=== PATIENT | male | born 1940 | race Caucasian/White ===

== ENCOUNTER 2019-11-25 11:32 | Outpatient (CLI) | payer MEDICARE, SELFPAY ==
--- NOTE | ~2019-11-25 | XR_ITS ---
XR shoulder RT min 2V DATE: 11/25/2019 11:53 INDICATION: Right shoulder pain, chronic for one year TECHNIQUE: 4 views COMPARISON: None FINDINGS: Status post sternotomy/CABG. Pacemaker leads are noted. No fracture or dislocation, periosteal reaction or bone destruction of the right shoulder. No abnorma l soft tissue calcification is identified. IMPRESSION: No fracture or dislocation or abnormal soft tissue calcification of right shoulder Reviewed, dictated and finalized at location B.
== END 2019-11-25 11:33 | disposition home or self-care (01) ==
PROVIDERS: PCP Family Medicine; Visit Provider Nurse Practitioner Family
DX: M25.511 Pain in right shoulder (principal)
CPT/HCPCS: 73030

== ENCOUNTER 2020-01-15 15:22 | Outpatient (CLI) | payer MEDICARE, SELFPAY ==
--- NOTE | ~2020-01-15 | XR_ITS ---
XR chest 2V DATE: 01/15/2020 15:50 INDICATION: Shortness of breath TECHNIQUE: PA and lateral views COMPARISON: 02/07/2018 two-view chest FINDINGS: Status post sternotomy and coronary artery bypass graft surgery. Aortic valve replacement. Left-sided triple lead pacemaker device with leads in expected position. Heart size appears within upper limits of normal. There is aortic calcification, ectasia, mild tortuo sity. No pulmonary infiltrate or consolidation or pleural effusion, pulmonary vascular congestion or pneumo thorax is evident. Chronic mild blunting of left costophrenic angle. Diffuse osteopenia. IMPRESSION: Postoperative changes Triple lead left-sided pacemaker No active cardiopulmonary disease Reviewed, dictated and finalized at location A.
[2020-01-15 15:36] LABS: Hematocrit 35.6 % (37.0-46.0); Hemoglobin 11.9 g/dL (12.4-15.3); Mean Corpuscular HGB Conc 33.4 g/dL (32.0-36.0); Mean Corpuscular Hemoglobin 33.1 pg (27.0-31.0); Mean Corpuscular Volume 98.9 fL (78.0-102.0); Mean Platelet Volume 9.4 fl (8.7-11.0); Platelet Count Result 112 K/mm3 (150-420); Red Cell Distribution Width 15.8 % (11.6-14.4); White Blood Count 6.4 K/mm3 (4.8-10.8)
[2020-01-15 15:57] LABS: BNP 301 pg/mL (0-100)
[2020-01-15 16:15] LABS: Alanine Aminotransferase 17 U/L (16-63); Albumin Level 3.8 g/dL (3.4-5.0); Alkaline Phosphatase 42 U/L (46-116); Anion Gap 13.9 mmol/L (7-16); Aspartate Amino Transferase 17 U/L (15-37); Bilirubin,Total 1.1 mg/dL (0.00-1.00); Blood Urea Nitrogen 41 mg/dL (7-18); Carbon Dioxide 30 mmol/L (21-32); Chloride 103 mmol/L (98-108); Estimated Glomerular Filt Rate 35; Glucose 121 mg/dL (70-99); Osmolality Calculated 307 mOsm/kg (285-295); Potassium 3.9 mmol/L (3.5-5.1); Sodium 143 mmol/L (136-145); Total Protein 7.2 g/dL (6.4-8.2)
== END 2020-01-15 15:23 | disposition home or self-care (01) ==
LOC: CHSLAB 15:25
PROVIDERS: PCP Family Medicine; Visit Provider Family Medicine
DX: R68.89 Other general symptoms and signs (principal); M79.89 Other specified soft tissue disorders; I50.9 Heart failure, unspecified
CPT/HCPCS: 36415; 71046; 80053; 83880; 85027

== ENCOUNTER 2020-01-21 12:45 | Inpatient (IN) | payer MEDICARE, SELFPAY ==
[2020-01-21] VITALS (17 sets, daily range): BP systolic 88–135; BP diastolic 44–84; PULSE 65–89; RESP 12–20; TEMP 36.4; O2SAT 91–100
--- NOTE | ~2020-01-21 | CT_ITS ---
EXAMINATION: CT chest abdomen pelvis wo con DATE: 01/21/2020 13:30 INDICATION: Back pain. Cough and dizziness. Abdominal aortic aneurysm. TECHNIQUE: Computed tomography (CT) of the chest, abdomen, and pelvis was performed without intraveno us contrast. Automated exposure control and iterative reconstruction technique were employed. The dos e-length product was 923.67 mGy-cm. COMPARISON: CT abdomen and pelvis 11/07/2017 FINDINGS: CHEST CT: There is mild emphysema. There is mild rounded atelectasis in left lower lobe adjacent to pleural thi ckening. A calcified right lung nodule and calcified right hilar and mediastinal lymph nodes are cons istent with old granulomatous disease. The heart size is normal. There are changes of aortic valve re placement. There are changes of coronary artery bypass grafting. There is a left chest pacer with martina ds in right atrium, right ventricle, and coronary sinus. ABDOMEN/PELVIS CT: The liver is normal. There are changes of cholecystectomy. Calcifications in the spleen are consisten t with old granulomatous disease. The pancreas and adrenal glands are normal. There is cortical thinn ing of the kidneys. There are cysts in the kidneys measuring up to 5.5 cm on the right. There is dive rticulosis of the colon without evidence of diverticulitis. There are no dilated loops of bowel. The appendix is normal. There is a 5.9 x 5.6 cm suprarenal and infrarenal fusiform aortic aneurysm. 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 There is a 2.7 cm fusiform aneurysm of l eft common iliac artery. There are no pathologically enlarged lymph nodes. There is no free intraperi toneal fluid. There is lumbar levoscoliosis and severe spondylosis. IMPRESSION: 1. 5.9 cm suprarenal and infrarenal aortic aneurysm, stable from 11/07/2017. Surgical consultation is recommended. Reviewed, dictated and finalized at location A. IMPRESSION: 1. 5.9 cm suprarenal and infrarenal aortic aneurysm, stable from 11/07/2017. Edison gical consultation is recommended.
--- NOTE | ~2020-01-21 | CT_ITS ---
EXAMINATION: CT brain wo con DATE: 01/21/2020 13:30 INDICATION: Syncope. TECHNIQUE: Computed tomography (CT) of the head was performed without intravenous contrast. The mA wa s adjusted according to patient size. Iterative reconstruction technique was employed. The dose-lengt h product was 681.00 mGy-cm. COMPARISON: Head CT 10/17/2017 FINDINGS: There is chronic encephalomalacia in the right parietal lobe. There is no intracranial hemo rrhage, acute infarction, or abnormal intracranial mass lesion. The ventricles are normal in size. Th ere is an old blowout fracture of medial wall of right orbit. The mastoid air cells are normal. IMPRESSION: 1. Chronic encephalomalacia in right parietal lobe. Reviewed, dictated and finalized at location A.
--- NOTE | 2020-01-21 12:56 | ECG_ITS ---
Measurements Intervals [place] Rate: 76 P: IA: 0 QRS: -88 QRSD: 193 T: 82 QT: 492 QTc: 557 Interpretive Statements ATRIAL FIBRILLATION RIGHT BUNDLE BRANCH BLOCK LEFT ANTERIOR FASCICULAR BLOCK BASELINE ARTIFACT- I, II, III, AVR, AVL ABNORMAL ECG Electronically Signed On 01-21-2020 13:28:07 CDT by Daniel Metzger D.O.
[2020-01-21 13:13] LABS: Glucose Point of Care 177 (65-105)
--- NOTE | 2020-01-21 13:37 | PC.NURSE ---
hand off report to TRI Bhat
[2020-01-21 13:56] LABS: Basophils Absolute Auto 0.03 K/mm3 (0.00-0.10); Basophils Percent Auto 0.4 % (0.0-1.0); Eosinophils Absolute Auto 0.15 K/mm3 (0.02-0.50); Hemoglobin 14.5 g/dL (12.4-15.3); Immature Granulocyte Absolute 0.03 K/mm3 (0.00-0.00); Immature Granulocyte Percent A 0.4 % (0.0-0.0); Lymphocytes Absolute Auto 1.34 K/mm3 (1.10-4.50); Lymphocytes Percent Auto 17.9 % (18.0-42.0); Mean Corpuscular HGB Conc 34.5 g/dL (32.0-36.0); Mean Corpuscular Hemoglobin 32.6 pg (27.0-31.0); Mean Corpuscular Volume 94.4 fL (78.0-102.0); Mean Platelet Volume 10.9 fl (8.7-11.0); Monocytes Absolute Auto 0.95 K/mm3 (0.10-0.90); Monocytes Percent Auto 12.7 % (2.0-11.0); Neutrophils Percent Auto 66.6 % (50.0-70.0); Platelet Count Result 167 K/mm3 (150-420); Red Blood Count 4.45 M/mm3 (4.70-6.10); Red Cell Distribution Width 15.3 % (11.6-14.4); White Blood Count 7.5 K/mm3 (4.8-10.8)
[2020-01-21 13:57] LABS: Base Excess ABG 4.9 mmol/L (0-2); Device NASAL CANNULA; HCO3 ABG 30.9 mmol/L (23-29); Modified Allen's Test Pass; Oxygen Content ABG 20.1 %vol (16.0-22.0); Oxygen Saturation ABG 98.7 % (95-97); Oxyhemoglobin 97.6 % (94-100); PCO2 ABG 50.9 mmHg (35-45); PO2 ABG 140.5 mmHg (75-85); Site Drawn LEFT RADIAL; Total Hemoglobin 14.5 g/dL
[2020-01-21] MEDS: SODIUM CHLORIDE 0.9% IV 1,000 ML 999 ML IV CONT (14:06)
[2020-01-21 14:14] LABS: Lactic Acid Reflex 2.5 mmol/L (0.4-2.0)
[2020-01-21 14:15] LABS: Alanine Aminotransferase 21 U/L (16-63); Alkaline Phosphatase 48 U/L (46-116); Anion Gap 14.9 mmol/L (7-16); Aspartate Amino Transferase 16 U/L (15-37); Bilirubin,Total 0.9 mg/dL (0.00-1.00); Blood Urea Nitrogen 61 mg/dL (7-18); Calcium 10.2 mg/dL (8.5-10.1); Carbon Dioxide 33 mmol/L (21-32); Chloride 94 mmol/L (98-108); Estimated CRCL calculation 21 ml/min; Estimated Glomerular Filt Rate 25; Glucose 135 mg/dL (70-99); Magnesium 2.4 mg/dL (1.8-2.4); Osmolality Calculated 307 mOsm/kg (285-295); Potassium 2.9 mmol/L (3.5-5.1); Sodium 139 mmol/L (136-145); Total Protein 8.8 g/dL (6.4-8.2); Troponin I < 0.02 ng/mL (0.00-0.056)
[2020-01-21 14:18] LABS: BNP 130 pg/mL (0-100); INR 1.3; Partial Thromboplastin Time 31.6 SEC (22.3-31.6); Prothrombin Time 13.2 Seconds (9.64-11.0)
[2020-01-21 14:48] LABS: Add Urine Microscopic? NO; Appearance Urine Clear (Clear); Bilirubin Urine Negative (Negative); Blood Urine Negative (Negative); Color Urine Yellow (Yellow); Glucose Urine UA Negative (Negative); Ketones Urine Negative (Negative); Leukocyte Esterase Ur Negative LEU/UL (Negative); Nitrate Urine Negative (Negative); Protein Urine Negative (Negative); Urobilinogen Urine 0.2 mg/dL (0.2-1.0)
[2020-01-21] MEDS: KCL 20 MEQ/SW 100 ML 100 ML 50 MEQ IVPB (14:50)
--- NOTE | 2020-01-21 15:01 | ED.SYNCOPE ---
HPI - Syncope General Chief Complaint: Syncope Stated Complaint: confussed passed out earlier today Source: patient Mode of arrival: other (from PCP office) Limitations: no limitations History of Present Illness HPI narrative: this is a 79-year-old gentleman that presents from his PCPs office after an episode of syncope that occurred earlier today. The patient states that final standing position the fall to the floor with no injuries no bowel or bladder dysfunction did not hit his head although he did have a syncopal episode witnessed by his with no no tremors, he was out for approximately a few seconds with no subsequent headaches some nausea with no vomiting no chest pain no shortness of breath no diarrhea constipation. The patient has a history of CHF, atrial fibrillation history of COPD has some a triple A that was recently repaired, patient currently is on Eliquis and Plavix. Patient's primary care physician started patellas own all along with his Lasix for excessive edema, patient apparently developed syncopal episode with dehydration and hypokalemia. Subsequently his metallic zone was discontinued, the patient presents with a blood pressure of 100/54 and was orthostatic with a systolic pressure of 80. MD complaint: loss of consciousness Onset (ago): hour(s) -: second(s) Prodromal symptoms: none and nausea/vomiting Witnessed: Yes - by Bystander Context: standing up Injuries sustained associated with event: none Current symptoms: none and weakness Related Data Home Medications Medication Instructions Recorded Confirmed albuterol sulfate 90 mcg/actuation 1 puff INHALATION Q4H PRN 08/17/19 01/21/20 aerosol inhaler allopurinol 100 mg tablet 100 mg PO DAILY 08/17/19 01/21/20 aspirin 81 mg tablet,delayed 81 mg PO DAILY 08/17/19 01/21/20 release atorvastatin 40 mg tablet 40 mg PO DAILY 08/17/19 01/21/20 carvedilol 12.5 mg tablet 12.5 mg PO Q12H 08/17/19 01/21/20 clopidogrel 75 mg tablet 75 mg PO DAILY 08/17/19 01/21/20 pregabalin 100 mg capsule 100 mg PO TID 08/17/19 01/21/20 tamsulosin 0.4 mg capsule 0.4 mg PO DAILY 08/17/19 01/21/20 finasteride 5 mg tablet 5 mg PO DAILY tablet 10/20/19 01/21/20 furosemide 20 mg tablet 20 mg PO DAILY tablet 10/20/19 01/21/20 furosemide 40 mg tablet 40 mg PO QAM tablet 10/20/19 01/21/20 Allergies Allergy/AdvReac Type Severity Reaction Status Date / Time oxycodone [OxyContin] Allergy Unknown Unknown Verified 01/15/20 07:55 Sulfonamides Allergy Unknown Unknown Uncoded 11/25/19 09:13 Review of Systems Review of Systems: All systems reviewed & are unremarkable except as noted in HPI and below PMFSH Past Medical History Medical History AAA (abdominal aortic aneurysm) Atrial fibrillation Bladder cancer CAD (coronary artery disease) Cardiac defibrillator in place CHF (congestive heart failure) CKD (chronic kidney disease), stage III COPD (chronic obstructive pulmonary disease) Erectile dysfunction REESE (generalized anxiety disorder) Gout Hypertension Myocardial infarction x3 KIARRA (obstructive sleep apnea) Uses CPAP Pacemaker Peripheral neuropathy PVD (peripheral vascular disease) Social History Social History Smoking packs per day: 1 Smoking cigarettes per day: 20.0 Years smoked: 45 Smoking pack-years: 45.00 Smoking status: Former smoker Tobacco type: cigarettes Alcohol intake: never Substance use: never Substance use type: does not use Additional living arrangements comments: . 4 Children. Additional occupation/education comments: Prior Occupation: [employer]. Gender identity (if verbalized by the patient): Male Exam Const: General: no acute distress and alert Orientation/consciousness: patient oriented x3 HENMT: Head: normal to inspection Eyes: Conjunctivae: conjunctivae normal Pupils: Equal, round and
--- NOTE | 2020-01-21 15:12 | PC.NURSE ---
RN CONTACTED [facility] CHARGE NURSE TRI MCKEON AT 1500 TO REQUEST INPATIENT ROOM PLACEMENT. LINDA STATES SHE IS UNABLE TO GIVE A BED AT THIS TIME AND WILL CALL ER BACK SOON.
--- NOTE | 2020-01-21 16:02 | PC.NURSE ---
RN CALLED BACK TO [facility] TO REQUEST A ROOM NUMBER AND TO GIVE REPORT. CHERY CHARGE NURSE PROVIDED RN WITH ROOM 205-A BUT WAS UNABLE TO TAKE REPORT AT THIS TIME. RN REQUESTED A CALL BACK WHEN SOMEONE WAS AVAILABLE TO TAKE REPORT.
[2020-01-21 16:57] LABS: Reflex Lactic Acid Yes or No Add Lactic
[2020-01-21] MEDS: SODIUM CHLORIDE 0.9% IV 1,000 ML 100 ML IV CONT (18:05)
[2020-01-21] MEDS: IPRATROPIUM 0.5 MG/ALBUTEROL SULFATE 2.5 MG AMPUL.NEB 3 ML INHALATION ×2 (18:05→23:12)
[2020-01-21] MEDS: carvediloL 3.125 MG TABLET PO (21:26)
[2020-01-21] MEDS: TRAMADOL HCL 50 MG TABLET PO (21:26)
[2020-01-22] VITALS (11 sets, daily range): BP systolic 98–135; BP diastolic 50–70; PULSE 60–91; RESP 16–18; TEMP 36.1; O2SAT 95–96
[2020-01-22] MEDS: IPRATROPIUM 0.5 MG/ALBUTEROL SULFATE 2.5 MG AMPUL.NEB 3 ML INHALATION (05:49)
[2020-01-22 05:58] LABS: Basophils Absolute Auto 0.03 K/mm3 (0.00-0.10); Basophils Percent Auto 0.4 % (0.0-1.0); Eosinophils Absolute Auto 0.15 K/mm3 (0.02-0.50); Eosinophils Percent Auto 2.2 % (1.0-6.0); Hematocrit 38.8 % (37.0-46.0); Hemoglobin 13.5 g/dL (12.4-15.3); Immature Granulocyte Absolute 0.02 K/mm3 (0.00-0.00); Immature Granulocyte Percent A 0.3 % (0.0-0.0); Immature Platelet Fraction Pct 1.9 % (1.0-7.0); Lymphocytes Absolute Auto 1.54 K/mm3 (1.10-4.50); Lymphocytes Percent Auto 22.5 % (18.0-42.0); Mean Corpuscular HGB Conc 34.8 g/dL (32.0-36.0); Mean Corpuscular Hemoglobin 32.7 pg (27.0-31.0); Mean Corpuscular Volume 93.9 fL (78.0-102.0); Mean Platelet Volume 10.4 fl (8.7-11.0); Monocytes Percent Auto 13.2 % (2.0-11.0); Neutrophils Absolute Auto 4.2 K/mm3 (1.7-7.2); Neutrophils Percent Auto 61.4 % (50.0-70.0); Platelet Count Result 144 K/mm3 (150-420); Red Blood Count 4.13 M/mm3 (4.70-6.10); Red Cell Distribution Width 15.3 % (11.6-14.4); White Blood Count 6.8 K/mm3 (4.8-10.8)
[2020-01-22 06:07] LABS: INR 1.2; Prothrombin Time 12.7 Seconds (9.64-11.0)
[2020-01-22 06:12] LABS: BNP 158 pg/mL (0-100)
[2020-01-22 06:19] LABS: Lactic Acid Reflex 1.6 mmol/L (0.4-2.0)
[2020-01-22 06:26] LABS: Alanine Aminotransferase 18 U/L (16-63); Albumin Level 3.7 g/dL (3.4-5.0); Alkaline Phosphatase 39 U/L (46-116); Anion Gap 14.5 mmol/L (7-16); Aspartate Amino Transferase 15 U/L (15-37); Bilirubin,Total 0.8 mg/dL (0.00-1.00); Blood Urea Nitrogen 57 mg/dL (7-18); Calcium 9.4 mg/dL (8.5-10.1); Carbon Dioxide 31 mmol/L (21-32); Chloride 98 mmol/L (98-108); Estimated CRCL calculation 25 ml/min; Estimated Glomerular Filt Rate 31; Glucose 114 mg/dL (70-99); Osmolality Calculated 308 mOsm/kg (285-295); Sodium 141 mmol/L (136-145); Total Protein 7.5 g/dL (6.4-8.2)
[2020-01-22 06:27] LABS: Potassium 2.5 mmol/L (3.5-5.1)
--- NOTE | 2020-01-22 08:00 | PC.NURSE ---
Eating breakfast at the bedside, denies dizzyness this am, states feeling fine
[2020-01-22] MEDS: APIXABAN 2.5 MG TABLET 5 MG PO (08:40)
[2020-01-22] MEDS: TAMSULOSIN HCL 0.4 MG CAPSULE PO (08:40)
[2020-01-22] MEDS: ASPIRIN 81 MG ENTERIC TABLET PO (08:40)
[2020-01-22] MEDS: FINASTERIDE 5 MG TABLET PO (08:41)
[2020-01-22] MEDS: PREGABALIN 50 MG CAPSULE 100 MG PO (08:41)
[2020-01-22] MEDS: POTASSIUM CHLORIDE 10 MEQ TABLET PO (08:41)
[2020-01-22] MEDS: ATORVASTATIN 40 MG TABLET PO (08:41)
[2020-01-22] MEDS: FUROSEMIDE 40 MG TABLET PO (08:41)
[2020-01-22] MEDS: CLOPIDOGREL BISULFATE 75 MG TABLET PO (08:41)
[2020-01-22] MEDS: allopurinoL 100 MG TABLET PO (08:41)
[2020-01-22] MEDS: TRAZODONE HCL 50 MG TABLET PO (08:41)
[2020-01-22] MEDS: TRAMADOL HCL 50 MG TABLET PO (08:42)
--- NOTE | 2020-01-22 09:10 | PC.NURSE ---
Patient removed telemetry, states is going home, advised would have to check with doctor, states that doesn't matter, he is going home
--- NOTE | 2020-01-22 09:15 | PC.NURSE ---
Putting shoes on, states will need help to tie them, up in room independent, no dizzyness noted, gait steady, states is going home no matter what today, not willing to have IV restarted at this time, did take oral medication this am
--- NOTE | 2020-01-22 09:25 | PC.NURSE ---
Hospitalist on the phone with , patient carleygloriared spoke with on the phone, states is leaving and promptly proceeded to elevator to leave, followed patient down to ER admitting area, states will not stay and doens't have to , [place] he feels [place] will follow up with his regular doctor
--- NOTE | 2020-01-22 09:30 | PC.NURSE ---
contacted by admitting department and states daughter is on her way to get patient
--- NOTE | 2020-01-22 09:35 | PC.NURSE ---
Leaving against medical advice, states will not put up with this any more, doesn't want an IV and feels fine, nothing wrong with him, signed the AMA form under diress per patient, did not refuse to sign, was willing to take oral medication but felt like he was being forced to stay and no one would listen to him, did not like how he was being treated by the providers this am, states will walk over to the doctors office to talk to them,
== END 2020-01-22 09:40 | disposition left against medical advice (07) | DRG 641 ==
LOC: CHSED 12:49 → CHS2ND 16:15
PROVIDERS: Admitting Provider Emergency Medicine; Emergency Provider Emergency Medicine; PCP Family Medicine; Visit Provider Emergency Medicine
DX: E86.0 Dehydration (principal); E87.6 Hypokalemia; I13.0 Hypertensive heart and chronic kidney disease with heart failure and stage 1 through stage 4 chronic kidney disease, or unspecified chronic kidney disease; I50.9 Heart failure, unspecified; N18.3 Chronic kidney disease, stage 3 (moderate); I48.20 Chronic atrial fibrillation, unspecified; J44.9 Chronic obstructive pulmonary disease, unspecified; I73.9 Peripheral vascular disease, unspecified; G62.9 Polyneuropathy, unspecified; M10.9 Gout, unspecified; I25.10 Atherosclerotic heart disease of native coronary artery without angina pectoris; Z95.810 Presence of automatic (implantable) cardiac defibrillator; G47.33 Obstructive sleep apnea (adult) (pediatric); I25.2 Old myocardial infarction; Z87.891 Personal history of nicotine dependence; I71.4 Abdominal aortic aneurysm, without rupture; R55 Syncope and collapse; F41.1 Generalized anxiety disorder; Z53.29 Procedure and treatment not carried out because of patient's decision for other reasons
CPT/HCPCS: 36415; 36600; 70450; 71250; 74176; 80053; 81003; 82805; 82948; 83605; 83735; 83880; 84484; 85025; 85055; 85380; 85610; 85730; 93005; 94640; 96361; 96365; 99285; A9270; J3480; J7030

== ENCOUNTER 2020-01-22 10:39 | Outpatient (CLI) | payer MEDICARE, SELFPAY ==
--- NOTE | ~2020-01-22 | NM_ITS ---
EXAMINATION: NM pulmonary perfusion DATE: 01/22/2020 11:20 INDICATION: Shortness of breath. TECHNIQUE: 4.5 mCi Tc-99m MAA was administered intravenously for perfusion images. Scintigraphic im ages of the chest were obtained. COMPARISON: Chest CT 01/21/2020, chest radiographs 01/15/2020 FINDINGS: Perfusion images show large defects in the upper lobes and left lower lobe. ] IMPRESSION: 1. Nondiagnostic (low or intermediate probability). Reviewed, dictated and finalized at location A.
--- NOTE | 2020-01-23 01:43 | PM.EVENT ---
Event Note Event Note Event Note: Patient states that he feels well this morning is adamant about going home soon as possible. I explained that he needed to complete testing to ensure that he did not have in a board or daily cause of his syncope and the patient states that he does not want any further testing and wants to leave the hospital. I told him that he may have grave disability, or rehospitalization if his potassium is not corrected pulmonary emboli are not ruled out. Patient states he understands and wishes to go home now. alert and oriented. No respiratory distress. Lungs are clear to auscultation bilaterally. Irregularly irregular Within normal rate. Extremities are warm dry and pink with scant edema At the ankles. Patient signed AMA to leave today. I have examined the patient and reviewed the chart. I discussed the patient with A Marito HESS and agree with her assessment and plan.
== END 2020-01-22 10:40 | disposition home or self-care (01) ==
PROVIDERS: PCP Family Medicine; Visit Provider Emergency Medicine
DX: R79.89 Other specified abnormal findings of blood chemistry (principal)
CPT/HCPCS: 78580; A9540

== ENCOUNTER 2020-04-15 15:21 | Outpatient (CLI) | payer MEDICARE, SELFPAY ==
[2020-04-15 15:52] LABS: Creatinine Urine 59.43 mg/dL (40-278); Total Protein Urine Random < 7.0 mg/dL (0.0-11.9)
[2020-04-15 16:34] LABS: Anion Gap 9 mmol/L (8-16); Blood Urea Nitrogen 31 mg/dL (7-18); Calcium 8.7 mg/dL (8.5-10.1); Carbon Dioxide 29 mmol/L (21-32); Chloride 104 mmol/L (98-108); Estimated Glomerular Filt Rate 39; Glucose 94 mg/dL (70-99); Osmolality Calculated 300 mOsm/kg (285-295); Phosphorus 4.3 mg/dL (2.6-4.7); Potassium 4.2 mmol/L (3.5-5.1); Sodium 142 mmol/L (136-145)
[2020-04-19 15:25] LABS: Parathyroid Intact 144 pg/mL (14-64)
[2020-04-19 19:25] LABS: Vitamin D 25 Hydroxy 48 ng/mL (30-100)
== END 2020-04-15 15:22 | disposition home or self-care (01) ==
LOC: CHSLAB 15:25
PROVIDERS: PCP Internal Medicine; Visit Provider Internal Medicine Nephrology
DX: N18.3 Chronic kidney disease, stage 3 (moderate) (principal); I12.9 Hypertensive chronic kidney disease with stage 1 through stage 4 chronic kidney disease, or unspecified chronic kidney disease; R80.8 Other proteinuria
CPT/HCPCS: 36415; 80069; 82306; 82570; 83970; 84156

== ENCOUNTER 2020-06-27 14:49 | Outpatient (CLI) | payer MEDICARE, SELFPAY ==
--- NOTE | ~2020-06-27 | CT_ITS ---
EXAMINATION: CT abdomen pelvis wo con DATE: 06/27/2020 17:09 INDICATION: Acute left lower quadrant pain and blood in stools. TECHNIQUE: Computed tomography (CT) of the abdomen and pelvis was performed without intravenous contr ast. Automated exposure control and iterative reconstruction technique were employed. The dose-length product was 893.67 mGy-cm. COMPARISON: 01/21/2020 FINDINGS: Unchanged band of chronic round atelectasis extending across the left lower lobe. Chronic trace left pleural effusion likely loculated with pleural thickening. Calcified right lower lobe nodule consiste nt with old granulomatous disease. Heart size is normal. Partially visualized change of prior aortic valve replacement. Three lead pacemaker/AICD seen with lead tips terminating at the right atrial appe ndage, apex of the right ventricle and in a coronary vein along the lateral wall of the left ventricl e having traversed the coronary sinus. No pericardial effusion. Cholecystectomy clips at the gallbladder fossa. A few splenic calcifications consistent with old gran ulomatous disease. Liver, pancreas and bilateral adrenal glands are normal. Bilateral renal cortical atrophy, mild on the right and moderate on the left. Bilateral renal cysts the largest on the right m easuring 6.0 cm. There is mild colonic diverticulosis with a sigmoid predominance. There is no adjac ent inflammatory change to suggest diverticulitis. Normal appendix. There is contrast throughout the small bowel extending into the cecum with no obstruction. Short segment of small bowel extends acros s a shallow widemouthed ventral hernia along an oblique surgical scar at the left lower quadrant ante rior abdominal wall. Bladder is normal. There is extensive calcified atherosclerosis of the aorta and many of the other arteries. Fusiform a bdominal aortic aneurysm with superimposed small left-sided saccular component between the levels of the takeoff of the celiac axis and superior mesenteric artery where it measures up to 5.8 x 5.4 cm wh ich is without significant interval change. No significant interval change in a 2.0 cm fusiform aneur ysm of the right common iliac artery and 2.7 x 2.4 cm fusiform aneurysm of the left common iliac sona ry. Bilateral fat-containing inguinal hernias. No free intraperitoneal gas or fluid. No pathologicall y enlarged abdominal or pelvic lymphadenopathy. Mild lumbar levocurvature with severe spondylosis. IMPRESSION: 1. No acute intra-abdominal/pelvic process. 2. No significant interval change in a fusiform abdominal aortic aneurysm which measures up to 5.8 x 5.4 cm in maximal diameter proximally. If not performed in the interval, surgical consultation would be indicated. Reviewed, dictated and finalized at location A. GE HAND IMPRESSION: 1. No acute intra-abdominal/pelvic process. 2. No significant interval change in a fusiform abdominal aortic aneurysm which measures up to 5.8 x 5.4 cm in maximal diameter proximally. If not performed i n the interval, surgical consultation would be indicated.
[2020-06-27 15:08] LABS: Basophils Absolute Auto 0.04 K/mm3 (0.00-0.10); Basophils Percent Auto 0.6 % (0.0-1.0); Eosinophils Absolute Auto 0.14 K/mm3 (0.02-0.50); Eosinophils Percent Auto 2.3 % (1.0-6.0); Hematocrit 32.7 % (37.0-46.0); Hemoglobin 10.8 g/dL (12.4-15.3); Immature Granulocyte Absolute 0.01 K/mm3 (0.00-0.00); Immature Granulocyte Percent A 0.2 % (0.0-0.0); Immature Platelet Fraction Pct 2.4 % (1.0-7.0); Immature Reticulocyte Fraction 13.7 % (2.0-16.52); Lymphocytes Absolute Auto 1.29 K/mm3 (1.10-4.50); Lymphocytes Percent Auto 20.8 % (18.0-42.0); Mean Corpuscular Hemoglobin 32.9 pg (27.0-31.0); Mean Corpuscular Volume 99.7 fL (78.0-102.0); Mean Platelet Volume 10.4 fl (8.7-11.0); Monocytes Absolute Auto 0.75 K/mm3 (0.10-0.90); Monocytes Percent Auto 12.1 % (2.0-11.0); Platelet Count Result 100 K/mm3 (150-420); Red Blood Count 3.28 M/mm3 (4.70-6.10); Red Cell Distribution Width 15.2 % (11.6-14.4); Reticulocyte Hemoglobin Conten 37.6 pg (28.0-35.0); Reticulocytes Absolute 0.08 M/mm3 (0.02-0.1); White Blood Count 6.2 K/mm3 (4.8-10.8)
[2020-06-27 15:28] LABS: INR 1.2; Partial Thromboplastin Time 29.2 SEC (22.3-31.6); Prothrombin Time 12.6 Seconds (9.64-11.0)
[2020-06-27 15:33] LABS: Alanine Aminotransferase 18 U/L (16-63); Albumin Level 3.7 g/dL (3.4-5.0); Alkaline Phosphatase 37 U/L (46-116); Aspartate Amino Transferase 14 U/L (15-37); Bilirubin,Total 0.7 mg/dL (0.00-1.00); Carbon Dioxide 31 mmol/L (21-32); Chloride 105 mmol/L (98-108); Ferritin 141 ng/mL (26-388); Potassium 4.4 mmol/L (3.5-5.1); Sodium 142 mmol/L (136-145); Total Protein 7.2 g/dL (6.4-8.2)
[2020-06-27 15:35] LABS: Anion Gap 6 mmol/L (8-16); Blood Urea Nitrogen 38 mg/dL (7-18); Estimated Glomerular Filt Rate 41; Glucose 100 mg/dL (70-99); Osmolality Calculated 303 mOsm/kg (285-295)
[2020-06-27 15:52] LABS: Iron 118 ug/dL (65-175); Percent Iron Saturation 41 % (12-57)
== END 2020-06-27 14:50 | disposition home or self-care (01) ==
LOC: CHSLAB 14:53
PROVIDERS: PCP Internal Medicine; Visit Provider Internal Medicine
DX: R10.32 Left lower quadrant pain (principal); K92.1 Melena
CPT/HCPCS: 36415; 74176; 80053; 82728; 83540; 83550; 85025; 85046; 85055; 85610; 85730

== ENCOUNTER 2020-07-02 02:02 | Outpatient (CLI) | payer MEDICARE, SELFPAY ==
[2020-07-02 18:04] LABS: SARS-CoV-2 RNA PCR Negative
== END 2020-07-02 02:03 | disposition home or self-care (01) ==
LOC: ANHCOVIDDT 02:03
PROVIDERS: PCP Internal Medicine; Visit Provider Surgery
DX: Z01.818 Encounter for other preprocedural examination (principal); Z20.828 Contact with and (suspected) exposure to other viral communicable diseases
CPT/HCPCS: 87635; C9803; U0003

== ENCOUNTER 2020-07-05 02:49 | Day surgery (SDC) | payer MEDICARE, SELFPAY ==
[2020-07-01 12:44] VITALS: BMI 28.8
--- NOTE | 2020-07-05 07:21 | WPDANESEPPF ---
Anes - Initial Pre Proc Eval Procedure: Operation Date: 07/05/20 13:30 Proposed Procedures p Esophagogastroduodenoscopy & Colonoscopy - Luis Mckinney MD Date/Time: 07/05/20 07:21 Surgeon: Luis Mckinney MD Pre Op Diagnosis: Melena, GI Bleed Patient Data Age: 80 Gender: M Height: 1.73 m Weight: 86 kg Allergies Allergy/AdvReac Type Severity Reaction Status Date / Time oxycodone [OxyContin] Allergy Unknown Hallucinati Verified 07/05/20 11:12 ng Sulfa (Sulfonamide Allergy Unknown Rash Verified 07/05/20 11:12 Antibiotics) Home Medications Medication Instructions Recorded Confirmed Type apixaban 5 mg tablet 5 mg PO BID #180 tablet 07/31/19 07/01/20 Rx allopurinol 100 mg tablet 100 mg PO DAILY 08/17/19 07/01/20 History aspirin 81 mg tablet,delayed 81 mg PO DAILY 08/17/19 07/01/20 History release atorvastatin 40 mg tablet 40 mg PO DAILY 08/17/19 07/01/20 History carvedilol 12.5 mg tablet 12.5 mg PO Q12H 08/17/19 07/01/20 History pregabalin 100 mg capsule 100 mg PO TID 08/17/19 07/01/20 History tamsulosin 0.4 mg capsule 0.4 mg PO DAILY 08/17/19 07/01/20 History finasteride 5 mg tablet 5 mg PO DAILY tablet 10/20/19 07/01/20 History furosemide 20 mg tablet 20 mg PO QPM tablet 10/20/19 07/01/20 History furosemide 40 mg tablet 40 mg PO QAM tablet 10/20/19 07/01/20 History tramadol 50 mg tablet 50 mg PO Q6H #90 each 01/04/20 07/01/20 Rx trazodone 50 mg tablet 50 mg PO TID #90 tablet 01/08/20 07/01/20 Rx potassium chloride 20 mEq 40 meq PO DAILY #180 tablet 02/01/20 07/01/20 Rx tablet,extended release Other Studies: There is extensive calcified atherosclerosis of the aorta and many of the other arteries. Fusiform abdominal aortic aneurysm with superimposed small left-sided saccular component between the levels of the takeoff of the celiac axis and superior mesenteric artery where it measures up to 5.8 x 5.4 cm which is without significant interval change. 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 Bilateral fat-containing inguinal hernias. No free intraperitoneal gas or fluid. No pathologically enlarged abdominal or pelvic lymphadenopathy. Mild lumbar levocurvature with severe spondylosis. IMPRESSION: 1. No acute intra-abdominal/pelvic process. 2. No significant interval change in a fusiform abdominal aortic aneurysm which measures up to 5.8 x 5.4 cm in maximal diameter proximally. If not performed in the interval, surgical consultation would be indicated. Patient hx anesthesia problems: none Family hx anesthesia problems: none [facility] Past Medical History Medical History (Updated 06/30/20 @ 08:53 by Regla Medrano) AAA (abdominal aortic aneurysm) Atrial fibrillation Bladder cancer CAD (coronary artery disease) Cardiac defibrillator in place CHF (congestive heart failure) CKD (chronic kidney disease), stage III COPD (chronic obstructive pulmonary disease) Erectile dysfunction REESE (generalized anxiety disorder) Gout High cholesterol Hypertension Myocardial infarction x3 KIARRA (obstructive sleep apnea) Uses CPAP Pacemaker Peripheral neuropathy PVD (peripheral vascular disease) Surgical History Surgical History (Updated 07/05/20 @ 07:24 by Chip Duarte MD) AICD (automatic cardioverter/defibrillator) present History of aortic valve repair History of back surgery History of bladder surgery TURB procedure 2009 History of cholecystectomy History of coronary artery stent placement History of heart valve replacement History of hernia repair incisional History of tonsillectomy and adenoidectomy History of transcatheter aortic valve replacement (TAVR) S/P CABG (coronary artery bypass graft) Status post placement of cardiac pacemaker Family History Family History (Reviewed 06/30/20 @ 08:07 by Hodan Villalta [facility] [address]) Father Family history of aortic aneurysm
[2020-07-05 11:12] VITALS: BP 108/55; PULSE 70; RESP 16; TEMP 35.9; O2SAT 93
[2020-07-05] MEDS: AMPICILLIN 2 GM/NS 100 ML 2 GM/100 ML BAG IVPB (11:27)
[2020-07-05] MEDS: LACTATED RINGERS 1,000 ML 150 ML IV CONT (11:28)
[2020-07-05 11:35] LABS: Hematocrit 29.9 % (42.0-52.0); Hemoglobin 9.8 g/dL (14.0-18.0); Mean Corpuscular HGB Conc 32.8 g/dl (32-36); Mean Corpuscular Hemoglobin 33.1 pg (26-34); Mean Platelet Volume 10.3 fl (7.4-10.4); Platelet Count Result 100 k/mm3 (150-375); Red Blood Count 2.96 M/mm3 (4.6-6.20); Red Cell Distribution Width 16.7 % (11.5-14.5); White Blood Count 7.5 K/mm3 (4.5-10.0)
[2020-07-05 11:51] LABS: Anion Gap 11 mmol/L (8-16); Blood Urea Nitrogen 18 mg/dL (9-20); Carbon Dioxide 30 mmol/L (22-30); Chloride 98 mmol/L (98-107); Estimated CRCL calculation 35 ml/min; Estimated Glomerular Filt Rate 45; Glucose 110 mg/dL (75-110); Potassium 3.6 mmol/L (3.4-5.0); Sodium 139 mmol/L (137-145)
[2020-07-05] MEDS: GENTAMICIN 80MG/SOD CHL 50 ML 80 MG/50 ML BAG 100 MG IVPB (12:08)
[2020-07-05] MEDS: BENZOCAINE (*SP) 60 ML SPRAY CAN (HURRICAINE) 1 SPRAY MUCOUS MEM (12:14)
--- NOTE | 2020-07-05 12:19 | WPDHPUPDATE1 ---
History and Physical Update Update Date/Time: 07/05/20 12:19 History and Physical has been reviewed, including an updated exam of the patient. There are NO changes in the patient's condition. Risks, benefits, and alternatives have been discussed and questions answered. Patient agrees to proceed with procedure.
--- NOTE | 2020-07-05 12:31 | SUR.OPER ---
EGD COMPLETED AT 1237 COLONOSCOPY STARTED AT 1245
[2020-07-05 13:31] VITALS: BP 97/52; PULSE 52; RESP 12; O2SAT 99
--- NOTE | 2020-07-05 13:31 | SUR.OPER ---
DR. DICKSON TO CALL AND UPDATE SPOUSE AND ASK HER TO COME TO HOSPITAL
[2020-07-05 13:41] VITALS: BP 101/61; PULSE 70; RESP 18; O2SAT 96
[2020-07-05 13:51] VITALS: BP 120/72; PULSE 70; RESP 13; O2SAT 96
== END 2020-07-05 14:33 | disposition home or self-care (01) ==
PROVIDERS: PCP Internal Medicine; Visit Provider Surgery
PROC: 0DJ08ZZ Inspection of Upper Intestinal Tract, Via Natural or Artificial Opening Endoscopic (ICD-10-PCS; CPT 43235; principal; 2020-07-05 13:30)
DX: K92.2 Gastrointestinal hemorrhage, unspecified (principal); K63.5 Polyp of colon; K29.50 Unspecified chronic gastritis without bleeding; K57.30 Diverticulosis of large intestine without perforation or abscess without bleeding; I48.20 Chronic atrial fibrillation, unspecified; I13.0 Hypertensive heart and chronic kidney disease with heart failure and stage 1 through stage 4 chronic kidney disease, or unspecified chronic kidney disease; I50.9 Heart failure, unspecified; I25.10 Atherosclerotic heart disease of native coronary artery without angina pectoris; I71.4 Abdominal aortic aneurysm, without rupture; I73.9 Peripheral vascular disease, unspecified; I25.2 Old myocardial infarction; N18.30 Chronic kidney disease, stage 3 unspecified; J44.9 Chronic obstructive pulmonary disease, unspecified; E78.00 Pure hypercholesterolemia, unspecified; M10.9 Gout, unspecified; G62.9 Polyneuropathy, unspecified; G47.33 Obstructive sleep apnea (adult) (pediatric); F41.1 Generalized anxiety disorder; Z85.51 Personal history of malignant neoplasm of bladder; Z95.0 Presence of cardiac pacemaker; Z79.01 Long term (current) use of anticoagulants; Z95.2 Presence of prosthetic heart valve; Z87.891 Personal history of nicotine dependence
CPT/HCPCS: 43239; 45380; 36415; 80048; 85027; 87081; 88305; 88342; J0290; J1580; J2001; J2704; J7120

== ENCOUNTER 2020-08-11 14:01 | Outpatient (CLI) | payer MEDICARE, SELFPAY ==
[2020-08-11 14:24] LABS: Creatinine Urine 156.75 mg/dL (40-278); Total Protein Urine Random 12.8 mg/dL (0.0-11.9); Ur Ttl Prot Creatinine Ratio 0.08 mg/mg (0-0.20)
[2020-08-11 15:23] LABS: Albumin Level 3.6 g/dL (3.4-5.0); Anion Gap 6 mmol/L (8-16); Blood Urea Nitrogen 18 mg/dL (7-18); Calcium 8.8 mg/dL (8.5-10.1); Carbon Dioxide 32 mmol/L (21-32); Chloride 104 mmol/L (98-108); Estimated Glomerular Filt Rate 42; Glucose 128 mg/dL (70-99); Osmolality Calculated 297 mOsm/kg (285-295); Phosphorus 3.5 mg/dL (2.6-4.7); Potassium 3.3 mmol/L (3.5-5.1); Sodium 142 mmol/L (136-145)
== END 2020-08-11 14:02 | disposition home or self-care (01) ==
LOC: CHSLAB 14:03
PROVIDERS: PCP Internal Medicine; Visit Provider Internal Medicine Nephrology
DX: R80.8 Other proteinuria (principal); I12.9 Hypertensive chronic kidney disease with stage 1 through stage 4 chronic kidney disease, or unspecified chronic kidney disease; N18.30 Chronic kidney disease, stage 3 unspecified
CPT/HCPCS: 36415; 80069; 82570; 84156

== ENCOUNTER 2020-09-20 12:43 | Outpatient (CLI) | payer MEDICARE, SELFPAY ==
--- NOTE | ~2020-09-20 | US_ITS ---
EXAMINATION: US carotid duplex BI DATE: 09/20/2020 13:35 INDICATION: Carotid stenosis TECHNIQUE: Grayscale, color Doppler, and pulsed Doppler images of the cervical carotid arteries were obtained. The degree of vessel stenosis is placed in one of the following categories: normal, <50%, 5 0-69%, >=70% but less than near-occlusion, near-occlusion, or total occlusion. Note that percent sten osis relative to normal distal artery lumen diameter is indirectly measured from velocity measurement s as described by Krish, et al. Radiology 2003; 229:340-346. COMPARISON: 11/29/2010 FINDINGS: RIGHT: The right common carotid artery (CCA) peak systolic velocity (PSV) is 56 cm/s. The right internal car otid artery (ICA) PSV is 88 cm/s. The right ICA end-diastolic velocity (EDV) is 15 cm/s. The right IC A/CCA PSV ratio is 1.6. Grayscale and color Doppler images yield an estimate of <50% diameter reducti on from plaque in the ICA. The external carotid artery (ECA) PSV is 131 cm/s. There is antegrade flow in the right vertebral artery. LEFT: The left CCA PSV is 53 cm/s. The left ICA PSV is 78 cm/s. The left ICA EDV is 22 cm/s. The left ICA/C CA PSV ratio is 1.5. Grayscale and color Doppler images yield an estimate of <50% diameter reduction from plaque in the ICA. The ECA PSV is 71 cm/s. There is antegrade flow in the left vertebral artery. IMPRESSION: 1. <50% stenosis in the right internal carotid artery. 2. <50% stenosis in the left internal carotid artery. Reviewed, dictated and finalized at location B. [employer]
== END 2020-09-20 12:44 | disposition home or self-care (01) ==
LOC: CHSIMG 12:44
PROVIDERS: PCP Internal Medicine; Visit Provider Internal Medicine
DX: I65.29 Occlusion and stenosis of unspecified carotid artery (principal)
CPT/HCPCS: 93880

== ENCOUNTER 2020-12-29 10:40 | Inpatient (IN) | payer MEDICARE, SELFPAY ==
[2020-12-29] VITALS (24 sets, daily range): BP systolic 111–140; BP diastolic 54–84; PULSE 70–76; RESP 11–25; TEMP 35.6–36.6; O2SAT 93–100; BMI 29.1
--- NOTE | ~2020-12-29 | CT_ITS ---
EXAMINATION: CT chest abdomen pelvis wo con EXAM DATE: 12/30/2020 10:20 INDICATION: Abdominal aneurysm. TECHNIQUE: Spiral CT of the chest, abdomen and pelvis was performed without contrast. Axial, ruth l and sagittal images chest, abdomen and pelvis were reviewed. Coronal maximum intensity pixel image s of chest reviewed. The dose-length product (DLP) for this examination was 880.84 mGy-cm. The expo sure was tailored according to patient size (auto mA exposure control), and iterative reconstruction (ASIR) was used as additional dose reduction technique. Prior abdomen pelvis CT 06/27/2020 comparison and chest abdomen pelvis CT 01/21/2020. FINDINGS: CHEST: Some small scattered bilateral groundglass opacities, nonspecific pneumonitis. There are some different regions of less apparent groundglass opacity in the lungs on previous examination. Left lo wer lobe round atelectasis and right basilar calcified granuloma unchanged. Small left pleural effusi on. Tracheobronchial tree is patent. There is no mediastinal, hilar or axillary lymphadenopathy. There is no pneumothorax. Heart normal in size. There are sternotomy wires, and cardiac/coronary surgical changes. Correlate with prior history. Pacemaker/AICD device. Aortic valve stent.Small amou nt of ventricular septal fat attenuation probably an old infarction. The interventricular septum is p erceptible, suggesting patient is anemic. ABDOMEN PELVIS: Aneurysmal dilation of the entire abdominal aorta, with the proximal aorta having a s accular appearance, again measuring 5.9 cm x 4.0 cm. There is extension into the left common iliac ar tanya which measures 2.5 cm. The liver, spleen, adrenal glands and pancreas are unremarkable. There are cholecystectomy clips. T here is no nephrolithiasis or hydronephrosis. Bilateral renal cysts again noted largest on the right up to 6 cm. There is bilateral renal cortical thinning, atrophy. The prostate is unremarkable. Small bilateral inguinal fat-containing hernias. The bladder is unremarkable. There is no retroperitonea l or pelvic lymphadenopathy. There is extensive scattered arterial sclerotic disease. The appendix is not positively visualized. There is no pericecal inflammatory change to suggest appe ndicitis. There is mild to moderate scattered colonic diverticulosis. There is no adjacent inflammat ory change to suggest diverticulitis. The stomach and small bowel are unremarkable. There is expect ed amount of colonic stool. No free intraperitoneal gas. There are no osteoblastic or osteolytic lesions identified. Mild to moderate lumbar levoscoliosis and moderate to severe disc disease. IMPRESSION: 1. Stable size to saccular suprarenal and more fusiform infrarenal abdominal aortic aneurysms up to 5.9 cm; vascular surgical consult indicated. 2. Some small scattered groundglass density opacities, nonspecific pneumonitis. 3. Small left pleural effusion. 4. Scattered colonic diverticulosis. 5. Small inguinal hernias. Reviewed, dictated and finalized at location B. IMPRESSION: 1. Stable size to saccular suprarenal and more fusiform infrarenal abdominal a ortic aneurysms up to 5.9 cm; vascular surgical consult indicated. 2. Some small scattered groundglass density opacities, nonspecific pneumonitis . 3. Small left pleural effusion. 4. Scattered colonic diverticulosis. 5. Small inguinal hernias.
--- NOTE | ~2020-12-29 | XR_ITS ---
EXAMINATION: XR chest 2V EXAM DATE: 12/29/2020 11:45 INDICATION: Shortness of breath and dizziness. TECHNIQUE: Frontal and lateral projections of the chest obtained and reviewed. Comparison is made to prior examination from 01/15/2020. FINDINGS: Multi lead pacemaker/AICD device. Sternotomy wires are present without findings to suggest sternal dehiscence. Stent across the aortic valve. There is pulmonary vascular congestion. There is no pneumothorax suspected. Possible mild pulmonary edema. There are mild bony degenerative changes. T here is aortic arteriosclerosis. IMPRESSION: 1. Cardiomegaly, congestion and possible mild pulmonary edema. Reviewed, dictated and finalized at location B.
--- NOTE | 2020-12-29 10:59 | ECG_ITS ---
Measurements Intervals [place] Rate: 69 P: [place]: 0 QRS: -84 QRSD: 183 T: 113 QT: 496 QTc: 535 Interpretive Statements ELECTRONIC VENTRICULAR PACEMAKER BASELINE ARTIFACT- I, III, AVR, AVL NO FURTHER INTERPRETATION IS POSSIBLE ATYPICAL ECG Electronically Signed On 12-29-2020 12:31:21 CDT by Daniel Metzger D.O.
[2020-12-29 11:28] LABS: Basophils Percent Auto 0.4 % (0.2-1.2); Eosinophils Absolute Auto 0.1 K/mm3 (0-0.3); Eosinophils Percent Auto 2.6 % (0-4.4); Hematocrit 21.5 % (42.0-52.0); Immature Granulocyte Absolute 0.02 K/mm3 (0.00-0.031); Immature Granulocyte Percent A 0.4 % (0-0.5); Lymphocytes Absolute Auto 0.98 K/mm3 (0.9-3.2); Lymphocytes Percent Auto 21.5 % (18.3-44.2); Mean Corpuscular HGB Conc 30.7 g/dl (32-36); Mean Corpuscular Hemoglobin 31.6 pg (26-34); Mean Corpuscular Volume 102.9 fl (80-100); Mean Platelet Volume 11.4 fl (7.4-10.4); Monocytes Absolute Auto 0.6 K/mm3 (0.1-0.6); Monocytes Percent Auto 13.8 % (2.6-8.5); Neutrophils Absolute Auto 2.8 K/mm3 (1.3-6.7); Neutrophils Percent Auto 61.3 % (45.5-73.1); Platelet Count Result 104 k/mm3 (150-375); Red Blood Count 2.09 M/mm3 (4.6-6.20); Red Cell Distribution Width 16.5 % (11.5-14.5); White Blood Count 4.6 K/mm3 (4.5-10.0)
[2020-12-29 11:31] LABS: Hemoglobin 6.6 g/dL (14.0-18.0)
[2020-12-29 11:39] LABS: Anion Gap 6 mmol/L (8-16); Blood Urea Nitrogen 33 mg/dL (9-20); Calcium 8.7 mg/dL (8.4-10.2); Carbon Dioxide 31 mmol/L (22-30); Chloride 104 mmol/L (98-107); Estimated CRCL calculation 30 ml/min; Estimated Glomerular Filt Rate 32; Glucose 112 mg/dL (75-110); Potassium 3.5 mmol/L (3.4-5.0); Sodium 141 mmol/L (137-145)
[2020-12-29 11:47] LABS: NT Pro B Type Natriuretic Pept 2600 pg/mL (5-100)
[2020-12-29 12:09] LABS: Iron 27 ug/dL (49-181)
[2020-12-29 12:11] LABS: Prothrombin Time 22.9 Seconds (11.1-14.7)
[2020-12-29 12:12] LABS: Partial Thromboplastin Time 44.5 SECONDS (22.3-36.8)
[2020-12-29 12:19] LABS: Percent Iron Saturation 8 % (20-50)
--- NOTE | 2020-12-29 12:22 | PC.NURSE ---
Called Xin and lab to add on retic count
[2020-12-29 12:26] LABS: Immature Reticulocyte Fraction 19.8 % (3.0-15.9); Reticulocyte Hemoglobin Conten 20.7 pg (28.2-35.7); Reticulocyte Percent 4.24 % (0.7-4.3); Reticulocytes Absolute 0.09 B/L (32.2-175.7)
--- NOTE | 2020-12-29 13:07 | ED.SOB ---
HPI - SOB/Dyspnea General Chief Complaint: Shortness of Breath/Dyspnea Stated Complaint: sob x several weeks Time Seen by Provider: 12/29/20 11:22 Source: patient Mode of arrival: ambulatory Limitations: no limitations History of Present Illness HPI Narrative: 80-year-old male History of A. fib, CHF Complains of worsening dyspnea for about 2 weeks and general fatigue and weakness This is a gradual and subacute onset, less pronounced when supine or trying to sleep but very bothersome to him when he was trying to walk around He does not report any swelling or weight gain He has been followed by cardiologists in [place] and reported that when he is felt like this before it was felt to be heart failure and they may have made some adjustments to his pacemaker he is not sure about that He does not have a cough or a fever, he has not had any chest pain He denies nausea vomiting, no change in his stools except that he tends to be constipated About 6 months ago he had an EGD showing gastritis Related Data Home Medications Medication Instructions Recorded Confirmed allopurinol 100 mg tablet 100 mg PO DAILY 08/17/19 07/01/20 aspirin 81 mg tablet,delayed 81 mg PO DAILY 08/17/19 07/01/20 release atorvastatin 40 mg tablet 40 mg PO DAILY 08/17/19 07/01/20 carvedilol 12.5 mg tablet 12.5 mg PO Q12H 08/17/19 07/01/20 pregabalin 100 mg capsule 100 mg PO TID 08/17/19 07/01/20 tamsulosin 0.4 mg capsule 0.4 mg PO DAILY 08/17/19 07/01/20 finasteride 5 mg tablet 5 mg PO DAILY tablet 10/20/19 07/01/20 furosemide 20 mg tablet 20 mg PO QPM tablet 10/20/19 07/01/20 furosemide 40 mg tablet 40 mg PO QAM tablet 10/20/19 07/01/20 Allergies Allergy/AdvReac Type Severity Reaction Status Date / Time oxycodone [OxyContin] Allergy Unknown Hallucinati Verified 12/29/20 11:03 ng Sulfa (Sulfonamide Allergy Unknown Rash Verified 12/29/20 11:03 Antibiotics) Review of Systems Review of Systems: All systems reviewed & are unremarkable except as noted in HPI and below Constitutional: Constitutional: Reports no additional constitutional complaints, Denies chills, Reports fatigue, Denies fever(s), Denies headache(s) and Reports weakness Eyes: Eyes: Reports no additional eye complaints and Denies change in vision ENT: Denies headache(s) and Denies sore throat Cardiovascular: Cardiovascular: Denies chest pain and Denies dyspnea Respiratory: Respiratory: Denies cough and Reports dyspnea Gastrointestinal: Gastrointestinal: Denies abdominal pain, Reports constipation, Denies diarrhea and Denies vomiting Genitourinary: Genitourinary: Denies dysuria and Denies urinary frequency Musculoskeletal: Musculoskeletal: Denies deformity, Denies arthralgias, Denies joint swelling and Denies numbness Integumentary/Breasts: Skin/Breast: Denies rash and Denies wounds Neurologic: Denies headache(s), Denies focal weakness and Denies numbness Psychiatric: Psychiatric: Reports no additional psychiatric complaints Endocrine: Endocrine: Reports no additional endocrine complaints Hematologic/Lymphatic: Hematologic/Lymphatic: Reports no additional hematologic/lymphatic complaints Allergic/Immunologic: Allergic/Immunologic: Reports no additional allergic/immunologic complaints [facility] Past Medical History Medical History (Updated 12/29/20 @ 13:17 by Isiah Wilder MD) AAA (abdominal aortic aneurysm) Atrial fibrillation Bladder cancer CAD (coronary artery disease) Cardiac defibrillator in place CHF (congestive heart failure) CKD (chronic kidney disease), stage III COPD (chronic obstructive pulmonary disease) Erectile dysfunction REESE (generalized anxiety disorder) Gout High cholesterol Hypertension Myocardial infarction x3 KIARRA (obstructive sleep apnea) Uses CPAP Pacemaker Peripheral neuropathy PVD (peripheral vascular disease) Surgical History Surgical History (Updated 07/05/20 @ 07:24 by Chip Duarte MD) AICD (automatic cardiov
[2020-12-29] MEDS: PANTOPRAZOLE SODIUM IV 40 MG VIAL IV PUSH ×2 (14:28→21:59)
[2020-12-29] MEDS: FUROSEMIDE INJ 40 MG/4 ML VIAL IV PUSH ×2 (14:28→21:59)
--- NOTE | 2020-12-29 15:00 | ADMGEN ---
This patient, Jovan Rodas, was admitted to Medical Room 256-01. Patient/family oriented to hospital policies and general routines including ID bracelet, bed and alarms, visiting hours, pain management, procedures, bathroom and other care routines, personal items, smoking policy, room service/diet, and visiting hours. Information on how to activate the Rapid Response Team has been discussed. Patient/Family are encouraged to report perceived risks to care and to ask questions if they do not understand what they are told or what they should do.
[2020-12-29] MEDS: SODIUM CHLORIDE 0.9% IV 250 ML 30 ML IV CONT (18:21)
--- NOTE | 2020-12-29 21:38 | PM.IMHP ---
H&P: HPI History of Present Illness Date/Time: 12/29/20 21:38 this is a 80-year-old male patient who has a history of having a TAVR and paroxysmal atrial fibrillation and is on Eliquis as well as aspirin. The patient has a application lead with the [facility] and [place]. The patient also has a history of congestive heart failure I did find a note from January of last year from his application lead Dr. Prashanth Koch who noted that the patient had an echo performed early 2019 and was read as moderately decreased left ventricular systolic function and normally functioning bioprosthetic aortic valve and mild mitral and tricuspid insufficiency. The patient has a AICD which he has had for several years. The patient was concerned about having it replaced. I believe he told me he had it for 7 years. The tells me that he has seen Dr. Yang who was going to get the patient set up with a application lead here at [facility]. The patient has not yet seen a application lead here. The patient has been having a history of anemia and gradually progressively decreasing his hemoglobin. There is a note in the patient's chart where the patient has all the surgeon Dr. Mckinney here who performed an EGD and colonoscopy. The patient had repair of anterior perforation of a duodenal bulb ulcer at that time. He was also found to have gastritis, diverticulosis without perforation or abscess without bleeding. Cecal polyp removed. The patient's stated that they were going to go shopping and go out to eat but the patient became too short of breath. The patient stated that he is short of breath with exertion and can only walk about 5 ft without getting short of breath. The patient has not been back to see his application lead. The patient has been fatigue and weak for the last 2 weeks. The patient was scheduled to have an echo and a CT of his abdomen tomorrow. The ER doctor stated that the patient had a Hemoccult-positive stool. GI has been consulted. Cardiology has been consulted as well for congestive heart failure. I did order unit packed red blood cells for hemoglobin of 6.6. The patient was ordered IV Lasix for complaints of shortness of breath. The patient's chest x-ray was read as cardiomegaly, congestion and possible mild pulmonary edema. I did call the and update her about the plan Of care. The patient is being admitted to inpatient services on the date of service of 12/29/2020. Chief Complaint: yao Review of Systems Review of Systems: All systems reviewed & are unremarkable except as noted in HPI and below Constitutional: Constitutional: Reports as per HPI and Reports no additional constitutional complaints Eyes: Eyes: Reports as per HPI and Reports no additional eye complaints ENT: Reports system reviewed and no additional complaints, except as documented and Reports Normal hearing present Cardiovascular: Cardiovascular: Reports no additional cardiovascular complaints Respiratory: Respiratory: Reports no additional respiratory complaints and Reports no additional respiratory complaints Gastrointestinal: Gastrointestinal: Reports as per HPI and Reports no additional gastrointestinal complaints Musculoskeletal: Musculoskeletal: Reports no additional musculoskeletal complaints Integumentary/Breasts: Skin/Breast: Reports system reviewed and no additional complaints, except as docu and Reports as per HPI Neurologic: Reports system reviewed and no additional complaints, except as documented, Reports as per HPI and Reports Normal hearing present Psychiatric: Psychiatric: Reports no additional psychiatric complaints and Reports as per HPI Endocrine: Endocrine: Reports no additional endocrine complaints Hematologic/Lymphatic: Hematologic/Lymphatic: Reports no additional hematologic/lymphatic complaints Allergic/Immunologic: Allergic/Immunologic: Reports no additional allergic/immunologic complaints [facility] Past Medical History Medical History
[2020-12-29] MEDS: PREGABALIN (*CRX) 50 MG CAPSULE 100 MG PO (22:11)
[2020-12-29] MEDS: traZODone HCL 50 MG TABLET PO (22:12)
[2020-12-29] MEDS: carvediloL 12.5 MG TABLET PO (22:18)
[2020-12-30] VITALS (9 sets, daily range): BP systolic 93–134; BP diastolic 50–74; PULSE 66–70; RESP 15–20; TEMP 36.2–36.6; O2SAT 92–99
--- NOTE | 2020-12-30 | ECHO_ITS ---
Patient Info Name: Jovan Rodas Age: 80 years : 1940 Gender: Male Ht: 68 in Wt: 191 lbs BSA: 2.06 m2 HR: 70 bpm BP: 109 / 54 mmHg Heart Rhythm: Paced Technical Quality: Good Exam Date: 12/30/2020 9:36 AM Exam Location: [facility] Pulmonary Exam Room: 256 Patient Status: Inpatient Admit Date: 12/29/2020 Staff Ordering Physician: Gely Cartwright NP National Coverage Specialist: Shila Salgado RDCS Attending Provider: Stacie Aviles MD Referring Physician: Chay BENAVIDES; Exam Type: CA echo doppler color flow Study Info Indications - CHF Complete two-dimensional, color flow and Doppler transthoracic echocardiogram is performed. Summary 1. Complete two-dimensional, color flow and Doppler transthoracic echocardiogram is performed. 2. Left ventricular chamber dimension is mildly enlarged. 3. Left ventricular systolic function is moderately reduced, estimated at 35-40%. 4. The inferior segment is akinetic. 5. Right ventricular chamber dimension is normal. 6. Linear artifact in right ventricle suggestive of catheter(s), pacemaker lead(s), or ICD lead(s). 7. Left atrial chamber dimension is moderately enlarged. 8. There is no regurgitation of the TAVR aortic valve. 9. Modest transvalvular gradient of the TAVR prosthesis, appears normal. 10. There is mild mitral valve regurgitation. Left Ventricle Left ventricular chamber dimension is mildly enlarged. Left ventricular systolic function is moderately reduced, estimated at 35-40%. The left ventricular diastolic function is indeterminate. The inferior segment is akinetic. Right Ventricle Right ventricular chamber dimension is normal. Linear artifact in right ventricle suggestive of catheter(s), pacemaker lead(s), or ICD lead(s). Left Atria Left atrial chamber dimension is moderately enlarged. Right Atria Right atrial chamber dimension is mildly enlarged. Aortic Valve There is no regurgitation of the TAVR aortic valve. Modest transvalvular gradient of the TAVR prosthesis, appears normal. Pulmonic Valve The pulmonic valve is not well visualized. Mitral Valve The mitral valve has normal leaflets. There is mild mitral valve regurgitation. Tricuspid Valve The tricuspid valve leaflets are normal. There is mild tricuspid valve regurgitation. Pericardium/Pleural The pericardium appears normal. Aorta The aortic root size at the sinus of Valsalva is normal. Left Ventricular Outflow Tract Name Value Normal LVOT 2D LVOT Diameter 2.1 cm LVOT Doppler LVOT Peak Velocity 110 cm/s LVOT Peak Gradient 5 mmHg LVOT Mean Gradient 3 mmHg LVOT VTI 22 cm LVOT VTI/AV VTI Ratio 0.8 LVOT Stroke Volume 74 ml LVOT CO 15.3 l/min LVOT CI 7.4 l/min/m2 Pulmonic Valve Name Value Normal
[2020-12-30 00:49] LABS: Hematocrit 24.3 % (42.0-52.0); Hemoglobin 7.6 g/dL (14.0-18.0)
[2020-12-30 06:29] LABS: Basophils Percent Auto 0.5 % (0.2-1.2); Eosinophils Absolute Auto 0.1 K/mm3 (0-0.3); Eosinophils Percent Auto 2.5 % (0-4.4); Hemoglobin 7.7 g/dL (14.0-18.0); Immature Granulocyte Absolute 0.02 K/mm3 (0.00-0.031); Immature Granulocyte Percent A 0.4 % (0-0.5); Lymphocytes Absolute Auto 0.99 K/mm3 (0.9-3.2); Lymphocytes Percent Auto 17.7 % (18.3-44.2); Mean Corpuscular HGB Conc 30.8 g/dl (32-36); Mean Corpuscular Volume 97.3 fl (80-100); Mean Platelet Volume 10.5 fl (7.4-10.4); Monocytes Absolute Auto 0.7 K/mm3 (0.1-0.6); Monocytes Percent Auto 12.5 % (2.6-8.5); Neutrophils Absolute Auto 3.7 K/mm3 (1.3-6.7); Neutrophils Percent Auto 66.4 % (45.5-73.1); Platelet Count Result 102 k/mm3 (150-375); Red Blood Count 2.57 M/mm3 (4.6-6.20); Red Cell Distribution Width 18.7 % (11.5-14.5); White Blood Count 5.6 K/mm3 (4.5-10.0)
[2020-12-30 06:39] LABS: Magnesium 2.2 mg/dL (1.6-2.3)
[2020-12-30 07:59] LABS: Free T4 Free Thyroxine Reflex 0.71 ng/dL (0.78-2.19)
--- NOTE | 2020-12-30 08:12 | WPDGICN ---
Assessment and Plan Assessment and plan (1) GI bleeding: Qualifiers: GI bleed type/associated pathology: melena Qualified Code(s): K92.1 - Melena Code(s): K92.2 - Gastrointestinal hemorrhage, unspecified Status: Acute Assessment and Plan: EGD few months ago showed gastritis will proceed with urgent EGD and assess if more bleeding (patient report dark stools but also using iron) continue with iv protonix for now (2) Acute on chronic blood loss anemia: Code(s): D62 - Acute posthemorrhagic anemia Status: Acute Assessment and Plan: egd now, more recommendations after scope he already had colonoscopy just few months ago by Dr Cameron. (3) CHF (congestive heart failure): Code(s): I50.9 - Heart failure, unspecified Status: Acute Assessment and Plan: managed by cardiology (4) AAA (abdominal aortic aneurysm): Qualifiers: Presence of rupture: without rupture Qualified Code(s): I71.4 - Abdominal aortic aneurysm, without rupture Code(s): I71.4 - Abdominal aortic aneurysm, without rupture Status: Acute Assessment and Plan: stable, cardiology on board (5) CAD (coronary artery disease): Code(s): I25.10 - Atherosclerotic heart disease of [place] coronary artery without angina pectoris Status: Acute Assessment and Plan: on medical therapy (6) Atrial fibrillation: Qualifiers: Atrial fibrillation type: paroxysmal Qualified Code(s): I48.0 - Paroxysmal atrial fibrillation Code(s): I48.91 - Unspecified atrial fibrillation Status: Acute GI Consult Note Consult date/time: 12/30/20 08:12 Reason for consult: gib, melena HPI: Jovan Rodas is a 80 year old male with history of CAD, CHF s/p pacemaker/AICD, s/p TAVR, paroxysmal atrial fibrillation on Eliquis and aspirin, AAA and previous history of anemia with EGD and colonoscopy 06/[address] Mckinney that showed erosive gastritis and colon diverticulosis. He came here with gradually worsening dyspnea for a period of time, he says that is taking iron and his stool has been dark for a while. He was admitted to the hospital, evaluated by cardiology but also noted hb 6.6 (few months ago mid 9s). He received blood transfusion and feeling better. CT scan a/p reviewed, showed stable size to saccular suprarenal and more fusiform infrarenal abdominal aortic aneurysms up to 5.9 cm, small scattered groundglass density opacities, scattered colonic diverticulosis. Review of Systems Constitutional: Constitutional: Reports weakness Eyes: Eyes: Reports no additional eye complaints ENT: Reports Normal hearing present Cardiovascular: Cardiovascular: Denies chest pain Respiratory: Respiratory: Reports dyspnea on exertion Gastrointestinal: Gastrointestinal: Reports melena and Denies nausea Genitourinary: Genitourinary: Denies dysuria Musculoskeletal: Musculoskeletal: Denies neck pain Integumentary/Breasts: Skin/Breast: Denies dry skin Neurologic: Reports system reviewed and no additional complaints, except as documented Psychiatric: Psychiatric: Reports no additional psychiatric complaints [facility] Past Medical History Medical History (Updated 12/30/20 @ 12:32 by Jhonatan Strickland MD) AAA (abdominal aortic aneurysm) Acute on chronic blood loss anemia Atrial fibrillation Bladder cancer CAD (coronary artery disease) Cardiac defibrillator in place CHF (congestive heart failure) CKD (chronic kidney disease), stage III COPD (chronic obstructive pulmonary disease) Erectile dysfunction REESE (generalized anxiety disorder) Gout High cholesterol Hypertension Myocardial infarction x3 KIARRA (obstructive sleep apnea) Patient stated that he does not Use CPAP Pacemaker Peripheral neuropathy PVD (peripheral vascular disease) Surgical History Surgical History (Updated 12/29/20 @ 21:48 by Gely Cartwright NP) AICD (automatic cardioverter/defibril
--- NOTE | 2020-12-30 08:13 | PM.CNCAR ---
Assessment and Plan Additional Plan This is a 80-year-old man with: Obvious extensive history of coronary disease valvular heart disease and previous defibrillator implantation. He enters the hospital complaining of shortness of breath which appears to be the result of symptomatic anemia as there is no physical exam evidence of decompensated congestive heart failure at this time. Based on his history 1 would presume that he has and significant ischemic cardiomyopathy however that is an issue the patient wishes to dispute. Obviously we have no records of any of his previous extensive care. At this time I do not believe I can recommend anything else other than continuing his home medical regimen which consists of aspirin, atorvastatin, carvedilol, furosemide and a potassium supplement. It is interesting/curious that he is not on an ANGELA-inhibitor or ARB. His records should be requested from [facility] so we have the details of his bypass operation, previous interventions, TAVR and the identity of his ICD. The patient is very concerned about the fact that his ICD has not been checked for some time since he has not gone to his upset operator for an appointment. It is obviously impossible for us to provide that unless we know what sort of device he has. We will tried was sample some of those records and arrange for follow-up in our office. I did make it clear to this gentleman that we do not have electrophysiology services here at [facility] and if and when his device needs to be changed because of battery at [facility] that will happen at another institution. Jarett Yousif MD [facility] History of Present Illness History of Present Illness Consult date/time: 12/30/20 08:13 Consult reason: congestive heart failure Reason For Visit: anemia,chf Narrative: This is a 80-year-old man I am seeing at the request of the hospitalist today the stated reason for the consult is congestive heart failure. The patient came to the hospital yesterday and was admitted to the emergency room with complaints of dyspnea. Apparently the dyspnea as a complaint this been gradually worsening for a period of time. The patient is a rather poor historian regarding the details of his symptoms and admits to having a very poor memory for short-term events. In any event he was evaluated in the emergency room and admitted to the hospital. He was found to be profoundly anemic with a hemoglobin level is 6.6 g. He has received transfusion of some packed red cells and in that setting is being seen in consultation. He is not really reporting symptoms of accumulating edema orthopnea or PND or chest pain. His chest x-ray shows a somewhat enlarged cardiac silhouette, changes compatible with previous cardiothoracic surgery and presence of a biventricular ICD. He apparently has a long history of ischemic heart disease and valvular heart disease and has previously received all of his care up in [facility] by the [facility]. None of those records are available to me at the time of this consultation. The patient again is a somewhat poor historian but he states that his coronary disease history dates back to 23 years ago when he suffered a myocardial infarction and underwent multivessel bypass grafting in [place]. In the years that follow that he has had 2 percutaneous interventional procedures done. Obviously he can't tell me the details of any of that and again we do not have any of those records. In more recent years he states he had a transcatheter aortic valve replacement also in [place] and he states about 6 years ago in something like 2015 he had a defibrillator implanted by the Cardiology group up there as well. We have no information as to the identity of that device. He states his upset operator up there was a Dr. Prashanth Koch. He has not seen him in a while because he states it was inconvenient to be driving up to [place] for appointme
[2020-12-30] MEDS: allopurinoL 100 MG TABLET PO (08:21)
[2020-12-30] MEDS: ATORVASTATIN 40 MG TABLET PO (08:21)
[2020-12-30] MEDS: POTASSIUM CHLORIDE 20 MEQ TABLET.ER PO (08:21)
[2020-12-30] MEDS: FINASTERIDE 5 MG TABLET PO (08:22)
[2020-12-30] MEDS: FERROUS SULFATE 324 MG TABLET PO (08:22)
[2020-12-30] MEDS: carvediloL 12.5 MG TABLET PO ×2 (08:22→20:18)
[2020-12-30] MEDS: traZODone HCL 50 MG TABLET PO ×2 (08:23→16:42)
[2020-12-30] MEDS: PREGABALIN (*CRX) 50 MG CAPSULE 100 MG PO ×2 (08:23→16:41)
[2020-12-30] MEDS: FUROSEMIDE INJ 40 MG/4 ML VIAL IV PUSH ×2 (08:23→20:20)
[2020-12-30] MEDS: PANTOPRAZOLE SODIUM IV 40 MG VIAL IV PUSH (08:23)
[2020-12-30] MEDS: TAMSULOSIN HCL 0.4 MG CAPSULE PO (08:23)
[2020-12-30] MEDS: traMADol HCL (*CRX) 50 MG TABLET PO ×2 (08:41→16:41)
--- NOTE | 2020-12-30 09:49 | SUR.PREOP ---
DR LAWSON STATED NO ABX NEEDED FOR THIS PT HAVING EGD THAT HAS HAD AN AORTIC VALVE REPLACEMENT
[2020-12-30 10:21] LABS: Hematocrit 25.6 % (42.0-52.0); Hemoglobin 7.9 g/dL (14.0-18.0)
--- NOTE | 2020-12-30 11:10 | PC.NURSE ---
To GI lab via stretcher with GI lab staff.
[2020-12-30] MEDS: LACTATED RINGERS 1,000 ML 150 ML IV CONT (11:28)
--- NOTE | 2020-12-30 12:27 | WPDANESEPPF ---
Anes - Initial Pre Proc Eval Procedure: Operation Date: 12/30/20 12:00 Proposed Procedures p Esophagogastroduodenoscopy - Jhonatan Strickland MD Date/Time: 12/30/20 12:27 Surgeon: Stacie Aviles MD Pre Op Diagnosis: anemia,chf Patient Data Age: 80 Gender: M Height: 5 ft 8 in Weight: 87 kg Last Vital Signs Temp 36.4 C 12/30/20 11:22 Pulse 67 12/30/20 11:22 Resp 20 12/30/20 11:22 BP 109/74 12/30/20 11:22 Pulse Ox 97 12/30/20 11:22 Allergies Allergy/AdvReac Type Severity Reaction Status Date / Time oxycodone [OxyContin] Allergy Unknown Hallucinati Verified 12/29/20 15:29 ng Sulfa (Sulfonamide Allergy Unknown Rash Verified 12/29/20 15:29 Antibiotics) Home Medications Medication Instructions Recorded Confirmed Type apixaban 5 mg tablet 5 mg PO BID #180 tablet 07/31/19 12/29/20 Rx allopurinol 100 mg tablet 100 mg PO DAILY 08/17/19 12/29/20 History aspirin 81 mg tablet,delayed 81 mg PO DAILY 08/17/19 12/29/20 History release atorvastatin 40 mg tablet 40 mg PO DAILY 08/17/19 12/29/20 History carvedilol 12.5 mg tablet 12.5 mg PO Q12H 08/17/19 12/29/20 History pregabalin 100 mg capsule 100 mg PO TID 08/17/19 12/29/20 History tamsulosin 0.4 mg capsule 0.4 mg PO DAILY 08/17/19 12/29/20 History finasteride 5 mg tablet 5 mg PO DAILY tablet 10/20/19 12/29/20 History furosemide 20 mg tablet 20 mg PO QPM tablet 10/20/19 12/29/20 History furosemide 40 mg tablet 40 mg PO QAM tablet 10/20/19 12/29/20 History tramadol 50 mg tablet 50 mg PO Q6H #90 each 01/04/20 12/29/20 Rx trazodone 50 mg tablet 50 mg PO TID #90 tablet 01/08/20 12/29/20 Rx potassium chloride 20 mEq 40 meq PO DAILY #180 tablet 02/01/20 12/29/20 Rx tablet,extended release pantoprazole [Protonix] 40 mg PO QAM 56 Days #56 tablet 07/05/20 12/29/20 Rx Iron (ferrous sulfate) 325 mg PO DAILY 12/29/20 12/29/20 History Laboratory Tests 12/29/20 12/29/20 12/30/20 10:59 12:04 00:34 WBC RBC Hgb 7.6 g/dL L g/dL (14.0-18.0) Hct 24.3 % L % (42.0-52.0) MCV MCH MCHC RDW Plt Count MPV Immature Gran % (Auto) Neut % (Auto) Lymph % (Auto) [place] % (Auto) Eos % (Auto) Baso % (Auto) Lymph # (Auto) [place] # (Auto) Eos # (Auto) Baso # (Auto) Abs Immat Gran (auto) Absolute Neuts (auto) Absolute Nucleated RBC Nucleated RBC % Absolute Retic 0.09 B/L L B/L (32.2-175.7) Percent Retic 4.24 % % (0.7-4.3) Immature Retic Fraction 19.8 % H % (3.0-15.9) Retic Hgb Content 20.7 pg L pg (28.2-35.7) Magnesium TSH (Reflex) Free T4 Blood Type AB Positive Antibody Screen Negative Crossmatch See Detail 12/30/20 12/30/20 12/30/20 06:22 06:22 06:22 WBC 5.6 K/mm3 K/mm3 (4.5-10.0) RBC 2.57 M/mm3 L M/mm3 (4.6-6.20) Hgb 7.7 g/dL L g/dL (14.0-18.0) Hct 25.0 % L % (42.0-52.0) MCV 97.3 fl D fl (80-100) MCH 30.0 pg D pg (26-34) MCHC 30.8 g/dl L g/dl (32-36) RDW 18.7 % H % (11.5-14.5) Plt Count 102 k/mm3 L k/mm3 (150-375) MPV 10.5 fl H fl (7.4-10.4) Immature Gran % (Auto) 0.4 % % (0-0.5) Neut % (Auto) 66.4 % % (45.5-73.1) Lymph % (Auto) 17.7 % L % (18.3-44.2) [place] % (Auto) 12.5 % H % (2.6-8.5) Eos % (Auto) 2.5 % % (0-4.4) Baso % (Auto) 0.5 % % (0.2-1.2) Lymph # (Auto) 0.99 K/mm3 K/mm3 (0.9-3.2) [place] # (Auto) 0.7 K/mm3 H K/mm3 (0.1-0.6) Eos # (Auto) 0.1 K/mm3 K/mm3 (0-0.3) Baso # (Auto) 0.0 K/mm3 K/mm3 (0.0-0.
--- NOTE | 2020-12-30 13:30 | PC.NURSE ---
Received patient back from GI lab. Settled in room. No distress or c/o pain noted.
--- NOTE | 2020-12-30 13:37 | PM.IMPN ---
Progress Note: A&P Assessment and Plan (1) Anemia: Code(s): D64.9 - Anemia, unspecified Status: Acute Assessment and Plan: Likely 2/2 A/C Hgb 6.6-->7.7 today S/p 1 unit of PRBCs Steadily decline in H/H over the last year Continue with iron supp Endoscopies performed by Dr. Mciknney as mentioned above GI following, recommendations appreciated EGD with no obvious sign of bleeding Hematology consult pending Ok to resume apixaban and ASA per GI Plan for SB capsule endoscopy o/p (2) GI bleeding: Qualifiers: GI bleed type/associated pathology: melena Qualified Code(s): K92.1 - Melena Code(s): K92.2 - Gastrointestinal hemorrhage, unspecified Status: Acute Assessment and Plan: R/p S/p IV Protonix Resume apixaban and aspirin (3) CHF (congestive heart failure): Code(s): I50.9 - Heart failure, unspecified Status: Acute Assessment and Plan: Followed by cardiology in [place],Dr. Yang Cardiology following, recommendations appreciated CXR showed cardiomegaly and some mild pulmonary edema ECHO results pending Continue with medical management (4) REESE (generalized anxiety disorder): Code(s): F41.1 - Generalized anxiety disorder Status: Acute Assessment and Plan: No home meds (5) Gout: Code(s): M10.9 - Gout, unspecified Status: Chronic Assessment and Plan: Continue with allopurinol (6) Hypertension: Code(s): I10 - Essential (primary) hypertension Status: Chronic Assessment and Plan: Continue with Coreg Monitor (7) CKD (chronic kidney disease), stage III: Code(s): N18.3 - Chronic kidney disease, stage 3 (moderate) Status: Chronic Assessment and Plan: Cr 2.0 Followed by nephrology o/p Avoid nephrotoxins Renally dose all meds Monitor (8) Atrial fibrillation: Qualifiers: Atrial fibrillation type: paroxysmal Qualified Code(s): I48.0 - Paroxysmal atrial fibrillation Code(s): I48.91 - Unspecified atrial fibrillation Status: Acute Assessment and Plan: Resume Eliquis and aspirin Continue Coreg Monitor (9) CAD (coronary artery disease): Code(s): I25.10 - Atherosclerotic heart disease of [place] coronary artery without angina pectoris Status: Acute Assessment and Plan: Hx 4 vessel disease s/p CABG x2 stents Followed by Dr. Yang Subjective Date/time seen: 12/30/20 13:37 Pt seen and evaluated; pt is having ECHO; denies any CP, SOB, N/V/D or abdominal pain Review of Systems Review of Systems: All systems reviewed & are unremarkable except as noted in HPI and below Exam Const: General: no acute distress, alert and awake Orientation/consciousness: patient oriented x3 HENMT: Head: normocephalic and atraumatic Ears: hearing grossly normal bilaterally and external ears normal Face and sinus: face symmetric Mouth: Yes Normal oral and palatal mucosa present Eyes: Pupils: Equal, round and reactive pupils present EOM: EOMs intact bilaterally Neck: Neck: full ROM, trachea midline and no JVD Thyroid: thyroid normal Chest: Chest palpation & inspection: normal inspection of the chest Resp: Effort & Inspection: normal respiratory effort Auscultation: clear to auscultation bilaterally Cardio: Jugular venous distension: no JVD Rate: regular rate Rhythm: regular rhythm Heart sounds: S1 normal heart sound present and S2 normal heart sound present GI: Inspection: normal to inspection GI Palp: Yes Soft to palpation Percussion: Yes normal to percussion Auscultation: normal bowel sounds : General: Yes no CVA tenderness Back/Spine/Pelvis: Back: no CVA tenderness Skin: General skin exam: normal color Rashes: no rashes Neuro: General: patient oriented x3 and CN's II-XI intact bilaterally Cranial nerves: Yes Equal, round and reactive pupils present Speech: normal speech Psych: Appearance: grossly normal Affect: edwin
--- NOTE | 2020-12-30 13:57 | PC.NURSE ---
Patient states he wants to go home and have a big steak . Discussed anemia with patient and informed him that he is not discharged at this time. Patient states he wants to go home and wants the doctor called. Called Stefania [facility]CH[facility] and informed her of patient's request. Per Stefania, she states she is keeping the patient again tonight and will recheck his H/H in the morning.
--- NOTE | 2020-12-30 16:34 | PDONCCN ---
HPI - Date of Consult Date/Time: 12/30/20 16:34 Requesting Physician: Stacie Aviles MD Primary Care Provider: Ruddy Yang MD - Consult Narrative Reason for consult: Multifactorial anemia Narrative: Jovan Rodas is a 80 year old male with history of atrial fibrillation and has been on Eliquis along with aspirin. Patient also has a history of coronary artery disease status post coronary artery bypass as well as chronic kidney stage 3 disease. Patient has cardiac defibrillator in place. Patient came into the hospital with increasing shortness of breath and found to have hemoglobin of 6.6. He has been having black stool for last 6 months duration and had EGD and colonoscopy done in June [address] Mckinney that showed erosive gastritis and diverticulitis. He has been taking oral iron at least once a day. His weight and appetite stable. He received 1 unit of packed red blood cell on December 30. Patient had EGD done on December 30 as well that showed gastritis without any evidence of active bleeding. Review of Systems - Review of Systems All systems reviewed & are unremarkable except as noted in HPI and bel - Neurologic Reports system reviewed and no additional complaints, except as documented, Reports hearing normal, Reports weakness, Denies headache(s), Denies focal weakness, Denies numbness [facility] Medical History: Medical History (Last Updated 12/30/20 @ 12:32 by Jhonatan Strickland MD) AAA (abdominal aortic aneurysm) Acute on chronic blood loss anemia Atrial fibrillation Bladder cancer CAD (coronary artery disease) Cardiac defibrillator in place CHF (congestive heart failure) CKD (chronic kidney disease), stage III COPD (chronic obstructive pulmonary disease) Erectile dysfunction REESE (generalized anxiety disorder) Gout High cholesterol Hypertension Myocardial infarction x3 KIARRA (obstructive sleep apnea) Patient stated that he does not Use CPAP Pacemaker Peripheral neuropathy PVD (peripheral vascular disease) Surgical History: Surgical History (Last Reviewed 12/30/20 @ 12:31 by Lai Serrato MD) AICD (automatic cardioverter/defibrillator) present History of aortic valve repair History of back surgery History of bladder surgery TURB procedure 2009 History of cholecystectomy History of coronary artery stent placement 2 stents History of heart valve replacement History of hernia repair incisional History of tonsillectomy and adenoidectomy History of transcatheter aortic valve replacement (TAVR) S/P CABG (coronary artery bypass graft) Four vessel CABG Status post placement of cardiac pacemaker Family History: Family History (Last Reviewed 12/30/20 @ 12:31 by Lai Serrato MD) Father Family history of aortic aneurysm Acute myocardial infarction Mother Parkinsons disease - Social History Social History: Social History (Last Reviewed 12/30/20 @ 12:31 by Lai Serrato MD) Gender Identity: Gender identity (if verbalized by the patient): Male Alcohol Use: Alcohol intake: current Drinks per week: 2 Substance Use: Substance use: never Substance use type: does not use Others: Spiritual care concerns: No Smoking Status: Smoking status: Former smoker Smoking Pack-years: Smoking packs per day: 2 Smoking cigarettes per day: 40.0 Years smoked: 45 Smoking pack-years: 90.00 Meds Home Medications Medication Instructions Recorded Confirmed Type apixaban 5 mg tablet 5 mg PO BID #180 tablet 07/31/19 12/29/20 Rx allopurinol 100 mg tablet 100 mg PO DAILY 08/17/19 12/29/20 History aspirin 81 mg tablet,delayed 81 mg PO DAILY 08/17/19 12/29/20 History release atorvastatin 40 mg tablet 40 mg PO DAILY 08/17/19 12/29/20 History carvedilol 12.5 mg tablet 12.5 mg PO Q12H 08/17/19 12/29/20 History pregabalin 100 mg capsule 100 mg PO TID 08/17/19 12/29/20 History tamsulosin 0.
[2020-12-30 16:59] LABS: Hematocrit 27.4 % (42.0-52.0); Hemoglobin 8.5 g/dL (14.0-18.0)
[2020-12-30] MEDS: EPOETIN ALFA-EPBX 20,000 UNITS/ML VIAL 20000 UNITS SUB-Q (17:28)
[2020-12-30] MEDS: IRON SUCROSE COMPLEX 500 MG in SODIUM CHLORIDE 0.9% IV 250 ML 78.57 MG IVPB (17:29)
[2020-12-31 06:08] VITALS: BP 138/63; PULSE 71; RESP 16; TEMP 36.1; O2SAT 95
[2020-12-31] MEDS: PANTOPRAZOLE 40 MG TABLET PO (08:45)
[2020-12-31 08:46] VITALS: PULSE 76
[2020-12-31] MEDS: FINASTERIDE 5 MG TABLET PO (08:46)
[2020-12-31] MEDS: traZODone HCL 50 MG TABLET PO (08:46)
[2020-12-31] MEDS: TAMSULOSIN HCL 0.4 MG CAPSULE PO (08:46)
[2020-12-31] MEDS: PREGABALIN (*CRX) 50 MG CAPSULE 100 MG PO (08:46)
[2020-12-31] MEDS: carvediloL 12.5 MG TABLET PO (08:46)
[2020-12-31] MEDS: allopurinoL 100 MG TABLET PO (08:46)
[2020-12-31] MEDS: POTASSIUM CHLORIDE 20 MEQ TABLET.ER PO (08:46)
[2020-12-31] MEDS: FERROUS SULFATE 324 MG TABLET PO (08:47)
[2020-12-31] MEDS: ATORVASTATIN 40 MG TABLET PO (08:47)
[2020-12-31] MEDS: FUROSEMIDE INJ 40 MG/4 ML VIAL IV PUSH (08:47)
[2020-12-31] MEDS: traMADol HCL (*CRX) 50 MG TABLET PO (08:48)
--- NOTE | 2020-12-31 11:13 | WPDANESPN ---
Anes - Prog Note Post-Op Date/Time: 12/31/20 11:13 Cardiovascular status: normal Respiratory status: normal Airway patency: baseline Mental status: baseline Post-Op hydration status: normal Vital Signs: Last Vital Signs Temp 36.1 C L 12/31/20 06:08 Pulse 76 12/31/20 08:46 Resp 16 12/31/20 06:08 BP 138/63 12/31/20 06:08 Pulse Ox 95 12/31/20 06:08 Pain Score (VAS): 0 I/O: Intake & Output 12/30/20 12/31/20 12/31/20 23:59 07:59 15:59 Intake Total 475 200 300 Output Total 200 Balance 475 0 300 Laboratory Tests 12/30/20 16:37 12/29/20 11:10 12/30/20 16:37 Hgb 8.5 L Hct 27.4 L Post-procedural complaints: none Patient Feedback: Patient satisfied with anesthetic care.
--- NOTE | 2020-12-31 14:18 | PM.DS ---
DS: Admitting Diagnosis Admitting Diagnosis Admitting Diagnosis: anemia DS: Discharge Diagnosis Discharge Diagnosis (1) Anemia: Code(s): D64.9 - Anemia, unspecified Status: Acute Assessment and Plan: Likely 2/2 A/C Hgb 6.6-->7.7 today S/p 1 unit of PRBCs Steadily decline in H/H over the last year Continue with iron supp Endoscopies performed by Dr. Mckinney as mentioned above GI following, recommendations appreciated EGD with no obvious sign of bleeding Hematology consult pending Ok to resume apixaban and ASA per GI Plan for SB capsule endoscopy o/p (2) GI bleeding: Qualifiers: GI bleed type/associated pathology: melena Qualified Code(s): K92.1 - Melena Code(s): K92.2 - Gastrointestinal hemorrhage, unspecified Status: Acute Assessment and Plan: S/p IV Protonix Resume apixaban and aspirin (3) CHF (congestive heart failure): Code(s): I50.9 - Heart failure, unspecified Status: Acute Assessment and Plan: Followed by cardiology in [place],Dr. Yang Cardiology following, recommendations appreciated CXR showed cardiomegaly and some mild pulmonary edema ECHO-->reduced EF 35-40% Continue with medical management (4) REESE (generalized anxiety disorder): Code(s): F41.1 - Generalized anxiety disorder Status: Acute Assessment and Plan: No home meds (5) Gout: Code(s): M10.9 - Gout, unspecified Status: Chronic Assessment and Plan: Continue with allopurinol (6) Hypertension: Code(s): I10 - Essential (primary) hypertension Status: Chronic Assessment and Plan: Continue with Coreg Monitor (7) CKD (chronic kidney disease), stage III: Code(s): N18.3 - Chronic kidney disease, stage 3 (moderate) Status: Chronic Assessment and Plan: Cr 2.0 on 12/30 Followed by nephrology o/p Avoid nephrotoxins Renally dose all meds Monitor (8) Atrial fibrillation: Qualifiers: Atrial fibrillation type: paroxysmal Qualified Code(s): I48.0 - Paroxysmal atrial fibrillation Code(s): I48.91 - Unspecified atrial fibrillation Status: Acute Assessment and Plan: Resume Eliquis and aspirin Continue Coreg Monitor (9) CAD (coronary artery disease): Code(s): I25.10 - Atherosclerotic heart disease of [place] coronary artery without angina pectoris Status: Acute Assessment and Plan: Hx 4 vessel disease s/p CABG x2 stents Followed by Dr. Yang DS: Summary Hospital Course Hospital Course: 80 year old man admitted for anemia on chronic a/c with a steady decline over the past year. On admission, hemoglobin was noted to be 6.6 and was treated with 1 unit packed blood cells. He underwent endoscopies per Dr. Mckinney. Dr. Reynoso (GI) was consulted. He underwent endoscopy on 12/[address] Reynoso will follow outpatient for [facility] [place] and hematology workup. Dr. Samuels (Hematology) was also consulted. Dr. Samuels suspects that anemia is likely secondary to anemia of chronic kidney disease as well as iron deficiency of unclear etiology; or primary bone marrow disorder like myelodysplasia. He was treated with 500 mg of IV Venofer and Procrit 88428 units on 12/30. He will follow up out patient. The patient is stable and ready for discharge. Time Spent with Patient Time attestation: Total time spent providing and/or coordinating discharge services: Time spent: Greater than 30 minutes Exam Const: General: cooperative, healthy appearing, comfortable, no acute distress, well developed, alert, awake and Physically active Nutritional Appearance: average body habitus and well nourished Orientation/consciousness: oriented to person, oriented to place, oriented to time and patient oriented x3 Limitations: no limitations HENMT: Head: normal to inspection, No palpable skull fracture present, normocephalic and atraumatic Ears: hearing grossly normal bilatera
== END 2020-12-31 11:50 | disposition home or self-care (01) | DRG 378 ==
LOC: ANHED 13:17 → ANH2MED 14:29
PROVIDERS: Emergency Medicine; Internal Medicine Gastroenterology; Nurse Practitioner; Admitting Provider Hospitalist; Emergency Provider Emergency Medicine; PCP Internal Medicine; Visit Provider Hospitalist
PROC: 0DJ08ZZ Inspection of Upper Intestinal Tract, Via Natural or Artificial Opening Endoscopic (ICD-10-PCS; CPT 43235; principal; 2020-12-30 12:00)
DX: K92.1 Melena (principal); I13.0 Hypertensive heart and chronic kidney disease with heart failure and stage 1 through stage 4 chronic kidney disease, or unspecified chronic kidney disease; D63.1 Anemia in chronic kidney disease; D50.0 Iron deficiency anemia secondary to blood loss (chronic); I48.0 Paroxysmal atrial fibrillation; K29.70 Gastritis, unspecified, without bleeding; J44.9 Chronic obstructive pulmonary disease, unspecified; I25.10 Atherosclerotic heart disease of native coronary artery without angina pectoris; N18.30 Chronic kidney disease, stage 3 unspecified; I50.9 Heart failure, unspecified; M10.9 Gout, unspecified; F41.1 Generalized anxiety disorder; G47.33 Obstructive sleep apnea (adult) (pediatric); G62.9 Polyneuropathy, unspecified; I73.9 Peripheral vascular disease, unspecified; I71.4 Abdominal aortic aneurysm, without rupture; Z79.01 Long term (current) use of anticoagulants; Z79.82 Long term (current) use of aspirin; Z79.899 Other long term (current) drug therapy; Z85.51 Personal history of malignant neoplasm of bladder; Z87.891 Personal history of nicotine dependence; Z95.1 Presence of aortocoronary bypass graft; Z95.5 Presence of coronary angioplasty implant and graft; Z95.810 Presence of automatic (implantable) cardiac defibrillator
CPT/HCPCS: 36415; 36430; 71046; 71250; 74176; 80048; 83540; 83550; 83735; 83880; 84439; 84443; 85014; 85018; 85025; 85046; 85610; 85730; 86850; 86900; 86901; 86923; 88305; 93005; 93306; 99285; A9270; C9113; J1756; J1940; J2001; J2704; J7050; J7120; P9016; Q5106

== ENCOUNTER 2021-01-09 11:51 | Outpatient (CLI) | payer MEDICARE, SELFPAY ==
[2021-01-09 12:13] LABS: Basophils Percent Auto 0.4 % (0.2-1.2); Eosinophils Absolute Auto 0.1 K/mm3 (0-0.3); Hematocrit 28.4 % (42.0-52.0); Hemoglobin 8.8 g/dL (14.0-18.0); Immature Granulocyte Absolute 0.01 K/mm3 (0.00-0.031); Immature Granulocyte Percent A 0.2 % (0-0.5); Lymphocytes Absolute Auto 0.92 K/mm3 (0.9-3.2); Lymphocytes Percent Auto 18.9 % (18.3-44.2); Mean Corpuscular Hemoglobin 31.1 pg (26-34); Mean Corpuscular Volume 100.4 fl (80-100); Mean Platelet Volume 10.7 fl (7.4-10.4); Monocytes Absolute Auto 0.8 K/mm3 (0.1-0.6); Neutrophils Absolute Auto 3.1 K/mm3 (1.3-6.7); Neutrophils Percent Auto 62.5 % (45.5-73.1); Platelet Count Result 101 k/mm3 (150-375); Red Blood Count 2.83 M/mm3 (4.6-6.20); Red Cell Distribution Width 21.4 % (11.5-14.5); White Blood Count 4.9 K/mm3 (4.5-10.0)
[2021-01-09 17:34] LABS: Iron 96 ug/dL (49-181)
[2021-01-09 17:44] LABS: Percent Iron Saturation 26 % (20-50)
[2021-01-09 17:47] LABS: Anion Gap 8 mmol/L (8-16); Blood Urea Nitrogen 33 mg/dL (9-20); Carbon Dioxide 30 mmol/L (22-30); Chloride 101 mmol/L (98-107); Estimated Glomerular Filt Rate 37; Glucose 117 mg/dL (75-110); Sodium 139 mmol/L (137-145)
[2021-01-09 21:13] LABS: Potassium 4.5 mmol/L (3.4-5.0)
== END 2021-01-09 11:52 | disposition home or self-care (01) ==
LOC: ANHLAB 11:53
PROVIDERS: PCP Internal Medicine; Visit Provider Internal Medicine Hematology & Oncology
DX: D64.9 Anemia, unspecified (principal)
CPT/HCPCS: 36415; 80048; 82607; 82728; 83540; 83550; 85025

== ENCOUNTER 2021-01-13 11:56 | Outpatient (CLI) | payer MEDICARE, SELFPAY ==
--- NOTE | ~2021-01-13 | CT_ITS ---
EXAMINATION: CT lumbar spine wo con DATE: 01/13/2021 13:10 INDICATION: Chronic low back pain. TECHNIQUE: Computed tomography (CT) of the lumbar spine was performed without intravenous contrast. A utomated exposure control and iterative reconstruction technique were employed. The dose-length produ ct was 801.21 mGy-cm. COMPARISON: Lumbar spine CT 02/17/2019 FINDINGS: There is a small left pleural effusion with pleural thickening. There are likely changes of open repair of abdominal aorta. There is an eccentric aneurysm of suprarenal aorta proximal to the r epair measuring up to 5.8 cm. 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 There is cortical thinning of the kidneys. Partially visualized are cysts in the kidneys. There is 14 degre es levoscoliosis of lumbar spine. Vertebral body heights are normal. There is severely decreased disc height from L1-L2 through L5-S1 with endplate remodeling. The following disc levels are specifically discussed: L1-L2: The disc is bulging. There is mild bilateral facet joint osteoarthritis. There is mild bilater al neural foraminal stenosis. There is mild central canal stenosis. L2-L3: The disc is bulging. There is mild bilateral facet joint osteoarthritis. There is mild bilater al neural foraminal stenosis. There is mild central canal stenosis. L3-L4: The disc is bulging. There is severe right and mild left facet joint osteoarthritis. There is moderate bilateral neural foraminal stenosis. There is mild central canal stenosis. L4-L5: The disc is bulging. There is moderate bilateral facet joint osteoarthritis. There is moderate bilateral neural foraminal stenosis. There is mild central canal stenosis. L5-S1: The disc is bulging. There is severe bilateral facet joint osteoarthritis. There is mild bilat eral neural foraminal stenosis. There is mild central canal stenosis. IMPRESSION: 1. Severe lumbar spondylosis, mildly worsened from 02/17/2019. 2. Lumbar levoscoliosis. 3. 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 Reviewed, dictated and finalized at location A.
== END 2021-01-13 11:57 | disposition home or self-care (01) ==
LOC: CHSIMG 11:58
PROVIDERS: PCP Internal Medicine; Visit Provider Internal Medicine
DX: M54.5 Low back pain (principal)
CPT/HCPCS: 72131

== ENCOUNTER 2021-01-19 11:21 | Outpatient (CLI) | payer MEDICARE, SELFPAY ==
[2021-01-19 11:32] LABS: Basophils Absolute Auto 0.01 K/mm3 (0.00-0.10); Basophils Percent Auto 0.2 % (0.0-1.0); Eosinophils Absolute Auto 0.04 K/mm3 (0.02-0.50); Eosinophils Percent Auto 0.9 % (1.0-6.0); Hematocrit 32.1 % (37.0-46.0); Hemoglobin 10.1 g/dL (12.4-15.3); Immature Granulocyte Absolute 0.02 K/mm3 (0.00-0.00); Immature Granulocyte Percent A 0.4 % (0.0-0.0); Lymphocytes Absolute Auto 0.81 K/mm3 (1.10-4.50); Lymphocytes Percent Auto 18.1 % (18.0-42.0); Mean Corpuscular HGB Conc 31.5 g/dL (32.0-36.0); Mean Corpuscular Hemoglobin 32.2 pg (27.0-31.0); Mean Corpuscular Volume 102.2 fL (78.0-102.0); Mean Platelet Volume 10.2 fl (8.7-11.0); Monocytes Absolute Auto 0.41 K/mm3 (0.10-0.90); Monocytes Percent Auto 9.2 % (2.0-11.0); Neutrophils Absolute Auto 3.2 K/mm3 (1.7-7.2); Neutrophils Percent Auto 71.2 % (50.0-70.0); Platelet Count Result 109 K/mm3 (150-420); Red Blood Count 3.14 M/mm3 (4.70-6.10); Red Cell Distribution Width 21.1 % (11.6-14.4); White Blood Count 4.5 K/mm3 (4.8-10.8)
[2021-01-19 12:26] LABS: Alanine Aminotransferase 15 U/L (16-63); Albumin Level 3.6 g/dL (3.4-5.0); Alkaline Phosphatase 44 U/L (46-116); Anion Gap 7 mmol/L (8-16); Aspartate Amino Transferase 11 U/L (15-37); Bilirubin,Total 0.8 mg/dL (0.00-1.00); Blood Urea Nitrogen 23 mg/dL (7-18); Calcium 8.8 mg/dL (8.5-10.1); Carbon Dioxide 31 mmol/L (21-32); Chloride 103 mmol/L (98-108); Estimated Glomerular Filt Rate 26; Ferritin 124 ng/mL (26-388); Glucose 145 mg/dL (70-99); Iron 74 ug/dL (65-175); Osmolality Calculated 298 mOsm/kg (285-295); Percent Iron Saturation 23 % (12-57); Potassium 4.3 mmol/L (3.5-5.1); Sodium 141 mmol/L (136-145); Total Protein 6.8 g/dL (6.4-8.2)
== END 2021-01-19 11:22 | disposition home or self-care (01) ==
LOC: CHSLAB 11:23
PROVIDERS: PCP Internal Medicine; Visit Provider Internal Medicine
DX: K92.1 Melena (principal); N18.30 Chronic kidney disease, stage 3 unspecified
CPT/HCPCS: 36415; 80053; 82728; 83540; 83550; 85025

== ENCOUNTER 2021-01-25 09:34 | Outpatient (CLI) | payer MEDICARE, SELFPAY ==
--- NOTE | 2021-01-25 09:41 | ECHO_ITS ---
Patient Info Name: Jovan Rodas Age: 80 years : 1940 Gender: Male Ht: 68 in Wt: 192 lbs BSA: 2.07 m2 HR: 69 bpm BP: 125 / 65 mmHg Technical Quality: Poor Exam Date: 01/25/2021 9:31 AM Exam Location: [facility] Patient Status: Outpatient Admit Date: 01/25/2021 Staff Ordering Physician: Ruddy Yang MD Toe Puller: Vero Preston RDCS Attending Provider: Ruddy Yang MD Referring Physician: Trey BLACKWOOD; Exam Type: CA echo dop color flow w con Study Info Indications I50.9 - Heart failure, unspecified Complete two-dimensional, color flow and Doppler transthoracic echocardiogram is performed with contrast to opacify the left ventricle and to improve the deliniation of the left ventricle endocardial borders. Strain analysis performed. Contrast/Agitated Saline Contrast/Ag. Saline: Definity Amount: 3.00 ml New IV Access: Antecubital Space and Right Site Condition: No extravasation, Site dressing applied and IV removed Reason for Poor Study: poor echocardiographic windows History/Risk Factors Hypertension: No Dyslipidemia: No Myocardial Infarction (IL): Yes Obesity: Yes Coronary Artery Disease (CAD) Yes Congestive Heart Failure (CHF): Hx CHF Diabetes Mellitus: No Tobacco Use: Former Family History: Coronary Artery Disease DVT Treatment: Apixaban Deep Vein Thrombosis (DVT): None Frailty Scale (CSHA): 2: Well Summary 1. Technically suboptimal study due to poor sonographic images. 2. Left ventricular chamber dimension is moderately enlarged. 3. Definity contrast administered improved wall motion interpretation. 4. Left ventricular systolic function is moderately reduced, estimated at 35-40%. 5. There is moderately increased left ventricular wall thickness. 6. The left ventricular diastolic function is grade III diastolic dysfunction. 7. E/e' 14 is mildly elevated. 8. Global longitudinal strain is abnormal at -9.3%. 9. Linear artifact in right ventricle suggestive of catheter(s), pacemaker lead(s), or ICD lead(s). 10. Left atrial chamber dimension is moderately enlarged. 11. Right atrial chamber dimension is mildly enlarged. 12. Linear artifact in the right atrium suggestive of catheter(s), pacemaker lead(s), or ICD lead(s). 13. There is mild mitral valve regurgitation. 14. There is moderate tricuspid valve regurgitation. 15. No pulmonary hypertension, estimated pulmonary arterial systolic pressure is 35 mmHg. Left Ventricle E/e' 14 is mildly elevated. Global longitudinal strain is abnormal at -9.3%. Definity contrast administered improved wall motion interpretation. Technically suboptimal study due to poor sonographic images. Left ventricular chamber dimension is moderately enlarged. Left ventricular systolic function is moderately reduced, estimated at 35-40%. There is moderately increased left ventricular wall thickness. The left ventricular diastolic function is grade III diastolic dysfunction. Right Ventricle Linear artifact in right ventricle suggestive of catheter(s), pacemaker lead(s), or ICD lead(s). Right ventricular systolic function is normal with normal TAPSE 2.1 cm. Right ventricular chamber dimension is not well visualized. Left Atria Left atrial chamber dimension is moderately enlarged. Right Atria Linear artifact in the right atrium suggestive of catheter(s), pacemaker lead(s), or ICD lead(s). Right atrial chamber dimension is mildly e
== END 2021-01-25 09:35 | disposition home or self-care (01) ==
LOC: CHSIMG 09:35
PROVIDERS: PCP Internal Medicine; Visit Provider Internal Medicine
DX: I50.9 Heart failure, unspecified (principal)
CPT/HCPCS: C8929

== ENCOUNTER 2021-01-25 13:11 | Outpatient (RCR) | payer MEDICARE, SELFPAY ==
--- NOTE | 2021-01-25 14:05 | PTOPEVAL ---
Thank you for referring Jovan Rodas to [facility] The patient is scheduled to be seen for therapy? ____x/week for ___ weeks. Please review, sign, date and return this plan of care EDMAR. I agree with and certify that the following plan of care is medically necessary. Referring Physician Date Admitting Provider: Attending Provider: Ruddy Yang MD Referring Provider: *PT Outpatient Evaluation Start: 01/25/21 12:59 Freq: Status: Active Protocol: Document 01/25/21 13:00 ACR (Rec: 01/25/21 14:01 ACR [id number]) Therapy Assessment Status Assessment Status Assessment Status Evaluation Outpatient Past Medical History Neurological History Hx Neurological Disorders No Significant History Cardiovascular History Hx Aneurysm Yes Hx Angina Yes Hx Atrial Fibrillation Yes Hx Cardiac Catheterization Yes: stent x2 2014 Hx Cardiac Surgery Yes: CABG x4 1996 Hx Congenital Heart Disease Yes Hx Congestive Heart Failure Yes Hx Coronary Artery Disease Yes Hx Hypercholesterolemia Yes Hx Hypertension Yes Hx Internal Defibrillator Yes: 2014 Hx Irregular Heartbeat Yes Hx Pacemaker Yes: Dr Carolina Fournier Hx Peripheral Vascular Disease Yes Hx Valve Replacement Yes: PAVR 2017 Hx Other Cardiac Disorders Yes: Carotid artery cleaned out 2011 Respiratory History Hx Chronic Obstructive Pulmonary Disease Yes (COPD) Hx Sleep Apnea Yes Gastrointestinal History Hx Cholecystectomy Yes Hx Hernia Yes Genitourinary History Hx Renal Disease Yes: kidney bipass post AAA 2007 Hx Other Genitourinary Disorders Yes Musculoskeletal History 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 Hx Arthritis Yes Hematological History Hx Anemia Yes Hx Blood Transfusions Yes Endocrine History Hx Endocrine Disorders No Significant History HEENT History Hx Other HEENT Disorders Yes: Peripheral neuropathy Integumentary History Hx Skin Disorders No Significant History Reproductive History Hx Other Reproductive Disorders Yes Psychosocial History Hx Anxiety Yes Pain History Has Past Pain Affected Your Daily Life Yes: Back pain Anesthesia History Hx Anesthesia Reactions No Significant History Other History Hx Implanted Device Yes: Defibrilator pacemaker Evaluation Information Problem Diagnosis low back pain Onset
== END 2021-04-25 23:59 | disposition home or self-care (01) ==
LOC: CHSPT 13:11
PROVIDERS: PCP Internal Medicine; Visit Provider Internal Medicine
DX: M54.5 Low back pain (principal); M19.90 Unspecified osteoarthritis, unspecified site
CPT/HCPCS: 97110; 97161

== ENCOUNTER 2021-01-26 05:48 | Outpatient (CLI) | payer MEDICARE, SELFPAY ==
--- NOTE | 2021-01-18 16:28 | PM.HPGS ---
History of Present Illness History of Present Illness Consent: Risks, benefits, and alternatives have been discussed and questions answered. Patient agrees to proceed with procedure. Chief complaint: iron def, anemia Narrative: Jovan Rodas is a 80 year old male with recurrent anemia, negative EGD and colonoscopy to explain anemia Review of Systems Constitutional: Constitutional: Denies headache(s) and Denies weakness Eyes: Eyes: Denies blurry vision ENT: Reports Normal hearing present, Denies headache(s) and Denies neck pain Cardiovascular: Cardiovascular: Denies chest pain and Denies dyspnea Respiratory: Respiratory: Denies dyspnea Gastrointestinal: Gastrointestinal: Reports no additional gastrointestinal complaints Genitourinary: Genitourinary: Denies dysuria Musculoskeletal: Musculoskeletal: Denies neck pain Integumentary/Breasts: Skin/Breast: Denies dry skin Neurologic: Reports Normal hearing present, Denies headache(s) and Denies weakness Psychiatric: Psychiatric: Denies anxiety Endocrine: Endocrine: Denies change in body appearance Hematologic/Lymphatic: Hematologic/Lymphatic: Denies easy bleeding Allergic/Immunologic: Allergic/Immunologic: Denies urticaria PMFSH Past Medical History Medical History (Updated 01/09/21 @ 16:47 by Eliel Samuels MD) AAA (abdominal aortic aneurysm) Acute on chronic blood loss anemia Atrial fibrillation Bladder cancer CAD (coronary artery disease) Cardiac defibrillator in place CHF (congestive heart failure) CKD (chronic kidney disease), stage III COPD (chronic obstructive pulmonary disease) Erectile dysfunction REESE (generalized anxiety disorder) Gout High cholesterol Hypertension Myocardial infarction x3 KIARRA (obstructive sleep apnea) Patient stated that he does not Use CPAP Pacemaker Peripheral neuropathy PVD (peripheral vascular disease) Surgical History Surgical History (Updated 12/30/20 @ 16:40 by Eliel Samuels MD) AICD (automatic cardioverter/defibrillator) present History of aortic valve repair History of back surgery History of bladder surgery TURB procedure 2009 History of cholecystectomy History of coronary artery stent placement 2 stents History of heart valve replacement History of hernia repair incisional History of tonsillectomy and adenoidectomy History of transcatheter aortic valve replacement (TAVR) S/P CABG (coronary artery bypass graft) Four vessel CABG Status post placement of cardiac pacemaker Family History Family History Father Family history of aortic aneurysm Acute myocardial infarction Mother Parkinsons disease Social History Social History Social History: The patient stated that he quit smoking many years ago. The patient has 4 children. His is his durable power ip attorney for healthcare. The patient is a full code. He is a former smoker. He denies any alcohol marijuana or illicit drugs. 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 Smoking packs per day: 2 Smoking cigarettes per day: 40.0 Years smoked: 45 Smoking pack-years: 90.00 Smoking status: Former smoker Alcohol intake: current Drinks per week: 2 Substance use: never Substance use type: does not use Additional living arrangements comments: . 4 Children. Additional occupation/education comments: Prior Occupation: [employer]. Gender identity (if verbalized by the patient): Male Spiritual care concerns: No Meds Home Medications and Allergies Home Medications Medication Instructions Recorded Confirmed Type apixaban 5 mg tablet 5 mg PO BID #180 tablet 07/31/19 12/29/20 Rx allopurinol 100 mg tablet 100 mg PO DAILY 08/17/19 12/29/20 History aspirin 81 mg tablet,delayed 81 mg PO DAILY 08/17/19 12/29/20 History release atorvastatin 40 mg ta
--- NOTE | 2021-01-26 06:42 | SUR.OPER ---
Patient brought to GI Lab. Instructions for patient undergoing Capsule Endoscopy reviewed with patient. Consent form signed. Sensor array applied to patient's abdomen and connected to recorded. Patient swallowed capsule with 12 ozs of water infused with Simethicone. Patient instructed they may have clear liquids at 0830 this AM and eat or drink at 1030 this AM. Patient instructed to return to GI Lab at 1500 this afternoon for removal of recording device and to call [phone] or to return to the hospital if any nausea and vomiting or abdominal pain is experienced.
== END 2021-01-26 05:49 | disposition home or self-care (01) ==
PROVIDERS: PCP Internal Medicine; Visit Provider Internal Medicine Gastroenterology
PROC: 0DJ07ZZ Inspection of Upper Intestinal Tract, Via Natural or Artificial Opening (ICD-10-PCS; CPT 91110; principal; 2021-01-26 07:00)
DX: Z01.812 Encounter for preprocedural laboratory examination (principal); D50.9 Iron deficiency anemia, unspecified
CPT/HCPCS: 91110

== ENCOUNTER 2021-03-13 11:27 | Emergency (ER) | payer MEDICARE, SELFPAY ==
[2021-03-13 11:40] VITALS: BP 130/81; PULSE 69; RESP 20; TEMP 36.4; O2SAT 99
--- NOTE | 2021-03-13 11:53 | ED.WOUNDLAC ---
HPI - Wound/Laceration General Chief Complaint: Wound/Laceration Stated Complaint: pt fell skinned arm/on blood thinners Time Seen by Provider: 03/13/21 12:04 History of Present Illness HPI narrative: 81-year-old male patient is here with some skin tears to his left forearm that happened yesterday after he hit his arm against some bushes while trying to park his boat. Patient states that he is on Eliquis and his bleeding has not stopped. The apparently changed the dressing several times. The patient states that he is up-to-date on his tetanus status. He denies any other injuries. Body four view annotation: 1. Related Data Home Medications Medication Instructions Recorded Confirmed allopurinol 100 mg tablet 100 mg PO DAILY 08/17/19 01/20/21 aspirin 81 mg tablet,delayed 81 mg PO DAILY 08/17/19 01/20/21 release atorvastatin 40 mg tablet 40 mg PO DAILY 08/17/19 01/20/21 carvedilol 12.5 mg tablet 12.5 mg PO Q12H 08/17/19 01/20/21 pregabalin 100 mg capsule 100 mg PO TID 08/17/19 01/20/21 tamsulosin 0.4 mg capsule 0.4 mg PO DAILY 08/17/19 01/20/21 finasteride 5 mg tablet 5 mg PO DAILY tablet 10/20/19 01/20/21 furosemide 20 mg tablet 20 mg PO QPM tablet 10/20/19 01/20/21 furosemide 40 mg tablet 40 mg PO QAM tablet 10/20/19 01/20/21 Iron (ferrous sulfate) 325 mg PO DAILY 12/29/20 01/20/21 Allergies Allergy/AdvReac Type Severity Reaction Status Date / Time oxycodone [OxyContin] Allergy Unknown Hallucinati Verified 01/20/21 09:29 ng Sulfa (Sulfonamide Allergy Unknown Rash Verified 01/20/21 09:29 Antibiotics) Review of Systems Review of Systems: All systems reviewed & are unremarkable except as noted in HPI and below PMFSH Past Medical History Medical History AAA (abdominal aortic aneurysm) Acute on chronic blood loss anemia Atrial fibrillation Bladder cancer CAD (coronary artery disease) Cardiac defibrillator in place CHF (congestive heart failure) CKD (chronic kidney disease), stage III COPD (chronic obstructive pulmonary disease) Erectile dysfunction REESE (generalized anxiety disorder) Gout High cholesterol Hypertension Myocardial infarction x3 KIARRA (obstructive sleep apnea) Patient stated that he does not Use CPAP Pacemaker Peripheral neuropathy PVD (peripheral vascular disease) Surgical History Surgical History AICD (automatic cardioverter/defibrillator) present History of aortic valve repair History of back surgery History of bladder surgery TURB procedure 2009 History of cholecystectomy History of coronary artery stent placement 2 stents History of heart valve replacement History of hernia repair incisional History of tonsillectomy and adenoidectomy History of transcatheter aortic valve replacement (TAVR) S/P CABG (coronary artery bypass graft) Four vessel CABG Status post placement of cardiac pacemaker Family History Family History Father Family history of aortic aneurysm Acute myocardial infarction Mother Parkinsons disease Social History Social History Social History: The patient stated that he quit smoking many years ago. The patient has 4 children. His is his durable power trade mark attorney for healthcare. The patient is a full code. He is a former smoker. He denies any alcohol marijuana or illicit drugs. 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 Smoking packs per day: 2 Smoking cigarettes per day: 40.0 Years smoked: 45 Smoking pack-years: 90.00 Smoking status: Former smoker Alcohol intake: current Drinks per week: 2 Substance use: never Substance use type: does not use Additional living arrangements comments: . 4 Children. Additional occupation/education comments: Prior Occupation: [employer]
[2021-03-13 12:18] VITALS: BP 141/70; PULSE 70; RESP 18; TEMP 36.1; O2SAT 99
== END 2021-03-13 12:20 | disposition home or self-care (01) ==
PROVIDERS: Emergency Provider Emergency Medicine; PCP Internal Medicine
DX: S51.812A Laceration without foreign body of left forearm, initial encounter (principal); W22.8XXA Striking against or struck by other objects, initial encounter
CPT/HCPCS: 99282

== ENCOUNTER 2021-04-12 12:32 | Outpatient (CLI) | payer MEDICARE, SELFPAY ==
--- NOTE | ~2021-04-12 | US_ITS ---
EXAMINATION: US arterial ankle brachial ind DATE: 04/12/2021 13:38 INDICATION: Peripheral arterial disease of the lower extremities TECHNIQUE: Segmental pressures and plethysmographic and Doppler waveforms of the brachial and lower e xtremity arteries were obtained. COMPARISON: None. FINDINGS: Right and left brachial artery pressures of 110 mm Hg and 119 mm Hg, respectively, are concordant (no rmal difference <= 30 mmHg). The right ankle-brachial index (CHICA) is 1.04 (normal >= 0.9-1.0). The right great toe-brachial index (TBI) is unavailable (normal >= 0.65). Arterial Doppler waveforms are triphasic. The left CHICA is 0.87. The left TBI is unavailable. Arterial Doppler waveforms are biphasic. IMPRESSION: Normal right CHICA of 1.04 Mildly diminished left CHICA of 0.87 Reviewed, dictated and finalized at [facility]. Reviewed, dictated and finalized at location [facility].
== END 2021-04-12 12:33 | disposition home or self-care (01) ==
LOC: CHSIMG 12:33
PROVIDERS: PCP Internal Medicine; Visit Provider Internal Medicine
DX: I73.9 Peripheral vascular disease, unspecified (principal)
CPT/HCPCS: 93922

== ENCOUNTER 2021-06-27 14:50 | Outpatient (CLI) | payer MEDICARE, SELFPAY ==
[2021-06-27 16:12] LABS: Influenza A QL RT-PCR Negative (Negative); Influenza B QL RT-PCR Negative (Negative); SARS-CoV-2 RNA PCR Negative (Negative)
== END 2021-06-27 14:51 | disposition home or self-care (01) ==
PROVIDERS: PCP Internal Medicine; Visit Provider Internal Medicine
DX: J06.9 Acute upper respiratory infection, unspecified (principal); Z20.822 Contact with and (suspected) exposure to COVID-19
CPT/HCPCS: 87502; C9803; U0003; U0005

== ENCOUNTER 2021-06-28 14:01 | Observation (INO) | payer MEDICARE, SELFPAY ==
[2021-06-28] VITALS (8 sets, daily range): BP systolic 99–145; BP diastolic 64–84; PULSE 88–98; RESP 18–21; TEMP 36.6–38.1; O2SAT 91–96; BMI 24.0
--- NOTE | ~2021-06-28 | CT_ITS ---
EXAMINATION: CT brain wo con INDICATION: Altered mental status COMPARISON: 01/21/2020 TECHNIQUE: Standard unenhanced head CT. The dose-length product (DLP) was 681.00 mGy-cm. The mA was a djusted according to patient size. Iterative reconstruction technique was employed. FINDINGS: There is no acute intraparenchymal hemorrhage. No evidence of mass lesion. No evidence of a cute infarction. Again noted is chronic encephalomalacia in the right parietal lobe. There is mild pe riventricular and subcortical hypodensity probably related to small vessel ischemic disease. There is mild prominence of the sulci and ventricles related to cerebral atrophy. Intracranial calcified cere bral atherosclerosis is noted. There are no extra-axial collections. There is no mass effect or midli ne shift. Again noted is an old blowout fracture in the medial wall the right orbit. The visualized s inuses and mastoid air cells are well aerated. IMPRESSION: 1. 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 2. Age related findings. Reviewed, dictated and finalized at location [facility].
--- NOTE | ~2021-06-28 | XR_ITS ---
EXAMINATION: XR chest 2V EXAM DATE: 06/28/2021 16:07 INDICATION: Fever, cough, weak. TECHNIQUE: Frontal and lateral projections of the chest obtained and reviewed. Comparison is made to prior examination from 12/29/2020. FINDINGS: A triple lead pacemaker/AICD device. Sternotomy wires. Aortic valve stent. Cardiomegaly an d pulmonary vascular congestion. Left basilar linear opacity likely subsegmental atelectasis. Pneumon ia not excludable. No pneumothorax. There is no significant interval change. IMPRESSION: 1. Subsegmental left lower lobe airspace disease, atelectasis or possibly pneumonia. 2. Cardiomegaly, vascular congestion. Reviewed, dictated and finalized at location A. IMPRESSION: 1. Subsegmental left lower lobe airspace disease, atelectasis or possibly pneum onia. 2. Cardiomegaly, vascular congestion.
--- NOTE | 2021-06-28 14:05 | ED.AMS ---
HPI - Altered Mental Status General Chief Complaint: Altered Mental Status Stated Complaint: cough /confusion Time Seen by Provider: 06/28/21 14:05 Source: patient Mode of arrival: wheelchair Limitations: altered mental status History of Present Illness HPI narrative: 81-year-old man who takes apixaban for atrial fibrillation comes to the ER today at the recommendation of his primary care doctor after they found him a bit confused at the office today. He has a history of GI bleeds. Because he has been having cough he had a COVID PCR and influenza testing yesterday, both of which were negative. He denies chest pain, shortness of breath, abdominal pain, change in appetite, cold symptoms, fever, dysuria, and blood in his stools. MD complaint: altered mental status Onset (ago): day(s) Severity: moderate Associated symptoms: cough Related Data Home Medications Medication Instructions Recorded Confirmed allopurinol 100 mg tablet 100 mg PO DAILY 08/17/19 03/13/21 aspirin 81 mg tablet,delayed 81 mg PO DAILY 08/17/19 03/13/21 release atorvastatin 40 mg tablet 40 mg PO DAILY 08/17/19 03/13/21 carvedilol 12.5 mg tablet 12.5 mg PO Q12H 08/17/19 03/13/21 pregabalin 100 mg capsule 100 mg PO TID 08/17/19 03/13/21 tamsulosin 0.4 mg capsule 0.4 mg PO DAILY 08/17/19 03/13/21 finasteride 5 mg tablet 5 mg PO DAILY tablet 10/20/19 03/13/21 furosemide 20 mg tablet 20 mg PO QPM tablet 10/20/19 03/13/21 furosemide 40 mg tablet 40 mg PO QAM tablet 10/20/19 03/13/21 Iron (ferrous sulfate) 325 mg PO DAILY 12/29/20 03/13/21 Allergies Allergy/AdvReac Type Severity Reaction Status Date / Time oxycodone [OxyContin] Allergy Unknown Hallucinati Verified 01/20/21 09:29 ng Sulfa (Sulfonamide Allergy Unknown Rash Verified 01/20/21 09:29 Antibiotics) Review of Systems Constitutional: Constitutional: Denies chills and Denies fever(s) Eyes: Eyes: Denies change in vision and Denies photophobia ENT: Denies dysphagia, Denies nasal congestion and Denies sore throat Cardiovascular: Cardiovascular: Denies chest pain Respiratory: Respiratory: Denies chest congestion, Reports cough and Denies dyspnea Gastrointestinal: Gastrointestinal: Denies abdominal pain, Denies diarrhea, Denies nausea and Denies vomiting Comments: States he has been having black stools. Denies diarrhea and hematochezia. Genitourinary: Genitourinary: Denies hematuria and Denies dysuria Musculoskeletal: Musculoskeletal: Reports back pain, Denies arthralgias and Denies joint swelling Integumentary/Breasts: Skin/Breast: Denies pruritus, Denies erythema and Denies rash Neurologic: Denies vertigo, Denies dizziness, Denies syncope, Denies focal weakness, Denies numbness and Reports weakness Endocrine: Endocrine: Denies polydipsia and Denies polyuria Hematologic/Lymphatic: Hematologic/Lymphatic: Reports easy bleeding and Reports easy bruising Allergic/Immunologic: Allergic/Immunologic: Denies lip swelling and Denies throat swelling PMFSH Past Medical History Medical History AAA (abdominal aortic aneurysm) Acute on chronic blood loss anemia Atrial fibrillation Bladder cancer CAD (coronary artery disease) Cardiac defibrillator in place CHF (congestive heart failure) CKD (chronic kidney disease), stage III COPD (chronic obstructive pulmonary disease) Erectile dysfunction REESE (generalized anxiety disorder) Gout High cholesterol Hypertension Myocardial infarction x3 KIARRA (obstructive sleep apnea) Patient stated that he does not Use CPAP Pacemaker Peripheral neuropathy PVD (peripheral vascular disease) Surgical History Surgical History AICD (automatic cardioverter/defibrillator) present History of aortic valve repair History of back surgery History of bladder surgery TURB procedure 2009 History of cholecystectomy History of coronary artery stent plac
--- NOTE | 2021-06-28 14:14 | ECG_ITS ---
Measurements Intervals [place] Rate: 87 P: SC: 0 QRS: -86 QRSD: 149 T: 58 QT: 394 QTc: 475 Interpretive Statements ATRIAL FIBRILLATION VENTRICULAR PREMATURE COMPLEX AND ELECTRONIC VENTRICULAR PACEMAKER COMPLEX RIGHT BUNDLE BRANCH BLOCK BASELINE ARTIFACT- I, II, III, AVR, AVL, AVF, V6 ABNORMAL ECG Electronically Signed On 06-28-2021 15:01:27 CDT by Daniel Metzger D.O.
[2021-06-28 14:55] LABS: INR 1.3; Partial Thromboplastin Time 34.5 SEC (23.90-30.70); Prothrombin Time 13.3 Seconds (9.50-12.10)
[2021-06-28 14:58] LABS: Basophils Absolute Auto 0.02 K/mm3 (0.00-0.10); Basophils Percent Auto 0.3 % (0.0-1.0); Eosinophils Percent Auto 1.7 % (1.0-6.0); Hematocrit 39.8 % (37.0-46.0); Hemoglobin 13.4 g/dL (12.4-15.3); Immature Granulocyte Absolute 0.01 K/mm3 (0.00-0.00); Immature Granulocyte Percent A 0.2 % (0.0-0.0); Immature Platelet Fraction Pct 2.5 % (1.0-7.0); Lymphocytes Absolute Auto 0.51 K/mm3 (1.10-4.50); Lymphocytes Percent Auto 8.6 % (18.0-42.0); Mean Corpuscular HGB Conc 33.7 g/dL (32.0-36.0); Mean Corpuscular Hemoglobin 33.3 pg (27.0-31.0); Mean Platelet Volume 11.2 fl (8.7-11.0); Monocytes Percent Auto 13.5 % (2.0-11.0); Neutrophils Absolute Auto 4.5 K/mm3 (1.7-7.2); Neutrophils Percent Auto 75.7 % (50.0-70.0); Platelet Count Result 93 K/mm3 (150-420); Red Blood Count 4.02 M/mm3 (4.70-6.10); Red Cell Distribution Width 14.6 % (11.6-14.4); White Blood Count 5.9 K/mm3 (4.8-10.8)
[2021-06-28 15:01] LABS: Alanine Aminotransferase 18 U/L (16-63); Albumin Level 3.8 g/dL (3.4-5.0); Alkaline Phosphatase 45 U/L (46-116); Anion Gap 9 mmol/L (8-16); Aspartate Amino Transferase 20 U/L (15-37); Bilirubin,Total 1.2 mg/dL (0.00-1.00); Blood Urea Nitrogen 27 mg/dL (7-18); CRP 9.3 mg/dL (0.0-0.9); Calcium 8.6 mg/dL (8.5-10.1); Carbon Dioxide 30 mmol/L (21-32); Chloride 100 mmol/L (98-108); Estimated CRCL calculation 25 ml/min; Estimated Glomerular Filt Rate 31; Glucose 135 mg/dL (70-99); Lactic Acid Reflex 1.8 mmol/L (0.4-2.0); Lipase 109 U/L (73-393); Osmolality Calculated 295 mOsm/kg (285-295); Potassium 4.4 mmol/L (3.5-5.1); Sodium 139 mmol/L (136-145); Troponin I 22.7 ng/L (0.00-60.4)
--- NOTE | 2021-06-28 15:06 | PC.NURSE ---
Accompanied Dr. Espinoza with rectal exam.
[2021-06-28 15:07] LABS: Occult Blood Negative (Negative)
[2021-06-28 15:31] LABS: Influenza A QL RT-PCR Negative (Negative); Influenza B QL RT-PCR Negative (Negative); SARS-CoV-2 RNA PCR Negative (Negative)
[2021-06-28] MEDS: SODIUM CHLORIDE 0.9% IV 500 ML 999 ML IV CONT (15:40)
--- NOTE | 2021-06-28 16:44 | PCDIET ---
Urine obtained and walked to lab.
[2021-06-28 16:54] LABS: NT Pro B Type Natriuretic Pept 785 pg/mL (0-450)
[2021-06-28 16:55] LABS: Add Urine Microscopic? NO; Appearance Urine Clear (Clear); Bilirubin Urine Negative (Negative); Blood Urine Negative (Negative); Color Urine Light Yellow (Yellow); Glucose Urine UA Negative (Negative); Ketones Urine Negative (Negative); Leukocyte Esterase Ur Negative LEU/UL (Negative); Nitrate Urine Negative (Negative); Protein Urine Negative (Negative); Specific Grav Ur 1.015 (1.010-1.020); Urobilinogen Urine 0.2 mg/dL (0.2-1.0)
--- NOTE | 2021-06-28 16:59 | PCDIET ---
Beryl, charge on floor notified of pt admission status.
--- NOTE | 2021-06-28 16:59 | PC.NURSE ---
Registration notified of pt admission status and room number.
--- NOTE | 2021-06-28 17:15 | PC.NURSE ---
Phone report given to TRI Puga
[2021-06-28] MEDS: carvediloL 12.5 MG TABLET PO (22:06)
[2021-06-28] MEDS: traMADol HCL (*CRX) 50 MG TABLET PO (23:59)
[2021-06-29] VITALS (7 sets, daily range): BP systolic 105–126; BP diastolic 54–75; PULSE 76–95; RESP 18–20; TEMP 35.8–36.3; O2SAT 94–100
[2021-06-29 05:16] LABS: Basophils Absolute Auto 0.03 K/mm3 (0.00-0.10); Basophils Percent Auto 0.5 % (0.0-1.0); Eosinophils Absolute Auto 0.03 K/mm3 (0.02-0.50); Eosinophils Percent Auto 0.5 % (1.0-6.0); Hematocrit 36.6 % (37.0-46.0); Hemoglobin 12.1 g/dL (12.4-15.3); Immature Granulocyte Absolute 0.02 K/mm3 (0.00-0.00); Immature Granulocyte Percent A 0.3 % (0.0-0.0); Lymphocytes Absolute Auto 0.78 K/mm3 (1.10-4.50); Lymphocytes Percent Auto 12.3 % (18.0-42.0); Mean Corpuscular HGB Conc 33.1 g/dL (32.0-36.0); Mean Corpuscular Hemoglobin 32.6 pg (27.0-31.0); Mean Corpuscular Volume 98.7 fL (78.0-102.0); Mean Platelet Volume 9.9 fl (8.7-11.0); Monocytes Absolute Auto 0.92 K/mm3 (0.10-0.90); Monocytes Percent Auto 14.5 % (2.0-11.0); Neutrophils Absolute Auto 4.6 K/mm3 (1.7-7.2); Neutrophils Percent Auto 71.9 % (50.0-70.0); Platelet Count Result 89 K/mm3 (150-420); Red Blood Count 3.71 M/mm3 (4.70-6.10); Red Cell Distribution Width 14.8 % (11.6-14.4); White Blood Count 6.3 K/mm3 (4.8-10.8)
[2021-06-29 05:21] LABS: Immature Platelet Fraction Pct 2.3 % (1.0-7.0)
[2021-06-29 05:34] LABS: Alanine Aminotransferase 16 U/L (16-63); Albumin Level 3.4 g/dL (3.4-5.0); Alkaline Phosphatase 38 U/L (46-116); Anion Gap 11 mmol/L (8-16); Aspartate Amino Transferase 19 U/L (15-37); Bilirubin,Total 1.2 mg/dL (0.00-1.00); Blood Urea Nitrogen 31 mg/dL (7-18); Calcium 8.4 mg/dL (8.5-10.1); Carbon Dioxide 30 mmol/L (21-32); Chloride 99 mmol/L (98-108); Estimated CRCL calculation 23 ml/min; Estimated Glomerular Filt Rate 23; Glucose 132 mg/dL (70-99); Magnesium 2.2 mg/dL (1.8-2.4); Osmolality Calculated 298 mOsm/kg (285-295); Potassium 3.9 mmol/L (3.5-5.1); Sodium 140 mmol/L (136-145); Total Protein 7.5 g/dL (6.4-8.2)
[2021-06-29] MEDS: traMADol HCL (*CRX) 50 MG TABLET PO ×2 (06:16→12:10)
--- NOTE | 2021-06-29 08:26 | PM.IMHP ---
H&P: HPI History of Present Illness Date/Time: This is a same-day discharge 06/29/21 08:26 this is an 81-year-old male who presented to our emergency department yesterday from his primary care physician office after they found him to be a bit confused. Patient has a past medical history of AAA, anemia due to blood loss, A. fib, bladder cancer, CAD, AICD, congestive heart failure, chronic kidney disease stage III, COPD, erectile dysfunction, REESE, gout, high cholesterol, hypertension, RI x3, KIARRA,, peripheral neuropathy and PVD. Today patient is alert and orientated x4 and very anxious to discharge. Patient notes that he is here at our facility because his per patient needs a kick in [facility] , he would not elaborate on that. According to notes patient seemed to be a bit confused and was taken to his primary care physician office who then referred him here to our ED he was then admitted to rule out a CVA and treatment of pneumonia. Patient does not complain of shortness of breath he does have a cough which is chronic for him and his reason for admission was explained. Patient has agreed to stay for 1 day he knows that he will need to discharge before the weekend and his granddaughter has graduated out of the nursing program and will be pinned over the weekend in [place] and he will need to go. All attempts will be made to discharge patient to attend his granddaughter pending ceremony. Patient's WBC 5.9, hemoglobin 13.4 hematocrit 39.8 platelets 93, sodium 139, potassium 4.4, BUN 27, creatinine 2.08 glucose 135, lactic acid 1.8, AST 20, ALT 18, troponin 22.7, CRP 9.3, BNP 785, Covid and influenza negative, CT of the head with old infarct no new findings, chest x-ray indicates left lower lobe pneumonia, EKG indicates A. fib with a heart rate of 87. No neurovascular deficiency noted. patient admitted for pneumonia and rule out CVA. Patient anxious to discharge Observation Time spent 60 minutes Patient refused echo will order as outpatient Chief Complaint: confusion Review of Systems Review of Systems: A 14 organ system Review of Systems was performed and pertinent positives included in the HPI, otherwise remaining ROS is negative. [facility] Past Medical History Medical History AAA (abdominal aortic aneurysm) Acute on chronic blood loss anemia Atrial fibrillation Bladder cancer CAD (coronary artery disease) Cardiac defibrillator in place CHF (congestive heart failure) CKD (chronic kidney disease), stage III COPD (chronic obstructive pulmonary disease) Erectile dysfunction REESE (generalized anxiety disorder) Gout High cholesterol Hypertension Myocardial infarction x3 KIARRA (obstructive sleep apnea) Patient stated that he does not Use CPAP Pacemaker Peripheral neuropathy PVD (peripheral vascular disease) Surgical History Surgical History AICD (automatic cardioverter/defibrillator) present History of aortic valve repair History of back surgery History of bladder surgery TURB procedure 2009 History of cholecystectomy History of coronary artery stent placement 2 stents History of heart valve replacement History of hernia repair incisional History of tonsillectomy and adenoidectomy History of transcatheter aortic valve replacement (TAVR) S/P CABG (coronary artery bypass graft) Four vessel CABG Status post placement of cardiac pacemaker Family History Family History Father Family history of aortic aneurysm Acute myocardial infarction Mother Parkinsons disease Social History Social History Social History: The patient stated that he quit smoking many years ago. The patient has 4 children. His is his durable power senior attorney for healthcare. The patient is a full code. He is a former smoker. He
[2021-06-29] MEDS: ASPIRIN 81 MG ENTERIC TABLET PO (08:35)
[2021-06-29] MEDS: ATORVASTATIN 40 MG TABLET PO (08:36)
[2021-06-29] MEDS: TAMSULOSIN HCL 0.4 MG CAPSULE PO (08:36)
[2021-06-29] MEDS: PANTOPRAZOLE 40 MG TABLET PO (08:36)
[2021-06-29] MEDS: POTASSIUM CHLORIDE 20 MEQ TABLET PO (08:36)
[2021-06-29] MEDS: PREGABALIN (*CRX) 100 MG CAPSULE PO ×2 (08:36→13:04)
[2021-06-29] MEDS: traZODone HCL 50 MG TABLET PO ×2 (08:36→13:04)
[2021-06-29] MEDS: APIXABAN 2.5 MG TABLET 5 MG BY MOUTH (08:37)
[2021-06-29] MEDS: carvediloL 12.5 MG TABLET PO (08:37)
[2021-06-29] MEDS: FINASTERIDE 5 MG TABLET PO (08:38)
[2021-06-29] MEDS: FUROSEMIDE 40 MG TABLET PO (08:38)
[2021-06-29] MEDS: allopurinoL 100 MG TABLET PO (08:38)
[2021-06-29] MEDS: BENZONATATE 100 MG CAPSULE 200 MG PO ×2 (08:50→13:04)
[2021-06-29] MEDS: guaiFENesin 12 HR 600 MG TABCR PO (08:50)
[2021-06-29] MEDS: BUDESONIDE/FORMOTEROL 80/4.5 MCG 6.9 GM INHALER (*SP) 2 PUFF INHALATION (09:03)
--- NOTE | 2021-06-29 11:23 | PC.NURSE ---
xray here for him. fluids have been encouraged. friendlier with staff @ this time. still has to be his way. will not let staff finish sentences if it is not what wants to hear, he will stop you mid sentence. still has hacky cough. encouraged to cover mouth when cough. coughs into face when close. up in chair. will not let urine be measured. dk wen urine in toilet. sits in chair. at bedside.
[2021-06-29 12:52] LABS: Anion Gap 7 mmol/L (8-16); Blood Urea Nitrogen 37 mg/dL (7-18); Calcium 8.7 mg/dL (8.5-10.1); Carbon Dioxide 31 mmol/L (21-32); Chloride 98 mmol/L (98-108); Estimated CRCL calculation 25 ml/min; Estimated Glomerular Filt Rate 25; Glucose 121 mg/dL (70-99); Osmolality Calculated 291 mOsm/kg (285-295); Potassium 3.7 mmol/L (3.5-5.1); Sodium 136 mmol/L (136-145)
--- NOTE | 2021-06-29 15:18 | PC.NURSE ---
@ 1130 during x-ray procedure patient declined to finish. pastry wrapper aware. 2070 patient discharged to . barks orders and treats as same as staff. will not let us staff/ finish sentence. can be forgetful. dc orders went over with . she vocalizes an understanding and encouraged to call back up here if further questions arise.
--- NOTE | 2021-06-30 14:19 | PC.NURSE ---
Pt states he received and understood his discharge instructions. Pt has no other comments.
== END 2021-06-29 14:55 | disposition home or self-care (01) ==
LOC: CHSED 16:29 → CHS2ND 17:02
PROVIDERS: Nurse Practitioner; Admitting Provider Emergency Medicine; Emergency Provider Emergency Medicine; PCP Internal Medicine; Visit Provider Emergency Medicine
DX: J18.9 Pneumonia, unspecified organism (principal); G93.40 Encephalopathy, unspecified; I71.4 Abdominal aortic aneurysm, without rupture; I48.20 Chronic atrial fibrillation, unspecified; I25.10 Atherosclerotic heart disease of native coronary artery without angina pectoris; I13.0 Hypertensive heart and chronic kidney disease with heart failure and stage 1 through stage 4 chronic kidney disease, or unspecified chronic kidney disease; N18.30 Chronic kidney disease, stage 3 unspecified; I73.9 Peripheral vascular disease, unspecified; I50.9 Heart failure, unspecified; J44.9 Chronic obstructive pulmonary disease, unspecified; C67.9 Malignant neoplasm of bladder, unspecified; D64.9 Anemia, unspecified; E78.00 Pure hypercholesterolemia, unspecified; I25.2 Old myocardial infarction; M10.9 Gout, unspecified; G47.33 Obstructive sleep apnea (adult) (pediatric); G62.9 Polyneuropathy, unspecified; F41.1 Generalized anxiety disorder; Z90.49 Acquired absence of other specified parts of digestive tract; Z95.810 Presence of automatic (implantable) cardiac defibrillator; Z95.5 Presence of coronary angioplasty implant and graft; Z95.1 Presence of aortocoronary bypass graft; Z95.2 Presence of prosthetic heart valve; Z20.822 Contact with and (suspected) exposure to COVID-19
CPT/HCPCS: 36415; 70450; 71046; 80048; 80053; 81003; 82272; 83605; 83690; 83735; 83880; 84484; 85025; 85055; 85610; 85730; 86140; 87040; 87502; 93005; 96361; 96365; 96366; 96367; 96375; 99285; A9270; C9803; G0378; J0456; J0696; J7040; U0003; U0005

== ENCOUNTER 2021-07-05 10:38 | Outpatient (CLI) | payer MEDICARE, SELFPAY ==
--- NOTE | ~2021-07-05 | XR_ITS ---
XR chest 2V 07/05/2021 11:10 Indication: Follow-up pneumonia Procedure: 2 view chest Comparison: 06/28/2021 Findings: Status post median sternotomy for CABG. Pacemaker leads are stable. There are persistent is bibasilar airspace disease. Possible small left effusion. There is an aortic valve stent. No pneumot horax. No acute osseous abnormality. Impression: 1: Bibasilar airspace disease, left greater than right. Differential diagnosis includes atelectasis a nd/or pneumonia. No significant interval change. Reviewed, dictated and finalized at location A. TERING SUPERVISOR Impression: 1: Bibasilar airspace disease, left greater than right. Differential diagnosis includes atelectasis and/or pneumonia. No significant interval change.
== END 2021-07-05 10:39 | disposition home or self-care (01) ==
LOC: CHSIMG 10:41
PROVIDERS: PCP Internal Medicine; Visit Provider Internal Medicine
DX: J18.9 Pneumonia, unspecified organism (principal)
CPT/HCPCS: 71046

== ENCOUNTER 2021-09-30 04:56 | Inpatient (IN) | payer MEDICARE, SELFPAY ==
[2021-09-30] VITALS (9 sets, daily range): BP systolic 114–140; BP diastolic 63–86; PULSE 64–83; RESP 16–20; TEMP 36.1–36.6; O2SAT 95–99; BMI 28.5
--- NOTE | ~2021-09-30 | CT_ITS ---
EXAMINATION: CT diagnostic chest wo con DATE: 09/30/2021 06:10 INDICATION: Redness of breath. CHF. TECHNIQUE: Computed tomography (CT) of the chest was performed without intravenous contrast. The dose -length product was 692.61 mGy-cm. Automated exposure control and iterative reconstruction technique were employed. COMPARISON: CT dated 12/30/2020 FINDINGS: Small bilateral pleural effusions. Status post median sternotomy for CABG. There is an aort ic valve repair. Pacemaker leads are present. There is atherosclerosis of the aorta. There is a supra renal abdominal aortic aneurysm measuring 5.4 x 5.1 cm partially visualized. There is patchy groundglass opacification with areas of intralobular septal thickening and cardiomega ly. There is dependent atelectasis. There is mediastinal lymphadenopathy, likely reactive. IMPRESSION: 1. Patchy groundglass opacification with interlobular septal thickening and small pleural effusions w hich may represent edema or pneumonia. 2: Suprarenal abdominal aortic aneurysm measuring 5.4 x 5.1 cm, partially visualized. 3: Mediastinal lymphadenopathy, likely reactive. Reviewed, dictated and finalized at location A. EMERGING MEDIA IMPRESSION: 1. Patchy groundglass opacification with interlobular septal thickening and sma ll pleural effusions which may represent edema or pneumonia. 2: Suprarenal abdominal aortic aneurysm measuring 5.4 x 5.1 cm, partially visu alized. 3: Mediastinal lymphadenopathy, likely reactive.
--- NOTE | ~2021-09-30 | XR_ITS ---
XR chest 1V portable 09/30/2021 05:19 Indication: Shortness of breath. CHF. Procedure: AP portable chest Comparison: Comparison to multiple prior studies sequentially, with oldest reviewed study dated 01/14. Findings: Status post median sternotomy for CABG. Cardiomegaly. Diffuse bilateral airspace disease. P acemaker/defibrillator leads are stable. No pneumothorax or significant effusion. Impression: 1: Diffuse bilateral airspace disease which may represent edema and/or pneumonia. 2: Cardiomegaly. Reviewed, dictated and finalized at location A. [facility] [employer] [place] Impression: 1: Diffuse bilateral airspace disease which may represent edema and/or pneumoni a. 2: Cardiomegaly.
--- NOTE | 2021-09-30 05:02 | ECG_ITS ---
Measurements Intervals [place] Rate: 76 P: [place]: 0 QRS: -74 QRSD: 139 T: 81 QT: 401 QTc: 453 Interpretive Statements ATRIAL FIBRILLATION ELECTRONIC VENTRICULAR PACEMAKER COMPLEXES RIGHT BUNDLE BRANCH BLOCK CONSIDER INFERIOR INFARCT, AGE INDETERMINATE BASELINE ARTIFACT- I, II, III, AVR, AVL, AVF, V1-V3 ABNORMAL ECG Electronically Signed On 09-30-2021 7:17:42 GROUP ACCOUNT DIRECTOR by Daniel Metzger D.O.
[2021-09-30 05:32] LABS: Basophils Absolute Auto 0.01 K/mm3 (0.00-0.10); Basophils Percent Auto 0.2 % (0.0-1.0); Eosinophils Absolute Auto 0.11 K/mm3 (0.02-0.50); Eosinophils Percent Auto 1.9 % (1.0-6.0); Hematocrit 31.9 % (37.0-46.0); Hemoglobin 10.6 g/dL (12.4-15.3); Immature Granulocyte Absolute 0.03 K/mm3 (0.00-0.00); Immature Granulocyte Percent A 0.5 % (0.0-0.0); Immature Platelet Fraction Pct 2.3 % (1.0-7.0); Lymphocytes Absolute Auto 0.55 K/mm3 (1.10-4.50); Lymphocytes Percent Auto 9.5 % (18.0-42.0); Mean Corpuscular HGB Conc 33.2 g/dL (32.0-36.0); Mean Corpuscular Hemoglobin 34.1 pg (27.0-31.0); Mean Corpuscular Volume 102.6 fL (78.0-102.0); Mean Platelet Volume 11.1 fl (8.7-11.0); Monocytes Absolute Auto 0.62 K/mm3 (0.10-0.90); Monocytes Percent Auto 10.7 % (2.0-11.0); Neutrophils Absolute Auto 4.5 K/mm3 (1.7-7.2); Neutrophils Percent Auto 77.2 % (50.0-70.0); Platelet Count Result 74 K/mm3 (150-420); Red Blood Count 3.11 M/mm3 (4.70-6.10); Red Cell Distribution Width 16.1 % (11.6-14.4); White Blood Count 5.8 K/mm3 (4.8-10.8)
--- NOTE | 2021-09-30 05:40 | ED.SOB ---
HPI - SOB/Dyspnea General Chief Complaint: Shortness of Breath/Dyspnea Stated Complaint: SOB Time Seen by Provider: 09/30/21 04:58 Source: patient, EMS and RN notes reviewed Mode of arrival: EMS Limitations: no limitations History of Present Illness MD elicited complaint: shortness of breath and chest pain (lateral right chest pain) Pertinent past history: congestive heart failure Onset (ago): week(s) (1) Context: occurred during exertion Timing: constant Severity: moderate Exacerbating factors: nothing Relieving factors: oxygen Known history of: congestive heart failure Associated symptoms: chest pain Treatment prior to arrival: oxygen Related Data Home oxygen amount: none Home Medications Medication Instructions Recorded Confirmed aspirin 81 mg tablet,delayed 81 mg PO DAILY 08/17/19 09/30/21 release atorvastatin 40 mg tablet 40 mg PO DAILY 08/17/19 09/30/21 carvedilol 12.5 mg tablet 12.5 mg PO Q12H 08/17/19 09/30/21 pregabalin 100 mg capsule 100 mg PO TID 08/17/19 09/30/21 tamsulosin 0.4 mg capsule 0.4 mg PO DAILY 08/17/19 09/30/21 finasteride 5 mg tablet 5 mg PO DAILY tablet 10/20/19 09/30/21 furosemide 40 mg tablet 40 mg PO QAM tablet 10/20/19 09/30/21 Iron (ferrous sulfate) 325 mg PO DAILY 12/29/20 09/30/21 allopurinol 100 mg PO DAILY 06/28/21 09/30/21 benzonatate 200 mg PO TID PRN 09/30/21 09/30/21 trazodone 50 mg PO HS PRN 09/30/21 09/30/21 Allergies Allergy/AdvReac Type Severity Reaction Status Date / Time oxycodone [OxyContin] Allergy Unknown Hallucinati Verified 06/28/21 17:13 ng Sulfa (Sulfonamide Allergy Unknown Rash Verified 06/28/21 17:13 Antibiotics) Review of Systems Review of Systems: All systems reviewed & are unremarkable except as noted in HPI and below PMFSH Past Medical History Medical History AAA (abdominal aortic aneurysm) Acute on chronic blood loss anemia Atrial fibrillation Bladder cancer CAD (coronary artery disease) Cardiac defibrillator in place CHF (congestive heart failure) CKD (chronic kidney disease), stage III COPD (chronic obstructive pulmonary disease) Erectile dysfunction REESE (generalized anxiety disorder) Gout High cholesterol Hypertension Myocardial infarction x3 KIARRA (obstructive sleep apnea) Patient stated that he does not Use CPAP Pacemaker Peripheral neuropathy PVD (peripheral vascular disease) Surgical History Surgical History AICD (automatic cardioverter/defibrillator) present History of aortic valve repair History of back surgery History of bladder surgery TURB procedure 2009 History of cholecystectomy History of coronary artery stent placement 2 stents History of heart valve replacement History of hernia repair incisional History of tonsillectomy and adenoidectomy History of transcatheter aortic valve replacement (TAVR) S/P CABG (coronary artery bypass graft) Four vessel CABG Status post placement of cardiac pacemaker Family History Family History Father Family history of aortic aneurysm Acute myocardial infarction Mother Parkinsons disease Social History Social History Social History: The patient stated that he quit smoking many years ago. The patient has 4 children. His is his durable power reservations clerk for healthcare. The patient is a full code. He is a former smoker. He denies any alcohol marijuana or illicit drugs. 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 Smoking packs per day: 2 Smoking cigarettes per day: 40.0 Years smoked: 45 Smoking pack-years: 90.00 Smoking status: Former smoker Tobacco type: cigarettes Second hand tobacco smoke exposure: No Alcohol intake: current Drinks per week: 3 Substance use: never Substance use type: does no
[2021-09-30] MEDS: FUROSEMIDE INJ 100 MG/10 ML VIAL 80 MG IV PUSH (05:42)
[2021-09-30 05:51] LABS: SARS-CoV-2 Ag Negative (Negative)
[2021-09-30 05:52] LABS: Alanine Aminotransferase 19 U/L (16-63); Albumin Level 3.3 g/dL (3.4-5.0); Alkaline Phosphatase 37 U/L (46-116); Anion Gap 8 mmol/L (8-16); Aspartate Amino Transferase 19 U/L (15-37); Bilirubin,Total 2.4 mg/dL (0.00-1.00); Blood Urea Nitrogen 31 mg/dL (7-18); Calcium 8.8 mg/dL (8.5-10.1); Carbon Dioxide 26 mmol/L (21-32); Chloride 105 mmol/L (98-108); Estimated CRCL calculation 28 ml/min; Estimated Glomerular Filt Rate 36; Glucose 132 mg/dL (70-99); NT Pro B Type Natriuretic Pept 2564 pg/mL (0-450); Osmolality Calculated 296 mOsm/kg (285-295); Potassium 4.4 mmol/L (3.5-5.1); Sodium 139 mmol/L (136-145); Total Protein 7.1 g/dL (6.4-8.2)
--- NOTE | 2021-09-30 05:52 | PC.NURSE ---
Pt reports long hx of cardiac and has a pacemaker/defib in place that he reports needs to be checked and have battery changed. Pt states he hasn't seen his parts technician in years.
[2021-09-30 05:53] LABS: Troponin I 16.2 ng/L (0.00-60.4)
[2021-09-30 06:20] LABS: Base Excess ABG -2.4 mmol/L (0-2); HCO3 ABG 21.4 mmol/L (23-29); Oxygen Content ABG 15.2 %vol (16.0-22.0); Oxygen Saturation ABG 93.9 % (95-97); Oxyhemoglobin 93.1 % (94-100); PCO2 ABG 33.6 mmHg (35-45); Total Hemoglobin 11.6 g/dL (12.0-18.0); pH ABG 7.42 (7.35-7.45)
[2021-09-30 06:21] LABS: Device NASAL CANNULA; Modified Allen's Test Pass; Site Drawn RIGHT RADIAL
[2021-09-30 06:25] LABS: Add Urine Microscopic? NO; Appearance Urine Clear (Clear); Bilirubin Urine Negative (Negative); Blood Urine Negative (Negative); Color Urine Yellow (Yellow); Glucose Urine UA Negative (Negative); Ketones Urine Negative (Negative); Leukocyte Esterase Ur Negative LEU/UL (Negative); Nitrate Urine Negative (Negative); Protein Urine Negative (Negative); Urobilinogen Urine 0.2 mg/dL (0.2-1.0); pH Urine 5.5 (5.0-8.0)
[2021-09-30] MEDS: AZITHROMYCIN 250 MG TABLET 500 MG PO (06:55)
--- NOTE | 2021-09-30 07:03 | PC.NURSE ---
ERP discussed POC for admission, call placed to floor for bed assignment. Pt to go to Rm 203.
--- NOTE | 2021-09-30 08:20 | PC.NURSE ---
Patient brought up from ED per wheelchair, assisted to bed. Oriented to room and call light.
[2021-09-30] MEDS: TAMSULOSIN HCL 0.4 MG CAPSULE PO (09:40)
[2021-09-30] MEDS: allopurinoL 100 MG TABLET PO (09:40)
[2021-09-30] MEDS: POTASSIUM CHLORIDE 20 MEQ TABLET 40 MEQ PO (09:40)
[2021-09-30] MEDS: ASPIRIN 81 MG ENTERIC TABLET PO (09:40)
[2021-09-30] MEDS: FERROUS SULFATE 324 MG TABLET PO (09:41)
[2021-09-30] MEDS: PANTOPRAZOLE 40 MG TABLET PO (09:41)
[2021-09-30] MEDS: guaiFENesin 12 HR 600 MG TABCR PO ×2 (09:41→20:20)
[2021-09-30] MEDS: carvediloL 12.5 MG TABLET PO ×2 (09:41→20:15)
[2021-09-30] MEDS: PREGABALIN (*CRX) 100 MG CAPSULE PO ×3 (09:41→16:47)
[2021-09-30] MEDS: APIXABAN 2.5 MG TABLET 5 MG PO ×2 (09:41→16:47)
[2021-09-30] MEDS: FUROSEMIDE 40 MG TABLET PO (09:41)
[2021-09-30] MEDS: FINASTERIDE 5 MG TABLET PO (09:41)
[2021-09-30] MEDS: ATORVASTATIN 40 MG TABLET PO (09:41)
--- NOTE | 2021-09-30 12:58 | PM.IMHP ---
H&P: HPI History of Present Illness Date/Time: 09/30/21 12:59 [facility] Past Medical History Medical History AAA (abdominal aortic aneurysm) Acute on chronic blood loss anemia Atrial fibrillation Bladder cancer CAD (coronary artery disease) Cardiac defibrillator in place CHF (congestive heart failure) CKD (chronic kidney disease), stage III COPD (chronic obstructive pulmonary disease) Erectile dysfunction REESE (generalized anxiety disorder) Gout High cholesterol Hypertension Myocardial infarction x3 KIARRA (obstructive sleep apnea) Patient stated that he does not Use CPAP Pacemaker Peripheral neuropathy PVD (peripheral vascular disease) Surgical History Surgical History AICD (automatic cardioverter/defibrillator) present History of aortic valve repair History of back surgery History of bladder surgery TURB procedure 2009 History of cholecystectomy History of coronary artery stent placement 2 stents History of heart valve replacement History of hernia repair incisional History of tonsillectomy and adenoidectomy History of transcatheter aortic valve replacement (TAVR) S/P CABG (coronary artery bypass graft) Four vessel CABG Status post placement of cardiac pacemaker Family History Family History Father Family history of aortic aneurysm Acute myocardial infarction Mother Parkinsons disease Social History Social History Social History: The patient stated that he quit smoking many years ago. The patient has 4 children. His is his durable power collections attorney for healthcare. The patient is a full code. He is a former smoker. He denies any alcohol marijuana or illicit drugs. 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 Smoking packs per day: 2 Smoking cigarettes per day: 40.0 Years smoked: 45 Smoking pack-years: 90.00 Smoking status: Former smoker Second hand tobacco smoke exposure: No Alcohol intake: never Drinks per week: 3 Substance use: never Substance use type: does not use Additional living arrangements comments: . 4 Children. Additional occupation/education comments: Prior Occupation: [employer]. Gender identity (if verbalized by the patient): Male Spiritual care concerns: No Meds Home Medications and Allergies Home Medications Medication Instructions Recorded Confirmed Type apixaban 5 mg tablet 5 mg PO BID #180 tablet 12/06/19 02/05/22 Rx aspirin 81 mg tablet,delayed 81 mg PO DAILY 08/17/19 09/30/21 History release atorvastatin 40 mg tablet 40 mg PO DAILY 08/17/19 09/30/21 History carvedilol 12.5 mg tablet 12.5 mg PO Q12H 08/17/19 09/30/21 History pregabalin 100 mg capsule 100 mg PO TID 08/17/19 09/30/21 History tamsulosin 0.4 mg capsule 0.4 mg PO DAILY 08/17/19 09/30/21 History finasteride 5 mg tablet 5 mg PO DAILY tablet 10/20/19 09/30/21 History furosemide 40 mg tablet 40 mg PO QAM tablet 10/20/19 09/30/21 History tramadol 50 mg tablet 50 mg PO Q6H #90 each 01/04/20 09/30/21 Rx potassium chloride 20 mEq 40 meq PO DAILY #180 tablet 02/01/20 09/30/21 Rx tablet,extended release pantoprazole [Protonix] 40 mg PO QAM 56 Days #56 tablet 07/05/20 09/30/21 Rx Iron (ferrous sulfate) 325 mg PO DAILY 12/29/20 09/30/21 History allopurinol 100 mg PO DAILY 06/28/21 09/30/21 History guaifenesin [Mucus Relief ER] 600 mg PO Q12HR #30 tablet 06/29/21 09/30/21 Rx benzonatate 200 mg PO TID PRN 09/30/21 09/30/21 History trazodone 50 mg PO HS PRN 09/30/21 09/30/21 History amoxicillin 1,000 mg PO Q12H #20 tablet 10/01/21 Rx Allergies Allergy/AdvReac Type Severity Reaction Status Date / Time oxycodone [OxyContin] Allergy Unknown Hallucinati Verified 06/28/21 17:13 ng Sulfa (Sulfonamide Allergy Un
--- NOTE | 2021-09-30 18:00 | PC.NURSE ---
Patient reports he feels well, took oxygen off. SPO2 95% on room air.
[2021-10-01] VITALS: BP 116/68; PULSE 72; RESP 20; TEMP 35.6; O2SAT 92
[2021-10-01] MEDS: ACETAMINOPHEN 325 MG TABLET 650 MG PO (02:42)
[2021-10-01 04:00] VITALS: PULSE 70
[2021-10-01] MEDS: traMADol HCL (*CRX) 50 MG TABLET (04:04)
[2021-10-01 05:18] LABS: Basophils Absolute Auto 0.01 K/mm3 (0.00-0.10); Basophils Percent Auto 0.2 % (0.0-1.0); Eosinophils Absolute Auto 0.14 K/mm3 (0.02-0.50); Eosinophils Percent Auto 2.8 % (1.0-6.0); Hematocrit 28.6 % (37.0-46.0); Hemoglobin 9.8 g/dL (12.4-15.3); Immature Granulocyte Absolute 0.01 K/mm3 (0.00-0.00); Immature Granulocyte Percent A 0.2 % (0.0-0.0); Immature Platelet Fraction Pct 1.9 % (1.0-7.0); Lymphocytes Absolute Auto 0.82 K/mm3 (1.10-4.50); Lymphocytes Percent Auto 16.3 % (18.0-42.0); Mean Corpuscular HGB Conc 34.3 g/dL (32.0-36.0); Mean Corpuscular Hemoglobin 34.8 pg (27.0-31.0); Mean Corpuscular Volume 101.4 fL (78.0-102.0); Mean Platelet Volume 10.7 fl (8.7-11.0); Monocytes Absolute Auto 0.66 K/mm3 (0.10-0.90); Monocytes Percent Auto 13.1 % (2.0-11.0); Neutrophils Absolute Auto 3.4 K/mm3 (1.7-7.2); Neutrophils Percent Auto 67.4 % (50.0-70.0); Platelet Count Result 83 K/mm3 (150-420); Red Blood Count 2.82 M/mm3 (4.70-6.10)
[2021-10-01 05:28] LABS: Anion Gap 10 mmol/L (8-16); Blood Urea Nitrogen 37 mg/dL (7-18); Calcium 8.4 mg/dL (8.5-10.1); Carbon Dioxide 25 mmol/L (21-32); Chloride 104 mmol/L (98-108); Estimated CRCL calculation 26 ml/min; Estimated Glomerular Filt Rate 32; Glucose 149 mg/dL (70-99); Osmolality Calculated 299 mOsm/kg (285-295); Potassium 3.4 mmol/L (3.5-5.1); Sodium 139 mmol/L (136-145)
[2021-10-01 08:00] VITALS: BP 116/79; PULSE 70; RESP 20; TEMP 36.3; O2SAT 94
--- NOTE | 2021-10-01 09:07 | PM.DS ---
DS: Admitting Diagnosis Discharge Date 10/01/2021 Admitting Diagnosis Pneumonia, CHF DS: Discharge Diagnosis Discharge Diagnosis (1) Community acquired pneumonia: Code(s): J18.9 - Pneumonia, unspecified organism Status: Acute Assessment and Plan: Amoxicillin 1000 mg BID Continue to USe IS (2) CKD (chronic kidney disease) stage 4, GFR 15-29 ml/min: Code(s): N18.4 - Chronic kidney disease, stage 4 (severe) Status: Acute Assessment and Plan: --- avoid nephrotoxic -- follow up with PCP to have labs reviewed on kidney function (3) CHF (congestive heart failure): Code(s): I50.9 - Heart failure, unspecified Status: Acute Assessment and Plan: --Heart health diet --Spoke with Cardiology Dr. Nunez regarding patient to v tach episodes on 2 occasion less than 5 beats with and he is needing his pacemaker interrogated. Patient ICD Battery is low as well. --Patient was to follow up with Dr. Somers and has not his office will call and attempt to get a hold of patient in the morning or his family members. Patient is having no swelling and or shortness of breath noted. --BNP 2564...2035 DS: Summary Time Spent with Patient Time attestation: Total time spent providing and/or coordinating discharge services: DS: Data Data Completed and Pending Labs on day of discharge: Labs from last 24 hours 10/01/21 10/01/21 04:47 04:47 WBC 5.0 RBC 2.82 L Hgb 9.8 L Hct 28.6 L MCV 101.4 MCH 34.8 H MCHC 34.3 RDW 16.0 H Plt Count 83 L MPV 10.7 Immature Gran % (Auto) 0.2 H Neut % (Auto) 67.4 Lymph % (Auto) 16.3 L [place] % (Auto) 13.1 H Eos % (Auto) 2.8 Baso % (Auto) 0.2 Lymph # (Auto) 0.82 L [place] # (Auto) 0.66 Eos # (Auto) 0.14 Baso # (Auto) 0.01 Abs Immat Gran (auto) 0.01 H Absolute Neuts (auto) 3.4 Absolute Nucleated RBC 0.00 Nucleated RBC % 0.0 % Immature Plt Fraction 1.9 Sodium 139 Potassium 3.4 L Chloride 104 Carbon Dioxide 25 Anion Gap 10 BUN 37 H Creatinine 2.01 H Estim Creat Clear Calc 26 Estimated GFR 32 L Glucose 149 H Calculated Osmolality 299 H Calcium 8.4 L Preliminary micro results at discharge 09/30/21 08:18 Blood Culture - Preliminary Blood 09/30/21 08:00 Blood Culture - Preliminary Blood Discharge Plan Discharge Attending physician on discharge: Rajeev Bailey Consulting providers: Raisa Nunez Discharging Clinician: Kyleigh Everett Anticipated Discharge Date/Time: 10/01/21 10:53 Patient Disposition: Home, Self-Care Activity: december shower Diet: as tolerated and heart healthy Wound Care Instructions: follow printed instructions Discharge Instructions: Take medication as prescribed Follow up with Primary care Provider in 3-5 days Follow up With Dr. Somers Office they will call you You need to have your Pacemaker Interrogated Smoking Cessation if you smoke Continue to use your IS Patient Instructions: Antibiotic Form, Heart Failure (DC), Dementia (ED), Community Acquired Pneumonia (DC), Pacemaker (DC) Stand Alone Forms: General Discharge Information Follow-up/Referrals: Jarett Yousif MD [Physician] - (Call and schedule appointment and they will call you as well) Ruddy Yang MD [Primary Care Provider] - (f/u in 3-7 days) Discharge Medications: New amoxicillin 500 mg tablet 1,000 mg PO Q12H Qty: 20 RF: 0 Continued allopurinol 100 mg tablet 100 mg PO DAILY RF: 0 guaifenesin [Mucus Relief ER] 600 mg Tablet Extended Release 12hr 600 mg PO Q12HR Qty: 30 RF: 0 trazodone 50 mg tablet 50 mg PO HS PRN (Reason: Insomnia) RF: 0 benzonatate 100 mg capsule 200 mg PO TID PRN (Reason: Cough) RF: 0 tamsulosin [Flomax] 0.4 mg capsule 0.4 mg PO DAILY RF: 0 atorvastatin 40 mg tablet 40 mg PO DAILY RF: 0 pregabalin [Lyrica] 100 mg capsule 100 mg PO TID RF: 0
[2021-10-01] MEDS: PANTOPRAZOLE SODIUM IV 40 MG VIAL IV PUSH (09:20)
[2021-10-01 09:21] VITALS: PULSE 70
[2021-10-01] MEDS: carvediloL 12.5 MG TABLET PO (09:21)
[2021-10-01] MEDS: ASPIRIN 81 MG ENTERIC TABLET PO (09:21)
[2021-10-01] MEDS: POTASSIUM CHLORIDE 20 MEQ TABLET 40 MEQ PO (09:21)
[2021-10-01] MEDS: allopurinoL 100 MG TABLET PO (09:21)
[2021-10-01] MEDS: ATORVASTATIN 40 MG TABLET PO (09:22)
[2021-10-01] MEDS: TAMSULOSIN HCL 0.4 MG CAPSULE PO (09:22)
[2021-10-01] MEDS: FERROUS SULFATE 324 MG TABLET PO (09:22)
[2021-10-01] MEDS: PREGABALIN (*CRX) 100 MG CAPSULE PO (09:22)
[2021-10-01] MEDS: FINASTERIDE 5 MG TABLET PO (09:22)
[2021-10-01] MEDS: FUROSEMIDE 40 MG TABLET PO (09:22)
[2021-10-01] MEDS: APIXABAN 2.5 MG TABLET 5 MG PO (09:22)
[2021-10-01] MEDS: guaiFENesin 12 HR 600 MG TABCR PO (09:22)
[2021-10-01 09:31] LABS: NT Pro B Type Natriuretic Pept 2035 pg/mL (0-450)
[2021-10-01 12:00] VITALS: PULSE 70
--- NOTE | 2021-10-01 12:40 | PC.NURSE ---
Discharge instructions reviewed with patient, patient verbalizes understanding. Patient dressed himself. Assisted to wheelchair and escorted off floor. Patient's arrived to pick him up in private family vehicle.
--- NOTE | 2021-10-01 14:10 | PM.SD2 ---
Same Day Admit/Disch: HPI History of Present Illness Chief complaint: SOB Narrative: Jovan Rodas is a 81 year old male that presented to the emergency room with shortness of breath with exertion that has been going on for approximately 1 week. In the emergency room patient was found to have elevated BNP of 2564 currently 2034. 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 [facility] Past Medical History Medical History AAA (abdominal aortic aneurysm) Acute on chronic blood loss anemia Atrial fibrillation Bladder cancer CAD (coronary artery disease) Cardiac defibrillator in place CHF (congestive heart failure) CKD (chronic kidney disease), stage III COPD (chronic obstructive pulmonary disease) Erectile dysfunction REESE (generalized anxiety disorder) Gout High cholesterol Hypertension Myocardial infarction x3 KIARRA (obstructive sleep apnea) Patient stated that he does not Use CPAP Pacemaker Peripheral neuropathy PVD (peripheral vascular disease) Surgical History Surgical History AICD (automatic cardioverter/defibrillator) present History of aortic valve repair History of back surgery History of bladder surgery TURB procedure 2009 History of cholecystectomy History of coronary artery stent placement 2 stents History of heart valve replacement History of hernia repair incisional History of tonsillectomy and adenoidectomy History of transcatheter aortic valve replacement (TAVR) S/P CABG (coronary artery bypass graft) Four vessel CABG Status post placement of cardiac pacemaker Family History Family History Father Family history of aortic aneurysm Acute myocardial infarction Mother Parkinsons disease Social History Social History Social History: The patient stated that he quit smoking many years ago. The patient has 4 children. His is his durable power explosive operator fuse for healthcare. The patient is a full code. He is a former smoker. He denies any alcohol marijuana or illicit drugs. 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 Smoking packs per day: 2 Smoking cigarettes per day: 40.0 Years smoked: 45 Smoking pack-years: 90.00 Smoking status: Former smoker Second hand tobacco smoke exposure: No Alcohol intake: never Drinks per week: 3 Substance use: never Substance use type: does not use Additional living arrangements comments: . 4 Children. Additional occupation/education comments: Prior Occupation: [employer]. Gender identity (if verbalized by the patient): Male Spiritual care concerns: No Same Day Admit/Disch: Med Pre-admit Medications Home Medications Medication Instructions Recorded Confirmed Type apixaban 5 mg tablet 5 mg PO BID #180 tablet 07/31/19 09/30/21 Rx aspirin 81 mg tablet,delayed 81 mg PO DAILY 08/17/19 09/30/21 History release atorvastatin 40 mg tablet 40 mg PO DAILY 08/17/19 09/30/21 History carvedilol 12.5 mg tablet 12.5 mg PO Q12H 08/17/19 09/30/21 History pregabalin 100 mg capsule 100 mg PO TID 08/17/19 09/30/21 History tamsulosin 0.4 mg capsule 0.4 mg PO DAILY 08/17/19 09/30/21 History finasteride 5 mg tablet 5 mg PO DAILY tablet 10/20/19 09/30/21 History furosemide 40 mg tablet 40 mg PO QAM tablet 10/20/19 09/30/21 History tramadol 50 mg tablet 50 mg PO Q6H #90 each 01/04/20 09/30/21 Rx potassium chloride 20 mEq 40 meq PO DAILY #180 tablet 02/01/20 09/30/21 Rx tablet,extended release pantoprazole [Protonix] 40 mg PO QAM 56 Days #56 tablet 07/05/20 09/30/21 Rx Iron (ferrous sulfate) 325 mg PO DAILY 12/29/20 09/30/21 History allopurinol 100 mg PO DAILY 06/28/21 09/30/21 History guaifenesin [Mucus Relief ER] 600 mg PO Q12HR #30 tablet 06/29/21
--- NOTE | 2021-10-02 11:55 | PC.NURSE ---
Pt states he received and understood the discharge instructions. Pt also states everything was good .
== END 2021-10-01 12:40 | disposition home or self-care (01) | DRG 291 ==
LOC: CHSED 06:53 → CHS2ND 10-01 10:59
PROVIDERS: Nurse Practitioner Family; Admitting Provider Emergency Medicine; Emergency Provider Emergency Medicine; PCP Internal Medicine; Visit Provider Emergency Medicine
DX: I13.0 Hypertensive heart and chronic kidney disease with heart failure and stage 1 through stage 4 chronic kidney disease, or unspecified chronic kidney disease (principal); N18.30 Chronic kidney disease, stage 3 unspecified; I50.9 Heart failure, unspecified; J18.9 Pneumonia, unspecified organism; I71.4 Abdominal aortic aneurysm, without rupture; I48.20 Chronic atrial fibrillation, unspecified; I25.10 Atherosclerotic heart disease of native coronary artery without angina pectoris; J44.9 Chronic obstructive pulmonary disease, unspecified; I25.2 Old myocardial infarction; I73.9 Peripheral vascular disease, unspecified; E78.00 Pure hypercholesterolemia, unspecified; M10.9 Gout, unspecified; G62.9 Polyneuropathy, unspecified; G47.33 Obstructive sleep apnea (adult) (pediatric); F41.1 Generalized anxiety disorder; Z95.2 Presence of prosthetic heart valve; Z95.810 Presence of automatic (implantable) cardiac defibrillator; Z79.82 Long term (current) use of aspirin; Z95.5 Presence of coronary angioplasty implant and graft; Z95.1 Presence of aortocoronary bypass graft; Z87.891 Personal history of nicotine dependence; Z85.51 Personal history of malignant neoplasm of bladder
CPT/HCPCS: 36415; 36600; 71045; 71250; 80048; 80053; 81003; 82805; 83880; 84484; 85025; 85055; 87040; 87426; 93005; 96365; 96375; 99285; A9270; C9113; C9803; J0696; J1940

== ENCOUNTER 2021-12-18 08:38 | Emergency (ER) | payer MEDICARE, SELFPAY ==
--- NOTE | ~2021-12-18 | XR_ITS ---
EXAMINATION: XR chest 1V portable DATE: 12/18/2021 09:18 INDICATION: Shortness of breath. TECHNIQUE: A single frontal view of the chest was obtained. COMPARISON: Chest single view 09/30/2021, chest CT 09/30/2021 FINDINGS: There is a diffuse interstitial pattern, consistent with mild pulmonary edema. No pleural e ffusion or pneumothorax. The heart size is normal. There are changes of aortic valve replacement. The re is a left chest pacer with leads in right atrium, right ventricle, and coronary sinus. IMPRESSION: 1. Mild pulmonary edema. Reviewed, dictated and finalized at location A. IMPRESSION: 1. Mild pulmonary edema.
--- NOTE | 2021-12-18 08:56 | ECG_ITS ---
Measurements Intervals [place] Rate: 77 P: -77 SC: 87 QRS: -83 QRSD: 139 T: 53 QT: 419 QTc: 476 Interpretive Statements ATRIAL FIBRILLATION RIGHT BUNDLE BRANCH BLOCK [120+ ms QRS DURATION, UPRIGHT V1, 40+ ms S IN I/aVL/V4/V5/V6] CONSIDER INFERIOR MYOCARDIAL INFARCTION , OLD [40+ ms Q WAVE AND/OR ST/T ABNORMALITY IN II/aVF] COMPARED TO ECG 09/30/2021 05:45:48 NO SIGNIFICANT DIFFERENCE Electronically Signed On 12-18-2021 16:58:24 CDT by Jarett Yousif M.D.
[2021-12-18 09:00] VITALS: BP 145/95; PULSE 95; RESP 19; TEMP 36
--- NOTE | 2021-12-18 09:13 | ED.SOB ---
HPI - SOB/Dyspnea General Chief Complaint: Shortness of Breath/Dyspnea Stated Complaint: SOB Time Seen by Provider: 12/18/21 09:13 Source: patient and family Mode of arrival: ambulatory Limitations: no limitations History of Present Illness HPI Narrative: This is an 81-year-old gentleman with history of CHF atrial fibrillation with history of COPD presents with some shortness of breath started earlier this morning at about 1:00 a.m. patient states that he feels some little bit better, did not take any of his medication there is currently no cough no fever no chest pain, no fever chills no nausea vomiting or abdominal pain. MD elicited complaint: shortness of breath Pertinent past history: COPD and congestive heart failure Onset (ago): hour(s) Timing: improved Severity: moderate Related Data Home Medications Medication Instructions Recorded Confirmed aspirin 81 mg tablet,delayed 81 mg PO DAILY 08/17/19 09/30/21 release atorvastatin 40 mg tablet 40 mg PO DAILY 08/17/19 09/30/21 carvedilol 12.5 mg tablet 12.5 mg PO Q12H 08/17/19 09/30/21 pregabalin 100 mg capsule 100 mg PO TID 08/17/19 09/30/21 tamsulosin 0.4 mg capsule 0.4 mg PO DAILY 08/17/19 09/30/21 finasteride 5 mg tablet 5 mg PO DAILY tablet 10/20/19 09/30/21 furosemide 40 mg tablet 40 mg PO QAM tablet 10/20/19 09/30/21 Iron (ferrous sulfate) 325 mg PO DAILY 12/29/20 09/30/21 allopurinol 100 mg PO DAILY 06/28/21 09/30/21 trazodone 50 mg PO HS PRN 09/30/21 09/30/21 cilostazol 50 mg PO BID 12/18/21 12/18/21 Allergies Allergy/AdvReac Type Severity Reaction Status Date / Time oxycodone [OxyContin] Allergy Unknown Hallucinati Verified 12/18/21 09:03 ng Sulfa (Sulfonamide Allergy Unknown Rash Verified 12/18/21 09:03 Antibiotics) Review of Systems Review of Systems: All systems reviewed & are unremarkable except as noted in HPI and below PMFSH Past Medical History Medical History AAA (abdominal aortic aneurysm) Acute on chronic blood loss anemia Atrial fibrillation Bladder cancer CAD (coronary artery disease) Cardiac defibrillator in place CHF (congestive heart failure) CKD (chronic kidney disease), stage III COPD (chronic obstructive pulmonary disease) Erectile dysfunction REESE (generalized anxiety disorder) Gout High cholesterol Hypertension Myocardial infarction x3 KIARRA (obstructive sleep apnea) Patient stated that he does not Use CPAP Pacemaker Peripheral neuropathy PVD (peripheral vascular disease) Surgical History Surgical History AICD (automatic cardioverter/defibrillator) present History of aortic valve repair History of back surgery History of bladder surgery TURB procedure 2009 History of cholecystectomy History of coronary artery stent placement 2 stents History of heart valve replacement History of hernia repair incisional History of tonsillectomy and adenoidectomy History of transcatheter aortic valve replacement (TAVR) S/P CABG (coronary artery bypass graft) Four vessel CABG Status post placement of cardiac pacemaker Family History Family History Father Family history of aortic aneurysm Acute myocardial infarction Mother Parkinsons disease Social History Social History Social History: The patient stated that he quit smoking many years ago. The patient has 4 children. His is his durable power managing attorney for healthcare. The patient is a full code. He is a former smoker. He denies any alcohol marijuana or illicit drugs. 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 Smoking packs per day: 2 Smoking cigarettes per day: 40.0 Years smoked: 45 Smoking pack-years: 90.00 Smoking status: Former smoker Second hand tobacco smoke exposure: No Alcohol intake: n
[2021-12-18 09:34] LABS: Basophils Absolute Auto 0.03 K/mm3 (0.00-0.10); Basophils Percent Auto 0.4 % (0.0-1.0); Eosinophils Absolute Auto 0.05 K/mm3 (0.02-0.50); Eosinophils Percent Auto 0.6 % (1.0-6.0); Hematocrit 35.5 % (37.0-46.0); Hemoglobin 11.8 g/dL (12.4-15.3); Immature Granulocyte Absolute 0.02 K/mm3 (0.00-0.00); Immature Granulocyte Percent A 0.2 % (0.0-0.0); Lymphocytes Absolute Auto 0.57 K/mm3 (1.10-4.50); Mean Corpuscular HGB Conc 33.2 g/dL (32.0-36.0); Mean Corpuscular Hemoglobin 33.7 pg (27.0-31.0); Mean Corpuscular Volume 101.4 fL (78.0-102.0); Mean Platelet Volume 10.6 fl (8.7-11.0); Monocytes Absolute Auto 0.55 K/mm3 (0.10-0.90); Monocytes Percent Auto 6.7 % (2.0-11.0); Neutrophils Absolute Auto 6.9 K/mm3 (1.7-7.2); Neutrophils Percent Auto 85.1 % (50.0-70.0); Platelet Count Result 100 K/mm3 (150-420); Red Cell Distribution Width 15.8 % (11.6-14.4); White Blood Count 8.2 K/mm3 (4.8-10.8)
[2021-12-18 09:43] VITALS: PULSE 77; RESP 20; O2SAT 97
[2021-12-18] MEDS: IPRATROPIUM 0.5 MG/ALBUTEROL SULFATE 2.5 MG AMPUL.NEB 3 ML INHALATION (09:43)
[2021-12-18] MEDS: FUROSEMIDE INJ 40 MG/4 ML VIAL IV PUSH (09:44)
[2021-12-18 09:48] LABS: INR 1.2; Partial Thromboplastin Time 33.9 SEC (23.90-30.70); Prothrombin Time 12.8 Seconds (9.50-12.10)
[2021-12-18 09:54] LABS: Lactic Acid Reflex 1.1 mmol/L (0.4-2.0)
[2021-12-18 09:55] LABS: Alanine Aminotransferase 17 U/L (16-63); Albumin Level 3.6 g/dL (3.4-5.0); Alkaline Phosphatase 40 U/L (46-116); Anion Gap 6 mmol/L (8-16); Aspartate Amino Transferase 17 U/L (15-37); Bilirubin,Total 1.1 mg/dL (0.00-1.00); Blood Urea Nitrogen 22 mg/dL (7-18); Calcium 8.4 mg/dL (8.5-10.1); Carbon Dioxide 30 mmol/L (21-32); Chloride 104 mmol/L (98-108); Estimated Glomerular Filt Rate 37; Glucose 124 mg/dL (70-99); Magnesium 2.3 mg/dL (1.8-2.4); NT Pro B Type Natriuretic Pept 2870 pg/mL (0-450); Osmolality Calculated 294 mOsm/kg (285-295); Potassium 3.7 mmol/L (3.5-5.1); Sodium 140 mmol/L (136-145); Total Protein 7.5 g/dL (6.4-8.2); Troponin I 22.7 ng/L (0.00-60.4)
[2021-12-18 10:00] VITALS: PULSE 80; RESP 20; O2SAT 100
[2021-12-18 10:21] VITALS: BP 166/76; PULSE 78; RESP 18; TEMP 37; O2SAT 98
== END 2021-12-18 10:35 | disposition home or self-care (01) ==
PROVIDERS: Emergency Provider Emergency Medicine; PCP Internal Medicine
DX: I50.42 Chronic combined systolic (congestive) and diastolic (congestive) heart failure (principal); I48.91 Unspecified atrial fibrillation; I25.10 Atherosclerotic heart disease of native coronary artery without angina pectoris; J44.9 Chronic obstructive pulmonary disease, unspecified; I10 Essential (primary) hypertension; Z87.891 Personal history of nicotine dependence
CPT/HCPCS: 36415; 71045; 80053; 83605; 83735; 83880; 84484; 85025; 85610; 85730; 87040; 93005; 94640; 96374; 99284; J1940

== ENCOUNTER 2022-02-08 11:06 | Emergency (ER) | payer MEDICARE, SELFPAY ==
--- NOTE | ~2022-02-08 | CT_ITS ---
EXAMINATION: CTA chest PE protocol DATE: 02/08/2022 12:32 INDICATION: Shortness of breath. Cough. TECHNIQUE: Computed tomography angiography (CTA) of the chest was performed with 100 mL Omnipaque-350 intravenous contrast timed to evaluate the pulmonary arteries. Coronal maximum intensity projection 3D-reconstructions were created by the technologist. Automated exposure control and iterative reconst ruction technique were employed. The dose-length product was 557.25 mGy-cm. COMPARISON: Chest CT 09/30/2021, CT abdomen and pelvis 12/30/20 FINDINGS: The lungs demonstrate smooth septal thickening, consistent with mild pulmonary edema. There are small pleural effusions with chronic pleural thickening and enhancement on the left. There is mi ld dependent atelectasis bilaterally. There is peripheral rounded atelectasis in left lower lobe. James cified right lung nodules and calcified right hilar lymph nodes are consistent with old granulomatous disease. There is left atrial enlargement of the heart. There are changes of aortic valve replacemen t. There is a left chest pacer with leads in right atrium, right ventricle, and coronary sinus. There are changes of coronary artery bypass grafting. There are coronary artery calcifications. There is n o pulmonary embolus. Partially visualized is a fusiform aneurysm of abdominal aorta measuring 5.7 cm . There is mild atrophy of left kidney. There is mild thoracic spondylosis. IMPRESSION: 1. No pulmonary embolus. 2. Mild pulmonary edema with worsened small pleural effusions. Chronic left-sided pleural thickening suggests a left-sided exudate. 3. Stable 5.7 cm fusiform aneurysm of suprarenal abdominal aorta. Reviewed, dictated and finalized at location B. IMPRESSION: 1. No pulmonary embolus. 2. Mild pulmonary edema with worsened small pleural effusions. Chronic left-zaira ed pleural thickening suggests a left-sided exudate. 3. Stable 5.7 cm fusiform aneurysm of suprarenal abdominal aorta.
--- NOTE | ~2022-02-08 | XR_ITS ---
XR chest 2V 02/08/2022 11:52 Indication: Shortness of breath Procedure: 2 view chest Comparison: Comparison to multiple prior studies sequentially, with oldest reviewed study dated 10/2020. Findings: Status post median sternotomy for CABG. Cardiomegaly with interstitial edema. Small left pl eural effusion. Stable position to pacemaker leads. Impression: 1: Cardiomegaly with mild interstitial edema. 2: Small left pleural effusion. Reviewed, dictated and finalized at location A. Impression: 1: Cardiomegaly with mild interstitial edema. 2: Small left pleural effusion.
[2022-02-08 11:22] VITALS: BP 121/57; PULSE 81; RESP 16; TEMP 36.6; O2SAT 95
--- NOTE | 2022-02-08 11:25 | ECG_ITS ---
Measurements Intervals [place] Rate: 70 P: [place]: 0 QRS: -50 QRSD: 144 T: 47 QT: 473 QTc: 513 Interpretive Statements ELECTRONIC VENTRICULAR PACEMAKER ATYPICAL ECG COMPARED TO ECG 12/18/2021 09:10:39 NO SIGNIFICANT CHANGES Electronically Signed On 02-08-2022 12:50:29 CDT by Arpan Rajan M.D.
[2022-02-08] MEDS: IPRATROPIUM 0.5 MG/ALBUTEROL SULFATE 2.5 MG AMPUL.NEB 3 ML INHALATION (11:37)
[2022-02-08 11:38] VITALS: PULSE 70; RESP 16; O2SAT 93
[2022-02-08 11:42] VITALS: PULSE 70; RESP 16; O2SAT 100
[2022-02-08 11:43] VITALS: O2SAT 95
--- NOTE | 2022-02-08 11:43 | PC.NURSE ---
patient taken to xray
[2022-02-08 11:45] LABS: Basophils Absolute Auto 0.01 K/mm3 (0.00-0.10); Basophils Percent Auto 0.2 % (0.0-1.0); Eosinophils Percent Auto 2.3 % (1.0-6.0); Hematocrit 30.6 % (37.0-46.0); Immature Granulocyte Absolute 0.01 K/mm3 (0.00-0.00); Immature Granulocyte Percent A 0.2 % (0.0-0.0); Immature Platelet Fraction Pct 1.8 % (1.0-7.0); Lymphocytes Absolute Auto 0.59 K/mm3 (1.10-4.50); Lymphocytes Percent Auto 13.7 % (18.0-42.0); Mean Corpuscular HGB Conc 32.7 g/dL (32.0-36.0); Mean Corpuscular Hemoglobin 33.6 pg (27.0-31.0); Mean Corpuscular Volume 102.7 fL (78.0-102.0); Mean Platelet Volume 10.4 fl (8.7-11.0); Monocytes Absolute Auto 0.44 K/mm3 (0.10-0.90); Monocytes Percent Auto 10.2 % (2.0-11.0); Neutrophils Absolute Auto 3.2 K/mm3 (1.7-7.2); Neutrophils Percent Auto 73.4 % (50.0-70.0); Platelet Count Result 84 K/mm3 (150-420); Red Blood Count 2.98 M/mm3 (4.70-6.10); Red Cell Distribution Width 15.8 % (11.6-14.4); White Blood Count 4.3 K/mm3 (4.8-10.8)
[2022-02-08 11:58] LABS: INR 1.3; Prothrombin Time 14.1 Seconds (9.50-12.10)
[2022-02-08 11:59] LABS: D Dimer 3.16 mg/L (0.19-0.50)
[2022-02-08] MEDS: methylPREDNISolone SOD SUCC 125 MG VIAL IV PUSH (12:03)
[2022-02-08 12:06] LABS: Alanine Aminotransferase 16 U/L (16-63); Albumin Level 3.3 g/dL (3.4-5.0); Alkaline Phosphatase 42 U/L (46-116); Anion Gap 6 mmol/L (8-16); Aspartate Amino Transferase 15 U/L (15-37); Blood Urea Nitrogen 25 mg/dL (7-18); Calcium 8.3 mg/dL (8.5-10.1); Carbon Dioxide 27 mmol/L (21-32); Chloride 106 mmol/L (98-108); Estimated Glomerular Filt Rate 35; Glucose 172 mg/dL (70-99); Magnesium 2.1 mg/dL (1.8-2.4); NT Pro B Type Natriuretic Pept 2076 pg/mL (0-450); Osmolality Calculated 296 mOsm/kg (285-295); Potassium 3.7 mmol/L (3.5-5.1); Sodium 139 mmol/L (136-145); Troponin I 20.4 ng/L (0.00-60.4)
--- NOTE | 2022-02-08 12:33 | ED.SOB ---
HPI - SOB/Dyspnea General Chief Complaint: Shortness of Breath/Dyspnea Stated Complaint: sob Oxygen 89% Source: patient Mode of arrival: ambulatory Limitations: no limitations History of Present Illness HPI Narrative: This an 81-year-old gentleman that presents from his doctor's office with O2 sats at his doctor's office at 89% room air the patient has a history of COPD/CHF atrial fibrillation. The patient apparently for the last 4 days has been having dyspnea mainly with exertion, with no fever chills no chest pain no flank pain no abdominal pain no nausea or vomiting patient denies having a cough. His O2 sats here in the emergency department have been running 94-95 on room air patient appears comfortable, although does have shortness of breath with exertion. MD elicited complaint: shortness of breath Pertinent past history: COPD and congestive heart failure Onset (ago): day(s) Context: occurred during exertion Timing: intermittent Severity: moderate Exacerbating factors: exertion Relieving factors: rest Known history of: COPD Treatment prior to arrival: none Related Data Home Medications Medication Instructions Recorded Confirmed aspirin 81 mg tablet,delayed 81 mg PO DAILY 08/17/19 02/08/22 release (Adult Low Dose Aspirin) atorvastatin 40 mg tablet 40 mg PO DAILY 08/17/19 02/08/22 carvedilol 12.5 mg tablet (Coreg) 12.5 mg PO Q12H 08/17/19 02/08/22 pregabalin 100 mg capsule (Lyrica) 100 mg PO TID 08/17/19 02/08/22 tamsulosin 0.4 mg capsule (Flomax) 0.4 mg PO DAILY 08/17/19 02/08/22 finasteride 5 mg tablet 5 mg PO DAILY 10/20/19 02/08/22 furosemide 40 mg tablet 40 mg PO QAM 10/20/19 02/08/22 Iron (ferrous sulfate) 325 mg PO DAILY 12/29/20 02/08/22 allopurinol 100 mg tablet 100 mg PO DAILY 06/28/21 02/08/22 trazodone 50 mg tablet 50 mg PO HS PRN Insomnia 09/30/21 02/08/22 cilostazol 50 mg tablet 50 mg PO BID 12/18/21 02/08/22 Allergies Allergy/AdvReac Type Severity Reaction Status Date / Time oxycodone [OxyContin] Allergy Unknown Hallucinati Verified 06/16/22 11:28 ng Sulfa (Sulfonamide Allergy Unknown Rash Verified 02/08/22 11:28 Antibiotics) Review of Systems Review of Systems: All systems reviewed & are unremarkable except as noted in HPI and below PMFSH Past Medical History Medical History AAA (abdominal aortic aneurysm) Acute on chronic blood loss anemia Atrial fibrillation Bladder cancer CAD (coronary artery disease) Cardiac defibrillator in place CHF (congestive heart failure) CKD (chronic kidney disease), stage III COPD (chronic obstructive pulmonary disease) Erectile dysfunction REESE (generalized anxiety disorder) Gout High cholesterol Hypertension Myocardial infarction x3 KIARRA (obstructive sleep apnea) Patient stated that he does not Use CPAP Pacemaker Peripheral neuropathy PVD (peripheral vascular disease) Surgical History Surgical History AICD (automatic cardioverter/defibrillator) present History of aortic valve repair History of back surgery History of bladder surgery TURB procedure 2009 History of cholecystectomy History of coronary artery stent placement 2 stents History of heart valve replacement History of hernia repair incisional History of tonsillectomy and adenoidectomy History of transcatheter aortic valve replacement (TAVR) S/P CABG (coronary artery bypass graft) Four vessel CABG Status post placement of cardiac pacemaker Family History Family History Father Family history of aortic aneurysm Acute myocardial infarction Mother Parkinsons disease Social History Social History Social History: The patient stated that he quit smoking many years ago. The patient has 4 children. His is his durable power personal injury attorney for [employer]
--- NOTE | 2022-02-08 12:56 | PC.NURSE ---
patient is refusing admission to hospital. erp has explained all the risk and benefits of admission, patient is refusing and wants to sign out AMA. erp has spoke with patient again and he agrees to lasix prior to leaving. patient ambulatory to bathroom and back to ED room 1.
[2022-02-08] MEDS: FUROSEMIDE INJ 40 MG/4 ML VIAL IV PUSH (12:58)
[2022-02-08 13:04] VITALS: BP 156/91; PULSE 78; RESP 16; TEMP 36.4; O2SAT 96
[2022-02-08 13:05] VITALS: BP 156/91; PULSE 78; RESP 16; TEMP 36.2; O2SAT 96
== END 2022-02-08 13:12 | disposition left against medical advice (07) ==
PROVIDERS: Emergency Provider Emergency Medicine; PCP Internal Medicine
DX: I50.9 Heart failure, unspecified (principal); I48.91 Unspecified atrial fibrillation; I25.10 Atherosclerotic heart disease of native coronary artery without angina pectoris; I12.9 Hypertensive chronic kidney disease with stage 1 through stage 4 chronic kidney disease, or unspecified chronic kidney disease; N18.30 Chronic kidney disease, stage 3 unspecified; F41.9 Anxiety disorder, unspecified; E78.00 Pure hypercholesterolemia, unspecified; I73.9 Peripheral vascular disease, unspecified; Z87.891 Personal history of nicotine dependence
CPT/HCPCS: 36415; 71046; 71275; 80053; 83735; 83880; 84484; 85025; 85055; 85380; 85610; 85730; 93005; 94640; 96374; 96375; 99284; J1940; J2930; Q9967

== ENCOUNTER 2022-05-15 15:22 | Emergency (ER) | payer MEDICARE, SELFPAY ==
[2022-05-15] VITALS (48 sets, daily range): BP systolic 110–146; BP diastolic 55–97; PULSE 69–82; RESP 12–36; TEMP 35.6–36.6; O2SAT 76–100
--- NOTE | ~2022-05-15 | XR_ITS ---
XR abdomen obstructive series DATE: 05/15/2022 16:17 INDICATION: Anemia TECHNIQUE: Supine and upright AP views of the abdomen COMPARISON: 12/30/2020 CT chest abdomen pelvis FINDINGS: There is levoscoliosis and multilevel degenerative disc disease of the lumbar spine. There is osteopenia. Triple lead left-sided pacemaker device. Status post aortic valve stent placement. The lung bases are clear. Status post cholecystectomy. The psoas shadows are intact. No apparent visceromegaly. Aortic and iliac and femoral arterial calcifications. There are nondilated gas containing small bowel segments overlying the left and mid abdomen in partic ular. No bowel obstruction or intraperitoneal free air is evident. IMPRESSION: Nonspecific abdomen Reviewed, dictated and finalized at Location [facility]. Reviewed, dictated and finalized at location B. IMPRESSION: Nonspecific abdomen
--- NOTE | 2022-05-15 15:55 | ED.GIBLEED ---
HPI - GI Bleed General Chief complaint: GI Bleed Stated complaint: transfusion Time Seen by Provider: 05/15/22 15:39 Source: patient Mode of arrival: ambulatory Limitations: no limitations History of Present Illness HPI Narrative: PATIENT IS AN 82-YEAR-OLD WHITE MALE BROUGHT TO EMERGENCY ROOM BY HIS PRIMARY CARE PROVIDER'S NURSE AFTER LABS DONE YESTERDAY SHOWED SEVERE ANEMIA. PATIENT STATES THAT PHYSICIAN DID A RECTAL EXAM AND SAID HE HAD BLOOD IN HIS STOOL HE WANTED HIM TO GO TO THE EMERGENCY ROOM TO GET BLOOD TRANSFUSION. HE SAYS HE HAS BEEN A LITTLE LIGHTHEADED HE IS ON IRON AND HIS STOOLS HAVE BEEN BLACK. ANY HISTORY OF EGD AND A COLONOSCOPY A YEAR AGO WHICH WAS NEGATIVE HE HAS BEEN ON IRON FOR OVER A YEAR. DENIES ANY CHEST OR BACK PAIN OR BELLY PAIN OR ANY PAIN. DENIES ANY COUGH NAUSEA VOMITING OR DIARRHEA SAYS IT HAS BEEN A COUGH CONSTIPATED. Related Data Home Medications Medication Instructions Recorded Confirmed aspirin 81 mg tablet,delayed 81 mg PO DAILY 08/17/19 05/15/22 release (Adult Low Dose Aspirin) atorvastatin 40 mg tablet 40 mg PO DAILY 08/17/19 05/15/22 carvedilol 12.5 mg tablet (Coreg) 12.5 mg PO Q12H 08/17/19 05/15/22 pregabalin 100 mg capsule (Lyrica) 100 mg PO TID 08/17/19 05/15/22 tamsulosin 0.4 mg capsule (Flomax) 0.4 mg PO DAILY 08/17/19 05/15/22 finasteride 5 mg tablet 5 mg PO DAILY 10/20/19 05/15/22 furosemide 40 mg tablet 40 mg PO QAM 10/20/19 05/15/22 Iron (ferrous sulfate) 325 mg PO DAILY 12/29/20 05/15/22 allopurinol 100 mg tablet 100 mg PO DAILY 06/28/21 05/15/22 trazodone 50 mg tablet 50 mg PO HS PRN Insomnia 09/30/21 05/15/22 cilostazol 50 mg tablet 50 mg PO BID 12/18/21 05/15/22 Allergies Allergy/AdvReac Type Severity Reaction Status Date / Time oxycodone [OxyContin] Allergy Unknown Hallucinati Verified 05/15/22 15:46 ng Sulfa (Sulfonamide Allergy Unknown Rash Verified 05/15/22 15:46 Antibiotics) Review of Systems Review of Systems: All systems reviewed & are unremarkable except as noted in HPI and below Respiratory: Respiratory: Reports dyspnea Gastrointestinal: Gastrointestinal: Reports as per HPI, Denies abdominal pain, Reports constipation, Denies heartburn, Denies diarrhea, Denies nausea and Denies vomiting PMFSH Past Medical History Medical History AAA (abdominal aortic aneurysm) Acute on chronic blood loss anemia Atrial fibrillation Bladder cancer CAD (coronary artery disease) Cardiac defibrillator in place CHF (congestive heart failure) CKD (chronic kidney disease), stage III COPD (chronic obstructive pulmonary disease) Erectile dysfunction REESE (generalized anxiety disorder) Gout High cholesterol Hypertension Myocardial infarction x3 KIARRA (obstructive sleep apnea) Patient stated that he does not Use CPAP Pacemaker Peripheral neuropathy PVD (peripheral vascular disease) Surgical History Surgical History AICD (automatic cardioverter/defibrillator) present History of aortic valve repair History of back surgery History of bladder surgery TURB procedure 2009 History of cholecystectomy History of coronary artery stent placement 2 stents History of heart valve replacement History of hernia repair incisional History of tonsillectomy and adenoidectomy History of transcatheter aortic valve replacement (TAVR) S/P CABG (coronary artery bypass graft) Four vessel CABG Status post placement of cardiac pacemaker Family History Family History Father Family history of aortic aneurysm Acute myocardial infarction Mother Parkinsons disease Social History Social History Social History: The patient stated that he quit smoking many years ago. The patient has 4 children. His is his durable power securities attorney for [employer]
[2022-05-15 16:08] LABS: Basophils Absolute Auto 0.02 K/mm3 (0.00-0.10); Basophils Percent Auto 0.4 % (0.0-1.0); Eosinophils Absolute Auto 0.05 K/mm3 (0.02-0.50); Immature Granulocyte Absolute 0.02 K/mm3 (0.00-0.00); Immature Granulocyte Percent A 0.4 % (0.0-0.0); Lymphocytes Absolute Auto 0.68 K/mm3 (1.10-4.50); Lymphocytes Percent Auto 13.6 % (18.0-42.0); Mean Corpuscular HGB Conc 31.1 g/dL (32.0-36.0); Mean Corpuscular Hemoglobin 33.5 pg (27.0-31.0); Mean Corpuscular Volume 107.8 fL (78.0-102.0); Monocytes Absolute Auto 0.44 K/mm3 (0.10-0.90); Monocytes Percent Auto 8.8 % (2.0-11.0); Neutrophils Absolute Auto 3.8 K/mm3 (1.7-7.2); Neutrophils Percent Auto 75.8 % (50.0-70.0); Nucleated Red Blood Cells Absolute Auto 0.02 K/mm3 (0.00-0.00); Nucleated Red Blood Cells Perc 0.4 % (0-0.0); Platelet Count Result 106 K/mm3 (150-420); Red Blood Count 1.67 M/mm3 (4.70-6.10); Red Cell Distribution Width 20.2 % (11.6-14.4)
[2022-05-15 16:16] LABS: Hemoglobin 5.6 g/dL (12.4-15.3)
[2022-05-15] MEDS: SODIUM CHLORIDE 0.9% IV 1,000 ML 999 ML IV CONT (16:20)
[2022-05-15] MEDS: PANTOPRAZOLE SODIUM IV 40 MG VIAL 80 MG IV PUSH (16:21)
[2022-05-15 16:23] LABS: INR 1.2; Partial Thromboplastin Time 27.1 SEC (23.90-30.70)
[2022-05-15 16:28] LABS: Alanine Aminotransferase 13 U/L (16-63); Albumin Level 3.2 g/dL (3.4-5.0); Alkaline Phosphatase 41 U/L (46-116); Anion Gap 7 mmol/L (8-16); Aspartate Amino Transferase 11 U/L (15-37); Bilirubin,Total 0.4 mg/dL (0.00-1.00); Blood Urea Nitrogen 46 mg/dL (7-18); Calcium 8.1 mg/dL (8.5-10.1); Carbon Dioxide 27 mmol/L (21-32); Chloride 103 mmol/L (98-108); Estimated CRCL calculation 26 ml/min; Estimated Glomerular Filt Rate 34; Glucose 157 mg/dL (70-99); Osmolality Calculated 298 mOsm/kg (285-295); Potassium 3.3 mmol/L (3.5-5.1); Sodium 137 mmol/L (136-145); Total Protein 6.2 g/dL (6.4-8.2)
[2022-05-15 16:33] LABS: Troponin I 15.8 ng/L (0.00-60.4)
--- NOTE | 2022-05-15 16:50 | PC.NURSE ---
Care of pt resumed and report received. Pt is alert upon assessment and answers questions appropriately. Pt wants to transfer to [facility] for care per pt and family request but upon calling there is no GI specialist available. Will try other facilities for transfer.
--- NOTE | 2022-05-15 17:00 | PC.NURSE ---
Consent for blood transfusion signed, pt wishes to go to [facility] in [place], call for transfer made and they have no beds available, call placed to [facility] in [place] and awaiting call back.
[2022-05-15] MEDS: SODIUM CHLORIDE 0.9% IV 250 ML 30 ML IV CONT (17:09)
--- NOTE | 2022-05-15 17:18 | PC.NURSE ---
Blood transfusion started per protocol, call back received from [facility] for transfer, paperwork for transfer signed.
--- NOTE | 2022-05-15 18:06 | PC.NURSE ---
Pt resting comfortably, assisted c SBA to use urinal. Back to bed, VSS, awaiting call back from [facility] for bed assignment.
[2022-05-15 18:39] LABS: Hematocrit 21.9 % (37.0-46.0)
[2022-05-15 18:40] LABS: Hemoglobin 6.9 g/dL (12.4-15.3)
--- NOTE | 2022-05-15 19:17 | PC.NURSE ---
Call placed to [facility], bed assigned for pt to go to ICU A2, awaiting to give report.
--- NOTE | 2022-05-15 19:28 | PC.NURSE ---
Pt receiving 2nd Unit of blood before transferring, report given to Beryl at [facility].
[2022-05-15] MEDS: SODIUM CHLORIDE 0.9% IV 1,000 ML 120 ML IV CONT (20:23)
[2022-05-15 20:25] LABS: Hematocrit 23.6 % (37.0-46.0); Hemoglobin 7.5 g/dL (12.4-15.3)
--- NOTE | 2022-05-15 20:26 | PC.NURSE ---
2nd unit of blood infused, call placed to [facility] for pt transfer. Pt is A&O x3 and color has improved, skin color pink, warm and dry, VSS.
--- NOTE | 2022-05-15 20:45 | PC.NURSE ---
Report given to [facility] and pt loaded for transfer s difficulty.
== END 2022-05-15 20:52 | disposition short-term general hospital (02) ==
PROVIDERS: Emergency Provider Emergency Medicine; PCP Internal Medicine
DX: K92.2 Gastrointestinal hemorrhage, unspecified (principal); D64.89 Other specified anemias; I48.91 Unspecified atrial fibrillation; I25.10 Atherosclerotic heart disease of native coronary artery without angina pectoris; I50.9 Heart failure, unspecified; N18.30 Chronic kidney disease, stage 3 unspecified; E78.00 Pure hypercholesterolemia, unspecified; I12.9 Hypertensive chronic kidney disease with stage 1 through stage 4 chronic kidney disease, or unspecified chronic kidney disease; Z87.891 Personal history of nicotine dependence
CPT/HCPCS: 36415; 36430; 74019; 80053; 84484; 85014; 85018; 85025; 85610; 85730; 86850; 86900; 86901; 86920; 96361; 96374; 96375; 99285; C9113; J7030; J7050; P9016

== ENCOUNTER 2022-05-24 10:49 | Outpatient (CLI) | payer MEDICARE, SELFPAY ==
[2022-05-24 11:08] LABS: Basophils Absolute Auto 0.02 K/mm3 (0.00-0.10); Basophils Percent Auto 0.5 % (0.0-1.0); Eosinophils Absolute Auto 0.12 K/mm3 (0.02-0.50); Eosinophils Percent Auto 2.8 % (1.0-6.0); Hematocrit 28.4 % (37.0-46.0); Immature Granulocyte Absolute 0.02 K/mm3 (0.00-0.00); Immature Granulocyte Percent A 0.5 % (0.0-0.0); Immature Platelet Fraction Pct 1.8 % (1.0-7.0); Lymphocytes Absolute Auto 0.71 K/mm3 (1.10-4.50); Lymphocytes Percent Auto 16.7 % (18.0-42.0); Mean Corpuscular HGB Conc 31.7 g/dL (32.0-36.0); Mean Corpuscular Hemoglobin 31.1 pg (27.0-31.0); Mean Corpuscular Volume 98.3 fL (78.0-102.0); Mean Platelet Volume 10.5 fl (8.7-11.0); Monocytes Absolute Auto 0.59 K/mm3 (0.10-0.90); Monocytes Percent Auto 13.9 % (2.0-11.0); Neutrophils Absolute Auto 2.8 K/mm3 (1.7-7.2); Neutrophils Percent Auto 65.6 % (50.0-70.0); Platelet Count Result 98 K/mm3 (150-420); Red Blood Count 2.89 M/mm3 (4.70-6.10); Red Cell Distribution Width 18.7 % (11.6-14.4); White Blood Count 4.2 K/mm3 (4.8-10.8)
[2022-05-24 11:28] LABS: Anion Gap 7 mmol/L (8-16); Blood Urea Nitrogen 21 mg/dL (7-18); Calcium 8.7 mg/dL (8.5-10.1); Carbon Dioxide 30 mmol/L (21-32); Chloride 107 mmol/L (98-108); Estimated Glomerular Filt Rate 43; Glucose 111 mg/dL (70-99); Iron 33 ug/dL (65-175); NT Pro B Type Natriuretic Pept 3730 pg/mL (0-450); Osmolality Calculated 302 mOsm/kg (285-295); Potassium 3.6 mmol/L (3.5-5.1); Sodium 144 mmol/L (136-145)
== END 2022-05-24 10:50 | disposition home or self-care (01) ==
PROVIDERS: PCP Internal Medicine; Visit Provider Internal Medicine
DX: I50.9 Heart failure, unspecified (principal); D64.9 Anemia, unspecified
CPT/HCPCS: 36415; 80048; 83540; 83880; 85025; 85055

== ENCOUNTER 2022-05-26 07:21 | Emergency (ER) | payer MEDICARE, SELFPAY ==
--- NOTE | ~2022-05-26 | CT_ITS ---
EXAMINATION: CT chest abdomen pelvis wo con DATE: 05/26/2022 09:13 INDICATION: Abdominal pain. Shortness of breath. TECHNIQUE: Computed tomography (CT) of the chest, abdomen, and pelvis was performed without intraveno us contrast. Automated exposure control and iterative reconstruction technique were employed. The dos e-length product was 751.65 mGy-cm. COMPARISON: Chest CT 02/08/2022, CT abdomen and pelvis 03/24/14, CT 12/30/2020 FINDINGS: CHEST CT: There is diffuse smooth septal thickening in the lungs. There are small pleural effusions. Again seen is pleural thickening on the left. There is dependent atelectasis bilaterally. A calcified right char g nodule and calcified right hilar lymph nodes are consistent with old granulomatous disease. Cardiom egaly is noted. There are changes of aortic valve replacement. There are coronary artery calcificatio ns. There are changes of coronary artery bypass grafting. There is a left chest pacer with leads in r ight atrium, right ventricle, and coronary sinus. There is mild mediastinal lymphadenopathy, likely r eactive. There is mild thoracic spondylosis. ABDOMEN/PELVIS CT: The liver and spleen are normal. There are changes of cholecystectomy. The pancreas and adrenal gland s are normal. There is cortical thinning of the kidneys. There are cysts in the kidneys measuring up to 6.7 cm on the right. There is an 11 mm hemorrhagic cyst in left kidney. 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 There i s diverticulosis of the colon without evidence of diverticulitis. There are no dilated loops of bowel . The appendix is not visualized. There are no pathologically enlarged lymph nodes. There are bilater al inguinal hernias containing fat. There is no free intraperitoneal fluid. There is lumbar levoscoli osis and severe spondylosis. IMPRESSION: 1. Mild pulmonary edema. 2. Small pleural effusions. 3. 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 Reviewed, dictated and finalized at location A.
--- NOTE | ~2022-05-26 | XR_ITS ---
EXAMINATION: XR chest 1V portable DATE: 05/26/2022 08:16 INDICATION: Shortness of breath. TECHNIQUE: A single frontal view of the chest was obtained. COMPARISON: Chest 2 views 02/08/2022 FINDINGS: There is a diffuse interstitial pattern, consistent with pulmonary edema. There are small p leural effusions. No pneumothorax. Cardiomegaly is noted. There are changes of aortic valve replaceme nt. Median sternotomy wires and mediastinal surgical clips are seen, likely from prior coronary arter y bypass grafting. There is a left chest pacer/defibrillator with leads in right atrium, right ventri tessa, and coronary sinus. IMPRESSION: 1. Mild pulmonary edema. 2. Small pleural effusions. 3. Cardiomegaly. Reviewed, dictated and finalized at location A.
[2022-05-26 07:30] VITALS: BP 176/92; PULSE 83; RESP 15; TEMP 36.3; O2SAT 98
--- NOTE | 2022-05-26 07:44 | ECG_ITS ---
Measurements Intervals [place] Rate: 85 P: -89 AR: 62 QRS: -81 QRSD: 137 T: 54 QT: 409 QTc: 489 Interpretive Statements PROBABLE SINUS RHYTHM WITH PREMATURE ATRIAL CONTRACTIONS AND OCCASIONAL ELECTRONIC VENTRICULAR PACING MARKED BASELINE ARTIFACT RIGHT BUNDLE BRANCH BLOCK CANNOT RULE OUT ANTEROLATERAL MYOCARDIAL INFARCTION , OF INDETERMINATE AGE COMPARED TO ECG 02/08/2022 11:40:29 SINUS RHYTHM WITH PACS NOW APPRECIATED RIGHT BUNDLE-BRANCH BLOCK NOW PRESENT MYOCARDIAL INFARCT FINDING NOW PRESENT Electronically Signed On 05-28-2022 14:32:52 CDT by Luis Miguel Waggoner M.D.
[2022-05-26 08:17] LABS: Basophils Absolute Auto 0.02 K/mm3 (0.00-0.10); Basophils Percent Auto 0.3 % (0.0-1.0); Eosinophils Absolute Auto 0.12 K/mm3 (0.02-0.50); Eosinophils Percent Auto 1.9 % (1.0-6.0); Hematocrit 30.6 % (37.0-46.0); Hemoglobin 9.6 g/dL (12.4-15.3); Immature Granulocyte Absolute 0.02 K/mm3 (0.00-0.00); Immature Granulocyte Percent A 0.3 % (0.0-0.0); Lymphocytes Absolute Auto 0.67 K/mm3 (1.10-4.50); Lymphocytes Percent Auto 10.8 % (18.0-42.0); Mean Corpuscular HGB Conc 31.4 g/dL (32.0-36.0); Mean Corpuscular Hemoglobin 30.6 pg (27.0-31.0); Mean Corpuscular Volume 97.5 fL (78.0-102.0); Mean Platelet Volume 10.6 fl (8.7-11.0); Monocytes Absolute Auto 0.73 K/mm3 (0.10-0.90); Monocytes Percent Auto 11.8 % (2.0-11.0); Neutrophils Absolute Auto 4.6 K/mm3 (1.7-7.2); Neutrophils Percent Auto 74.9 % (50.0-70.0); Platelet Count Result 116 K/mm3 (150-420); Red Blood Count 3.14 M/mm3 (4.70-6.10); Red Cell Distribution Width 18.5 % (11.6-14.4); White Blood Count 6.2 K/mm3 (4.8-10.8)
[2022-05-26] MEDS: FUROSEMIDE INJ 40 MG/4 ML VIAL IV PUSH (08:25)
[2022-05-26 08:32] LABS: INR 1.2; Prothrombin Time 13.1 Seconds (9.50-12.10)
[2022-05-26 08:35] LABS: Lactic Acid Reflex 1.2 mmol/L (0.4-2.0)
[2022-05-26 08:40] LABS: Alanine Aminotransferase 20 U/L (16-63); Albumin Level 3.1 g/dL (3.4-5.0); Alkaline Phosphatase 42 U/L (46-116); Anion Gap 6 mmol/L (8-16); Aspartate Amino Transferase 16 U/L (15-37); Bilirubin,Total 0.9 mg/dL (0.00-1.00); Blood Urea Nitrogen 21 mg/dL (7-18); Carbon Dioxide 29 mmol/L (21-32); Chloride 104 mmol/L (98-108); Estimated Glomerular Filt Rate 43; Glucose 128 mg/dL (70-99); NT Pro B Type Natriuretic Pept 5043 pg/mL (0-450); Osmolality Calculated 293 mOsm/kg (285-295); Potassium 3.9 mmol/L (3.5-5.1); Sodium 139 mmol/L (136-145); Total Protein 6.5 g/dL (6.4-8.2)
[2022-05-26 08:41] LABS: Troponin I 157.7 ng/L (0.00-60.4)
[2022-05-26 08:42] LABS: CRP 3.5 mg/dL (0.0-0.9)
[2022-05-26 08:53] LABS: SARS-CoV-2 RNA PCR Negative (Negative)
[2022-05-26 09:36] LABS: Appearance Urine Clear (Clear); Bilirubin Urine Negative (Negative); Blood Urine Negative (Negative); Glucose Urine UA Negative (Negative); Ketones Urine Negative (Negative); Leukocyte Esterase Ur Negative (Negative); Nitrate Urine Negative (Negative); Protein Urine Negative (Negative); Specific Grav Ur 1.015 (1.010-1.020); Urobilinogen Urine 0.2 mg/dL (0.2-1.0)
--- NOTE | 2022-05-26 09:37 | ED.GENADULT ---
HPI - General Adult General Chief complaint: Abdominal Pain Stated complaint: ambulance Source: patient and EMS Mode of arrival: ambulatory Limitations: physical limitation History of Present Illness HPI narrative: this is an 82-year-old gentleman that presents via EMS after patient states that he had a restless night having some shortness of breath his O2 sats were mildly diminished at 9394 and EMS placed 2L of oxygen currently satting at 98%, still states that he has been having shortness of breath and some mild discomfort that abdomen that is relieved by oxygen, does have peripheral edema denies having chest pain no nausea vomiting no fever chills there is no black or tarry stools no blood in his stools does have chronic back pain, has a history of CHF had an echocardiogram 2017 which showed an ejection fraction of 52% has a history of a TAVR, has a history of AFib coronary artery disease CHF. The patient states that he is a do not intubate, was seen in our emergency room on the middle of April and transferred to [facility] for what was apparently a GI bleed, patient had an upper and lower endoscopy which showed no evidence of bleeding, recent blood work showed that he had an H&H of 9.6 and 30.6. Is complaining of back pain this is due to his chronic back, and lives at home with his . There is no diarrhea constipation no fever chills no nausea vomiting. Onset (ago): day(s) Radiation: back Severity: moderate Associated symptoms: shortness of breath Related Data Home Medications Medication Instructions Recorded Confirmed aspirin 81 mg tablet,delayed 81 mg PO DAILY 08/17/19 05/26/22 release (Adult Low Dose Aspirin) atorvastatin 40 mg tablet 40 mg PO DAILY 08/17/19 05/26/22 carvedilol 12.5 mg tablet (Coreg) 12.5 mg PO Q12H 08/17/19 05/26/22 pregabalin 100 mg capsule (Lyrica) 100 mg PO TID 08/17/19 05/26/22 tamsulosin 0.4 mg capsule (Flomax) 0.4 mg PO DAILY 08/17/19 05/26/22 finasteride 5 mg tablet 5 mg PO DAILY 10/20/19 05/26/22 furosemide 40 mg tablet 40 mg PO QAM 10/20/19 05/26/22 Iron (ferrous sulfate) 325 mg PO DAILY 12/29/20 05/26/22 allopurinol 100 mg tablet 100 mg PO DAILY 06/28/21 05/26/22 trazodone 50 mg tablet 50 mg PO HS PRN Insomnia 09/30/21 05/26/22 cilostazol 50 mg tablet 50 mg PO BID 12/18/21 05/26/22 Allergies Allergy/AdvReac Type Severity Reaction Status Date / Time oxycodone [OxyContin] Allergy Unknown Hallucinati Verified 05/26/22 07:37 ng Sulfa (Sulfonamide Allergy Unknown Rash Verified 05/26/22 07:37 Antibiotics) Review of Systems Review of Systems: All systems reviewed & are unremarkable except as noted in HPI and below PMFSH Past Medical History Medical History AAA (abdominal aortic aneurysm) Acute on chronic blood loss anemia Atrial fibrillation Bladder cancer CAD (coronary artery disease) Cardiac defibrillator in place CHF (congestive heart failure) CKD (chronic kidney disease), stage III COPD (chronic obstructive pulmonary disease) Erectile dysfunction REESE (generalized anxiety disorder) Gout High cholesterol Hypertension Myocardial infarction x3 KIARRA (obstructive sleep apnea) Patient stated that he does not Use CPAP Pacemaker Peripheral neuropathy PVD (peripheral vascular disease) Surgical History Surgical History AICD (automatic cardioverter/defibrillator) present History of aortic valve repair History of back surgery History of bladder surgery TURB procedure 2009 History of cholecystectomy History of coronary artery stent placement 2 stents History of heart valve replacement History of hernia repair incisional History of tonsillectomy and adenoidectomy History of transcatheter aortic valve replacement (TAVR) S/P CABG (coronary artery bypass graft) Four vessel CABG Status post placement of cardiac pacemaker Family History Family History (Revi
[2022-05-26 09:39] LABS: Add Urine Microscopic? NO; Color Urine Light Yellow (Yellow)
--- NOTE | 2022-05-26 11:49 | PC.NURSE ---
rn called [facility] to facilitate transfer.
[2022-05-26 12:28] LABS: Troponin I 178.6 ng/L (0.00-60.4)
--- NOTE | 2022-05-26 12:28 | PC.NURSE ---
patient has been accepted, report called to [facility] on IMU
--- NOTE | 2022-05-26 12:45 | PC.NURSE ---
[facility] called for transfer per patient request.
--- NOTE | 2022-05-26 13:32 | PC.NURSE ---
patient refused to keep monitor on any longer and wanted to sit in a chair while waiting for EMS to arrive.
--- NOTE | 2022-05-26 14:10 | PC.NURSE ---
rn called dispatch to get ETA on transfer.
[2022-05-26 14:40] VITALS: BP 148/106; PULSE 89; RESP 18; TEMP 36.8; O2SAT 98
--- NOTE | 2022-05-26 14:40 | PC.NURSE ---
report given to [facility] ems, patient enroute to [facility].
[2022-05-26 14:50] VITALS: O2SAT 96
--- NOTE | 2022-06-05 13:20 | PC.NURSE ---
BLOOD CULTURES X2 FINAL RESULTS NO GROWTH AFTER 5 DAYS
== END 2022-05-26 14:40 | disposition short-term general hospital (02) ==
PROVIDERS: Emergency Provider Emergency Medicine; PCP Internal Medicine
DX: I50.23 Acute on chronic systolic (congestive) heart failure (principal); Z20.822 Contact with and (suspected) exposure to COVID-19; I48.91 Unspecified atrial fibrillation; N18.30 Chronic kidney disease, stage 3 unspecified
CPT/HCPCS: 36415; 71045; 71250; 74176; 80053; 81003; 83605; 83880; 84484; 85025; 85610; 85730; 86140; 87040; 93005; 96365; 96375; 99285; C9803; J0131; J1940; U0003; U0005

== ENCOUNTER 2022-05-26 17:07 | Observation (INO) | payer MEDICARE, SELFPAY ==
--- NOTE | ~2022-05-26 | US_ITS ---
EXAMINATION: US venous doppler [facility] DATE: 05/27/2022 08:43 INDICATION: Lower limb swelling TECHNIQUE: Grayscale ultrasound images without and with compression and Doppler ultrasound images of the bilateral lower extremity veins were obtained. COMPARISON: None. FINDINGS: The visualized portions of right common femoral vein, profunda (deep) femoral vein, femoral vein, pop liteal vein, posterior tibial veins and greater saphenous vein outflow are patent. The visualized portions of left common femoral vein, profunda femoral vein, femoral vein, popliteal v ein, posterior tibial veins and greater saphenous vein outflow are patent. IMPRESSION: 1. No deep venous thrombosis in either lower limb. Reviewed, dictated and finalized at location A.
--- NOTE | ~2022-05-26 | XR_ITS ---
EXAMINATION: XR chest 1V portable Exam Date/Time: 05/26/2022 17:26 CDT HISTORY: Dyspnea on exertion; hx of CHF, A fib,COPD, prev smoker Comparison: Same date at 8:21 AM. RESULT: Lines, tubes, and devices: Fractured sternotomy wires, stable. Left chest pacer/defibrillator with i ntact leads. Aortic valve replacement. Lungs and pleura: Increased irregular subsegmental left basilar opacities. Decreased diffuse reticul ar opacities. Similar mild lateral angle blunting. Cardiomediastinal silhouette: Stable. Other: No acute osseous or upper abdominal finding. IMPRESSION: Worsening left basilar atelectasis/consolidation. Slightly improved interstitial edema. Likely small bilateral effusions, stable. Reviewed, dictated and finalized at location K. IMPRESSION: Worsening left basilar atelectasis/consolidation. Slightly improved interstitia l edema. Likely small bilateral effusions, stable.
--- NOTE | 2022-05-26 15:27 | ADMGEN ---
This patient, Jovan Rodas, was admitted to IMU Room 206-02 at 1513. Patient/family oriented to hospital policies and general routines including ID bracelet, bed and alarms, visiting hours, pain management, procedures, bathroom and other care routines, personal items, smoking policy, room service/diet, and visiting hours. Information on how to activate the Rapid Response Team has been discussed. Patient/Family are encouraged to report perceived risks to care and to ask questions if they do not understand what they are told or what they should do.
[2022-05-26 16:00] VITALS: BP 136/54; PULSE 100; PULSE 83; RESP 16; TEMP 36.4; O2SAT 90; O2SAT 95; BMI 27.4
[2022-05-26 16:14] VITALS: BMI 27.4
--- NOTE | 2022-05-26 17:01 | PM.IMHP ---
H&P: HPI History of Present Illness Date/Time: 05/26/22 17:01 Chief Complaint: Shortness of breath Narrative: This is an 82-year-old male patient who has a history of atrial fibrillation and is on apixaban. He is also on Coreg. The patient stated he has been taking his medication as prescribed. The patient does not typically use oxygen at home. Although he has COPD. The patient has been more dyspneic with exertion over the last 4 days. He denied any fever chills. No chest pain, no flank pain and no abdominal pain. No nausea vomiting or diarrhea. His O2 saturations were running 94-95% on room air when he came to [facility] ER. The patient had gone to his doctor's office with O2 saturations of 89% on room air this morning prior to going to [facility]. The patient also complains of increased swelling to his lower extremities. His H&H is 9.6 and 30.6 which is his baseline. His BUN is 21 and creatinine 1.55 which is also his baseline. According to [facility] troponin levels it was 178.6. And their normal range is 0.00-60.4. His C reactive protein is 3.5. BNP is 5043. The patient is complaining of left elbow pain but he tells me this is just his arthritic pain any uses [employer] at home. At this point he has no complaints of any chest pain. He was found to be negative for COVID. The patient does have an AICD but he said that it has not been checked in quite some time. His EKG was reading his junctional rhythm although his heart rate was 85 and I am not seeing any pacer spikes in this EKG is also read as right bundle branch block which was previously noted on his previous EKGs. Inferior myocardial infarction probably old anterior lateral myocardial infarction of indeterminate age. The patient is being admitted to [facility] as a direct admission from [place] as observation status on the date of service of 05/26/2022. Review of Systems Review of Systems: See HPI All systems reviewed & are unremarkable except as noted in HPI and below Constitutional: Constitutional: Reports as per HPI and Reports no additional constitutional complaints Eyes: Eyes: Reports as per HPI and Reports no additional eye complaints ENT: Reports system reviewed and no additional complaints, except as documented and Reports Normal hearing present Cardiovascular: Cardiovascular: Reports no additional cardiovascular complaints Respiratory: Respiratory: Reports no additional respiratory complaints and Reports no additional respiratory complaints Gastrointestinal: Gastrointestinal: Reports as per HPI and Reports no additional gastrointestinal complaints Musculoskeletal: Musculoskeletal: Reports no additional musculoskeletal complaints Integumentary/Breasts: Skin/Breast: Reports system reviewed and no additional complaints, except as docu and Reports as per HPI Neurologic: Reports system reviewed and no additional complaints, except as documented, Reports as per HPI and Reports Normal hearing present Psychiatric: Psychiatric: Reports no additional psychiatric complaints and Reports as per HPI Endocrine: Endocrine: Reports no additional endocrine complaints Hematologic/Lymphatic: Hematologic/Lymphatic: Reports no additional hematologic/lymphatic complaints Allergic/Immunologic: Allergic/Immunologic: Reports no additional allergic/immunologic complaints [facility] Past Medical History Medical History (Updated 05/26/22 @ 17:55 by Gely Cartwright NP) AAA (abdominal aortic aneurysm) Acute on chronic blood loss anemia Atrial fibrillation BPH (benign prostatic hyperplasia) CAD (coronary artery disease) Cardiac defibrillator in place CHF (congestive heart failure) Chronic GERD CKD (chronic kidney disease), stage III COPD (chronic obstructive pulmonary disease) Erectile dysfunction REESE (generalized anxiety disorder) Gout High cholesterol Hypertension Myocardial infarction x3 KIARRA (obstructive sleep apnea) Patient stated that he does
[2022-05-26 17:42] LABS: Lactic Acid Reflex 1.9 mmol/L (0.7-2.0)
[2022-05-26 17:43] LABS: Alanine Aminotransferase 21 U/L (6-50); Albumin Level 4.1 g/dL (3.5-5.1); Alkaline Phosphatase 49 U/L (38-126); Anion Gap 12 mmol/L (8-16); Aspartate Amino Transferase 28 U/L (17-59); Bilirubin,Total 1.4 mg/dL (0.2-1.3); Blood Urea Nitrogen 21 mg/dL (9-20); Calcium 9.2 mg/dL (8.4-10.2); Carbon Dioxide 26 mmol/L (22-30); Chloride 101 mmol/L (98-107); Estimated CRCL calculation 36 ml/min; Estimated Glomerular Filt Rate 49; Glucose 147 mg/dL (65-110); Magnesium 1.9 mg/dL (1.6-2.3); Potassium 4.1 mmol/L (3.4-5.0); Sodium 139 mmol/L (137-145)
[2022-05-26 17:56] LABS: Alveolar/Arterial O2 Gradient 91.6 mmHg; Base Excess ABG -0.1 mEq/l (+/-2.0); Fractional Inspired Oxygen 32 %; HCO3 ABG 24.5 mEq/l (22.0-26.0); Oxygen Content ABG 15.2 %vol (16.0-22.0); PCO2 ABG 39.4 mmHg (35.0-45.0); PO2 ABG 90.5 mmHg (80.0-100.0); PO2 FiO2 Ratio Arterial Blood 2.83 %; Total Hemoglobin 11.3 g/dL (12.0-18.0); pH ABG 7.411 (7.350-7.450)
[2022-05-26 17:58] LABS: Device NASAL CANNULA; Liters per Minute 3.5 LPM; Site Drawn RIGHT BRACHIAL
[2022-05-26 18:00] LABS: Troponin I 0.149 ng/mL (0.000-0.034)
--- NOTE | 2022-05-26 19:53 | ECG_ITS ---
Measurements Intervals [place] Rate: 88 P: OK: 0 QRS: -87 QRSD: 132 T: -6 QT: 412 QTc: 500 Interpretive Statements ATRIAL FIBRILLATION RIGHT BUNDLE BRANCH BLOCK [120+ ms QRS DURATION, UPRIGHT V1, 40+ ms S IN I/aVL/V4/V5/V6] INFERIOR MYOCARDIAL INFARCTION [40+ ms Q WAVE AND/OR ST/T ABNORMALITY IN II/aVF], OF INDETERMINATE AGE NONSPECIFIC ST T ABNORMALITY COMPARED TO ECG 05/26/2022 07:58:29 NO SIGNIFICANT DIFFERENCE Electronically Signed On 05-28-2022 14:32:36 CDT by Jarett Yousif M.D.
[2022-05-26] MEDS: methylPREDNISolone SOD SUCC 40 MG VIAL IV PUSH (19:57)
[2022-05-26 20:00] VITALS: BP 129/89; PULSE 86; PULSE 89; RESP 16; TEMP 36.4; O2SAT 99
[2022-05-26 20:31] LABS: Troponin I 0.159 ng/mL (0.000-0.034)
[2022-05-26 22:05] LABS: Appearance Urine Clear (Clear); Bilirubin Urine Negative (Negative); Blood Urine Trace-intact (Negative); Color Urine Yellow (Yellow); Glucose Urine UA Negative (Negative); Ketones Urine Negative (Negative); Leukocyte Esterase Ur Negative LEU/UL (Negative); Nitrate Urine Negative (Negative); Protein Urine Negative (Negative); Specific Grav Ur 1.015 (1.001-1.035); Urobilinogen Urine 0.2 mg/dL (<2.0); pH Urine 5.5 (5.0-9.0)
[2022-05-26 22:09] LABS: Mucus Urine Rare /lpf; Squamous Epithelial Cell Urine Rare /hpf (Few); WBC Urine 0-3 /hpf
[2022-05-26 22:23] VITALS: PULSE 80
[2022-05-26] MEDS: carvediloL 12.5 MG TABLET PO (22:23)
[2022-05-26 22:31] LABS: Add Urine Microscopic? YES
[2022-05-27] VITALS (7 sets, daily range): BP systolic 129–148; BP diastolic 48–84; PULSE 73–98; RESP 16–20; TEMP 36.3–37; O2SAT 94–100
[2022-05-27 00:19] LABS: Troponin I 0.138 ng/mL (0.000-0.034)
[2022-05-27] MEDS: cilostazoL 50 MG TABLET PO ×2 (01:10→08:50)
[2022-05-27] MEDS: methylPREDNISolone SOD SUCC 40 MG VIAL IV PUSH ×2 (01:10→07:03)
[2022-05-27] MEDS: traMADol HCL (*CRX) 50 MG TABLET PO (04:09)
[2022-05-27] MEDS: MENTHOL 10% / METHYL SALICYLATE 15% 57 GM TUBE 1 APPLIC TOPICAL (04:11)
[2022-05-27 04:42] LABS: Basophils Percent Auto 0.3 % (0.2-1.2); Hematocrit 32.9 % (42.0-52.0); Hemoglobin 10.4 g/dL (14.0-18.0); Immature Granulocyte Absolute 0.02 K/mm3 (0.00-0.031); Immature Granulocyte Percent A 0.5 % (0-0.5); Lymphocytes Absolute Auto 0.24 K/mm3 (0.9-3.2); Lymphocytes Percent Auto 6.3 % (18.3-44.2); Mean Corpuscular HGB Conc 31.6 g/dl (32-36); Mean Corpuscular Hemoglobin 30.9 pg (26-34); Mean Corpuscular Volume 97.6 fl (80-100); Mean Platelet Volume 10.6 fl (7.4-10.4); Neutrophils Absolute Auto 3.5 K/mm3 (1.3-6.7); Neutrophils Percent Auto 91.9 % (45.5-73.1); Platelet Count Result 133 k/mm3 (150-375); Red Blood Count 3.37 M/mm3 (4.6-6.20); Red Cell Distribution Width 18.6 % (11.5-14.5); White Blood Count 3.8 K/mm3 (4.5-10.0)
[2022-05-27 04:51] LABS: Lactic Acid Reflex 1.5 mmol/L (0.7-2.0)
[2022-05-27 04:52] LABS: Alanine Aminotransferase 21 U/L (6-50); Albumin Level 3.9 g/dL (3.5-5.1); Alkaline Phosphatase 46 U/L (38-126); Anion Gap 11 mmol/L (8-16); Aspartate Amino Transferase 25 U/L (17-59); Bilirubin,Total 1.4 mg/dL (0.2-1.3); Blood Urea Nitrogen 21 mg/dL (9-20); Calcium 8.8 mg/dL (8.4-10.2); Carbon Dioxide 24 mmol/L (22-30); Chloride 102 mmol/L (98-107); Estimated CRCL calculation 36 ml/min; Estimated Glomerular Filt Rate 49; Glucose 174 mg/dL (65-110); Lipase 77 U/L (23-300); Potassium 4.2 mmol/L (3.4-5.0); Sodium 137 mmol/L (137-145)
[2022-05-27 05:13] LABS: Platelet Estimate Adequate (Adequate)
[2022-05-27 05:14] LABS: Poikilocytosis 1+ (NORMAL)
[2022-05-27] MEDS: FUROSEMIDE INJ 40 MG/4 ML VIAL IV PUSH (08:49)
[2022-05-27] MEDS: carvediloL 12.5 MG TABLET PO (08:49)
[2022-05-27] MEDS: FERROUS SULFATE 324 MG TABLET PO (08:49)
[2022-05-27] MEDS: ASPIRIN 81 MG ENTERIC TABLET PO (08:50)
[2022-05-27] MEDS: TAMSULOSIN HCL 0.4 MG CAPSULE PO (08:50)
[2022-05-27] MEDS: PANTOPRAZOLE 40 MG TABLET PO (08:51)
[2022-05-27] MEDS: ATORVASTATIN 40 MG TABLET PO (08:51)
[2022-05-27] MEDS: POTASSIUM CHLORIDE 20 MEQ TABLET.ER 40 MEQ PO (08:51)
[2022-05-27] MEDS: FINASTERIDE 5 MG TABLET PO (08:52)
[2022-05-27] MEDS: allopurinoL 100 MG TABLET PO (08:52)
[2022-05-27] MEDS: APIXABAN 5 MG TABLET PO (08:53)
[2022-05-27] MEDS: PREGABALIN (*CRX) 50 MG CAPSULE 100 MG PO (08:58)
--- NOTE | 2022-05-27 10:40 | PM.DS ---
DS: Admitting Diagnosis Discharge Date May 27, 2022 Admitting Diagnosis Heart failure exacerbation DS: Discharge Diagnosis Discharge Diagnosis (1) CHF exacerbation: Qualifiers: Heart failure type: systolic Qualified Code(s): I50.23 - Acute on chronic systolic (congestive) heart failure Code(s): I50.9 - Heart failure, unspecified Status: Inactive Assessment and Plan: -IV Lasix -echo has been ordered. There is no echo in our system. -cardiology has been consulted. -repeat chest x-ray. -check ABGs. (2) CKD (chronic kidney disease), stage III: Code(s): N18.3 - Chronic kidney disease, stage 3 (moderate) Status: Chronic Assessment and Plan: -creatinine is 1.4 which is around his baseline but slightly lower. -continue to monitor basic metabolic panel. (3) COPD (chronic obstructive pulmonary disease): Qualifiers: COPD type: unspecified COPD Qualified Code(s): J44.9 - Chronic obstructive pulmonary disease, unspecified Code(s): J44.9 - Chronic obstructive pulmonary disease, unspecified Status: Acute Assessment and Plan: -Solu-Medrol -albuterol (4) REESE (generalized anxiety disorder): Code(s): F41.1 - Generalized anxiety disorder Status: Acute Assessment and Plan: -continue trazodone (5) Hypertension: Code(s): I10 - Essential (primary) hypertension Status: Chronic Assessment and Plan: -continue with Coreg (6) Pacemaker: Code(s): Z95.0 - Presence of cardiac pacemaker Status: Acute Assessment and Plan: -the patient stated that he has not had an interrogated in long time. I did not see any pacer spikes so I will have it interrogated. (7) Peripheral neuropathy: Code(s): G62.9 - Polyneuropathy, unspecified Status: Acute Assessment and Plan: -continue pregabalin (8) PVD (peripheral vascular disease): Code(s): I73.9 - Peripheral vascular disease, unspecified Status: Acute Assessment and Plan: -continue with home medication. (9) BPH (benign prostatic hyperplasia): Code(s): N40.0 - Benign prostatic hyperplasia without lower urinary tract symptoms Status: Acute Assessment and Plan: -continue with tamsulosin (10) Chronic GERD: Code(s): K21.9 - Gastro-esophageal reflux disease without esophagitis Status: Acute Assessment and Plan: Continue with pantoprazole (11) Atrial fibrillation: Qualifiers: Atrial fibrillation type: paroxysmal Qualified Code(s): I48.0 - Paroxysmal atrial fibrillation Code(s): I48.91 - Unspecified atrial fibrillation Status: Acute Assessment and Plan: Rate controlled. Continue with Coreg -continue with apixaban DS: Summary Hospital Course Hospital Course: 82-year-old male patient who has a history of atrial fibrillation and is on apixaban.? He is also on Coreg.? The patient stated he has been taking his medication as prescribed.? The patient does not typically use oxygen at home.? Although he has COPD.? The patient has been more dyspneic with exertion over the last 4 days.? He denied any fever chills.? No chest pain, no flank pain and no abdominal pain.? No nausea vomiting or diarrhea.? His O2 saturations were running 94-95% on room air when he came to [facility] ER.? The patient had gone to his doctor's office with O2 saturations of 89% on room air this morning prior to going to [facility].? The patient also complains of increased swelling to his lower extremities.? His H&H is 9.6 and 30.6 which is his baseline.? His BUN is 21 and creatinine 1.55 which is also his baseline.? According to [facility] troponin levels it was 178.6.? And their normal range is 0.00-60.4.? His C reactive protein is 3.5.? BNP is 5043.? The patient is complaining of left elbow pain but he tells me this is just his arthritic pain any uses Asper[employer] at home.? At this point h
== END 2022-05-27 11:09 | disposition home or self-care (01) ==
PROVIDERS: Nurse Practitioner; Admitting Provider Family Medicine; PCP Internal Medicine; Visit Provider Student in an Organized Health Care Education/Training Program
DX: I13.0 Hypertensive heart and chronic kidney disease with heart failure and stage 1 through stage 4 chronic kidney disease, or unspecified chronic kidney disease (principal); I50.23 Acute on chronic systolic (congestive) heart failure; N18.30 Chronic kidney disease, stage 3 unspecified; J44.9 Chronic obstructive pulmonary disease, unspecified; G62.9 Polyneuropathy, unspecified; Z95.0 Presence of cardiac pacemaker; I73.9 Peripheral vascular disease, unspecified; N40.0 Benign prostatic hyperplasia without lower urinary tract symptoms; K21.9 Gastro-esophageal reflux disease without esophagitis; I48.91 Unspecified atrial fibrillation; F41.1 Generalized anxiety disorder; M79.89 Other specified soft tissue disorders; R77.8 Other specified abnormalities of plasma proteins; Z20.822 Contact with and (suspected) exposure to COVID-19; I45.10 Unspecified right bundle-branch block; I25.10 Atherosclerotic heart disease of native coronary artery without angina pectoris; Z95.5 Presence of coronary angioplasty implant and graft; M10.9 Gout, unspecified; E78.00 Pure hypercholesterolemia, unspecified; I25.2 Old myocardial infarction; D62 Acute posthemorrhagic anemia; Z95.2 Presence of prosthetic heart valve; Z95.1 Presence of aortocoronary bypass graft; F10.90 Alcohol use, unspecified, uncomplicated; J98.11 Atelectasis; Z79.01 Long term (current) use of anticoagulants; Z87.891 Personal history of nicotine dependence; Z79.899 Other long term (current) drug therapy
CPT/HCPCS: 36415; 36600; 71045; 80053; 81001; 82805; 83605; 83690; 83735; 84484; 85025; 93005; 93970; 96374; 96375; 96376; A9270; G0378; G0379; J1940; J2920

== ENCOUNTER 2022-06-05 10:41 | Outpatient (CLI) | payer MEDICARE, SELFPAY ==
[2022-06-05 11:00] VITALS: BMI 27.1
[2022-06-05 11:04] VITALS: BP 110/56; PULSE 68; RESP 14; TEMP 36.3; O2SAT 97
[2022-06-05] MEDS: IRON SUCROSE COMPLEX 500 MG in SODIUM CHLORIDE 0.9% IV 250 ML 62.5 MG IVPB (11:10)
--- NOTE | 2022-06-05 14:56 | PC.NURSE ---
Patient her for #1 of 2 IV Venofer infusions. Education given. All concerns answered. IV Venofer administered. SEE MAR. Tolerated well. Safe exit of hospital per wc to car. Will return 06/19/22 at 1030.
== END 2022-06-05 10:42 | disposition home or self-care (01) ==
LOC: CHSTREATRM 10:44
PROVIDERS: PCP Internal Medicine; Visit Provider Internal Medicine
DX: D50.9 Iron deficiency anemia, unspecified (principal)
CPT/HCPCS: 96365; 96366; J1756; J7050

== ENCOUNTER 2022-06-11 19:22 | Emergency (ER) | payer MEDICARE, SELFPAY ==
[2022-06-11 19:35] VITALS: BP 119/68; PULSE 80; RESP 20; TEMP 37.9; O2SAT 95
--- NOTE | 2022-06-11 21:22 | ED.EXTPRO ---
HPI - Extremity Problem General Chief complaint: Extremity Problem,Nontraumatic Stated complaint: LEFT FOOT PAIN Time Seen by Provider: 06/11/22 19:25 Source: patient, family and RN notes reviewed Mode of arrival: wheelchair Limitations: no limitations History of Present Illness Complaint: extremity pain Onset (ago): day(s) (3) Location: right and lower extremity Severity scale (1-10): 2 Quality: aching Exacerbating factors: nothing Associated symptoms: denies other symptoms Related Data Home Medications Medication Instructions Recorded Confirmed aspirin 81 mg tablet,delayed 81 mg PO DAILY 08/17/19 06/05/22 release (Adult Low Dose Aspirin) atorvastatin 40 mg tablet 40 mg PO DAILY 08/17/19 06/05/22 carvedilol 12.5 mg tablet (Coreg) 12.5 mg PO Q12H 08/17/19 06/05/22 pregabalin 100 mg capsule (Lyrica) 100 mg PO TID 08/17/19 06/05/22 tamsulosin 0.4 mg capsule (Flomax) 0.4 mg PO DAILY 08/17/19 06/05/22 finasteride 5 mg tablet 5 mg PO DAILY 10/20/19 06/05/22 furosemide 40 mg tablet 40 mg PO QAM 10/20/19 06/05/22 ferrous sulfate 325 mg PO DAILY ##0 12/29/20 06/05/22 allopurinol 100 mg tablet 100 mg PO DAILY 06/28/21 06/05/22 trazodone 50 mg tablet 50 mg PO HS PRN Insomnia 09/30/21 06/05/22 cilostazol 50 mg tablet 50 mg PO BID 12/18/21 06/05/22 Allergies Allergy/AdvReac Type Severity Reaction Status Date / Time Sulfa (Sulfonamide Allergy Unknown Rash Verified 06/11/22 20:33 Antibiotics) Review of Systems Review of Systems: All systems reviewed & are unremarkable except as noted in HPI and below Constitutional: Constitutional: Reports no additional constitutional complaints Eyes: Eyes: Reports no additional eye complaints ENT: Reports system reviewed and no additional complaints, except as documented Cardiovascular: Cardiovascular: Reports no additional cardiovascular complaints Respiratory: Respiratory: Reports no additional respiratory complaints Gastrointestinal: Gastrointestinal: Reports no additional gastrointestinal complaints Musculoskeletal: Musculoskeletal: Reports no additional musculoskeletal complaints Comments: right foot healing wound, with foot redness and mild swelling Integumentary/Breasts: Skin/Breast: Reports system reviewed and no additional complaints, except as docu Neurologic: Reports system reviewed and no additional complaints, except as documented Psychiatric: Psychiatric: Reports no additional psychiatric complaints Endocrine: Endocrine: Reports no additional endocrine complaints Hematologic/Lymphatic: Hematologic/Lymphatic: Reports no additional hematologic/lymphatic complaints Allergic/Immunologic: Allergic/Immunologic: Reports no additional allergic/immunologic complaints PMFSH Past Medical History Medical History AAA (abdominal aortic aneurysm) Acute on chronic blood loss anemia Atrial fibrillation BPH (benign prostatic hyperplasia) CAD (coronary artery disease) Cardiac defibrillator in place CHF (congestive heart failure) Chronic GERD CKD (chronic kidney disease), stage III COPD (chronic obstructive pulmonary disease) Erectile dysfunction REESE (generalized anxiety disorder) Gout High cholesterol Hypertension Myocardial infarction x3 KIARRA (obstructive sleep apnea) Patient stated that he does not Use CPAP Pacemaker Peripheral neuropathy PVD (peripheral vascular disease) Surgical History Surgical History AICD (automatic cardioverter/defibrillator) present History of AAA (abdominal aortic aneurysm) repair History of aortic valve repair History of back surgery History of bladder surgery TURB procedure 2009 History of cholecystectomy History of coronary artery stent placement 2 stents History of heart valve replacement History of hernia repair incisional History of tonsillectomy and adenoidectomy History of transcatheter aortic valve replacemen
[2022-06-11] MEDS: cefTRIAXone 1 GM, LIDOCAINE HCL 1% LOCAL INJ 2.1 ML IM (21:42)
[2022-06-11] MEDS: ACETAMINOPHEN 325 MG TABLET 650 MG PO (21:44)
[2022-06-11 22:07] VITALS: BP 111/67; PULSE 84; RESP 18; TEMP 37.4; O2SAT 95
[2022-06-11 22:20] VITALS: TEMP 37.4
== END 2022-06-11 22:23 | disposition home or self-care (01) ==
PROVIDERS: Emergency Provider Emergency Medicine; PCP Internal Medicine
DX: L03.115 Cellulitis of right lower limb (principal)
CPT/HCPCS: 96372; 99283; A9270; J0696

== ENCOUNTER 2022-06-19 10:12 | Outpatient (CLI) | payer MEDICARE, SELFPAY ==
[2022-06-19 10:29] VITALS: BP 118/65; PULSE 72; RESP 16; TEMP 36.6; O2SAT 97
[2022-06-19] MEDS: IRON SUCROSE COMPLEX 500 MG in SODIUM CHLORIDE 0.9% IV 250 ML 62.5 MG IVPB (10:30)
--- NOTE | 2022-06-19 14:24 | PC.NURSE ---
Patient here for #2 of 2 IV Venofer infusions. Education given. Patient reports no problems with #1 Venofer given. IV Venofer administered. See MAR. Tolerated well. Safe exit of hospital per where Chana, patient pick him up.
== END 2022-06-19 10:13 | disposition home or self-care (01) ==
LOC: CHSTREATRM 10:15
PROVIDERS: PCP Internal Medicine; Visit Provider Internal Medicine
DX: D50.9 Iron deficiency anemia, unspecified (principal)
CPT/HCPCS: 96365; 96366; J1756; J7050

== ENCOUNTER 2022-09-06 08:12 | Outpatient (CLI) | payer MEDICARE, SELFPAY ==
--- NOTE | ~2022-09-06 | US_ITS ---
EXAMINATION: US arterial ankle brachial ind DATE: 09/06/2022 10:32 INDICATION: Peripheral arterial disease. TECHNIQUE: Segmental pressures and plethysmographic and Doppler waveforms of the brachial and lower e xtremity arteries were obtained. COMPARISON: ABIs 04/12/2021 FINDINGS: Right and left brachial artery pressures of 130 mm Hg and 122 mm Hg, respectively, are concordant (no rmal difference <= 30 mmHg). The right ankle-brachial index (CHICA) is 0.92 (normal >= 0.9-1.0). The right great toe-brachial index (TBI) is 0.38 (normal >= 0.65). Arterial Doppler waveforms are monophasic and the ankle. The left CHICA is 0.82. The left TBI is 0.48. Arterial Doppler waveforms are biphasic at the ankle. IMPRESSION: 1. Mildly decreased ABIs with worsening from 04/12/2021, consistent with arterial occlusive disease. Reviewed, dictated and finalized at location A. [employer] HEL[employer] IMPRESSION: 1. Mildly decreased ABIs with worsening from 04/12/2021, consistent with arteria l occlusive disease.
== END 2022-09-06 08:13 | disposition home or self-care (01) ==
LOC: CHSIMG 08:14
PROVIDERS: PCP Internal Medicine; Visit Provider Internal Medicine
DX: I73.9 Peripheral vascular disease, unspecified (principal)
CPT/HCPCS: 93922

== ENCOUNTER 2023-03-04 11:01 | Outpatient (CLI) | payer MEDICARE, SELFPAY ==
[2023-03-04] MEDS: cefTRIAXone 1 GM, LIDOCAINE HCL 1% LOCAL INJ 2.1 ML IM (11:30)
[2023-03-04 11:31] VITALS: BP 110/63; PULSE 72; RESP 16; TEMP 36.6; O2SAT 97; BMI 27.5
--- NOTE | 2023-03-04 12:30 | PC.NURSE ---
Patient here for Ceftriaxone IM injection. Education given. All concerns answered. Injection administered. SEE MAR. Tolerated well. Safe exit of hospital per self/ambulatory.
== END 2023-03-04 11:02 | disposition home or self-care (01) ==
PROVIDERS: PCP Internal Medicine; Visit Provider Internal Medicine
DX: M86.671 Other chronic osteomyelitis, right ankle and foot (principal)
CPT/HCPCS: 96372; J0696

== ENCOUNTER 2023-03-18 11:19 | Outpatient (NON) | payer MEDICARE, SELFPAY ==
[2023-03-18 11:39] LABS: Basophils Absolute Auto 0.05 K/mm3 (0.00-0.10); Basophils Percent Auto 0.9 % (0.0-1.0); Eosinophils Absolute Auto 0.24 K/mm3 (0.02-0.50); Eosinophils Percent Auto 4.2 % (1.0-6.0); Hematocrit 36.9 % (37.0-46.0); Hemoglobin 12.3 g/dL (12.4-15.3); Immature Granulocyte Absolute 0.02 K/mm3 (0.00-0.00); Immature Granulocyte Percent A 0.3 % (0.0-0.0); Immature Platelet Fraction Pct 3.2 % (1.0-7.0); Lymphocytes Absolute Auto 1.05 K/mm3 (1.10-4.50); Lymphocytes Percent Auto 18.2 % (18.0-42.0); Mean Corpuscular HGB Conc 33.3 g/dL (32.0-36.0); Mean Corpuscular Hemoglobin 31.9 pg (27.0-31.0); Mean Corpuscular Volume 95.6 fL (78.0-102.0); Mean Platelet Volume 11.7 fl (8.7-11.0); Monocytes Absolute Auto 0.74 K/mm3 (0.10-0.90); Monocytes Percent Auto 12.8 % (2.0-11.0); Neutrophils Absolute Auto 3.7 K/mm3 (1.7-7.2); Neutrophils Percent Auto 63.6 % (50.0-70.0); Platelet Count Result 101 K/mm3 (150-420); Red Blood Count 3.86 M/mm3 (4.70-6.10); Red Cell Distribution Width 16.3 % (11.6-14.4); White Blood Count 5.8 K/mm3 (4.8-10.8)
[2023-03-18 11:58] LABS: Alanine Aminotransferase 51 U/L (16-63); Albumin Level 3.3 g/dL (3.4-5.0); Alkaline Phosphatase 54 U/L (46-116); Anion Gap 12 mmol/L (8-16); Aspartate Amino Transferase 38 U/L (15-37); Bilirubin,Total 0.5 mg/dL (0.00-1.00); Blood Urea Nitrogen 54 mg/dL (7-18); CRP 0.6 mg/dL (0.0-0.9); Carbon Dioxide 27 mmol/L (21-32); Chloride 101 mmol/L (98-108); Estimated Glomerular Filt Rate 28; Glucose 189 mg/dL (70-99); Osmolality Calculated 309 mOsm/kg (285-295); Potassium 3.3 mmol/L (3.5-5.1); Sodium 140 mmol/L (136-145); Total Protein 7.8 g/dL (6.4-8.2)
[2023-03-18 12:42] LABS: Erythrocyte Sedimentation Rate 40 mm/hr (0-20)
== END 2023-03-18 11:20 | disposition home or self-care (01) ==
LOC: CHSLAB 11:22
PROVIDERS: Visit Provider Internal Medicine
DX: M86.171 Other acute osteomyelitis, right ankle and foot (principal)
CPT/HCPCS: 36415; 80053; 85025; 85055; 85652; 86140

== ENCOUNTER 2023-03-23 13:54 | Outpatient (CLI) | payer MEDICARE, SELFPAY ==
--- NOTE | 2023-03-23 14:10 | PC.NURSE ---
Patient here for IV infusion of Rocephin 2GM per Dr. Yang. Patient has PICC line, site flushed well. Dressing dry and intact. in room with patient
[2023-03-23] MEDS: cefTRIAXone 2 GM/NS 100 ML 2 GM/100 ML BAG IVPB (14:21)
--- NOTE | 2023-03-23 14:52 | PC.NURSE ---
IV Antibiotic done. Patient tolerated well. Instructed to come back at same time tomorrow. Left via wheelchair accompanied by . PICC line flushed well
== END 2023-03-23 13:55 | disposition home or self-care (01) ==
LOC: CHSTREATRM 13:57
PROVIDERS: PCP Internal Medicine; Visit Provider Internal Medicine
DX: M86.671 Other chronic osteomyelitis, right ankle and foot (principal)
CPT/HCPCS: 96365; J0696

== ENCOUNTER 2023-03-24 08:22 | Outpatient (CLI) | payer MEDICARE, SELFPAY ==
[2023-03-24] MEDS: cefTRIAXone 2 GM/NS 100 ML 2 GM/100 ML BAG IVPB (13:25)
--- NOTE | 2023-03-24 13:25 | PC.NURSE ---
Patient here to receive IV Antibiotic. PICC line flushed well. Dressing clean dry and intact.
--- NOTE | 2023-03-24 13:55 | PC.NURSE ---
Patient tolerated IV antibiotic well. PICC line flushed well. Patient left floor via wheelchair accompanied by .
== END 2023-03-24 08:23 | disposition home or self-care (01) ==
PROVIDERS: PCP Internal Medicine; Visit Provider Internal Medicine
DX: M86.671 Other chronic osteomyelitis, right ankle and foot (principal)
CPT/HCPCS: 96365; J0696

== ENCOUNTER 2023-04-08 10:56 | Outpatient (NON) | payer MEDICARE, SELFPAY ==
[2023-04-08 11:42] LABS: Hemoglobin 10.8 g/dL (12.4-15.3); Mean Corpuscular HGB Conc 32.7 g/dL (32.0-36.0); Mean Corpuscular Hemoglobin 32.7 pg (27.0-31.0); Mean Platelet Volume 11.9 fl (8.7-11.0); Platelet Count Result 100 K/mm3 (150-420); Red Cell Distribution Width 17.8 % (11.6-14.4); White Blood Count 4.5 K/mm3 (4.8-10.8)
[2023-04-08 11:43] LABS: Basophils Absolute Auto 0.03 K/mm3 (0.00-0.10); Basophils Percent Auto 0.7 % (0.0-1.0); Eosinophils Absolute Auto 0.16 K/mm3 (0.02-0.50); Eosinophils Percent Auto 3.5 % (1.0-6.0); Lymphocytes Absolute Auto 0.99 K/mm3 (1.10-4.50); Lymphocytes Percent Auto 21.9 % (18.0-42.0); Monocytes Absolute Auto 0.69 K/mm3 (0.10-0.90); Monocytes Percent Auto 15.2 % (2.0-11.0); Neutrophils Absolute Auto 2.7 K/mm3 (1.7-7.2); Neutrophils Percent Auto 58.7 % (50.0-70.0)
[2023-04-08 12:00] LABS: Alanine Aminotransferase 20 U/L (16-63); Albumin Level 3.1 g/dL (3.4-5.0); Alkaline Phosphatase 45 U/L (46-116); Anion Gap 10 mmol/L (8-16); Aspartate Amino Transferase 25 U/L (15-37); Bilirubin,Total 0.3 mg/dL (0.00-1.00); Blood Urea Nitrogen 27 mg/dL (7-18); Calcium 8.6 mg/dL (8.5-10.1); Carbon Dioxide 28 mmol/L (21-32); Chloride 104 mmol/L (98-108); Estimated Glomerular Filt Rate 41; Glucose 124 mg/dL (70-99); Osmolality Calculated 300 mOsm/kg (285-295); Potassium 3.6 mmol/L (3.5-5.1); Sodium 142 mmol/L (136-145); Total Protein 6.6 g/dL (6.4-8.2)
[2023-04-08 12:06] LABS: CRP < 0.5 mg/dL (0.0-0.9)
[2023-04-08 12:34] LABS: Erythrocyte Sedimentation Rate 20 mm/hr (0-20)
== END 2023-04-08 10:57 | disposition home or self-care (01) ==
LOC: CHSLAB 11:00
DX: M86.171 Other acute osteomyelitis, right ankle and foot (principal)
CPT/HCPCS: 36415; 80053; 85025; 85652; 86140

== ENCOUNTER 2023-04-09 12:02 | Observation (INO) | payer MEDICARE, SELFPAY ==
[2023-04-09] VITALS (24 sets, daily range): BP systolic 106–141; BP diastolic 66–92; PULSE 74–104; RESP 12–39; TEMP 36–36.3; O2SAT 90–98; BMI 25.7
--- NOTE | ~2023-04-09 | XR_ITS ---
EXAMINATION: XR chest 1V portable INDICATION: Shortness of breath TECHNIQUE: Portable AP chest at 1323 hours COMPARISON: 05/26/2022 FINDINGS: Cardiomegaly is noted. There is a mild diffuse interstitial pattern. There are minimal airs pace opacities of the left lung base. A right upper extremity PICC ends with its tip in the distal jaquez perior vena cava. There are changes of prior cardiac surgery. There also appear to be changes of endo luminal aortic valve replacement. A triple lead cardiac pacemaker of the left chest wall ends with le ads in expected locations. IMPRESSION: 1. Cardiomegaly with mild pulmonary edema. 2. Left basilar airspace opacity, consistent with atelectasis versus pneumonia. Reviewed, dictated and finalized at location L.
--- NOTE | 2023-04-09 12:13 | ED.SOB ---
HPI - SOB/Dyspnea General Chief Complaint: Shortness of Breath/Dyspnea Stated Complaint: shortness of breath Time Seen by Provider: 04/09/23 12:12 Source: patient and RN notes reviewed Mode of arrival: ambulatory Limitations: no limitations History of Present Illness HPI Narrative: patient states that he has been getting antibiotics for the last 6 weeks and has 2 more doses left. The problem is that he is having some increased shortness of breath and feels a little weaker since he has been having diarrhea from the antibiotics. He otherwise has no other new complaints. Denies any chest pain nausea vomiting. He is currently on ceftriaxone through PICC line. MD elicited complaint: shortness of breath Pertinent past history: COPD and congestive heart failure Onset (ago): day(s) (2) Timing: constant Severity: moderate Exacerbating factors: exertion Relieving factors: nothing Known history of: COPD and congestive heart failure Associated symptoms: denies other symptoms Treatment prior to arrival: none Related Data Home oxygen amount: none Home Medications Medication Instructions Recorded Confirmed aspirin 81 mg tablet,delayed 81 mg PO DAILY 08/17/19 04/09/23 release (Adult Low Dose Aspirin) atorvastatin 40 mg tablet 40 mg PO DAILY 08/17/19 04/09/23 carvedilol 12.5 mg tablet (Coreg) 12.5 mg PO Q12H 08/17/19 04/09/23 pregabalin 100 mg capsule (Lyrica) 100 mg PO TID 08/17/19 04/09/23 tamsulosin 0.4 mg capsule (Flomax) 0.4 mg PO DAILY 08/17/19 04/09/23 finasteride 5 mg tablet 5 mg PO DAILY 10/20/19 04/09/23 furosemide 40 mg tablet 40 mg PO QAM 10/20/19 04/09/23 allopurinol 100 mg tablet 100 mg PO DAILY 06/28/21 04/09/23 trazodone 50 mg tablet 50 mg PO HS PRN Insomnia 09/30/21 04/09/23 apixaban 2.5 mg tablet (Eliquis) 2.5 mg PO DAILY 04/09/23 04/09/23 tramadol 50 mg tablet 50 mg PO TID 04/09/23 04/09/23 Allergies Allergy/AdvReac Type Severity Reaction Status Date / Time Sulfa (Sulfonamide Allergy Unknown Rash Verified 10/17/22 20:33 Antibiotics) Review of Systems Review of Systems: All systems reviewed & are unremarkable except as noted in HPI and below Constitutional: Constitutional: Denies chills and Denies fever(s) Cardiovascular: Cardiovascular: Denies chest pain Respiratory: Respiratory: Denies cough PMFSH Past Medical History Medical History AAA (abdominal aortic aneurysm) Acute on chronic blood loss anemia Atrial fibrillation BPH (benign prostatic hyperplasia) CAD (coronary artery disease) Cardiac defibrillator in place CHF (congestive heart failure) Chronic GERD CKD (chronic kidney disease), stage III COPD (chronic obstructive pulmonary disease) Erectile dysfunction REESE (generalized anxiety disorder) Gout High cholesterol Hypertension Myocardial infarction x3 KIARRA (obstructive sleep apnea) Patient stated that he does not Use CPAP Pacemaker Peripheral neuropathy PVD (peripheral vascular disease) Surgical History Surgical History AICD (automatic cardioverter/defibrillator) present History of AAA (abdominal aortic aneurysm) repair History of aortic valve repair History of back surgery History of bladder surgery TURB procedure 2009 History of cholecystectomy History of coronary artery stent placement 2 stents History of heart valve replacement History of hernia repair incisional History of tonsillectomy and adenoidectomy History of transcatheter aortic valve replacement (TAVR) S/P CABG (coronary artery bypass graft) Four vessel CABG Status post placement of cardiac pacemaker Family History Family History Father Family history of aortic aneurysm Acute myocardial infarction Mother Parkinsons disease Social History Social History Social History: The [employer]
[2023-04-09 12:37] LABS: Basophils Absolute Auto 0.03 K/mm3 (0.00-0.10); Basophils Percent Auto 0.4 % (0.0-1.0); Eosinophils Absolute Auto 0.03 K/mm3 (0.02-0.50); Eosinophils Percent Auto 0.4 % (1.0-6.0); Hemoglobin 13.2 g/dL (12.4-15.3); Immature Granulocyte Absolute 0.03 K/mm3 (0.00-0.00); Immature Granulocyte Percent A 0.4 % (0.0-0.0); Lymphocytes Absolute Auto 0.61 K/mm3 (1.10-4.50); Lymphocytes Percent Auto 7.6 % (18.0-42.0); Mean Corpuscular Hemoglobin 32.8 pg (27.0-31.0); Mean Corpuscular Volume 99.5 fL (78.0-102.0); Mean Platelet Volume 10.3 fl (8.7-11.0); Monocytes Percent Auto 9.9 % (2.0-11.0); Neutrophils Absolute Auto 6.6 K/mm3 (1.7-7.2); Neutrophils Percent Auto 81.3 % (50.0-70.0); Nucleated Red Blood Cells Absolute Auto 0.02 K/mm3 (0.00-0.00); Nucleated Red Blood Cells Perc 0.2 % (0-0.0); Platelet Count Result 117 K/mm3 (150-420); Red Blood Count 4.02 M/mm3 (4.70-6.10); Red Cell Distribution Width 18.1 % (11.6-14.4); White Blood Count 8.1 K/mm3 (4.8-10.8)
[2023-04-09 12:59] LABS: Alanine Aminotransferase 21 U/L (16-63); Albumin Level 3.5 g/dL (3.4-5.0); Alkaline Phosphatase 35 U/L (46-116); Anion Gap 11 mmol/L (8-16); Aspartate Amino Transferase 31 U/L (15-37); Bilirubin,Total 0.8 mg/dL (0.00-1.00); Blood Urea Nitrogen 22 mg/dL (7-18); CRP 0.6 mg/dL (0.0-0.9); Calcium 9.1 mg/dL (8.5-10.1); Carbon Dioxide 27 mmol/L (21-32); Chloride 104 mmol/L (98-108); Estimated CRCL calculation 35 ml/min; Estimated Glomerular Filt Rate 46; Glucose 160 mg/dL (70-99); Magnesium 1.4 mg/dL (1.8-2.4); Osmolality Calculated 300 mOsm/kg (285-295); Potassium 4.2 mmol/L (3.5-5.1); Sodium 142 mmol/L (136-145)
[2023-04-09 13:01] LABS: NT Pro B Type Natriuretic Pept 19354 pg/mL (0-450)
[2023-04-09] MEDS: FUROSEMIDE INJ 40 MG/4 ML VIAL 60 MG IV PUSH (14:13)
[2023-04-09] MEDS: MAGNESIUM SULF 2 GM/WATER 50ML 2 GM/50 ML BAG IVPB (14:19)
--- NOTE | 2023-04-09 16:28 | ADMGEN ---
1426 This patient, Jovan Rodas, was admitted to 2nd Floor Room 209-1. he was admitted for chf. Patient/family oriented to hospital policies and general routines including ID bracelet, bed and alarms, visiting hours, pain management, procedures, bathroom and other care routines, personal items, smoking policy, room service/diet, and visiting hours. Information on how to activate the Rapid Response Team has been discussed. Patient/Family are encouraged to report perceived risks to care and to ask questions if they do not understand what they are told or what they should do.
--- NOTE | 2023-04-09 16:41 | PC.NURSE ---
r foot claims is looking so much better. it was red and dk purple all most all the way to ankle and the sm open pin point area on the toe next to the baby toe was somuch larger. they started and are cont to go to wound clinic in [place] for tx. 2nd toe in from outside foot does have a deep pinpoint opening with no redness noted or drainage.
[2023-04-09] MEDS: PREGABALIN (*CRX) 100 MG CAPSULE PO (20:56)
[2023-04-09] MEDS: traZODone HCL 50 MG TABLET PO (20:56)
[2023-04-09] MEDS: carvediloL 12.5 MG TABLET PO (20:56)
[2023-04-09] MEDS: traMADol HCL (*CRX) 50 MG TABLET PO (20:56)
[2023-04-10] VITALS: BP 122/88; PULSE 74; RESP 16; TEMP 36.2; O2SAT 93
[2023-04-10 08:00] VITALS: BP 96/80; PULSE 80; RESP 14; TEMP 36.4; O2SAT 96
[2023-04-10 08:57] LABS: Hematocrit 38.1 % (37.0-46.0); Hemoglobin 12.6 g/dL (12.4-15.3); Mean Corpuscular HGB Conc 33.1 g/dL (32.0-36.0); Mean Corpuscular Hemoglobin 32.7 pg (27.0-31.0); Mean Platelet Volume 9.7 fl (8.7-11.0); Platelet Count Result 105 K/mm3 (150-420); Red Blood Count 3.85 M/mm3 (4.70-6.10); Red Cell Distribution Width 18.3 % (11.6-14.4); White Blood Count 6.1 K/mm3 (4.8-10.8)
[2023-04-10] MEDS: POTASSIUM CHLORIDE 20 MEQ ER TABLET 40 MEQ PO (08:57)
[2023-04-10] MEDS: PANTOPRAZOLE 40 MG TABLET PO (08:57)
[2023-04-10] MEDS: APIXABAN 2.5 MG TABLET PO (08:57)
[2023-04-10] MEDS: ASPIRIN 81 MG ENTERIC TABLET PO (08:57)
[2023-04-10 08:58] VITALS: PULSE 74
[2023-04-10] MEDS: PREGABALIN (*CRX) 100 MG CAPSULE PO (08:58)
[2023-04-10] MEDS: traMADol HCL (*CRX) 50 MG TABLET PO (08:58)
[2023-04-10] MEDS: ATORVASTATIN 40 MG TABLET PO (08:58)
[2023-04-10] MEDS: FINASTERIDE 5 MG TABLET PO (08:58)
[2023-04-10] MEDS: TAMSULOSIN HCL 0.4 MG CAPSULE PO (08:58)
[2023-04-10] MEDS: carvediloL 12.5 MG TABLET PO (08:58)
[2023-04-10] MEDS: FUROSEMIDE INJ 40 MG/4 ML VIAL IV PUSH (08:59)
[2023-04-10 09:27] LABS: Anion Gap 10 mmol/L (8-16); Blood Urea Nitrogen 25 mg/dL (7-18); Carbon Dioxide 30 mmol/L (21-32); Chloride 103 mmol/L (98-108); Estimated CRCL calculation 35 ml/min; Estimated Glomerular Filt Rate 48; Glucose 148 mg/dL (70-99); Osmolality Calculated 303 mOsm/kg (285-295); Potassium 3.4 mmol/L (3.5-5.1); Sodium 143 mmol/L (136-145)
[2023-04-10 09:31] LABS: NT Pro B Type Natriuretic Pept 22808 pg/mL (0-450)
--- NOTE | 2023-04-10 09:55 | PM.SD2 ---
Same Day Admit/Disch: HPI History of Present Illness Chief complaint: CHF/Hypomagnesemia Narrative: Jovan Rodas is a 83 year old male that was admitted with patient states that he has been getting antibiotics for the last 6 weeks and has 2 more doses left.? The problem is that he is having some increased shortness of breath and feels a little weaker since he has been having diarrhea from the antibiotics.? He otherwise has no other new complaints.? Denies any chest pain nausea vomiting.? He is currently on ceftriaxone through PICC line. MD elicited complaint: shortness of breath Pertinent past history: COPD and congestive heart failure Onset (ago): day(s) (2) Timing: constant Severity: moderate Exacerbating factors: exertion Relieving factors: nothing Known history of: COPD and congestive heart failure Associated symptoms: denies other symptoms Treatment prior to arrival: none Related Data Home oxygen amount: none [facility] Past Medical History Medical History AAA (abdominal aortic aneurysm) Acute on chronic blood loss anemia Atrial fibrillation BPH (benign prostatic hyperplasia) CAD (coronary artery disease) Cardiac defibrillator in place CHF (congestive heart failure) Chronic GERD CKD (chronic kidney disease), stage III COPD (chronic obstructive pulmonary disease) Erectile dysfunction REESE (generalized anxiety disorder) Gout High cholesterol Hypertension Myocardial infarction x3 KIARRA (obstructive sleep apnea) Patient stated that he does not Use CPAP Pacemaker Peripheral neuropathy PVD (peripheral vascular disease) Surgical History Surgical History AICD (automatic cardioverter/defibrillator) present History of AAA (abdominal aortic aneurysm) repair History of aortic valve repair History of back surgery History of bladder surgery TURB procedure 2009 History of cholecystectomy History of coronary artery stent placement 2 stents History of heart valve replacement History of hernia repair incisional History of tonsillectomy and adenoidectomy History of transcatheter aortic valve replacement (TAVR) S/P CABG (coronary artery bypass graft) Four vessel CABG Status post placement of cardiac pacemaker Family History Family History Father Family history of aortic aneurysm Acute myocardial infarction Mother Parkinsons disease Social History Social History Social History: The patient is and lives with his . The patient stated that he quit smoking many years ago. The patient has 4 children. His is his durable power state's attorney for health. He is a former smoker. He denies any alcohol marijuana or illicit drugs. 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 Code status full code Smoking packs per day: 2 Smoking cigarettes per day: 40.0 Years smoked: 45 Smoking pack-years: 90.00 Smoking status: Former smoker Second hand tobacco smoke exposure: No Alcohol intake: former Drinks per week: 3 Substance use: never Substance use type: does not use Lack of Transportation: No Lack of Food: Never True Current Housing: I Have Housing Concerned About Future Housing: No Difficulty Paying Gas/Electric Bills: No Difficulty Paying for Meds: No Currently Unemployed: No Education: Don't Know Difficulty w/ Childcare or Family Care: No Living arrangements: with family Additional living arrangements comments: . 4 Children. Occupation/Education: retired Additional occupation/education comments: Prior Occupation: [email or web address]. Gender identity (if verbalized by the patient): Male Spiritual care concerns: No Same Day Admit/Disch: Med Pre-admit Medications Home Medications Medication Instructions Ambrocio
--- NOTE | 2023-04-10 11:59 | PC.NURSE ---
Patient is leaving AMA. Patricio catheter removed without difficulty. with patient. 500 mls emptied from catheter
--- NOTE | 2023-04-10 13:18 | PC.NURSE ---
Patient left AMA. Discharge instructions reviewed with . Discussed additional medications, to return for labs and follow up with primary physician. Discussed to return to ER if condition worsens. Taken to private vehicle by wheelchair. transferred self into vehicle
--- NOTE | 2023-04-12 08:31 | PC.NURSE ---
Discharge call back completed, spoke with , no questions or concerns regarding discharge, states home health has not been out to see him since discharge on 04/10/23. Advised to call for questions or concerns.
== END 2023-04-10 13:05 | disposition left against medical advice (07) ==
LOC: CHSED 13:35 → CHS2ND 14:13
PROVIDERS: Nurse Practitioner Family; Admitting Provider Internal Medicine; Emergency Provider Emergency Medicine; PCP Internal Medicine; Visit Provider Internal Medicine
DX: I13.0 Hypertensive heart and chronic kidney disease with heart failure and stage 1 through stage 4 chronic kidney disease, or unspecified chronic kidney disease (principal); I50.23 Acute on chronic systolic (congestive) heart failure; N18.30 Chronic kidney disease, stage 3 unspecified; I48.20 Chronic atrial fibrillation, unspecified; I25.10 Atherosclerotic heart disease of native coronary artery without angina pectoris; I71.40 Abdominal aortic aneurysm, without rupture, unspecified; I25.2 Old myocardial infarction; I73.9 Peripheral vascular disease, unspecified; J44.9 Chronic obstructive pulmonary disease, unspecified; K21.9 Gastro-esophageal reflux disease without esophagitis; E78.00 Pure hypercholesterolemia, unspecified; R19.7 Diarrhea, unspecified; N40.0 Benign prostatic hyperplasia without lower urinary tract symptoms; G62.9 Polyneuropathy, unspecified; G47.33 Obstructive sleep apnea (adult) (pediatric); F41.1 Generalized anxiety disorder; Z95.810 Presence of automatic (implantable) cardiac defibrillator; Z79.01 Long term (current) use of anticoagulants; Z79.82 Long term (current) use of aspirin; Z95.5 Presence of coronary angioplasty implant and graft; Z95.2 Presence of prosthetic heart valve; Z95.1 Presence of aortocoronary bypass graft; Z87.891 Personal history of nicotine dependence
CPT/HCPCS: 36415; 71045; 80048; 80053; 83735; 83880; 85025; 85027; 86140; 96365; 96375; 96376; 99285; A9270; G0378; J1940; J3475

== ENCOUNTER 2023-06-05 10:22 | Outpatient (CLI) | payer MEDICARE, SELFPAY ==
--- NOTE | ~2023-06-05 | CT_ITS ---
EXAMINATION: CT lumbar spine wo con DATE: 06/05/2023 10:47 INDICATION: Acutely worsening chronic low back pain. TECHNIQUE: Computed tomography (CT) of the lumbar spine was performed without intravenous contrast. A utomated exposure control and iterative reconstruction technique were employed. The dose-length produ ct was 748.36 mGy-cm. 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 There is 13 degrees levoscoli osis of lumbar spine. Vertebral body heights are normal. There is severely decreased disc height from L1-L2 through L5-S1 with endplate remodeling. The following disc levels are specifically discussed: L1-L2: The disc is bulging. There is mild bilateral facet joint osteoarthritis. There is mild bilater al neural foraminal stenosis. There is mild central canal stenosis. L2-L3: The disc is bulging. There is mild bilateral facet joint osteoarthritis. There is mild bilater al neural foraminal stenosis. There is mild central canal stenosis. L3-L4: The disc is bulging. There is severe right and mild left facet joint osteoarthritis. There is moderate right and mild left neural foraminal stenosis. There is mild central canal stenosis. L4-L5: The disc is bulging. There is mild bilateral facet joint osteoarthritis. There is moderate tor ateral neural foraminal stenosis. There is mild central canal stenosis. L5-S1: The disc is bulging. There is severe bilateral facet joint osteoarthritis. There is mild bilat eral neural foraminal stenosis. There is mild central canal stenosis. IMPRESSION: 1. Severe lumbar spondylosis, stable from 01/13/2021. 2. Lumbar levoscoliosis. 3. Stable 5.7 cm suprarenal fusiform aortic aneurysm. Reviewed, dictated and finalized at location A.
== END 2023-06-05 10:23 | disposition home or self-care (01) ==
LOC: CHSIMG 10:23
PROVIDERS: PCP Internal Medicine; Visit Provider Internal Medicine
DX: M54.50 Low back pain, unspecified (principal); M43.06 Spondylolysis, lumbar region; M41.86 Other forms of scoliosis, lumbar region; I71.43 Infrarenal abdominal aortic aneurysm, without rupture
CPT/HCPCS: 72131

== ENCOUNTER 2023-09-24 08:59 | Emergency (ER) | payer MEDICARE, SELFPAY ==
[2023-09-24] VITALS (42 sets, daily range): BP systolic 151–184; BP diastolic 88–119; PULSE 71–95; RESP 14–35; TEMP 35.8–36.1; O2SAT 68–100
--- NOTE | ~2023-09-24 | XR_ITS ---
EXAMINATION: XR chest 1V portable DATE: 09/24/2023 09:15 INDICATION: Shortness of breath. TECHNIQUE: A single frontal view of the chest was obtained. COMPARISON: Chest single view 04/09/2023, chest CT 05/26/2022 FINDINGS: There is a diffuse interstitial pattern, consistent with mild pulmonary edema. There is mil d atelectasis at the lung bases. No pleural effusion. Cardiomegaly is noted. There are changes of aor tic valve replacement. There is a left chest pacer with leads in right atrium, right ventricle, and c oronary sinus. IMPRESSION: 1. Mild pulmonary edema. 2. Cardiomegaly. Reviewed, dictated and finalized at location A. CHER LARD
--- NOTE | 2023-09-24 09:06 | ECG_ITS ---
Measurements Intervals [place] Rate: 78 P: [place]: 0 QRS: -86 QRSD: 168 T: 83 QT: 463 QTc: 528 Interpretive Statements ATRIAL FIBRILLATION ELECTRONIC VENTRICULAR PACEMAKER COMPLEX RIGHT BUNDLE BRANCH BLOCK LEFT ANTERIOR FASCICULAR BLOCK ABNORMAL ECG COMPARED TO ECG 05/26/2022 20:01:27 NO SIGNIFICANT CHANGES Electronically Signed On 09-24-2023 9:44:57 CLOTH NAPPING SUPERVISOR by Daniel Metzger D.O.
--- NOTE | 2023-09-24 09:09 | ED.SOB ---
HPI - SOB/Dyspnea General Chief Complaint: Shortness of Breath/Dyspnea Stated Complaint: diarrhea; short of breath Time Seen by Provider: 09/24/23 09:06 Source: patient and EMS Mode of arrival: ambulatory Limitations: no limitations History of Present Illness HPI Narrative: Patient is an 83-year-old male with diarrhea and shortness of breath for the past day. Patient was supposed to have a defibrillator/Pacer battery change today. EMS placed him on 3 L of nasal cannula oxygen to keep him in the 90s. He was running a saturation of high 80s without oxygen. He is requiring oxygen in the emergency room. MD elicited complaint: shortness of breath and cough Pertinent past history: congestive heart failure Onset (ago): day(s) (1) Timing: constant Severity: moderate Exacerbating factors: nothing Relieving factors: nothing Known history of: congestive heart failure Associated symptoms: other ( diarrhea since yesterday) Treatment prior to arrival: oxygen ( via EMS) and bronchodilator ( via EMS) Related Data Home oxygen amount: none Home Medications Medication Instructions Recorded Confirmed aspirin 81 mg tablet,delayed 81 mg PO DAILY 08/17/19 09/24/23 release (Adult Low Dose Aspirin) atorvastatin 40 mg tablet 40 mg PO DAILY 08/17/19 09/24/23 carvedilol 12.5 mg tablet (Coreg) 12.5 mg PO Q12H 08/17/19 09/24/23 pregabalin 100 mg capsule (Lyrica) 100 mg PO TID 08/17/19 09/24/23 tamsulosin 0.4 mg capsule (Flomax) 0.4 mg PO DAILY 08/17/19 09/24/23 finasteride 5 mg tablet 5 mg PO DAILY 10/20/19 09/24/23 furosemide 40 mg tablet 40 mg PO QAM 10/20/19 09/24/23 allopurinol 100 mg tablet 100 mg PO DAILY 06/28/21 09/24/23 trazodone 50 mg tablet 50 mg PO HS PRN Insomnia 09/30/21 09/24/23 apixaban 2.5 mg tablet (Eliquis) 2.5 mg PO BID 04/09/23 09/24/23 tramadol 50 mg tablet 50 mg PO TID 04/09/23 09/24/23 Allergies Allergy/AdvReac Type Severity Reaction Status Date / Time Sulfa (Sulfonamide Allergy Unknown Rash Verified 06/11/22 20:33 Antibiotics) Review of Systems Review of Systems: All systems reviewed & are unremarkable except as noted in HPI and below Constitutional: Constitutional: Reports no additional constitutional complaints Eyes: Eyes: Reports no additional eye complaints ENT: Reports system reviewed and no additional complaints, except as documented Cardiovascular: Cardiovascular: Reports no additional cardiovascular complaints Respiratory: Respiratory: Reports no additional respiratory complaints Gastrointestinal: Gastrointestinal: Reports no additional gastrointestinal complaints Genitourinary: Genitourinary: Reports no additional male genitourinary complaints Musculoskeletal: Musculoskeletal: Reports no additional musculoskeletal complaints Integumentary/Breasts: Skin/Breast: Reports system reviewed and no additional complaints, except as docu Neurologic: Reports system reviewed and no additional complaints, except as documented Psychiatric: Psychiatric: Reports no additional psychiatric complaints Endocrine: Endocrine: Reports no additional endocrine complaints Hematologic/Lymphatic: Hematologic/Lymphatic: Reports no additional hematologic/lymphatic complaints Allergic/Immunologic: Allergic/Immunologic: Reports no additional allergic/immunologic complaints PMFSH Past Medical History Medical History AAA (abdominal aortic aneurysm) Acute on chronic blood loss anemia Atrial fibrillation BPH (benign prostatic hyperplasia) CAD (coronary artery disease) Cardiac defibrillator in place CHF (congestive heart failure) Chronic GERD CKD (chronic kidney disease), stage III COPD (chronic obstructive pulmonary disease) Erectile dysfunction REESE (generalized anxiety disorder) Gout High cholesterol Hypertension Myocardial infarction x3 KIARRA (obstructive sleep apnea) Patient stated that he does not Use CPAP Pacemaker Peripheral neuropathy PVD (peripheral v
[2023-09-24 09:39] LABS: Basophils Absolute Auto 0.01 K/mm3 (0.00-0.10); Basophils Percent Auto 0.2 % (0.0-1.0); Eosinophils Absolute Auto 0.03 K/mm3 (0.02-0.50); Eosinophils Percent Auto 0.5 % (1.0-6.0); Hematocrit 37.9 % (37.0-46.0); Hemoglobin 12.3 g/dL (12.4-15.3); Immature Granulocyte Absolute 0.02 K/mm3 (0.00-0.00); Immature Granulocyte Percent A 0.3 % (0.0-0.0); Immature Platelet Fraction Pct 3.2 % (1.0-7.0); Lymphocytes Absolute Auto 0.59 K/mm3 (1.10-4.50); Lymphocytes Percent Auto 9.3 % (18.0-42.0); Mean Corpuscular HGB Conc 32.5 g/dL (32.0-36.0); Mean Corpuscular Hemoglobin 33.6 pg (27.0-31.0); Mean Corpuscular Volume 103.6 fL (78.0-102.0); Mean Platelet Volume 10.9 fl (8.7-11.0); Monocytes Absolute Auto 0.55 K/mm3 (0.10-0.90); Monocytes Percent Auto 8.7 % (2.0-11.0); Neutrophils Absolute Auto 5.1 K/mm3 (1.7-7.2); Platelet Count Result 87 K/mm3 (150-420); Red Blood Count 3.66 M/mm3 (4.70-6.10); Red Cell Distribution Width 16.4 % (11.6-14.4); White Blood Count 6.3 K/mm3 (4.8-10.8)
[2023-09-24] MEDS: methylPREDNISolone SOD SUCC 125 MG VIAL IV PUSH (09:41)
[2023-09-24 09:55] LABS: Lactic Acid Reflex 1.7 mmol/L (0.4-2.0)
[2023-09-24 10:03] LABS: Alanine Aminotransferase 29 U/L (16-63); Albumin Level 3.7 g/dL (3.4-5.0); Alkaline Phosphatase 46 U/L (46-116); Anion Gap 11 mmol/L (8-16); Aspartate Amino Transferase 28 U/L (15-37); Bilirubin,Total 1.7 mg/dL (0.00-1.00); Blood Urea Nitrogen 26 mg/dL (7-18); Carbon Dioxide 26 mmol/L (21-32); Chloride 104 mmol/L (98-108); Estimated CRCL calculation 30 ml/min; Estimated Glomerular Filt Rate 39; Glucose 143 mg/dL (70-99); NT Pro B Type Natriuretic Pept 4876 pg/mL (0-450); Osmolality Calculated 298 mOsm/kg (285-295); Potassium 4.3 mmol/L (3.5-5.1); Sodium 141 mmol/L (136-145); Total Protein 7.8 g/dL (6.4-8.2)
[2023-09-24 10:11] LABS: SARS-CoV-2 RNA PCR Negative (Negative)
[2023-09-24 10:12] LABS: Influenza A QL RT-PCR Negative (Negative); Influenza B QL RT-PCR Negative (Negative); RSV RNA, RT-PCR Negative (Negative)
[2023-09-24] MEDS: FUROSEMIDE INJ 20 MG/2 ML VIAL IV PUSH (10:22)
[2023-09-24] MEDS: carvediloL 12.5 MG TABLET PO (10:25)
[2023-09-24] MEDS: ASPIRIN 81 MG ENTERIC TABLET PO (10:25)
[2023-09-24 11:16] LABS: Appearance Urine Clear (Clear); Bilirubin Urine Negative (Negative); Blood Urine Trace-Intact (Negative); Color Urine Yellow (Yellow); Glucose Urine UA Negative (Negative); Ketones Urine Negative (Negative); Leukocyte Esterase Ur Negative LEU/UL (Negative); Nitrate Urine Negative (Negative); Protein Urine Negative (Negative); Specific Grav Ur 1.015 (1.010-1.020); Urobilinogen Urine 0.2 mg/dL (0.2-1.0)
[2023-09-24 11:20] LABS: Add Urine Microscopic? YES; Bacteria Urine Rare /hpf; RBC Urine 0-2 /hpf (0-2); WBC Urine None seen /hpf (0-3)
--- NOTE | 2023-09-30 12:20 | PC.NURSE ---
FINAL BLOOD CULTURE RESULTS X2: NO GROWTH AFTER 5 DAYS. NO ACTION NEEDED.
== END 2023-09-24 13:59 | disposition short-term general hospital (02) ==
PROVIDERS: Emergency Provider Emergency Medicine; PCP Internal Medicine
DX: I13.0 Hypertensive heart and chronic kidney disease with heart failure and stage 1 through stage 4 chronic kidney disease, or unspecified chronic kidney disease (principal); I50.9 Heart failure, unspecified; R79.89 Other specified abnormal findings of blood chemistry; N18.30 Chronic kidney disease, stage 3 unspecified; I25.10 Atherosclerotic heart disease of native coronary artery without angina pectoris; I48.91 Unspecified atrial fibrillation; J44.9 Chronic obstructive pulmonary disease, unspecified; I25.2 Old myocardial infarction; Z79.82 Long term (current) use of aspirin; Z79.01 Long term (current) use of anticoagulants; Z79.899 Other long term (current) drug therapy; Z87.891 Personal history of nicotine dependence; Z20.822 Contact with and (suspected) exposure to COVID-19
CPT/HCPCS: 36415; 71045; 80053; 81001; 83605; 83880; 84484; 85025; 85055; 87040; 87637; 93005; 96374; 96375; 99285; A9270; J1940; J2930

== ENCOUNTER 2023-12-17 14:55 | Outpatient (CLI) | payer MEDICARE, SELFPAY ==
--- NOTE | ~2023-12-17 | XR_ITS ---
EXAMINATION: XR chest 2V DATE: 12/17/2023 15:37 INDICATION: Upper respiratory tract infection TECHNIQUE: PA and lateral views of the chest were obtained. COMPARISON: Chest radiograph dated 09/24/2023 FINDINGS: Interval resolution of the prior interstitial pattern which likely related to mild pulmonary edema. T here is persistent elevation of the right hemidiaphragm with blunting at the costophrenic cardiophren ic angles as well as the posterior sulcus consistent with small left pleural effusion. Bandlike opaci ty and favor discoid atelectasis/scarring over pneumonia at the posterior left lung base. Right lung is clear. No pneumothorax or right-sided pleural effusion. Borderline heart size. Median sternotomy w ires, ostial markers and mediastinal surgical clips consistent with prior coronary artery bypass miguel ángel ting. Aortic valve repair. Three lead pacemaker/AICD seen with leads projecting over the expected loc ations of the right atrial appendage, apex of the right ventricle and overlying the left ventricle li jalil having traversed the coronary sinus. Mild to moderate thoracic spondylosis. Likely cholecystecto my clips the upper abdomen. IMPRESSION: 1. Small left pleural effusion. 2. bandlike opacity at the posterior left lung base and would favor atelectasis over pneumonia. 3. Borderline heart size. Reviewed, dictated and finalized at location A.
[2023-12-17 15:25] LABS: Basophils Absolute Auto 0.03 K/mm3 (0.00-0.10); Basophils Percent Auto 0.5 % (0.0-1.0); Eosinophils Absolute Auto 0.12 K/mm3 (0.02-0.50); Hemoglobin 12.3 g/dL (12.4-15.3); Immature Granulocyte Absolute 0.01 K/mm3 (0.00-0.00); Immature Granulocyte Percent A 0.2 % (0.0-0.0); Lymphocytes Absolute Auto 0.89 K/mm3 (1.10-4.50); Lymphocytes Percent Auto 14.9 % (18.0-42.0); Mean Corpuscular HGB Conc 32.4 g/dL (32-36); Mean Platelet Volume 10.5 fl (8.7-11.0); Monocytes Absolute Auto 0.58 K/mm3 (0.10-0.90); Monocytes Percent Auto 9.7 % (2.0-11.0); Neutrophils Absolute Auto 4.33 K/mm3 (1.70-7.20); Neutrophils Percent Auto 72.7 % (50.0-70.0); Platelet Count Result 107 K/mm3 (150-420); Red Blood Count 3.84 M/mm3 (4.70-6.10); Red Cell Distribution Width 15.7 % (11.6-14.4)
[2023-12-17 15:41] LABS: Alanine Aminotransferase 17 U/L (16-63); Albumin Level 3.6 g/dL (3.4-5.0); Alkaline Phosphatase 46 U/L (46-116); Anion Gap 9 mmol/L (4-12); Aspartate Amino Transferase 17 U/L (15-37); Blood Urea Nitrogen 24 mg/dL (7-18); Calcium 8.6 mg/dL (8.5-10.1); Carbon Dioxide 31 mmol/L (21-32); Chloride 105 mmol/L (98-108); Estimated Glomerular Filt Rate 44; Glucose 120 mg/dL (70-99); Osmolality Calculated 305 mOsm/kg (285-295); Potassium 3.7 mmol/L (3.5-5.1); Sodium 145 mmol/L (136-145); Total Protein 7.7 g/dL (6.4-8.2)
[2023-12-17 15:56] LABS: Strep Group A RT-PCR NOT DETECTED (Negative)
[2023-12-17 16:04] LABS: SARS-CoV-2 RNA PCR Negative (Negative)
[2023-12-17 16:06] LABS: Influenza A QL RT-PCR Negative (Negative); Influenza B QL RT-PCR Negative (Negative); RSV RNA, RT-PCR Negative (Negative)
== END 2023-12-17 14:56 | disposition home or self-care (01) ==
LOC: CHSLAB 14:58
PROVIDERS: PCP Internal Medicine; Visit Provider Internal Medicine
DX: J00 Acute nasopharyngitis [common cold] (principal); J06.9 Acute upper respiratory infection, unspecified; J90 Pleural effusion, not elsewhere classified; R91.8 Other nonspecific abnormal finding of lung field
CPT/HCPCS: 36415; 71046; 80053; 85025; 87637; 87651

== ENCOUNTER 2024-05-07 13:00 | Outpatient (RCR) | payer MEDICARE, SELFPAY ==
--- NOTE | 2024-05-07 14:19 | OPREHPOC ---
Outpatient Therapy Plan of Care This is a Multidisciplinary Plan of Care that may contain components documented by all disciplines (PT, OT, and ST.) PT Problem 1 PT Problem #1 Knowledge Deficit PT Goal 1 Goal / Goal Update 1. independent and compliant with HEP Target Visit 6 PT Problem 2 PT Problem #2 Impaired Strength PT Goal 1 Goal / Goal Update 1. improve bilateral hip strength to 5/5 in sitting 2. improve R ankle DF strength to 4/5 or better Target Visit 12 PT Problem 3 PT Problem #3 Impaired Balance PT Goal 1 Goal / Goal Update 1. tinetti to display moderate fall risk or less 2. TUG to be completed in 12 seconds or less safely 2. 5x sit to stand to be completed in 10 second or less safely Target Visit 12 PT Problem 4 PT Problem #4 Impaired Functional Mobil PT Goal 1 Goal / Goal Update 1. patient to report no falls in the last 4 weeks. 2. patient to ambulate with improved step/stride length bilaterally. Target Visit 12
--- NOTE | 2024-05-07 14:20 | PTOPEVAL1 ---
Assessment and note entered by JT File, PT Evaluation Information Assessment Status Evaluation ICD-10 Condition Codes (PT) R26.9 Onset 04/24/24 Subjective Information patient report he has had no falls, but reports he is unsteady on his feet. he reports he has pain in his hands and feet from neuropathy. he reports he has had neuropathy for years. he reports it runs from his knees down, and from the wrists down in his hands. he reports a few days ago he accidentally cut his fingers when he was trying to cut his nails. he reports he did not have his glasses on, and was unaware he was cutting into his skin. he reports he will occasionally use a walker. Reported Pain Level Pain Score 2,2: Self Report Assessment PT Clinical Summary mr. valente is an 84 yo man who presents to skilled PT services for evaluation and treatment of abnormality of gait. he presents today with weakness in the bilateral LE's, high fall risk, and poor gait mechanics/safety. he also presents with deficits in sensation to the bilateral LE's from neuropathy which is likely the root cause of his ambulation and balance deficits. he would benefit from continued skilled PT to address his objective/functional deficits and improve his functional activity performance/quality of life. Plan of Care Interventions Gait Training,Neuro Re-education,Patient/Caregiver Educati,Therapeutic Activities,Therapeutic Exercise PT Services Indicated Yes Treatment Frequency and 3x weekly for 12 visits Duration These treatments will address the objective and functional deficits as defined above. The patient will be advanced safely and appropriately in order for the patient to progress towards his/her prior level of function. Additional exercises will be introduced and as well as a comprehensive home exercise program upon discharge, if needed, ?to ensure carryover of functional gains achieved in the clinic. This treatment plan has been reviewed and agreement upon by the patient.
--- NOTE | 2024-05-26 17:17 | PTOPDC ---
Assessment and note entered by JT File, PT Evaluation Information Assessment Status Discharge - Pt Not Presen ICD-10 Condition Codes (PT) R26.9 Onset 04/24/24 Subjective Information patient report he has had no falls, but reports he is unsteady on his feet. he reports he has pain in his hands and feet from neuropathy. he reports he has had neuropathy for years. he reports it runs from his knees down, and from the wrists down in his hands. he reports a few days ago he accidentally cut his fingers when he was trying to cut his nails. he reports he did not have his glasses on, and was unaware he was cutting into his skin. he reports he will occasionally use a walker. Reported Pain Level Pain Score 0: Self Report Assessment PT Clinical Summary patient called and reports he is done with therapy . he will be DC'd from skilled PT services as of this date. he attended 7 skilled PT visits for balance and unsteady gait. Plan of Care PT Services Indicated Yes
== END 2024-05-25 20:00 | disposition home or self-care (01) ==
LOC: CHSPT 13:00
DX: R26.9 Unspecified abnormalities of gait and mobility (principal)
CPT/HCPCS: 97110; 97161; 97530

== ENCOUNTER 2024-06-18 14:05 | Outpatient (CLI) | payer MEDICARE, SELFPAY ==
[2024-06-18 14:33] LABS: Add Urine Microscopic? NO; Appearance Urine Clear (Clear); Bilirubin Urine Negative (Negative); Blood Urine Negative (Negative); Color Urine Light Yellow (Yellow); Glucose Urine UA Negative (Negative); Ketones Urine Negative (Negative); Leukocyte Esterase Ur Negative LEU/UL (Negative); Nitrate Urine Negative (Negative); Protein Urine Negative (Negative); Urobilinogen Urine 0.2 mg/dL (0.2-1.0); pH Urine 5.5 (5.0-8.0)
[2024-06-18 14:35] LABS: Hematocrit 37.8 % (37.0-46.0); Hemoglobin 12.7 g/dL (12.4-15.3); Immature Platelet Fraction Pct 2.6 % (1.0-7.0); Mean Corpuscular HGB Conc 33.6 g/dL (32-36); Mean Corpuscular Hemoglobin 32.9 pg (27.0-31.0); Mean Corpuscular Volume 97.9 fL (78.0-102.0); Mean Platelet Volume 10.3 fl (8.7-11.0); Platelet Count Result 93 K/mm3 (150-420); Red Blood Count 3.86 M/mm3 (4.70-6.10); Red Cell Distribution Width 16.2 % (11.6-14.4); White Blood Count 5.6 K/mm3 (4.8-10.8)
[2024-06-18 14:40] LABS: Hemoglobin A1C 5.6 % (<5.7)
[2024-06-18 14:55] LABS: Total Cells Counted 100
[2024-06-18 14:56] LABS: Band Neutrophils Percent 0 % (0-6); Eosinophils Absolute Manual 0.05 K/mm3 (0.02-0.50); Eosinophils Percent Manual 1 % (1-6); Lymphocytes Absolute Manual 0.89 K/mm3 (1.1-4.5); Lymphocytes Percent Manual 16 % (18-44); Monocytes Percent Manual 25 % (3-9); Neutrophils Absolute Manual 3.24 K/mm3 (1.3-6.7); Neutrophils Percent Manual 58 % (46-73); Platelet Estimate Decreased (Adequate)
[2024-06-18 15:30] LABS: Alanine Aminotransferase 21 U/L (16-63); Alkaline Phosphatase 49 U/L (46-116); Anion Gap 10 mmol/L (4-12); Aspartate Amino Transferase 18 U/L (15-37); Bilirubin,Total 1.5 mg/dL (0.00-1.00); Blood Urea Nitrogen 36 mg/dL (7-18); CRP 3.1 mg/dL (0.0-0.9); Calcium 9.5 mg/dL (8.5-10.1); Carbon Dioxide 29 mmol/L (21-32); Chloride 102 mmol/L (98-108); Cholesterol 122 mg/dL (0-200); Creatine Kinase 62 U/L (39-308); Estimated Glomerular Filt Rate 33; Ferritin 302 ng/mL (26-388); Free T3 1.52 pg/mL (2.18-3.98); Free T4 Free Thyroxine 0.62 ng/dL (0.76-1.46); Glucose 119 mg/dL (70-99); HDL Direct 36 mg/dL (40-60); Iron 60 ug/dL (65-175); LDL Cholesterol Calculated 68 mg/dL (<130); NT Pro B Type Natriuretic Pept 2247 pg/mL (0-450); Osmolality Calculated 301 mOsm/kg (285-295); Potassium 4.1 mmol/L (3.5-5.1); Sodium 141 mmol/L (136-145); Total Protein 7.8 g/dL (6.4-8.2); Triglycerides 90 mg/dL (0-150); Uric Acid 5.7 mg/dL (3.5-7.2); Vitamin B12 703 pg/mL (193-986)
[2024-06-18 15:41] LABS: Erythrocyte Sedimentation Rate 34 mm/hr (0-20)
[2024-06-19 19:38] LABS: Red Blood Cell Folate 676 ng/mL RBC (>280)
== END 2024-06-18 14:06 | disposition home or self-care (01) ==
LOC: CHSLAB 14:07
PROVIDERS: PCP Internal Medicine; Visit Provider Internal Medicine
DX: I48.21 Permanent atrial fibrillation (principal); G62.9 Polyneuropathy, unspecified; I10 Essential (primary) hypertension; R73.01 Impaired fasting glucose; I50.22 Chronic systolic (congestive) heart failure; N18.30 Chronic kidney disease, stage 3 unspecified; D64.9 Anemia, unspecified; N39.0 Urinary tract infection, site not specified
CPT/HCPCS: 36415; 80053; 80061; 81003; 82550; 82607; 82728; 82747; 83036; 83540; 83880; 84439; 84443; 84481; 84550; 85025; 85055; 85652; 86140

== ENCOUNTER 2024-07-03 11:27 | Outpatient (CLI) | payer MEDICARE, SELFPAY ==
--- NOTE | ~2024-07-03 | XR_ITS ---
EXAMINATION: XR nasal bones min 3V DATE: 07/03/2024 12:02 INDICATION: Nose injury. TECHNIQUE: 3 views of the nasal bones on 4 radiograph were obtained. COMPARISON: None. FINDINGS: There is leftward deviation of the nasal septum. There are fracture deformities of the nasa l bones. IMPRESSION: 1. Age-indeterminate fracture deformities of the nasal bones. Reviewed, dictated and finalized at location A. L MANAGER
--- NOTE | ~2024-07-03 | XR_ITS ---
EXAMINATION: XR facial bones min 3V DATE: 07/03/2024 12:01 INDICATION: Face injury. TECHNIQUE: 4 views of the facial bones were obtained. COMPARISON: Head CT 06/28/2021 FINDINGS: There are fracture deformities of the nasal bones. There is leftward deviation of the nasal septum. IMPRESSION: 1. Age-indeterminate fracture deformities of the nasal bones. Reviewed, dictated and finalized at location A. THESIA DIRECTOR
== END 2024-07-03 11:28 | disposition home or self-care (01) ==
LOC: CHSIMG 11:31
PROVIDERS: PCP Internal Medicine; Visit Provider Internal Medicine
DX: S02.2XXA Fracture of nasal bones, initial encounter for closed fracture (principal)
CPT/HCPCS: 70150; 70160

== ENCOUNTER 2024-07-17 10:21 | Outpatient (CLI) | payer MEDICARE, SELFPAY ==
--- NOTE | ~2024-07-17 | CT_ITS ---
EXAMINATION: CT facial bones wo con DATE: 07/17/2024 10:41 INDICATION: Nose injury. TECHNIQUE: Computed tomography (CT) of the facial bones and maxillofacial region was performed withou t intravenous contrast. Automated exposure control and iterative reconstruction technique were employ ed. The dose-length product was 506.00 mGy-cm. COMPARISON: Head CT 06/28/2021 FINDINGS: The orbits are normal. There is an old blowout fracture of medial wall of right orbit. Ther e is mild mucosal thickening in the paranasal sinuses. The mastoid air cells are normal. There are fr actures of the nasal bones and nasal processes of maxilla with leftward displacement and angulation o f some of the fracture fragments. There is severe cervical spondylosis. IMPRESSION: 1. Fractures of the nasal bones and nasal processes of maxilla. Reviewed, dictated and finalized at location A. E MACHINE TENDER
== END 2024-07-17 10:22 | disposition home or self-care (01) ==
LOC: CHSIMG 10:22
PROVIDERS: PCP Internal Medicine; Visit Provider Internal Medicine
DX: S02.2XXA Fracture of nasal bones, initial encounter for closed fracture (principal); S09.93XA Unspecified injury of face, initial encounter
CPT/HCPCS: 70486

== ENCOUNTER 2024-08-18 10:34 | Emergency (ER) | payer MEDICARE, SELFPAY ==
--- NOTE | ~2024-08-18 | XR_ITS ---
EXAMINATION: XR chest 1V portable DATE: 08/18/2024 11:14 INDICATION: Fever. Weakness. TECHNIQUE: A single frontal view of the chest was obtained. COMPARISON: Chest 2 views 12/17/2023 FINDINGS: There are Lili B-lines, consistent mild pulmonary edema. No pleural effusion or pneumotho rax. The heart size is normal. There are changes of aortic valve replacement. There is a left chest p acer leads in right atrium, right ventricle, and coronary sinus. IMPRESSION: 1. Mild pulmonary edema. Reviewed, dictated and finalized at location A. NT CARE PHYSICIAN IMPRESSION: 1. Mild pulmonary edema.
[2024-08-18 10:34] VITALS: BP 147/99; PULSE 74; RESP 18; TEMP 36.4; O2SAT 96
--- NOTE | 2024-08-18 10:51 | ED.GENADULT ---
HPI - General Adult General Chief complaint: Weakness Stated complaint: URI Time Seen by Provider: 08/18/24 10:50 Source: patient and family Mode of arrival: ambulatory Limitations: no limitations History of Present Illness HPI narrative: 84-year-old male with a history of smoking, generalized anxiety disorder, hypertension, CAD status post stents status post CABG, AFib status post AV ablation, CHF with an EF of 52%, AAA status post open repair status post TAVR, CKD, dyslipidemia, gout, BPH status post TURP, PVD presents to the ED with a 1 week history of -- fatigue. patient feels that he has been beaten all over his body. -- decreased appetite -- feels cold -- 1 episode of diarrhea in the last 7 days. in the last 3 days he has not had a bowel movement. No current nausea / vomiting /abdominal pain / diarrhea. -- Subjective fever No chest pain or shortness of breath patient was transferred from his primary care physician's office. Patient had negative influenza and COVID at his PCPs office today. Onset (ago): week(s) ( 1 week) Related Data Home Medications ?Medication ?Instructions ?Recorded ?Confirmed ?Last Taken ?Type aspirin 81 mg tablet,delayed 81 mg PO DAILY 08/17/19 09/24/23 07/04/20 History release (Adult Low Dose Aspirin) atorvastatin 40 mg tablet 40 mg PO DAILY 08/17/19 09/24/23 07/04/20 History carvedilol 12.5 mg tablet (Coreg) 12.5 mg PO Q12H 08/17/19 09/24/23 07/04/20 History pregabalin 100 mg capsule (Lyrica) 100 mg PO TID 08/17/19 09/24/23 07/04/20 History tamsulosin 0.4 mg capsule (Flomax) 0.4 mg PO DAILY 08/17/19 09/24/23 07/04/20 History finasteride 5 mg tablet 5 mg PO DAILY 10/20/19 09/24/23 07/04/20 History furosemide 40 mg tablet 40 mg PO QAM 10/20/19 09/24/23 07/04/20 History allopurinol 100 mg tablet 100 mg PO DAILY 06/28/21 09/24/23 Unknown History trazodone 50 mg tablet 50 mg PO HS PRN Insomnia 09/30/21 09/24/23 Unknown History apixaban 2.5 mg tablet (Eliquis) 2.5 mg PO BID 04/09/23 09/24/23 Unknown History tramadol 50 mg tablet 50 mg PO TID 04/09/23 09/24/23 Unknown History Allergies Allergy/AdvReac Type Severity Reaction Status Date / Time Sulfa (Sulfonamide Allergy Unknown Rash Verified 08/18/24 10:43 Antibiotics) Review of Systems Review of Systems: All systems reviewed & are unremarkable except as noted in HPI and below Constitutional: Constitutional: Reports as per HPI, Reports no additional constitutional complaints, Reports fatigue and Reports weakness Eyes: Eyes: Reports as per HPI and Reports no additional eye complaints ENT: Reports no additional ear, nose, mouth, and throat complaints and Reports as per HPI Cardiovascular: Cardiovascular: Reports as per HPI and Reports no additional cardiovascular complaints Respiratory: Respiratory: Reports as per HPI and Reports no additional respiratory complaints Gastrointestinal: Gastrointestinal: Reports as per HPI, Reports no additional gastrointestinal complaints and Reports diarrhea Genitourinary: Genitourinary: Reports no additional male genitourinary complaints and Reports as per HPI Musculoskeletal: Musculoskeletal: Reports no additional musculoskeletal complaints and Reports as per HPI Integumentary/Breasts: Skin/Breast: Reports system reviewed and no additional complaints, except as docu and Reports as per HPI Neurologic: Reports no additional neurologic complaints and Reports as per HPI Psychiatric: Psychiatric: Reports no additional psychiatric complaints and Reports as per HPI Endocrine: Endocrine: Reports no additional endocrine complaints and Reports as per HPI Hematologic/Lymphatic: Hematologic/Lymphatic: Reports no additional hematologic/lymphatic complaints and Reports as per HPI Allergic/Immunologic: Allergic/Immunologic: Reports no additional allergic/immunologic complaints and Reports as per HPI [facility] Past Medical History Medical History Chronic GERD BPH (benign prostatic hyperplasia) Acute on chronic blood loss anemia High cholesterol Peripheral neuropathy Myocardial infarction x3 Cardiac defibrillator in place Pacemaker KIARRA (obstructive sleep apnea) Patient stated that he does not Use CPAP PVD (peripheral vascular disease) Hypertension Gout REESE (generalized anxiety disorder) Erectile dysfunction COPD (chronic obstructive pulmonary disease) CKD (chronic kidney disease), stage III CHF (congestive heart failure) CAD (coronary artery disease) Atrial fibrillation AAA (abdominal aortic aneurysm) Surgical History Surgical History History of AAA (abdominal aortic aneurysm) repair AICD (automatic cardioverter/defibrillator) present S/P CABG (coronary artery bypass graft) Four vessel CABG History of coronary artery stent placement 2 stents History of bladder surgery TURB procedure 2009 History of transcatheter aortic valve replacement (TAVR) Status post placement of cardiac pacemaker History of tonsillectomy and adenoidectomy History of aortic valve repair History of hernia repair incisional History of back surgery History of cholecystectomy History of heart valve replacement Family History Family History Father Family history of aortic aneurysm Acute myocardial infarction Mother Parkinsons disease Social History Social History Social History: The patient is and lives with his . The patient stated that he quit smoking many years ago. The patient has 4 children. His is his durable power sports attorney for health. He is a former smoker. He denies any alcohol marijuana or illicit drugs. 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 Code status full code Smoking packs per day: 2 Smoking cigarettes per day: 40.0 Years smoked: 45 Smoking pack-years: 90.00 Smoking status: Former smoker Second hand tobacco smoke exposure: No Alcohol intake: former Drinks per week: 3 Substance use: never Substance use type: does not use Lack of Transportation: No Lack of Food: Never True Current Housing: I Have Housing Concerned About Future Housing: No Difficulty Paying Gas/Electric Bills: No Difficulty Paying for Meds: No Currently Unemployed: No Education: Don't Know Difficulty w/ Childcare or Family Care: No Living arrangements: with family Additional living arrangements comments: . 4 Children. Occupation/Education: retired Additional occupation/education comments: Prior Occupation: [employer]. Gender identity (if verbalized by the patient): Male Spiritual care concerns: No Exam Narrative: Afebrile oxygen saturation of 96% on room air. Blood pressure 147/99 Const: General: no acute distress Orientation/consciousness: patient oriented x3 Limitations: no limitations HENMT: Head: normal to inspection Ears: external ears normal Face/Nose/Sinus: Normal external nose present Face and sinus: normal facial exam Throat: posterior oropharynx normal Eyes: Conjunctivae: conjunctivae normal Pupils: Equal, round and reactive pupils present EOM: EOMs intact bilaterally Direct Ophthalmoscopy: no photophobia Neck: Neck: normal visual inspection, no lymphadenopathy and no meningeal signs Chest: Chest palpation & inspection: normal inspection of the chest and abnormal inspection of the chest Resp: Effort & Inspection: normal respiratory effort Auscultation: clear to auscultation bilaterally Cardio: Rate: regular rate Rhythm: regular rhythm GI: GI Palp: Yes Soft to palpation Auscultation: normal bowel sounds Other: no tenderness/ rigidity/ rebound. : General: Yes no CVA tenderness Back/Spine/Pelvis: Back: no CVA tenderness Skin: Wounds: no wounds Other: Bilateral legs have chronic venous Neuro: General: patient oriented x3, moves all extremities, no meningeal signs, no focal motor deficits and CN's II-XI intact bilaterally Cranial nerves: Yes Nystagmus not present Speech: normal speech Extrem: General: normal to inspection and no clubbing, cyanosis or edema Psych: Mental Status: mental status grossly normal Affect: normal affect Course Course Emergency Course: generalized weakness with fatigue-- patient tested negative for influenza and COVID at his doctor's office. Blood work is unremarkable with normal white cell count, chronic anemia, renal insufficiency at baseline 26/1.3. CHF asymptomatically compensated. Chest x-ray did reveal minimal pulmonary edema with an elevation of proBNP 2 3034 diarrhea 4 days ago which has now resolved- abdominal examination is unremarkable. No current diarrhea. Patient has a normal white cell count Vital Signs Vital signs: Vital Signs Temperature 36.4 C 08/18/24 10:34 Pulse Rate 74 08/18/24 10:34 Respiratory Rate 18 08/18/24 10:34 Blood Pressure 147/99 H 08/18/24 10:34 Pulse Oximetry 96 08/18/24 10:34 Oxygen Delivery Room Air 08/18/24 10:34 Temperature 36.4 C 08/18/24 10:34 Pulse Rate 74 08/18/24 10:34 Respiratory Rate 18 08/18/24 10:34 Blood Pressure 149/75 H 08/18/24 11:46 Pulse Oximetry 96 08/18/24 11:46 Oxygen Delivery Room Air 08/18/24 10:34 Medical Decision Making MDM Narrative Medical decision making narrative: compensated CHF chronic anemia CKD Differential Diagnosis Differential Diagnosis: COPD, pneumonia Vital Signs Vital Signs: Vital Signs Temperature 36.4 C 08/18/24 10:34 Pulse Rate 74 08/18/24 10:34 Respiratory Rate 18 08/18/24 10:34 Blood Pressure 147/99 H 08/18/24 10:34 Pulse Oximetry 96 08/18/24 10:34 Oxygen Delivery Room Air 08/18/24 10:34 Temperature 36.4 C 08/18/24 10:34 Pulse Rate 74 08/18/24 10:34 Respiratory Rate 18 08/18/24 10:34 Blood Pressure 149/75 H 08/18/24 11:46 Pulse Oximetry 96 08/18/24 11:46 Oxygen Delivery Room Air 08/18/24 10:34 Lab Data 08/18/24 11:16 08/18/24 11:16 Labs: Lab Results 08/18/24 08/18/24 Range/Units 11:04 11:16 WBC 5.7 (4.8-10.8) K/mm3 RBC 3.73 L (4.70-6.10) M/mm3 Hgb 12.3 L (12.4-15.3) g/dL Hct 36.5 L (37.0-46.0) % MCV 97.9 (78.0-102.0) fL MCH 33.0 H (27.0-31.0) pg MCHC 33.7 (32-36) g/dL RDW 16.6 H (11.6-14.4) % Plt Count 101 L (150-420) K/mm3 MPV 9.1 (8.7-11.0) fl Immature Gran % (Auto) 0.2 H (0.0-0.0) % Neut % (Auto) 65.5 (50.0-70.0) % Lymph % (Auto) 19.2 (18.0-42.0) % Hemphill % (Auto) 11.8 H (2.0-11.0) % Eos % (Auto) 2.6 (1.0-6.0) % Baso % (Auto) 0.7 (0.0-1.0) % Lymph # (Auto) 1.09 L (1.10-4.50) K/mm3 Hemphill # (Auto) 0.67 (0.10-0.90) K/mm3 Eos # (Auto) 0.15 (0.02-0.50) K/mm3 Baso # (Auto) 0.04 (0.00-0.10) K/mm3 Abs Immat Gran (auto) 0.01 H (0.00-0.00) K/mm3 Absolute Neuts (auto) 3.71 (1.70-7.20) K/mm3 Absolute Nucleated RBC 0.00 (0.00-0.00) K/mm3 Nucleated RBC % 0.0 (0-0.0) % % Immature Plt Fraction 1.9 (1.0-7.0) % Sodium 140 (136-145) mmol/L Potassium 4.1 (3.5-5.1) mmol/L Chloride 101 (98-108) mmol/L Carbon Dioxide 29 (21-32) mmol/L Anion Gap 10 (4-12) mmol/L BUN 26 H (7-18) mg/dL Creatinine 1.63 H (0.70-1.30) mg/dL Estim Creat Clear Calc 32 ml/min Estimated GFR 41 L (59 - ) Glucose 143 H (70-99) mg/dL Calculated Osmolality 296 H (285-295) mOsm/kg Lactic Acid 2.0 (0.4-2.0) mmol/L Calcium 9.6 (8.5-10.1) mg/dL Magnesium 2.0 (1.8-2.4) mg/dL Total Bilirubin 1.1 H (0.00-1.00) mg/dL AST 14 L (15-37) U/L ALT 15 L (16-63) U/L Alkaline Phosphatase 42 L (46-116) U/L Troponin I 26.2 (0.00-60.4) ng/L NT-Pro-B Natriuret Pep 3034 H (0-450) pg/mL Total Protein 7.8 (6.4-8.2) g/dL Albumin 3.8 (3.4-5.0) g/dL Lipase 65 (16-77) U/L TSH 5.05 H (0.36-3.74) uIU/mL Urine Color Yellow (Yellow) Urine Appearance Clear (Clear) Urine pH 6.0 (5.0-8.0) Ur Specific Bradford 1.025 H (1.010-1.020) Urine Protein Negative (Negative) Urine Glucose (UA) Negative (Negative) Urine Ketones Negative (Negative) Ur Blood (Man) Negative (Negative) Urine Nitrate Negative (Negative) Urine Bilirubin Negative (Negative) Urine Urobilinogen 0.2 (0.2-1.0) mg/dL Leukocyte Esterase Rfl Negative (Negative) TESSIE/UL ECG Data EKG #1: ECG completion date: 08/18/24 ECG completion time: 11:23 Interpretation: atrial fibrillation, intermittently paced rhythm right bundle-branch block with left anterior hemiblock. No ST elevation. This is similar to a previous EKG done on 09/24/2023 Discharge Plan Discharge Clinical Impression: Anemia in CKD (chronic kidney disease), CKD (chronic kidney disease), stage III CHF (congestive heart failure) Qualifiers: Heart failure type: systolic Heart failure chronicity: acute on chronic Qualified Code(s): I50.23 - Acute on chronic systolic (congestive) heart failure Patient Disposition: Home, Self-Care Condition: Stable Instructions: Antibiotic Form, Heart Failure (ED), Chronic Kidney Disease (ED) Patient Language: Maltese Prescriptions: No Action allopurinol 100 mg tablet 100 mg PO DAILY trazodone 50 mg tablet 50 mg PO HS PRN (Reason: Insomnia) tramadol 50 mg tablet 50 mg PO TID Eliquis 2.5 mg tablet 2.5 mg PO BID furosemide [Lasix] 40 mg tablet 40 mg PO DAILY Qty: 3 0RF Rx Instructions: Additional dosage for 3 days tamsulosin [Flomax] 0.4 mg capsule 0.4 mg PO DAILY atorvastatin 40 mg tablet 40 mg PO DAILY pregabalin [Lyrica] 100 mg capsule 100 mg PO TID aspirin [Adult Low Dose Aspirin] 81 mg tablet,delayed release (DR/EC) 81 mg PO DAILY carvedilol [Coreg] 12.5 mg tablet 12.5 mg PO Q12H finasteride 5 mg tablet 5 mg PO DAILY furosemide 40 mg tablet 40 mg PO QAM pantoprazole [Protonix] 40 mg tablet,delayed release (DR/EC) 40 mg PO QAM 56 Days Qty: 56 0RF potassium chloride 20 mEq tablet extended release 40 meq PO DAILY Qty: 180 0RF Follow-up/Referrals: Ruddy Yang MD [Primary Care Provider] - Time of Disposition: 12:17
--- NOTE | 2024-08-18 11:04 | ECG_ITS ---
Test Date: 2024-08-18 11:23:07 Measurements Intervals [place] Rate: 77 P: 0 KS: 0 QRS: -84 QRSD: 158 T: 63 QT: 455 QTc: 515 Interpretive Statements ATRIAL FIBRILLATION WITH ABERRANT CONDUCTION OR VENTRICULAR PREMATURE COMPLEXES RIGHT BUNDLE BRANCH BLOCK [120+ ms QRS DURATION, UPRIGHT V1, 40+ ms S IN I/aVL/V4/V5/V6] Poor R wave progression INFERIOR MYOCARDIAL INFARCTION , PROBABLY OLD [40+ ms Q WAVE AND/OR ST/T ABNORMALITY IN II/aVF] No previous ECG available for comparison Electronically Signed On 08-18-2024 14:48:04 DUTY MANAGER by Viviana Brito M.D.
[2024-08-18 11:24] LABS: Basophils Absolute Auto 0.04 K/mm3 (0.00-0.10); Basophils Percent Auto 0.7 % (0.0-1.0); Eosinophils Absolute Auto 0.15 K/mm3 (0.02-0.50); Eosinophils Percent Auto 2.6 % (1.0-6.0); Hematocrit 36.5 % (37.0-46.0); Hemoglobin 12.3 g/dL (12.4-15.3); Immature Granulocyte Absolute 0.01 K/mm3 (0.00-0.00); Immature Granulocyte Percent A 0.2 % (0.0-0.0); Immature Platelet Fraction Pct 1.9 % (1.0-7.0); Lymphocytes Absolute Auto 1.09 K/mm3 (1.10-4.50); Lymphocytes Percent Auto 19.2 % (18.0-42.0); Mean Corpuscular HGB Conc 33.7 g/dL (32-36); Mean Corpuscular Volume 97.9 fL (78.0-102.0); Mean Platelet Volume 9.1 fl (8.7-11.0); Monocytes Absolute Auto 0.67 K/mm3 (0.10-0.90); Monocytes Percent Auto 11.8 % (2.0-11.0); Neutrophils Absolute Auto 3.71 K/mm3 (1.70-7.20); Neutrophils Percent Auto 65.5 % (50.0-70.0); Platelet Count Result 101 K/mm3 (150-420); Red Blood Count 3.73 M/mm3 (4.70-6.10); Red Cell Distribution Width 16.6 % (11.6-14.4); White Blood Count 5.7 K/mm3 (4.8-10.8)
[2024-08-18 11:31] VITALS: BP 129/61
[2024-08-18 11:46] VITALS: BP 149/75; O2SAT 96
[2024-08-18 11:50] LABS: Alanine Aminotransferase 15 U/L (16-63); Albumin Level 3.8 g/dL (3.4-5.0); Alkaline Phosphatase 42 U/L (46-116); Anion Gap 10 mmol/L (4-12); Aspartate Amino Transferase 14 U/L (15-37); Bilirubin,Total 1.1 mg/dL (0.00-1.00); Blood Urea Nitrogen 26 mg/dL (7-18); Calcium 9.6 mg/dL (8.5-10.1); Carbon Dioxide 29 mmol/L (21-32); Chloride 101 mmol/L (98-108); Estimated CRCL calculation 32 ml/min; Estimated Glomerular Filt Rate 41; Glucose 143 mg/dL (70-99); Lipase 65 U/L (16-77); NT Pro B Type Natriuretic Pept 3034 pg/mL (0-450); Osmolality Calculated 296 mOsm/kg (285-295); Potassium 4.1 mmol/L (3.5-5.1); Sodium 140 mmol/L (136-145); Thyroid Stimulating Hormone 5.05 uIU/mL (0.36-3.74); Total Protein 7.8 g/dL (6.4-8.2); Troponin I 26.2 ng/L (0.00-60.4)
[2024-08-18 11:53] LABS: Add Urine Microscopic? NO; Appearance Urine Clear (Clear); Bilirubin Urine Negative (Negative); Blood Urine Negative (Negative); Color Urine Yellow (Yellow); Glucose Urine UA Negative (Negative); Ketones Urine Negative (Negative); Leukocyte Esterase Ur Negative LEU/UL (Negative); Nitrate Urine Negative (Negative); Protein Urine Negative (Negative); Specific Grav Ur 1.025 (1.010-1.020); Urobilinogen Urine 0.2 mg/dL (0.2-1.0)
[2024-08-18 12:01] VITALS: BP 158/92; PULSE 70; RESP 18; O2SAT 97
[2024-08-18 12:30] VITALS: BP 148/80; PULSE 68; O2SAT 95
--- OUTSIDE RECORDS SUMMARY | 2024-08-25 22:28 | XMS_ITS | Continuity of Care Document ---
Author Organization [facility] [employer], [facility] Ranjith Marie Address [address] [place] [address] Care Team Providers Care Coating Mixer Supervisor Name Role Phone LYNDSAY BERNARD Primary Care Provider CHUCHO MIRANDA Accreditation Coordinator Assessment No assessment recorded. Plan of Treatment Reminders Order Date Submit Date Provider Last Modified By Organization Details Last Modified Time Details Appointments Post-O p 15 025 11:30AM Glen Mayen MD Not available Not available Not available Lab None record ed. Referral None record ed. Procedures None record ed. Surgeries None record ed. Imaging None record ed. Medication Orders None record ed. Patient TargetsNo targets recorded. Patient Instructions Encounter Date Encounter Id Patient Instructions Last Modified By Organization Details Last Modified Time 08/06/2024 [id number] it is unknown whether not he will pass his cardiac clearance and his son is concerned about the risk were dean in any case. We will set up open reduction nasal fracture until a decision is established [email or web address] Not available 08/06/2024 12:42:45 Reason for Referral None Reported. Problems Name Problem SNOMED Code Status Onset Date Resolution Date Notes Provider Name and Address Organization Details Recorded Time Closed fracture of nasal bones 70193724 Active 024 Glen Mayen MD [address] [facility] [address], [place], [address] , [facility] [employer] 12:42:25 Problem Notes None recorded. Procedures Surgical History Date Name Laterality Status Provider Name and Address Organization Details Recorded Time 08/26/19 13 cholecystectomy completed Malorie Elizabeth RN [facility] [email or web address] 08/06/2024 17:58:37 Imaging Results None recorded. Procedure Notes None recorded. Medical Equipment None Reported. Allergies Allergen ID Allergen Name Allergen Category Reaction Reaction Severity Criticality Documentation Date Start Date Code Code System Note Provider Name and Address Organization Details Recorded Time 49579 Oxycontin medicatio n Not available Not available Not available 08/06/2024 91658 6 RxNorm Malorie Elizabeth RN null, [place] [facility] 4 12:26:30 Medications Name Sig Start Date Stop Date Status Note LastModified by Organization Details LastModified Time amoxicillin 500 mg capsule 08/06 completed Not Available Not Available Not Available furosemide 40 mg tablet active Not Available Not Available No t Available atorvastatin 40 mg tablet active Not Available Not Available Not Available potassium chloride ER 10 mEq capsule,exten ded release active Not Available Not Available Not Available carvedilol 12.5 mg tablet active Not Available Not Available Not Available trazodone 50 mg tablet 08/06 completed Not Available Not Available Not Available azithromycin 250 mg tablet 08/06 completed Not Available Not Available Not Available donepezil 10 mg tablet 08/06 completed Not Available Not Available Not Available allopurinol 100 mg tablet active Not Available Not Availabl e Not Available aspirin 81 mg tablet,delaye d release Take 1 tablet every day by oral route. active Not Available Not Available No t Available tramadol 50 mg tablet active Not Available Not Available No t Available spironolacton e 25 mg tablet 08/06 completed Not Available Not Available Not Available prednisolone acetate 1 % eye drops,suspens ion 08/06 completed Not Available Not Available Not Available tamsulosin 0.4 mg capsule active Not Available Not Available Not Available doxycycline monohydrate 100 mg capsule 08/06 completed Not Available Not Available Not Available pantoprazole 40 mg tablet,delaye d release active Not Available Not Available No t Available nortriptyline 10 mg capsule active Not Available Not Availabl e Not Available furosemide 20 mg tablet active Not Available Not Available No t Available finasteride 5 mg tablet active Not Available Not Available No t Available duloxetine 60 mg capsule,delay ed release 08/06 completed Not Available Not Available Not Available pregabalin 50 mg capsule 08/06 completed Not Available Not Available Not Available pregabalin 100 mg capsule active Not Available Not Available Not Available Eliquis 2.5 mg tablet active Not Available Not Available No t Available Jardiance 10 mg tablet 08/06 completed Not Available Not Available Not Available Entresto 24 mg-26 mg tablet 08/06 completed Not Available Not Available Not Available Vitals Date Recorded Body weight Body mass index (BMI) Body height Body temperature Provider Name and Address Organization Details Last Updated DateTime 08/06/2024 15528.92 g 26.4 kg/m2 172.72 cm 98 [degF] Malorie Elizabeth RN [facility] 08/06/2024 12:24:19 Social History Question Answer Notes LastModified by Organizat ion Details LastModified Time Tobacco Smoking Status Former Smoker Malorie Elizabeth RN null, [facility] 08/06/2024 12:23:16 What Is Your Level Of Alcohol Consumption? Occasional [email or web address] Information not available 08/06/2024 Sex: Unknown Functional Status None recorded. Mental Status None recorded. Family History Relationship Description Onset Age of this Age Resolved Age Notes LastModified by Organization Details LastModified Time Father No current problems or disability [email or web address] Not available 08/06 12:20:50 Mother No current problems or disability [email or web address] Not available 08/06 12:20:50 Notes:NO ENT Medical History Condition Response HEART DISEASE/HEART PROBLEMS Y PACEMAKER Y HYPERTENSION Y Past Encounters Encounter ID Performer Location Encounter Start Date Encounter Closed Date Diagnosis/Indication Diagnosis SNOMED-CT Code Diagnosis ICD10 Code [id number] Glen Mayen MD [facility] [place] [address] [place] [address] 08/06/2024 11:56:02 08/20/2024 10:43:43 Closed fracture of nasal bones [id number] S02.2XXA Health Concerns Section Related Observation LastModified by Organization Detai ls LastModified Time None Recorded Concern Status LastModified by Organization Details LastModified Time None Recorded Payers Encounter Date Sequence Insurance Name Policy Number Policy De Jesus Covered Member ID De Jesus Member ID Guarantor Name 08/06/2024 1 [employer] (MEDICARE REPLACEMENT/A DVANTAGE - HMO) [id number] Jovan Rodas [id number] Jovan Rodas Notes Date Note Type Note Provider Name and Address Organization Details Recorded Time 08/06/2024 text/html This patient fel l and fractured his nose. There is a prominent external visible displacement of his nasal bones. He does have a significant cardiac history. Glen Mayen MD [address] [place] [address], [place], [address], [place] [facility] 08/06/2024 12:43:01
--- OUTSIDE RECORDS SUMMARY | 2024-08-25 22:28 | XMS_ITS | Data Portability ---
Author Organization [facility], Main Office Address [address] [place] [address] Care Team Providers Care Real Estate Administrator Name Role Phone LYNDSAY BERNARD Primary Care Provider [phone] CHUCHO MIRANDA Plastic Finisher Assessment No assessment recorded. Plan of Treatment [...] By Organization Details Last Modified Time 08/06/2024 [id number] it is unknown whether not he will [...] Recorded Time Closed fracture of nasal bones 89536629 Active 024 Glen Mayen MD [address] [facility] [address], [place], [address] , [facility] 12:42:25 Problem Notes None recorded. Procedures Surgical History Date Name Laterality Status Provider Name and Address Organization Details Recorded Time 08/26/19 13 cholecystectomy completed Malorie Elizabeth RN [facility] 08/06/2024 17:58:37 Imaging Results None recorded. Procedure Notes None recorded. Medical Equipment None Reported. Allergies Allergen ID Allergen Name Allergen Category Reaction Reaction Severity Criticality Documentation Date Start Date Code Code System Note Provider Name and Address Organization Details Recorded Time 77432 Oxycontin medicatio n Not available Not available Not available 08/06/2024 59041 6 RxNorm Malorie Elizabeth RN null, [place] - [facility] 12:26:30 Medications Name Sig Start Date Stop [...] No t Available Jardiance 10 mg tablet 12/12 /2024 completed Not Available Not Available Not Available Entresto 24 mg-26 mg tablet 08/06 completed Not Available Not Available Not Available Vitals Date Recorded Body weight Body mass index (BMI) Body height Body temperature Provider Name and Address Organization Details Last Updated DateTime 08/06/2024 23884.92 g 26.4 kg/m2 172.72 cm 98 [degF] Malorie Elizabeth RN [facility] 08/06/2024 12:24:19 Social History Question Answer Notes LastModified by Organizat ion Details LastModified Time Tobacco Smoking Status Former Smoker Malorie Elizabeth RN null, [facility] 08/06/2024 12:23:16 What Is Your Level Of [...] Diagnosis/Indication Diagnosis SNOMED-CT Code Diagnosis ICD10 Code [id number] Glen Mayen MD [facility] [place] [address] [place] [address] 08/06/2024 11:56:02 08/20/2024 10:43:43 Closed fracture of nasal bones 02179043 S02.2XXA Health Concerns Section Related Observation LastModified by Organization Detai ls LastModified Time None Recorded Concern Status LastModified by Organization Details LastModified Time None Recorded Advance Directives Directive None Recorded Payers Encounter Date Sequence Insurance Name Policy Number Policy De Jesus Covered Member ID De Jesus Member ID Guarantor Name 08/06/2024 1 [facility] (MEDICARE REPLACEMENT/A DVANTAGE - HMO) [id number] Jovan Rodas [id number] Jovan Rodas Notes Date Note Type Note Provider Name and Address Organization Details Recorded Time 08/06/2024 text/html This patient fel l and fractured his nose. There is a prominent external visible displacement of his nasal bones. He does have a significant cardiac history. Glen Mayen MD [address] [place] [address], [place], [address], [facility] 08/06/2024 12:43:01
--- OUTSIDE RECORDS SUMMARY | 2024-08-25 22:28 | XMS_ITS | Data Portability ---
Author Organization [facility], [address] [facility] ([place]) Address [address] [place] [address] Care Team Providers Care Firearms Expert Name Role Phone LYNDSAY BERNARD Primary Care Provider [phone] Assessment Encounter Date Assessment Date Assessment LastModified by Organization Details LastModified Time 04/30/2024 04/30/2024 The patient has idiopathic progressive polyneuropathy. We will stop the Lyrica. He will decrease the Lyrica to 100 mg daily for one week and then discontinue. We will try nortriptyline 10 mg q.h.s. for one week and then 20 mg q.h.s. He will follow up in six months, but he will call if he has any problems in the meantime. We will stop the pregabalin because he feels that it is not helpful. ELISABETH skaleiwahea Not available 04/30/2024 20:55:37 Plan of Treatment Reminders Order Date Submit Date Provider Last Modified By Organization Details Last Modified Time Details Appointments None recorded. Lab None recorded. Referral None recorded. Procedures None recorded. Surgeries None recorded. Imaging None recorded. Medication Orders nortriptyli ne 10 mg capsule 2023 024 [facility] [address], [id number], 14:03:08 Patient TargetsNo targets recorded. Patient InstructionsNo instructions recorded. Reason for Referral None Reported. Problems Name Problem SNOMED Code Status Onset Date Resolution Date Notes Provider Name and Address Organization Details Recorded Time Idiopathic progressive polyneuropathy 85943644 Active 2023 Mayra Rowell MD [address] [place] [address], [phone], [facility] 13:26:38 Notes:Some problems listed i n Document: #[id number] could not be added to this patient's chart. Please review this document and add these problems to the patient's chart manually as needed. Problem Notes None recorded. Medical Equipment None Reported. Allergies Allergen ID Allergen Name Allergen Category Reaction Reaction Severity Criticality Documentation Date Start Date Code Code System Note Provider Name and Address Organization Details Recorded Time [id number] [id number] 2824e Oxycontin medicatio n Not available Not available Not available 09/23/20232015 40437 6 RxNorm Comme nt: React ion Date: 30 Nov 2010 ; Not Available Not Available Not Available [id number] 0132558g9 2824e Substance with sulfonami de structure and antibacte rial mechanism of action (substanc e) medicatio n Not available Not available Not available 09/23/20232015 46583 8003 SNOMED Comme nt: React ion Date: 29 May 2011 ; Not Available Not Available Not Available Medications Name Sig Start Date Stop Date Status Note LastModified by Organization Details LastModified Time amoxicillin 500 mg capsule 04/30 completed Not Available Not Available Not Available furosemide 40 mg tablet 04/30 completed Not Available Not Available Not Available atorvastati n 40 mg tablet active Not Available Not Available Not Available potassium chloride ER 10 mEq capsule,ext ended release active Not Available Not Available Not Available carvedilol 12.5 mg tablet active Not Available Not Available Not Available trazodone 50 mg tablet active Not Available Not Available Not Available azithromyci n 250 mg tablet 04/30 completed Not Available Not Available Not Available donepezil 10 mg tablet 04/30 completed Not Available Not Available Not Available allopurinol 100 mg tablet active Not Available Not Available Not Available tramadol 50 mg tablet active Not Available Not Available No t Available spironolact one 25 mg tablet 04/30 completed Not Available Not Available Not Available tamsulosin 0.4 mg capsule active Not Available Not Available Not Available doxycycline monohydrate 100 mg capsule 04/30 completed Not Available Not Available Not Available pantoprazol e 40 mg tablet,rakan yed release active Not Available Not Available Not Available nortriptyli ne 10 mg capsule TAKE TWO CAPSULES BY MOUTH AT BEDTIME 2023 active Not Available Not Available Not Avai lable aspirin 81 mg chewable tablet Chew 1 tablet every day by oral route. active Not Available Not Available No t Available furosemide 20 mg tablet 04/30 completed Not Available Not Available Not Available finasteride 5 mg tablet active Not Available Not Available Not Available duloxetine 60 mg capsule,del ayed release 04/30 completed Not Available Not Available Not Available pregabalin 100 mg capsule active Not Available Not Available Not Available Vitamin D3 active Not Available Not Av ailable Not Available multivitami n active Not Available Not Available Not Available Eliquis 2.5 mg tablet active Not Available Not Available No t Available Jardiance 10 mg tablet 04/30 completed Not Available Not Available Not Available Entresto 24 mg-26 mg tablet active Not Available Not Available Not Available Vitals Date Recorded Body weight Body mass index (BMI) Body height Heart rate Systolic blood pressure Diastolic blood pressure Provider Name and Address Organization Details Last Updated DateTime 4 64265.7 4 g 24.7 kg/m2 173.99 cm 61 /min 124 mm[Hg] 68 mm[Hg] [facility] 4 13:10:51 Social History None recorded. Functional Status None recorded. Mental Status None recorded. Family History Nothing Reported. Medical History No medical history recorded. Past Encounters Encounter ID Performer Location Encounter Start Date Encounter Closed Date Diagnosis/Indication Diagnosis SNOMED-CT Code Diagnosis ICD10 Code [id number] Mayra Rowell MD [facility] ([place]) [address] [place] [address] 04/30/2024 13:03:23 05/03/2024 06:26:37 Idiopathic progressive polyneuropathy 74092829 G60.3 Health Concerns Section Related Observation LastModified by Organization Detai ls LastModified Time None Recorded Concern Status LastModified by Organization Details LastModified Time None Recorded Advance Directives Directive None Recorded Payers Encounter Date Sequence Insurance Name Policy Number Policy De Jesus Covered Member ID De Jesus Member ID Guarantor Name 04/30/2024 1 [facility] (MEDICARE REPLACEMENT/A DVANTAGE - PPO) [id number] Jovan Rodas [id number] Jovan Rodas Notes Date Note Type Note Provider Name and Address Organization Details Recorded Time 04/30/2024 text/html The patient is a n 84 -year-old male who returns today for followup of peripheral neuropathy. He was last seen in August of 2022. He states that he is still having intermittent episodes of sharp and burning pain in one foot or the other. This happens most days and lasts a couple of seconds each time. It does not usually happen more than once per day. He is currently on pregabalin 100 mg b.i.d. He feels that it is not helpful. He denies any side effects. He would like to stop the pregabalin. He has had two falls. Both occurred in the yard. He states that when he walks, he has to stop after about 25 yards. He has to stop for a few seconds and then he can walk again. He rarely uses a walker at home. He does not use a cane or a wheelchair.ELISABETH Rowell MD [address] [place] [address], [address], [facility] 05/01/2024 19:00:20
--- OUTSIDE RECORDS SUMMARY | 2024-08-26 00:11 | XMS_ITS | Encounter Summary ---
Author Organization [facility] Address [address] [place] [address]. [place], [place] [address] [place] [address] Care Team Providers Care Developer Evangelist Name Role Phone Jovan Beltran MD Unavailable UnavailPrashanth Weston MD Unavailable [phone] Mumtaz Ortega MD,PHD Unavailable Parviz Mcbride MD Unavailable Unavailable Deondre Nicolas MD Unavailable [phone] Shaan Whitt MD Unavailable [phone] Encounter Details Date Type Department Care Team (Latest Contact Info) Description 12/17/2017 Abstract [facility] Social History Tobacco Use Types Packs/Day Years Used Date Smoking Tobacco: Former Cigarettes Q uit: 04/2008 Smokeless Tobacco: Never Alcohol Use Standard Drinks/Week Comments Yes 0 (1 standard drink = 0.6 oz pur e alcohol) Occasionally Sex and Gender Information Value Date Recorded Sex Assigned at Not on file Legal Sex Male 8:46 PM CDT Gender Identity Not on file Sexual Orientation Not on file Occupation Industry Job Start Date Job End Date Retired Not on file Not on file Not on file documented as of this encounter Progress Notes * Generic Conversion MD Timo - 12/17/2017 10:51 AM CDT Message Recorded as Task Date: 12/06/2017 01:00 PM, Created By: Zonia Cummings Task Name: [facility] Back [facility] Regarding Patient: Jovan Rodas, Status: In Progress Comment: Zonia Cummings - 06 Dec 2017 1:00 PM TASK CREATED pt called and stated we are to call August's office and speak to Jenny at [phone] Zonia Cummings - 06 Dec 2017 1:43 PM TASK EDITED spoke to Jenny, all the pt wanted was to be seen by the doctor. she wanted to know if he could be seen soon and I informed her that the only way he could was if he came to our [place] office to [facility] instead of [place]. she had me give her a couple different dates and times and said she would call back once she spoke to the pt. Zonia Cummings - 06 Dec 2017 1:43 PM TASK EDITED Signatures Electronically signed by : Gely Saxena, ; Dec 17 2017 10:52AM ASSISTANT OPERATOR (Author) documented in this encounter Plan of Treatment Not on file documented as of this encounter Visit Diagnoses Not on filedocumented in this encounter Care Teams Developer Evangelist Relationship Specialty Start Date End Date Jovan Beltran MD [employer] President And Chief Executive Officer CLINICAL CARDIAC ELECTROPHYSIOLOGY 04/04/17 Prashanth Koch MD [address] [place] [address] [employer] President [employer] Chief Executive Officer CARDIOVASCULAR DISEASE 08/23/17 Mumtaz Ortega MD,PHD [address] [place] [address] [employer] Chief Executive Officer CARDIOTHORACIC SURGERY 09/13/17 01/21/20 Parviz Artis MD [address] [place] [address] CRITICAL CARE MEDICINE 10/18/17 01/21/20 Deondre Nicolas MD [address] [place], [place] [id number] NEUROLOGY 11/12/17 03/29/20 Shaan Whitt MD [address] [place] [address] UROLOGY 02/07/18 01/21/20 documented as of this encounter
== END 2024-08-18 12:32 | disposition home or self-care (01) ==
PROVIDERS: Emergency Provider Internal Medicine Critical Care Medicine; PCP Internal Medicine
DX: I13.0 Hypertensive heart and chronic kidney disease with heart failure and stage 1 through stage 4 chronic kidney disease, or unspecified chronic kidney disease (principal); I50.23 Acute on chronic systolic (congestive) heart failure; D63.1 Anemia in chronic kidney disease; N18.30 Chronic kidney disease, stage 3 unspecified; I48.91 Unspecified atrial fibrillation; I25.10 Atherosclerotic heart disease of native coronary artery without angina pectoris; I73.9 Peripheral vascular disease, unspecified; I25.2 Old myocardial infarction; G47.33 Obstructive sleep apnea (adult) (pediatric); E78.00 Pure hypercholesterolemia, unspecified; N40.0 Benign prostatic hyperplasia without lower urinary tract symptoms; K21.9 Gastro-esophageal reflux disease without esophagitis; D62 Acute posthemorrhagic anemia; F41.1 Generalized anxiety disorder; J44.9 Chronic obstructive pulmonary disease, unspecified; M10.9 Gout, unspecified; G62.9 Polyneuropathy, unspecified; Z95.810 Presence of automatic (implantable) cardiac defibrillator; Z95.1 Presence of aortocoronary bypass graft; Z95.5 Presence of coronary angioplasty implant and graft; Z95.4 Presence of other heart-valve replacement; Z79.01 Long term (current) use of anticoagulants; Z79.82 Long term (current) use of aspirin; Z87.891 Personal history of nicotine dependence
CPT/HCPCS: 36415; 71045; 80053; 81003; 83605; 83690; 83735; 83880; 84443; 84484; 85025; 85055; 93005; 99284

== ENCOUNTER 2024-10-09 11:11 | Outpatient (CLI) | payer MEDICARE, SELFPAY ==
--- NOTE | ~2024-10-09 | XR_ITS ---
XR chest 2V 10/09/2024 11:31 Indication: Dyspnea. Hypertension. Procedure: 2 view chest Comparison: Comparison to multiple prior studies sequentially, with oldest reviewed study dated 04/09. Findings: Status post median sternotomy for CABG. Cardiomegaly. Pacemaker leads are stable. Blunting left costophrenic recess which may represent effusion or pleural thickening. Left basilar atelectasis . No focal pneumonia. No pneumothorax. Impression: 1: Left basilar atelectasis with blunting of costophrenic recess which may represent small effusion o r pleural thickening. Reviewed, dictated and finalized at location B. Y LEVEL INSTALLATION TECHNICIAN Impression: 1: Left basilar atelectasis with blunting of costophrenic recess which may repr esent small effusion or pleural thickening.
--- OUTSIDE RECORDS SUMMARY | 2024-10-09 11:23 | XMS_ITS | Referral Summary ---
Author Organization [facility] [address] [facility] [address] Address [address] [place] [address] Care Team Providers Care Timber Cruiser Name Role Phone Ruddy Yang MD Primary Care Provider [phone] Allergies Active Allergy Reactions Criticality Noted Date Comments Donepezil Other (See comments) Low 03/04/2023 Oxycodone Hallucinations,Other (See comments) High 10/12/2014 Other reaction(s): Hallucinations, Other (See Comments), Other (see Comments) agitation agitation agitation agitation agitation agitation Other reaction(s): Hallucinations, Other (See Comments), Other (see Comments) agitation agitation agitation agitation Sulfa (Sulfonamide Antibiotics) Rash Medium 10/12/2014 Pt not sure Other reaction(s): Unknown, Vomiting Other reaction(s): Unknown, Vomiting Medications multivitamin capsule take 1 capsule by oral route every day 0 0 4 Active Additional Information Patient taking differently: 1 capsule oral Every morning, Indications: Vitamin Deficiency Prevention, Informant: Spouse/Significant Other, Reported on 07/16/2022 allopurinoL (ZYLOPRIM) 100 mg tabletIndication s:prevention of acute gout attack Take 1 tablet (100 mg total) by mouth every morning Active atorvastatin (LIPITOR) 40 mg tabletIndication s:hyperlipidemia Take 1 tablet (40 mg total) by mouth nightly Active furosemide (LASIX) 40 mg tabletIndication s:Edema,hyperten bobby Take 1 tablet (40 mg total) by mouth daily Active pregabalin (LYRICA) 100 mg capsuleIndicatio ns:PAIN Take 1 capsule (100 mg total) by mouth 3 (three) times a day Active tamsulosin (FLOMAX) 0.4 mg extended release capsuleIndicatio ns:benign prostatic hyperplasia with lower urinary tract sx Take 1 capsule (0.4 mg total) by mouth every morning Active traZODone (DESYREL) 50 mg tabletIndication s:insomnia associated with depression Take 1 tablet (50 mg total) by mouth nightly as needed Active carvediloL (COREG) 12.5 mg tabletIndication s:hypertension Take 1 tablet (12.5 mg total) by mouth 2 (two) times a day with meals Active cholecalciferol (VITAMIN D-3) 25 mcg (1,000 unit) tabletIndication s:Vitamin D Deficiency Take 1 tablet (1,000 Units total) by mouth every morning Active finasteride (PROSCAR) 5 mg tablet Take 1 tablet (5 mg total) by mouth daily Active pantoprazole DR (PROTONIX) 40 mg EC tabletIndication s:Treatment of Non-Bleeding Gastric Disorder Take 1 tablet (40 mg total) by mouth every morning Active Eliquis 2.5 mg tabletIndication s:atrial fibrillation Take 1 tablet (2.5 mg total) by mouth 2 (two) times a day 2 Active traMADoL (ULTRAM) 50 mg tabletIndication s:Neuropathic Pain Take 1 tablet (50 mg total) by mouth 3 (three) times a day 2 Active aspirin 81 mg enteric coated tablet Take 1 tablet (81 mg total) by mouth daily Active potassium chloride ER 10 mEq CR capsule Take 1 tablet/capsule (10 mEq total) by mouth first sampler before breakfast 4 Active Active Problems Problem Noted Date Diagnosed Date Elective replacement of impl antable cardioverter-defibrillator (ICD) battery required 10/01/2023 Sensorineural hearing loss (SNHL) of both ears 1 09/02/2022 Assessment & Plan (07/03/2023 10:35 AM LABORER SAWMILL): Hearing test Flonase 2 sprays into each nostril while looking down over the sink, do not sniff in or blow nose after use for at least 30 minutes daily Talk to PCP about left ear lesion Recommend Left ear lesion excision with Frozen section and possible graft repair Risks and complications: Anesthesia, bleeding, infection, benign versus malignant pathology, recurrence of lesion, injury to arteries, nerves and veins, scarring and need for further treatment Lesion of skin of left ear 07/03/2023 Assessment & Plan (07/03/2023 10:35 AM LABORER SAWMILL): Hearing test Flonase 2 sprays into each nostril while looking down over the sink, do not sniff in or blow nose after use for at least 30 minutes daily Talk to PCP about left ear lesion Recommend Left ear lesion excision with Frozen section and possible graft repair Risks and complications: Anesthesia, bleeding, infection, benign versus malignant pathology, recurrence of lesion, injury to arteries, nerves and veins, scarring and need for further treatment Stage 3b chronic kidney disease 03/17/2023 PAD (peripheral artery disease) 03/17/2023 Garbled speech 03/17/2023 Osteomyelitis of foot, right, acute (CMS/HCC) Non-healing wound of lower extremity 07/11/2022 Overview (07/11/2022): Added automatically from request for surgery [id number] Pain associated with wound 06/28/2022 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 Dx; CHF, SSS. Afib, AV Node Ablation. DOI 10/28/2023- Lynette. Chronic leads 05/25/2015. [place] remote monitoring. LV lead is a [employer] lead and therefore the device is Not MRI conditional d/t [employer] products. Dr Jovan Beltran-original device implanter in 2014. Osteoarthritis of lumbar spine 08/10/2015 Hypertension 01/29/2014 Overview (11/30/2016): High blood pressure Chronic coronary artery disease 01/29/2014 Overview (11/30/2016): Coronary artery disease Chronic obstructive pulmonary disease 01/29/2014 Overview (11/30/2016): COPD Hypercholesterolemia 01/29/2014 Overview (11/30/2016): High cholesterol Lumbago 02/04/2009 Immunizations Name Administration Dates Next Due Influenza, Trivalent, Preservative Free, Intramu scular 04/26/2015,06/26/2014 Social History Tobacco Use Types Packs/Day Years Used Date Smoking Tobacco: Former Cigarettes Q uit: 2007 Smokeless Tobacco: Former Chew Quit: 1970 Tobacco Cessation:Counseling Given: Not Answered Alcohol Use Standard Drinks/Week Comments No 0 (1 standard drink = 0.6 oz pur e alcohol) AUDIT-C Answer Date Recorded Q1: How often do you have a drink containing alc ohol? 2-4 times a month 10/28/2023 Q2: How many drinks containi ng alcohol do you have on a typical day when you are drinking? 1 or 2 10/28/2023 Q3: How often do you have si x or more drinks on one occasion? Never 10/28/2023 Personal Safety Answer Date Recorded Have you ever been in or are you currently in a harmful physical or emotional relationship or is someone making you feel afraid or unsafe? Denies 10/28/2023 Sex and Gender Information Value Date Recorded Sex Assigned at Not on file Legal Sex Male 1:59 AM [employer] [facility] Gender Identity Not on file Sexual Orientation Not on file Last Filed Vital Signs Vital Sign Reading Time Taken Comments Blood Pressure 118/70 02/11/2024 11:24 AM CDT Pulse 60 02/11/2024 11:24 AM CDT Temperature 36.1 C (97 F) 10/28/2023 1:26 PM LABOR[facility]LL Respiratory Rate 20 10/28/2023 2:35 PM [employer] Oxygen Saturation 95% 02/11/2024 11:24 AM CDT Inhaled Oxygen Concentration - - Weight 77.1 kg (170 lb) 02/11/2024 11:24 AM CDT Height 172.7 cm (5' 8 ) 02/11/2024 11:24 AM CDT Body Mass Index 25.85 02/11/2024 11:24 AM CDT Plan of Treatment Not on file Medical Devices Implanted Type Area Lvn Home Health Device Identifier Shelf Expiration Date Model / Serial / Lot Icd ICD Heart Pacemaker Pacemaker Heart Description:PACEMAKER/ICD Stent Implanted:Qty: 2 Stent Heart [facility] Defib Cardiac [id number] [place] Hf Df4 Is-4 Is-1 Cnctr [id number] - [id number] - [id number] Implanted:Qty: 1 on 10/28/2023 by Eric Ojeda MD at [facility] 08/25/2025 [id number] / [id number] / Insurance MEDICARE SOLUTIONS MEDICARE FOR[facility]LY [facility] MEDICARE SOLUTIONS MEDICARE SOLUTIONS Care Teams Timber Cruiser Relationship Specialty Start Date End Date Ruddy Yagn MD [address] [place] [address] PCP - General Internal Medicine 01/02/21
--- OUTSIDE RECORDS SUMMARY | 2024-10-09 11:23 | XMS_ITS | Clinical Summary ---
Author Organization [facility] Address [address], [facility] [address] [place] [address] Phone Care Team Providers Care Cloth Doffer Name Role Phone Provider, Not On File Primary Care Provider Unav ailable Allergies Active Allergy Reactions Criticality Noted Date Comments Oxycodone Hcl Hallucinations,Other (see Comments) High 02/16/2018 agitation Sulfa Antibiotics Vomiting Medium 02/27/2017 Medications allopurinol (ZYLOPRIM) 100 MG Tablet Take 100 mg by mouth daily. Active atorvastatin (LIPITOR) 40 MG Tablet Take 40 mg by mouth daily. Active traMADol (ULTRAM) 50 MG Tablet Take 50 mg by mouth 3 times daily. Active Acetaminophen (TYLENOL PO) Take 1,000 mg by mouth 3 times daily. Active traZODone (DESYREL) 50 MG Tablet Take 50 mg by mouth nightly as needed for Sleep. Active Aspirin 81 MG Tablet Take 81 mg by mouth every evening. Active Multiple Vitamins-Minera ls (MULTIVITAL PO) Take by mouth. Active carvedilol (COREG) 12.5 MG Tablet Take 12.5 mg by mouth 2 times daily. 12/31/2017 Active tamsulosin (FLOMAX) 0.4 MG Capsule 03/17/2017 Active pregabalin (LYRICA) 100 MG Capsule TAKE 1 CAPSULE BY MOUTH THREE TIMES DAILY 11/28/2018 Active apixaban (Eliquis) 2.5 MG Tablet Take 2.5 mg by mouth 2 times daily. Active pantoprazole (Protonix) 40 MG Tablet Delayed Response Take 40 mg by mouth daily. Active finasteride (PROSCAR) 5 MG Tablet Take 5 mg by mouth daily. Active Empagliflozin (JARDIANCE) 10 MG Tablet Take 1 Tablet by mouth daily. 30 Tablet 09/27/2023 Active spironolactone (ALDACTONE) 25 MG Tablet Take 1 Tablet by mouth daily. 90 Tablet 09/27/2023 Active furosemide (LASIX) 40 MG Tablet Take 1 Tablet by mouth every morning. 90 Tablet 09/26/2023 Active potassium chloride (MICRO-K) 10 MEQ Capsule CR Take 2 Capsules by mouth daily. 60 Capsule 09/26/2023 Active Active Problems Patient Care Coordination No te Formatting of this note migh t be different from the original. 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 Patient declined 09/24/2023 Social Connection and Isolation Panel [NHANES] A nswer Date Recorded In a typical week, how many times do you talk on the phone with family, friends, or neighbors? Patient declined 09/24/2023 How often do you get togethe r with friends or relatives? Patient declined 09/24/2023 How often do you attend adventism or protestant serv ices? Patient declined 09/24/2023 Do you belong to any clubs o r organizations such as adventism groups, unions, fraternal or athletic groups, or school groups? Patient declined 09/24/2023 How often do you attend meet ings of the clubs or organizations you belong to? Patient declined 09/24/2023 Are you , , di vorced, , never , or living with a partner? Patient declined 09/24/2023 AUDIT-C Answer Date Recorded Q1: How often do you have a drink containing alc ohol? Patient declined 09/24/2023 Q2: How many drinks containi ng alcohol do you have on a typical day when you are drinking? Patient declined 09/24/2023 Q3: How often do you have si x or more drinks on one occasion? Patient declined 09/24/2023 Overall Financial Resource Strain (CARDIA) Answe r Date Recorded How hard is it for you to pa y for the very basics like food, housing, medical care, and heating? Patient declined 09/24/2023 PHQ-2 Answer Date Recorded PHQ-2 Score 0 04/27/2019 [facility] - Occupational Stress Questionnaire Answer Date Recorded Do you feel stress - tense, restless, nervous, or anxious, or unable to sleep at night because your mind is troubled all the time - these days? Patient declined 09/24/2023 Exercise Vital Sign Answer Date Recorde d On average, how many days pe r week do you engage in moderate to strenuous exercise (like a brisk walk)? 0 days 09/24/2023 On average, how many minutes do you engage in exercise at this level? 0 min 09/24/2023 Hunger Vital Sign Answer Date Recorded Within the past 12 months, y ou worried that your food would run out before you got the money to buy more. Patient declined Within the past 12 months, t he food you bought just didn't last and you didn't have money to get more. Patient declined PRAPARE - Transportation Answer Date Re corded In the past 12 months, has l ack of transportation kept you from medical appointments or from getting medications? Patient declined 09/24/2023 In the past 12 months, has l ack of transportation kept you from meetings, work, or from getting things needed for daily living? Patient declined 09/24/2023 Housing Stability Vital Sign Answer Ayush e Recorded In the last 12 months, was t here a time when you were not able to pay the mortgage or rent on time? Patient declined 09/24/19 24 In the last 12 months, how many places have you lived? 1 09/24/2023 In the last 12 months, was t here a time when you did not have a steady place to sleep or slept in a retirement (including now)? Patient declined 09/24/2023 Sex and Gender Information Value Date Recorded Sex Assigned at Not on file Legal Sex Male 2:21 PM VEHICLE REFINISHER Gender Identity Not on file Sexual Orientation Not on file Last Filed Vital Signs Vital Sign Reading Time Taken Comments Blood Pressure 150/84 09/26/2023 8:00 AM VEHICLE REFINISHER Pulse 74 09/26/2023 8:00 AM VEHICLE REFINISHER Temperature 35.9 C (96.7 F) 09/26/2023 8:33 AM VEHICLE REFINISHER Respiratory Rate 20 09/26/2023 8:00 AM VEHICLE REFINISHER Oxygen Saturation 97% 09/26/2023 8:0 0 AM VEHICLE REFINISHER Inhaled Oxygen Concentration - - Weight 77.5 kg (170 lb 12.8 oz) 09/26/2023 5:55 AM VEHICLE REFINISHER daily weight Height 172.7 cm (5' 8 ) 09/24/2023 3:06 PM VEHICLE REFINISHER Body Mass Index 25.97 09/24/2023 3:06 PM VEHICLE REFINISHER Plan of Treatment Health Maintenance Due Date Last Done Comments Hepatitis C Virus (HCV) Screening 1940 Pneumococcal Immunization (50+ years) (1 of 2 - PCV) 1960 Zoster Immunization (1 of 2) 1991 Respiratory Syncytial Virus (RSV) Immunization (Adult) (1 - 1-dose 75+ series) 2016 Influenza Immunization (#1) 2024 09/0 08/2022, 05/21/2022, 04/19/2021, Additional history exists SARS-COV-2 Immunization ( - season) 2024 11/09/2020, 10/19/2020 DTaP/Tdap/Td Immunization Discontinued 06/28/2020 TdaP Immunization Completed 06/28/2020 Hepatitis B Immunization Aged Out No longer eligible based on patient's age to complete this topic Meningococcal Immunization (ACWY) Aged Out No longer eligible based on patient's age to complete this topic Rotavirus Immunization Aged Out No lo nger eligible based on patient's age to complete this topic Insurance [facility] MEDICARE [facility] MEDICARE C [facility] Advance Directives * Full Code (Latest Code Status on File) Date Activated Date Inactivated Comments 09/24/2023 4:08 PM 09/26/2023 3:01 PM CPR-Full Cristiane tment: FULL ARREST: Attempt Resuscitation/CPR wit intubation and mechanical ventilation. PRE-ARREST: Use entire range of life support measures to stabilize the patient. Care Teams Cloth Doffer Relationship Specialty Start Date End Date Provider, Not On File [place] PCP - General 09/26/23
--- OUTSIDE RECORDS SUMMARY | 2024-10-09 11:23 | XMS_ITS | Encounter Summary ---
Author Organization [facility] Address [address] [place] [address] Care Team Providers Care General Labor Name Role Phone Jovan Beltran MD Unavailable UnavailPrashanth Weston MD Unavailable [phone] Mumtaz Ortega MD,PHD Unavailable Parviz Mcbride MD Unavailable Unavailable Deondre Nicolas MD Unavailable [phone] Shaan Whitt MD Unavailable [phone] Myrna Robles PLASTIC BOAT BUFFER Unavailable Unavailable Vero Victor FRAME AND SCRAP CRUSHER Unavailable [phone] Phillip Hammer DO Primary Care Provider [phone] Ruddy Yang MD Primary Care Provider [phone] Hany Geller DPM Unavailable [phone] Jovan Weathers DPM Unavailable [phone] Sydney Lazaro MD Unavailable [phone] Encounter Details Date Type Department Care Team (Late st Contact Info) Description 11/09/2017 Abstract [facility] CONVERSION [address] [place] [address] , Generic Conversion, Social History Tobacco Use Types Packs/Day Years [...] on file documented as of this encounter Plan of Treatment Not on file documented as of this encounter Visit Diagnoses Not on filedocumented in this encounter Additional Health Concerns Infection Onset Date Last Indicated Resolved Time 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 12/19/2023 documented as of this encounter Care Teams General Labor Relationship Specialty Start Date End Date Phillip Hammer DO [address] [place] [address] PCP - General FAMILY PRACTICE 01/22/20 02/29/20 Ruddy Yang MD [address] [place] [id number] PCP - General INTERNAL MEDICINE 03/01/20 Jovan Beltran MD [place] [employer] CLINICAL CARDIAC ELECTROPHYSIOLOGY 04/04/17 Prashanth Koch MD [address] [place] [address] [place] [facility] CARDIOVASCULAR DISEASE 08/23/17 Mumtaz Ortega MD,PHD [address] [place] [address] [place] [employer] CARDIOTHORACIC SURGERY 09/13/17 01/21/20 Parviz Artis MD [address] [place] [address] CRITICAL CARE MEDICINE 10/18/17 01/21/20 Deondre Nicolas MD [address] [place] [address] NEUROLOGY 11/12/17 03/29/20 Shaan Whitt MD [address] [place] [address] UROLOGY 02/07/18 01/21/20 Myrna Robles PLASTIC BOAT BUFFER [address] [place] [address] Referring Physician CARDIOVASCULAR DISEASE 05/01/18 Vero Victor, FRAME AND SCRAP CRUSHER [address] [place] [address] FAMILY PRACTICE 09/30/18 Hany Geller DPM [facility] [place] [address] Consulting Physician PODIATRY/SURGERY 12/06/22 12/07/23 Jovan Weathers DPM [facility] [place] [address] Consulting Physician PODIATRY 02/28/23 02/29/24 Sydney Lazaro MD [address] [place] [phone] Internal Medicine - Infectious Disease 02/28/23 02/29/24 documented as of this encounter
--- OUTSIDE RECORDS SUMMARY | 2024-10-09 11:23 | XMS_ITS | Patient Health Summary ---
Author Organization [facility] Address [address] [place] [address] Care Team Providers Care Pony Worker Name Role Phone Ruddy Yang MD Primary Care Provider [phone] Note from [facility],non-owned Affiliates and Associated Physician Practices is amultiple site organization consisting of ambulatory clinics and hospital sitesin [place], [place], [place] and [place]. This disclosure is being madepursuant to the Care Everywhere program and may not contain all information available regarding this patient. Last updated 18.[facility] Medications * Be aware that medications may not be up to date on this document. Alwaysverify current medications with the patient. * atorvastatin (Lipitor) 40 MG tablet Take 1 (one) tablet by mouth at bedtime * carvedilol (Coreg) 12.5 MG tablet Take 1 (one) tablet by mouth 2 times daily with morning and evening meal * apixaban (Eliquis) 2.5 MG tablet Take 1 (one) tablet by mouth 2 times daily * furosemide (Lasix) 80 MG tablet Take 1 (one) tablet by mouth once daily * pantoprazole (Protonix) 40 MG packet Take 1 (one) packet by mouth once daily * traMADol (Ultram) 50 MG tablet Take 1 (one) tablet by mouth every 6 hours as needed for Pain * tamsulosin (Flomax) 0.4 MG capsule Take 1 (one) capsule by mouth once daily At the same time every day after a meal. * traZODone (Desyrel) 50 MG tablet Take 1 (one) tablet by mouth * multivitamin daily tablet Take 1 (one) tablet by mouth daily with food * DULoxetine (Cymbalta) 60 MG capsule(Started 04/20/2024) Take 1 (one) capsule by mouth once daily 4 refills by 04/20/2025 * donepezil (Aricept) 10 MG tablet(Started 04/20/2024) Take 1 (one) tablet by mouth once daily 4 refills by 04/20/2025 Social History Tobacco Use Types Packs/Day Years Used Date Smoking Tobacco: Never Assessed Sex and Gender Information Value Date Recorded Sex Assigned at Not on file Gender Identity Not on file Sexual Orientation Not on file Last Filed Vital Signs Vital Sign Reading Time Taken Comments Blood Pressure 133/79 04/20/2024 2:37 PM CDT Pulse 64 04/20/2024 2:37 PM CDT Temperature - - Respiratory Rate - - Oxygen Saturation - - Inhaled Oxygen Concentration - - Weight 77.1 kg (170 lb) 04/20/2024 2:37 PM CDT Height - - Body Mass Index - - Care Teams Pony Worker Relationship Specialty Start Date End Date Ruddy Yang MD PCP - General 07/08/20
--- OUTSIDE RECORDS SUMMARY | 2024-10-09 11:23 | XMS_ITS | Encounter Summary ---
Author Organization [facility] Address [facility] [place] [address] Care Team Providers Care Manager Adobe Name Role Phone Jovan Beltran MD Unavailable UnavailPrashanth Weston MD Unavailable [phone] Mumtaz Ortega MD,PHD Unavailable Parviz Mcbride MD Unavailable Unavailable Deondre Nicolas MD Unavailable [phone] Shaan Whitt MD Unavailable [phone] Myrna Robles DERRICK BOAT CAPTAIN Unavailable Unavailable Vero Victor GOLF CART MAKER Unavailable [phone] Phillip Hammer DO Primary Care Provider [phone] Ruddy Yang MD Primary Care Provider [phone] Hany Geller DPM Unavailable [phone] Jovan Weathers DPM Unavailable [phone] Sydney Lazaro MD Unavailable [phone] Encounter Details Date Type Department Care Team (Late st Contact Info) Description 01/31/2019 Abstract [facility] CONVERSION [address] [place] [address] , Generic Conversion, Social History Tobacco Use [...] file Not on file Not on file Not on file Not on file Not on file Not on file documented as of this encounter Plan of Treatment Not on file documented as of this encounter Visit Diagnoses Not on filedocumented in this encounter Additional Health Concerns Infection Onset Date Last Indicated Resolved Time 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 12/19/2023 documented as of this encounter Care Teams Manager Adobe Relationship Specialty Start Date End Date Phillip Hammer DO [address] [place] [address] PCP - General FAMILY PRACTICE 01/22/20 02/29/20 Ruddy Yang MD [address] [place] [id number] PCP - General INTERNAL MEDICINE 03/01/20 Jovan Beltran MD [place] [employer] CLINICAL CARDIAC ELECTROPHYSIOLOGY 04/04/17 Prashanth Koch MD [address] [place] [address] [place] [employer] CARDIOVASCULAR DISEASE 08/23/17 Mumtaz Ortega MD,PHD [address] [place] [address] [place] [employer] CARDIOTHORACIC SURGERY 09/13/17 01/21/20 Parviz Artis MD [address] [place] [address] CRITICAL CARE MEDICINE 10/18/17 01/21/20 Deondre Nicolas MD [address] [place] [address] NEUROLOGY 11/12/17 03/29/20 Shaan Whitt MD [address] [place] [address] UROLOGY 02/07/18 01/21/20 Myrna Robles, DERRICK BOAT CAPTAIN [address] [place] [address] Referring Physician CARDIOVASCULAR DISEASE 05/01/18 Vero Victor FNP [address] [place], [place] [id number] FAMILY PRACTICE 09/30/18 Hany Geller DPM [address] [place] [address] Consulting Physician PODIATRY/SURGERY 12/06/22 12/07/23 Jovan Weathers DPM [address] [place] [address] [place] [address] Consulting Physician PODIATRY 02/28/23 02/29/24 Sydney Lazaro MD [address] [place] [phone] Internal Medicine - Infectious Disease 02/28/23 02/29/24 documented as of this encounter
--- OUTSIDE RECORDS SUMMARY | 2024-10-09 11:23 | XMS_ITS | Referral Summary ---
Author Organization [facility] [employer] Address [address] [place] [address] Care Team Providers Care Maintenance Dispatcher Name Role Phone Ruddy Yang MD Primary Care Provider [phone] Source Comments [facility] [employer],non-owned Affiliates and Associated Physician Practices is amultiple site organization consisting of ambulatory clinics and hospital sitesin [place], [place], [place] and [place]. This disclosure is being madepursuant to the Care Everywhere program and may not contain all information available regarding this patient. Last updated 18.[employer] Medications * Be aware that medications may not be up to date on this document. Alwaysverify current medications with the patient. Medication Sig Dispensed Refills Start Date End Date Status atorvastatin (Lipitor) 40 MG tablet Take 1 (one) tablet by mouth at bedtime Active carvedilol (Coreg) 12.5 MG tablet Take 1 (one) tablet by mouth 2 times daily with morning and evening meal Active apixaban (Eliquis) 2.5 MG tablet Take 1 (one) tablet by mouth 2 times daily Active furosemide (Lasix) 80 MG tablet Take 1 (one) tablet by mouth once daily Active pantoprazole (Protonix) 40 MG packet Take 1 (one) packet by mouth once daily Active traMADol (Ultram) 50 MG tablet Take 1 (one) tablet by mouth every 6 hours as needed for Pain Active tamsulosin (Flomax) 0.4 MG capsule Take 1 (one) capsule by mouth once daily At the same time every day after a meal. Active traZODone (Desyrel) 50 MG tablet Take 1 (one) tablet by mouth Active multivitamin daily tablet Take 1 (one) tablet by mouth daily with food Active DULoxetine (Cymbalta) 60 MG capsule Take 1 (one) capsule by mouth once daily 90 capsule 4 04/20/2024 Active donepezil (Aricept) 10 MG tablet Take 1 (one) tablet by mouth once daily 90 tablet 4 04/20/2024 Active Social History Tobacco Use Types Packs/Day Years [...] - - Body Mass Index - - Plan of Treatment Not on file Care Teams Maintenance Dispatcher Relationship Specialty Start Date End Date Ruddy Yang MD PCP - General 07/08/20
--- OUTSIDE RECORDS SUMMARY | 2024-10-09 11:23 | XMS_ITS | Clinical Summary ---
Author Organization [facility] Address [address] [facility] [place] [address] Phone Care Team Providers Care Tie Bucker Name Role Phone Unavailable Primary Care Provider Unavailabl e Allergies Active Allergy Reactions Criticality Noted Date Comments Oxycodone Hallucination,Other (See Comments) High 10/12/2014 agitation agitation Sulfa (Sulfonamide Antibiotics) Unknown 10/12/2014 Medications aspirin-calcium carbonate 81 mg-300 mg calcium(777 mg) Tablet Take 81 mg by mouth. Active carvediloL (COREG) 12.5 mg tablet 0 Active traZODone (DESYREL) 50 mg tablet Take 50 mg by mouth. 9 Active allopurinoL (ZYLOPRIM) 100 mg tablet 0 Active atorvastatin (LIPITOR) 40 mg tablet 1 Active traMADoL (ULTRAM) 50 mg tablet Take 50 mg by mouth every 6 hours as needed. 0 Active tamsulosin (FLOMAX) 0.4 mg capsule 0 Active pregabalin (LYRICA) 100 mg Capsule TAKE 1 CAPSULE BY MOUTH THREE TIMES DAILY 9 Active potassium chloride (KLOR-CON) 20 mEq Extended Release tablet 0 Active furosemide (LASIX) 20 mg tablet 0 Active finasteride (PROSCAR) 5 mg tablet 0 Active multivitamins with minerals (Multiple Vitamin-Mineral s) Tablet Take by mouth. Activ e apixaban (ELIQUIS) 5 mg tablet Take by mouth 2 times daily. Active fluticasone propionate (FLONASE) 50 mcg/spray [place], Suspension nasal inhaler Administer 2 Sprays in each nostril daily. Active ipratropium bromide (ATROVENT) 42 mcg (0.06 %) [place], Non-Aerosol Administer 2 Sprays in each nostril 2 times daily with meals. Active ferrous sulfate 325 mg (65 mg iron) tablet Take 325 mg by mouth daily. Active aspirin (ECOTRIN EC) 81 mg Tablet, Delayed Release (E.C.) Take 81 mg by mouth. Active cholecalciferol , vitamin D3, 1,000 unit Take 1,000 Units by mouth daily. Active pantoprazole (PROTONIX) 40 mg Tablet, Delayed Release (E.C.) Take 40 mg by mouth daily. Active furosemide (LASIX) 40 mg tablet Take 1 tablet po in the morning and 0.5 tablet po in the evening. Active cilostazoL (PLETAL) 50 mg Tablet Take 50 mg by mouth 2 times daily. Active Active Problems Problem Noted Date Diagnosed Date Stage 3b chronic kidney disease 01/09/2021 Anemia of chronic renal failure, stage 3b 2020 Family History Medical History Relation Name Comments Heart Disease Father High Cholesterol Father Relation Name Status Comments Father Social History Tobacco Use Types Packs/Day Years Used Date Smoking Tobacco: Former Cigarettes 1 50 0 [birth year]26[birth year]1957 - 08/26/2007 Smokeless Tobacco: Never Alcohol Use Standard Drinks/Week Comments Yes 0 (1 standard drink = 0.6 oz pur e alcohol) Sex and Gender Information Value Date Recorded Sex Assigned at Not on file Legal Sex Male 11:34 AM CONVEYOR LINE BAKERY WORKER Gender Identity Not on file Sexual Orientation Not on file Last Filed Vital Signs Vital Sign Reading Time Taken Comments Blood Pressure 140/77 10/22/2022 10:05 AM CONVEYOR LINE BAKERY WORKER Pulse 70 10/22/2022 10:01 AM CONVEYOR LINE BAKERY WORKER Temperature 35.7 C (96.3 F) 10/22/2022 10:01 AM CONVEYOR LINE BAKERY WORKER Respiratory Rate 10 10/22/2022 10:0 1 AM CONVEYOR LINE BAKERY WORKER Oxygen Saturation 98% 10/22/2022 10: 01 AM CONVEYOR LINE BAKERY WORKER Inhaled Oxygen Concentration - - Weight 81.5 kg (179 lb 11.2 oz) 023 10:01 AM CONVEYOR LINE BAKERY WORKER Height 172.7 cm (5' 8 ) 03/21/2022 11:1 3 AM CDT Body Mass Index 27.32 03/21/2022 11:13 AM CDT Plan of Treatment Health Maintenance Due Date Last Done Comments DTAP/TDAP/TD VACCINES (1 - Tdap) 1959 PNEUMOCOCCAL VACCINE 65+ YEA RS (1 of 2 - PCV) 1960 ZOSTER VACCINE (1 of 2) 1991 RSV VACCINE (60+ or ) (1 - 1-dose 75+ series) 2016 INFLUENZA VACCINE (#1) 2024 2, 06/21/2020, 05/26/2019, Additional history exists COLORECTAL SCREENING Discontinued 07/05/2020 Colorectal Cancer Screening Discontinued FIT-DNA Q 3 years Discontinued FIT/FOBT Q 1 year Discontinued Flex Sig/CT Colonography Q 5 years Discontinued Insurance [place] [id number]
--- OUTSIDE RECORDS SUMMARY | 2024-10-09 11:23 | XMS_ITS | Data Portability ---
Author Organization [facility], Main Office Address [address] [place] [address] Care Team Providers Care Quality Assurance Qa Lab Technician Name Role Phone LYNDSAY BERNARD Primary Care Provider [phone] CHUCHO MIRANDA Carpenter Helper Assessment No assessment recorded. Plan of Treatment Reminders Order Date Submit Date Provider Last Modified By Organization Details Last Modified Time Details Appointments None record ed. Lab None record ed. Referral None record ed. Procedures None record ed. Surgeries None record ed. Imaging None record ed. Medication Orders None record ed. Patient TargetsNo targets recorded. Patient Instructions Encounter Date Encounter Id Patient Instructions Last Modified By Organization Details Last Modified Time 08/06/2024 [id number] it is unknown whether not he will pass his cardiac clearance and his son is concerned about the risk were dean in any case. We will set up open reduction nasal fracture until a decision is established [facility] Not available 08/06/2024 12:42:45 Reason for Referral None Reported. Problems Name Problem SNOMED Code Status Onset Date Resolution Date Notes Provider Name and Address Organization Details Recorded Time Closed fracture of nasal bones 23413425 Active 024 Glen Mayen MD [address], [address] , [facility] 12:42:25 Problem Notes None recorded. Procedures Surgical History Date Name Laterality Status Provider Name and Address Organization Details Recorded Time 08/26/19 13 cholecystectomy completed Malorie Elizabeth RN [facility] 08/06/2024 17:58:37 Imaging Results None recorded. Procedure Notes None recorded. Medical Equipment None Reported. Allergies Allergen ID Allergen Name Allergen Category Reaction Reaction Severity Criticality Documentation Date Start Date Code Code System Note Provider Name and Address Organization Details Recorded Time 56920 Oxycontin medicatio n Not available Not available Not available 08/06/2024 57556 6 RxNorm Malorie Elizabeth RN null, [place] - [facility] 4 12:26:30 Medications Name Sig Start [...] Address Organization Details Last Updated DateTime 08/06/2024 19747.92 g 26.4 kg/m2 172.72 cm 98 [degF] Malorie Elizabeth RN [facility] 08/06/2024 12:24:19 Social History Question Answer Notes LastModified by Organizat ion Details LastModified Time Tobacco Smoking Status Former Smoker Malorie Elizabeth RN null, [facility] 08/06/2024 12:23:16 What Is Your Level [...] Diagnosis/Indication Diagnosis SNOMED-CT Code Diagnosis ICD10 Code Diagnosis Note [id number] Glen Mayen MD [facility] [address] [place] [address] 08/06/2024 11:56:02 08/20/2024 10:43:43 Closed fracture of nasal bones 85624938 S02.2XXA Health Concerns Section Related Observation LastModified by Organization Detai ls LastModified Time None Recorded Concern Status LastModified by Organization Details LastModified Time None Recorded Advance Directives Directive None Recorded Payers Encounter Date Sequence Insurance Name Policy Number Policy De Jesus Covered Member ID De Jesus Member ID Guarantor Name 08/06/2024 1 [facility] (MEDICARE REPLACEMENT/A DVANTAGE - HMO) [id number] Jovan Rodas [id number] Jovan Rodas Notes Date Note Type Note Provider Name and Address Organization Details Recorded Time 08/06/2024 text/html This patient fel l and fractured his nose. There is a prominent external visible displacement of his nasal bones. He does have a significant cardiac history. Glen Mayen MD [address] [facility], [facility] [address], [place], [address], [place] [facility] 08/06/2024 12:43:01
--- OUTSIDE RECORDS SUMMARY | 2024-10-09 11:23 | XMS_ITS | Encounter Summary ---
Author Organization [facility] Address [address] [place] [address] Care Team Providers Care Shop Clerk Name Role Phone Jovan Beltran MD Unavailable UnavailPrashanth Weston MD Unavailable [phone] Mumtaz Ortega MD,PHD [facility] Parviz Sebastian MD Unavailable Unavailable Deondre Nicolas MD Unavailable [phone] Shaan Whitt MD Unavailable [phone] Myrna Robles FILLER WIPER Unavailable Unavailable Vero Victor SUPERVISOR VEGETABLE FARMING Unavailable [phone] Phillip Hammer DO Primary Care Provider [phone] Ruddy Yang MD Primary Care Provider [phone] Hany Geller DPM Unavailable [phone] Jovan Weathers DPM Unavailable [phone] Sydney Lazaro MD Unavailable [phone] Encounter Details Date Type Department Care Team (Late st Contact Info) Description 08/05/[address] [facility] [address] [phone] Deondre Nicolas MD [address] [place] [address] [phone] Social History Tobacco Use Types Packs/Day Years [...] documented as of this encounter Care Teams Shop Clerk Relationship Specialty Start Date End Date Phillip Hammer DO [address] [place] [address] PCP - General FAMILY PRACTICE 01/22/20 02/29/20 Ruddy Yang MD [address] [place] [phone] PCP - General INTERNAL MEDICINE 03/01/20 Jovan Beltran MD [place] Casing Wringer Operator CLINICAL CARDIAC ELECTROPHYSIOLOGY 04/04/17 Prashanth Koch MD [address] [place] [address] [place] [employer] Operator CARDIOVASCULAR DISEASE 08/23/17 Mumtaz Ortega MD,PHD [address] [place] [address] [place] [employer] Wringer Operator CARDIOTHORACIC SURGERY 09/13/17 01/21/20 Parviz Artis MD [address] [place] [address] CRITICAL CARE MEDICINE 10/18/17 01/21/20 Deondre Nicolas MD [address] [place] [address] NEUROLOGY 11/12/17 03/29/20 Shaan Whitt MD [address] [place] [address] UROLOGY 02/07/18 01/21/20 Myrna Robles, FILLER WIPER [address] [place] [address] Referring Physician CARDIOVASCULAR DISEASE 05/01/18 Vero Victor FNP [address] [place] [address] FAMILY PRACTICE 09/30/18 Hany Geller DPM [facility] [place] [address] Consulting Physician PODIATRY/SURGERY 12/06/22 12/07/23 Jovan Weathers DPM [facility]5 [place] [address] Consulting Physician PODIATRY 02/28/23 02/29/24 Sydney Lazaro MD [address] [place] [phone] Internal Medicine - Infectious Disease 02/28/23 02/29/24 documented as of this encounter
--- OUTSIDE RECORDS SUMMARY | 2024-10-09 11:23 | XMS_ITS | Encounter Summary ---
Author Organization [facility] Address [address] [place] [address] Care Team Providers Care Supervisor Blast Furnace Name Role Phone Jovan Beltran MD Unavailable UnavailPrashanth Weston MD Unavailable [phone] Mumtaz Ortega MD,PHD [facility]available [facility] Parviz Sebastian MD Unavailable Unavailable Deondre Nicolas MD Unavailable [phone] Shaan Whitt MD Unavailable [phone] Myrna Robles DOCKMASTER Unavailable Unavailable Vero Victor TRAVELING SECRETARY Unavailable [phone] Phillip Hammer DO Primary Care Provider [phone] Ruddy Yang MD Primary Care Provider [phone] Hany Geller DPM Unavailable [phone] Jovan Weathers DPM Unavailable [phone] Sydney Lazaro MD Unavailable [phone] Encounter Details Date Type Department Care Team (Late st Contact Info) Description 07/26/2018 Abstract [facility] [address] [place] [phone] Deondre Nicolas MD [address] [place] [address] [phone] Social History Tobacco Use Types Packs/Day Years [...] documented as of this encounter Care Teams Supervisor Blast Furnace Relationship Specialty Start Date End Date Phillip Hammer DO [address] [place] [address] PCP - General FAMILY PRACTICE 01/22/20 02/29/20 Ruddy Yang MD [address] [place] [phone] PCP - General INTERNAL MEDICINE 03/01/20 Jovan Beltran MD [place] Tipple Oiler CLINICAL CARDIAC ELECTROPHYSIOLOGY 04/04/17 Prashanth Koch MD [address] [place] [address] [place] [employer] Oiler CARDIOVASCULAR DISEASE 08/23/17 Mumtaz Ortega MD,PHD [address] [place] [address] [place] Tipple Oiler CARDIOTHORACIC SURGERY 09/13/17 01/21/20 Parviz Artis MD [address] [place] [address] CRITICAL CARE MEDICINE 10/18/17 01/21/20 Deondre Nicolas MD [address] [place] [address] NEUROLOGY 11/12/17 03/29/20 Shaan Whitt MD [address] [place] [address] UROLOGY 02/07/18 01/21/20 Myrna Robles, DOCKMASTER [address] [place] [address] Referring Physician CARDIOVASCULAR DISEASE 05/01/18 Vero Victor FNP [address] [place] [address] FAMILY PRACTICE 09/30/18 Hany Geller DPM [facility]5 [place] [address] Consulting Physician PODIATRY/SURGERY 12/06/22 12/07/23 Jovan Weathers DPM [facility]5 [place] [address] Consulting Physician PODIATRY 02/28/23 02/29/24 Sydney Lazaro MD [address] [place] [phone] Internal Medicine - Infectious Disease 02/28/23 02/29/24 documented as of this encounter
--- OUTSIDE RECORDS SUMMARY | 2024-10-09 11:23 | XMS_ITS | Clinical Summary ---
Author Organization [facility] [facility] Address [address] [place] [address] Care Team Providers Care Rehabilitation Therapy Aide Name Role Phone Ruddy Yang MD Primary Care Provider [phone] Allergies Active Allergy Reactions Criticality Noted Date [...] 1 tablet/capsule (10 mEq total) by mouth booking officer before breakfast 4 Active Active Problems Problem Noted Date Diagnosed Date Elective replacement of impl antable cardioverter-defibrillator (ICD) battery required 10/01/2023 Sensorineural hearing loss (SNHL) of both ears 1 09/02/2022 Assessment & Plan (07/03/2023 10:35 AM LAUNDRY MACHINE OPERATOR): Hearing test Flonase 2 sprays into each [...] 07/03/2023 Assessment & Plan (07/03/2023 10:35 AM LAUNDRY MACHINE OPERATOR): Hearing test Flonase 2 sprays into each [...] (07/11/2022): Added automatically from request for surgery [id number] Pain associated with wound 06/28/2022 S/P TAVR (transcatheter aortic valve replacement ) 05/16/2021 Hx of CABG 02/07/2021 Permanent atrial fibrillation (CMS/HCC) 02/08/20 ICD (implantable cardioverter-defibrillator) in place 02/07/2021 History of coronary artery stent placement 02/07 Biventricular ICD (implantab le cardioverter-defibrillator) in place 01/04/2021 Overview (10/28/2023): Yo Hestand BIV ICD. Dx; CHF, SSS. Afib, AV Node Ablation. DOI 10/28/2023- Lynette. Chronic leads 05/25/2015. [place] remote monitoring. LV lead is a Medtronic lead and therefore the device is Not MRI conditional d/t Dexrex Gear products. Dr Jovan Beltran-original device implanter in 2014. Osteoarthritis of lumbar spine 08/10/2015 Hypertension 01/29/2014 Overview (11/30/2016): High blood pressure Chronic coronary artery disease 01/29/2014 Overview (11/30/2016): Coronary artery disease Chronic obstructive pulmonary disease 01/29/2014 Overview (11/30/2016): COPD Hypercholesterolemia 01/29/2014 Overview (11/30/2016): High cholesterol Lumbago 02/04/2009 Immunizations Name Administration Dates Next Due Influenza, Trivalent, Preservative Free, Intramu scular 04/26/2015,06/26/2014 Surgical History Surgery Date Site/Laterality Comments OTHER SURGICAL HISTORY 08/26/2013 - 08/25/2014 Hernia (4 ) POSTERIOR LAMINECTOMY / DECO MPRESSION LUMBAR SPINE Back Surgery - (Added by TW Conv) CHOLECYSTECTOMY 08/26/2016 - 08/25/2017 Cholecystectomy - (Added by TW Conv) CORONARY ARTERY BYPASS GRAFT 08/26/1998 - 08/25/1999 ABDOMINAL AORTIC ANEURYSM REPAIR CARDIAC CATHETERIZATION AORTIC VALVE REPLACEMENT 08/26/2017 - 08/25/2018 CARDIAC STENT PLACEMENT X2 INSERT / REPLACE / REMOVE PACEMAKER 2015 - 08/25/2016 PACEMAKER/ICD TRANSURETHRAL RESECTION OF BLADDER 02/20/2018 ESOPHAGOGASTRODUODENOSCOPY 05/16/2022 COLONOSCOPY 05/17/2021 CHOLECYSTECTOMY CAROTID ENDARTERECTOMY ANOMALOUS PULMONARY VENOUS R ETURN REPAIR, TOTAL OTHER SURGICAL HISTORY TAVR Medical History Medical History Date Comments Hx Other Medical surgery back pa in; Comments: RLS 01/29/2014 - Hx Other Medical cyst removed fr om bladder; Comments: RLS 01/29/2014 - Hx Other Medical gall bladder re move; Comments: RLS 01/29/2014 - Personal history of other di seases of the respiratory system History of chronic obstructi ve lung disease - (Added by TW Conv) Heart attack (HCC) CHF (congestive heart failur e) (CMS/HCC) (HCC) COPD (chronic obstructive pu lmonary disease) (HCC) Anemia Arthritis Peripheral artery disease (HCC) Stented coronary artery Family History Medical History Relation Name Comments Hypertension Father Hypertension; Parkinsonism Mother Parkinson's dis ease; Hypertension Other Family history of hypertension - (Added by TW Conv) Relation Name Status Comments Father Mother Other Social History Tobacco Use Types Packs/Day Years Used Date Smoking Tobacco: Former Cigarettes Q uit: 2008 Smokeless Tobacco: Former Chew Quit: 1971 Tobacco Cessation:Counseling Given: Not Answered Alcohol Use [...] on file Legal Sex Male 1:59 AM LAUNDRY MACHINE OPERATOR Gender Identity Not on file Sexual Orientation Not on file Obstetrics History Last Filed Vital Signs Vital Sign Reading Time Taken Comments Blood Pressure 118/70 02/11/2024 11:24 AM CDT Pulse 60 02/11/2024 11:24 AM CDT Temperature 36.1 C (97 F) 10/28/2023 1:26 PM LAUNDRY MACHINE OPERATOR Respiratory Rate 20 10/28/2023 2:35 PM LAUNDRY MACHINE OPERATOR Oxygen Saturation 95% 02/11/2024 11:24 AM CDT Inhaled Oxygen Concentration - - Weight 77.1 kg (170 lb) 02/11/2024 11:24 AM CDT Height 172.7 cm (5' 8 ) 02/11/2024 11:24 AM CDT Body Mass Index 25.85 02/11/2024 11:24 AM CDT Plan of Treatment Health Maintenance Due Date Last Done Comments Depression Screening 1941 Pneumococcal vaccine 65+ (1 of 2 - PCV) 1947 Hepatitis B Screening 1959 Zoster Vaccine (1 of 2) 1991 Well Visit 65+ 2006 Influenza Vaccine (#1) 2024 2, 06/21/2020, 04/26/2020, Additional history exists Fall Risk Assessment 10/27/2024 10/28/2023 DTaP/Tdap/Td Vaccine (2 - Td or Tdap) 06/28/2030 06/28/2020 Medical Devices Implanted Type Area Mechanical Laboratory Technician Device Identifier Shelf Expiration Date Model / Serial / Lot Icd ICD Heart Pacemaker Pacemaker Heart Description:PACEMAKER/ICD Stent Implanted:Qty: 2 Stent Heart Yo Vascular Defib Cardiac [id number] Hestand Hf Df4 Is-4 Is-1 Cnctr [id number] - [id number] - [id number] Implanted:Qty: 1 on 10/28/2023 by Eric Ojeda MD at [facility] [employer] 08/25/2025 [id number] / [id number] / Insurance MEDICARE SOLUTIONS MEDICARE [facility] MEDICARE SOLUTIONS Care Teams Rehabilitation Therapy Aide Relationship Specialty Start Date End Date Ruddy Yang MD [address] [place] [address] PCP - General Internal Medicine 01/02/21
--- OUTSIDE RECORDS SUMMARY | 2024-10-09 11:23 | XMS_ITS | Clinical Summary ---
Author Organization [facility] Address [address] [place] [address] Care Team Providers Care Dairy Farmer Name Role Phone Ruddy Yang MD Primary Care Provider [phone] Source Comments [facility],non-owned Affiliates and Associated Physician Practices is amultiple site organization consisting of ambulatory clinics and hospital sitesin [place], [place], [place] and [place]. This disclosure is being madepursuant to the Care Everywhere program and may not contain all information available regarding this patient. Last updated 18.[facility] Medications * Be aware that medications [...] Mass Index - - Plan of Treatment Health Maintenance Due Date Last Done Comments DTAP/TDAP/TD VACCINES (1 - Tdap) 1960 PNEUMOCOCCAL VACCINE 50+ (1 of 1 - PCV) 1991 ZOSTER VACCINE (1 of 2) 1991 Respiratory Syncytial Virus (RSV) Vaccine Pt: or over 60 yrs (1 - 1-dose 75+ series) 2016 COVID-19 VACCINE ( - season) 2024 INFLUENZA VACCINE (#1) 2024 2, 06/21/2020, 05/26/2019, Additional history exists DEPRESSION SCREENING 08/26/2024 MEDICARE AWV CALENDAR YEAR 2024 HEPATITIS B VACCINE Aged Out No longe r eligible based on patient's age to complete this topic HIB VACCINE Aged Out No longer eligi ble based on patient's age to complete this topic HPV VACCINE Aged Out No longer eligi ble based on patient's age to complete this topic MENINGOCOCCAL (Group B) VACCINE Aged Out No longer eligible based on patient's age to complete this topic MENINGOCOCCAL VACCINE Aged Out No kala sandra eligible based on patient's age to complete this topic Care Teams Dairy Farmer Relationship Specialty Start Date End Date Ruddy Yang MD PCP - General 07/08/20
--- OUTSIDE RECORDS SUMMARY | 2024-10-09 11:24 | XMS_ITS | Encounter Summary ---
Author Organization [facility] Address [address] [place] [address] Care Team Providers Care Splitter Tender Name Role Phone Jovan Beltran MD Unavailable UnavailPrashanth Weston MD Unavailable [phone] Mumtaz Ortega MD,PHD Unavailable Parviz Mcbride MD Unavailable Unavailable Deondre Nicolas MD Unavailable [phone] Shaan Whitt MD Unavailable [phone] Myrna Robles DRILLING RIG OPERATOR Unavailable Unavailable Vero Victor SENIOR STAFF PSYCHOLOGIST Unavailable [phone] Phillip Hammer DO Primary Care Provider [phone] Ruddy Yang MD Primary Care Provider [phone] Hany Geller DPM Unavailable [phone] Jovan Weathers DPM Unavailable [phone] Sydney Lazaro MD Unavailable [phone] Encounter Details Date Type Department Care Team (Late st Contact Info) Description 02/02/2016 Abstract [facility] [address] [place] [address] Jovan Beltran MD Social History Tobacco Use Types Packs/Day Years Used Date Smoking Tobacco: Former Cigarettes Q uit: 04/2008 Alcohol Use Standard Drinks/Week Comments Yes 0 [...] documented as of this encounter Care Teams Splitter Tender Relationship Specialty Start Date End Date Phillip Hammer DO [address] [place] [address] PCP - General FAMILY PRACTICE 01/22/20 02/29/20 Ruddy Yang MD [address] [place] [phone] PCP - General INTERNAL MEDICINE 03/01/20 Jovan Beltran MD [place] [employer] Engine Assembler CLINICAL CARDIAC ELECTROPHYSIOLOGY 04/04/17 Prashanth Koch MD [address] [place] [address] [employer] CARDIOVASCULAR DISEASE 08/23/17 Mumtaz Ortega MD,PHD [address] [place] [address] [employer] CARDIOTHORACIC SURGERY 09/13/17 01/21/20 Parviz Artis MD [address] [place] [address] CRITICAL CARE MEDICINE 10/18/17 01/21/20 Deondre Nicolas MD [address] [place] [address] NEUROLOGY 11/12/17 03/29/20 Shaan Whitt MD [address] [place] [address] UROLOGY 02/07/18 01/21/20 Myrna Robles, DRILLING RIG OPERATOR [address] [place] [address] Referring Physician CARDIOVASCULAR DISEASE 05/01/18 Vero Victor, SENIOR STAFF PSYCHOLOGIST [address] [place], [place] [phone] FAMILY PRACTICE 09/30/18 Hany Geller DPM [address] [facility] [place] [address] Consulting Physician PODIATRY/SURGERY 12/06/22 12/07/23 Jovan Weathers DPM [address] [place] [address] Consulting Physician PODIATRY 02/28/23 02/29/24 Sydney Lazaro MD [address] [place] [phone] Internal Medicine - Infectious Disease 02/28/23 02/29/24 documented as of this encounter
--- OUTSIDE RECORDS SUMMARY | 2024-10-09 11:24 | XMS_ITS | Clinical Summary ---
Author Organization [facility] Address [address] [place] [address] Phone Care Team Providers Care [employer] Name Role Phone Ruddy Yang MD Primary Care Provider [phone] Allergies Active Allergy Reactions Criticality Noted Date Comments Acetaminophen Unknown 10/11/2019 Oxycodone Hallucinations,Other (see comments) High 10/12/2014 agitation Statins Myopathy 07/18/2016 Sulfa Antibiotics Medium 10/12/2014 Other reaction(s): Unknown, Vomiting Medications Medication Sig Dispensed Refills Start Date End Date Status albuterol (2.5 MG/3ML) 0.083% nebulizer solution Inhale 2.5 mg Act kim allopurinol (ZYLOPRIM) 100 MG tablet TAKE 1 TABLET BY MOUTH ONCE DAILY NEEDED FOR GOUT 07/30/2019 Active aspirin 81 MG chewable tablet Aspirin Childrens (aspirin) tablet,chewable 81 mg; take 1 tablet by mouth at bedtime; 0; 0; -Jul-2014; Active 08/06/2014 Active atorvastatin (LIPITOR) 40 MG tablet Take 40 mg by mouth 1 (one) time each day 08/31/2019 Active carvedilol (COREG) 12.5 MG tablet TAKE 1 TABLET BY MOUTH TWICE DAILY WITH MEALS 12/31/2017 Active clopidogrel (PLAVIX) 75 MG tablet Take 75 mg by mouth daily Active finasteride (PROSCAR) 5 MG tablet Take 5 mg by mouth 1 (one) time each day 08/31/2019 Active gabapentin (NEURONTIN) 600 MG tablet Take 600 mg by mouth 3 times daily 03/05/2014 Active indomethacin (INDOCIN) 25 MG capsule TAKE 1 CAPSULE BY MOUTH THREE TIMES DAILY NEEDED FOR GOUT 07/09/2019 Active pregabalin (LYRICA) 100 MG capsule Take 100 mg by mouth 3 (three) times a day 09/01/2019 Active tamsulosin (FLOMAX) 0.4 MG 24 hr capsule Take 0.4 mg by mouth 1 (one) time each day 08/31/2019 Active traMADol (ULTRAM) 50 MG tablet Take 50 mg by mouth every 6 (six) hours if needed for pain 09/03/2019 Active traZODone (DESYREL) 50 MG tablet Take 50 mg by mouth 3 (three) times a day 07/09/2019 Active metOLazone (ZAROXOLYN) 2.5 MG tablet Take 2.5 mg by mouth 1 (one) time each day 01/16/2020 Active fluticasone (FLONASE) 50 MCG/ACT nasal spray 06/02/2020 Active pantoprazole (PROTONIX) 40 MG EC tablet 07/05/2020 Active cholecalciferol (VITAMIN D-3) 25 MCG (1000 UT) tablet Take 1,000 Units by mouth daily Active cilostazol (PLETAL) 50 MG tablet 05/18/2021 Active Linzess 145 MCG capsule 03/02/2021 Active ofloxacin (OCUFLOX) 0.3 % ophthalmic solution 03/23/2021 Active colchicine 0.6 MG tablet 10/11/2021 Active potassium chloride (KLOR-CON M20) 20 MEQ CR tablet 03/15/2022 Active Eliquis 2.5 MG tablet 05/24/2022 Act kim furosemide (LASIX) 40 MG tablet 06/04/2022 Active Active Problems Problem Noted Date Diagnosed Date History of placement of stent for coronary arter y disease 02/07/2021 History of coronary artery bypass grafting 02/07 Anemia of chronic renal failure 01/09/2021 Chronic systolic heart failure 05/11/2020 Congestive heart failure 04/18/2020 Long-term current use of anticoagulant 0 Hypokalemia 01/22/2020 Carotid artery stenosis 10/11/2019 History of repair of aneurysm of abdominal aorta 10/11/2019 Peripheral vascular disease 10/11/2019 Orthostatic hypotension 10/11/2019 Overview (10/11/2019): Near syncope Foot-drop 11/07/2017 Stroke 11/01/2017 Peripheral axonal neuropathy 11/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 Dx; CHF, SSS. Afib, AV Node Ablation. DOI 05/25/[address] Jovan Beltran. [place] remote monitoring. Permanent atrial fibrillation 04/04/2017 Benign prostatic hypertrophy with outflow obstru ction 03/02/2017 H/O: malignant neoplasm 03/02/2017 Lumbar spondylosis 08/10/2015 Chronic obstructive pulmonary disease 01/29/2014 Overview (06/07/2021): COPD COPD Overview: COPD Coronary arteriosclerosis 01/29/2014 Overview (10/11/2019): Coronary artery disease Hyperlipidemia 01/29/2014 Overview (10/11/2019): High cholesterol Hypertension 01/29/2014 Overview (10/11/2019): High blood pressure Lumbago 02/04/2009 Immunizations Name Administration Dates Next Due Influenza (IM) Preservative Free 04/26/2015,11/0 08/2013 Influenza, Injectable, Quadrivalent 06/21/2020,1 Sars-cov-2, Unspecified 12/06/2020 Family History Medical History Relation Comments Abdominal aortic aneurysm Father Coronary artery disease Father Parkinson's disease Mother Relation Status Comments Father Mother Social History Tobacco Use Types Packs/Day Years Used Date Smoking Tobacco: Former Smokeless Tobacco: Never Sex and Gender Information Value Date Recorded Sex Assigned at Not on file Gender Identity Not on file Sexual Orientation Not on file Last Filed Vital Signs Vital Sign Reading Time Taken Comments Blood Pressure 136/74 12/06/2021 11:19 AM CDT Pulse - - Temperature 36.3 C (97.3 F) 12/06/2021 11:19 AM CDT Respiratory Rate 18 12/06/2021 11:19 AM CDT Oxygen Saturation - - Inhaled Oxygen Concentration - - Weight 87.5 kg (193 lb) 12/06/2021 11:19 AM CDT Height 172.7 cm (5' 8 ) 12/06/2021 11:19 AM CDT Body Mass Index 29.35 12/06/2021 11:19 AM CDT Plan of Treatment Health Maintenance Due Date Last Done Comments Pneumococcal PPSV23/PCV13 65 + Years / Low and Medium Risk (1 of 4 - PCV) 2006 Influenza Vaccine (#1) 2024 04/26/2015, 2013 Care Teams [employer] Relationship Specialty Start Date End Date Ruddy Yang MD [address] [place] [id number] PCP - General Internal Medicine 12/19/20
--- OUTSIDE RECORDS SUMMARY | 2024-10-09 11:24 | XMS_ITS | Clinical Summary ---
Author Organization [facility] Address [address] [place] [address] Care Team Providers Care Infectious Disease Physician Name Role Phone Jovan Beltran MD Unavailable UnavailPrashanth Weston MD Unavailable [phone] Myrna Robles NP Unavailable Unavailable Vero Victor VENTILATING EQUIPMENT INSTALLER Unavailable [phone] Ruddy Yang MD Primary Care Provider [phone] Allergies Active Allergy Reactions Criticality Noted Date Comments Acetaminophen Unknown 10/11/2019 Other reaction(s): Unknown Donepezil Other (see comment) 03/04/2023 Oxycodone Hallucinations,Other (see comment) High 10/12/2014 agitation agitation Other reaction(s): Hallucinations, Other (See Comments), Other (see Comments) agitation agitation agitation agitation Statins Myalgias 07/18/2016 Other reaction(s): Myalgias, Myopathy Sulfa Antibiotics Unknown,Rash,Other (see comment) Medium 10/12/2014 Pt not sure Other reaction(s): Unknown, Vomiting Other reaction(s): Unknown, Vomiting Sulfacetamide Unknown 10/12/2014 Medications atorvastatin (LIPITOR) 40 MG tablet Take 1 tablet (40 mg total) by mouth daily. 4 Active Multiple Vitamins-Mineral s (MULTIVITAMIN MEN OR) Take by mouth daily. 8 Active traMADol 50 MG tablet Take 1 tablet (50 mg total) by mouth 3 (three) times daily. 5 Active trazodone 50 MG tablet Take 1 tablet (50 mg total) by mouth daily as needed. 6 Active tamsulosin 0.4 MG Cap Take 1 capsule (0.4 mg total) by mouth daily. 7 Active allopurinol 100 MG tablet Take 1 tablet (100 mg total) by mouth 2 (two) times daily. 7 Active furosemide 40 MG tablet Take 1 tablet (40 mg total) by mouth daily. am 7 Active CARVEDILOL 12.5 MG tabletIndication s:Essential hypertension,Non rheumatic aortic valve stenosis,Acute on chronic diastolic heart failure ([facility]) TAKE 1 TABLET BY MOUTH TWICE DAILY WITH MEALS 180 tablet 3 0 Active Additional Information Patient taking differently: 12.5 mg, Reported on 03/18/2023 finasteride 5 MG tablet Use as directed 1 tablet (5 mg total) in the mouth or throat nightly at bedtime. 0 Active PREGABALIN 100 MG capsuleIndicatio ns:Neuropathy, peripheral axonal TAKE 1 CAPSULE BY MOUTH THREE TIMES DAILY 90 capsule 0 Active Additional Information Patient taking differently: 100 mg Oral 3 times daily, TAKE 1 CAPSULE BY MOUTH THREE TIMES DAILY, Reported on 03/18/2023 potassium chloride CR (KLOR-CON M) 20 MEQ tablet Take 2 tablets (40 mEq total) by mouth 2 (two) times daily. 2 Active aspirin 81 MG chewable tablet Aspirin Childrens (aspirin) tablet,chewable 81 mg; take 1 tablet by mouth at bedtime; 0; 0; -Jul-2014; Active 30 tablet 1 2 Active pantoprazole EC (PROTONIX) 40 MG tablet Take 1 tablet (40 mg total) by mouth 2 (two) times a day. 60 tablet 1 2 Active apixaban (ELIQUIS) 5 MG tablet Take 1 tablet (5 mg total) by mouth 2 (two) times daily. Active ceFEPIme (MAXIPIME) 2 GM/100ML IV SOLN Inject 100 mLs (2 g total) into the vein every 12 (twelve) hours. Active silver sulfADIAZINE (SILVADENE) 1 % creamIndications :Open wound of right foot with complication, subsequent encounter,PVD (peripheral vascular disease) ([facility]) Apply topically 2 (two) times daily. 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 Stroke ([facility]) 11/01/2017 Acute on chronic diastolic heart failure ([facility]) 10/08/2017 Stage 3 chronic kidney disease ([facility]) 10/08/2017 Acute right MCA stroke ([facility]) 018 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 Nonrheumatic aortic valve stenosis 07/11/2017 Abdominal aortic aneurysm (AAA) without rupture 07/11/2017 Persistent atrial fibrillation ([facility]) 04/04/2017 Pacemaker 04/04/2017 Osteoarthritis of lumbar spine 08/10/2015 Chronic obstructive pulmonary disease ([facility]) 01/29/2014 Overview (12/31/2018): Overview: COPD S/P AAA (abdominal aortic aneurysm) repair PVD (peripheral vascular disease) Hypertension Hyperlipidemia Carotid stenosis CAD (coronary artery disease) Orthostatic hypotension Overview (08/23/2017): Near syncope CKD (chronic kidney disease) stage 3, GFR 30-59 ml/min ([facility]) Hypokalemia Paroxysmal atrial fibrillation ([facility]) Atrial fibrillation, persistent ([facility] ) Chronic anticoagulation Pressure ulcer of other site, stage 2 ([facility]) Resolved Problems Problem Noted Date Diagnosed Date Resolved Date ICD (implantable cardioverte r-defibrillator) in place 04/04/2017 04/04/2017 Paroxysmal atrial fibrillati on ([facility]) 02/10/2018 Paroxysmal atrial fibrillati on ([facility]) 05/29/2018 Atrial fibrillation, persist ent ([facility]) 05/29/2018 Encounters Date Type Department Care Team Description 07/31/2024 10:27 AM PULMONOLOGIST - 07/31/2024 11:59 PM PULMONOLOGIST Hospital Encounter [facility] [address] [place] [address] Raisa Shearer, VENTILATING EQUIPMENT INSTALLER Discharge Disposition: Home or Self Care (Routine Discharge) 07/31/2024 Travel from Last 3 Months Immunizations Name Administration Dates Next Due Fluzone 6 Months+ Quad (0.5 mL Prefilled Syringe ) 05/21/2022 Family History Medical History Relation Comments Aortic Aneurysm Father Electively repai red Coronary artery disease Other Family h istory is positive for premature coronary heart disease Relation Status Comments Brother Alive Father Mother Other Social History Tobacco Use Types Packs/Day Years Used Date Smoking Tobacco: Former Cigarettes Q uit: 04/2008 Smokeless Tobacco: Never Tobacco Cessation:Counseling Given: Not Answered Alcohol Use Standard Drinks/Week Comments Yes 0 [...] file Not on file Not on file Last Filed Vital Signs Vital Sign Reading Time Taken Comments Blood Pressure 126/74 07/23/2023 2:27 PM PULMONOLOGIST Pulse 74 07/23/2023 2:27 PM PULMONOLOGIST Temperature 36.4 C (97.5 F) 05/21/2022 9:46 AM CDT Respiratory Rate 18 07/23/2023 2:27 PM PULMONOLOGIST Oxygen Saturation 96% 07/23/2023 2:27 PM PULMONOLOGIST Inhaled Oxygen Concentration - - Weight 77.1 kg (170 lb) 07/23/2023 2:27 PM PULMONOLOGIST Height 172.7 cm (5' 8 ) 07/23/2023 2:27 PM PULMONOLOGIST Body Mass Index 25.85 07/23/2023 2:27 PM PULMONOLOGIST Plan of Treatment Health Maintenance Due Date Last Done Comments Pneumococcal Vaccine: 65+ Years (1 of 2 - PCV) 1947 PHQ-2 ([facility] [place]) 1953 Zoster Vaccines (1 of 2) 1991 Annual Medicare Wellness Visit 2006 RSV Immunization or 60+ Years (1 - 1-dose 75+ series) 2016 ASCVD LDL 10/18/2018 10/18/2017, 02/03/2018, 04/04/2015 COVID-19 Vaccine (3 - season) 2024 11/09/2020, 10/19/2020 Influenza Adult (#1) 2024 05/21/2022, 04/19/2021, 06/21/2020, Additional history exists PHQ-2 ([facility] [place]) 08/26/2024 DTaP, Tdap and Td Vaccines (2 - Td or Tdap) 06/28/2030 06/28/2020 Meningococcal B Vaccine Aged Out No l onger eligible based on patient's age to complete this topic Meningococcal Vaccine Aged Out No kala sandra eligible based on patient's age to complete this topic RSV Immunizations Under 20 Months Aged Out No longer eligible based on patient's age to complete this topic Goals Goal Patient Goal Type Associated Problems Recent Progress Patient-Stated? Author Safety Patient/family will have appropriate support at home upon discharge Lifestyle No Beryl Freeman RN Procedures Procedure Name Priority Date/Time Associated Diagnosis Comments LIPID PANEL TIMED 10/18/2017 2:35 AM PULMONOLOGIST from Last 3 Months or Most Recently Relevant to Health Maintenance Results * (ABNORMAL) LIPID PANEL (10/18/2017 2:35 AM PULMONOLOGIST) [facility] CHOLESTEROL 128 0 - 200 MG/DL 10/18/2017 4:25 AM PULMONOLOGIST [facility] Comment:DESIRABLE: <200 TRIGLYCERIDES 190(H) 0 - 149 MG/DL 10/18/2017 4:25 AM PULMONOLOGIST [facility] Comment:150-199 [facility] HDL 24(L) >39 MG/DL 10/18/2017 4:25 AM [facility] Comment:LOW: <40 DIRECT LDL 65 0 - 129 MG/DL 10/18/2017 4:25 AM PULMONOLOGIST [facility] Comment:<100 OPTIMAL 10/18/2017 2:35 AM PULMONOLOGIST 10/18/2017 3:47 AM PULMONOLOGIST us Generic Conversion [facility] Final R esult [facility] [address] [place] [address], [id number] from Last 3 Months or Most Recently Relevant to Health Maintenance Additional Health Concerns Infection Onset Date 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 12/19/2023 Insurance Advance Directives Documents on File Type Date Recorded Patient Director Operations Expl anation Advance Directives and Living Will 05/17/2022 11:46 AM 03/09/1996 POA FOR HEALTH CARE Advance Directives and Living Will 11/09/2017 ADVANCE DIRECTIVE Advance Directives and Living Will 11/09/2017 ADVANCE DIRECTIVE Advance Directives and Living Will 10/29/2017 ADVANCE DIRECTIVE Advance Directives and Living Will 10/29/2017 SHORT FORM POWER OF SECTION [employer]EST [employer]RE WARDEN Advance Directives and Living Will 10/17/2017 ADVANCE DIRECTIVE Advance Directives and Living Will 10/17/2017 SHORT FORM POWER OF SECTION [employer]EST [employer]RE WARDEN Advance Directives and Living Will 10/17/2017 ADVANCE DIRECTIVE Advance Directives and Living Will 10/17/2017 SHORT FORM POWER OF SECTION [employer]EST [employer]ARDEN Advance Directives and Living Will 10/10/2017 ADVANCE DIRECTIVE Advance Directives and Living Will 10/10/2017 SHORT FORM POWER OF SECTION [employer]EST [employer] WARDEN Advance Directives and Living Will 10/09/2017 ADVANCE DIRECTIVE Advance Directives and Living Will 10/02/2017 ADVANCE DIRECTIVE Advance Directives and Living Will 10/01/2017 SHORT FORM POWER OF SECTION [employer]EST [employer] WARDEN Advance Directives and Living Will 10/01/2017 ADVANCE DIRECTIVE Advance Directives and Living Will 09/13/2017 ADVANCE DIRECTIVE Advance Directives and Living Will 09/13/2017 ADVANCE DIRECTIVE Advance Directives and Living Will 09/05/2017 ADVANCE DIRECTIVE Advance Directives and Living Will 08/29/2017 ADVANCE DIRECTIVE Advance Directives and Living Will 08/23/2017 ADVANCE DIRECTIVE Advance Directives and Living Will 08/23/2017 ADVANCE DIRECTIVE Advance Directives and Living Will 09/19/2016 ADVANCE DIRECTIVE Advance Directives and Living Will 07/25/2016 ADVANCE DIRECTIVE Advance Directives and Living Will 03/07/2016 ADVANCE DIRECTIVE Advance Directives and Living Will 08/03/2015 ADVANCE DIRECTIVE Advance Directives and Living Will 05/24/2015 ADVANCE DIRECTIVE Advance Directives and Living Will 04/18/2015 ADVANCE DIRECTIVE Advance Directives and Living Will 04/14/2015 ADVANCE DIRECTIVE Advance Directives and Living Will 04/03/2015 ADVANCE DIRECTIVE Advance Directives and Living Will 07/30/2014 ADVANCE DIRECTIVE * Full Code (Latest Code Status on File) Date Activated Date Inactivated Comments 05/15/2022 10:14 PM 05/21/2022 6:14 PM Care Teams Infectious Disease Physician Relationship Specialty Start Date End Date Ruddy Yang MD [address] [place] [address] PCP - General INTERNAL MEDICINE 03/01/20 Jovan Beltran MD [place] [employer] Officer CLINICAL CARDIAC ELECTROPHYSIOLOGY 04/04/17 Prashanth Koch MD [address] [place] [address] [place] [employer] CARDIOVASCULAR DISEASE 08/23/17 Myrna Robles NP [address] [place] [address] Referring Physician CARDIOVASCULAR DISEASE 05/01/18 Vero Victor FNP [address] [place] [address] FAMILY PRACTICE 09/30/18
--- OUTSIDE RECORDS SUMMARY | 2024-10-09 11:24 | XMS_ITS | Encounter Summary ---
Author Organization [facility] Address [address] [place] [address] Care Team Providers Care Pick Out Hand Name Role Phone Jovan Beltran MD Unavailable UnavailPrashanth Weston MD Unavailable [phone] Myrna Robles NP Unavailable Unavailable Vero [employer]ER Unavailable [phone] Ruddy Yang MD Primary Care Provider [phone] Hany Geller DPM Unavailable [phone] Jovan Weathers DPM Unavailable [phone] Sydney Lazaro MD Unavailable [phone] Encounter Details Date Type Department Care Team (Late st Contact Info) Description 05/22/2022 Hospital Follow-up Call [facility] Unit [address] [place] [address] Zainab Mckinney, RN Social History Tobacco Use Types Packs/Day Years [...] file Not on file Not on file COVID-19 Exposure Response Date Recorded In the last 10 days, have yo u been in contact with someone who was confirmed or suspected to have Coronavirus/COVID-19? No / Unsure 05/15/2022 11:19 PM CDT documented as of this encounter Functional Status * RETIRED Are you deaf or do you have serious difficulty hearing Answer Date of Assessment Author Status No 05/16/2022 11:00 AM CDT Acti ve * RETIRED Are you blind or do you have serious difficulty seeing, even when wearing glasses? Answer Date of Assessment Author Status No 05/16/2022 11:00 AM CDT Acti ve * Do you have serious difficulty walking or climbing stairs? Answer Date of Assessment Author Status No 05/16/2022 11:00 AM CDT Mariam Macias RN Active * Do you have difficulty dressing or bathing? Answer Date of Assessment Author Status No 05/16/2022 11:00 AM CDT Mariam Macias RN Active * Because of a physical, mental, or emotional condition, do you have difficulty doing errands alone such as visiting a doctor's office or shopping? Answer Date of Assessment Author Status No 05/16/2022 11:00 AM CDT Mariam Macias RN Active documented as of this encounter Mental Status * Because of a physical, mental, or emotional condition, do you have serious difficulty concentrating, remembering, or making decisions? Answer Entry Date Author Status No 05/16/2022 11:00 AM CHANDLERT Mariam Macias RN Active documented in this encounter Plan of Treatment Not on file documented as of this encounter Goals Goal Patient Goal Type Associated Problems Recent Progress Patient-Stated? 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 12/19/2023 documented as of this encounter Care Teams Pick Out Hand Relationship Specialty Start Date End Date Ruddy Yang MD [address] [place] [address] PCP - General INTERNAL MEDICINE 03/01/20 Jovan Beltran MD [place] Disability Case Manager CLINICAL CARDIAC ELECTROPHYSIOLOGY 04/04/17 Prashanth Koch MD [address] [place] [address] [place] Disability Case Manager CARDIOVASCULAR DISEASE 08/23/17 Myrna Robles JOB ORDER CLERK [address] [place] [address] Referring Physician CARDIOVASCULAR DISEASE 05/01/18 Vero Victor, [employer]ER [address] [place] [address] FAMILY PRACTICE 09/30/18 Hany Geller DPM [address] [place] [address] Consulting Physician PODIATRY/SURGERY 12/06/22 12/07/23 Jovan Weathers DPM [address] [place] [address] Consulting Physician PODIATRY 02/28/23 02/29/24 Sydney Lazaro MD [address] [place] [phone] Internal Medicine - Infectious Disease 02/28/23 02/29/24 documented as of this encounter
[2024-10-09 11:32] LABS: Basophils Absolute Auto 0.03 K/mm3 (0.00-0.10); Basophils Percent Auto 0.4 % (0.0-1.0); Eosinophils Absolute Auto 0.18 K/mm3 (0.02-0.50); Eosinophils Percent Auto 2.5 % (1.0-6.0); Hematocrit 38.6 % (37.0-46.0); Hemoglobin 12.7 g/dL (12.4-15.3); Immature Granulocyte Absolute 0.03 K/mm3 (0.00-0.00); Immature Granulocyte Percent A 0.4 % (0.0-0.0); Lymphocytes Absolute Auto 0.99 K/mm3 (1.10-4.50); Lymphocytes Percent Auto 13.9 % (18.0-42.0); Mean Corpuscular HGB Conc 32.9 g/dL (32-36); Mean Corpuscular Hemoglobin 33.3 pg (27.0-31.0); Mean Corpuscular Volume 101.3 fL (78.0-102.0); Mean Platelet Volume 10.2 fl (8.7-11.0); Monocytes Absolute Auto 0.75 K/mm3 (0.10-0.90); Monocytes Percent Auto 10.5 % (2.0-11.0); Neutrophils Absolute Auto 5.13 K/mm3 (1.70-7.20); Neutrophils Percent Auto 72.3 % (50.0-70.0); Platelet Count Result 106 K/mm3 (150-420); Red Blood Count 3.81 M/mm3 (4.70-6.10); Red Cell Distribution Width 16.7 % (11.6-14.4); White Blood Count 7.1 K/mm3 (4.8-10.8)
[2024-10-09 12:56] LABS: Alanine Aminotransferase 28 U/L (16-63); Albumin Level 4.1 g/dL (3.4-5.0); Alkaline Phosphatase 47 U/L (46-116); Anion Gap 9 mmol/L (4-12); Aspartate Amino Transferase 25 U/L (15-37); Bilirubin,Total 0.8 mg/dL (0.00-1.00); Blood Urea Nitrogen 24 mg/dL (7-18); Calcium 9.1 mg/dL (8.5-10.1); Carbon Dioxide 31 mmol/L (21-32); Chloride 102 mmol/L (98-108); Estimated Glomerular Filt Rate 38; Glucose 151 mg/dL (70-99); Iron 111 ug/dL (65-175); NT Pro B Type Natriuretic Pept 3217 pg/mL (0-450); Osmolality Calculated 301 mOsm/kg (285-295); Potassium 4.2 mmol/L (3.5-5.1); Sodium 142 mmol/L (136-145); Total Protein 7.8 g/dL (6.4-8.2)
[2024-10-09 13:26] LABS: Ferritin 172 ng/mL (26-388)
== END 2024-10-09 11:12 | disposition home or self-care (01) ==
LOC: CHSLAB 11:13
PROVIDERS: PCP Internal Medicine; Visit Provider Internal Medicine
DX: R06.00 Dyspnea, unspecified (principal); D64.9 Anemia, unspecified; R91.8 Other nonspecific abnormal finding of lung field
CPT/HCPCS: 36415; 71046; 80053; 82728; 83540; 83880; 85025

== ENCOUNTER 2024-10-12 12:23 | Outpatient (CLI) | payer MEDICARE, SELFPAY ==
--- NOTE | ~2024-10-12 | CT_ITS ---
EXAMINATION: CT diagnostic chest wo con DATE: 10/12/2024 12:35 INDICATION: Dyspnea, Abnormal CXR TECHNIQUE: Computed tomography (CT) of the chest was performed without intravenous contrast. Addition al 3D reconstructions utilizing coronal maximum intensity projection (MIP) were performed. Automated exposure control and iterative reconstruction technique were employed. The dose-length product was 36 3.80 mGy-cm. COMPARISON: 05/26/2022 FINDINGS: Very small left pleural effusion with peripheral pleural thickening. There is a band of peripheral ro und atelectasis in the left lower lobe with associated volume loss and architectural distortion. Calc ified right lower lobe nodule and calcified right hilar and mediastinal lymph nodes consistent with o ld granulomatous disease. No pneumonia, pulmonary edema or right-sided pleural effusion. Cardiomegaly . Small amount of fat attenuation along the ventricular septum consistent with sequela of chronic oziel cardial infarction. Atherosclerotic coronary artery calcifications with change of prior median sterno molina and coronary artery bypass grafting. There is also been a prior aortic valve repair. 3-lead card iac pacemaker/AICD with lead tips at the right atrial appendage, near the apex of the right ventricle and in a coronary vein overlying the lateral wall the left ventricle having traversed the coronary s inus. Thoracic aorta is normal in caliber with no dissection. No pathologically enlarged thoracic lym phadenopathy. Mild bilateral gynecomastia, more prominent on the left. Cholecystectomy clips the gall bladder fossa. Bilateral renal cysts the largest on the left measuring 3 cm. There is mild right-side d and moderate left-sided renal cortical atrophy. Partially visualized fusiform aneurysm of the cepha lad abdominal aorta which measures up to 6.1 x 5.6 cm. Slightly more cephalad to the center of the fu siform aneurysm there is an additional saccular aneurysm just below the thoracic hiatus superimposed upon the proximal expanding portion of the fusiform aneurysm which projects and additional 2.5 cm to the left for a transverse dimension of the aorta at this location of 6.1 cm. Corresponding measuremen ts on the prior study are identical. Mild thoracic spondylosis. IMPRESSION: 1. Likely chronic very small left pleural effusion with associated pleural thickening and round atele ctasis in the left lower lobe. 2. 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 This is unchanged from 05/26/2022. Reviewed, dictated and finalized at location A. SURFING INSTRUCTOR IMPRESSION: 1. Likely chronic very small left pleural effusion with associated pleural thic kening and round atelectasis in the left lower lobe. 2. 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 This is unchanged from 2021.
--- OUTSIDE RECORDS SUMMARY | 2024-10-12 14:46 | XMS_ITS | Encounter Summary ---
Author Organization [facility] Address [address] [place] [address] Care Team Providers Care Nursery School Attendant Name Role Phone Jovan Beltran MD Unavailable UnavailPrashanth Weston MD Unavailable [phone] Mumtaz Ortega MD,PHD Unavailable [facility] Parviz Sebastian MD Unavailable Unavailable Deondre Nicolas MD Unavailable [phone] Shaan Whitt MD Unavailable [phone] Myrna Robles VP AD SALES WEST Unavailable Unavailable Vero Victor ACADEMIC INTERVENTIONIST Unavailable [phone] Phillip Hammer DO Primary Care Provider [phone] Ruddy Yang MD Primary Care Provider [phone] Hany Geller DPM Unavailable [phone] Jovan Weathers DPM Unavailable [phone] Sydney Lazaro MD Unavailable [phone] Encounter Details Date Type Department Care Team (Late st Contact Info) Description 08/05/2018 Abstract [facility] [address] [phone] Deondre Nicolas MD [address] [place] [address] Social History Tobacco Use Types Packs/Day Years [...] documented as of this encounter Care Teams Nursery School Attendant Relationship Specialty Start Date End Date Phillip Hammer DO [address] [place] [address] PCP - General FAMILY PRACTICE 01/22/20 02/29/20 Ruddy Yang MD [address] [place] [phone] PCP - General INTERNAL MEDICINE 03/01/20 Jovan Beltran MD Vina Horse Groomer CLINICAL CARDIAC ELECTROPHYSIOLOGY 04/04/17 Prashanth Koch MD [address] [place] [address] [employer]ina Horse Groomer CARDIOVASCULAR DISEASE 08/23/17 Mumtaz Ortega MD,PHD [address] [place] [address] [employer]ina Horse Groomer CARDIOTHORACIC SURGERY 09/13/17 01/21/20 Parviz Artis MD [address] [place] [address] CRITICAL CARE MEDICINE 10/18/17 01/21/20 Deondre Nicolas MD [address] [place] [address] NEUROLOGY 11/12/17 03/29/20 Shaan Whitt MD [address] [place] [address] UROLOGY 02/07/18 01/21/20 Myrna Robles, VP AD SALES WEST [address] [place] [address] Referring Physician CARDIOVASCULAR DISEASE 05/01/18 Vero Victor FNP [address] [place] [address] FAMILY PRACTICE 09/30/18 Hany Geller DPM [facility] [place] [address] Consulting Physician PODIATRY/SURGERY 12/06/22 12/07/23 Jovan Weathers DPM [facility]5 [place] [address] Consulting Physician PODIATRY 02/28/23 02/29/24 Sydney Lazaro MD [address] [place] [phone] Internal Medicine - Infectious Disease 02/28/23 02/29/24 documented as of this encounter
--- OUTSIDE RECORDS SUMMARY | 2024-10-12 14:46 | XMS_ITS | Clinical Summary ---
Author Organization [facility] 162 Address [address] [place] [address] Care Team Providers Care Coffee Roaster Helper Name Role Phone Ruddy Yang MD Primary Care Provider [phone] Allergies Active Allergy Reactions Criticality Noted Date [...] 1 tablet/capsule (10 mEq total) by mouth assistant product manager before breakfast 4 Active Active Problems Problem Noted Date Diagnosed Date Elective replacement of impl antable cardioverter-defibrillator (ICD) battery required 10/01/2023 Sensorineural hearing loss (SNHL) of both ears 1 09/02/2022 Assessment & Plan (07/03/2023 10:35 AM SPRINKLER HELPER): Hearing test Flonase 2 sprays into each [...] 07/03/2023 Assessment & Plan (07/03/2023 10:35 AM SPRINKLER HELPER): Hearing test Flonase 2 sprays into each [...] (07/11/2022): Added automatically from request for surgery [id number] Pain associated with wound 06/28/2022 S/P TAVR (transcatheter aortic valve replacement ) 05/16/2021 Hx of CABG 02/07/2021 Permanent atrial fibrillation (CMS/HCC) 02/08/20 ICD (implantable cardioverter-defibrillator) in place 02/07/2021 History of coronary artery stent placement 02/07 Biventricular ICD (implantab le cardioverter-defibrillator) in place 01/04/2021 Overview (10/28/2023): Yo [place] BIV ICD. Dx; CHF, SSS. Afib, AV Node Ablation. DOI 10/28/2023- Lynette. Chronic leads 05/25/2015. [place] remote monitoring. LV lead is a Medtronic lead and therefore the device is Not MRI conditional d/t SignStorey products. Dr Jovan Beltran-original device implanter in 2014. Osteoarthritis of lumbar spine 08/10/2015 Hypertension 01/29/2014 Overview (11/30/2016): High blood pressure Chronic coronary artery disease 01/29/2014 Overview (11/30/2016): Coronary artery disease Chronic obstructive pulmonary disease 01/29/2014 Overview (11/30/2016): COPD Hypercholesterolemia 01/29/2014 Overview (11/30/2016): High cholesterol Lumbago 02/04/2009 Immunizations Immunization Administration Dates Next Due Influenza, Trivalent, Preservative [...] on file Legal Sex Male 1:59 AM SPRINKLER HELPER Gender Identity Not on file Sexual Orientation Not on file Obstetrics History Last Filed Vital Signs Vital Sign Reading Time Taken Comments Blood Pressure 118/70 02/11/2024 11:24 AM CDT Pulse 60 02/11/2024 11:24 AM CDT Temperature 36.1 C (97 F) 10/28/2023 1:26 PM SPRINKLER HELPER Respiratory Rate 20 10/28/2023 2:35 PM SPRINKLER HELPER Oxygen Saturation 95% 02/11/2024 11:24 AM CDT [...] 06/28/2030 06/28/2020 Medical Devices Implanted Type Area Spare Parts Clerk Device Identifier Shelf Expiration Date Model / Serial / Lot Icd ICD Heart Pacemaker Pacemaker Heart Description:PACEMAKER/ICD Stent Implanted:Qty: 2 Stent Heart Yo Vascular Defib Cardiac [id number] [place] Hf Df4 Is-4 Is-1 Cnctr [id number] - [id number] - [id number] Implanted:Qty: 1 on 10/28/2023 by Eric Ojeda MD at [facility] Yo Vascular 08/25/2025 [id number] / [id number] / Insurance MEDICARE SOLUTIONS MEDICARE [facility]MERLY [facility] MEDICARE SOLUTIONS Care Teams Coffee Roaster Helper Relationship Specialty Start Date End Date Ruddy Yang MD [address] [place] [address] PCP - General Internal Medicine 01/02/21
--- OUTSIDE RECORDS SUMMARY | 2024-10-12 14:46 | XMS_ITS | Encounter Summary ---
Author Organization [facility] Address [facility] [place] [address] Care Team Providers Care Instrument Processing Tech Name Role Phone Jovan Beltran MD Unavailable UnavailPrashanth Weston MD Unavailable [phone] Mumtaz Ortega MD,PHD Unavailable Parviz Mcbride MD Unavailable Unavailable Deondre Nicolas MD Unavailable [phone] Shaan Whitt MD Unavailable [phone] Myrna Robles CONFECTIONERY MAKER Unavailable Unavailable Vero Victor MOTION PICTURE PHOTOGRAPHER Unavailable [phone] Phillip Hammer DO Primary Care Provider [phone] Ruddy Yang MD Primary Care Provider [phone] Hany Geller DPM Unavailable [phone] Jovan Weathers DPM Unavailable [phone] Sydney Lazaro MD Unavailable [phone] Encounter Details Date Type Department Care Team (Late st Contact Info) Description 01/31/2019 Abstract [facility] [address] [place] [address] , Generic Conversion, Social History Tobacco Use [...] documented as of this encounter Care Teams Instrument Processing Tech Relationship Specialty Start Date End Date Phillip Hammer DO [address] [place] [address] PCP - General FAMILY PRACTICE 01/22/20 02/29/20 Ruddy Yang MD [address] [place] [address] PCP - General INTERNAL MEDICINE 03/01/20 Jovan Beltran MD [employer]ow Promotions Manager CLINICAL CARDIAC ELECTROPHYSIOLOGY 04/04/17 Prashanth Koch MD [address] [place] [address] [employer]ow Promotions Manager CARDIOVASCULAR DISEASE 08/23/17 Mumtaz Ortega MD,PHD [address] [place] [address] [employer] Promotions Manager CARDIOTHORACIC SURGERY 09/13/17 01/21/20 Parviz Artis MD [address] [place] [address] CRITICAL CARE MEDICINE 10/18/17 01/21/20 Deondre Nicolas MD [address] [place] [address] NEUROLOGY 11/12/17 03/29/20 Shaan Whitt MD [address] [place] [address] UROLOGY 02/07/18 01/21/20 Myrna Robles, CONFECTIONERY MAKER [address] [place] [address] Referring Physician CARDIOVASCULAR DISEASE 05/01/18 Vero Victor FNP [address] [place], [place] [id number] FAMILY PRACTICE 09/30/18 Hany Geller DPM [address] [place] [address] Consulting Physician PODIATRY/SURGERY 12/06/22 12/07/23 Jovan Weathers DPM [address] [place] [address] [place] [address] Consulting Physician PODIATRY 02/28/23 02/29/24 Sydney Lazaro MD [address] [place] [phone] Internal Medicine - Infectious Disease 02/28/23 02/29/24 documented as of this encounter
--- OUTSIDE RECORDS SUMMARY | 2024-10-12 14:46 | XMS_ITS | Clinical Summary ---
Author Organization [facility] Address [address] [facility] [place] [address] Phone Care Team Providers Care Database Tester Name Role Phone Unavailable Primary Care Provider [...] daily. Active fluticasone propionate (FLONASE) 50 mcg/spray [place], Suspension nasal inhaler Administer 2 Sprays in each nostril daily. Active ipratropium bromide (ATROVENT) 42 mcg (0.06 %) [place], Non-Aerosol Administer 2 Sprays in each nostril [...] on file Legal Sex Male 11:34 AM CERTIFIED HAND THERAPIST Gender Identity Not on file Sexual Orientation Not on file Last Filed Vital Signs Vital Sign Reading Time Taken Comments Blood Pressure 140/77 10/22/2022 10:05 AM CERTIFIED HAND THERAPIST Pulse 70 10/22/2022 10:01 AM CERTIFIED HAND THERAPIST Temperature 35.7 C (96.3 F) 10/22/2022 10:01 AM CERTIFIED HAND THERAPIST Respiratory Rate 10 10/22/2022 10:0 1 AM CERTIFIED HAND THERAPIST Oxygen Saturation 98% 10/22/2022 10: 01 AM CERTIFIED HAND THERAPIST Inhaled Oxygen Concentration - - Weight 81.5 kg (179 lb 11.2 oz) 023 10:01 AM CERTIFIED HAND THERAPIST Height 172.7 cm (5' 8 ) 03/21/2022 [...] Sig/CT Colonography Q 5 years Discontinued Insurance [place] [id number]
--- OUTSIDE RECORDS SUMMARY | 2024-10-12 14:46 | XMS_ITS | Data Portability ---
Author Organization [facility], [address] [facility] ([place]) Address [address] [place] [address] Care Team Providers Care Lab Intern Name Role Phone LYNDSAY BERNARD Primary Care Provider Assessment Encounter Date Assessment Date Assessment LastModified [...] he feels that it is not helpful. SKK [email or web address] Not available 04/30/2024 20:55:37 Plan of Treatment Reminders Order Date Submit Date Provider Last Modified By Organization Details Last Modified Time Details Appointments Establish ed Patient 15.EST 2024 10:00A M Dr. Mayra Rowell Not available Not available Not available Lab None recorded. Referral None recorded. Procedures None recorded. Surgeries None recorded. Imaging None recorded. Medication Orders nortripty line 10 mg capsule 2023 024 [id number] [facility] [place] [address] [place], [place], [id number], 04/30/2024 14:03:08 Patient TargetsNo targets recorded. Patient InstructionsNo instructions recorded. Reason for Referral None Reported. 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 Please review this document and add these problems to the patient's chart manually as needed. Problem Notes None recorded. Medical Equipment None Reported. Allergies Allergen ID Allergen Name Allergen Category Reaction Reaction Severity Criticality Documentation Date Start Date Code Code System Note Provider Name and Address Organization Details Recorded Time 496973 Oxycontin medicatio n Not available Not available Not available 09/23/20232015 28501 6 RxNorm Comme nt: React ion Date: 30 Nov 2010 ; Not Available Not Available Not Available 392375 Substance with sulfonami de structure and antibacte rial mechanism of action (substanc e) medicatio n Not available Not available Not available 09/23/20232015 96309 8003 SNOMED Comme nt: React ion Date: [...] Address Organization Details Last Updated DateTime 4 61370.7 4 g 24.7 kg/m2 173.99 cm 61 /min 124 mm[Hg] 68 mm[Hg] [facility] 4 13:10:51 Social History None recorded. Functional Status None recorded. Mental Status None recorded. Family History Nothing Reported. Medical History No medical history recorded. Past Encounters Encounter ID Performer Location Encounter Start Date Encounter Closed Date Diagnosis/Indication Diagnosis SNOMED-CT Code Diagnosis ICD10 Code Diagnosis Note [id number] Mayra Rowell MD [facility] Specialty Neurology ([place]) [address] [place] [address] 04/30/2024 13:03:23 05/03/2024 06:26:37 Idiopathic progressive polyneuropathy 84881314 G60.3 Health Concerns Section Related Observation LastModified by Organization Detai ls LastModified Time None Recorded Concern Status LastModified by Organization Details LastModified Time None Recorded Advance Directives Directive None Recorded Payers Encounter Date Sequence Insurance Name Policy Number Policy De Jesus Covered Member ID De Jesus Member ID Guarantor Name 04/30/2024 1 [facility] (MEDICARE REPLACEMENT/A DVANTAGE - PPO) [id number] Jovan Rodas [id number] Jovan Rodas Notes Date Note Type Note [...] or a wheelchair.ELISABETH Rowell MD [address] [place] [address], [phone], [facility] 05/01/2024 19:00:20
--- OUTSIDE RECORDS SUMMARY | 2024-10-12 14:46 | XMS_ITS | Referral Summary ---
Author Organization [facility] [facility] 162 Address [address] [place] [address] Care Team Providers Care Purification Supervisor Name Role Phone Ruddy Yang MD Primary Care Provider [phone] Allergies Active Allergy Reactions Criticality Noted Date [...] 1 tablet/capsule (10 mEq total) by mouth boiler shop mechanic before breakfast 4 Active Active Problems Problem Noted Date Diagnosed Date Elective replacement of impl antable cardioverter-defibrillator (ICD) battery required 10/01/2023 Sensorineural hearing loss (SNHL) of both ears 1 09/02/2022 Assessment & Plan (07/03/2023 10:35 AM HERBARIUM WORKER): Hearing test Flonase 2 sprays into each [...] 07/03/2023 Assessment & Plan (07/03/2023 10:35 AM HERBARIUM WORKER): Hearing test Flonase 2 sprays into each [...] (07/11/2022): Added automatically from request for surgery [id number] Pain associated with wound 06/28/2022 S/P TAVR (transcatheter aortic valve replacement ) 05/16/2021 Hx of CABG 02/07/2021 Permanent atrial fibrillation (CMS/HCC) 02/08/20 ICD (implantable cardioverter-defibrillator) in place 02/07/2021 History of coronary artery stent placement 02/07 Biventricular ICD (implantab le cardioverter-defibrillator) in place 01/04/2021 Overview (10/28/2023): Yo [place] BIV ICD. Dx; CHF, SSS. Afib, AV Node Ablation. DOI 10/28/2023- Lynette. Chronic leads 05/25/2015. [place] remote monitoring. LV lead is a Medtronic lead and therefore the device is Not MRI conditional d/t Rafter products. Dr Jovan Beltran-original device implanter in [...] on file Legal Sex Male 1:59 AM HERBARIUM WORKER Gender Identity Not on file Sexual Orientation Not on file Last Filed Vital Signs Vital Sign Reading Time Taken Comments Blood Pressure 118/70 02/11/2024 11:24 AM CDT Pulse 60 02/11/2024 11:24 AM CDT Temperature 36.1 C (97 F) 10/28/2023 1:26 PM HERBARIUM WORKER Respiratory Rate 20 10/28/2023 2:35 PM HERBARIUM WORKER Oxygen Saturation 95% 02/11/2024 11:24 AM CDT Inhaled Oxygen Concentration - - Weight 77.1 kg (170 lb) 02/11/2024 11:24 AM CDT Height 172.7 cm (5' 8 ) 02/11/2024 11:24 AM CDT Body Mass Index 25.85 02/11/2024 11:24 AM CDT Plan of Treatment Not on file Medical Devices Implanted Type Area Slasher Sawyer Device Identifier Shelf Expiration Date Model / Serial / Lot Icd ICD Heart Pacemaker Pacemaker Heart Description:PACEMAKER/ICD Stent Implanted:Qty: 2 Stent Heart Yo Vascular Defib Cardiac [id number] [place] Hf Df4 Is-4 Is-1 Cnctr [id number] - [id number] - [id number] Implanted:Qty: 1 on 10/28/2023 by Eric Ojeda MD at [facility] Yo Vascular 08/25/2025 [id number] / [id number] / Insurance MEDICARE SOLUTIONS MEDICARE [facility] MEDICARE SOLUTIONS MEDICARE SOLUTIONS Care Teams Purification Supervisor Relationship Specialty Start Date End Date Ruddy Yang MD [address] [place] [address] PCP - General Internal Medicine 01/02/21
--- OUTSIDE RECORDS SUMMARY | 2024-10-12 14:46 | XMS_ITS | Encounter Summary ---
Author Organization [facility] Address [address] [place] [address] Care Team Providers Care Breakdown Person Name Role Phone Jovan Beltran MD Unavailable UnavailPrashanth Weston MD Unavailable [phone] Mumtaz Ortega MD,PHD Unavailable [facility] Parviz Sebastian MD Unavailable Unavailable Deondre Nicolas MD Unavailable [phone] Shaan Whitt MD Unavailable [phone] Myrna Robles RADIO DISC JOCKEY Unavailable Unavailable Vero Victor DIGITAL SALES EXECUTIVE Unavailable [phone] Phillip Hammer DO Primary Care Provider [phone] Ruddy Yang MD Primary Care Provider [phone] Hany Geller DPM Unavailable [phone] Jovan Weathers DPM Unavailable [phone] Sydney Lazaro MD Unavailable [phone] Encounter Details Date Type Department Care Team (Late st Contact Info) Description 07/26/2018 Abstract [facility] [address] [place] [phone] Deondre Nicolas MD [address] [place] [phone] Social History Tobacco Use Types Packs/Day Years [...] documented as of this encounter Care Teams Breakdown Person Relationship Specialty Start Date End Date Phillip Hammer DO [address] [place] [address] PCP - General FAMILY PRACTICE 01/22/20 02/29/20 Ruddy Yang MD [address] [place] [phone] PCP - General INTERNAL MEDICINE 03/01/20 Jovan Beltran MD [employer] CLINICAL CARDIAC ELECTROPHYSIOLOGY 04/04/17 Prashanth Koch MD [address] [place] [address] [employer] CARDIOVASCULAR DISEASE 08/23/17 Mumtaz Ortega MD,PHD [address] [place] [address] [employer] CARDIOTHORACIC SURGERY 09/13/17 01/21/20 Parviz Artis MD [address] [place] [address] CRITICAL CARE MEDICINE 10/18/17 01/21/20 Deondre Nicolas MD [address] [place] [address] NEUROLOGY 11/12/17 03/29/20 Shaan Whitt MD [address] [place] [address] UROLOGY 02/07/18 01/21/20 Myrna Robles, RADIO DISC JOCKEY [address] [place] [address] Referring Physician CARDIOVASCULAR DISEASE 05/01/18 Vero Victor FNP [address] [place] [address] FAMILY PRACTICE 09/30/18 Hany Geller DPM [facility] [place] [address] Consulting Physician PODIATRY/SURGERY 12/06/22 12/07/23 Jovan Weathers DPM [facility] [place] [address] Consulting Physician PODIATRY 02/28/23 02/29/24 Sydney Lazaro MD [address] [place] [phone] Internal Medicine - Infectious Disease 02/28/23 02/29/24 documented as of this encounter
--- OUTSIDE RECORDS SUMMARY | 2024-10-12 14:47 | XMS_ITS | Referral Summary ---
Author Organization [facility] Address [address] [place] [address] Care Team Providers Care Global Account Manager Name Role Phone Ruddy Yang MD Primary Care Provider [phone] Source Comments [facility],non-owned Affiliates and Associated Physician Practices is amultiple site organization consisting of ambulatory clinics and hospital sitesin [place], [place], [place] and [place]. This disclosure is being madepursuant to the Care Everywhere program and may not contain all information available regarding this patient. Last updated 18.[employer] [facility] Medications * Be aware that medications may [...] of Treatment Not on file Care Teams Global Account Manager Relationship Specialty Start Date End Date Ruddy Yang MD PCP - General 07/08/20
--- OUTSIDE RECORDS SUMMARY | 2024-10-12 14:47 | XMS_ITS | Clinical Summary ---
Author Organization [facility] [employer] Address [address] [place] [address] Care Team Providers Care Boy'S Adviser Name Role Phone Ruddy Yang MD Primary Care Provider [phone] Source Comments [employer],non-owned Affiliates and Associated Physician Practices is amultiple site organization consisting of ambulatory clinics and hospital sitesin [place], [place], [place] and [place]. This disclosure is being madepursuant to the Care Everywhere program and may not contain all information available regarding this patient. Last updated 18.[employer] [facility] Medications * Be aware that medications may [...] age to complete this topic Care Teams Boy'S Adviser Relationship Specialty Start Date End Date Ruddy Yang MD PCP - General 07/08/20
--- OUTSIDE RECORDS SUMMARY | 2024-10-12 14:47 | XMS_ITS | Clinical Summary ---
Author Organization [facility] Address [address] [place] [address] Care Team Providers Care Director Pharmacy Services Name Role Phone Jovan Beltran MD Unavailable UnavailPrashanth Weston MD Unavailable [phone] Myrna Robles NP Unavailable Unavailable Vero Victor COMMERCIAL REAL ESTATE ASSISTANT Unavailable [phone] Ruddy Yang MD Primary Care Provider [phone] Allergies Active Allergy Reactions Criticality Noted Date [...] valve stenosis,Acute on chronic diastolic heart failure ([facility]) TAKE 1 TABLET BY MOUTH TWICE DAILY [...] with complication, subsequent encounter,PVD (peripheral vascular disease) ([facility]) Apply topically 2 (two) times daily. 25 g 3 3 Active Active Problems Problem Noted Date Diagnosed Date Open wound of fourth toe of right foot, initial encounter 07/15/2023 Pressure ulcer of other site, stage 4 ([facility]) 03/05/2023 Acute osteomyelitis ([facility]) 03/05/2023 PICC (peripherally inserted central catheter) in place 2023 GI bleed 05/15/2022 Chronic systolic heart failure ([facility]) 05/11/2020 Hypokalemia 01/22/2020 Foot-drop 11/07/2017 Neuropathy, 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 Stroke ([facility]) 11/01/2017 Acute on chronic diastolic heart failure ([facility]) 10/08/2017 Stage 3 chronic kidney disease ([facility]) 10/08/2017 Acute right MCA stroke ([facility]) 018 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 Nonrheumatic aortic valve stenosis 07/11/2017 Abdominal aortic aneurysm (AAA) without rupture 07/11/2017 Persistent atrial fibrillation ([facility]) 04/04/2017 Pacemaker 04/04/2017 Osteoarthritis of lumbar spine 08/10/2015 Chronic obstructive pulmonary disease ([facility]) 01/29/2014 Overview (12/31/2018): Overview: COPD S/P AAA (abdominal aortic aneurysm) repair PVD (peripheral vascular disease) Hypertension Hyperlipidemia Carotid stenosis CAD (coronary artery disease) Orthostatic hypotension Overview (08/23/2017): Near syncope CKD (chronic kidney disease) stage 3, GFR 30-59 ml/min ([facility]) Hypokalemia Paroxysmal atrial fibrillation ([facility]) Atrial fibrillation, persistent ([facility] ) Chronic anticoagulation Pressure ulcer of other site, stage 2 ([facility]) Resolved Problems Problem Noted Date Diagnosed Date Resolved Date ICD (implantable cardioverte r-defibrillator) in place 04/04/2017 04/04/2017 Paroxysmal atrial fibrillati on ([facility]) 02/10/2018 Paroxysmal atrial fibrillati on ([facility]) 05/29/2018 Atrial fibrillation, persist ent ([facility]) 05/29/2018 Encounters Date Type Department Care Team Description 07/31/2024 10:27 AM BACK ORDER CLERK - 07/31/2024 11:59 PM BACK ORDER CLERK Hospital Encounter [facility] [address] [place] [address] Raisa Shearer, COMMERCIAL REAL ESTATE ASSISTANT Discharge Disposition: Home or Self Care (Routine [...] Comments Blood Pressure 126/74 07/23/2023 2:27 PM BACK ORDER CLERK Pulse 74 07/23/2023 2:27 PM BACK ORDER CLERK Temperature 36.4 C (97.5 F) 05/21/2022 9:46 AM CDT Respiratory Rate 18 07/23/2023 2:27 PM BACK ORDER CLERK Oxygen Saturation 96% 07/23/2023 2:27 PM BACK ORDER CLERK Inhaled Oxygen Concentration - - Weight 77.1 kg (170 lb) 07/23/2023 2:27 PM BACK ORDER CLERK Height 172.7 cm (5' 8 ) 07/23/2023 2:27 PM BACK ORDER CLERK Body Mass Index 25.85 07/23/2023 2:27 PM BACK ORDER CLERK Plan of Treatment Health Maintenance Due Date Last Done Comments Pneumococcal Vaccine: 65+ Years (1 of 2 - PCV) 1947 PHQ-2 ([facility] [place]) 1953 Zoster Vaccines (1 of 2) 1991 Annual Medicare Wellness Visit 2006 RSV Immunization or 60+ Years (1 - 1-dose 75+ series) 2016 ASCVD LDL 10/18/2018 10/18/2017, 02/03/2018, 04/04/2015 COVID-19 Vaccine (3 - season) 2024 11/09/2020, 10/19/2020 Influenza Adult (#1) 2024 05/21/2022, 04/19/2021, 06/21/2020, Additional history exists PHQ-2 ([facility] [place]) 08/26/2024 DTaP, Tdap and Td Vaccines (2 [...] Comments LIPID PANEL TIMED 10/18/2017 2:35 AM BACK ORDER CLERK from Last 3 Months or Most Recently Relevant to Health Maintenance Results * (ABNORMAL) LIPID PANEL (10/18/2017 2:35 AM BACK ORDER CLERK) [facility] CHOLESTEROL 128 0 - 200 MG/DL 10/18/2017 4:25 AM BACK ORDER CLERK [facility] Comment:DESIRABLE: <200 TRIGLYCERIDES 190(H) 0 - 149 MG/DL 10/18/2017 4:25 AM BACK ORDER CLERK [facility] Comment:150-199 BORDERLINE H [facility] HDL 24(L) >39 MG/DL 10/18/2017 4:25 AM [facility] Comment:LOW: <40 DIRECT LDL 65 0 - 129 MG/DL 10/18/2017 4:25 AM BACK ORDER CLERK [facility] Comment:<100 OPTIMAL 10/18/2017 2:35 AM BACK ORDER CLERK 10/18/2017 3:47 AM BACK ORDER CLERK us Generic Conversion [facility] Final R esult [facility] [address] [place] [address], [id number] from Last 3 Months or Most Recently Relevant to Health Maintenance Additional Health Concerns Infection Onset Date 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 12/19/2023 Insurance Advance Directives Documents on File Type Date Recorded Patient Garment Liner Expl anation Advance Directives and Living Will 05/17/2022 11:46 AM 03/09/1996 POA FOR HEALTH CARE Advance Directives and Living Will 11/09/2017 ADVANCE DIRECTIVE Advance Directives and Living Will 11/09/2017 ADVANCE DIRECTIVE Advance Directives and Living Will 10/29/2017 ADVANCE DIRECTIVE Advance Directives and Living Will 10/29/2017 SHORT FORM POWER OF MASTER ELECTRICIAN Advance Directives and Living Will 10/17/2017 ADVANCE DIRECTIVE Advance Directives and Living Will 10/17/2017 SHORT FORM POWER OF MASTER ELECTRICIAN Advance Directives and Living Will 10/17/2017 ADVANCE DIRECTIVE Advance Directives and Living Will 10/17/2017 SHORT FORM POWER OF MASTER ELECTRICIAN Advance Directives and Living Will 10/10/2017 ADVANCE DIRECTIVE Advance Directives and Living Will 10/10/2017 SHORT FORM POWER OF MASTER ELECTRICIAN Advance Directives and Living Will 10/09/2017 ADVANCE DIRECTIVE Advance Directives and Living Will 10/02/2017 ADVANCE DIRECTIVE Advance Directives and Living Will 10/01/2017 SHORT FORM POWER OF MASTER ELECTRICIAN Advance Directives and Living Will 10/01/2017 ADVANCE [...] 10:14 PM 05/21/2022 6:14 PM Care Teams Director Pharmacy Services Relationship Specialty Start Date End Date Ruddy Yang MD [address] [place] [address] PCP - General INTERNAL MEDICINE 03/01/20 Jovan Beltran MD [place] [employer] CLINICAL CARDIAC ELECTROPHYSIOLOGY 04/04/17 Prashanth Koch MD [address] [place] [address] [place] CARDIOVASCULAR DISEASE 08/23/17 Myrna Robles NP [address] [place] [address] Referring Physician CARDIOVASCULAR DISEASE 05/01/18 Vero Victor FNP [address] [place] [address] FAMILY PRACTICE 09/30/18
--- OUTSIDE RECORDS SUMMARY | 2024-10-12 14:47 | XMS_ITS | Clinical Summary ---
Author Organization [facility] Address [address], [facility] [address] [place] [address] Phone Care Team Providers Care Corrugator Supervisor Name Role Phone Provider, Not On File [...] drink = 0.6 oz pur e alcohol) [facility] Utilities Answer Date Recorded In the past 12 months has [place] [employer], [employer], or water [employer] threatened to shut off services in your home? Patient declined 09/24/2023 Social Connection and Isolation Panel [NHANES] A nswer Date Recorded In a typical week, how many times do you talk on the phone with family, friends, or neighbors? Patient declined 09/24/2023 How often do you get togethe r with friends or relatives? Patient declined 09/24/2023 How often do you attend buddhism or sikh serv ices? Patient declined 09/24/2023 Do you belong to any clubs o r organizations such as buddhism groups, unions, fraternal or athletic groups, or [...] Answer Date Recorded PHQ-2 Score 0 04/27/2019 [facility] of Occupat ional [facility] - Occupational Stress Questionnaire Answer Date Recorded [...] place to sleep or slept in a jail (including now)? Patient declined 09/24/2023 Sex and Gender Information Value Date Recorded Sex Assigned at Not on file Legal Sex Male 2:21 PM WATER METER MECHANIC Gender Identity Not on file Sexual Orientation Not on file Last Filed Vital Signs Vital Sign Reading Time Taken Comments Blood Pressure 150/84 09/26/2023 8:00 AM WATER METER MECHANIC Pulse 74 09/26/2023 8:00 AM WATER METER MECHANIC Temperature 35.9 C (96.7 F) 09/26/2023 8:33 AM WATER METER MECHANIC Respiratory Rate 20 09/26/2023 8:00 AM WATER METER MECHANIC Oxygen Saturation 97% 09/26/2023 8:0 0 AM WATER METER MECHANIC Inhaled Oxygen Concentration - - Weight 77.5 kg (170 lb 12.8 oz) 09/26/2023 5:55 AM WATER METER MECHANIC daily weight Height 172.7 cm (5' 8 ) 09/24/2023 3:06 PM WATER METER MECHANIC Body Mass Index 25.97 09/24/2023 3:06 PM WATER METER MECHANIC Plan of Treatment Health Maintenance Due Date [...] patient's age to complete this topic Insurance [facility] MEDICARE [facility] MEDICARE C [facility] Advance Directives * Full Code (Latest Code Status on File) Date Activated Date Inactivated Comments 09/24/2023 4:08 PM 09/26/2023 3:01 PM CPR-Full Cristiane tment: FULL ARREST: Attempt Resuscitation/CPR wit intubation and mechanical ventilation. PRE-ARREST: Use entire range of life support measures to stabilize the patient. Care Teams Corrugator Supervisor Relationship Specialty Start Date End Date Provider, Not On File [place] PCP - General 09/26/23
--- OUTSIDE RECORDS SUMMARY | 2024-10-12 14:47 | XMS_ITS | Encounter Summary ---
Author Organization [facility] Address [address] [place] [address] Care Team Providers Care Watch Leader Name Role Phone Jovan Beltran MD Unavailable UnavailPrashanth Weston MD Unavailable [phone] Mumtaz Ortega MD,PHD Unavailable Parviz Mcbride MD Unavailable Unavailable Deondre Nicolas MD Unavailable [phone] Shaan Whitt MD Unavailable [phone] Myrna Robles PRECISION DYER Unavailable Unavailable Vero Victor DRUG ABUSE COUNSELOR Unavailable [phone] Phillip Hammer DO Primary Care Provider [phone] Ruddy Yang MD Primary Care Provider [phone] Hany Geller DPM Unavailable [phone] Jovan Weathers DPM Unavailable [phone] Sydney Lazaro MD Unavailable [phone] Encounter Details Date Type Department Care Team (Late st Contact Info) Description 11/09/2017 Abstract [facility] [address] [place] [address] , Generic Conversion, Social History Tobacco Use [...] documented as of this encounter Care Teams Watch Leader Relationship Specialty Start Date End Date Phillip Hammer DO [address] [place] [address] PCP - General FAMILY PRACTICE 01/22/20 02/29/20 Ruddy Yang MD [address] [place] [address] PCP - General INTERNAL MEDICINE 03/01/20 Jovan Beltran MD [place] [employer] CLINICAL CARDIAC ELECTROPHYSIOLOGY 04/04/17 Prashanth Koch MD [address] [place] [address] [place] [employer] CARDIOVASCULAR DISEASE 08/23/17 Mumtaz Ortega MD,PHD [address] [place] [address] [place] [employer] CARDIOTHORACIC SURGERY 09/13/17 01/21/20 Parviz Artis MD [address] [place] [address] CRITICAL CARE MEDICINE 10/18/17 01/21/20 Deondre Nicolas MD [address] [place] [address] NEUROLOGY 11/12/17 03/29/20 Shaan Whitt MD [address] [place] [address] UROLOGY 02/07/18 01/21/20 Myrna Robles PRECISION DYER [address] [place] [address] Referring Physician CARDIOVASCULAR DISEASE 05/01/18 Vero Victor, DRUG ABUSE COUNSELOR [address] [place] [address] FAMILY PRACTICE 09/30/18 Hany Geller DPM [facility] [place] [address] Consulting Physician PODIATRY/SURGERY 12/06/22 12/07/23 Jovan Weathers DPM [facility] [place] [address] Consulting Physician PODIATRY 02/28/23 02/29/24 Sydney Lazaro MD [address] [place] [phone] Internal Medicine - Infectious Disease 02/28/23 02/29/24 documented as of this encounter
--- OUTSIDE RECORDS SUMMARY | 2024-10-12 14:47 | XMS_ITS | Clinical Summary ---
Author Organization [facility] Address [address] [place] [address] Phone Care Team Providers Care Wireless Communications Engineer Name Role Phone Ruddy Yang MD Primary Care Provider [phone] Allergies Active Allergy Reactions Criticality Noted Date [...] Ablation. DOI 05/25/[address] Jovan Beltran. [place] remote monitoring. Permanent atrial fibrillation 04/04/2017 Benign [...] Vaccine (#1) 2024 04/26/2015, 2013 Care Teams Wireless Communications Engineer Relationship Specialty Start Date End Date Ruddy Yang MD [address] [place] [phone] PCP - General Internal Medicine 12/19/20
--- OUTSIDE RECORDS SUMMARY | 2024-10-12 14:47 | XMS_ITS | Encounter Summary ---
Author Organization [facility] Address [address] [place] [address] Care Team Providers Care Director Of Marketing Communications Name Role Phone Jovan Beltran MD Unavailable UnavailPrashanth Weston MD Unavailable [phone] Mumtaz Ortega MD,PHD Unavailable Parviz Mcbride MD Unavailable Unavailable Deondre Nicolas MD Unavailable [phone] Shaan Whitt MD Unavailable [phone] Myrna Robles PLANT HR MANAGER Unavailable Unavailable Vero Victor MOLDER APPRENTICE Unavailable [phone] Phillip Hammer DO Primary Care Provider [phone] Ruddy Yang MD Primary Care Provider [phone] Hany Geller DPM Unavailable [phone] Jovan Weathers DPM Unavailable [phone] Sydney Lazaro MD Unavailable [phone] Encounter Details Date Type Department Care Team (Late st Contact Info) Description 02/02/2016 Abstract [facility] [address] [place] [address] Jovan Beltran MD Social History [...] documented as of this encounter Care Teams Director Of Marketing Communications Relationship Specialty Start Date End Date Phillip Hammer DO [address] [place] [address] PCP - General FAMILY PRACTICE 01/22/20 02/29/20 Ruddy Yang MD [address] [place] [address] PCP - General INTERNAL MEDICINE 03/01/20 Jovan Beltran MD [place] [employer] Installer CLINICAL CARDIAC ELECTROPHYSIOLOGY 04/04/17 Prashanth Koch MD [address] [place] [address] [place] [employer] Installer CARDIOVASCULAR DISEASE 08/23/17 Mumtaz Ortega MD,PHD [address] [place] [address] [place] [employer] Installer CARDIOTHORACIC SURGERY 09/13/17 01/21/20 Parviz Artis MD [address] [place] [address] CRITICAL CARE MEDICINE 10/18/17 01/21/20 Deondre Nicolas MD [address] [place] [address] NEUROLOGY 11/12/17 03/29/20 Shaan Whitt MD [address] [place] [address] UROLOGY 02/07/18 01/21/20 Myrna Robles, PLANT HR MANAGER [address] [place] [address] Referring Physician CARDIOVASCULAR DISEASE 05/01/18 Vero Victor, MOLDER APPRENTICE [address] [place], [place] [phone] FAMILY PRACTICE 09/30/18 Hany Geller DPM [address] [facility] [place] [address] Consulting Physician PODIATRY/SURGERY 12/06/22 12/07/23 Jovan Weathers DPM [address] [place] [address] Consulting Physician PODIATRY 02/28/23 02/29/24 Sydney Lazaro MD [address] [place] [phone] Internal Medicine - Infectious Disease 02/28/23 02/29/24 documented as of this encounter
--- OUTSIDE RECORDS SUMMARY | 2024-10-12 14:47 | XMS_ITS | Encounter Summary ---
Author Organization [facility] Address [address] [place] [address] Care Team Providers Care Materials Management Manager Name Role Phone Jovan Beltran MD Unavailable UnavailPrashanth Weston MD Unavailable [phone] Myrna Robles NP Unavailable Unavailable Vero Victor SHIPYARD HELPER Unavailable [phone] Ruddy Yang MD Primary Care Provider [phone] Hany Geller DPM Unavailable [phone] Jovan Weathers DPM Unavailable [phone] Sydney Lazaro MD Unavailable [phone] Encounter Details Date Type Department Care Team (Late st Contact Info) Description 05/22/2022 Hospital Follow-up Call [facility] Cardiovascular Care Unit [address] [place] [address] Zainab Mckinney, RN Social History [...] documented as of this encounter Care Teams Materials Management Manager Relationship Specialty Start Date End Date Ruddy Yang MD [address] [place] [address] PCP - General INTERNAL MEDICINE 03/01/20 Jovan Beltran MD [place] Business Objects Architect CLINICAL CARDIAC ELECTROPHYSIOLOGY 04/04/17 Prashanth Koch MD [address] [place] [address] [place] Business Objects Architect CARDIOVASCULAR DISEASE 08/23/17 Myrna Robles ENERGY EFFICIENT SITE MANAGER [address] [place] [address] Referring Physician CARDIOVASCULAR DISEASE 05/01/18 Vero Victor, SHIPYARD HELPER [address] [place] [address] FAMILY PRACTICE 09/30/18 Hany Geller DPM [address] [place] [address] Consulting Physician PODIATRY/SURGERY 12/06/22 12/07/23 Jovan Weathers DPM [address] [place] [address] Consulting Physician PODIATRY 02/28/23 02/29/24 Sydney Lazaro MD [address] [place] [phone] Internal Medicine - Infectious Disease 02/28/23 02/29/24 documented as of this encounter
--- OUTSIDE RECORDS SUMMARY | 2024-10-12 14:47 | XMS_ITS | Data Portability ---
Author Organization [facility], Main Office Address [address] [place] [address] Care Team Providers Care Referral Manager Name Role Phone LYNDSAY BERNARD Primary Care Provider CHUCHO MIRANDA Remedial Project Manager [phone] Assessment No assessment recorded. Plan of Treatment [...] By Organization Details Last Modified Time 08/06/2024 [id number] it is unknown whether not he will pass his cardiac clearance and his son is concerned about the risk were dean in any case. We will set up open reduction nasal fracture until a decision is established [facility] Not available 08/06/2024 12:42:45 Reason for Referral None Reported. Problems Name Problem SNOMED Code Status Onset Date Resolution Date Notes Provider Name and Address Organization Details Recorded Time Closed fracture of nasal bones 10540735 Active 024 Glen Mayen MD [address], [address] , [facility] 12:42:25 Problem Notes None recorded. Procedures Surgical History Date Name Laterality Status Provider Name and Address Organization Details Recorded Time 08/26/19 13 cholecystectomy completed Malorie Elizabeth RN [facility] 08/06/2024 17:58:37 Imaging Results None recorded. Procedure Notes None recorded. Medical Equipment None Reported. Allergies Allergen ID Allergen Name Allergen Category Reaction Reaction Severity Criticality Documentation Date Start Date Code Code System Note Provider Name and Address Organization Details Recorded Time 42754 Oxycontin medicatio n Not available Not available Not available 08/06/2024 93784 6 RxNorm Malorie Elizabeth RN null, [place] [facility] 4 12:26:30 Medications Name Sig Start Date [...] Address Organization Details Last Updated DateTime 08/06/2024 81237.92 g 26.4 kg/m2 172.72 cm 98 [degF] Malorie Elizabeth RN [facility] 08/06/2024 12:24:19 Social History Question Answer Notes LastModified by Organizat ion Details LastModified Time Tobacco Smoking Status Former Smoker Malorie Elizabeth RN null, [facility] 08/06/2024 12:23:16 What Is Your Level [...] 12:20:50 Notes:NO ENT Medical History Condition Response HYPERTENSION Y PACEMAKER Y HEART DISEASE/HEART PROBLEMS Y Past Encounters Encounter ID Performer Location Encounter Start Date Encounter Closed Date Diagnosis/Indication Diagnosis SNOMED-CT Code Diagnosis ICD10 Code Diagnosis Note [id number] Glen Mayen MD [facility] [place] [address] [place] [address] 08/06/2024 11:56:02 08/20/2024 10:43:43 Closed fracture of nasal bones 94184817 S02.2XXA Health Concerns Section Related Observation LastModified by Organization Detai ls LastModified Time None Recorded Concern Status LastModified by Organization Details LastModified Time None Recorded Advance Directives Directive None Recorded Payers Encounter Date Sequence Insurance Name Policy Number Policy De Jesus Covered Member ID De Jesus Member ID Guarantor Name 08/06/2024 1 [facility] (MEDICARE REPLACEMENT/A DVANTAGE - HMO) [id number] Jovan Rodas [id number] Jovan Rodas Notes Date Note Type Note Provider Name and Address Organization Details Recorded Time 08/06/2024 text/html This patient fel l and fractured his nose. There is a prominent external visible displacement of his nasal bones. He does have a significant cardiac history. Glen Mayen MD [address] [facility] [address], [place], [address], [place] [facility] 08/06/2024 12:43:01
--- OUTSIDE RECORDS SUMMARY | 2024-10-12 14:47 | XMS_ITS | Patient Health Summary ---
Author Organization [facility] Address [address] [place] [address] Care Team Providers Care Doctor Of Dental Medicine Name Role Phone Ruddy Yang MD Primary Care Provider [phone] Note from [facility],non-owned Affiliates and Associated Physician Practices is amultiple site organization consisting of ambulatory clinics and hospital sitesin [place], [place], [place] and [place]. This disclosure is being madepursuant to the Care Everywhere program and may not contain all information available regarding this patient. Last updated 18.[facility] Medications * Be aware that medications may [...] Body Mass Index - - Care Teams Doctor Of Dental Medicine Relationship Specialty Start Date End Date Ruddy Yang MD PCP - General 07/08/20
== END 2024-10-12 12:24 | disposition home or self-care (01) ==
LOC: CHSIMG 12:24
PROVIDERS: PCP Internal Medicine; Visit Provider Internal Medicine
DX: R91.8 Other nonspecific abnormal finding of lung field (principal); R06.00 Dyspnea, unspecified
CPT/HCPCS: 71250

== ENCOUNTER 2024-11-04 11:00 | Outpatient (RCR) | payer MEDICARE, SELFPAY ==
[2024-11-02 14:34] VITALS: BP 123/70; PULSE 60; RESP 16; O2SAT 98; BMI 25.6
== END 2024-11-06 13:39 | disposition home or self-care (01) ==
PROVIDERS: PCP Internal Medicine; Visit Provider Internal Medicine
DX: I50.9 Heart failure, unspecified (principal); I20.9 Angina pectoris, unspecified
CPT/HCPCS: 93798

== ENCOUNTER 2025-01-05 16:38 | Outpatient (CLI) | payer MEDICARE, SELFPAY ==
--- OUTSIDE RECORDS SUMMARY | 2025-01-05 16:43 | XMS_ITS | Encounter Summary ---
Author Organization [facility] Healthcare Address [address] [place] [address] Care Team Providers Care Plant Electrical Engineer Name Role Phone Ruddy Yang MD Primary Care Provider + [phone] Reason for Visit * Cardiology (Routine) - Closed Specialty Diagnoses / Procedures Referred By Adri t Referred To Contact Diagnoses ICD (implantable cardioverter-defibrillator) in place Permanent atrial fibrillation (HCC) Biventricular ICD (implantable cardioverter-defibrillator) in place S/P AV josué ablation Congestive heart failure, unspecified HF chronicity, unspecified heart failure type (HCC) Procedures DEVICE CHECK - REMOTE Jraett Yousif MD [address] [facility] [address] [place] [address] Phone: tel: fax: [facility] Medical Group Referral ID Status Reason Start Date Expiration Date Visits Re quested Visits Authorized [id number] Closed 12/30/2024 07/02/2026 1 1 Encounter Details Date Type Department Care Team (Latest Contact Info) Description 01/04/2025 8:00 AM CDT Ancillary Procedure [facility] Medical Group Cardiology [address] [place] [address] [place] [phone] ICD (implantable cardioverter-defibri llator) in place; Permanent atrial fibrillation (HCC); Biventricular ICD (implantable cardioverter-defibri llator) in place; S/P AV josué ablation; Congestive heart failure, unspecified HF chronicity, unspecified heart failure type (HCC) Social History Tobacco Use Types Packs/Day Years Used Date Smoking Tobacco: Former Cigarettes Q uit: 2007 Smokeless Tobacco: Former Chew Quit: 1971 Alcohol Use Standard Drinks/Week Comments No 0 [...] on file Legal Sex Male 1:59 AM CAN FILLING ROOM SWEEPER Gender Identity Not on file Sexual Orientation Not on file documented as of this encounter Plan of Treatment Pending Results Name Type Priority Associated Diagnoses Date /Time DEVICE CHECK - REMOTE Cardiac Services Routine ICD (implantable cardioverter-defibrilla tor) in place Permanent atrial fibrillation (HCC) 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 S/P AV josué ablation Congestive heart failure, unspecified HF chronicity, unspecified heart failure type (HCC) 01/04/2025 1:06 PM CDT documented as of this encounter Visit Diagnoses Diagnosis ICD (implantable cardioverter-defibrillator) in place Permanent atrial fibrillation (HCC) Atrial fibrillation Biventricular ICD (implantable cardioverter-defibrillator) in place S/P AV josué ablation Congestive heart failure, unspecified HF chronicity, unspecified heart failure type (HCC) documented in this encounter Care Teams Plant Electrical Engineer Relationship Specialty Start Date End Date Ruddy Yang MD [address] [place] [address] PCP - General Internal Medicine 01/02/21 documented as of this encounter
--- OUTSIDE RECORDS SUMMARY | 2025-01-05 16:43 | XMS_ITS | Referral Summary ---
Author Organization [facility] [address] [address] [place] [phone] Care Team Providers Care Upper Trimmer Name Role Phone Ruddy Yang MD Primary Care Provider + [phone] Encounters Date Type Department Care Team Description 01/04/2025 8:00 AM CDT Ancillary Procedure [facility] Cardiology [address] [place] [address] [place] [phone] ICD (implantable cardioverter-defibrilla tor) in place; Permanent atrial fibrillation (HCC); 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; S/P AV josué ablation; Congestive heart failure, unspecified HF chronicity, unspecified heart failure type (HCC) 01/04/2025 Telephone [facility] [address] [place] [phone] Jarett Yousif MD 12/30/2024 Orders Only [facility] Cardiology [address] [place] [address] [place] [phone] Jarett Yousif MD ICD (implantable cardioverter-defibrilla tor) in place (Primary Dx); Permanent atrial fibrillation (HCC); 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; S/P AV josué ablation; Congestive heart failure, unspecified HF chronicity, unspecified heart failure type (HCC) 12/30/2024 10:00 AM CDT Ancillary Procedure [facility] Cardiology [address] [place] [address] [place] [phone] Longstanding persistent atrial fibrillation (HCC); SSS (sick sinus syndrome) (HCC); Congestive heart failure, unspecified HF chronicity, unspecified heart failure type (HCC); 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; History of atrioventricular josué ablation 12/29/2024 Telephone [facility] Cardiology [address] [place] [address] [place] [phone] Jarett Yousif MD 12/04/2024 11:30 AM CDT Office Visit [facility] Cardiology [address] [place] [address] [place] [phone] Letitia Kumar NP Coronary artery disease of [place] heart with stable angina pectoris, unspecified vessel or lesion type (Primary Dx); 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; Permanent atrial fibrillation (HCC); Chronic anticoagulation 11/24/2024 8:45 AM CDT Ancillary Procedure [facility] Cardiology [address] [place] [address] [place] [phone] 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 (Primary Dx); Cardiomyopathy, unspecified type (HCC); SSS (sick sinus syndrome) (HCC); Permanent atrial fibrillation (HCC); Congestive heart failure, unspecified HF chronicity, unspecified heart failure type (HCC) 11/09/2024 8:45 AM CDT Office Visit [facility] Cardiology [address] [place] [address] [place] [phone] Jarett Yousif MD 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 (Primary Dx); Hx of CABG; Permanent atrial fibrillation (HCC); S/P TAVR (transcatheter aortic valve replacement); History of coronary artery stent placement from Last 3 Months Allergies Active Allergy Reactions Criticality Noted Date Comments Donepezil Other (See comments) Low 03/04/2023 Oxycodone Hallucinations,Other (See comments),Unknown High 10/12/2014 Other reaction(s): Hallucinations, Other (See Comments), Other (see Comments) agitation agitation agitation agitation agitation agitation Other reaction(s): Hallucinations, Other (See Comments), Other (see Comments) agitation agitation agitation agitation Sulfa (Sulfonamide Antibiotics) Rash,Unknown Medium 10/12/2014 Pt not sure Other reaction(s): Unknown, Vomiting Other reaction(s): Unknown, Vomiting Medications multivitamin capsule take 1 capsule by oral route every day 0 0 4 Active allopurinoL (ZYLOPRIM) 100 mg tabletIndications :prevention of acute gout attack Take 1 tablet (100 mg total) by mouth every morning Active atorvastatin (LIPITOR) 40 mg tabletIndications :hyperlipidemia Take 1 tablet (40 mg total) by mouth nightly Active furosemide (LASIX) 40 mg tabletIndications :Edema,hypertensi on Take 1 tablet (40 mg total) by mouth daily Active pregabalin (LYRICA) 100 mg capsuleIndication s:PAIN Take 1 capsule (100 mg total) by mouth 3 (three) times a day Active tamsulosin (FLOMAX) 0.4 mg extended release capsuleIndication s:benign prostatic hyperplasia with lower urinary tract sx Take 1 capsule (0.4 mg total) by mouth every morning Active traZODone (DESYREL) 50 mg tabletIndications :insomnia associated with depression Take 1 tablet (50 mg total) by mouth nightly as needed Active carvediloL (COREG) 12.5 mg tabletIndications :hypertension Take 1 tablet (12.5 mg total) by mouth 2 (two) times a day with meals Active cholecalciferol (VITAMIN D-3) 25 mcg (1,000 unit) tabletIndications :Vitamin D Deficiency Take 1 tablet (1,000 Units total) by mouth every morning Active finasteride (PROSCAR) 5 mg tablet Take 1 tablet (5 mg total) by mouth daily Active pantoprazole DR (PROTONIX) 40 mg EC tabletIndications :Treatment of Non-Bleeding Gastric Disorder Take 1 tablet (40 mg total) by mouth every morning Active Eliquis 2.5 mg tabletIndications :atrial fibrillation Take 1 tablet (2.5 mg total) by mouth 2 (two) times a day 2 Active traMADoL (ULTRAM) 50 mg tabletIndications :Neuropathic Pain Take 1 tablet (50 mg total) by mouth 3 (three) times a day 2 Active aspirin 81 mg enteric coated tablet Take 1 tablet (81 mg total) by mouth daily Active potassium chloride ER 10 mEq CR capsule Take 1 tablet/capsule (10 mEq total) by mouth imaging account manager before breakfast 4 Active Active Problems Problem Noted Date Diagnosed Date Elective replacement of impl antable cardioverter-defibrillator (ICD) battery required 10/01/2023 Sensorineural hearing loss (SNHL) of both ears 1 09/02/2022 Assessment & Plan (07/03/2023 10:35 AM RN ENDOCRINOLOGY): Hearing test Flonase 2 sprays into each [...] 07/03/2023 Assessment & Plan (07/03/2023 10:35 AM RN ENDOCRINOLOGY): Hearing test Flonase 2 sprays into each [...] speech 03/17/2023 Osteomyelitis of foot, right, acute 03/17/2023 Non-healing wound of lower extremity 07/11/2022 Overview (07/11/2022): Added automatically from request for surgery [id number] Pain associated with wound 06/28/2022 S/P TAVR (transcatheter aortic valve replacement ) 05/16/2021 Hx of CABG 02/07/2021 Permanent atrial fibrillation 02/07/2021 ICD (implantable cardioverter-defibrillator) in place 02/07/2021 History of coronary artery stent placement 02/07 Biventricular ICD (implantab le cardioverter-defibrillator) in place 01/04/2021 Overview (10/28/2023): Yo Hope BIV ICD. Dx; CHF, SSS. Afib, AV Node Ablation. DOI 10/28/2023- Lynette. Chronic leads 05/25/2015. Sav remote monitoring. LV lead is a Medtronic lead and therefore the device is Not MRI conditional d/t WeStudy.In products. Dr Jovan Beltran-original device implanter in [...] 2007 Smokeless Tobacco: Former Chew Quit: 1971 Tobacco [...] on file Legal Sex Male 1:59 AM RN ENDOCRINOLOGY Gender Identity Not on file Sexual Orientation Not on file Last Filed Vital Signs Vital Sign Reading Time Taken Comments Blood Pressure 122/70 12/04/2024 11:20 AM CDT Pulse 64 12/04/2024 11:20 AM CDT Temperature 36.1 C (97 F) 10/28/2023 1:26 PM RN ENDOCRINOLOGY Respiratory Rate 20 10/28/2023 2:35 PM RN ENDOCRINOLOGY Oxygen Saturation 97% 12/04/2024 11:20 AM CDT Inhaled Oxygen Concentration - - Weight 77.1 kg (170 lb) 12/04/2024 11:20 AM CDT Height 172.7 cm (5' 8 ) 12/04/2024 11:20 AM CDT Body Mass Index 25.85 12/04/2024 11:20 AM CDT Plan of Treatment Not on file Medical Devices Implanted Type Area Email Marketing Specialist Device Identifier Shelf Expiration Date Model / Serial / Lot Icd ICD Heart Pacemaker Pacemaker Heart Description:PACEMAKER/ICD Stent Implanted:Qty: 2 Stent Heart Yo Vascular Defib Cardiac [id number] Hope Hf Df4 Is-4 Is-1 Cnctr [id number] - [id number] - [id number] Implanted:Qty: 1 on 10/28/2023 by Eric Ojeda MD at [facility] [employer] 08/25/2025 [id number] / [id number] / Procedures Procedure Name Priority Date/Time Associated Diagnosis Comments DEVICE CHECK - REMOTE Routine 11/24/2024 10:05 AM CDT Cardiomyopathy, unspecified type (HCC) SSS (sick sinus syndrome) (HCC) Permanent atrial fibrillation (HCC) from Last 3 Months Results * DEVICE CHECK - REMOTE (11/24/2024 10:05 AM CDT) Anatomical Region Laterality Modality Other Narrative 12/03/2024 8:25 AM CDT Restoriusant BIV ICD. Dx; CHF, SSS. Afib, AV Node Ablation. DOI 10/28/2023-Lynette. Chronic leads 05/25/2015. Sav remote monitoring. LV lead is a Medtronic lead and therefore the device is Not MRI conditional d/t WeStudy.In products. Dr Jovan Beltran-original device implanter in 2014. Routine VVIR ICD Remote. Transmission attached. Battery status 87%, 7.4-7.8 years remaining battery life to AMMON. Stable Charge time and Shock impedance. Stable lead impedances, pacing, and sensing threshold. Presenting rhythm: AFib/VS - BP Bi-V P-40 %. (5) AT/AF episodes noted. IEGM demonstrates AFib. AFib burden > 99% (0) Ventricular tachy arrhythmias detected. Medication: ASA 81 mg, carvedilol 12.5 mg, Eliquis 2.5 mg, Follow up: Office Pacemaker/ICD scheduled 12/30/24 [place] remote 4 months Capo Wade RN Jarett Yousif MD [facility] PROC EDURES Final Result from Last 3 Months Insurance UHC MEDICARE ADVANTAGE MEDICARE FORMERLY [facility] MEDIC[facility] ADVANTAGE [facility] MEDIC[facility] ADVANTAGE Care Teams Upper Trimmer Relationship Specialty Start Date End Date Ruddy Yang [place] [address] PCP - General Internal Medicine 01/02/21
--- OUTSIDE RECORDS SUMMARY | 2025-01-05 16:43 | XMS_ITS | Data Portability ---
Author Organization [facility], [address] [facility] Neurology ([place]) Address [address] [place] [address] Care Team Providers Care Control Chemist Name Role Phone LYNDSAY BERNARD Primary Care Provider [phone] Assessment Encounter Date Assessment Date Assessment LastModified [...] nortripty line 10 mg capsule 2023 024 [email or web address] [facility] [address], [address], 04/30/2024 14:03:08 Patient TargetsNo targets recorded. Patient InstructionsNo instructions recorded. Reason for Referral None Reported. Results Created Date Observation Date Name Description Value Unit Range Abnormal Flag Note LastModifiedBy Organization Detail LastModifiedTime 12/20/1903/01/2022 imagi ng/di agnos tic resul t No observ ation record ed. [email or web address] Not Available 02:20:37 Result Notes None recorded. 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 Please review this document and add these problems to the patient's chart manually as needed. Problem Notes None recorded. Procedures Surgical History None recorded. Imaging Results Imaging Date Name Status LastModified by Organiz ation Details LastModified Time 2022 imaging/diag nostic result completed [email or web address] Information not available 12/19/2024 02:20:37 Procedure Notes None recorded. Medical Equipment None Reported. Allergies Allergen ID Allergen Name Allergen Category Reaction Reaction Severity Criticality Documentation Date Start Date Code Code System Note Provider Name and Address Organization Details Recorded Time 783469 Oxycontin medicatio n Not available Not available Not available 09/23/20232015 15504 6 RxNorm Comme nt: React ion Date: 30 Nov 2010 ; Not Available [facility] 4 22:09:33 659744 Substance with sulfonami de structure and antibacte rial mechanism of action (substanc e) medicatio n Not available Not available Not available 09/23/20232015 55751 8003 SNOMED Comme nt: React ion Date: 29 May 2011 ; Not Available [facility] 4 22:09:33 Medications Name Sig Start Date Stop Date [...] Address Organization Details Last Updated DateTime 4 [address].7 4 g 24.7 kg/m2 173.99 cm 61 /min 124 mm[Hg] 68 mm[Hg] Tony Fournier [facility] 4 13:10:51 Social History None recorded. Functional Status None recorded. Mental Status None recorded. Family History Nothing Reported. Medical History No medical history recorded. Past Encounters Encounter ID Performer Location Encounter Start Date Encounter Closed Date Diagnosis/Indication Diagnosis SNOMED-CT Code Diagnosis ICD10 Code Diagnosis Note [id number] Mayra Rowell MD [facility] Specialty Neurology ([place]) [address] [place] [address] 04/30/2024 13:03:23 05/03/2024 06:26:37 Idiopathic progressive polyneuropathy 32691193 G60.3 Health Concerns Section Related Observation LastModified by Organization Detai ls LastModified Time None Recorded Concern Status LastModified by Organization Details LastModified Time None Recorded Advance Directives Directive None Recorded Payers Insurance Date Sequence Insurance Name Policy Number Policy De Jesus Covered Member ID De Jesus Member ID Guarantor Name 05/03/2024 1 [facility] (MEDICARE REPLACEMENT/A DVANTAGE - PPO) [id number] Jovan Johnson Clark [id number] Jovan Rodas Notes Date Note Type Note [...] does not use a cane or a wheelchair.SKK Mayra Rowell MD [address], [phone], [facility] 05/01/2024 19:00:20
--- OUTSIDE RECORDS SUMMARY | 2025-01-05 16:43 | XMS_ITS | Encounter Summary ---
Author Organization [facility] Healthcare Address [address] [place] [address] Care Team Providers Care Silk Screen Frame Assembler Name Role Phone Ruddy Yang MD Primary Care Provider + [phone] Encounter Details Date Type Department Care Team (Late st Contact Info) Description 01/04/2025 Telephone [facility] Cardiology [address] [facility] [address] [facility] [address] [place] [address] Jarett Yousif MD [address] [facility] [address] [place] [address] Social History Tobacco Use Types Packs/Day Years Used Date Smoking Tobacco: Former Cigarettes Q uit: 2008 Smokeless Tobacco: Former Chew Quit: 1971 Alcohol [...] on file Legal Sex Male 1:59 AM VENEER TRIMMER Gender Identity Not on file Sexual Orientation Not on file documented as of this encounter Miscellaneous Notes * Telephone Encounter - Vero Adhikari RN - 01/05/2025 9:33 AM CDT Spoke with pts spouse, reviewed responses below from CT and MJF. Spouse verbalizes understanding. * Telephone Encounter - Myrna Godoy RN - 01/04/2025 2:03 PM CDT Noted, will await response from providers if any new needs done. * Telephone Encounter - Ning Johansen RN - 01/04/2025 1:22 PM CDT Sanaz Everett BIV ICD. Dx; CHF, SSS. Afib, AV Node Ablation. DOI 10/28/2023- Lynette. Chronic leads 05/25/2015. [place] remote monitoring. Unscheduled remote due to patient symptoms of sleeping all of time, peeing more often, and his gaitis unsteady gait. Mrs Rodas said he's been sleeping all the time, using his walker now when hewalks, and it takes him a couple minutes to get going ever since I made the changes to his pacemaker. Patient was seen in the clinic for a device check on 12/30/2024. His device was programmed VVIR, rhythm was Atrial Flutter, and he was BIV pacing 38%. I reprogrammed his device to DDDR and turned on Sync AV. Mrs. Rodas sent in a remote transmission. Review of report showed; Presenting rhythm: Aflutter BIV Paced. 8-atrial high rate episodes and AT/AF burden 100% (Not new-This has been ongoing for quite some time). BIVPaced-96%. No ventricular arrhythmias noted. Appropriate device function and lead measurements. Medications; Eliquis, Coreg, ASA 81 mg, Lipitor, Lasix, potassium, amongst others. See scanned report. Sav remote follow-up 04/06/2025. ROV with Dr. Yousif 05/20/2025. Ning Johansen, TRI I spoke with Mrs. Rodas and informed her that his pacemaker defibrillator function is appropriate. The biventricular pacing function went up from 38% to 96% in less than a week. This is an excellent improvement in his device function. I told her I am unable to see anything on his report to explain his symptoms and that I will forward my report to Dr Yousif and Letitia Chappell NP for review. She will receive a call from our office with any new instructions after his data has been reviewed. She verbalized understanding and in the mean time she is going to call his PCP. * Telephone Encounter - Gabrielle Montesinos - 01/04/2025 9:40 AM CDT Pts called requesting to speak to Ning regarding the pacemaker check he had on 12/30. She stated that he is having issues with the pacemaker more than normal. Please advise she would Ning to call her back when available Thank you Contact: documented in this encounter Plan of Treatment Not on file documented as of this encounter Visit Diagnoses Not on filedocumented in this encounter Care Teams Silk Screen Frame Assembler Relationship Specialty Start Date End Date Ruddy Yang MD [address] [place] [address] PCP - General Internal Medicine 01/02/21 documented as of this encounter
--- OUTSIDE RECORDS SUMMARY | 2025-01-05 16:43 | XMS_ITS | Encounter Summary ---
Author Organization [facility] Address [address] [place] [address] Care Team Providers Care Erection Shop Supervisor Name Role Phone Jovan Beltran MD Unavailable UnavailPrashanth Weston MD Unavailable [phone] Mumtaz Ortega MD,PHD Unavailable Parviz Mcbride MD Unavailable Unavailable Deondre Nicolas MD Unavailable [phone] Shaan Whitt MD Unavailable [phone] Myrna Robles FOILING MACHINE ADJUSTER Unavailable Unavailable Vero Victor CHIEF ENGINEERING DIVISION Unavailable [phone] Phillip Hammer DO Primary Care Provider [phone] Ruddy Yang MD Primary Care Provider [phone] Hany Geller DPM Unavailable [phone] Jovan Weathers DPM Unavailable [phone] Sydney Lazaro MD Unavailable [phone] Encounter Details Date Type Department Care Team (Late st Contact Info) Description 11/09/2017 Abstract [facility] [address] [place] [address] , Generic Conversion, Social History Tobacco Use Types Packs/Day Years Used Date Smoking Tobacco: Former Cigarettes Q uit: 04/2008 Smokeless Tobacco: Never Alcohol Use Standard Drinks/Week Comments Yes 0 (1 standard drink = 0.6 oz pur e alcohol) Occasionally Sex and Gender Information Value Date Recorded Sex Assigned at Male 11/05/2024 10:55 AM CDT Legal Sex Male 8:46 PM CDT Gender Identity Not on file Sexual Orientation Not on file Occupation Industry Job Start Date Job End Date Retired Not on file Not on file Not on file documented as of this encounter Plan of Treatment Upcoming Encounters Date Type Department Care Team (Late st Contact Info) Description 01/07/2025 11:[address] 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 documented as of this encounter Care Teams Erection Shop Supervisor Relationship Specialty Start Date End Date Phillip Hammer DO [address] [place] [address] PCP - General FAMILY PRACTICE 01/22/20 02/29/20 Ruddy Yang MD [address] [place] [address] PCP - General INTERNAL MEDICINE 03/01/20 Jovan Beltran MD [place] Probation Manager CLINICAL CARDIAC ELECTROPHYSIOLOGY 04/04/17 Prashanth Koch MD [place] Probation Manager CARDIOVASCULAR DISEASE 08/23/17 Mumtaz Ortega MD,PHD [place] Probation Manager CARDIOTHORACIC SURGERY 09/13/17 01/21/20 Parviz Artis MD CRITICAL CARE MEDICINE 10/18/17 01/21/20 Deondre Nicolas MD [address] [place] [address] NEUROLOGY 11/12/17 03/29/20 Shaan Whitt MD [address] [place], [place] [phone] UROLOGY 02/07/18 01/21/20 Myrna Robles, FOILING MACHINE ADJUSTER [address] [place] [address] Referring Physician CARDIOVASCULAR DISEASE 05/01/18 Vero Victor, CHIEF ENGINEERING DIVISION [address] [place], [place] [id number] FAMILY PRACTICE 09/30/18 Hany Geller DPM [facility] [place] [address] Consulting Physician PODIATRY/SURGERY 12/06/22 12/07/23 Jovan Weathers DPM [facility]5 [place] [address] Consulting Physician PODIATRY 02/28/23 02/29/24 Sydney Lazaro MD [address] [place] [phone] Internal Medicine - Infectious Disease 02/28/23 02/29/24 documented as of this encounter
--- OUTSIDE RECORDS SUMMARY | 2025-01-05 16:43 | XMS_ITS | Encounter Summary ---
Author Organization [facility] Address [facility] [place] [address] Care Team Providers Care Wind Turbine Engineer Name Role Phone Jovan Beltran MD Unavailable UnavailPrashanth Weston MD Unavailable [phone] Mumtaz Ortega MD,PHD Unavailable Parviz Mcbride MD Unavailable Unavailable Deondre Nicolas MD Unavailable [phone] Shaan Whitt MD Unavailable [phone] Myrna Robles VP TREASURER Unavailable Unavailable Vero Victor SOLAR SALES AMBASSADOR Unavailable [phone] Phillip Hammer DO Primary Care Provider [phone] Ruddy Yang MD Primary Care Provider [phone] Hany Geller DPM Unavailable [phone] Jovan Weathers DPM Unavailable [phone] Sydney Lazaro MD Unavailable [phone] Encounter Details Date Type Department Care Team (Late st Contact Info) Description 07/26/2018 Abstract [facility] 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 documented as of this encounter Care Teams Wind Turbine Engineer Relationship Specialty Start Date End Date Phillip Hammer DO [address] [place], [place] [id number] PCP - General FAMILY PRACTICE 01/22/20 02/29/20 Ruddy Yang MD [address] [place] [address] PCP - General INTERNAL MEDICINE 03/01/20 Jovan Beltran MD [place] [employer] Wireless Manager CLINICAL CARDIAC ELECTROPHYSIOLOGY 04/04/17 Prashanth Koch MD [employer] Wireless Manager CARDIOVASCULAR DISEASE 08/23/17 Mumtaz Ortega MD,PHD [place] [employer] Wireless Manager CARDIOTHORACIC SURGERY 09/13/17 01/21/20 Parviz Artis MD CRITICAL CARE MEDICINE 10/18/17 01/21/20 Deondre Nicolas MD [address] [place] [address] NEUROLOGY 11/12/17 03/29/20 Shaan Whitt MD [address] [place] [address] UROLOGY 02/07/18 01/21/20 Myrna Robles, VP TREASURER [address] [place] [address] Referring Physician CARDIOVASCULAR DISEASE 05/01/18 Vero Victor, SOLAR SALES AMBASSADOR [address] [place] [address] FAMILY PRACTICE 09/30/18 Hany Geller DPM [address] [place] [address] Consulting Physician PODIATRY/SURGERY 12/06/22 12/07/23 Jovan Weathers DPM [facility] [place] [address] Consulting Physician PODIATRY 02/28/23 02/29/24 Sydney Lazaro MD [address] [place] [phone] Internal Medicine - Infectious Disease 02/28/23 02/29/24 documented as of this encounter
--- OUTSIDE RECORDS SUMMARY | 2025-01-05 16:43 | XMS_ITS | Clinical Summary ---
Author Organization [facility] [address] [facility] [address] Address [address] [place] [address] Care Team Providers Care Solar Pv Installer Name Role Phone Ruddy Yang MD Primary Care Provider [phone] Allergies Active Allergy Reactions Criticality Noted Date [...] 1 tablet/capsule (10 mEq total) by mouth manager it security before breakfast 4 Active Active Problems Problem Noted Date Diagnosed Date Elective replacement of impl antable cardioverter-defibrillator (ICD) battery required 10/01/2023 Sensorineural hearing loss (SNHL) of both ears 1 09/02/2022 Assessment & Plan (07/03/2023 10:35 AM FIBER OPTICS ENGINEER): Hearing test Flonase 2 sprays into each [...] 07/03/2023 Assessment & Plan (07/03/2023 10:35 AM FIBER OPTICS ENGINEER): Hearing test Flonase 2 sprays into each [...] (07/11/2022): Added automatically from request for surgery [id number] Pain associated with wound 06/28/2022 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 Dx; CHF, SSS. Afib, AV Node Ablation. DOI 10/28/2023- Lynette. Chronic leads 05/25/2015. Sav remote monitoring. LV lead is a Medtronic lead and therefore the device is Not MRI conditional d/t YouAppi products. Dr Jovan Beltran-original device implanter in 2014. Osteoarthritis of lumbar spine 08/10/2015 Hypertension 01/29/2014 Overview (11/30/2016): High blood pressure Chronic coronary artery disease 01/29/2014 Overview (11/30/2016): Coronary artery disease Chronic obstructive pulmonary disease 01/29/2014 Overview (11/30/2016): COPD Hypercholesterolemia 01/29/2014 Overview (11/30/2016): High cholesterol Lumbago 02/04/2009 Encounters Date Type Department Care Team Description 01/04/2025 8:00 AM CDT Ancillary Procedure [facility] [address] [place] [address] Suite [facility] [place] [phone] ICD (implantable cardioverter-defibrilla tor) in place; Permanent atrial fibrillation (HCC); 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; S/P AV josué ablation; Congestive heart failure, unspecified HF chronicity, unspecified heart failure type (HCC) 01/04/2025 Telephone [facility] [address] [place] [phone] Jarett Yousif MD 12/30/2024 10:00 AM CDT Ancillary Procedure [facility] [address] [place] [phone] Longstanding persistent atrial fibrillation (HCC); SSS (sick sinus syndrome) (HCC); Congestive heart failure, unspecified HF chronicity, unspecified heart failure type (HCC); 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; History of atrioventricular josué ablation 12/30/2024 Orders Only [facility] [address] [place] [address] Suite [facility] [place] [address] Jarett Yousif MD ICD (implantable cardioverter-defibrilla tor) in place (Primary Dx); Permanent atrial fibrillation (HCC); 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; S/P AV josué ablation; Congestive heart failure, unspecified HF chronicity, unspecified heart failure type (HCC) 12/29/2024 Telephone [facility] [address] [place] [address] [address] [facility] [place] [address] Jarett Yousif MD 12/04/2024 11:30 AM CDT Office Visit [facility] [address] [place] [address] Letitia Kumar NP Coronary artery disease of [place] heart with stable angina pectoris, unspecified vessel or lesion type (Primary Dx); 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; Permanent atrial fibrillation (HCC); Chronic anticoagulation 11/24/2024 8:45 AM CDT Ancillary Procedure [facility] [address] [facility] [address] [place] [phone] 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 (Primary Dx); Cardiomyopathy, unspecified type (HCC); SSS (sick sinus syndrome) (HCC); Permanent atrial fibrillation (HCC); Congestive heart failure, unspecified HF chronicity, unspecified heart failure type (HCC) 11/09/2024 8:45 AM CDT Office Visit [facility] [address] [facility] [address] [place] [phone] Jarett Yousif MD 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 (Primary Dx); Hx of CABG; Permanent atrial fibrillation (HCC); S/P TAVR (transcatheter aortic valve replacement); History of coronary artery stent placement from Last 3 Months Immunizations Immunization Administration Dates Next Due Influenza, [...] Conv) Heart attack (HCC) CHF (congestive heart failure) (HCC) COPD (chronic obstructive pu lmonary disease) (HCC) Anemia Arthritis Peripheral artery disease Stented coronary artery Family History Medical History [...] on file Legal Sex Male 1:59 AM FIBER OPTICS ENGINEER Gender Identity Not on file Sexual Orientation Not on file Obstetrics History Last Filed Vital Signs Vital Sign Reading Time Taken Comments Blood Pressure 122/70 12/04/2024 11:20 AM CDT Pulse 64 12/04/2024 11:20 AM CDT Temperature 36.1 C (97 F) 10/28/2023 1:26 PM FIBER OPTICS ENGINEER Respiratory Rate 20 10/28/2023 2:35 PM FIBER OPTICS ENGINEER Oxygen Saturation 97% 12/04/2024 11:20 AM CDT Inhaled Oxygen Concentration - - Weight 77.1 kg (170 lb) 12/04/2024 11:20 AM CDT Height 172.7 cm (5' 8 ) 12/04/2024 11:20 AM CDT Body Mass Index 25.85 12/04/2024 11:20 AM CDT Plan of Treatment Health Maintenance Due Date Last Done Comments Depression Screening 1941 Hepatitis B Screening 1959 Pneumococcal vaccine 65+ (1 of 2 - PCV) 1960 Zoster Vaccine (1 of 2) 1991 Well Visit 65+ 2006 Fall Risk Assessment 10/27/2024 10/28/2023 Influenza Vaccine (Season Ended) 2025 05/21/2022, 06/21/2020, 04/26/2020, Additional history exists DTaP/Tdap/Td Vaccine (2 - Td or Tdap) 06/28/2030 06/28/2020 Medical Devices Implanted Type Area Tare Weigher Device Identifier Shelf Expiration Date Model / Serial / Lot Icd ICD Heart Pacemaker Pacemaker Heart Description:PACEMAKER/ICD Stent Implanted:Qty: 2 Stent Heart Yo Vascular Defib Cardiac [id number] [place] Hf Df4 Is-4 Is-1 Cnctr [id number] - [id number] - [id number] Implanted:Qty: 1 on 10/28/2023 by Eric Ojeda MD at [facility] Vascular 08/25/2025 [id number] / [id number] / Procedures Procedure Name Priority Date/Time Associated Diagnosis Comments DEVICE CHECK - REMOTE Routine 11/24/2024 10:05 AM CDT Cardiomyopathy, unspecified type (HCC) SSS (sick sinus syndrome) (HCC) Permanent atrial fibrillation (HCC) from Last 3 Months Results * DEVICE CHECK - REMOTE (11/24/2024 10:05 AM CDT) Anatomical Region Laterality Modality Other Narrative 12/03/2024 8:25 AM CDT [employer] [place] BIV ICD. Dx; CHF, SSS. Afib, AV Node Ablation. DOI 10/28/2023-Lynette. Chronic leads 05/25/2015. Cherrish remote monitoring. LV lead is a Medtronic lead and therefore the device is Not MRI conditional d/t cross company products. Dr Jovan Beltran-original device implanter in 2015. Routine VVIR ICD Remote. Transmission attached. Battery [...] mg, Follow up: Office Pacemaker/ICD scheduled 12/30/24 Sav remote 4 months Capo Wade RN Jarett Yousif MD CV CARDIAC SERVICES PROC EDURES Final Result from Last 3 Months Insurance UHC MEDICARE ADVANTAGE [facility] MEDICARE Address: [address] [address] MEDICARE [facility] MEDICARE ADVANTAGE [facility] MEDICARE Address: [address] [address] [place] [address] [facility] MEDICARE ADVANTAGE Care Teams Solar Pv Installer Relationship Specialty Start Date End Date Ruddy aYng MD [address] [place] [address] PCP - General Internal Medicine 01/02/21
--- OUTSIDE RECORDS SUMMARY | 2025-01-05 16:43 | XMS_ITS | Encounter Summary ---
Author Organization [facility] Address [facility] [place] [address] Care Team Providers Care Weight Recorder Name Role Phone Jovan Beltran MD Unavailable UnavailPrashanth Weston MD Unavailable [phone] Mumtaz Ortega MD,PHD Unavailable Parviz Mcbride MD Unavailable Unavailable Deondre Nicolas MD Unavailable [phone] Shaan Whitt MD Unavailable [phone] Myrna Robles ACUPRESSURIST Unavailable Unavailable Vero Victor HAMMER RUNNER Unavailable [phone] Phillip Hammer DO Primary Care Provider [phone] Ruddy Yang MD Primary Care Provider [phone] Hany Geller DPM Unavailable [phone] Jovan Weathers DPM Unavailable [phone] Sydney Lazaro MD Unavailable [phone] Encounter Details Date Type Department Care Team (Late st Contact Info) Description 01/31/2019 Abstract [facility] [address] [place] [address] , Generic Conversion, Social History Tobacco Use [...] Info) Description 01/07/2025 11:00 AM CDT Appointment [facility] [address] [place] [address] Raisa Shearer, HAMMER RUNNER [address] [place] [address] documented as of this encounter Visit Diagnoses Not on filedocumented in this encounter Additional Health Concerns Infection Onset Date Last Indicated Resolved Time 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 documented as of this encounter Care Teams Weight Recorder Relationship Specialty Start Date End Date Phillip Hammer DO [address] [place] [address] PCP - General FAMILY PRACTICE 01/22/20 02/29/20 Ruddy Yang MD [address] [place] [address] PCP - General INTERNAL MEDICINE 03/01/20 Jovan Beltran MD [place] Damper Maker CLINICAL CARDIAC ELECTROPHYSIOLOGY 04/04/17 Prashanth Koch MD [place] Damper Maker CARDIOVASCULAR DISEASE 08/23/17 Mumtaz Ortega MD,PHD [place] Damper Maker CARDIOTHORACIC SURGERY 09/13/17 01/21/20 Parviz Artis MD CRITICAL CARE MEDICINE 10/18/17 01/21/20 Deondre Nicolas MD [address] [place] [address] NEUROLOGY 11/12/17 03/29/20 Shaan Whitt MD [address] [place] [address] UROLOGY 02/07/18 01/21/20 Myrna Robles, ACUPRESSURIST [address] [place] [address] Referring Physician CARDIOVASCULAR DISEASE 05/01/18 Vero Victor, HAMMER RUNNER [address] [place] [address] FAMILY PRACTICE 09/30/18 Hany Geller DPM [address] [place] [address] Consulting Physician PODIATRY/SURGERY 12/06/22 12/07/23 Jovan Weathers DPM [facility] [place] [address] Consulting Physician PODIATRY 02/28/23 02/29/24 Sydney Lazaro MD [address] [place] [phone] Internal Medicine - Infectious Disease 02/28/23 02/29/24 documented as of this encounter
--- OUTSIDE RECORDS SUMMARY | 2025-01-05 16:43 | XMS_ITS | Clinical Summary ---
Author Organization [facility] Address [address] [facility] [address] Phone Care Team Providers Care Flatbed Driver Name Role Phone Unavailable Primary Care Provider [...] daily. Active fluticasone propionate (FLONASE) 50 mcg/spray [place], Suspension nasal inhaler Administer 2 Sprays in each nostril daily. Active ipratropium bromide (ATROVENT) 42 mcg (0.06 %) [place], Non-Aerosol Administer 2 Sprays in each nostril [...] on file Legal Sex Male 11:34 AM SURGERY SPECIALIST Gender Identity Not on file Sexual Orientation Not on file Last Filed Vital Signs Vital Sign Reading Time Taken Comments Blood Pressure 140/77 10/22/2022 10:05 AM SURGERY SPECIALIST Pulse 70 10/22/2022 10:01 AM SURGERY SPECIALIST Temperature 35.7 C (96.3 F) 10/22/2022 10:01 AM SURGERY SPECIALIST Respiratory Rate 10 10/22/2022 10:0 1 AM SURGERY SPECIALIST Oxygen Saturation 98% 10/22/2022 10: 01 AM SURGERY SPECIALIST Inhaled Oxygen Concentration - - Weight 81.5 kg (179 lb 11.2 oz) 023 10:01 AM SURGERY SPECIALIST Height 172.7 cm (5' 8 ) 03/21/2022 11:1 3 AM CDT Body Mass Index 27.32 03/21/2022 11:13 AM CDT Plan of Treatment Health Maintenance Due Date Last Done Comments DTAP/TDAP/TD VACCINES (1 - Tdap) 1960 PNEUMOCOCCAL VACCINE 50+ YEA RS (1 of 2 - PCV) 1960 ZOSTER VACCINE (1 of 2) 1991 RSV VACCINE (60+ or ) (1 - 1-dose 75+ series) 2016 INFLUENZA VACCINE (#1) 2024 2, 06/21/2020, 05/26/2019, Additional history exists COLORECTAL SCREENING Discontinued 07/05/2020 Colorectal Cancer Screening Discontinued FIT-DNA Q 3 years Discontinued FIT/FOBT Q 1 year Discontinued Flex Sig/CT Colonography Q 5 years Discontinued Insurance [place] [id number]
--- OUTSIDE RECORDS SUMMARY | 2025-01-05 16:43 | XMS_ITS | Encounter Summary ---
Author Organization [facility] Address [address] [place] [address] Care Team Providers Care V Belt Skiver Name Role Phone Jovan Beltran MD Unavailable UnavailPrashanth Weston MD Unavailable [phone] Mumtaz Ortega MD,PHD Unavailable Parviz Mcbride MD Unavailable Unavailable Deondre Nicolas MD Unavailable [phone] Shaan Whitt MD Unavailable [phone] Myrna Robles GROUNDS RESTORATION SPECIALIST Unavailable Unavailable Vero Victor SQUARE DANCE CALLER Unavailable [phone] Phillip Hammer DO Primary Care Provider [phone] Ruddy Yang MD Primary Care Provider [phone] Hany Geller DPM Unavailable [phone] Jovan Weathers DPM Unavailable [phone] Sydney Lazaro MD Unavailable [phone] Encounter Details Date Type Department Care Team (Late st Contact Info) Description 08/05/2018 Abstract [facility] [address] [address] Deondre Nicolas MD [address] [place] [address] [id number] Social History Tobacco Use Types Packs/Day Years [...] Info) Description 01/07/2025 11:00 AM CDT Appointment [facility] [address] [place] [address] Raisa Shearer, SQUARE DANCE CALLER [address] [place] [address] documented as of this encounter Visit Diagnoses Not on filedocumented in this encounter Additional Health Concerns Infection Onset Date Last Indicated Resolved Time 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 documented as of this encounter Care Teams V Belt Skiver Relationship Specialty Start Date End Date Phillip Hammer DO [address] [place], [place] [id number] PCP - General FAMILY PRACTICE 01/22/20 02/29/20 Ruddy Yang MD [address] [place] [address] PCP - General INTERNAL MEDICINE 03/01/20 Jovan Beltran MD [place] Senior Advisor CLINICAL CARDIAC ELECTROPHYSIOLOGY 04/04/17 Prashanth Koch MD [place] Senior Advisor CARDIOVASCULAR DISEASE 08/23/17 Mumtaz Ortega MD,PHD [place] Senior Advisor CARDIOTHORACIC SURGERY 09/13/17 01/21/20 Parviz Artis MD CRITICAL CARE MEDICINE 10/18/17 01/21/20 Deondre Nicolas MD [address] [place] [address] NEUROLOGY 11/12/17 03/29/20 Shaan Whitt MD [address] [place] [address] UROLOGY 02/07/18 01/21/20 Myrna Robles, GROUNDS RESTORATION SPECIALIST [address] [place] [address] Referring Physician CARDIOVASCULAR DISEASE 05/01/18 Vero Victor, SQUARE DANCE CALLER [address] [place] [address] FAMILY PRACTICE 09/30/18 Hany Geller DPM [address] [place] [address] Consulting Physician PODIATRY/SURGERY 12/06/22 12/07/23 Jovan Weathers DPM [facility] [place] [address] Consulting Physician PODIATRY 02/28/23 02/29/24 Sydney Lazaro MD [address] [place] [phone] Internal Medicine - Infectious Disease 02/28/23 02/29/24 documented as of this encounter
--- OUTSIDE RECORDS SUMMARY | 2025-01-05 16:44 | XMS_ITS | Clinical Summary ---
Author Organization [facility] Address [address] [place] [address] Care Team Providers Care Architecture Instructor Name Role Phone Elida Beltran MD Unavailable UnavailPrashanth Weston MD Unavailable [phone] Myrna Robles NP Unavailable Unavailable Vero Victor COKE HANDLING SUPERVISOR Unavailable [phone] Ruddy Yang MD Primary Care Provider [phone] Allergies Active Allergy Reactions Criticality Noted Date [...] total) by mouth daily. 4 Active Multiple Vitamins-Minera ls (MULTIVITAMIN MEN OR) Take by mouth daily. [...] total) by mouth 2 (two) times daily. am 7 Active CARVEDILOL 12.5 MG tabletIndicatio ns:Essential hypertension,No nrheumatic aortic valve stenosis,Acute on chronic diastolic heart failure (CMS/HCC HHS/HCC) TAKE 1 TABLET BY MOUTH TWICE DAILY WITH MEALS 180 tablet 3 0 Active Additional Information Patient taking differently: 6.25 mg 2 times daily, Reported on 11/19/2024 finasteride 5 MG tablet Use as directed 1 tablet (5 mg total) in the mouth or throat nightly at bedtime. 0 Active PREGABALIN 100 MG capsuleIndicati ons:Neuropathy, peripheral axonal TAKE 1 CAPSULE BY MOUTH THREE TIMES DAILY 90 capsule 0 Active Additional Information Patient taking differently: 50 mg Oral 2 times daily, TAKE 1 CAPSULE BY MOUTH THREE TIMES DAILY, Reported on 11/19/2024 potassium chloride CR (KLOR-CON M) 20 MEQ [...] 60 tablet 1 2 Active apixaban (ELIQUIS) 2.5 MG tablet Take 1 tablet (2.5 mg total) by mouth 2 (two) times daily. Active ceFEPIme (MAXIPIME) 2 GM/100ML IV SOLN Inject 100 mLs (2 g total) into the vein every 12 (twelve) hours. Active vitamin D3, cholecalciferol , 125 mcg capsule Take 1 capsule (125 mcg total) by mouth daily. 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 Stroke ([facility]) 11/01/2017 Acute on chronic diastolic heart failure ([facility]) 10/08/2017 Stage 3 chronic kidney disease 10/08/2017 Acute right MCA stroke ([facility]) 018 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 Nonrheumatic aortic valve stenosis 07/11/2017 Abdominal aortic aneurysm (AAA) without rupture 07/11/2017 Persistent atrial fibrillation ([facility]) 04/04/2017 Pacemaker 04/04/2017 Osteoarthritis of lumbar spine 08/10/2015 Chronic obstructive pulmonary disease ([facility]) 01/29/2014 Overview (12/31/2018): Overview: COPD S/P AAA (abdominal aortic aneurysm) repair PVD (peripheral vascular disease) Hypertension Hyperlipidemia Carotid stenosis CAD (coronary artery disease) Orthostatic hypotension Overview (08/23/2017): Near syncope CKD (chronic kidney disease) stage 3, GFR 30-59 ml/min Hypokalemia Paroxysmal atrial fibrillation ([facility]) Atrial fibrillation, persistent ([facility] ) Chronic anticoagulation Pressure ulcer of other site, stage 2 Resolved Problems Problem Noted Date Diagnosed Date Resolved Date ICD (implantable cardioverte r-defibrillator) in place 04/04/2017 04/04/2017 Paroxysmal atrial fibrillati on ([facility]) 02/10/2018 Paroxysmal atrial fibrillati on ([facility]) 05/29/2018 Atrial fibrillation, persist ent ([facility]) 05/29/2018 Encounters Date Type Department Care Team Description 12/31/2024 12:52 PM CDT - 12/31/2024 11:59 PM CDT Hospital Encounter [facility] [address] [place] [address] [address] Raisa Shearer, CAROLYN Discharge Disposition: Home or Self Care (Routine Discharge) 12/31/2024 Travel 12/24/2024 Travel 12/17/2024 10:58 AM CDT - 12/17/2024 11:59 PM CDT Hospital Encounter [facility] [address] [place] [address] [address] Raisa Shearer, CAROLYN Discharge Disposition: Home or Self Care (Routine Discharge) 12/17/2024 Travel 12/09/2024 10:56 AM CDT - 12/09/2024 11:59 PM CDT Hospital Encounter [facility] [address] [place] [address] [address] Raisa Shearer, CAROLYN Discharge Disposition: Home or Self Care (Routine Discharge) 12/09/2024 Travel 12/03/2024 10:30 AM CDT - 12/03/2024 11:59 PM CDT Hospital Encounter [facility] [address] [place] [address] [address] Raisa Shearer, CAROLYN Discharge Disposition: Home or Self Care (Routine Discharge) 12/03/2024 Travel 11/19/2024 2:30 PM CDT - 11/19/2024 11:59 PM CDT Hospital Encounter [facility] [address] [place] [address] [address] Raisa Shearer, CAROLYN Discharge Disposition: Home or Self Care (Routine Discharge) 11/19/2024 10:14 AM CDT - 11/19/2024 2:00 PM CDT Emergency [facility] [address] [place] [address] [address] Tio Mckenna MD Chest Pain Discharge Disposition: Home or Self Care (Routine Discharge) 11/19/2024 Hospital Orders Only [facility] [address] [place] [address] [address] Raisa Shearer, COKE HANDLING SUPERVISOR 11/19/2024 Travel 11/09/2024 Orders Only [facility] [address] [place] [address] Raisa Shearer FNP 11/05/2024 10:15 AM CDT - 11/05/2024 11:59 PM CDT Hospital Encounter [facility] [address] [place] [address] Raisa Shearer FNP Discharge Disposition: Home or Self Care (Routine Discharge) 11/05/2024 Travel from Last 3 Months Immunizations Immunization Administration Dates Next Due Fluzone 6 Months+ [...] Sign Reading Time Taken Comments Blood Pressure 145/87 11/19/2024 1:30 PM CDT Pulse 70 11/19/2024 1:30 PM CDT Temperature 35.7 C (96.2 F) 11/19/2024 10:25 AM CDT Respiratory Rate 18 11/19/2024 1:30 PM CDT Oxygen Saturation 99% 11/19/2024 1:30 PM CDT Inhaled Oxygen Concentration - - Weight 74.8 kg (165 lb) 11/19/2024 10:25 AM CDT Height 172.7 cm (5' 8 ) 11/19/2024 10:25 AM CDT Body Mass Index 25.09 11/19/2024 10:25 AM CDT Plan of Treatment Upcoming Encounters Date Type Department Care Team (Late st Contact Info) Description 01/07/2025 11:[address] [facility] [address] [place] [address] Manfred Raisa Stacie, COKE HANDLING SUPERVISOR [address] [place], [place] [address] Health Maintenance Due Date Last Done Comments Pneumococcal Vaccine: 50+ Years (1 of 2 - PCV) 1960 Zoster Vaccines (1 of 2) 1991 Annual Medicare Wellness Visit 2006 RSV Immunization or 60+ Years (1 - 1-dose 75+ series) 2016 ASCVD LDL 10/18/2018 10/18/2017, 10/03/2017, 04/04/2015 COVID-19 Vaccine (3 - 2023-2 5 season) 2024 11/09/2020, 10/19/2020 PHQ-2 ([facility] [place]) 08/26/2024 DTaP, Tdap and Td Vaccines ( 2 - Td or Tdap) 06/28/2030 06/28/2020 Meningococcal B Vaccine Aged Out No l onger eligible based on patient's age to complete this topic Meningococcal Vaccine Aged Out No kala sandra eligible based on patient's age to complete this topic RSV Immunizations Under 20 Months Aged Out No longer eligible b ased on patient's age to complete this topic Goals Goal Patient Goal Type Associated Problems Recent Progress Patient-Stated? Author Safety Patient/family will have appropriate support at home upon discharge Lifestyle No Beryl Freeman, casino gaming inspector Procedure Name Priority Date/Time Associated Diagnosis Comments TROPONIN, QUANT TIMED 11/19/2024 12:35 PM CDT XR CHEST PORTABLE STAT 11/19/2024 10: 44 AM CDT PRO-BRAIN NATRIURETIC PEPTIDE STAT 11/19/2024 10:35 AM CDT TROPONIN, QUANT STAT 11/19/2024 10:35 AM CDT COMPREHENSIVE METABOLIC PANEL STAT 11/19/2024 10:35 AM CDT CBC W/DIFF AUTOMATED STAT 11/19/2024 10:35 AM CDT ECG 12-LEAD Routine 11/19/2024 10:19 AM CDT CULTURE, WOUND, W/GRAM STAIN Routine 11/05/2024 10:47 AM CDT Pressure ulcer of other site, stage 2 (CMS/HCC) LIPID PANEL TIMED 10/18/2017 2:35 AM TREASURY ASSISTANT from Last 3 Months or Most Recently Relevant to Health Maintenance Results * TROPONIN, QUANT (11/19/2024 12:35 PM CDT) Only the most recent of2 resultswithin the time period is included. TROPONIN I HIGH SENSITIVITY 26 0 - 76 ng/L 11/19/2024 1:13 PM CDT [facility] 11/19/2024 12:3 5 PM CDT us Tio Mckenna MD LABORATORY Final Result Performing Organization Address City/State/[facility] Co de Phone Number [facility] [address] [place] [address], * XR CHEST PORTABLE (11/19/2024 10:44 AM CDT) Anatomical Region Laterality Modality Chest Radiographic Jewell ging 11/19/2024 10:4 6 AM CDT Impressions 11/19/2024 10:50 AM CDT IMPRESSION: 1. No acute cardiopulmonary process identified. 2. Stable cardiomegaly. 3. Status post PICC line removal. Ordered By: TIO MCKENNA Interpreted By: Kevin Malin MD, 11/19/2024 10:46 AM Narrative 11/19/2024 10:50 AM CDT [address] [place] [address] Examination: Portable chest. Exam time: 1036 hours. Clinical history: Chest pain. Comparison: 2023. Technique: AP upright view. Findings: Allowing for differences in projection and rotation, the cardiomediastinal silhouette is stable. The heart remains mildly enlarged. Pulmonary vascularity is within normal limits. Changes from median sternotomy are again evident. TAVR prosthesis remains in place with stable orientation. Left subclavian transvenous pacemaker remains in place with stable positioning of its leads. The right-sided PICC line has been removed. No acute infiltrates or effusions are identified. The visualized bony thorax is stable. Procedure Note Kevin Malin MD - 11/19/[address] [place] [address] Examination: Portable chest. Exam time: 1036 hours. Clinical history: Chest pain. Comparison: 2023. Technique: AP upright view. Findings: Allowing for differences in projection and rotation, thecardiomediastinal silhouette is stable. The heart remains mildly enlarged.Pulmonary vascularity is within normal limits. Changes from mediansternotomy are again evident. TAVR prosthesis remains in place with stableorientation. Left subclavian transvenous pacemaker remains in place withstable positioning of its leads. The right-sided PICC line has beenremoved. No acute infiltrates or effusions are identified. The visualizedbony thorax is stable. IMPRESSION: 1. No acute cardiopulmonary process identified. 2. Stable cardiomegaly. 3. Status post PICC line removal. Ordered By: TIO MCKENNA Interpreted By: Kevin Malin MD, 11/19/2024 10:46 AM us Tio Mckenna MD GENERAL IMAGING Final Result * (ABNORMAL) PRO-BRAIN NATRIURETIC PEPTIDE (11/19/2024 10:35 AM CDT) PRO-B TYPE NATRIURETIC PEPTIDE 1,775(H) <450 PG/ML 11/19/2024 11:11 AM CDT [facility] Comment: CUT POINTS ESTABLISHED BY INTERNATIONAL COLLABORATIVE ON NT PROBNP (ICON) STUDY (2006). AGE INDEPENDENT: <300 PG/ML HAS A 99% NEGATIVE PREDICTIVE VALUE FOR EXCLUDING ACUTE CHF <50 YEARS: >450 PG/ML IS CONSISTENT WITH ACUTE CHF 50-75 YEARS: >900 PG/ML IS CONSISTENT WITH ACUTE CHF >75 YEARS: >1800 PG/ML IS CONSISTENT WITH ACUTE CHF IN PATIENTS WITH RENAL INSUFFICIENCY (GFR <60), >1200 PG/ML YIELDS A DIAGNOSTIC SENSITIVITY AND SPECIFICITY OF 89% AND 72% FOR ACUTE CHF. 11/19/2024 10:3 5 AM CDT us Tio Mckenna MD LABORATORY Final Result [facility] [address] [place] [address], * (ABNORMAL) COMPREHENSIVE METABOLIC PANEL (11/19/2024 10:35 AM CDT) SODIUM S/P/B 142 136 - 145 MMOL/L 11/19/2024 11:11 AM CDT [facility] POTASSIUM S/P/B 3.8 3.5 - 5.1 MMOL/L 11/19/2024 11:11 AM CDT [facility] CHLORIDE S/P/B 102 98 - 107 MMOL/L 11/19/2024 11:11 AM CDT [facility] CO2 33.2(H) 21.0 - 32.0 MMOL/L 11/19/2024 11:11 AM CDT [facility] GLUCOSE 127(H) 70 - 99 MG/DL 11/19/2024 11:11 AM CDT [facility] Comment: FASTING GLUCOSE 100 TO 125 MG/DL IS CONSISTENT WITH IMPAIRED FASTING GLUCOSE. FASTING GLUCOSE >125 MG/DL IS CONSISTENT WITH DIABETES. RANDOM GLUCOSE >200 MG/DL WITH HYPERGLYCEMIC SYMPTOMS IS CONSISTENT WITH DIABETES. PER ADA GUIDELINES BUN 39(H) 6 - 24 MG/DL 11/19/2024 11:11 AM CDT [facility] CREATININE S/P/B 1.73(H) 0.70 - 1.30 MG/DL 11/19/2024 11:11 AM CDT [facility] CALCIUM S/P/B 9.3 8.4 - 10.5 MG/DL 11/19/2024 11:11 AM [facility] BILIRUBIN TOTAL S/P/B 1.0 0.2 - 1.0 MG/DL 11/19/2024 11:11 AM [facility] Comment: THIS ASSAY IS NOT RECOMMENDED FOR PATIENTS UNDERGOING TREATMENT WITH ELTROMBOPAG DUE TO THE POTENTIAL FOR FALSELY ELEVATED RESULTS. ALKALINE PHOSPHATASE S/P/B 46 45 - 115 U/L 11/19/2024 11:11 AM T [facility] AST 15 15 - 37 U/L 11/19/2024 11:11 AM [facility] ALT 16 16 - 63 U/L 11/19/2024 11:11 AM [facility] TOTAL PROTEIN S/P/B 7.6 6.4 - 8.2 G/DL 11/19/2024 11:11 AM [facility] ALBUMIN S/P/B 3.8 3.4 - 5.0 G/DL 11/19/2024 11:11 AM [facility] ANION GAP 6.8 5.0 - 15.0 MMOL/L 11/19/2024 11:11 AM [facility] OSMOLALITY (CALC) 305 MOSM/KG 025 11:11 AM [facility] Comment:REFERENCE RANGE NOT ESTABLISHED GFR ESTIMATE 39(L) >89 ML/MIN/1. 73 M2 11/19/2024 11:11 AM [facility] GFR NOTES GFR REFERENCE S: 11/19/2024 11:11 AM [facility] Comment: THE ESTIMATED GFR IS CALCULATED USING THE 2020 CKD-EPI EQUATION. THE FOLLOWING CATEGORIES FOR GRADING RENAL FUNCTION ARE RECOMMENDED BY THE INTERNATIONAL SOCIETY OF NEPHROLOGY (KDIGO 2012 CLINICAL PRACTICE GUIDELINE). G1,NORMAL OR HIGH: >89 ml/min/1.73 m2 G2,MILDLY DECREASED: 60-89 ml/min/1.73 m2 G3A,MILDLY TO MODERATELY DECREASED: 45-59 ml/min/1.73 m2 G3B,MODERATELY TO SEVERELY DECREASED: 30-44 ml/min/1.73 m2 G4,SEVERELY DECREASED: 15-29 ml/min/1.73 m2 G5,KIDNEY FAILURE: <15 ml/min/1.73 m2 11/19/2024 10:3 5 AM CDT us Tio Mckenna MD LABORATORY Final Result [facility] [address] [place] [address], * (ABNORMAL) CBC W/DIFF AUTOMATED (11/19/2024 10:35 AM CDT) WBC 4.81 4.00 - 10.80 x10'3/uL 11/19/2024 10:43 AM CDT [facility] RBC 3.63(L) 4.50 - 6.10 x10'6/uL 11/19/2024 10:43 AM CDT [facility] HGB 12.3(L) 13.0 - 18.0 G/DL 11/19/2024 10:43 AM CDT [facility] HCT 36.5(L) 37.0 - 52.0 % 11/19/2024 10:43 AM CDT [facility] MCV 100.6(H) 78.0 - 100.0 FL 11/19/2024 10:43 AM CDT [facility] MCH 33.9(H) 27.0 - 31.0 PG 11/19/2024 10:43 AM CDT [facility] MCHC 33.7 33.0 - 36.0 G/DL 11/19/2024 10:43 AM CDT [facility] RDW 15.7(H) 11.5 - 14.5 % 11/19/2024 10:43 AM CDT [facility] PLT 111(L) 150 - 350 x10'3/uL 11/19/2024 10:43 AM CDT [facility] MPV 10.7(H) 7.4 - 10.4 FL 11/19/2024 10:43 AM CDT [facility] CBC COMMENT NORMAL REFERENCE RANGE NOT ESTABLISHED FOR THE PROPORTIONAL LEUKOCYTE DIFFERENTIAL. 11/19/2024 10:43 AM CDT [facility] NEUTROPHILS % 54.9 % 11/19/2024 10:43 AM CDT [facility] LYMPHOCYTES % 23.5 % 11/19/2024 10:43 AM CDT [facility] MONOCYTES % 16.2 % 11/19/2024 10:43 AM CDT [facility] EOSINOPHILS % 4.4 % 11/19/2024 10:43 AM CDT [facility] BASOPHILS % 0.8 % 11/19/2024 10:43 AM CDT [facility] IMMATURE GRANS % 0.2 % 11/20/19 10:43 AM CDT [facility] NRBC % 0.0 % 11/19/2024 10:43 AM CDT [facility] ABS. NEUTROPHILS 2.64 1.60 - 8.30 x10'3/uL 11/19/2024 10:43 AM CDT [facility] ABS. LYMPHOCYTES 1.13 0.80 - 4.70 x10'3/uL 11/19/2024 10:43 AM CDT [facility] ABS. MONOCYTES 0.78 0.00 - 1.50 x10'3/uL 11/19/2024 10:43 AM CDT [facility] ABS. EOSINOPHILS 0.21 0.00 - 0.40 x10'3/uL 11/19/2024 10:43 AM CDT [facility] ABS. BASOPHILS 0.04 0.00 - 0.20 x10'3/uL 11/19/2024 10:43 AM CDT [facility] ABS. IMMATURE GRANULOCYTES 0.01 0.00 - 0.03 x10'3/uL 11/19/2024 10:43 AM T [facility] ABS. NUCLEATED RBC'S 0.00 0.00 - 0.01 x10'3/uL 11/19/2024 10:43 AM T [facility] 11/19/2024 10:3 5 AM CDT Tio Mckenna MD LABORATORY Final Result [facility] [place] [address], * ECG 12 lead (11/19/2024 10:19 AM CDT) 11/19/2024 10:1 9 AM CDT Narrative [facility] - 11/20/2024 6:33 AM CDT [address] [place] [address] Test Date: 2024-11-19 Pat Name: ELIDA RODAS Department: 3 Room: EXAM 303 Gender: Male Results Technician: : 1940 Requested By: TIO MCKENNA Order Number: [id number] Reading MD: Allen Loera Measurements Intervals [place] Rate: 62 P: -72 [place]: 102 QRS: 245 QRSD: 90 T: 94 QT: 431 QTc: 441 Interpretive Statements ELECTRONIC ATRIAL PACEMAKER RIGHT VENTRICULAR HYPERTROPHY ANTERIOR MYOCARDIAL INFARCTION , POSSIBLY ACUTE MARKED ST ELEVATION, CONSIDER LATERAL INJURY MARKED ST ELEVATION, CONSIDER INFERIOR INJURY +++ ACUTE CO +++ Procedure Note Allen Loera MD - 11/20/[address] [place] [address] Test Date: 2024-11-19 Pat Name: ELIDA RODAS Department: 3 Room: EXAM 303 Gender: Male Results Technician: : 1940 Requested By: TIO MCKENNA Order Number: [id number] Reading : Allen Loera Measurements Intervals [place] Rate: 62 P: -72 [place]: 102 QRS: 245 QRSD: 90 T: 94 QT: 431 QTc: 441 Interpretive Statements ELECTRONIC ATRIAL PACEMAKER RIGHT VENTRICULAR HYPERTROPHY ANTERIOR MYOCARDIAL INFARCTION , POSSIBLY ACUTE MARKED ST ELEVATION, CONSIDER LATERAL INJURY MARKED ST ELEVATION, CONSIDER INFERIOR INJURY +++ ACUTE CO +++ us Tio Mckenna MD ECG ORDERABLES Final Result [facility] * (ABNORMAL) CULTURE, WOUND, W/GRAM STAIN (11/05/2024 10:47 AM CDT) SPEC DESCRIPTION FOOT,RIGHT 11/05/2024 11:03 AM CDT [facility] SPECIAL REQUESTS NO SPECIAL REQUEST 11/05/2024 11:03 AM CDT [facility] GRAM STAIN RESULT NO ORGANISMS SEEN 11/05/2024 1:04 PM CDT [facility] GRAM STAIN RESULT NO WBC SEEN 11/05/2024 1:04 PM CDT [facility] CULTURE RESULT FEW PROTEUS MIRABILIS 11/08/2024 5:42 PM CDT [facility] CULTURE RESULT FEW METHICILLIN RESISTANT STAPHYLOCOCCUS AUREUS (A) 11/08/2024 5:42 PM CDT [facility] STRUCTURE OF RIGHT FOOT / Unknown 11/05/2024 10:47 AM CDT 11/05/2024 11:17 AM CDT Narrative Organism Antibiotic Method Susceptibility Proteus mirabilis CEFAZOLIN ANIBAL (KB) INTERMEDIATE: Intermediate Proteus mirabilis AMPICILLIN ANIBAL (VITEK) Sensitive Proteus mirabilis AMOXICILLIN/CLAVULANIC A ANIBAL (VITEK) Sensitive Proteus mirabilis AZTREONAM ANIABL (VITEK) Sensitive Proteus mirabilis CEFEPIME ANIBAL (VITEK) Sensitive Proteus mirabilis CEFTRIAXONE ANIBAL (VITEK) Sensitive Proteus mirabilis CIPROFLOXACIN ANIBAL (VITEK) Sensitive Proteus mirabilis ERTAPENEM ANIBAL (VITEK) Sensitive Proteus mirabilis GENTAMICIN ANIBAL (VITEK) Sensitive Proteus mirabilis IMIPENEM ANIBAL (VITEK) INTERMEDIATE: Intermediate Proteus mirabilis LEVOFLOXACIN ANIBAL (VITEK) Sensitive Proteus mirabilis MEROPENEM ANIBAL (VITEK) Sensitive Proteus mirabilis PIPRACIL/TAZO ANIBAL (VITEK) Sensitive Proteus mirabilis TRIMETH-SULFAMETH. ANIBAL (VITEK) Sensitive Proteus mirabilis TETRACYCLINE ANIBAL (VITEK) Resistant Methicillin resistant staphylococcus aureus CLINDAMYCIN ANIBAL (VITEK) Resistant Methicillin resistant staphylococcus aureus ERYTHROMYCIN ANIBAL (VITEK) Resistant Methicillin resistant staphylococcus aureus GENTAMICIN ANIBAL (VITEK) Sensitive Methicillin resistant staphylococcus aureus OXACILLIN ANIBAL (VITEK) Resistant Methicillin resistant staphylococcus aureus PENICILLIN G ANIBAL (VITEK) Resistant Methicillin resistant staphylococcus aureus RIFAMPIN ANIBAL (VITEK) Sensitive Methicillin resistant staphylococcus aureus TRIMETH-SULFAMETH. ANIBAL (VITEK) Sensitive Methicillin resistant staphylococcus aureus TETRACYCLINE ANIBAL (VITEK) Sensitive Methicillin resistant staphylococcus aureus TIGECYCLINE ANIBAL (VITEK) Sensitive Methicillin resistant staphylococcus aureus VANCOMYCIN ANIBAL (VITEK) Sensitive us Raisa Shearer COKE HANDLING SUPERVISOR MICROBIOLOGY - GENERAL ORDERAB LES Final Result [facility] [address] [place] [address], [id number] [facility] [address] [place] [address], * (ABNORMAL) LIPID PANEL (10/18/2017 2:35 AM TREASURY ASSISTANT) [facility] Signature CHOLESTEROL 128 0 - 200 MG/DL 10/18/2017 4:25 AM TREASURY ASSISTANT [facility] Comment:DESIRABLE: <200 TRIGLYCERIDES 190(H) 0 - 149 MG/DL 10/18/2017 4:25 AM TREASURY ASSISTANT [facility] Comment:150-199 BORDERLINE H I[facility] HDL 24(L) >39 MG/DL 10/18/2017 4:25 AM TREASURY ASSISTANT [facility] Comment:LOW: <40 DIRECT LDL 65 0 - 129 MG/DL 10/18/2017 4:25 AM TREASURY ASSISTANT [facility] Comment:<100 OPTIMAL [id number]|2025-01-05 16:53:00|2025-01-05 16:53:00|XMS_ITS|MARCELLO COLLINS|External Medical Summaries|[id number]|" Clinical Summary Created on: January 05, 2025 Cynthia Ruelas : 01/14/1969 Sex: Female Author Organization [facility] Address [address] [place] [address] Care Team Providers Care Architecture Instructor Name Role Phone Teresa Alvarado MD Unavailable Unavailable Jarett Richards MD Unavailable Unavailable Donald Rogers MD Unavailable [phone] Trevor Crowe MD Unavailable [phone] Macho Peterson MD Unavailable Pete Dukes MD Unavailable [phone] Jarett Owen MD Unavailable [phone] Pcp, [facility]- Primary Care Provider Unavailable Source Comments [facility],non-owned Affiliates and Associated Physician Practices is amultiple site organization consisting of ambulatory clinics and hospital sitesin [place], [place], [place] and [place]. This disclosure is being madepursuant to the Care Everywhere program and may not contain all information available regarding this patient. Last updated 18.[facility] Allergies Active Allergy Reactions Criticality Noted Date Comments Codeine Nausea and/or Vomiting 07/23/2012 Codeine Vomiting 05/17/2020 Morphine Vomiting 03/10/2020 Penicillins 07/23/2012 Penicillins Anaphylaxis High 05/17/2020 Medications * Be aware that medications may not be up to date on this document. Alwaysverify current medications with the patient. vitamin D, cholecalciferol, 2000 UNITS tablet Take 2,000 Units by mouth once daily Active aspirin (ASPIRIN) 81 MG tablet Take 1 tablet by mouth once daily 100 tablet 4 03/26/20 19 Active aspirin-acetaminop hen-caffeine (EXCEDRIN MIGRAINE) 250-250-65 MG tablet Take 2 tablets by mouth as needed for Headache Active nicotine (NICODERM CQ) 21 MG/24HR patchIndications:T obacco abuse Apply 1 patch to skin once daily 30 patch 6 09/06/19 21 Active Additional Information Patient taking differently:1 patch TransdermalPRN, Reported on 10/28/2020 baclofen (LIORESAL) 10 MG tablet Take 1 (one) tablet by mouth 2 times daily as needed May cause drowsiness. 60 tablet 2 11/17/19 21 Active tapentadol CR 12hr (NUCYNTA ER) 100 MG tabletIndications: Lumbar spondylosis,S/P lumbar fusion,Primary osteoarthritis involving multiple joints,Neuropathy Take 1 (one) tablet by mouth every 12 hours DX M47.816 60 tablet 11/17/19 21 Active pregabalin (LYRICA) 150 MG capsule Take 150 mg by mouth 3 times daily 03/07/20 21 Active lisinopril (PRINIVIL; ZESTRIL) 20 MG tabletIndications: Essential hypertension Take 1 (one) tablet by mouth once daily 90 tablet 1 06/19/20 21 Active DULoxetine (CYMBALTA) 60 MG capsuleIndications :Anxiety and depression Take 1 (one) capsule by mouth once daily 90 capsule 1 06/19/20 21 Active vitamin D, ergocalciferol, (DRISDOL) 1.25 MG (76917 UT) capsule Take 1 (one) capsule by mouth every 7 days 12 capsule 1 07/17/20 21 Active atorvastatin (LIPITOR) 80 MG tablet Take 1 (one) tablet by mouth once daily 90 tablet 1 07/17/20 21 Active insulin glargine (Lantus/Semglee) 100 units/mL penIndications:Typ e 2 diabetes mellitus with diabetic polyneuropathy, without long-term current use of insulin ([facility]) Inject 35 (thirty five) Units subcutaneously at bedtime 15 mL 2 08/31/19 22 Active apixaban (ELIQUIS) 5 MG tablet Take 1 (one) tablet by mouth 2 times daily 60 tablet 5 08/31/19 22 Active JANUVIA 100 MG tabletIndications: Type 2 diabetes mellitus with diabetic polyneuropathy, without long-term current use of insulin ([facility]) TAKE 1 TABLET BY MOUTH EVERY DAY 30 tablet 08/01/20 22 Active Active Problems Problem Noted Date Diagnosed Date Anxiety and depression 06/19/2021 Syncope and collapse 05/17/2020 Hyperventilation syndrome 05/17/2020 Medication overuse headache 05/29/2019 Cerebrovascular small vessel disease 05/29/2019 Intractable 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 05/29/2019 Abnormal stress test 03/26/2019 History of hysterectomy for benign disease 03/17 Premature surgical menopause 03/17/2019 nursing home (current) use of anticoagulants 2018 History of DVT (deep vein thrombosis) 07/28/2018 Vitamin D deficiency 12/07/2016 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 01/12/2016 Overview (05/04/2021): Jagruti Stokes, CHOCOLATE FINISHER OPERATOR-WINDLASSER Ov 10/28/20 HLD (hyperlipidemia) 01/12/2016 Neuropathy 01/12/2016 Degenerative joint disease involving multiple ashely ints 01/12/2016 Chronic low back pain 01/12/2016 Lumbar radiculopathy 01/12/2016 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 10/18/2015 Overview (05/04/2021): Jagruti Stokes, CHOCOLATE FINISHER OPERATOR-WINDLASSER 10/28/20 ov Essential hypertension 10/18/2015 Spinal stenosis of lumbar region Resolved Problems Problem Noted Date Diagnosed Date Resolved Date Acute deep vein thrombosis ( DVT) of other vein of lower extremity, unspecified laterality 07/30/2019 12/22/2019 History of chlamydia 03/17/2019 07/ 020 continuous churn buttermaker (current) use of anticoagulants 07/28/2018 10/08/2018 Pre-op testing 05/14/2018 10/08/2018 continuous churn buttermaker current use of ant icoagulant therapy 08/05/2017 10/08/2018 Overview (11/23/2017): IMO update 11 24 2017 continuous churn buttermaker current use of anticoagulant 06/22/2016 10/08/2018 Deep vein thrombosis (DVT) o f lower extremity, unspecified chronicity, unspecified laterality, unspecified vein 06/22/2016 10/08/2018 Hypokalemia 06/20/2016 06/28/2016 Acute renal failure 06/18/2016 06/28/20 16 Hyperkalemia 06/18/2016 06/18/2016 Metabolic acidosis 06/18/2016 6 Benign essential hypertension 01/12/2016 05/17/2016 Pain 01/12/2016 05/17/2016 Hyperlipidemia 10/18/2015 05/17/2016 Immunizations Immunization Administration Dates Next Due Richar Sportsy primary monoval ent 12+ yr 0.3mL Purple cap 06/19/2021,09/13/2020,08/23/2020 HEP B VACCINE, ADULT 3 DOSE 12/20/2016, 6,05/17/2016 INFLUENZA VACCINE 05/26/2019, 7,06/09/2014,2012,05/07/2012 INFLUENZA VACCINE, HIGH-DOSE , QUADR. (FLUZONE HIGH-DOSE QUADRIVALENT; 65Y+), 0.7 ML (HD-IIV4) 06/25/2017 INFLUENZA VACCINE, QUADR. (F LUZONE; FLULAVAL; FLUARIX; AFLURIA QUADRIVALENT; 6MO+), 0.5 ML (IIV4) 06/19/2021,05/06/2018,05/17/2016 PNEUMOCOCCAL PPSV23 01/26/2016 TDAP (7yrs+) 08/21/2016 Zoster Hzv Vacc Recombinant Inj Im 06/19/2021 iNFLUENZA VACCINE, RECOM-MCGILL, QUADR. (FLUBLOCK QUADRIVALENT; 18Y+) (RIV4) 05/27/2020 Family History Medical History Relation Name Comments Anxiety Disorder Father CAD (Coronary Artery Disease) Father cabg Diabetes Father Hypertension Father Pacemaker Maternal Grandfather Diabetes Maternal Grandmother Hypertension Maternal Grandmother Other Maternal Grandmother feeding tube, throat closed Diabetes Mother Hypercholesterolemia Mother Hypertension Mother Alzheimer's Disease Paternal Grandmother Dementia Paternal Grandmother Relation Name Status Comments Father Maternal Grandfather Maternal Grandmother Mother Paternal Grandmother Social History Tobacco Use Types Packs/Day Years Used Date Smoking Tobacco: Every Day Cigarettes Smokeless Tobacco: Never Tobacco Cessation:Ready to Q uit: Yes; Counseling Given: Yes Comments:08.23.2020-pt states about 3 cigs a day Alcohol Use Standard Drinks/Week Comments Not Currently 0 (1 standard drink = 0.6 oz pur e alcohol) PHQ-2 Answer Date Recorded PHQ2 TOTAL SCORE 2 06/19/2021 Comments No Sex and Gender Information Value Date Recorded Sex Assigned at Not on file Legal Sex Female 9:44 AM TREASURY ASSISTANT Gender Identity Not on file Sexual Orientation Not on file 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 Not on file Not on file Not on file Last Filed Vital Signs Vital Sign Reading Time Taken Comments Blood Pressure 140/79 07/14/2021 9:36 AM TREASURY ASSISTANT Pulse 97 07/14/2021 9:36 AM TREASURY ASSISTANT Temperature 36.6 C (97.9 F) 05/04/2021 2:16 PM CDT Respiratory Rate 18 11/16/2020 11:35 AM CDT Oxygen Saturation 95% 07/14/2021 9:36 AM TREASURY ASSISTANT Inhaled Oxygen Concentration - - Weight 74.8 kg (165 lb) 07/14/2021 9:36 AM TREASURY ASSISTANT Height 157.5 cm (5' 2 ) 07/14/2021 9:36 AM TREASURY ASSISTANT Body Mass Index 30.18 07/14/2021 9:36 AM TREASURY ASSISTANT Plan of Treatment Health Maintenance Due Date Last Done Comments COLOGUARD (AGES 45-75) - COLON CA SCREENING 01/14/1970 COLON MONITORING 01/14/1970 COLONOSCOPY - COLON CA SCREENING 01/14/1970 CT COLONOGRAPHY - COLON CA SCREENING 01/14/1970 Colorectal Cancer Screening 01/14/1970 FIT - COLON CA SCREENING 01/14/1970 FLEX SIG - COLON CA SCREENING 01/14/1970 PNEUMOCOCCAL VACCINE 50+ (2 of 2 - PCV) 01/25/2017 01/26/2016 ZOSTER VACCINE (2 of 2) 08/14/2021 06/19/2021 DIABETES-HGB A1C 12/18/2021 06/19/2021, , 03/09/2020, Additional history exists DIABETES-FOOT EXAM WITH MONOFILAMENT 06/19/2022 06/19/2021, 01/27/2018, 12/02/2017, Additional history exists DIABETES-SERUM CREATININE 07/14/20222020, 05/18/2020, 05/17/2020, Additional history exists MAMMOGRAM 10/28/2022 10/28/2020, 01/29/2017 DIABETES RETINOPATHY SCREENING 02/28/2023 02/28/2021, 01/14/2020, 01/08/2019, Additional history exists COVID-19 VACCINE ( season) 2024 06/19/2021, 09/13/2020, 08/23/2020 DEPRESSION SCREENING 08/26/2024 DIABETES - URINE PROTEIN SCREENING 08/26/2024 08/23/2020, 01/06/2018, 10/31/2016, Additional history exists INFLUENZA VACCINE (Season Ended) 2025 06/19/2021, 05/27/2020, 05/26/2019, Additional history exists DTAP/TDAP/TD VACCINES (2 - Td or Tdap) 08/21/2026 08/21/2016 HEPATITIS C SCREENING Completed 06/18/2016, 011 HIV SCREENING Completed 06/18/2016, 01/25/2011 HEPATITIS B VACCINE Completed 12/20/2016, 08/21/2016, 05/17/2016 HIB VACCINE Aged Out No longer eligi ble based on patient's age to complete this topic HPV VACCINE Aged Out No longer eligi ble based on patient's age to complete this topic MENINGOCOCCAL (Group B) VACCINE SHARED DECISION-MAKING Aged Out No longer eligible based on patient's age to complete this topic MENINGOCOCCAL GROUPS A/C/Y/W VACCINE Aged Out No longer eligible based on patient's age to complete this topic Goals Goal Patient Goal Type Associated Problems Recent Progress Patient-Stated? Author Right level of care at the right time. General Yes Lois Owen RN Note: Cynthia will call the doctor if she has an increased temperature (greater than 101), unrelieved pain, symptoms that are not relieved or worsening, and side effects of medications. Progress toward goal attainment: 0% : Ongoing / No progress Barriers to goal attainment: None identified Medical Devices Implanted Type Area Equipment Service Technician Device Identifier Shelf Expiration Date Model / Serial / Lot Proclaim Elite 5 W/Ptnt Cntrl Implanted:Qty: 1 on 10/29/2018 by Macho Peterson MD at [facility] Back Yo Spine 06/17/2020 [id number] / / Description:PROCLAIM ELITE I MPLANTABLE PULSE GENERATOR Kit Nrstm 60cm Octrode Perc [address] - [id number] Implanted:Qty: 1 on 10/29/2018 by Macho Peterson MD at [facility] Back Theodore Cardiac Rhythm Management 05/11/2020 [id number] / [id number] / [place] Ld Singh-Lck Implanted:Qty: 2 on 10/29/2018 by Macho Peterson MD at [facility] Back 09/09/2020 1192 / / [id number] Description:SINGH LOCK Kit Nrstm 60cm Octrode Perc 8 [address]d - [id number] Implanted:Qty: 1 on 10/29/2018 by Macho Peterson MD at [facility] Back Theodore Cardiac Rhythm Management 05/11/2020 [id number] / [id number] / Procedures Procedure Name Priority Date/Time Associated Diagnosis Comments COMPREHENSIVE METABOLIC PANEL Routine 07/14/2021 9:23 AM TREASURY ASSISTANT Essential hypertension Pure hypercholesterolemia HEMOGLOBIN A1C - POINT OF CARE (AMB) Routine 06/19/2021 11:41 AM CDT Type 2 diabetes mellitus with diabetic polyneuropathy, without long-term current use of insulin DIABETES EYE EXAM Routine 02/28/2021 MAMMO BILAT SCREENING Routine 10/28/2020 10:46 AM TREASURY ASSISTANT Encounter for screening mammogram for breast cancer MICROALB/CREAT URINE - POINT OF CARE (AMB) Routine 08/23/2020 11:18 AM TREASURY ASSISTANT Type 2 diabetes mellitus with diabetic polyneuropathy, without long-term current use of insulin DIABETES FOOT EXAM Routine 01/27/2018 HEPATITIS C ANTIBODY Routine 06/18/2016 11:27 AM CDT HIV-1 HIV-2 ANTIBODY + HIV P24 AG PANEL STAT 06/18/2016 11:27 AM CDT from Last 3 Months or Most Recently Relevant to Health Maintenance Results * (ABNORMAL) COMPREHENSIVE METABOLIC PANEL (07/14/2021 9:23 AM TREASURY ASSISTANT) Glucose 221(H) 70 - 105 mg/dL [facility] ACCOUNT BILL BUN 12 9.8 - 20.1 mg/dL [facility] ACCOUNT BILL Creatinine 1.10 0.57 - 1.11 mg/dL [facility] ACCOUNT BILL eGFR by MDRD 52(L) >60 mL/min/1.7 3m2 [facility] ACCOUNT BILL eGFR by MDRD >60 >60 mL/min/1.7 3m2 [facility] ACCOUNT BILL Sodium 136 136 - 145 mmol/L [facility] ACCOUNT BILL Potassium 4.2 3.5 - 5.1 mmol/L [facility] ACCOUNT BILL Chloride 98 98 - 107 mmol/L [facility] ACCOUNT BILL CO2 27 23 - 31 mmol/L [facility] ACCOUNT BILL Calcium 9.2 8.4 - 10.4 mg/dL [facility] ACCOUNT BILL Protein Total 7.1 6.4 - 8.3 gm/dL [facility] ACCOUNT BILL Albumin 4.2 3.5 - 5.2 gm/dL [facility] ACCOUNT BILL Bilirubin Total 0.2 0.2 - 1.2 mg/dL [facility] ACCOUNT BILL Alkaline Phosphatase 112 40 - 150 U/L [facility] ACCOUNT BILL AST 19 5 - 34 U/L [facility] ACCOUNT BILL ALT 25 0 - 61 U/L [facility] ACCOUNT BILL Comment:FASTING Blood BLOOD SPECIMEN / Unknown 07/14/2021 9:23 AM TREASURY ASSISTANT 07/14/2021 Narrative Resulting Agency Comment Lab Testing performed at: [address] [phone] us Teresa Alvarado MD LAB - CHEMISTRY ORDERABLES Final Result [facility] ACCOUNT BILL [address] [place] [address] * HEMOGLOBIN A1C - POINT OF CARE (HgbA1C) (06/19/2021 11:41 AM CDT) Pathologist [facility] Hemoglobin A1c POCT 7.2 % [facility] Expiration Date 20230220 [facility] Lot # [id number] [facility] QC Verified Yes Yes [facility] Blood BLOOD SPECIMEN / Unknown 06/19/2021 11:41 AM CDT us Teresa Alvarado MD LAB - POINT OF CARE ORDERABLES F inal Result [facility] [address] [place] [address], [facility] [phone] * DIABETES EYE EXAM (02/28/2021) us Scanned Document HEALTH MAINTENANCE Final Result * MAMMO BILAT SCREENING (10/28/2020 10:46 AM TREASURY ASSISTANT) Anatomical Region Laterality Modality Breast Bilateral Mammography 10/28/2020 2:20 PM TREASURY ASSISTANT Impressions 10/28/2020 2:20 PM TREASURY ASSISTANT No mammographic evidence of malignancy in either breast. ASSESSMENT: BIRADS Category 1: Negative mammogram. RECOMMENDATION: Bilateral screening mammogram in one year. Thank you for allowing us to participate in the care of your patient. *Reading Radiologist: Jenae Wild on 10/28/2020 at 2:20 PM Narrative 10/28/2020 2:20 PM TREASURY ASSISTANT EXAMINATION: Digital screening mammogram on 10/28/2020 10:26 AM. Low-dose full-field digital breast tomosynthesis examination was performed with synthetic 2D images and 3D acquisitions. Computer assisted detection was utilized. PRIOR: 2016 BREAST PARENCHYMAL DENSITY: The breasts are almost entirely fatty. RISK ASSESSMENT CALCULATION: Risk assessment not performed due to COVID precautions FINDINGS: No suspicious masses, areas of architectural distortion or microcalcifications are evident on synthetic 2D mammogram or tomosynthesis images. There has been no significant interval change since the prior examination. us Teresa Alvarado MD MAMMO ORDERABLES Final Result * MICROALB/CREAT URINE - POINT OF CARE (AMB) (08/23/2020 11:18 AM TREASURY ASSISTANT) QC Verified Yes Yes [facility] Microalbumin 30 mg/L [facility] Creatinine POCT 50 mg/dL [facility] Microalbumin/Crea tinine Ratio 30-300 mg/g [facility] Lot # [id number] [facility] Expiration Date 10.28.[address] [facility] Urine URINE / Unknown 08/23/2020 1 1:18 AM TREASURY ASSISTANT Teresa Alvarado MD LAB - POINT OF CARE ORDERABLES F inal Result Performing Organization Address City/[facility] Co de Phone Number [facility] [address] [place] [address], [facility] [phone] * DIABETES FOOT EXAM (01/27/2018) Fausto De La O DPM HEALTH MAINTENANCE Final Resu lt * HIV-1 HIV-2 ANTIBODY + HIV P24 AG PANEL (06/18/2016 11:27 AM CDT) Pathologist [facility] HIV1/2 Ab + P24 Ag Non Reactive Non Reactive 06/18/2016 5:43 PM CDT [facility] Blood BLOOD SPECIMEN / Unknown Venipuncture / Unknown 06/18/2016 11:27 AM CDT 06/18/2016 11:43 AM CDT Narrative [facility] - 06/18/2016 5:43 PM CDT No Laboratory evidence of HIV infection. Kandice Bourgeois MD LAB - CHEMISTRY ORDERABLES Fi nal Result Performing Organization Address City/[facility] Co de Phone Number [facility] [place] [address] * HEPATITIS C ANTIBODY (06/18/2016 11:27 AM CDT) HCV Antibody Screen Non Reactive Non Reactive 06/18/2016 3:17 PM CDT [facility] HCV S/C Ratio 0.06 0.00 - 0.79 06/18/2016 3:17 PM CDT [facility] Comment: Oarsxl-mv-rbgpcr ratio (S/CO) <0.80: Non Reactive Blood BLOOD SPECIMEN / Unknown Venipuncture / Unknown 06/18/2016 11:27 AM CDT 06/18/2016 2:02 PM CDT Narrative [facility] - 06/18/2016 3:17 PM CDT Non Reactive - Antibodies to Hepatitis C virus (HCV) were not detected, result does not exclude early acute HCV infection. us Kandice Bourgeois MD LAB - CHEMISTRY ORDERABLES Fi nal Result [facility] [address] [place] [address] from Last 3 Months or Most Recently Relevant to Health Maintenance [place] [address] [address] [place] [address] HEALTH Advance Directives * Full Code (Latest Code Status on File) Date Activated Date Inactivated Comments 05/17/2020 5:25 PM 05/19/2020 2:40 PM * Full Code Date Activated Date Inactivated Comments 05/17/2020 5:25 PM 05/17/2020 5:25 PM * Full Code Date Activated Date Inactivated Comments 06/16/2016 4:27 PM 06/22/2016 5:02 PM Care Teams Architecture Instructor Relationship Specialty Start Date End Date Pcp, [facility]- PCP - General 06/25/24 Teresa Alvarado MD Internal Medicine 05/18/20 Jarett Richards MD Ophthalmology 03/21/17 Donald Rogers MD [address] [facility] [address] [place] [address] Oncology 03/21/17 Trevor Crowe MD [address] [facility] [address] [place] [phone] Nephrology 03/21/17 Macho Peterson MD [address] [facility] [address] [place] [address] Anesthesiology 05/06/18 Pete Dukes MD [address] [facility] [address] [place] [address] Cardiovascular Disease 03/26/19 Jarett Owen MD [address] [place] [address] Anesthesiology 10/28/20 "
--- OUTSIDE RECORDS SUMMARY | 2025-01-05 16:44 | XMS_ITS | Encounter Summary ---
Author Organization [facility] Address [address] [place] [address] Care Team Providers Care Ball Assembler Name Role Phone Jovan Beltran MD Unavailable UnavailPrashanth Weston MD Unavailable [phone] Myrna Robles NP Unavailable Unavailable Vero Victor COMMUNICATIONS ADMINISTRATOR Unavailable [phone] Ruddy Yang MD Primary Care Provider [phone] Hany Geller DPM Unavailable [phone] Jovan Weathers DPM Unavailable [phone] Sydney Lazaro MD Unavailable [phone] Encounter Details Date Type Department Care Team (Late st Contact Info) Description 05/22/2022 Hospital Follow-up Call [facility] Unit [address] [place] [address] Zainab Mckinney, RN Social History [...] Date Author Status No 05/16/2022 11:00 AM CDT Mariam Macias RN Active documented in this encounter Plan of Treatment Upcoming Encounters Date Type Department Care Team (Late st Contact Info) Description 01/07/2025 11:[address] [facility] [address] [place] [address] Raisa Shearer FNP [address] [place] [address] documented as of this encounter Goals Goal [...] documented as of this encounter Care Teams Ball Assembler Relationship Specialty Start Date End Date Ruddy Yang MD [address] [place] [phone] PCP - General INTERNAL MEDICINE 03/01/20 Jovan Beltran MD [place] [employer] Super[employer] CLINICAL CARDIAC ELECTROPHYSIOLOGY 04/04/17 Prashanth Koch MD [place] [employer] CARDIOVASCULAR DISEASE 08/23/17 Myrna Robles NP Referring Physician CARDIOVASCULAR DISEASE 05/01/18 Vero Victor FNP FAMILY PRACTICE 09/30/18 Hany Geller DPM [facility] [place] [address] Consulting Physician PODIATRY/SURGERY 12/06/22 12/07/23 Jovan Weathers DPM [address] [place], [place] [id number] Consulting Physician PODIATRY 02/28/23 02/29/24 Sydney Lazaro MD [address] [place] [phone] Internal Medicine - Infectious Disease 02/28/23 02/29/24 documented as of this encounter
--- OUTSIDE RECORDS SUMMARY | 2025-01-05 16:44 | XMS_ITS | Encounter Summary ---
Author Organization [facility] Address [facility] [place] [address] Care Team Providers Care Game Tester Name Role Phone Jovan Beltran MD Unavailable UnavailPrashanth Weston MD Unavailable [phone] Myrna Robles NP Unavailable Unavailable Vero Victor SANDBLAST OR SHOTBLAST EQUIPMENT TENDER Unavailable [phone] Ruddy Yang MD Primary Care Provider [phone] Encounter Details Date Type Department Care Team (Late st Contact Info) Description 11/19/2024 Hospital Orders Only [facility] [address] [place] [address] Raisa Shearer, SANDBLAST OR SHOTBLAST EQUIPMENT TENDER [address] [place] [address] Social History Tobacco Use Types Packs/Day Years [...] on file documented as of this encounter Functional Status [...] Assessment Author Status No 05/16/2022 11:00 AM CHANDLERT Mariam Macias RN Active * Do you have difficulty dressing or bathing? Answer Date of Assessment Author Status No 05/16/2022 11:00 AM CDT Mariam Macias RN Active * Because of a physical, mental, or emotional condition, do you have difficulty doing errands alone such as visiting a doctor's office or shopping? Answer Date of Assessment Author Status No 05/16/2022 11:00 AM CHANDLERT Mariam Macias RN Active * Calculated C-SSRS Risk Score (Lifetime/Recent) Answer Date of Assessment Author Status No Risk Indicated 11/19/2024 10:18 AM CHANDLERT Bharait Espinosa RN Active * Graham Suicide Severity Rating Scale (Screener/Recent Self-Report) Question Answer Date of Assessment Author Status 1. Wish to be (Past 1 Month) No 11/19/2024 10:18 AM CHANDLERT Malorie Espinosa RN Act kim 2. Non-Specific Active Suicidal Thoughts (Past 1 Month) No 11/19/2024 10:18 AM Malorie Booth RN Act kim 6. Suicidal Behavior (Lifetime) No 11/19/2024 10:18 AM Malorie Booth RN Act kim documented as of this encounter Mental Status [...] Appointment [facility] [address] [place] [address] Raisa Shearer, SANDBLAST OR SHOTBLAST EQUIPMENT TENDER [address] [facility] [place] [address] documented as of this encounter Goals Goal Patient Goal Type Associated Problems Recent Progress Patient-Stated? 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
--- OUTSIDE RECORDS SUMMARY | 2025-01-05 16:44 | XMS_ITS | Encounter Summary ---
Author Organization [facility] Address [address] [place] [address] Care Team Providers Care Oil Spraying Machine Operator Name Role Phone Jovan Beltran MD Unavailable UnavailPrashanth Weston MD Unavailable [phone] Mumtaz Ortega MD,PHD Unavailable Parviz Mcbride MD Unavailable Unavailable Deondre Nicolas MD Unavailable [phone] Shaan Whitt MD Unavailable [phone] Myrna Robles IMPROVEMENT ENGINEER Unavailable Unavailable Vero Victor EEO OFFICER Unavailable [phone] Phillip Hammer DO Primary Care Provider [phone] Ruddy Yang MD Primary Care Provider [phone] Hany Geller DPM Unavailable [phone] Jovan Weathers DPM Unavailable [phone] Sydney Lazaro MD Unavailable [phone] Encounter Details Date Type Department Care Team (Late st Contact Info) Description 02/02/2016 Abstract [facility] [address] [place] [address] Jovan Beltran MD Social History [...] Info) Description 01/07/2025 11:00 AM CDT Appointment [facility] [address] [facility] [place] [address] Raisa Shearer, EEO OFFICER [address] [facility] [place] [address] documented as of this encounter Visit Diagnoses Not on filedocumented in this encounter Additional Health Concerns Infection Onset Date Last Indicated Resolved Time 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 documented as of this encounter Care Teams Oil Spraying Machine Operator Relationship Specialty Start Date End Date Phillip Hammer DO [address] [place], [place] [id number] PCP - General FAMILY PRACTICE 01/22/20 02/29/20 Ruddy Yang MD [address] [place] [id number] PCP - General INTERNAL MEDICINE 03/01/20 Jovan Beltran MD [employer] CLINICAL CARDIAC ELECTROPHYSIOLOGY 04/04/17 Prashanth Koch MD [employer] CARDIOVASCULAR DISEASE 08/23/17 Mumtaz Ortega MD,PHD [employer] CARDIOTHORACIC SURGERY 09/13/17 01/21/20 Parviz Artis MD CRITICAL CARE MEDICINE 10/18/17 01/21/20 Deondre Nicolas MD [address] [place] [address] NEUROLOGY 11/12/17 03/29/20 Shaan Whitt MD [address] [place] [address] UROLOGY 02/07/18 01/21/20 Myrna Robles, IMPROVEMENT ENGINEER [address] [place] [address] Referring Physician CARDIOVASCULAR DISEASE 05/01/18 Vero Victor, EEO OFFICER [address] [place], [place] [id number] FAMILY PRACTICE 09/30/18 Hany Geller DPM [address] [facility] [place] [address] Consulting Physician PODIATRY/SURGERY 12/06/22 12/07/23 Jovan Weathers DPM [address] [facility] [place] [address] Consulting Physician PODIATRY 02/28/23 02/29/24 Sydney Lazaro MD [address] [place] [id number] Internal Medicine - Infectious Disease 02/28/23 02/29/24 documented as of this encounter
--- OUTSIDE RECORDS SUMMARY | 2025-01-05 16:44 | XMS_ITS | Clinical Summary ---
Author Organization [facility] Address [address] [place] [address] Phone Care Team Providers Care Hand Clipper Name Role Phone Ruddy Yang MD Primary Care Provider [phone] Allergies Active Allergy Reactions Criticality Noted Date Comments Acetaminophen Unknown 10/11/2019 Oxycodone Hallucinations,Other (see comments) High 10/12/2014 agitation Statins Myopathy 07/18/2016 Sulfa Antibiotics Medium 10/12/2014 Other reaction(s): Unknown, Vomiting Medications albuterol (2.5 MG/3ML) 0.083% nebulizer solution Inhale 2.5 mg Active allopurinol (ZYLOPRIM) 100 MG tablet TAKE 1 TABLET BY MOUTH ONCE DAILY NEEDED FOR GOUT 9 Active aspirin 81 MG chewable tablet Aspirin Childrens (aspirin) tablet,chewabl e 81 mg; take 1 tablet by mouth at bedtime; 0; 0; -Jul-2014; Active 4 Active atorvastatin (LIPITOR) 40 MG tablet Take 40 mg by mouth 1 (one) time each day 0 Active carvedilol (COREG) 12.5 MG tablet TAKE 1 TABLET BY MOUTH TWICE DAILY WITH MEALS 8 Active clopidogrel (PLAVIX) 75 MG tablet Take 75 mg by mouth daily Active finasteride (PROSCAR) 5 MG tablet Take 5 mg by mouth 1 (one) time each day 0 Active gabapentin (NEURONTIN) 600 MG tablet Take 600 mg by mouth 3 times daily 4 Active indomethacin (INDOCIN) 25 MG capsule TAKE 1 CAPSULE BY MOUTH THREE TIMES DAILY NEEDED FOR GOUT 9 Active pregabalin (LYRICA) 100 MG capsule Take 100 mg by mouth 3 (three) times a day 0 Active tamsulosin (FLOMAX) 0.4 MG 24 hr capsule Take 0.4 mg by mouth 1 (one) time each day 0 Active traMADol (ULTRAM) 50 MG tablet Take 50 mg by mouth every 6 (six) hours if needed for pain 0 Active traZODone (DESYREL) 50 MG tablet Take 50 mg by mouth 3 (three) times a day 9 Active metOLazone (ZAROXOLYN) 2.5 MG tablet Take 2.5 mg by mouth 1 (one) time each day 0 Active fluticasone (FLONASE) 50 MCG/ACT nasal spray 0 Active pantoprazole (PROTONIX) 40 MG EC tablet 0 Active cholecalciferol (VITAMIN D-3) 25 MCG (1000 UT) tablet Take 1,000 Units by mouth daily Active cilostazol (PLETAL) 50 MG tablet 1 Active Linzess 145 MCG capsule 1 Active ofloxacin (OCUFLOX) 0.3 % ophthalmic solution 1 Active colchicine 0.6 MG tablet 2 Active potassium chloride (KLOR-CON M20) 20 MEQ CR tablet 2 Active Eliquis 2.5 MG tablet 2 Active furosemide (LASIX) 40 MG tablet 2 Active Active Problems Problem Noted Date Diagnosed [...] Ablation. DOI 05/25/[address] Jovan Beltran. Sav remote monitoring. Permanent atrial fibrillation 04/04/2017 Benign prostatic hypertrophy with outflow obstru ction 03/02/2017 H/O: malignant neoplasm 03/02/2017 Lumbar spondylosis 08/10/2015 Chronic obstructive pulmonary disease 01/29/2014 Overview (06/07/2021): COPD COPD Overview: COPD Coronary arteriosclerosis 01/29/2014 Overview (10/11/2019): Coronary artery disease Hyperlipidemia 01/29/2014 Overview (10/11/2019): High cholesterol Hypertension 01/29/2014 Overview (10/11/2019): High blood pressure Lumbago 02/04/2009 Immunizations Immunization Administration Dates Next Due Influenza (IM) Preservative [...] at Not on file Legal Sex Male 10:51 AM MST Gender Identity Not on file Sexual Orientation [...] Medium Risk (1 of 4 - PCV) 1991 Influenza Vaccine (Season Ended) 2025 04/26/20 15, 06/26/2014 Insurance MEDICARE [facility] Care Teams Hand Clipper Relationship Specialty Start Date End Date Ruddy Yang MD [address] [place] [address] PCP - General Internal Medicine 12/19/20
--- OUTSIDE RECORDS SUMMARY | 2025-01-05 16:44 | XMS_ITS | Clinical Summary ---
Author Organization [facility] Address [address], [facility] [address] [place] [address] Phone Care Team Providers Care Sql Report Developer Name Role Phone Provider, Not On File [...] drink = 0.6 oz pur e alcohol) [facility] Utilities Answer Date Recorded In the past 12 months has [employer], [employer], or water [employer] threatened to shut off services in your home? Patient declined 09/24/2023 Social Connection and Isolation Panel [NHANES] A nswer Date Recorded In a typical week, how many times do you talk on the phone with family, friends, or neighbors? Patient declined 09/24/2023 How often do you get togethe r with friends or relatives? Patient declined 09/24/2023 How often do you attend baptism or cheondoism serv ices? Patient declined 09/24/2023 Do you belong to any clubs o r organizations such as baptism groups, unions, fraternal or athletic groups, or [...] Answer Date Recorded PHQ-2 Score 0 04/27/2019 [facility] - Occupational Stress Questionnaire Answer Date Recorded [...] place to sleep or slept in a alf (including now)? Patient declined 09/24/2023 Sex and Gender Information Value Date Recorded Sex Assigned at Not on file Legal Sex Male 2:21 PM ONLINE MERCHANDISING COORDINATOR Gender Identity Not on file Sexual Orientation Not on file Last Filed Vital Signs Vital Sign Reading Time Taken Comments Blood Pressure 150/84 09/26/2023 8:00 AM ONLINE MERCHANDISING COORDINATOR Pulse 74 09/26/2023 8:00 AM ONLINE MERCHANDISING COORDINATOR Temperature 35.9 C (96.7 F) 09/26/2023 8:33 AM ONLINE MERCHANDISING COORDINATOR Respiratory Rate 20 09/26/2023 8:00 AM ONLINE MERCHANDISING COORDINATOR Oxygen Saturation 97% 09/26/2023 8:0 0 AM ONLINE MERCHANDISING COORDINATOR Inhaled Oxygen Concentration - - Weight 77.5 kg (170 lb 12.8 oz) 09/26/2023 5:55 AM ONLINE MERCHANDISING COORDINATOR daily weight Height 172.7 cm (5' 8 ) 09/24/2023 3:06 PM ONLINE MERCHANDISING COORDINATOR Body Mass Index 25.97 09/24/2023 3:06 PM ONLINE MERCHANDISING COORDINATOR Plan of Treatment Health Maintenance Due Date [...] patient's age to complete this topic Insurance [facility] MEDICARE [facility] MEDICARE C [facility] Advance Directives * Full Code (Latest Code Status on File) Date Activated Date Inactivated Comments 09/24/2023 4:08 PM 09/26/2023 3:01 PM CPR-Full Cristiane tment: FULL ARREST: Attempt Resuscitation/CPR wit intubation and mechanical ventilation. PRE-ARREST: Use entire range of life support measures to stabilize the patient. Care Teams Sql Report Developer Relationship Specialty Start Date End Date Provider, Not On File [place] PCP - General 09/26/23
--- OUTSIDE RECORDS SUMMARY | 2025-01-05 16:44 | XMS_ITS | Clinical Summary ---
Author Organization [facility] Address [address] [place] [address] Care Team Providers Care Belting Cutter Name Role Phone Ruddy Yang MD Primary Care Provider [phone] Source Comments [facility],non-owned Affiliates and Associated Physician Practices is amultiple site organization consisting of ambulatory clinics and hospital sitesin [place], [place], [place] and [place]. This disclosure is being madepursuant to the Care Everywhere program and may not contain all information available regarding this patient. Last updated 18.[facility] Medications * Be aware that medications may not be up to date on this document. Alwaysverify current medications with the patient. atorvastatin (Lipitor) 40 MG tablet Take 1 [...] at Not on file Legal Sex Male 6:41 PM STRATEGY ASSOCIATE Gender Identity Not on file Sexual Orientation [...] 2016 COVID-19 VACCINE ( - season) 2024 DEPRESSION SCREENING 08/26/2024 MEDICARE AWV CALENDAR YEAR 2024 INFLUENZA VACCINE (Season Ended) 2025 05/21/2022, 06/21/2020, 05/26/2019, Additional history exists HEPATITIS B VACCINE Aged Out No longe [...] patient's age to complete this topic Insurance MEDICARE [facility] MEDICARE MEDICARE SELF PAY NO INSURANCE Member Subscriber Plan / Payer (Ef fective for All Dates) Name:Elida Davidson Naty Member ID:Not on file Relation to Subscriber:Not on file Name:ELIDA DAVIDSON Subscriber ID:Not on file (Home) Address: [address] [place] [address] Payer ID:Not on file Group ID:Not on file Type:Self Pay Address: [facility] MANAGED MEDICARE ADV * Guarantor: ELIDA DAVIDSON Account Type Relation to Patient Date of Phone Billing Address Personal/Family Spouse [id number] [place] [address] SELF PAY NO INSURANCE Member Subscriber Plan / Payer (Ef fective for All Dates) Name:Elida Davidson Naty Member ID:Not on file Relation to Subscriber:Not on file Name:ELIDA DAVIDSON Subscriber ID:Not on file (Home) Address: [address] [place] [address] Payer ID:Not on file Group ID:Not on file Type:Self Pay Address: [place], [place] SELF PAY NO INSURANCE Member Subscriber Plan / Payer (Ef fective for All Dates) Name:Elida Davidson Member ID:Not on file Relation to Subscriber:Not on file Name:ELIDA DAVIDSON Subscriber ID:Not on file (Home) Address: [address] [place] [address] [place] [address] Payer ID:Not on file Group ID:Not on file Type:Self Pay Address: [facility] [place] [address] Care Teams Belting Cutter Relationship Specialty Start Date End Date Ruddy Yang MD PCP - General 07/08/20
[2025-01-05 17:03] LABS: Hematocrit 30.8 % (37.0-46.0); Hemoglobin 9.9 g/dL (12.4-15.3); Mean Corpuscular HGB Conc 32.1 g/dL (32-36); Mean Corpuscular Hemoglobin 33.3 pg (27.0-31.0); Mean Corpuscular Volume 103.7 fL (78.0-102.0); Mean Platelet Volume 10.5 fl (8.7-11.0); Platelet Count Result 121 K/mm3 (150-420); Red Blood Count 2.97 M/mm3 (4.70-6.10); Red Cell Distribution Width 15.4 % (11.6-14.4); White Blood Count 6.5 K/mm3 (4.8-10.8)
[2025-01-05 17:25] LABS: Anion Gap 7 mmol/L (4-12); Blood Urea Nitrogen 30 mg/dL (9-20); Calcium 9.2 mg/dL (8.4-10.2); Carbon Dioxide 28 mmol/L (22-30); Chloride 103 mmol/L (98-107); Estimated Glomerular Filt Rate 40; Glucose 117 mg/dL (65-110); Osmolality Calculated 293 mOsm/kg (285-295); Potassium 4.5 mmol/L (3.4-5.0); Sodium 138 mmol/L (137-145)
[2025-01-05 17:35] LABS: NT Pro B Type Natriuretic Pept 3040 pg/mL (19.9-100)
== END 2025-01-05 16:39 | disposition home or self-care (01) ==
PROVIDERS: PCP Internal Medicine; Visit Provider Internal Medicine
DX: I50.9 Heart failure, unspecified (principal); R53.83 Other fatigue
CPT/HCPCS: 36415; 80048; 83880; 85027

== ENCOUNTER 2025-01-13 10:55 | Emergency (ER) | payer MEDICARE, SELFPAY ==
[2025-01-13] VITALS (11 sets, daily range): BP systolic 123–136; BP diastolic 61–93; PULSE 70–82; RESP 16–20; TEMP 36.1; O2SAT 93–98
--- NOTE | ~2025-01-13 | XR_ITS ---
EXAMINATION: XR chest 1V portable 01/13/2025 12:09 INDICATION: Shortness of breath, cough and CHF PROCEDURE: AP portable chest COMPARISON: Comparison to multiple prior studies sequentially, with oldest reviewed study dated 09/24. FINDINGS: The lungs are clear. The cardiomediastinal silhouette is within normal limits. There are no pleural effusions. There is no pneumothorax suspected. Patient's hand obscures the right lower t horax. Status post median sternotomy for CABG. Pacemaker leads are stable. Minimal left basilar atele ctasis. IMPRESSION: 1: NO ACUTE CARDIOPULMONARY DISEASE. Reviewed, dictated and finalized at location B.
--- NOTE | 2025-01-13 11:19 | ED_ITS ---
HPI - SOB/Dyspnea General Chief Complaint: Shortness of Breath/Dyspnea Stated Complaint: shortness of breath and abnormal labs Time Seen by Provider: 01/13/25 11:16 Source: patient Mode of arrival: ambulatory Limitations: no limitations History of Present Illness HPI Narrative: 84-year-old male, ex-smoker with a history of GERD, hypertension, CAD status post stent status post CABG, AFib on Eliquis, CHF with an EF of 52%, status post TAVR, AAA status post repair, CKD, dyslipidemia, gout, BPH status post TURP, peripheral vascular disease presents to the ED with -- generalized weakness -- patient has been sleeping all day -- low hemoglobin levels based on a recent blood work patient denied any focal neuro deficits. No chest pain or shortness of breath. no paroxysmal nocturnal dyspnea. Dyspnea on exertion. no nausea/ vomiting /abdominal pain or diarrhea. No leg swelling MD elicited complaint: shortness of breath Pertinent past history: COPD and congestive heart failure Onset (ago): day(s) Context: anxiety Timing: intermittent Severity: mild Exacerbating factors: exertion Relieving factors: nothing Known history of: COPD and congestive heart failure Associated symptoms: denies other symptoms Treatment prior to arrival: none Related Data Home oxygen amount: none Home Medications ?Medication ?Instructions ?Recorded ?Confirmed ?Last Taken ?Type aspirin 81 mg tablet,delayed 81 mg PO DAILY 08/17/19 09/24/23 07/04/20 History release (Adult Low Dose Aspirin) atorvastatin 40 mg tablet 40 mg PO DAILY 08/17/19 09/24/23 07/04/20 History carvedilol 12.5 mg tablet (Coreg) 12.5 mg PO Q12H 08/17/19 09/24/23 07/04/20 History pregabalin 100 mg capsule (Lyrica) 100 mg PO TID 08/17/19 09/24/23 07/04/20 History tamsulosin 0.4 mg capsule (Flomax) 0.4 mg PO DAILY 08/17/19 09/24/23 07/04/20 History finasteride 5 mg tablet 5 mg PO DAILY 10/20/19 09/24/23 07/04/20 History furosemide 40 mg tablet 40 mg PO QAM 10/20/19 09/24/23 07/04/20 History allopurinol 100 mg tablet 100 mg PO DAILY 06/28/21 09/24/23 Unknown History trazodone 50 mg tablet 50 mg PO HS PRN Insomnia 09/30/21 09/24/23 Unknown History apixaban 2.5 mg tablet (Eliquis) 2.5 mg PO BID 04/09/23 09/24/23 Unknown History tramadol 50 mg tablet 50 mg PO TID 04/09/23 09/24/23 Unknown History Allergies Allergy/AdvReac Type Severity Reaction Status Date / Time Sulfa (Sulfonamide Allergy Unknown Rash Verified 08/18/24 10:43 Antibiotics) Review of Systems 2 Review of Systems: All systems reviewed & are unremarkable except as noted in HPI and below Constitutional: Constitutional: Reports as per HPI, Reports no additional constitutional complaints and Reports weakness Eyes: Eyes: Reports as per HPI and Reports no additional eye complaints ENT: Reports system reviewed and no additional complaints, except as documented and Reports as per HPI Cardiovascular: Cardiovascular: Reports as per HPI and Reports no additional cardiovascular complaints Respiratory: Respiratory: Reports as per HPI, Reports no additional respiratory complaints and Reports dyspnea Gastrointestinal: Gastrointestinal: Reports as per HPI and Reports no additional gastrointestinal complaints Genitourinary: Genitourinary: Reports no additional male genitourinary complaints and Reports as per HPI Musculoskeletal: Musculoskeletal: Reports no additional musculoskeletal complaints and Reports as per HPI Integumentary/Breasts: Skin/Breast: Reports system reviewed and no additional complaints, except as docu and Reports as per HPI Neurologic: Reports system reviewed and no additional complaints, except as documented and Reports as per HPI Psychiatric: Psychiatric: Reports no additional psychiatric complaints and Reports as per HPI Endocrine: Endocrine: Reports no additional endocrine complaints and Reports as per HPI Hematologic/Lymphatic: Hematologic/Lymphatic: Reports no additional hematologic/lymphatic complaints and Reports as per HPI Allergic/Immunologic: Allergic/Immunologic: Reports no additional allergic/immunologic complaints and Reports as per HPI PMFSH Past Medical History Medical History Chronic GERD BPH (benign prostatic hyperplasia) Acute on chronic blood loss anemia High cholesterol Peripheral neuropathy Myocardial infarction x3 Cardiac defibrillator in place Pacemaker KIARRA (obstructive sleep apnea) Patient stated that he does not Use CPAP PVD (peripheral vascular disease) Hypertension Gout REESE (generalized anxiety disorder) Erectile dysfunction COPD (chronic obstructive pulmonary disease) CKD (chronic kidney disease), stage III CHF (congestive heart failure) CAD (coronary artery disease) Atrial fibrillation AAA (abdominal aortic aneurysm) Surgical History Surgical History History of AAA (abdominal aortic aneurysm) repair AICD (automatic cardioverter/defibrillator) present S/P CABG (coronary artery bypass graft) Four vessel CABG History of coronary artery stent placement 2 stents History of bladder surgery TURB procedure 2009 History of transcatheter aortic valve replacement (TAVR) Status post placement of cardiac pacemaker History of tonsillectomy and adenoidectomy History of aortic valve repair History of hernia repair incisional History of back surgery History of cholecystectomy History of heart valve replacement Family History Family History Father Family history of aortic aneurysm Acute myocardial infarction Mother Parkinsons disease Social History Social History Social History: The patient is and lives with his . The patient stated that he quit smoking many years ago. The patient has 4 children. His is his durable power assistant attorney general for health. He is a former smoker. He denies any alcohol marijuana or illicit drugs. 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 Code status full code Smoking packs per day: 2 Smoking cigarettes per day: 40.0 Years smoked: 45 Smoking pack-years: 90.00 Smoking status: Former smoker Second hand tobacco smoke exposure: No Alcohol intake: former Drinks per week: 3 Substance use: never Substance use type: does not use Lack of Transportation: No Lack of Food: Never True Current Housing: I Have Housing Concerned About Future Housing: No Difficulty Paying Gas/Electric Bills: No Difficulty Paying for Meds: No Currently Unemployed: No Education: Don't Know Difficulty w/ Childcare or Family Care: No Living arrangements: with family Additional living arrangements comments: . 4 Children. Occupation/Education: retired Additional occupation/education comments: Prior Occupation: [employer]. Gender identity (if verbalized by the patient): Male Spiritual care concerns: No Exam 2 Narrative: Vitals are stable. Afebrile. Patient has a paced rhythm. 96% on room air with a respiratory rate of 16. Const: General: no acute distress Orientation/consciousness: patient oriented x3 Limitations: no limitations HENMT: Head: normal to inspection Ears: external ears normal F marisela/Nose/Sinus: Normal external nose present Face and sinus: normal facial exam Mouth: Yes Normal oral and palatal mucosa present Throat: posterior oropharynx normal Eyes: Conjunctivae: conjunctivae normal Pupils: Equal, round and reactive pupils present Direct Ophthalmoscopy: no photophobia Neck: Neck: normal visual inspection, no lymphadenopathy and no meningeal signs Chest: Chest palpation & inspection: normal inspection of the chest Resp: Effort & Inspection: normal respiratory effort Other: Few basilar rales Cardio: Rate: regular rate Rhythm: regular rhythm GI: GI Palp: Yes Soft to palpation Auscultation: normal bowel sounds O ther: no tenderness/ rigidity /rebound : General: Yes no CVA tenderness Back/Spine/Pelvis: Back: no CVA tenderness Skin: General skin exam: normal color Rashes: no rashes Wounds: no wounds Neuro: General: patient oriented x3, moves all extremities, no meningeal signs, no focal motor deficits and CN's II-XI intact bilaterally Cranial nerves: Yes Nystagmus not present Speech: normal speech Gait exam (Neuro): Normal gait present Extrem: General: normal to inspection and no clubbing, cyanosis or edema Psych: Mental Status: mental status grossly normal Affect: Anxious affect present Attitude: cooperative Course Course Emergency Course: generalized weakness anemia with an H&H of 8.6/26.7 dyspnea on exertion-- chronic acute on chronic renal failure with a BUN/creatinine of 34/1.85 compensated CHF lactic acid is elevated at 2.5 but the patient would not be a candidate for IV fluids in view of the CHF Vital Signs Vital signs: Vital Signs Temperature 36.1 C L 01/13/25 10:55 Pulse Rate 70 01/13/25 10:55 Respiratory Rate 20 01/13/25 10:55 Blood Pressure 125/61 01/13/25 10:55 Pulse Oximetry 98 01/13/25 10:55 Oxygen Delivery Room Air 01/13/25 10:55 Temperature 36.1 C L 01/13/25 10:55 Pulse Rate 70 01/13/25 12:10 Respiratory Rate 19 01/13/25 12:10 Blood Pressure 127/76 01/13/25 12:10 Pulse Oximetry 98 01/13/25 12:10 Oxygen Delivery Room Air 01/13/25 11:00 MDM - SOB/Dyspnea MDM Narrative Medical decision making narrative: anemia acute on chronic renal failure compensated CHF Differential Diagnosis Differential diagnosis: Likely congestive heart failure and community acquired pneumonia Medical Records Attestation: I reviewed the patient's medical records. Lab Data Attestation: I reviewed the patient's lab results. 01/13/25 12:00 01/13/25 12:00 Labs: Lab Results 01/13/25 Range/Units 12:00 WBC 5.2 (4.8-10.8) K/mm3 RBC 2.62 L (4.70-6.10) M/mm3 Hgb 8.6 L (12.4-15.3) g/dL Hct 26.7 L (37.0-46.0) % MCV 101.9 (78.0-102.0) fL MCH 32.8 H (27.0-31.0) pg MCHC 32.2 (32-36) g/dL RDW 15.3 H (11.6-14.4) % Plt Count 106 L (150-420) K/mm3 MPV 9.9 (8.7-11.0) fl Immature Gran % (Auto) 0.2 H (0.0-0.0) % Neut % (Auto) 67.6 (50.0-70.0) % Lymph % (Auto) 16.5 L (18.0-42.0) % [place] % (Auto) 13.2 H (2.0-11.0) % Eos % (Auto) 2.1 (1.0-6.0) % Baso % (Auto) 0.4 (0.0-1.0) % Lymph # (Auto) 0.85 L (1.10-4.50) K/mm3 [place] # (Auto) 0.68 (0.10-0.90) K/mm3 Eos # (Auto) 0.11 (0.02-0.50) K/mm3 Baso # (Auto) 0.02 (0.00-0.10) K/mm3 Abs Immat Gran (auto) 0.01 H (0.00-0.00) K/mm3 Absolute Neuts (auto) 3.49 (1.70-7.20) K/mm3 Absolute Nucleated RBC 0.00 (0.00-0.00) K/mm3 Nucleated RBC % 0.0 (0-0.0) % Sodium 139 (137-145) mmol/L Potassium 4.6 (3.4-5.0) mmol/L Chloride 104 (98-107) mmol/L Carbon Dioxide 26 (22-30) mmol/L Anion Gap 9 (4-12) mmol/L BUN 34 H (9-20) mg/dL Creatinine 1.85 H (0.7-1.3) mg/dL Estim Creat Clear Calc 27 ml/min Estimated GFR 35 L (59 - ) Glucose 141 H (65-110) mg/dL Calculated Osmolality 297 H (285-295) mOsm/kg Lactic Acid 2.5 H (0.4-2.0) mmol/L Calcium 9.2 (8.4-10.2) mg/dL Iron 38 L (49-181) ug/dL TIBC Pending % Saturation Pending Ferritin Pending Total Bilirubin 0.9 (0.2-1.3) mg/dL AST 28 (17-59) U/L ALT 18 (6-50) U/L Alkaline Phosphatase 38 (38-126) U/L Troponin I 0.021 (0.000-0.034) ng/mL NT-Pro-B Natriuret Pep 3150 H (19.9-100) pg/mL Total Protein 7.1 (6.3-8.2) g/dL Albumin 4.3 (3.5-5.1) g/dL Vitamin B12 Pending RBC Folate Pending TSH Pending ECG Data EKG #1: ECG completion date: 01/13/25 ECG completion time: 12:02 Interpretation: paced rhythm Discharge Plan Discharge Clinical Impression: Acute on chronic renal failure Qualifiers: Acute renal failure type: unspecified Chronic kidney disease stage: stage 4 (GFR 15-29) Qualified Code(s): N17.9 - Acute kidney failure, unspecified Anemia due to chronic kidney disease Qualifiers: Chronic kidney disease stage: unspecified stage Qualified Code(s): N18.9 - Chronic kidney disease, unspecified Patient Disposition: Home Condition: Stable Instructions: Antibiotic Form, Chronic Kidney Disease Diet (DC), Anemia (ED) Additional Instructions: follow-up with primary care physician for anemia workup Patient Language: Cape Verdean Prescriptions: No Action allopurinol 100 mg tablet 100 mg PO DAILY trazodone 50 mg tablet 50 mg PO HS PRN (Reason: Insomnia) tramadol 50 mg tablet 50 mg PO TID Eliquis 2.5 mg tablet 2.5 mg PO BID furosemide [Lasix] 40 mg tablet 40 mg PO DAILY Qty: 3 0RF Rx Instructions: Additional dosage for 3 days tamsulosin [Flomax] 0.4 mg capsule 0.4 mg PO DAILY atorvastatin 40 mg tablet 40 mg PO DAILY pregabalin [Lyrica] 100 mg capsule 100 mg PO TID aspirin [Adult Low Dose Aspirin] 81 mg tablet,delayed release (DR/EC) 81 mg PO DAILY carvedilol [Coreg] 12.5 mg tablet 12.5 mg PO Q12H finasteride 5 mg tablet 5 mg PO DAILY furosemide 40 mg tablet 40 mg PO QAM pantoprazole [Protonix] 40 mg tablet,delayed release (DR/EC) 40 mg PO QAM 56 Days Qty: 56 0RF potassium chloride 20 mEq tablet extended release 40 meq PO DAILY Qty: 180 0RF Follow-up/Referrals: Ruddy Yang MD [Primary Care Provider] - Time of Disposition: 12:51
--- OUTSIDE RECORDS SUMMARY | 2025-01-13 11:31 | XMS_ITS | Data Portability ---
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 Plan of Treatment [...] By Organization Details Last Modified Time 08/06/2024 [id number] it is unknown whether not he will pass his cardiac clearance and his son is concerned about the risk were dean in any case. We will set up open reduction nasal fracture until a [facility] Not available 08/06/2024 12:42:45 Reason for Referral None Reported. Problems Name Problem SNOMED Code Status Onset Date Resolution Date Notes Provider Name and Address Organization Details Recorded Time Closed fracture of nasal bones 36198036 Active 024 Glen Mayen MD [address], [address] , [facility] 12:42:25 Problem Notes None recorded. Procedures Surgical History Date Name Laterality Status Provider Name and Address Organization Details Recorded Time 08/26/19 13 cholecystectomy completed Malorie Elizabeth RN [facility] 08/06/2024 17:58:37 Imaging Results None recorded. Procedure Notes None recorded. Medical Equipment None Reported. Allergies Allergen ID Allergen Name Allergen Category Reaction Reaction Severity Criticality Documentation Date Start Date Code Code System Note Provider Name and Address Organization Details Recorded Time 72499 Oxycontin medicatio n Not available Not available Not available 08/06/2024 23300 6 RxNorm Malorie Elizabeth RN null, [place] - [facility] 4 12:26:30 Medications Name Sig Start Date [...] Address Organization Details Last Updated DateTime 08/06/2024 45167.92 g 26.4 kg/m2 172.72 cm 98 [degF] Malorie Elizabeth RN [facility] 08/06/2024 12:24:19 Social History None recorded. Functional Status Question Answer Note LastModified by Organizat ion Details LastModified Time What is your level of alcohol consumption? Occasional [email or web address] Information not available 08/06/2024 Mental Status None recorded. Family History Relationship Description Onset Age of this Age Resolved Age Notes LastModified by Organization Details LastModified Time Father No current problems or disability [email or web address] Not available 08/06 12:20:50 Mother No current problems or disability [email or web address] Not available 08/06 12:20:50 Notes:NO ENT Medical History Condition Response PACEMAKER Y HEART DISEASE/HEART PROBLEMS Y HYPERTENSION Y Past Encounters Encounter ID Performer Location Encounter Start Date Encounter Closed Date Diagnosis/Indication Diagnosis SNOMED-CT Code Diagnosis ICD10 Code Diagnosis Note [id number] Glen Mayen MD [facility] [address] [place] [address] 08/06/2024 11:56:02 08/20/2024 10:43:43 Closed fracture of nasal bones 45765725 S02.2XXA Health Concerns Section Related Observation LastModified by Organization Detai ls LastModified Time None Recorded Concern Status LastModified by Organization Details LastModified Time None Recorded Advance Directives Directive None Recorded Payers Encounter Date Sequence Insurance Name Policy Number Policy De Jesus Covered Member ID De Jesus Member ID Guarantor Name 08/06/2024 1 [facility] (MEDICARE REPLACEMENT/A DVANTAGE - HMO) [id number] Jovan Rodas [id number] Jovan Rodas Notes Date Note Type Note Provider Name and Address Organization Details Recorded Time 08/06/2024 text/html This patient fel l and fractured his nose. There is a prominent external visible displacement of his nasal bones. He does have a significant cardiac history. Glen Mayen MD [address] [place] [address], [place] [address], [place], [address], [facility] 08/06/2024 12:43:01
--- OUTSIDE RECORDS SUMMARY | 2025-01-13 11:31 | XMS_ITS | Clinical Summary ---
Author Organization [facility] Address [address] [place] [id number] Phone Care Team Providers Care Director Of Catering Sales Name Role Phone Ruddy Yang MD Primary Care Provider [phone] Allergies Active Allergy Reactions Criticality Noted Date [...] Ended) 2025 04/26/20 15, 06/26/2014 Insurance MEDICARE [facility] Care Teams Director Of Catering Sales Relationship Specialty Start Date End Date Ruddy Yang MD [address] [place] [address] PCP - General Internal Medicine 12/19/20
--- OUTSIDE RECORDS SUMMARY | 2025-01-13 11:31 | XMS_ITS | Clinical Summary ---
Author Organization [facility] [address] [facility] [address] Address [address] [place] [address] Care Team Providers Care Building Insulation Supervisor Name Role Phone Ruddy Yang MD Primary Care Provider [phone] Allergies Active Allergy Reactions Criticality Noted Date [...] 0 4 Active allopurinoL (ZYLOPRIM) 100 mg tabletIndication s:prevention of acute gout attack Take 1 tablet (100 mg total) by mouth every morning Active atorvastatin (LIPITOR) 40 mg tabletIndication s:hyperlipidemia Take 1 tablet (40 mg total) by mouth nightly Active pregabalin (LYRICA) 100 mg capsuleIndicatio ns:PAIN [...] ER 10 mEq CR capsule Take 1 tablet/capsul e (10 mEq total) by mouth counterintelligence/humint specialist before breakfast [address] (CYMBALTA) 60 mg capsule Take 1 capsule (60 mg total) by mouth daily 4 Active nortriptyline (PAMELOR) 10 mg capsule TAKE TWO CAPSULES BY MOUTH AT BEDTIME 4 Active furosemide (LASIX) 20 mg tabletIndication s: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 heart failure (HCC) Take 1 tablet (20 mg total) by mouth daily 30 tablet 11 5 01/08/20 26 Active furosemide (LASIX) 40 mg tabletIndication s:Edema,hyperten bobby Take 1 tablet (40 mg total) by mouth daily 01/08/20 25 Discontin ued(Thera py completed ) Active Problems Problem Noted Date Diagnosed Date Elective replacement of impl antable cardioverter-defibrillator (ICD) battery required 10/01/2023 Sensorineural hearing loss (SNHL) of both ears 1 09/02/2022 Assessment & Plan (07/03/2023 10:35 AM AWNING FRAME MAKER): Hearing test Flonase 2 sprays into each [...] 07/03/2023 Assessment & Plan (07/03/2023 10:35 AM AWNING FRAME MAKER): Hearing test Flonase 2 sprays into each [...] (07/11/2022): Added automatically from request for surgery [id number] Pain associated with wound 06/28/2022 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 Dx; CHF, SSS. Afib, AV Node Ablation. DOI 10/28/2023- Lynette. Chronic leads 05/25/2015. Anselmo remote monitoring. LV lead is a Medtronic lead and therefore the device is Not MRI conditional d/t Green & Grow products. Dr Jovan Beltran-original device implanter in 2014. Osteoarthritis of lumbar spine 08/10/2015 Hypertension 01/29/2014 Overview (11/30/2016): High blood pressure Chronic coronary artery disease 01/29/2014 Overview (11/30/2016): Coronary artery disease Chronic obstructive pulmonary disease 01/29/2014 Overview (11/30/2016): COPD Hypercholesterolemia 01/29/2014 Overview (11/30/2016): High cholesterol Lumbago 02/04/2009 Encounters Date Type Department Care Team Description 01/07/2025 1:00 PM CDT Office Visit [facility] Card[facility] [address] [place] [phone] Kary Rayo NP 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 heart failure (HCC) (Primary Dx); 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; Chronic coronary artery disease; Permanent atrial fibrillation (HCC); Primary hypertension; Hypercholesterolemia; S/P TAVR (transcatheter aortic valve replacement) 01/06/2025 Orders Only [facility] [address] [place] [address] [place] [phone] Iker Ponce MD 01/04/2025 8:00 AM CDT Ancillary Procedure [facility] [address] [place] [address] [place] [phone] ICD (implantable cardioverter-defibrilla tor) in place; Permanent atrial fibrillation (HCC); 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; S/P AV josué ablation; Congestive heart failure, unspecified HF chronicity, unspecified heart failure type (HCC) 01/04/2025 Telephone [facility] [address] [place] [address] [address] [place] [phone] Jarett Yousif MD 12/30/2024 10:00 AM CDT Ancillary Procedure [facility] [address] [place] [address] [place] [phone] Longstanding persistent atrial fibrillation (HCC); SSS (sick sinus syndrome) (HCC); Congestive heart failure, unspecified HF chronicity, unspecified heart failure type (HCC); 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; History of atrioventricular josué ablation 12/30/2024 Orders Only [facility] [address] [place] [address] [place] [phone] Jarett Yousif MD ICD (implantable cardioverter-defibrilla tor) in place (Primary Dx); Permanent atrial fibrillation (HCC); 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; S/P AV josué ablation; Congestive heart failure, unspecified HF chronicity, unspecified heart failure type (HCC) 12/29/2024 Telephone [facility] [address] [place] [address] [place] [phone] Jarett Yousif MD 12/04/2024 11:30 AM CDT Office Visit [facility] [address] [place] [address] [place] [phone] Letitia Kumar NP Coronary artery disease of [place] heart with stable angina pectoris, unspecified vessel or lesion type (Primary Dx); 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; Permanent atrial fibrillation (HCC); Chronic anticoagulation 11/24/2024 8:45 AM CDT Ancillary Procedure [facility] [address] [place] [address] [place] [phone] 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 (Primary Dx); Cardiomyopathy, unspecified type (HCC); SSS (sick sinus syndrome) (HCC); Permanent atrial fibrillation (HCC); Congestive heart failure, unspecified HF chronicity, unspecified heart failure type (HCC) 11/09/2024 8:45 AM CDT Office Visit [facility] [address] [place] [address] Jarett Yousif MD Biventricular ICD (implantable cardioverter-defibrilla [...] on file Legal Sex Male 1:59 AM AWNING FRAME MAKER Gender Identity Not on file Sexual Orientation Not on file Obstetrics History Last Filed Vital Signs Vital Sign Reading Time Taken Comments Blood Pressure 122/70 01/07/2025 12:35 PM CDT Pulse 71 01/07/2025 12:35 PM CDT Temperature 36.1 C (97 F) 10/28/2023 1:26 PM AWNING FRAME MAKER Respiratory Rate 14 01/07/2025 12:35 PM CDT Oxygen Saturation 95% 01/07/2025 12:35 PM CDT Inhaled Oxygen Concentration - - Weight 76.2 kg (168 lb) 01/07/2025 12:35 PM CDT Height 172.7 cm (5' 8 ) 01/07/2025 12:35 PM CDT Body Mass Index 25.54 01/07/2025 12:35 PM CDT Plan of Treatment Health Maintenance Due [...] 06/28/2030 06/28/2020 Medical Devices Implanted Type Area Commodity Management Specialist Device Identifier Shelf Expiration Date Model / Serial / Lot Icd ICD Heart Pacemaker Pacemaker Heart Description:PACEMAKER/ICD Stent Implanted:Qty: 2 Stent Heart Yo Vascular Defib Cardiac [id number] [place] Hf Df4 Is-4 Is-1 Cnctr [id number] - [id number] - [id number] Implanted:Qty: 1 on 10/28/2023 by Eric Ojeda MD at [facility] Vascular 08/25/2025 [id number] / [id number] / Procedures Procedure Name Priority Date/Time Associated Diagnosis Comments BMP - BASIC METABOLIC PANEL (7) Routine 01/05/2025 9:41 AM CDT DEVICE CHECK - REMOTE Routine 01/04/2025 1:06 PM CDT ICD (implantable cardioverter-defibrillat or) in place Permanent atrial fibrillation (HCC) Biventricular ICD (implantable cardioverter-defibrillat or) in place S/P AV josué ablation Congestive heart failure, unspecified HF chronicity, unspecified heart failure type (HCC) DEVICE CHECK - IN OFFICE Routine 12/30/2024 9:48 AM CDT Longstanding persistent atrial fibrillation (HCC) SSS (sick sinus syndrome) (HCC) Congestive heart failure, unspecified HF chronicity, unspecified heart failure type (HCC) Biventricular ICD (implantable cardioverter-defibrillat or) in place History of atrioventricular josué ablation DEVICE CHECK - REMOTE Routine 11/24/2024 10:05 AM CDT Cardiomyopathy, unspecified type (HCC) SSS (sick sinus syndrome) (HCC) Permanent atrial fibrillation (HCC) from Last 3 Months Results * BMP - Basic Metabolic Panel (7) (01/05/2025 9:41 AM CDT) us Historical Provider LAB BLOOD ORDERABLES Lucia l Result * DEVICE CHECK - REMOTE (01/04/2025 1:06 PM CDT) Anatomical Region Laterality Modality Other Narrative 01/08/2025 10:41 AM CDT Yo [place] BIV ICD. Dx; CHF, SSS. Afib, AV Node Ablation. DOI 10/28/2023-Lynette. Chronic leads 05/25/2015. Sav remote monitoring. Unscheduled remote due to patient symptoms of sleeping a lot an unsteady gait. Patient was seen in the clinic for [...] Lasix, potassium, amongst others. See scanned report. Anselmo remote follow-up 04/06/2025. ROV with Dr. Yousif 05/20/2025. Ning Johansen RN Jarett Yousif MD CV CARDIAC SERVICES PROC EDURES Final Result * DEVICE CHECK - IN OFFICE (12/30/2024 9:48 AM CDT) Anatomical Region Laterality Modality Other Narrative 01/08/2025 10:39 AM CDT Yo [place] BIV ICD. Dx; CHF, SSS. Afib, AV Node Ablation. DOI 10/28/2023-Santiago. Chronic leads 05/25/2015. Sav remote monitoring. LV lead is a Medtronic lead and therefor the device is Not MRI conditional d/t Green [employer] Grow products. Supervising MD: Dr Whittaker. Left pectoral incision well approximated without redness, drainage, or edema noted. Weight 166.4 lbs. HR 62 bpm. Interrogation of VVI Pacemaker/ICD demonstrated appropriate device function. Battery function-Ok, 7.1 years remaining battery longevity to AMMON. Charge time-9.1 seconds. Appropriate lead measurements noted. Presenting rhythm-Aflutter Vsensed. Underlying rhythm-Aflutter. AP-<0.1%, RVP-38%, LVP=38%. No Ventricular tachy arrhythmias recorded. Medications; Eliquis, Coreg. Reprogrammed to DDDR. (All atrial parameters turned on). Auto mode switch v-triggering turned on. Sync AV turned on with a fixed delta @-40 ms. All changes made to increase BIV % pacing. Will continue to monitor BIV % pacing on the web site. See scanned report. Office device f/u to be determined based on patient's response to today's adjustments. Sav remote f/u 04/06/2025. Ning Johansen RN Jarett Yousif MD CV CARDIAC SERVICES PROC EDURES Final Result * DEVICE CHECK - REMOTE (11/24/2024 10:05 AM CDT) Anatomical Region Laterality Modality Other Narrative 12/03/2024 8:25 AM CDT Scuttledog BIV ICD. Dx; CHF, SSS. Afib, AV Node Ablation. DOI 10/28/2023-Lynette. Chronic leads 05/25/2015. Anselmo remote monitoring. LV lead is a Credoraxtronic lead and therefore the device is Not MRI conditional d/t Green & Grow products. Dr Jovan Beltran-original device implanter in [...] mg, Follow up: Office Pacemaker/ICD scheduled 12/30/24 Anselmo remote 4 months Capo Wade RN Jarett Yousif MD CV CARDIAC SERVICES PROC EDURES Final Result from Last 3 Months Insurance [facility] MEDICARE [facility]ANT[facility] MEDIC[facility] Address: [address] [address] [place] [address] MEDICARE FORMERLY [facility] MEDICARE ADVANTAGE [facility]IC[facility] Address: [address] [address] [place] [address] [facility] MEDICARE ADVANTAGE [facility] Address: [facility] [address] [place] [address] Care Teams Building Insulation Supervisor Relationship Specialty Start Date End Date Ruddy Yang MD [address] [place], [place] [id number] PCP - General Internal Medicine 01/02/21
--- OUTSIDE RECORDS SUMMARY | 2025-01-13 11:31 | XMS_ITS | Referral Summary ---
Author Organization [place] [address] [place] [phone] Care Team Providers Care Processing Rep Name Role Phone Ruddy Yang MD Primary Care Provider [phone] Encounters Date Type Department Care Team Description 01/07/2025 1:00 PM CDT Office Visit [facility] Cardiology [address] [place] [address] [place] [phone] Kary Rayo NP 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 heart failure (HCC) (Primary Dx); 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; Chronic coronary artery disease; Permanent atrial fibrillation (HCC); Primary hypertension; Hypercholesterolemia; S/P TAVR (transcatheter aortic valve replacement) 01/06/2025 Orders Only [address] [phone] Iker Ponce MD 01/04/2025 8:00 AM CDT Ancillary Procedure [address] [place] [phone] ICD (implantable cardioverter-defibrilla tor) in place; Permanent atrial fibrillation (HCC); 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; S/P AV josué ablation; Congestive heart failure, unspecified HF chronicity, unspecified heart failure type (HCC) 01/04/2025 Telephone [place] [address] [place] [phone] Jarett Yousif MD 12/30/2024 Orders Only [facility] Cardiology [address] [place] [address] [place], [place] [address] [place] [phone] Jarett Yousif MD ICD (implantable cardioverter-defibrilla tor) in place (Primary Dx); Permanent atrial fibrillation (HCC); 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; S/P AV josué ablation; Congestive heart failure, unspecified HF chronicity, unspecified heart failure type (HCC) 12/30/2024 10:00 AM CDT Ancillary Procedure [facility] Card[facility] [address] [place] [address] [place] [phone] Longstanding persistent atrial fibrillation (HCC); SSS (sick sinus syndrome) (HCC); Congestive heart failure, unspecified HF chronicity, unspecified heart failure type (HCC); 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; History of atrioventricular josué ablation 12/29/2024 Telephone [facility] [address] [place] [address] [place] [phone] Jarett Yousif MD 12/04/2024 11:30 AM CDT Office Visit [facility] Cardiology [address] [place] [address] [place] [phone] Letitia Kumar NP Coronary artery disease of [place] heart with stable angina pectoris, unspecified vessel or lesion type (Primary Dx); 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; Permanent atrial fibrillation (HCC); Chronic anticoagulation 11/24/2024 8:45 AM CDT Ancillary Procedure [facility] [address] [place] [address] [place] [address] [place] [phone] 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 (Primary Dx); Cardiomyopathy, unspecified type (HCC); SSS (sick sinus syndrome) (HCC); Permanent atrial fibrillation (HCC); Congestive heart failure, unspecified HF chronicity, unspecified heart failure type (HCC) 11/09/2024 8:45 AM CDT Office Visit [facility] [address] [place] [address] Jarett Yousif MD Biventricular ICD [...] tablet/capsul e (10 mEq total) by mouth early breastfeeding care specialist before breakfast [address] [...] 09/02/2022 Assessment & Plan (07/03/2023 10:35 AM JUNIOR ELECTRICAL ENGINEER): Hearing test Flonase 2 sprays into [...] 07/03/2023 Assessment & Plan (07/03/2023 10:35 AM JUNIOR ELECTRICAL ENGINEER): Hearing test Flonase 2 sprays into [...] (07/11/2022): Added automatically from request for surgery [id number] Pain associated with wound 06/28/2022 S/P TAVR (transcatheter aortic valve replacement ) 05/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 Dx; CHF, SSS. Afib, AV Node Ablation. DOI 10/28/2023- Lynette. Chronic leads 05/25/2015. Triloq remote monitoring. LV lead is a Medtronic lead and therefore the device is Not MRI conditional d/t Kynogon products. Dr Jovan Beltran-original device implanter in [...] on file Legal Sex Male 1:59 AM JUNIOR ELECTRICAL ENGINEER Gender Identity Not on file Sexual Orientation Not on file Last Filed Vital Signs Vital Sign Reading Time Taken Comments Blood Pressure 122/70 01/07/2025 12:35 PM CDT Pulse 71 01/07/2025 12:35 PM CDT Temperature 36.1 C (97 F) 10/28/2023 1:26 PM JUNIOR ELECTRICAL ENGINEER Respiratory Rate 14 01/07/2025 12:35 PM CDT Oxygen Saturation 95% 01/07/2025 12:35 PM CDT Inhaled Oxygen Concentration - - Weight 76.2 kg (168 lb) 01/07/2025 12:35 PM CDT Height 172.7 cm (5' 8 ) 01/07/2025 12:35 PM CDT Body Mass Index 25.54 01/07/2025 12:35 PM CDT Plan of Treatment Not on file Medical Devices Implanted Type Area Test Kitchen Home Economist Device Identifier Shelf Expiration Date Model / Serial / Lot Icd ICD Heart Pacemaker Pacemaker Heart Description:PACEMAKER/ICD Stent Implanted:Qty: 2 Stent Heart Yo Vascular Defib Cardiac [id number] [place] Hf Df4 Is-4 Is-1 Cnctr [id number] - [id number] - [id number] Implanted:Qty: 1 on 10/28/2023 by Eric Ojeda MD at [facility] Yo Vascular 08/25/2025 [id number] / [id number] / Procedures Procedure Name Priority Date/Time Associated [...] Other Narrative 01/08/2025 10:41 AM CDT Yo [place] BIV ICD. Dx; CHF, SSS. Afib, AV Node Ablation. DOI 10/28/2023-Lynette. Chronic leads 05/25/2015. [place]urant remote monitoring. Unscheduled remote due to patient [...] Lasix, potassium, amongst others. See scanned report. Bondurant remote follow-up 04/06/2025. ROV with Dr. Yousif 05/20/2025. Ning Johansen, RN Jarett Yousif MD CV CARDIAC SERVICES PROC EDURES Final Result * DEVICE CHECK - IN OFFICE (12/30/2024 9:48 AM CDT) Anatomical Region Laterality Modality Other Narrative 01/08/2025 10:39 AM CDT Yo [place] BIV ICD. Dx; CHF, SSS. Afib, AV Node Ablation. DOI 10/28/2023-Santiagoanda. Chronic leads 05/25/2015. Bondurant remote monitoring. LV lead is a Medtronic lead and therefor the device is Not MRI conditional d/t Kynogon products. Supervising MD: Dr Whittaker. Left pectoral [...] Modality Other Narrative 12/03/2024 8:25 AM CDT Axiom Education BIV ICD. Dx; CHF, SSS. Afib, AV Node Ablation. DOI 10/28/2023-Lynette. Chronic leads 05/25/2015. Bondurant remote monitoring. LV lead is a OpenLabel lead and therefore the device is Not MRI conditional d/t Kynogon products. Dr Jovan Beltran-original device implanter in [...] mg, Follow up: Office Pacemaker/ICD scheduled 12/30/24 Bondurant remote 4 months Capo Wade RN Jarett Yousif MD CV CARDIAC SERVICES PROC EDURES Final Result from Last 3 Months Insurance [facility] MEDICARE ADVANTAGE MEDICARE FOR[facility]LY [facility] MEDIC[facility] ADVANTAGE UHC MEDICARE ADVANTAGE Care Teams Processing Rep Relationship Specialty Start Date End Date Ruddy Yang MD [address] [place] [address] PCP - General Internal Medicine 01/02/21
--- OUTSIDE RECORDS SUMMARY | 2025-01-13 11:31 | XMS_ITS | Clinical Summary ---
Author Organization [facility] Address [address] [place] [address] Care Team Providers Care Artist Color Separation Name Role Phone Ruddy Yang MD Primary Care Provider [phone] Source Comments [facility],non-owned Affiliates and Associated Physician Practices is amultiple site organization consisting of ambulatory clinics and hospital sitesin [place], [place], [place] and [place]. This disclosure is being madepursuant to the Care Everywhere program and may not contain all information available regarding this patient. Last updated 18.[facility] Medications * Be aware that medications may [...] on file Legal Sex Male 6:41 PM HYDRATOR Gender Identity Not on file Sexual Orientation [...] age to complete this topic Insurance MEDICARE [facility] MEDICARE MEDICARE SELF PAY NO INSURANCE Member Subscriber Plan / Payer (Ef fective for All Dates) Name:Elida Davidson Naty Member ID:Not on file Relation to Subscriber:Not on file Name:ELIDA DAVIDSON Subscriber ID:Not on file (Home) Address: [address] [place] [address] Payer ID:Not on file Group ID:Not on file Type:Self Pay Address: [facility] MANAGED MEDICARE ADV * Guarantor: ELIDA DAVIDSON Account Type Relation to Patient Date of Phone Billing Address Personal/Family Spouse [address] [place] [address] SELF PAY NO INSURANCE Member Subscriber Plan / Payer (Ef fective for All Dates) Name:Elida Davidson Naty Member ID:Not on file Relation to Subscriber:Not on file Name:ELIDA DAVIDSON Subscriber ID:Not on file (Home) Address: [address] [place] [address] Payer ID:Not on file Group ID:Not on file Type:Self Pay Address: [place] SELF PAY NO INSURANCE Member Subscriber Plan / Payer (Ef fective for All Dates) Name:Elida Davidson Member ID:Not on file Relation to Subscriber:Not on file Name:ELIDA DAVIDSON Subscriber ID:Not on file (Home) Address: [address] [place] [address] [place] [address] Payer ID:Not on file Group ID:Not on file Type:Self Pay Address: [facility] MANAGED MEDICARE ADV Care Teams Artist Color Separation Relationship Specialty Start Date End Date Ruddy Yang MD PCP - General 07/08/20
--- OUTSIDE RECORDS SUMMARY | 2025-01-13 11:31 | XMS_ITS | Clinical Summary ---
Author Organization [facility] Address [address], [facility] [address] [place] [address] Phone Care Team Providers Care Atg Architect Name Role Phone Provider, Not On File [...] drink = 0.6 oz pur e alcohol) [facility] Utilities Answer Date Recorded In the past 12 months has [employer], [employer], or water [employer] threatened to shut off services in your home? Patient declined 09/24/2023 Social Connection and Isolation Panel [NHANES] A nswer Date Recorded In a typical week, how many times do you talk on the phone with family, friends, or neighbors? Patient declined 09/24/2023 How often do you get togethe r with friends or relatives? Patient declined 09/24/2023 How often do you attend yarsani or jewish serv ices? Patient declined 09/24/2023 Do you belong to any clubs o r organizations such as yarsani groups, unions, fraternal or athletic groups, or [...] Answer Date Recorded PHQ-2 Score 0 04/27/2019 [facility] of Occupat ional [facility] - Occupational Stress Questionnaire Answer Date [...] place to sleep or slept in a senior care (including now)? Patient declined 09/24/2023 Sex and Gender Information Value Date Recorded Sex Assigned at Not on file Legal Sex Male 2:21 PM EMPLOYEE REPRESENTATIVE Gender Identity Not on file Sexual Orientation Not on file Last Filed Vital Signs Vital Sign Reading Time Taken Comments Blood Pressure 150/84 09/26/2023 8:00 AM EMPLOYEE REPRESENTATIVE Pulse 74 09/26/2023 8:00 AM EMPLOYEE REPRESENTATIVE Temperature 35.9 C (96.7 F) 09/26/2023 8:33 AM EMPLOYEE REPRESENTATIVE Respiratory Rate 20 09/26/2023 8:00 AM EMPLOYEE REPRESENTATIVE Oxygen Saturation 97% 09/26/2023 8:0 0 AM EMPLOYEE REPRESENTATIVE Inhaled Oxygen Concentration - - Weight 77.5 kg (170 lb 12.8 oz) 09/26/2023 5:55 AM EMPLOYEE REPRESENTATIVE daily weight Height 172.7 cm (5' 8 ) 09/24/2023 3:06 PM EMPLOYEE REPRESENTATIVE Body Mass Index 25.97 09/24/2023 3:06 PM EMPLOYEE REPRESENTATIVE Plan of Treatment Health Maintenance Due Date [...] patient's age to complete this topic Insurance [facility] MEDICARE [facility] MEDICARE C [facility] Advance Directives * Full Code (Latest Code Status on File) Date Activated Date Inactivated Comments 09/24/2023 4:08 PM 09/26/2023 3:01 PM CPR-Full Cristiane tment: FULL ARREST: Attempt Resuscitation/CPR wit intubation and mechanical ventilation. PRE-ARREST: Use entire range of life support measures to stabilize the patient. Care Teams Atg Architect Relationship Specialty Start Date End Date Provider, Not On File [place] PCP - General 09/26/23
--- OUTSIDE RECORDS SUMMARY | 2025-01-13 11:31 | XMS_ITS | Clinical Summary ---
Author Organization [facility] Address [address] [facility] [place] [address] Phone Care Team Providers Care Orthotic Aide Name Role Phone Unavailable Primary Care Provider [...] daily. Active fluticasone propionate (FLONASE) 50 mcg/spray [place], Suspension nasal inhaler Administer 2 Sprays in each nostril daily. Active ipratropium bromide (ATROVENT) 42 mcg (0.06 %) [place], Non-Aerosol Administer 2 Sprays in each nostril [...] on file Legal Sex Male 11:34 AM DECISION ANALYST Gender Identity Not on file Sexual Orientation Not on file Last Filed Vital Signs Vital Sign Reading Time Taken Comments Blood Pressure 140/77 10/22/2022 10:05 AM DECISION ANALYST Pulse 70 10/22/2022 10:01 AM DECISION ANALYST Temperature 35.7 C (96.3 F) 10/22/2022 10:01 AM DECISION ANALYST Respiratory Rate 10 10/22/2022 10:0 1 AM DECISION ANALYST Oxygen Saturation 98% 10/22/2022 10: 01 AM DECISION ANALYST Inhaled Oxygen Concentration - - Weight 81.5 kg (179 lb 11.2 oz) 023 10:01 AM DECISION ANALYST Height 172.7 cm (5' 8 ) 03/21/2022 [...] Sig/CT Colonography Q 5 years Discontinued Insurance [place] [id number]
--- OUTSIDE RECORDS SUMMARY | 2025-01-13 11:32 | XMS_ITS | Data Portability ---
Author Organization [facility], [address] [facility] ([place]) Address [address] [place] [address] Care Team Providers Care Footwear Sales Representative Name Role Phone LYNDSAY BERNARD Primary Care [...] nortripty line 10 mg capsule [address] [facility] [address], [address], 04/30/2024 14:03:08 Patient TargetsNo targets recorded. 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 Mayra Rowell MD [address] [facility], [place], [address] [place] [address] 4 13:26:38 Notes:Some problems listed i n Document: #[id number] could not be added to this patient's [...] Name and Address Organization Details Recorded Time 269908 Oxycontin medicatio n Not available Not available Not available 09/23/20232015 40795 6 RxNorm Comme nt: React ion Date: 30 Nov 2010 ; Not Available [facility] 4 22:09:33 [id number] Substance with sulfonami de structure and antibacte rial mechanism of action (substanc e) medicatio n Not available Not available Not available 09/23/20232015 23377 8003 SNOMED Comme nt: React ion Date: 29 May 2011 ; Not Available [facility] 4 22:09:33 Medications Name Sig Start Date [...] Address Organization Details Last Updated DateTime 4 [address]92.7 4 g 24.7 kg/m2 173.99 cm 61 /min 124 mm[Hg] 68 mm[Hg] Tony Fournier [facility] 4 13:10:51 Social History None recorded. Functional Status None recorded. Mental Status None recorded. Family History Nothing Reported. Medical History No medical history recorded. 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 Health Concerns Section Related Observation LastModified by Organization Detai ls LastModified Time None Recorded Concern Status LastModified by Organization Details LastModified Time None Recorded Advance Directives Directive None Recorded Payers Insurance Date Sequence Insurance Name Policy Number Policy De Jesus Covered Member ID De Jesus Member ID Guarantor Name 05/03/2024 1 [facility] (MEDICARE REPLACEMENT/A DVANTAGE - PPO) [id number] Jovan Johnson Clark [id number] Jovan Rodas Notes Date Note Type Note [...] or a wheelchair.SKK Mayra Rowell MD [address], [address], [facility] 05/01/2024 19:00:20
--- NOTE | 2025-01-13 11:49 | ECG_ITS ---
Test Date: 2025-01-13 12:02:37 Measurements Intervals [place] Rate: 69 P: 0 OR: 0 QRS: 269 QRSD: 198 T: 86 QT: 526 QTc: 567 Interpretive Statements ELECTRONIC VENTRICULAR PACEMAKER ATYPICAL ECG Electronically Signed On 01-13-2025 13:23:03 CDT by Arpan Rajan M.D.
--- OUTSIDE RECORDS SUMMARY | 2025-01-13 11:55 | XMS_ITS | Clinical Summary ---
Author Organization [facility] Address [address], [facility] [address] [place] [address] Phone Care Team Providers Care Credentialing Analyst Name Role Phone Provider, Not On File [...] drink = 0.6 oz pur e alcohol) [facility] Utilities Answer Date Recorded In the past 12 months has [employer], [employer], or water [employer] threatened to shut off services in your home? Patient declined 09/24/2023 Social Connection and Isolation Panel [NHANES] A nswer Date Recorded In a typical week, how many times do you talk on the phone with family, friends, or neighbors? Patient declined 09/24/2023 How often do you get togethe r with friends or relatives? Patient declined 09/24/2023 How often do you attend buddhist or holiness serv ices? Patient declined 09/24/2023 Do you belong to any clubs o r organizations such as buddhist groups, unions, fraternal or athletic groups, or [...] Answer Date Recorded PHQ-2 Score 0 04/27/2019 [facility] of Occupat ional [facility] - Occupational Stress Questionnaire Answer Date [...] place to sleep or slept in a intermediate (including now)? Patient declined 09/24/2023 Sex and Gender Information Value Date Recorded Sex Assigned at Not on file Legal Sex Male 2:21 PM MERCHANDISING MANAGER Gender Identity Not on file Sexual Orientation Not on file Last Filed Vital Signs Vital Sign Reading Time Taken Comments Blood Pressure 150/84 09/26/2023 8:00 AM MERCHANDISING MANAGER Pulse 74 09/26/2023 8:00 AM MERCHANDISING MANAGER Temperature 35.9 C (96.7 F) 09/26/2023 8:33 AM MERCHANDISING MANAGER Respiratory Rate 20 09/26/2023 8:00 AM MERCHANDISING MANAGER Oxygen Saturation 97% 09/26/2023 8:0 0 AM MERCHANDISING MANAGER Inhaled Oxygen Concentration - - Weight 77.5 kg (170 lb 12.8 oz) 09/26/2023 5:55 AM MERCHANDISING MANAGER daily weight Height 172.7 cm (5' 8 ) 09/24/2023 3:06 PM MERCHANDISING MANAGER Body Mass Index 25.97 09/24/2023 3:06 PM MERCHANDISING MANAGER Plan of Treatment Health Maintenance Due Date [...] patient's age to complete this topic Insurance [facility] MEDICARE [facility] MEDICARE C [facility] Advance Directives * Full Code (Latest Code Status on File) Date Activated Date Inactivated Comments 09/24/2023 4:08 PM 09/26/2023 3:01 PM CPR-Full Cristiane tment: FULL ARREST: Attempt Resuscitation/CPR wit intubation and mechanical ventilation. PRE-ARREST: Use entire range of life support measures to stabilize the patient. Care Teams Credentialing Analyst Relationship Specialty Start Date End Date Provider, Not On File [place] PCP - General 09/26/23
--- OUTSIDE RECORDS SUMMARY | 2025-01-13 11:55 | XMS_ITS | Referral Summary ---
Author Organization [place] [address] [address] [place] [address] Care Team Providers Care Z Os Mainframe Systems Programmer Name Role Phone Ruddy Yang MD Primary Care Provider [phone] Encounters Date Type Department Care Team Description 01/07/2025 1:00 PM CDT Office Visit [facility] Cardiology [address] [place] [address] [place] [phone] Kary Rayo NP 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 heart failure (HCC) (Primary Dx); 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; Chronic coronary artery disease; Permanent atrial fibrillation (HCC); Primary hypertension; Hypercholesterolemia; S/P TAVR (transcatheter aortic valve replacement) 01/06/2025 Orders Only [address] [address] Iker Ponce MD 01/04/2025 8:00 AM CDT Ancillary Procedure [address] [place] [phone] ICD (implantable cardioverter-defibrilla tor) in place; Permanent atrial fibrillation (HCC); 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; S/P AV josué ablation; Congestive heart failure, unspecified HF chronicity, unspecified heart failure type (HCC) 01/04/2025 Telephone [place] [address] [place] [phone] Jarett Yousif MD 12/30/2024 Orders Only [facility] Cardiology [address] [place] [address] [place], [place] [address] [place] [address] Jarett Yousif MD ICD (implantable cardioverter-defibrilla tor) in place (Primary Dx); Permanent atrial fibrillation (HCC); 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; S/P AV josué ablation; Congestive heart failure, unspecified HF chronicity, unspecified heart failure type (HCC) 12/30/2024 10:00 AM CDT Ancillary Procedure [facility] Cardiology [address] [place] [address] [place] [phone] Longstanding persistent atrial fibrillation (HCC); SSS (sick sinus syndrome) (HCC); Congestive heart failure, unspecified HF chronicity, unspecified heart failure type (HCC); 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; History of atrioventricular josué ablation 12/29/2024 Telephone [facility] Cardiology [address] [place] [address] [place] [phone] Jarett Yousif MD 12/04/2024 11:30 AM CDT Office Visit [facility] Cardiology [address] [place] [address] [place] [phone] Letitia Kumar NP Coronary artery disease of [place] heart with stable angina pectoris, unspecified vessel or lesion type (Primary Dx); 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; Permanent atrial fibrillation (HCC); Chronic anticoagulation 11/24/2024 8:45 AM CDT Ancillary Procedure [facility] Cardiology [address] [place] [address] [place] [address] [place] [address] 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 (Primary Dx); Cardiomyopathy, unspecified type (HCC); SSS (sick sinus syndrome) (HCC); Permanent atrial fibrillation (HCC); Congestive heart failure, unspecified HF chronicity, unspecified heart failure type (HCC) 11/09/2024 8:45 AM CDT Office Visit [facility] Cardiology [address] [place] [address] Jarett Yousif MD Biventricular ICD [...] tablet/capsul e (10 mEq total) by mouth burr bench hand before breakfast [address] (CYMBALTA) [...] 09/02/2022 Assessment & Plan (07/03/2023 10:35 AM CONVERSION WORKER): Hearing test Flonase 2 sprays into [...] 07/03/2023 Assessment & Plan (07/03/2023 10:35 AM CONVERSION WORKER): Hearing test Flonase 2 sprays into [...] (07/11/2022): Added automatically from request for surgery [id number] Pain associated with wound 06/28/2022 S/P TAVR (transcatheter aortic valve replacement ) 05/16/2021 Hx of CABG 02/07/2021 Permanent atrial fibrillation 02/07/2021 ICD (implantable cardioverter-defibrillator) in place 02/07/2021 History of coronary artery stent placement 02/07 Biventricular ICD (implantab le cardioverter-defibrillator) in place 01/04/2021 Overview (10/28/2023): Easy-Point BIV ICD. Dx; CHF, SSS. Afib, AV Node Ablation. DOI 10/28/2023- Lynette. Chronic leads 05/25/2015. [place] remote monitoring. LV lead is a Medtronic lead and therefore the device is Not MRI conditional d/t Knock Knock products. Dr Jovan Beltran-original device implanter in [...] on file Legal Sex Male 1:59 AM CONVERSION WORKER Gender Identity Not on file Sexual Orientation Not on file Last Filed Vital Signs Vital Sign Reading Time Taken Comments Blood Pressure 122/70 01/07/2025 12:35 PM CDT Pulse 71 01/07/2025 12:35 PM CDT Temperature 36.1 C (97 F) 10/28/2023 1:26 PM CONVERSION WORKER Respiratory Rate 14 01/07/2025 12:35 PM CDT Oxygen Saturation 95% 01/07/2025 12:35 PM CDT Inhaled Oxygen Concentration - - Weight 76.2 kg (168 lb) 01/07/2025 12:35 PM CDT Height 172.7 cm (5' 8 ) 01/07/2025 12:35 PM CDT Body Mass Index 25.54 01/07/2025 12:35 PM CDT Plan of Treatment Not on file Medical Devices Implanted Type Area Book Binder Device Identifier Shelf Expiration Date Model / Serial / Lot Icd ICD Heart Pacemaker Pacemaker Heart Description:PACEMAKER/ICD Stent Implanted:Qty: 2 Stent Heart [employer] Defib Cardiac [id number] [place] Hf Df4 Is-4 Is-1 Cnctr [id number] - [id number] - [id number] Implanted:Qty: 1 on 10/28/2023 by Eric Ojeda MD at [facility] [employer] 08/25/2025 [id number] / [id number] / Procedures Procedure Name Priority Date/Time Associated [...] Other Narrative 01/08/2025 10:41 AM CDT Yo [place] BIV ICD. Dx; CHF, SSS. Afib, AV Node Ablation. DOI 10/28/2023-Lynette. Chronic leads 05/25/2015. [place] remote monitoring. Unscheduled remote due to patient [...] Lasix, potassium, amongst others. See scanned report. [place] remote follow-up 04/06/2025. ROV with Dr. Yousif 05/20/2025. Ning Johansen, RN Jarett Yousif MD [facility] C[facility] SERVICES PROC EDURES Final Result * DEVICE CHECK - IN OFFICE (12/30/2024 9:48 AM CDT) Anatomical Region Laterality Modality Other Narrative 01/08/2025 10:39 AM CDT Yo [place] BIV ICD. Dx; CHF, SSS. Afib, AV Node Ablation. DOI 10/28/2023-Santiagoanda. Chronic leads 05/25/2015. [place] remote monitoring. LV lead is a Medtronic lead and therefor the device is Not MRI conditional d/t Knock Knock products. Supervising MD: Dr Whittaker. Left pectoral [...] Modality Other Narrative 12/03/2024 8:25 AM CDT Easy-Point BIV ICD. Dx; CHF, SSS. Afib, AV Node Ablation. DOI 10/28/2023-Lynette. Chronic leads 05/25/2015. [place] remote monitoring. LV lead is a [employer] lead and therefore the device is Not MRI conditional d/t Knock Knock products. Dr Jovan Beltran-original device implanter in [...] mg, Follow up: Office Pacemaker/ICD scheduled 12/30/24 [place] remote 4 months Capo Wade RN Jarett Yousfi MD [facility] CARDIAC SERVICES PROC EDURES Final Result from Last 3 Months Insurance [facility] MEDICARE ADVANTAGE MEDICARE ON LICENSE OF [facility] MEDICARE ADVANTAGE UHC MEDICARE ADVANTAGE Care Teams Z Os Mainframe Systems Programmer Relationship Specialty Start Date End Date Ruddy Yang MD [address] [place] [address] PCP - General Internal Medicine 01/02/21
--- OUTSIDE RECORDS SUMMARY | 2025-01-13 11:55 | XMS_ITS | Clinical Summary ---
Author Organization [facility] [address] Address [address] [place] [address] Care Team Providers Care All Around Gear Machine Operator Name Role Phone Ruddy Yang MD Primary Care Provider [phone] Allergies Active Allergy Reactions Criticality Noted Date [...] tablet/capsul e (10 mEq total) by mouth assistant chief nursing officer before breakfast [address] (CYMBALTA) [...] 09/02/2022 Assessment & Plan (07/03/2023 10:35 AM CUPBOARD BUILDER): Hearing test Flonase 2 sprays into each [...] 07/03/2023 Assessment & Plan (07/03/2023 10:35 AM CUPBOARD BUILDER): Hearing test Flonase 2 sprays into each [...] (07/11/2022): Added automatically from request for surgery [id number] Pain associated with wound 06/28/2022 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 Dx; CHF, SSS. Afib, AV Node Ablation. DOI 10/28/2023- Lynette. Chronic leads 05/25/2015. Sublette remote monitoring. LV lead is a Medtronic lead and therefore the device is Not MRI conditional d/t [employer] products. Dr Jovan Beltran-original device implanter in 2014. Osteoarthritis of lumbar spine 08/10/2015 Hypertension 01/29/2014 Overview (11/30/2016): High blood pressure Chronic coronary artery disease 01/29/2014 Overview (11/30/2016): Coronary artery disease Chronic obstructive pulmonary disease 01/29/2014 Overview (11/30/2016): COPD Hypercholesterolemia 01/29/2014 Overview (11/30/2016): High cholesterol Lumbago 02/04/2009 Encounters Date Type Department Care Team Description 01/07/2025 1:00 PM CDT Office Visit [facility] Cardiology [address] [place] [phone] Kary Rayo NP 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 heart failure (HCC) (Primary Dx); 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; Chronic coronary artery disease; Permanent atrial fibrillation (HCC); Primary hypertension; Hypercholesterolemia; S/P TAVR (transcatheter aortic valve replacement) 01/06/2025 Orders Only [facility] Cardiology [address] [place] [address] [place] [phone] Iker Ponce MD 01/04/2025 8:00 AM CDT Ancillary Procedure [facility] Cardiology [address] [place] [address] [place] [phone] ICD (implantable cardioverter-defibrilla tor) in place; Permanent atrial fibrillation (HCC); 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; S/P AV josué ablation; Congestive heart failure, unspecified HF chronicity, unspecified heart failure type (HCC) 01/04/2025 Telephone [facility] Cardiology [address] [place] [address] [address] [place] [phone] Jarett Yousif MD 12/30/2024 10:00 AM CDT Ancillary Procedure [facility] [address] [place] [address] [place] [phone] Longstanding persistent atrial fibrillation (HCC); SSS (sick sinus syndrome) (HCC); Congestive heart failure, unspecified HF chronicity, unspecified heart failure type (HCC); 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; History of atrioventricular josué ablation 12/30/2024 Orders Only [facility] [address] [place] [address] [place] [phone] Jarett Yousif MD ICD (implantable cardioverter-defibrilla tor) in place (Primary Dx); Permanent atrial fibrillation (HCC); 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; S/P AV josué ablation; Congestive heart failure, unspecified HF chronicity, unspecified heart failure type (HCC) 12/29/2024 Telephone [facility] Cardiology [address] [place] [address] [place] [phone] Jarett Yousif MD 12/04/2024 11:30 AM CDT Office Visit [facility] Cardiology [address] [place] [address] [place] [phone] Letitia Kumar NP 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, unspecified vessel or lesion type (Primary Dx); 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; Permanent atrial fibrillation (HCC); Chronic anticoagulation 11/24/2024 8:45 AM CDT Ancillary Procedure [facility] [address] [place] [address] [place] [phone] 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 (Primary Dx); Cardiomyopathy, unspecified type (HCC); SSS (sick sinus syndrome) (HCC); Permanent atrial fibrillation (HCC); Congestive heart failure, unspecified HF chronicity, unspecified heart failure type (HCC) 11/09/2024 8:45 AM CDT Office Visit [facility] Cardiology [address] [place] [phone] Jarett Yousif MD Biventricular ICD [...] on file Legal Sex Male 1:59 AM CUPBOARD BUILDER Gender Identity Not on file Sexual Orientation Not on file Obstetrics History Last Filed Vital Signs Vital Sign Reading Time Taken Comments Blood Pressure 122/70 01/07/2025 12:35 PM CDT Pulse 71 01/07/2025 12:35 PM CDT Temperature 36.1 C (97 F) 10/28/2023 1:26 PM CUPBOARD BUILDER Respiratory Rate 14 01/07/2025 12:35 PM CDT [...] 06/28/2030 06/28/2020 Medical Devices Implanted Type Area Broker In Charge Device Identifier Shelf Expiration Date Model / Serial / Lot Icd ICD Heart Pacemaker Pacemaker Heart Description:PACEMAKER/ICD Stent Implanted:Qty: 2 Stent Heart Yo Vascular Defib Cardiac [id number] Chilcoot Hf Df4 Is-4 Is-1 Cnctr [id number] - [id number] - [id number] Implanted:Qty: 1 on 10/28/2023 by Eric Ojeda MD at [facility] Vascular 08/25/2025 [id number] / [id number] / Procedures Procedure Name Priority Date/Time Associated [...] Other Narrative 01/08/2025 10:41 AM CDT Yo Chilc[place] BIV ICD. Dx; CHF, SSS. Afib, AV [...] Lasix, potassium, amongst others. See scanned report. Sublette remote follow-up 04/06/2025. ROV with Dr. Yousif 05/20/2025. Ning Johansen RN Jarett Yousif MD CV CARDIAC SERVICES PROC EDURES Final Result * DEVICE CHECK - IN OFFICE (12/30/2024 9:48 AM CDT) Anatomical Region Laterality Modality Other Narrative 01/08/2025 10:39 AM CDT Yo Ch[place] BIV ICD. Dx; CHF, SSS. Afib, AV Node Ablation. DOI 10/28/2023-Santiago. Chronic leads 05/25/2015. Sav remote monitoring. LV lead is a Medtronic lead and therefor the device is Not MRI conditional d/t [employer] products. Supervising MD: Dr Whittaker. Left pectoral [...] Modality Other Narrative 12/03/2024 8:25 AM CDT [employer] BIV ICD. Dx; CHF, SSS. Afib, AV Node Ablation. DOI 10/28/2023-Lynette. Chronic leads 05/25/2015. Sublette remote monitoring. LV lead is a Horse Sense Shoestronic lead and therefore the device is Not MRI conditional d/t [employer] products. Dr Jovan Beltran-original device implanter in [...] mg, Follow up: Office Pacemaker/ICD scheduled 12/30/24 Sublette remote 4 months Capo Wade RN Jarett Yousif MD CV CARDIAC SERVICES PROC EDURES Final Result from Last 3 Months Insurance [facility] MEDICARE ADVANTAGE MEDICARE [facility] ADVANTAGE [facility] [place] [address] Care Teams All Around Gear Machine Operator Relationship Specialty Start Date End Date Ruddy Yang MD [address] [place], [place] [id number] PCP - General Internal Medicine 01/02/21
--- OUTSIDE RECORDS SUMMARY | 2025-01-13 11:55 | XMS_ITS | Clinical Summary ---
Author Organization [facility] Address [address] [facility] [place] [address] Phone Care Team Providers Care Crew Trainer Name Role Phone Unavailable Primary Care Provider [...] daily. Active fluticasone propionate (FLONASE) 50 mcg/spray Aurora, Suspension nasal inhaler Administer 2 Sprays in each nostril daily. Active ipratropium bromide (ATROVENT) 42 mcg (0.06 %) Aurora, Non-Aerosol Administer 2 Sprays in each nostril [...] on file Legal Sex Male 11:34 AM RULING MACHINE FEEDER Gender Identity Not on file Sexual Orientation Not on file Last Filed Vital Signs Vital Sign Reading Time Taken Comments Blood Pressure 140/77 10/22/2022 10:05 AM RULING MACHINE FEEDER Pulse 70 10/22/2022 10:01 AM RULING MACHINE FEEDER Temperature 35.7 C (96.3 F) 10/22/2022 10:01 AM RULING MACHINE FEEDER Respiratory Rate 10 10/22/2022 10:0 1 AM RULING MACHINE FEEDER Oxygen Saturation 98% 10/22/2022 10: 01 AM RULING MACHINE FEEDER Inhaled Oxygen Concentration - - Weight 81.5 kg (179 lb 11.2 oz) 023 10:01 AM RULING MACHINE FEEDER Height 172.7 cm (5' 8 ) 03/21/2022 [...] Sig/CT Colonography Q 5 years Discontinued Insurance [place] [id number]
--- OUTSIDE RECORDS SUMMARY | 2025-01-13 11:55 | XMS_ITS | Clinical Summary ---
Author Organization [facility] Address [address] [place] [address] Phone Care Team Providers Care Operations Supervisor 2Nd Shift Name Role Phone Ruddy Yang MD Primary Care Provider [phone] Allergies Active Allergy Reactions Criticality Noted Date [...] Ended) 2025 04/26/20 15, 06/26/2014 Insurance MEDICARE [facility] Care Teams Operations Supervisor 2Nd Shift Relationship Specialty Start Date End Date Ruddy Yang MD [address] [place] [address] PCP - General Internal Medicine 12/19/20
--- OUTSIDE RECORDS SUMMARY | 2025-01-13 11:55 | XMS_ITS | Clinical Summary ---
Author Organization [facility] Address [address] [place] [address] Care Team Providers Care Dry Color Tester Name Role Phone Ruddy Yang MD Primary Care Provider [phone] Source Comments [employer] [employer] [facility],non-owned Affiliates and Associated Physician Practices is amultiple site organization consisting of ambulatory clinics and hospital sitesin [place], [place], [place] and [place]. This disclosure is being madepursuant to the Care Everywhere program and may not contain all information available regarding this patient. Last updated 18.[facility] [facility] Medications * Be aware that medications may [...] on file Legal Sex Male 6:41 PM LATH HAND Gender Identity Not on file Sexual Orientation [...] age to complete this topic Insurance MEDICARE [facility] MEDICARE MEDICARE SELF PAY NO INSURANCE Member Subscriber Plan / Payer (Ef fective for All Dates) Name:Elida Davidson Naty Member ID:Not on file Relation to Subscriber:Not on file Name:ELIDA DAVIDSON Subscriber ID:Not on file (Home) Address: [address] [place] [address] Payer ID:Not on file Group ID:Not on file Type:Self Pay Address: [facility] MANAGED MEDICARE ADV * Guarantor: ELIDA DAVIDSON Account Type Relation to Patient Date of Phone Billing Address Personal/Family Spouse [address] [place] [address] SELF PAY NO INSURANCE Member Subscriber Plan / Payer (Ef fective for All Dates) Name:Elida Davidson Naty Member ID:Not on file Relation to Subscriber:Not on file Name:ELIDA DAVIDSON Subscriber ID:Not on file (Home) Address: [address] [place] [address] Payer ID:Not on file Group ID:Not on file Type:Self Pay Address: [place], [place] SELF PAY NO INSURANCE Member Subscriber Plan / Payer (Ef fective for All Dates) Name:Elida Davidson Member ID:Not on file Relation to Subscriber:Not on file Name:ELIDA DAVIDSON Subscriber ID:Not on file (Home) Address: [address] [place] [address] [place] [address] Payer ID:Not on file Group ID:Not on file Type:Self Pay Address: [facility] MANAGED MEDICARE ADV Care Teams Dry Color Tester Relationship Specialty Start Date End Date Ruddy Yang MD PCP - General 07/08/20
[2025-01-13 12:13] LABS: Basophils Absolute Auto 0.02 K/mm3 (0.00-0.10); Basophils Percent Auto 0.4 % (0.0-1.0); Eosinophils Absolute Auto 0.11 K/mm3 (0.02-0.50); Eosinophils Percent Auto 2.1 % (1.0-6.0); Hematocrit 26.7 % (37.0-46.0); Hemoglobin 8.6 g/dL (12.4-15.3); Immature Granulocyte Absolute 0.01 K/mm3 (0.00-0.00); Immature Granulocyte Percent A 0.2 % (0.0-0.0); Lymphocytes Absolute Auto 0.85 K/mm3 (1.10-4.50); Lymphocytes Percent Auto 16.5 % (18.0-42.0); Mean Corpuscular HGB Conc 32.2 g/dL (32-36); Mean Corpuscular Hemoglobin 32.8 pg (27.0-31.0); Mean Corpuscular Volume 101.9 fL (78.0-102.0); Mean Platelet Volume 9.9 fl (8.7-11.0); Monocytes Absolute Auto 0.68 K/mm3 (0.10-0.90); Monocytes Percent Auto 13.2 % (2.0-11.0); Neutrophils Absolute Auto 3.49 K/mm3 (1.70-7.20); Neutrophils Percent Auto 67.6 % (50.0-70.0); Platelet Count Result 106 K/mm3 (150-420); Red Blood Count 2.62 M/mm3 (4.70-6.10); Red Cell Distribution Width 15.3 % (11.6-14.4); White Blood Count 5.2 K/mm3 (4.8-10.8)
[2025-01-13 12:25] LABS: Lactic Acid Reflex 2.5 mmol/L (0.4-2.0)
[2025-01-13 12:26] LABS: Alanine Aminotransferase 18 U/L (6-50); Albumin Level 4.3 g/dL (3.5-5.1); Alkaline Phosphatase 38 U/L (38-126); Anion Gap 9 mmol/L (4-12); Aspartate Amino Transferase 28 U/L (17-59); Bilirubin,Total 0.9 mg/dL (0.2-1.3); Blood Urea Nitrogen 34 mg/dL (9-20); Calcium 9.2 mg/dL (8.4-10.2); Carbon Dioxide 26 mmol/L (22-30); Chloride 104 mmol/L (98-107); Estimated CRCL calculation 27 ml/min; Estimated Glomerular Filt Rate 35; Glucose 141 mg/dL (65-110); Osmolality Calculated 297 mOsm/kg (285-295); Potassium 4.6 mmol/L (3.4-5.0); Sodium 139 mmol/L (137-145); Total Protein 7.1 g/dL (6.3-8.2)
[2025-01-13 12:38] LABS: NT Pro B Type Natriuretic Pept 3150 pg/mL (19.9-100); Troponin I 0.021 ng/mL (0.000-0.034)
[2025-01-13 12:44] LABS: Iron 38 ug/dL (49-181)
[2025-01-13 12:54] LABS: Percent Iron Saturation 10 % (20-50)
[2025-01-13 13:01] LABS: Add Urine Microscopic? NO; Appearance Urine Clear (Clear); Bilirubin Urine Negative (Negative); Blood Urine Negative (Negative); Color Urine Yellow (Yellow); Glucose Urine UA Negative (Negative); Ketones Urine Negative (Negative); Leukocyte Esterase Ur Negative LEU/UL (Negative); Nitrate Urine Negative (Negative); Protein Urine Negative (Negative); Urobilinogen Urine 0.2 mg/dL (0.2-1.0); pH Urine 5.5 (5.0-8.0)
[2025-01-13 14:09] LABS: Reflex Lactic Acid Yes or No Add Lactic
[2025-01-15 12:04] LABS: Red Blood Cell Folate 975 ng/mL RBC (>280)
== END 2025-01-13 13:17 | disposition home or self-care (01) ==
PROVIDERS: Emergency Provider Internal Medicine Critical Care Medicine; PCP Internal Medicine
DX: N17.9 Acute kidney failure, unspecified (principal); I13.0 Hypertensive heart and chronic kidney disease with heart failure and stage 1 through stage 4 chronic kidney disease, or unspecified chronic kidney disease; I48.91 Unspecified atrial fibrillation; I25.10 Atherosclerotic heart disease of native coronary artery without angina pectoris; I11.0 Hypertensive heart disease with heart failure; I50.9 Heart failure, unspecified; N18.30 Chronic kidney disease, stage 3 unspecified; D63.1 Anemia in chronic kidney disease; J44.9 Chronic obstructive pulmonary disease, unspecified; E78.5 Hyperlipidemia, unspecified; M10.9 Gout, unspecified; N40.0 Benign prostatic hyperplasia without lower urinary tract symptoms; G47.33 Obstructive sleep apnea (adult) (pediatric); F41.1 Generalized anxiety disorder; I73.9 Peripheral vascular disease, unspecified; K21.9 Gastro-esophageal reflux disease without esophagitis; Z95.1 Presence of aortocoronary bypass graft; Z95.2 Presence of prosthetic heart valve; Z79.01 Long term (current) use of anticoagulants; Z79.82 Long term (current) use of aspirin; Z95.810 Presence of automatic (implantable) cardiac defibrillator; Z95.5 Presence of coronary angioplasty implant and graft; Z87.891 Personal history of nicotine dependence
CPT/HCPCS: 36415; 71045; 80053; 81003; 82607; 82728; 82747; 83540; 83550; 83605; 83880; 84443; 84484; 85025; 93005; 99284

== ENCOUNTER 2025-01-20 13:12 | Outpatient (CLI) | payer MEDICARE, SELFPAY ==
--- OUTSIDE RECORDS SUMMARY | 2025-01-20 13:21 | XMS_ITS | Clinical Summary ---
Author Organization [facility] Address [address] [place] [phone] Phone Care Team Providers Care Customs Director Name Role Phone Ruddy Yang MD Primary Care Provider [phone] Allergies Active Allergy Reactions Criticality Noted Date [...] 11:19 AM CDT Height 172.7 cm (5' 8) 12/06/2021 11:19 AM CDT Body Mass Index 29.35 12/06/2021 11:19 AM CDT Plan of Treatment Health Maintenance Due Date Last Done Comments Pneumococcal PPSV23/PCV13 65 + Years / Low and Medium Risk (1 of 4 - PCV) 1991 Influenza Vaccine (Season Ended) 2025 04/26/20 15, 06/26/2014 Insurance MEDICARE [facility] Care Teams Customs Director Relationship Specialty Start Date End Date Ruddy Yang MD [address] [place] [address] PCP - General Internal Medicine 12/19/20
--- OUTSIDE RECORDS SUMMARY | 2025-01-20 13:21 | XMS_ITS | Clinical Summary ---
Author Organization [facility] Address [address] [place] [address] Care Team Providers Care Wardrobe Consultant Name Role Phone Ruddy Yang MD Primary Care Provider [phone] Source Comments [employer] [facility],non-owned Affiliates and Associated Physician Practices is amultiple site organization consisting of ambulatory clinics and hospital sitesin [place], [place], [place] and [place]. This disclosure is being madepursuant to the Care Everywhere program and may not contain all information available regarding this patient. Last updated 18.[employer] [facility] Medications * Be aware that medications may [...] on file Legal Sex Male 6:41 PM SENIOR INFORMATICA ETL DEVELOPER Gender Identity Not on file Sexual Orientation [...] age to complete this topic Insurance MEDICARE [facility] MEDICARE MEDICARE SELF PAY NO INSURANCE Member Subscriber Plan / Payer (Ef fective for All Dates) Name:Elida Davidosn Naty Member ID:Not on file Relation to Subscriber:Not on file Name:ELIDA DAVIDSON Subscriber ID:Not on file (Home) Address: [address] [place] [address] Payer ID:Not on file Group ID:Not on file Type:Self Pay Address: [facility] MANAGED MEDICARE ADV * Guarantor: ELIDA DAVIDSON Account Type Relation to Patient Date of Phone Billing Address Personal/Family Spouse [address] [place] [address] SELF PAY NO INSURANCE Member Subscriber Plan / Payer (Ef fective for All Dates) Name:Elida Davidson Naty Member ID:Not on file Relation to Subscriber:Not on file Name:ELIDA DAVIDSON Subscriber ID:Not on file (Home) Address: [address] [place] [address] Payer ID:Not on file Group ID:Not on file Type:Self Pay Address: [place], [place] SELF PAY NO INSURANCE Member Subscriber Plan / Payer (Ef fective for All Dates) Name:Elida Davidson Member ID:Not on file Relation to Subscriber:Not on file Name:ELIDA DAVIDSON Subscriber ID:Not on file (Home) Address: [address] [place] [address] [place] [address] Payer ID:Not on file Group ID:Not on file Type:Self Pay Address: [facility] MANAGED MEDICARE ADV Care Teams Wardrobe Consultant Relationship Specialty Start Date End Date Ruddy Yang MD PCP - General 07/08/20
--- OUTSIDE RECORDS SUMMARY | 2025-01-20 13:21 | XMS_ITS | Clinical Summary ---
Author Organization [facility] [address] Address [address] [place] [address] Care Team Providers Care Gas Welder Name Role Phone Ruddy Yang MD Primary Care Provider + [phone] Allergies Active Allergy Reactions Criticality Noted Date [...] tablet/capsul e (10 mEq total) by mouth manager mechanical before breakfast [address] (CYMBALTA) [...] 09/02/2022 Assessment & Plan (07/03/2023 10:35 AM PUBLIC ADDRESS SYSTEMS MECHANIC): Hearing test Flonase 2 sprays into each [...] 07/03/2023 Assessment & Plan (07/03/2023 10:35 AM PUBLIC ADDRESS SYSTEMS MECHANIC): Hearing test Flonase 2 sprays into each [...] (07/11/2022): Added automatically from request for surgery [id number] Pain associated with wound 06/28/2022 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 Dx; CHF, SSS. Afib, AV Node Ablation. DOI 10/28/2023- Lynette. Chronic leads 05/25/2015. [place] remote monitoring. LV lead is a Medtronic lead and therefore the device is Not MRI conditional d/t Wowboard products. Dr Jovan Beltran-original device implanter in 2014. Osteoarthritis of lumbar spine 08/10/2015 Hypertension 01/29/2014 Overview (11/30/2016): High blood pressure Chronic coronary artery disease 01/29/2014 Overview (11/30/2016): Coronary artery disease Chronic obstructive pulmonary disease 01/29/2014 Overview (11/30/2016): COPD Hypercholesterolemia 01/29/2014 Overview (11/30/2016): High cholesterol Lumbago 02/04/2009 Encounters Date Type Department Care Team Description 01/07/2025 1:00 PM CDT Office Visit [facility] Cardiology [address] [place] [phone] Kary Rayo NP 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 heart failure (HCC) (Primary Dx); 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; Chronic coronary artery disease; Permanent atrial fibrillation (HCC); Primary hypertension; Hypercholesterolemia; S/P TAVR (transcatheter aortic valve replacement) 01/06/2025 Orders Only [facility] [address] [place] [address] [place] [phone] Iker Ponce MD 01/04/2025 8:00 AM CDT Ancillary Procedure [facility] [address] [place] [address] [place] [phone] ICD (implantable cardioverter-defibrilla tor) in place; Permanent atrial fibrillation (HCC); 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; S/P AV josué ablation; Congestive heart failure, unspecified HF chronicity, unspecified heart failure type (HCC) 01/04/2025 Telephone [facility] [address] [place] [address] [address] [place] [phone] Jarett Yousif MD 12/30/2024 10:00 AM CDT Ancillary Procedure [facility] [address] [place] [address] [place] [phone] Longstanding persistent atrial fibrillation (HCC); SSS (sick sinus syndrome) (HCC); Congestive heart failure, unspecified HF chronicity, unspecified heart failure type (HCC); 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; History of atrioventricular josué ablation 12/30/2024 Orders Only [facility] [address] [place] [address] [place] [phone] Jarett Yousif MD ICD (implantable cardioverter-defibrilla tor) in place (Primary Dx); Permanent atrial fibrillation (HCC); 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; S/P AV josué ablation; Congestive heart failure, unspecified HF chronicity, unspecified heart failure type (HCC) 12/29/2024 Telephone [facility] [address] [place] [address] [place] [phone] Jarett Yousif MD 12/04/2024 11:30 AM CDT Office Visit [facility] [address] [place] [address] [place] [phone] Letitia Kumar NP Coronary artery disease of [place] heart with stable angina pectoris, unspecified vessel or lesion type (Primary Dx); 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; Permanent atrial fibrillation (HCC); Chronic anticoagulation 11/24/2024 8:45 AM CDT Ancillary Procedure [facility] [address] [place] [address] [place] [phone] 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 (Primary Dx); Cardiomyopathy, unspecified type (HCC); SSS (sick sinus syndrome) (HCC); Permanent atrial fibrillation (HCC); Congestive heart failure, unspecified HF chronicity, unspecified heart failure type (HCC) 11/09/2024 8:45 AM CDT Office Visit [facility] [address] [place] [address] Jarett Yousif MD Biventricular ICD [...] on file Legal Sex Male 1:59 AM PUBLIC ADDRESS SYSTEMS MECHANIC Gender Identity Not on file Sexual Orientation Not on file Obstetrics History Last Filed Vital Signs Vital Sign Reading Time Taken Comments Blood Pressure 122/70 01/07/2025 12:35 PM CDT Pulse 71 01/07/2025 12:35 PM CDT Temperature 36.1 C (97 F) 10/28/2023 1:26 PM PUBLIC ADDRESS SYSTEMS MECHANIC Respiratory Rate 14 01/07/2025 12:35 PM CDT Oxygen Saturation 95% 01/07/2025 12:35 PM CDT Inhaled Oxygen Concentration - - Weight 76.2 kg (168 lb) 01/07/2025 12:35 PM CDT Height 172.7 cm (5' 8) 01/07/2025 12:35 PM CDT Body Mass Index [...] 06/28/2030 06/28/2020 Medical Devices Implanted Type Area Pump Mechanic Device Identifier Shelf Expiration Date Model / Serial / Lot Icd ICD Heart Pacemaker Pacemaker Heart Description:PACEMAKER/ICD Stent Implanted:Qty: 2 Stent Heart Yo Vascular Defib Cardiac [id number] [place] Hf Df4 Is-4 Is-1 Cnctr [id number] - [id number] - [id number] Implanted:Qty: 1 on 10/28/2023 by Eric Ojeda MD at [facility] Vascular 08/25/2025 [id number] / [id number] / Procedures Procedure Name Priority Date/Time Associated [...] Other Narrative 01/08/2025 10:41 AM CDT Yo [place] BIV ICD. Dx; CHF, SSS. Afib, AV Node Ablation. DOI 10/28/2023-Lynette. Chronic leads 05/25/2015. [place] remote monitoring. Unscheduled remote due to patient [...] Lasix, potassium, amongst others. See scanned report. [place] remote follow-up 04/06/2025. ROV with Dr. Yousif 05/20/2025. Ning Johansen RN Jarett Yousif MD CV CARDIAC SERVICES PROC EDURES Final Result * DEVICE CHECK - IN OFFICE (12/30/2024 9:48 AM CDT) Anatomical Region Laterality Modality Other Narrative 01/08/2025 10:39 AM CDT Yo [place] BIV ICD. Dx; CHF, SSS. Afib, AV Node Ablation. DOI 10/28/2023-Santiago. Chronic leads 05/25/2015. Sav remote monitoring. LV lead is a Medtronic lead and therefor the device is Not MRI conditional d/t Wowboard products. Supervising MD: Dr Whittaker. Left pectoral [...] based on patient's response to today's adjustments. [place] remote f/u 04/06/2025. Ning Johansen RN Jarett Yousif MD CV CARDIAC SERVICES PROC EDURES Final Result * DEVICE CHECK - REMOTE (11/24/2024 10:05 AM CDT) Anatomical Region Laterality Modality Other Narrative 12/03/2024 8:25 AM CDT HealthFusion BIV ICD. Dx; CHF, SSS. Afib, AV Node Ablation. DOI 10/28/2023-Lynette. Chronic leads 05/25/2015. Sav remote monitoring. LV lead is a [employer]matters AGtronic lead and therefore the device is Not MRI conditional d/t Wowboard products. Dr Jovan Beltran-original device implanter in [...] mg, Follow up: Office Pacemaker/ICD scheduled 12/30/24 [place] remote 4 months Capo Wade RN Jarett Yousif MD CV CARDIAC SERVICES PROC EDURES Final Result from Last 3 Months Insurance [facility] MEDICARE ADVANTAGE MEDICARE [facility] MEDICARE ADVANTAGE [facility] MEDICARE ADVANTAGE Care Teams Gas Welder Relationship Specialty Start Date End Date Ruddy Yang MD [address] [place], [place] [id number] PCP - General Internal Medicine 01/02/21
--- OUTSIDE RECORDS SUMMARY | 2025-01-20 13:21 | XMS_ITS | Referral Summary ---
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; Chronic coronary artery disease; Permanent atrial fibrillation (HCC); Primary hypertension; Hypercholesterolemia; S/P TAVR (transcatheter aortic valve replacement) 01/06/2025 Orders Only [address] [phone] Iker Ponce MD 01/04/2025 8:00 AM CDT Ancillary Procedure [address] [place] [phone] ICD (implantable cardioverter-defibrilla tor) in place; Permanent atrial fibrillation (HCC); 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; S/P AV josué ablation; Congestive heart failure, unspecified HF chronicity, unspecified heart failure type (HCC) 01/04/2025 Telephone [place] [address] [place] [phone] Jarett Yousif MD 12/30/2024 Orders Only [facility] Cardiology [address] [place] [address] [place], [place] [address] [place] [phone] Jarett Yousif MD ICD (implantable cardioverter-defibrilla tor) in place (Primary Dx); Permanent atrial fibrillation (HCC); 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; S/P AV josué ablation; Congestive heart failure, unspecified HF chronicity, unspecified heart failure type (HCC) 12/30/2024 10:00 AM CDT Ancillary Procedure [facility] Cardiology [address] [place] [address] [place] [phone] Longstanding persistent atrial fibrillation (HCC); SSS (sick sinus syndrome) (HCC); Congestive heart failure, unspecified HF chronicity, unspecified heart failure type (HCC); 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; History of atrioventricular josué ablation 12/29/2024 Telephone [facility] Cardiology [address] [place] [address] [place] [phone] Jarett Yousif MD 12/04/2024 11:30 AM CDT Office Visit [facility] Cardiology [address] [place] [address] [place] [phone] Letitia Kumar NP Coronary artery disease of [place] heart with stable angina pectoris, unspecified vessel or lesion type (Primary Dx); 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; Permanent atrial fibrillation (HCC); Chronic anticoagulation 11/24/2024 8:45 AM CDT Ancillary Procedure [facility] Cardiology [address] [place] [address] [place] [address] [place] [phone] 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 (Primary Dx); Cardiomyopathy, unspecified type (HCC); SSS (sick sinus syndrome) (HCC); Permanent atrial fibrillation (HCC); Congestive heart failure, unspecified HF chronicity, unspecified heart failure type (HCC) 11/09/2024 8:45 AM CDT Office Visit [facility] Cardiology [address] [place] [address] Jarett Yousif MD Biventricular ICD [...] tablet/capsul e (10 mEq total) by mouth environmental education specialist before breakfast [address] [...] 09/02/2022 Assessment & Plan (07/03/2023 10:35 AM SURVEILLANCE OFFICER): Hearing test Flonase 2 sprays into each [...] 07/03/2023 Assessment & Plan (07/03/2023 10:35 AM SURVEILLANCE OFFICER): Hearing test Flonase 2 sprays into each [...] (07/11/2022): Added automatically from request for surgery [id number] Pain associated with wound 06/28/2022 S/P TAVR (transcatheter aortic valve replacement ) 05/16/2021 Hx of CABG 02/07/2021 Permanent atrial fibrillation 02/07/2021 ICD (implantable cardioverter-defibrillator) in place 02/07/2021 History of coronary artery stent placement 02/07 Biventricular ICD (implantab le cardioverter-defibrillator) in place 01/04/2021 Overview (10/28/2023): SOLO BIV ICD. Dx; CHF, SSS. Afib, AV Node Ablation. DOI 10/28/2023- Lynette. Chronic leads 05/25/2015. [employer] remote monitoring. LV lead is a Medtronic lead and therefore the device is Not MRI conditional d/t Rock My World products. Dr Jovan Beltran-original device implanter in [...] on file Legal Sex Male 1:59 AM SURVEILLANCE OFFICER Gender Identity Not on file Sexual Orientation Not on file Last Filed Vital Signs Vital Sign Reading Time Taken Comments Blood Pressure 122/70 01/07/2025 12:35 PM CDT Pulse 71 01/07/2025 12:35 PM CDT Temperature 36.1 C (97 F) 10/28/2023 1:26 PM SURVEILLANCE OFFICER Respiratory Rate 14 01/07/2025 12:35 PM CDT Oxygen Saturation 95% 01/07/2025 12:35 PM CDT Inhaled Oxygen Concentration - - Weight 76.2 kg (168 lb) 01/07/2025 12:35 PM CDT Height 172.7 cm (5' 8) 01/07/2025 12:35 PM CDT Body Mass Index 25.54 01/07/2025 12:35 PM CDT Plan of Treatment Not on file Medical Devices Implanted Type Area Software Configuration Engineer Device Identifier Shelf Expiration Date Model / Serial / Lot Icd ICD Heart Pacemaker Pacemaker Heart Description:PACEMAKER/ICD Stent Implanted:Qty: 2 Stent Heart Yo Vascular Defib Cardiac [id number] [place] Hf Df4 Is-4 Is-1 Cnctr [id number] - [id number] - [id number] Implanted:Qty: 1 on 10/28/2023 by Eric Ojeda MD at [facility] Yo Vascular 08/25/2025 [id number] / [id number] / Procedures Procedure Name Priority Date/Time Associated [...] Other Narrative 01/08/2025 10:41 AM CDT Yo [place] BIV ICD. Dx; CHF, SSS. Afib, AV Node Ablation. DOI 10/28/2023-Lynette. Chronic leads 05/25/2015. [place] remote monitoring. Unscheduled remote due to patient [...] Other Narrative 01/08/2025 10:39 AM CDT Yo [place] BIV ICD. Dx; CHF, SSS. Afib, AV Node Ablation. DOI 10/28/2023-Santiagoanda. Chronic leads 05/25/2015. Sav remote monitoring. LV lead is a Medtronic lead and therefor the device is Not MRI conditional d/t Rock My World products. Supervising MD: Dr Whittaker. Left pectoral [...] Modality Other Narrative 12/03/2024 8:25 AM CDT SOLO BIV ICD. Dx; CHF, SSS. Afib, AV Node Ablation. DOI 10/28/2023-Lynette. Chronic leads 05/25/2015. [place] remote monitoring. LV lead is a Buzz All Stars lead and therefore the device is Not MRI conditional d/t Rock My World products. Dr Jovan Beltran-original device implanter in [...] mg, Follow up: Office Pacemaker/ICD scheduled 12/30/24 [place] remote 4 months Capo Wade RN Jarett Yousif MD CV CARDIAC SERVICES PROC EDURES Final Result from Last [address] [facility] MEDICARE ADVANTAGE MEDICARE [facility] MEDICARE ADVANTAGE UHC MEDICARE ADVANTAGE Care Teams Publication Manager Relationship Specialty Start Date End Date Ruddy Yang MD [address] [place] [address] PCP - General Internal Medicine 01/02/21
--- OUTSIDE RECORDS SUMMARY | 2025-01-20 13:21 | XMS_ITS | Data Portability ---
Author Organization [employer], Main Office Address [address] [place] [address] Care Team Providers Care Acidizer Helper Name Role Phone LYNDSAY BERNARD Primary Care Provider CHUCHO MIRANDA Goldsmith Apprentice Assessment No assessment recorded. Plan of Treatment [...] By Organization Details Last Modified Time 08/06/2024 [id number] it is unknown whether not he will pass his cardiac clearance and his son is concerned about the risk were dean in any case. We will set up open reduction nasal fracture until a decision is established [facility] Not available 08/06/2024 12:42:45 Reason for Referral None Reported. Problems Name Problem SNOMED Code Status Onset Date Resolution Date Notes Provider Name and Address Organization Details Recorded Time Closed fracture of nasal bones 99870271 Active 024 Glen Mayen MD [address], [address] , [employer] [facility] 12:42:25 Problem Notes None recorded. Procedures Surgical History Date Name Laterality Status Provider Name and Address Organization Details Recorded Time 08/26/19 13 cholecystectomy completed Malorie Elizabeth RN [employer] [facility] 08/06/2024 17:58:37 Imaging Results None recorded. Procedure Notes None recorded. Medical Equipment None Reported. Allergies Allergen ID Allergen Name Allergen Category Reaction Reaction Severity Criticality Documentation Date Start Date Code Code System Note Provider Name and Address Organization Details Recorded Time 58338 Oxycontin medicatio n Not available Not available Not available 08/06/2024 18132 6 RxNorm Malorie Elizabeth RN null, [place] - [facility] 4 12:26:30 Medications Name Sig Start [...] Address Organization Details Last Updated DateTime 08/06/2024 67547.92 g 26.4 kg/m2 172.72 cm 98 [degF] Malorie Elizabeth RN [facility] [employer] 08/06/2024 12:24:19 Social History None recorded. Functional [...] SNOMED-CT Code Diagnosis ICD10 Code Diagnosis Note [id number] Glen Mayen MD [facility] [address] [place] [address] 08/06/2024 11:56:02 08/20/2024 10:43:43 Closed fracture of nasal bones 44556336 S02.2XXA Health Concerns Section Related Observation LastModified by Organization Detai ls LastModified Time None Recorded Concern Status LastModified by Organization Details LastModified Time None Recorded Advance Directives Directive None Recorded Payers Encounter Date Sequence Insurance Name Policy Number Policy De Jesus Covered Member ID De Jesus Member ID Guarantor Name 08/06/2024 1 [facility] (MEDICARE REPLACEMENT/A DVANTAGE - HMO) [id number] Jovan Rodas [id number] Jovan Rodas Notes Date Note Type Note Provider Name and Address Organization Details Recorded Time 08/06/2024 text/html This patient fel l and fractured his nose. There is a prominent external visible displacement of his nasal bones. He does have a significant cardiac history. Glen Mayen MD [address] [place] [address], [place] [address], [place], [address], [facility] [employer] 08/06/2024 12:43:01
--- OUTSIDE RECORDS SUMMARY | 2025-01-20 13:21 | XMS_ITS | Clinical Summary ---
Author Organization [facility] Address [address], [facility] [address] [place] [address] Phone Care Team Providers Care Queen'S Counsel Name Role Phone Provider, Not On File [...] drink = 0.6 oz pur e alcohol) [facility] Utilities Answer Date Recorded In the past 12 months has [employer], Kontron, or water [employer] threatened to shut off services in your home? Patient declined 09/24/2023 Social Connection and Isolation Panel [NHANES] A nswer Date Recorded In a typical week, how many times do you talk on the phone with family, friends, or neighbors? Patient declined 09/24/2023 How often do you get togethe r with friends or relatives? Patient declined 09/24/2023 How often do you attend nondenominational or mormon serv ices? Patient declined 09/24/2023 Do you belong to any clubs o r organizations such as nondenominational groups, unions, fraternal or athletic groups, or [...] Answer Date Recorded PHQ-2 Score 0 04/27/2019 [facility] - Occupational Stress Questionnaire Answer [...] place to sleep or slept in a skilled nursing (including now)? Patient declined 09/24/2023 Sex and Gender Information Value Date Recorded Sex Assigned at Not on file Legal Sex Male 2:21 PM TINT LAYER Gender Identity Not on file Sexual Orientation Not on file Last Filed Vital Signs Vital Sign Reading Time Taken Comments Blood Pressure 150/84 09/26/2023 8:00 AM TINT LAYER Pulse 74 09/26/2023 8:00 AM TINT LAYER Temperature 35.9 C (96.7 F) 09/26/2023 8:33 AM TINT LAYER Respiratory Rate 20 09/26/2023 8:00 AM TINT LAYER Oxygen Saturation 97% 09/26/2023 8:0 0 AM TINT LAYER Inhaled Oxygen Concentration - - Weight 77.5 kg (170 lb 12.8 oz) 09/26/2023 5:55 AM TINT LAYER daily weight Height 172.7 cm (5' 8) 09/24/2023 3:06 PM TINT LAYER Body Mass Index 25.97 09/24/2023 3:06 PM TINT LAYER Plan of Treatment Health Maintenance Due Date [...] patient's age to complete this topic Insurance Member Subscriber Plan / Payer ( fective 2006-Present) Name:Jovan Rodas Member ID:[id number] Relation to Subscriber:Self Name:Jovan Rodas Subscriber ID:[id number] Payer ID:[id number] Group ID:Not on file Type:Not on file Address: [place] [address] [place] [address] [facility] MEDICARE Member Subscriber Plan / Payer ( fective 2006-Present) Name:Jovan Rodas Member ID:[id number] Relation to Subscriber:Self Name:Jovan Rodas Subscriber ID:[id number] Payer ID:[id number] Group ID:Not on file Type:Not on file Address: [place] [id number] [place] [address] [facility] MEDICARE C [facility] Advance Directives * Full Code (Latest Code Status on File) Date Activated Date Inactivated Comments 09/24/2023 4:08 PM 09/26/2023 3:01 PM CPR-Full Cristiane tment: FULL ARREST: Attempt Resuscitation/CPR wit intubation and mechanical ventilation. PRE-ARREST: Use entire range of life support measures to stabilize the patient. Care Teams Queen'S Counsel Relationship Specialty Start Date End Date Provider, Not On File [place] PCP - General 09/26/23
--- OUTSIDE RECORDS SUMMARY | 2025-01-20 13:21 | XMS_ITS | Clinical Summary ---
Author Organization [facility] Address [address] [place] [address] Phone Care Team Providers Care 911 Emergency Services Dispatcher Name Role Phone Unavailable Primary Care Provider [...] daily. Active fluticasone propionate (FLONASE) 50 mcg/spray [place], Suspension nasal inhaler Administer 2 Sprays in each nostril daily. Active ipratropium bromide (ATROVENT) 42 mcg (0.06 %) [place], Non-Aerosol Administer 2 Sprays in each nostril [...] on file Legal Sex Male 11:34 AM MARINE ENGINEER CPV[employer] Gender Identity Not on file Sexual Orientation Not on file Last Filed Vital Signs Vital Sign Reading Time Taken Comments Blood Pressure 140/77 10/22/2022 10:05 AM MARINE ENGINEER [employer]PVEC Pulse 70 10/22/2022 10:01 AM MARINE ENGINEER [facility]PV[employer] Temperature 35.7 C (96.3 F) 10/22/2022 10:01 AM MARINE ENGINEER [employer]PVEC Respiratory Rate 10 10/22/2022 10:0 1 AM MARINE ENGINEER CPVEC Oxygen Saturation 98% 10/22/2022 10: 01 AM MARINE ENGINEER [facility]PVEC Inhaled Oxygen Concentration - - Weight 81.5 kg (179 lb 11.2 oz) 023 10:01 AM MARINE ENGINEER [employer]PV[employer] Height 172.7 cm (5' 8) 03/21/2022 11:1 3 AM CDT Body Mass [...] Sig/CT Colonography Q 5 years Discontinued Insurance [place] [id number]
--- OUTSIDE RECORDS SUMMARY | 2025-01-20 13:22 | XMS_ITS | Data Portability ---
Author Organization [facility], [address] [facility] Neurology ([place]) Address [address] [place] [address] Care Team Providers Care Livestock Auctioneer Name Role Phone LYNDSAY BERNARD Primary Care [...] nortripty line 10 mg capsule 2023 024 [email or web address] [facility] [address], [address], 04/30/2024 14:03:08 Patient TargetsNo targets recorded. 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 Please review this document and add these problems to the patient's chart manually as needed. Problem Notes None recorded. Medical Equipment None Reported. Allergies Allergen ID Allergen Name Allergen Category Reaction Reaction Severity Criticality Documentation Date Start Date Code Code System Note Provider Name and Address Organization Details Recorded Time 029135 Oxycontin medicatio n Not available Not available Not available 09/23/20232015 32781 6 RxNorm Comme nt: React ion Date: 30 Nov 2010 ; Not Available [facility] 4 22:09:33 [id number] Substance with sulfonami de structure and antibacte rial mechanism of action (substanc e) medicatio n Not available Not available Not available 09/23/20232015 23050 8003 SNOMED Comme nt: React ion Date: 29 May 2011 ; Not Available [facility] 4 22:09:33 Medications Name Sig Start Date [...] Address Organization Details Last Updated DateTime 4 [address]282.7 4 g 24.7 kg/m2 173.99 cm 61 /min 124 mm[Hg] 68 mm[Hg] [facility] 4 13:10:51 Social History None recorded. Functional Status None recorded. Mental Status None recorded. Family History Nothing Reported. Medical History No medical history recorded. Past Encounters Encounter ID Performer Location Encounter Start Date Encounter Closed Date Diagnosis/Indication Diagnosis SNOMED-CT Code Diagnosis ICD10 Code Diagnosis Note [id number] Mayra Rowell MD [facility] Specialty Neurology ([place]) [address] [place] [address] 04/30/2024 13:03:23 05/03/2024 06:26:37 Idiopathic progressive polyneuropathy 63986975 G60.3 Health Concerns Section Related Observation LastModified by Organization Detai ls LastModified Time None Recorded Concern Status LastModified by Organization Details LastModified Time None Recorded Advance Directives Directive None Recorded Payers Insurance Date Sequence Insurance Name Policy Number Policy De Jesus Covered Member ID De Jesus Member ID Guarantor Name 05/03/2024 1 [facility] (MEDICARE REPLACEMENT/A DVANTAGE - PPO) [id number] Jovan Johnson Clark [id number] Jovan Alex Clark Notes Date Note Type Note Provider Name [...] or a wheelchair.SKK Mayra Rowell MD [address], [address], [facility] 05/01/2024 19:00:20
[2025-01-20 13:46] LABS: Basophils Absolute Auto 0.02 K/mm3 (0.00-0.10); Basophils Percent Auto 0.4 % (0.0-1.0); Eosinophils Absolute Auto 0.16 K/mm3 (0.02-0.50); Eosinophils Percent Auto 3.2 % (1.0-6.0); Hematocrit 23.4 % (37.0-46.0); Hemoglobin 7.2 g/dL (12.4-15.3); Immature Granulocyte Absolute 0.02 K/mm3 (0.00-0.00); Immature Granulocyte Percent A 0.4 % (0.0-0.0); Lymphocytes Absolute Auto 0.93 K/mm3 (1.10-4.50); Lymphocytes Percent Auto 18.9 % (18.0-42.0); Mean Corpuscular HGB Conc 30.8 g/dL (32-36); Mean Corpuscular Hemoglobin 31.3 pg (27.0-31.0); Mean Corpuscular Volume 101.7 fL (78.0-102.0); Mean Platelet Volume 9.7 fl (8.7-11.0); Monocytes Absolute Auto 0.64 K/mm3 (0.10-0.90); Neutrophils Absolute Auto 3.16 K/mm3 (1.70-7.20); Neutrophils Percent Auto 64.1 % (50.0-70.0); Platelet Count Result 124 K/mm3 (150-420); Red Cell Distribution Width 15.2 % (11.6-14.4); White Blood Count 4.9 K/mm3 (4.8-10.8)
[2025-01-20 14:24] LABS: Alanine Aminotransferase 14 U/L (6-50); Albumin Level 3.9 g/dL (3.5-5.1); Alkaline Phosphatase 39 U/L (38-126); Anion Gap 7 mmol/L (4-12); Aspartate Amino Transferase 23 U/L (17-59); Bilirubin,Total 0.7 mg/dL (0.2-1.3); Blood Urea Nitrogen 26 mg/dL (9-20); Calcium 8.6 mg/dL (8.4-10.2); Carbon Dioxide 25 mmol/L (22-30); Chloride 106 mmol/L (98-107); Estimated Glomerular Filt Rate 45; Glucose 116 mg/dL (65-110); Iron 35 ug/dL (49-181); Osmolality Calculated 291 mOsm/kg (285-295); Potassium 3.6 mmol/L (3.4-5.0); Sodium 138 mmol/L (137-145); Total Protein 6.3 g/dL (6.3-8.2)
[2025-01-20 14:34] LABS: NT Pro B Type Natriuretic Pept 3560 pg/mL (19.9-100)
[2025-01-20 14:41] LABS: Free T3 2.83 pg/mL (2.18-3.98)
[2025-01-20 14:42] LABS: Free T4 Free Thyroxine 0.83 ng/dL (0.78-2.19)
== END 2025-01-20 13:13 | disposition home or self-care (01) ==
LOC: CHSLAB 13:16
PROVIDERS: PCP Internal Medicine; Visit Provider Internal Medicine
DX: I50.9 Heart failure, unspecified (principal); R53.83 Other fatigue
CPT/HCPCS: 36415; 80053; 82607; 82728; 83540; 83880; 84439; 84443; 84481; 85025

== ENCOUNTER 2025-01-20 14:57 | Emergency (ER) | payer MEDICARE, SELFPAY ==
[2025-01-20] VITALS (14 sets, daily range): BP systolic 110–143; BP diastolic 62–90; PULSE 70–80; RESP 16–20; TEMP 36.6; O2SAT 97–99
--- OUTSIDE RECORDS SUMMARY | 2025-01-20 15:01 | XMS_ITS | Clinical Summary ---
Author Organization [facility] Address [address], [facility] [address] [place] [address] Phone Care Team Providers Care Business Process Associate Name Role Phone Provider, Not On File [...] drink = 0.6 oz pur e alcohol) [facility] Utilities Answer Date Recorded In the past 12 months has [employer], [employer], or water [employer] threatened to shut off services in your home? Patient declined 09/24/2023 Social Connection and Isolation Panel [NHANES] A nswer Date Recorded In a typical week, how many times do you talk on the phone with family, friends, or neighbors? Patient declined 09/24/2023 How often do you get togethe r with friends or relatives? Patient declined 09/24/2023 How often do you attend latter day or anabaptist serv ices? Patient declined 09/24/2023 Do you belong to any clubs o r organizations such as latter day groups, unions, fraternal or athletic groups, or [...] 04/27/2019 [facility] - Occupational Stress Questionnaire Answer Date [...] place to sleep or slept in a residential (including now)? Patient declined 09/24/2023 Sex and Gender Information Value Date Recorded Sex Assigned at Not on file Legal Sex Male 2:21 PM DRAPERY AND UPHOLSTERY ESTIMATOR Gender Identity Not on file Sexual Orientation Not on file Last Filed Vital Signs Vital Sign Reading Time Taken Comments Blood Pressure 150/84 09/26/2023 8:00 AM DRAPERY AND UPHOLSTERY ESTIMATOR Pulse 74 09/26/2023 8:00 AM DRAPERY AND UPHOLSTERY ESTIMATOR Temperature 35.9 C (96.7 F) 09/26/2023 8:33 AM DRAPERY AND UPHOLSTERY ESTIMATOR Respiratory Rate 20 09/26/2023 8:00 AM DRAPERY AND UPHOLSTERY ESTIMATOR Oxygen Saturation 97% 09/26/2023 8:0 0 AM DRAPERY AND UPHOLSTERY ESTIMATOR Inhaled Oxygen Concentration - - Weight 77.5 kg (170 lb 12.8 oz) 09/26/2023 5:55 AM DRAPERY AND UPHOLSTERY ESTIMATOR daily weight Height 172.7 cm (5' 8) 09/24/2023 3:06 PM DRAPERY AND UPHOLSTERY ESTIMATOR Body Mass Index 25.97 09/24/2023 3:06 PM DRAPERY AND UPHOLSTERY ESTIMATOR Plan of Treatment Health Maintenance Due Date [...] patient's age to complete this topic Insurance [facility] MEDICARE [facility] MEDICARE C [facility] Advance Directives * Full Code (Latest Code Status on File) Date Activated Date Inactivated Comments 09/24/2023 4:08 PM 09/26/2023 3:01 PM CPR-Full Cristiane tment: FULL ARREST: Attempt Resuscitation/CPR wit intubation and mechanical ventilation. PRE-ARREST: Use entire range of life support measures to stabilize the patient. Care Teams Business Process Associate Relationship Specialty Start Date End Date Provider, Not On File MA PCP - General 09/26/23
--- OUTSIDE RECORDS SUMMARY | 2025-01-20 15:01 | XMS_ITS | Referral Summary ---
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; Chronic coronary artery disease; Permanent atrial fibrillation (HCC); Primary hypertension; Hypercholesterolemia; S/P TAVR (transcatheter aortic valve replacement) 01/06/2025 Orders Only [address] [phone] Iker Ponce MD 01/04/2025 8:00 AM CDT Ancillary Procedure [address] [place] [phone] ICD (implantable cardioverter-defibrilla tor) in place; Permanent atrial fibrillation (HCC); 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; S/P AV josué ablation; Congestive heart failure, unspecified HF chronicity, unspecified heart failure type (HCC) 01/04/2025 Telephone [place] [address] [place] [phone] Jarett Yousif MD 12/30/2024 Orders Only [facility] Cardiology [address] [place] [address] [place], [place] [address] [place] [address] Jarett Yousif MD ICD (implantable cardioverter-defibrilla tor) in place (Primary Dx); Permanent atrial fibrillation (HCC); 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; S/P AV josué ablation; Congestive heart failure, unspecified HF chronicity, unspecified heart failure type (HCC) 12/30/2024 10:00 AM CDT Ancillary Procedure [facility] Cardiology [address] [place] [address] [place] [phone] Longstanding persistent atrial fibrillation (HCC); SSS (sick sinus syndrome) (HCC); Congestive heart failure, unspecified HF chronicity, unspecified heart failure type (HCC); 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; History of atrioventricular josué ablation 12/29/2024 Telephone [facility] Cardiology [address] [place] [address] [place] [phone] Jarett Yousif MD 12/04/2024 11:30 AM CDT Office Visit [facility] Cardiology [address] [place] [address] [place] [phone] Letitia Kumar NP Coronary artery disease of [place] heart with stable angina pectoris, unspecified vessel or lesion type (Primary Dx); 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; Permanent atrial fibrillation (HCC); Chronic anticoagulation 11/24/2024 8:45 AM CDT Ancillary Procedure [facility] Cardiology [address] [place] [address] [place] [address] [place] [address] 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 (Primary Dx); Cardiomyopathy, unspecified type (HCC); SSS (sick sinus syndrome) (HCC); Permanent atrial fibrillation (HCC); Congestive heart failure, unspecified HF chronicity, unspecified heart failure type (HCC) 11/09/2024 8:45 AM CDT Office Visit [facility] Cardiology [address] [place] [address] Jarett Yousif MD Biventricular ICD [...] tablet/capsul e (10 mEq total) by mouth career development coordinator before breakfast [address] (CYMBALTA) [...] 09/02/2022 Assessment & Plan (07/03/2023 10:35 AM RAILROAD BRAKE OPERATOR): Hearing test Flonase 2 sprays into [...] 07/03/2023 Assessment & Plan (07/03/2023 10:35 AM RAILROAD BRAKE OPERATOR): Hearing test Flonase 2 sprays into [...] (07/11/2022): Added automatically from request for surgery [id number] Pain associated with wound 06/28/2022 S/P TAVR (transcatheter aortic valve replacement ) 05/16/2021 Hx of CABG 02/07/2021 Permanent atrial fibrillation 02/07/2021 ICD (implantable cardioverter-defibrillator) in place 02/07/2021 History of coronary artery stent placement 02/07 Biventricular ICD (implantab le cardioverter-defibrillator) in place 01/04/2021 Overview (10/28/2023): OPHTHONIX BIV ICD. Dx; CHF, SSS. Afib, AV Node Ablation. DOI 10/28/2023- Lynette. Chronic leads 05/25/2015. [employer] remote monitoring. LV lead is a Medtronic lead and therefore the device is Not MRI conditional d/t [employer] inc products. 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 Gender Identity Not on file Sexual Orientation Not on file Last Filed Vital Signs Vital Sign Reading Time Taken Comments Blood Pressure 122/70 01/07/2025 12:35 PM CDT Pulse 71 01/07/2025 12:35 PM CDT Temperature 36.1 C (97 F) 10/28/2023 1:26 PM RAILROAD BRAKE OPERATOR Respiratory Rate 14 01/07/2025 12:35 PM CDT Oxygen Saturation 95% 01/07/2025 12:35 PM CDT Inhaled Oxygen Concentration - - Weight 76.2 kg (168 lb) 01/07/2025 12:35 PM CDT Height 172.7 cm (5' 8) 01/07/2025 12:35 PM CDT Body Mass Index 25.54 01/07/2025 12:35 PM CDT Plan of Treatment Not on file Medical Devices Implanted Type Area Check And Transfer Beader Device Identifier Shelf Expiration Date Model / Serial / Lot Icd ICD Heart Pacemaker Pacemaker Heart Description:PACEMAKER/ICD Stent Implanted:Qty: 2 Stent Heart Yo Vascular Defib Cardiac [id number] [place] Hf Df4 Is-4 Is-1 Cnctr [id number] - [id number] - [id number] Implanted:Qty: 1 on 10/28/2023 by Eric Ojeda MD at [facility] Yo Vascular 08/25/2025 [id number] / [id number] / Procedures Procedure Name Priority Date/Time Associated [...] Other Narrative 01/08/2025 10:41 AM CDT Yo [place] BIV ICD. Dx; CHF, SSS. Afib, AV Node Ablation. DOI 10/28/2023-Lynette. Chronic leads 05/25/2015. [employer] remote monitoring. Unscheduled remote due to patient [...] Other Narrative 01/08/2025 10:39 AM CDT Yo [place] BIV ICD. Dx; CHF, SSS. Afib, AV Node Ablation. DOI 10/28/2023-Santiagoanda. Chronic leads 05/25/2015. Sav remote monitoring. LV lead is a Medtronic lead and therefor the device is Not MRI conditional d/t [employer] products. Supervising MD: Dr Whittaker. Left pectoral [...] Modality Other Narrative 12/03/2024 8:25 AM CDT OPHTHONIX BIV ICD. Dx; CHF, SSS. Afib, AV Node Ablation. DOI 10/28/2023-Lynette. Chronic leads 05/25/2015. [employer]ier remote monitoring. LV lead is a Guang Lian Shi Dai lead and therefore the device is Not MRI conditional d/t [employer] products. Dr Jovan Beltran-original device implanter in [...] mg, Follow up: Office Pacemaker/ICD scheduled 12/30/24 Angier remote 4 months Capo Wade RN Jarett Yousif MD CV CARDIAC SERVICES PROC EDURES Final Result from Last 3 Months Insurance [facility] MEDICARE AD[facility] Address: [address] [address] [place] [address] MEDICARE [facility] MEDICARE ADVANTAGE [facility] Address: [address] [address] [place] [address] [employer] MEDICARE ADVANTAGE [facility] Address: [address] [address] [place] [address] Care Teams Clinical Rn Relationship Specialty Start Date End Date Ruddy Yang MD [address] [place] [address] PCP - General Internal Medicine 01/02/21
--- OUTSIDE RECORDS SUMMARY | 2025-01-20 15:02 | XMS_ITS | Clinical Summary ---
Author Organization [facility] Address [address] [facility] [place] [address] Phone Care Team Providers Care International Relations Teacher Name Role Phone Unavailable Primary Care Provider [...] daily. Active fluticasone propionate (FLONASE) 50 mcg/spray [place], Suspension nasal inhaler Administer 2 Sprays in each nostril daily. 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 Gender Identity Not on file Sexual Orientation Not on file Last Filed Vital Signs Vital Sign Reading Time Taken Comments Blood Pressure 140/77 10/22/2022 10:05 AM MOTOR VEHICLE OR CARAVAN SALESPERSON Pulse 70 10/22/2022 10:01 AM MOTOR VEHICLE OR CARAVAN SALESPERSON Temperature 35.7 C (96.3 F) 10/22/2022 10:01 AM MOTOR VEHICLE OR CARAVAN SALESPERSON Respiratory Rate 10 10/22/2022 10:0 1 AM MOTOR VEHICLE OR CARAVAN SALESPERSON Oxygen Saturation 98% 10/22/2022 10: 01 AM MOTOR VEHICLE OR CARAVAN SALESPERSON Inhaled Oxygen Concentration - - Weight 81.5 kg (179 lb 11.2 oz) 023 10:01 AM MOTOR VEHICLE OR CARAVAN SALESPERSON Height 172.7 cm (5' 8) 03/21/2022 11:1 [...] Sig/CT Colonography Q 5 years Discontinued Insurance [place] [id number]
--- OUTSIDE RECORDS SUMMARY | 2025-01-20 15:02 | XMS_ITS | Clinical Summary ---
Author Organization [facility] [address] [facility] [address] Address [address] [place] [address] Care Team Providers Care Employment Agency Manager Name Role Phone Ruddy Yang MD Primary Care Provider + [phone] Allergies Active Allergy Reactions Criticality Noted Date [...] e (10 mEq total) by mouth early years teacher before breakfast [address] (CYMBALTA) [...] 09/02/2022 Assessment & Plan (07/03/2023 10:35 AM CONFIDENTIAL SECRETARY): Hearing test Flonase 2 sprays into each [...] 07/03/2023 Assessment & Plan (07/03/2023 10:35 AM CONFIDENTIAL SECRETARY): Hearing test Flonase 2 sprays into each [...] (07/11/2022): Added automatically from request for surgery [id number] Pain associated with wound 06/28/2022 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 Dx; CHF, SSS. Afib, AV Node Ablation. DOI 10/28/2023- Lynette. Chronic leads 05/25/2015. [place] [employer] remote monitoring. LV lead is a Medtronic lead and therefore the device is Not MRI conditional d/t [employer] products. Dr Jovan Beltran-original device implanter in 2014. Osteoarthritis of lumbar spine 08/10/2015 Hypertension 01/29/2014 Overview (11/30/2016): High blood pressure Chronic coronary artery disease 01/29/2014 Overview (11/30/2016): Coronary artery disease Chronic obstructive pulmonary disease 01/29/2014 Overview (11/30/2016): COPD Hypercholesterolemia 01/29/2014 Overview (11/30/2016): High cholesterol Lumbago 02/04/2009 Encounters Date Type Department Care Team Description 01/07/2025 1:00 PM CDT Office Visit [facility] Cardiology [address] [place] [phone] Kary Rayo NP 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 heart failure (HCC) (Primary Dx); 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; Chronic coronary artery disease; Permanent atrial fibrillation (HCC); Primary hypertension; Hypercholesterolemia; S/P TAVR (transcatheter aortic valve replacement) 01/06/2025 Orders Only [facility] Cardiology [address] [place] [address] [place] [phone] Iker Ponce MD 01/04/2025 8:00 AM CDT Ancillary Procedure [facility] Cardiology [address] [place] [address] [place] [phone] ICD (implantable cardioverter-defibrilla tor) in place; Permanent atrial fibrillation (HCC); 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; S/P AV josué ablation; Congestive heart failure, unspecified HF chronicity, unspecified heart failure type (HCC) 01/04/2025 Telephone [facility] Cardiology [address] [place] [address] [address] [place] [phone] Jarett Yousif MD 12/30/2024 10:00 AM CDT Ancillary Procedure [facility] Cardiology [address] [place] [address] [place] [phone] Longstanding persistent atrial fibrillation (HCC); SSS (sick sinus syndrome) (HCC); Congestive heart failure, unspecified HF chronicity, unspecified heart failure type (HCC); 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; History of atrioventricular josué ablation 12/30/2024 Orders Only [facility] Cardiology [address] [place] [address] [place] [phone] Jarett Yousif MD ICD (implantable cardioverter-defibrilla tor) in place (Primary Dx); Permanent atrial fibrillation (HCC); 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; S/P AV josué ablation; Congestive heart failure, unspecified HF chronicity, unspecified heart failure type (HCC) 12/29/2024 Telephone [facility] Cardiology [address] [place] [address] [place] [phone] Jarett Yousif MD 12/04/2024 11:30 AM CDT Office Visit [facility] Cardiology [address] [place] [address] [place] [phone] Letitia Kumar NP Coronary artery disease of [place] heart with stable angina pectoris, unspecified vessel or lesion type (Primary Dx); 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; Permanent atrial fibrillation (HCC); Chronic anticoagulation 11/24/2024 8:45 AM CDT Ancillary Procedure [facility] Cardiology [address] [place] [address] [place] [phone] 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 (Primary Dx); Cardiomyopathy, unspecified type (HCC); SSS (sick sinus syndrome) (HCC); Permanent atrial fibrillation (HCC); Congestive heart failure, unspecified HF chronicity, unspecified heart failure type (HCC) 11/09/2024 8:45 AM CDT Office Visit [facility] Cardiology [address] [place] [address] Jarett Yousif MD Biventricular ICD [...] on file Legal Sex Male 1:59 AM CONFIDENTIAL SECRETARY Gender Identity Not on file Sexual Orientation Not on file Obstetrics History Last Filed Vital Signs Vital Sign Reading Time Taken Comments Blood Pressure 122/70 01/07/2025 12:35 PM CDT Pulse 71 01/07/2025 12:35 PM CDT Temperature 36.1 C (97 F) 10/28/2023 1:26 PM CONFIDENTIAL SECRETARY Respiratory Rate 14 01/07/2025 12:35 PM CDT [...] 06/28/2030 06/28/2020 Medical Devices Implanted Type Area Proposal Coordinator Device Identifier Shelf Expiration Date Model / Serial / Lot Icd ICD Heart Pacemaker Pacemaker Heart Description:PACEMAKER/ICD Stent Implanted:Qty: 2 Stent Heart Yo Vascular Defib Cardiac [id number] [place] Hf Df4 Is-4 Is-1 Cnctr [id number] - [id number] - [id number] Implanted:Qty: 1 on 10/28/2023 by Eric Ojeda MD at [facility] Vascular 08/25/2025 [id number] / [id number] / Procedures Procedure Name Priority Date/Time Associated [...] Other Narrative 01/08/2025 10:41 AM CDT Yo [place] BIV ICD. Dx; CHF, SSS. Afib, AV Node Ablation. DOI 10/28/2023-Lynette. Chronic leads 05/25/2015. [employer] remote monitoring. Unscheduled remote due to patient [...] Lasix, potassium, amongst others. See scanned report. [place] remote follow-up 04/06/2025. ROV with Dr. Yousif 05/20/2025. Ning Johansen RN Jarett Yousif MD CV CARDIAC SERVICES PROC EDURES Final Result * DEVICE CHECK - IN OFFICE (12/30/2024 9:48 AM CDT) Anatomical Region Laterality Modality Other Narrative 01/08/2025 10:39 AM CDT Yo [place] BIV ICD. Dx; CHF, SSS. Afib, AV Node Ablation. DOI 10/28/2023-Santiago. Chronic leads 05/25/2015. Sav remote monitoring. LV lead is a Medtronic lead and therefor the device is Not MRI conditional d/t [employer] products. Supervising MD: Dr Whittaker. Left pectoral [...] based on patient's response to today's adjustments. [place] remote f/u 04/06/2025. Ning Johansen RN Jarett Yousif MD CV CARDIAC SERVICES PROC EDURES Final Result * DEVICE CHECK - REMOTE (11/24/2024 10:05 AM CDT) Anatomical Region Laterality Modality Other Narrative 12/03/2024 8:25 AM CDT [place] BIV ICD. Dx; CHF, SSS. Afib, AV Node Ablation. DOI 10/28/2023-Lynette. Chronic leads 05/25/2015. Sav remote monitoring. LV lead is a Sprout [employer] lead and therefore the device is Not MRI conditional d/t [employer] products. Dr Jovan Beltran-original device implanter in [...] mg, Follow up: Office Pacemaker/ICD scheduled 12/30/24 [place] remote 4 months Capo Wade RN Jarett Yousif MD CV CARDIAC SERVICES PROC EDURES Final Result from Last 3 Months Insurance [facility] MEDICARE ADVANTAGE [facility] Address: [address] [address] [place] [address] MEDICARE [facility] MEDICARE ADVANTAGE [facility] Address: [address] [address] [place] [address] [facility] MEDIC[facility]AGE [facility] Address: [facility] [address] [place] [address] Care Teams Employment Agency Manager Relationship Specialty Start Date End Date Ruddy Yang MD [address] [place], [place] [id number] PCP - General Internal Medicine 01/02/21
--- OUTSIDE RECORDS SUMMARY | 2025-01-20 15:02 | XMS_ITS | Clinical Summary ---
Author Organization [facility] Address [address] [place] [address] Care Team Providers Care Parts Sales Manager Name Role Phone Rudyd Yang MD Primary Care Provider [phone] Source Comments [facility],non-owned Affiliates and Associated Physician Practices is amultiple site organization consisting of ambulatory clinics and hospital sitesin [place], [place] and [place]. This disclosure is being madepursuant to the Care Everywhere program and may not contain all information available regarding this patient. 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 Gender Identity Not on file [...] age to complete this topic Insurance MEDICARE [facility] MEDICARE MEDICARE SELF PAY NO INSURANCE Member Subscriber Plan / Payer (Ef fective for All Dates) Name:Elida Davidson Naty Member ID:Not on file Relation to Subscriber:Not on file Name:ELIDA DAVIDSON Subscriber ID:Not on file (Home) Address: [address] [place] [address] Payer ID:Not on file Group ID:Not on file Type:Self Pay Address: [facility] MANAGED MEDICARE ADV * Guarantor: ELIDA DAVIDSON Account Type Relation to Patient Date of Phone Billing Address Personal/Family Spouse [id number] [place] [address] SELF PAY NO INSURANCE Member Subscriber Plan / Payer (Ef fective for All Dates) Name:Elida Davidson Naty Member ID:Not on file Relation to Subscriber:Not on file Name:ELIDA DAVIDSON Subscriber ID:Not on file (Home) Address: [address] [place] [address] Payer ID:Not on file Group ID:Not on file Type:Self Pay Address: [place], [place] SELF PAY NO INSURANCE Member Subscriber Plan / Payer (Ef fective for All Dates) Name:Elida Davidson Member ID:Not on file Relation to Subscriber:Not on file Name:ELIDA DAVIDSON Subscriber ID:Not on file (Home) Address: [address] [place] [address] [place] [address] Payer ID:Not on file Group ID:Not on file Type:Self Pay Address: [facility] MANAGED MEDICARE ADV Care Teams Parts Sales Manager Relationship Specialty Start Date End Date Ruddy Yang MD PCP - General 07/08/20
--- OUTSIDE RECORDS SUMMARY | 2025-01-20 15:02 | XMS_ITS | Clinical Summary ---
Author Organization [facility] Address [address] [place] [address] Phone Care Team Providers Care Ecommerce Manager Name Role Phone Ruddy Yang MD Primary Care Provider [phone] Allergies Active Allergy Reactions Criticality Noted Date [...] Node Ablation. DOI 05/25/[address] Jovan Beltrna. Sav remote monitoring. Permanent atrial fibrillation 04/04/2017 [...] Ended) 2025 04/26/20 15, 06/26/2014 Insurance MEDICARE [facility] Care Teams Ecommerce Manager Relationship Specialty Start Date End Date Ruddy Yang MD [address] [place] [address] PCP - General Internal Medicine 12/19/20
--- NOTE | 2025-01-20 15:21 | ED_ITS ---
HPI - GI Bleed General Chief complaint: GI Bleed Stated complaint: gi bleed, anemia Source: patient Mode of arrival: ambulatory Limitations: no limitations History of Present Illness HPI Narrative: 84-year-old male with a history of smoking, hypertension, CAD status post stents, status post CABG in , atrial fibrillation status post ablation on Eliquis, status post Bi V ICD, status post TAVR, CHF, CKD, dyslipidemia, gout, BPH status post TURP, COPD, acute on chronic renal failure, chronic thrombocytopenia,history of GI bleed status post colonoscopy in April of 2022 which revealed diverticular bleed, angiodysplasia of the small intestine was seen in the ED on 01/13/2025 for generalized weakness, anemia with an H&H of 8.6/26.7, compensated CHF and acute on chronic renal failure. The patient presented to his primary care physician and was noted to have an H&H of 7.2/23.4 and a platelet count of 124. The patient's blood counts had been stable till September of 2024. Last blood work on 01/05 was noted to be 9.9/30.8. Repeat blood work on 01/13 was noted to be 8.6/26.1. His blood count today was noted to be 7.2/23.4 He was also noted to have guaiac-positive stools. Patient has had chronic thrombocytopenia. Patient is on aspirin, Eliquis 2.5 b.i.d. no hematemesis no melena or hematochezia. No abdominal pain patient went to his primary care physician for generalized weakness and dizziness. Patient is hemodynamically stable. MD complaint: other ( guaiac-positive stool) Context: history of GI bleed Associated symptoms: denies other symptoms and weakness Treatments Prior to Arrival: none Related Data Home Medications ?Medication ?Instructions ?Recorded ?Confirmed ?Last Taken ?Type aspirin 81 mg tablet,delayed 81 mg PO DAILY 08/17/19 09/24/23 07/04/20 History release (Adult Low Dose Aspirin) atorvastatin 40 mg tablet 40 mg PO DAILY 08/17/19 09/24/23 07/04/20 History carvedilol 12.5 mg tablet (Coreg) 12.5 mg PO Q12H 08/17/19 09/24/23 07/04/20 History pregabalin 100 mg capsule (Lyrica) 100 mg PO TID 08/17/19 09/24/23 07/04/20 History tamsulosin 0.4 mg capsule (Flomax) 0.4 mg PO DAILY 08/17/19 09/24/23 07/04/20 History finasteride 5 mg tablet 5 mg PO DAILY 10/20/19 09/24/23 07/04/20 History furosemide 40 mg tablet 40 mg PO QAM 10/20/19 09/24/23 07/04/20 History allopurinol 100 mg tablet 100 mg PO DAILY 06/28/21 09/24/23 Unknown History trazodone 50 mg tablet 50 mg PO HS PRN Insomnia 09/30/21 09/24/23 Unknown History apixaban 2.5 mg tablet (Eliquis) 2.5 mg PO BID 04/09/23 09/24/23 Unknown History tramadol 50 mg tablet 50 mg PO TID 04/09/23 09/24/23 Unknown History Allergies Allergy/AdvReac Type Severity Reaction Status Date / Time oxycodone (From OxyContin) Allergy Mild Rash Verified 01/20/25 15:09 Sulfa (Sulfonamide Allergy Unknown Rash Verified 01/20/25 15:09 Antibiotics) Review of Systems 2 Review of Systems: All systems reviewed & are unremarkable except as noted in HPI and below Constitutional: Constitutional: Reports as per HPI, Reports no additional constitutional complaints and Reports weakness Eyes: Eyes: Reports as per HPI and Reports no additional eye complaints ENT: Reports system reviewed and no additional complaints, except as documented and Reports as per HPI Cardiovascular: Cardiovascular: Reports as per HPI and Reports no additional cardiovascular complaints Respiratory: Respiratory: Reports as per HPI and Reports no additional respiratory complaints Gastrointestinal: Gastrointestinal: Reports as per HPI and Reports no additional gastrointestinal complaints Genitourinary: Genitourinary: Reports no additional male genitourinary complaints and Reports as per HPI Musculoskeletal: Musculoskeletal: Reports no additional musculoskeletal complaints and Reports as per HPI Integumentary/Breasts: Skin/Breast: Reports system reviewed and no additional complaints, except as docu and Reports as per HPI Comments: Chronic venous stasis changes both legs Neurologic: Reports system reviewed and no additional complaints, except as documented and Reports as per HPI Psychiatric: Psychiatric: Reports no additional psychiatric complaints and Reports as per HPI Endocrine: Endocrine: Reports no additional endocrine complaints and Reports as per HPI Hematologic/Lymphatic: Hematologic/Lymphatic: Reports no additional hematologic/lymphatic complaints and Reports as per HPI Allergic/Immunologic: Allergic/Immunologic: Reports no additional allergic/immunologic complaints and Reports as per HPI [facility] Past Medical History Medical History Chronic GERD BPH (benign prostatic hyperplasia) Acute on chronic blood loss anemia High cholesterol Peripheral neuropathy Myocardial infarction x3 Cardiac defibrillator in place Pacemaker KIARRA (obstructive sleep apnea) Patient stated that he does not Use CPAP PVD (peripheral vascular disease) Hypertension Gout REESE (generalized anxiety disorder) Erectile dysfunction COPD (chronic obstructive pulmonary disease) CKD (chronic kidney disease), stage III CHF (congestive heart failure) CAD (coronary artery disease) Atrial fibrillation AAA (abdominal aortic aneurysm) Surgical History Surgical History History of AAA (abdominal aortic aneurysm) repair AICD (automatic cardioverter/defibrillator) present S/P CABG (coronary artery bypass graft) Four vessel CABG History of coronary artery stent placement 2 stents History of bladder surgery TURB procedure 2009 History of transcatheter aortic valve replacement (TAVR) Status post placement of cardiac pacemaker History of tonsillectomy and adenoidectomy History of aortic valve repair History of hernia repair incisional History of back surgery History of cholecystectomy History of heart valve replacement Family History Family History Father Family history of aortic aneurysm Acute myocardial infarction Mother Parkinsons disease Social History Social History Social History: The patient is and lives with his . The patient stated that he quit smoking many years ago. The patient has 4 children. His is his durable power estate planning attorney for health. He is a former smoker. He denies any alcohol marijuana or illicit drugs. 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 Code status full code Smoking packs per day: 2 Smoking cigarettes per day: 40.0 Years smoked: 45 Smoking pack-years: 90.00 Smoking status: Former smoker Second hand tobacco smoke exposure: No Alcohol intake: former Drinks per week: 3 Substance use: never Substance use type: does not use Lack of Transportation: No Lack of Food: Never True Current Housing: I Have Housing Concerned About Future Housing: No Difficulty Paying Gas/Electric Bills: No Difficulty Paying for Meds: No Currently Unemployed: No Education: Don't Know Difficulty w/ Childcare or Family Care: No Living arrangements: with family Additional living arrangements comments: . 4 Children. Occupation/Education: retired Additional occupation/education comments: Prior Occupation: [employer]. Gender identity (if verbalized by the patient): Male Spiritual care concerns: No Exam 2 Narrative: vitals are stable Const: General: no acute distress Orientation/consciousness: patient oriented x3 Limitations: no limitations HENMT: Head: normal to inspection Ears: external ears normal F marisela/Nose/Sinus: Normal external nose present Face and sinus: normal facial exam Mouth: Yes Normal oral and palatal mucosa present Throat: posterior oropharynx normal Eyes: Conjunctivae: conjunctivae normal Pupils: Equal, round and reactive pupils present EOM: EOMs intact bilaterally Direct Ophthalmoscopy: no photophobia Neck: Neck: normal visual inspection, no lymphadenopathy and no meningeal signs Chest: Chest palpation & inspection: normal inspection of the chest Resp: Effort & Inspection: normal respiratory effort Auscultation: clear to auscultation bilaterally Cardio: Rate: regular rate Rhythm: regular rhythm GI: GI Palp: Yes Soft to palpation Auscultation: normal bowel sounds O ther: tenderness/rigidity / rebound. : General: Yes no CVA tenderness Back/Spine/Pelvis: Back: no CVA tenderness Skin: General skin exam: normal color Other: Chronic venous stasis changes both legs. Neuro: General: patient oriented x3, moves all extremities, no meningeal signs, no focal motor deficits and CN's II-XI intact bilaterally Cranial nerves: Yes Nystagmus not present Speech: normal speech Extrem: General: normal to inspection and no clubbing, cyanosis or edema Psych: Mental Status: mental status grossly normal Affect: normal affect Attitude: cooperative Course Course Emergency Course: Anemia -- Patient is noted to have an H&H of 7.5/23.7 and a platelet count of 115. Patient has normal PT PTT. GI bleed-Patient is on aspirin and Eliquis. CKD with a BUN/creatinine of 27/1.47 Vital Signs Vital signs: Vital Signs Pulse Rate 70 01/20/25 15:05 Respiratory Rate 18 01/20/25 15:05 Blood Pressure 143/75 H 01/20/25 15:05 Pulse Oximetry 97 01/20/25 15:05 Oxygen Delivery Room Air 01/20/25 15:05 Temperature 36.6 C 01/20/25 15:06 Pulse Rate 70 01/20/25 16:45 Respiratory Rate 18 01/20/25 16:45 Blood Pressure 130/62 01/20/25 16:45 Pulse Oximetry 98 01/20/25 16:45 Oxygen Delivery Room Air 01/20/25 16:45 MDM - GI Bleed MDM Narrative Medical decision making narrative: anemia thrombocytopenia CKD GI bleed patient on aspirin and Eliquis Differential Diagnosis Differential diagnosis: Likely esophageal varices, Upper gastrointestinal hemorrhage and Lower gastrointestinal hemorrhage Medical Records Attestation: I reviewed the patient's medical records. Lab Data Attestation: I reviewed the patient's lab results. 01/20/25 15:54 01/20/25 15:54 Labs: Lab Results 01/20/25 Range/Units 15:54 WBC 5.2 (4.8-10.8) K/mm3 RBC 2.32 L (4.70-6.10) M/mm3 Hgb 7.5 L (12.4-15.3) g/dL Hct 23.7 L (37.0-46.0) % MCV 102.2 H (78.0-102.0) fL MCH 32.3 H (27.0-31.0) pg MCHC 31.6 L (32-36) g/dL RDW 15.1 H (11.6-14.4) % Plt Count 115 L (150-420) K/mm3 MPV 9.3 (8.7-11.0) fl Immature Gran % (Auto) 0.2 H (0.0-0.0) % Neut % (Auto) 63.1 (50.0-70.0) % Lymph % (Auto) 18.9 (18.0-42.0) % Whiteside % (Auto) 14.3 H (2.0-11.0) % Eos % (Auto) 2.9 (1.0-6.0) % Baso % (Auto) 0.6 (0.0-1.0) % Lymph # (Auto) 0.98 L (1.10-4.50) K/mm3 Whiteside # (Auto) 0.74 (0.10-0.90) K/mm3 Eos # (Auto) 0.15 (0.02-0.50) K/mm3 Baso # (Auto) 0.03 (0.00-0.10) K/mm3 Abs Immat Gran (auto) 0.01 H (0.00-0.00) K/mm3 Absolute Neuts (auto) 3.27 (1.70-7.20) K/mm3 Absolute Nucleated RBC 0.00 (0.00-0.00) K/mm3 Nucleated RBC % 0.0 (0-0.0) % PT 12.5 H (9.50-12.1) Seconds INR 1.1 APTT 28.1 (23.9-30.70) Sec Sodium 139 (137-145) mmol/L Potassium 4.5 (3.4-5.0) mmol/L Chloride 107 (98-107) mmol/L Carbon Dioxide 27 (22-30) mmol/L Anion Gap 5 (4-12) mmol/L BUN 27 H (9-20) mg/dL Creatinine 1.47 H (0.7-1.3) mg/dL Estim Creat Clear Calc 33 ml/min Estimated GFR 46 L (59 - ) Glucose 110 (65-110) mg/dL Calculated Osmolality 294 (285-295) mOsm/kg Calcium 8.9 (8.4-10.2) mg/dL Troponin I 0.027 (0.000-0.034) ng/mL Discharge Plan Discharge Clinical Impression: Anemia GI bleeding Qualifiers: GI bleed type/associated pathology: melena Qualified Code(s): K92.1 - Melena Patient Disposition: Still a Patient Condition: Stable Additional Instructions: transfer patient to [facility]. Patient has been accepted by Dr. Kidd Patient Language: Romansh Prescriptions: No Action ipratropium-albuterol 0.5 mg-3 mg(2.5 mg base)/3 mL solution for nebulization 3 ml inhalation Q6H PRN (Reason: shortness of breath) Qty: 180 0RF furosemide 20 mg tablet 20 mg PO DAILY Qty: 30 0RF allopurinol 100 mg tablet 100 mg PO DAILY trazodone 50 mg tablet 50 mg PO HS PRN (Reason: Insomnia) tramadol 50 mg tablet 50 mg PO TID Eliquis 2.5 mg tablet 2.5 mg PO BID furosemide [Lasix] 40 mg tablet 40 mg PO DAILY Qty: 3 0RF Rx Instructions: Additional dosage for 3 days tamsulosin [Flomax] 0.4 mg capsule 0.4 mg PO DAILY atorvastatin 40 mg tablet 40 mg PO DAILY pregabalin [Lyrica] 100 mg capsule 100 mg PO TID aspirin [Adult Low Dose Aspirin] 81 mg tablet,delayed release (DR/EC) 81 mg PO DAILY carvedilol [Coreg] 12.5 mg tablet 12.5 mg PO Q12H finasteride 5 mg tablet 5 mg PO DAILY furosemide 40 mg tablet 40 mg PO QAM pantoprazole [Protonix] 40 mg tablet,delayed release (DR/EC) 40 mg PO QAM 56 Days Qty: 56 0RF potassium chloride 20 mEq tablet extended release 40 meq PO DAILY Qty: 180 0RF Follow-up/Referrals: Ruddy Yang MD [Primary Care Provider] - Time of Disposition: 17:19
--- OUTSIDE RECORDS SUMMARY | 2025-01-20 15:28 | XMS_ITS | Clinical Summary ---
Author Organization [facility] Address [address] [place] [address] Phone Care Team Providers Care Barn And Property Manager Name Role Phone Unavailable Primary Care Provider [...] daily. Active fluticasone propionate (FLONASE) 50 mcg/spray Haven, Suspension nasal inhaler Administer 2 Sprays in each nostril daily. Active ipratropium bromide (ATROVENT) 42 mcg (0.06 %) Haven, Non-Aerosol Administer 2 Sprays in each nostril [...] on file Legal Sex Male 11:34 AM MANAGER HOSPICE Gender Identity Not on file Sexual Orientation Not on file Last Filed Vital Signs Vital Sign Reading Time Taken Comments Blood Pressure 140/77 10/22/2022 10:05 AM MANAGER HOSPICE Pulse 70 10/22/2022 10:01 AM MANAGER HOSPICE Temperature 35.7 C (96.3 F) 10/22/2022 10:01 AM MANAGER HOSPICE Respiratory Rate 10 10/22/2022 10:0 1 AM MANAGER HOSPICE Oxygen Saturation 98% 10/22/2022 10: 01 AM MANAGER HOSPICE Inhaled Oxygen Concentration - - Weight 81.5 kg (179 lb 11.2 oz) 023 10:01 AM MANAGER HOSPICE Height 172.7 cm (5' 8) 03/21/2022 11:1 [...] Sig/CT Colonography Q 5 years Discontinued Insurance [place] [id number]
--- OUTSIDE RECORDS SUMMARY | 2025-01-20 15:28 | XMS_ITS | Clinical Summary ---
Author Organization [facility] Address [address] [place] [address] Phone Care Team Providers Care B2B Sales Representative Name Role Phone Ruddy Yang MD Primary Care Provider [phone] Allergies Active Allergy Reactions Criticality Noted Date [...] Insurance MEDICARE [facility] Care Teams B2B Sales Representative Relationship Specialty Start Date End Date Ruddy Yang MD [address] [place] [address] PCP - General Internal Medicine 12/19/20
--- OUTSIDE RECORDS SUMMARY | 2025-01-20 15:28 | XMS_ITS | Clinical Summary ---
Author Organization [facility] Address [address] [place] [address] Care Team Providers Care Locksmith Helper Name Role Phone Ruddy Yang MD Primary Care Provider [phone] Source Comments [facility],non-owned Affiliates and Associated Physician Practices is amultiple site organization consisting of ambulatory clinics and hospital sitesin [place], [place], [place] and [place]. This disclosure is being madepursuant to the Care Everywhere program and may not contain all information available regarding this patient. Last updated 18.[facility] Medications * Be aware that medications may [...] on file Legal Sex Male 6:41 PM DRAPERY SEWER HAND Gender Identity Not on file Sexual [...] age to complete this topic Insurance MEDICARE [facility] MEDICARE MEDICARE SELF PAY NO INSURANCE Member Subscriber Plan / Payer (Ef fective for All Dates) Name:Elida Davidson Naty Member ID:Not on file Relation to Subscriber:Not on file Name:ELIDA DAVIDSON Subscriber ID:Not on file (Home) Address: [address] [place] [address] Payer ID:Not on file Group ID:Not on file Type:Self Pay Address: [facility] MANAGED MEDICARE ADV * Guarantor: ELIDA DAVIDSON Account Type Relation to Patient Date of Phone Billing Address Personal/Family Spouse [id number] [place] [address] SELF PAY NO INSURANCE Member Subscriber Plan / Payer (Ef fective for All Dates) Name:Elida Davidson Naty Member ID:Not on file Relation to Subscriber:Not on file Name:ELIDA DAVIDSON Subscriber ID:Not on file (Home) Address: [address] [place] [address] Payer ID:Not on file Group ID:Not on file Type:Self Pay Address: [place], [place] SELF PAY NO INSURANCE Member Subscriber Plan / Payer (Ef fective for All Dates) Name:Elida Davidson Member ID:Not on file Relation to Subscriber:Not on file Name:ELIDA DAVIDSON Subscriber ID:Not on file (Home) Address: [address] [place] [address] [place] [address] Payer ID:Not on file Group ID:Not on file Type:Self Pay Address: [facility] MANAGED MEDICARE ADV Care Teams Locksmith Helper Relationship Specialty Start Date End Date Ruddy Yang MD PCP - General 07/08/20
--- OUTSIDE RECORDS SUMMARY | 2025-01-20 15:28 | XMS_ITS | Clinical Summary ---
Author Organization [facility] Address [address], [facility] [address] [place] [address] Phone Care Team Providers Care Macadam Raker Name Role Phone Provider, Not On File [...] drink = 0.6 oz pur e alcohol) [facility] Utilities Answer Date Recorded In the past 12 months has [employer], [employer], or water Hello Chair threatened to shut off services in your home? Patient declined 09/24/2023 Social Connection and Isolation Panel [NHANES] A nswer Date Recorded In a typical week, how many times do you talk on the phone with family, friends, or neighbors? Patient declined 09/24/2023 How often do you get togethe r with friends or relatives? Patient declined 09/24/2023 How often do you attend rastafarian or uatsdin serv ices? Patient declined 09/24/2023 Do you belong to any clubs o r organizations such as rastafarian groups, unions, fraternal or athletic groups, or [...] Answer Date Recorded PHQ-2 Score 0 04/27/2019 [facility] - Occupational Stress Questionnaire Answer Date [...] on file Legal Sex Male 2:21 PM BUSINESS ANALYST SALES OPERATIONS Gender Identity Not on file Sexual Orientation Not on file Last Filed Vital Signs Vital Sign Reading Time Taken Comments Blood Pressure 150/84 09/26/2023 8:00 AM BUSINESS ANALYST SALES OPERATIONS Pulse 74 09/26/2023 8:00 AM BUSINESS ANALYST SALES OPERATIONS Temperature 35.9 C (96.7 F) 09/26/2023 8:33 AM BUSINESS ANALYST SALES OPERATIONS Respiratory Rate 20 09/26/2023 8:00 AM BUSINESS ANALYST SALES OPERATIONS Oxygen Saturation 97% 09/26/2023 8:0 0 AM BUSINESS ANALYST SALES OPERATIONS Inhaled Oxygen Concentration - - Weight 77.5 kg (170 lb 12.8 oz) 09/26/2023 5:55 AM BUSINESS ANALYST SALES OPERATIONS daily weight Height 172.7 cm (5' 8) 09/24/2023 3:06 PM BUSINESS ANALYST SALES OPERATIONS Body Mass Index 25.97 09/24/2023 3:06 PM BUSINESS ANALYST SALES OPERATIONS Plan of Treatment Health Maintenance Due Date [...] patient's age to complete this topic Insurance [facility] Advance Directives * Full Code (Latest Code Status on File) Date Activated Date Inactivated Comments 09/24/2023 4:08 PM 09/26/2023 3:01 PM CPR-Full Cristiane tment: FULL ARREST: Attempt Resuscitation/CPR wit intubation and mechanical ventilation. PRE-ARREST: Use entire range of life support measures to stabilize the patient. Care Teams Macadam Raker Relationship Specialty Start Date End Date Provider, Not On File [facility] PCP - General 09/26/23
--- OUTSIDE RECORDS SUMMARY | 2025-01-20 15:28 | XMS_ITS | Clinical Summary ---
Author Organization [facility] [address] [facility] [address] Address [address] [place] [address] Care Team Providers Care Dry Wall Nailer Name Role Phone Ruddy Yang MD Primary Care Provider [phone] Allergies Active Allergy Reactions Criticality Noted Date [...] tablet/capsul e (10 mEq total) by mouth route returner before breakfast [address] (CYMBALTA) [...] 09/02/2022 Assessment & Plan (07/03/2023 10:35 AM COILER OPERATOR): Hearing test Flonase 2 sprays into [...] 07/03/2023 Assessment & Plan (07/03/2023 10:35 AM COILER OPERATOR): Hearing test Flonase 2 sprays into [...] (07/11/2022): Added automatically from request for surgery [id number] Pain associated with wound 06/28/2022 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 Dx; CHF, SSS. Afib, AV Node Ablation. DOI 10/28/2023- Lynette. Chronic leads 05/25/2015. Bee remote monitoring. LV lead is a Medtronic lead and therefore the device is Not MRI conditional d/t Turning Art products. Dr Jovan Beltran-original device implanter in 2014. Osteoarthritis of lumbar spine 08/10/2015 Hypertension 01/29/2014 Overview (11/30/2016): High blood pressure Chronic coronary artery disease 01/29/2014 Overview (11/30/2016): Coronary artery disease Chronic obstructive pulmonary disease 01/29/2014 Overview (11/30/2016): COPD Hypercholesterolemia 01/29/2014 Overview (11/30/2016): High cholesterol Lumbago 02/04/2009 Encounters Date Type Department Care Team Description 01/07/2025 1:00 PM CDT Office Visit [facility] Cardiology [address] [place] [phone] Kary Rayo NP 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 heart failure (HCC) (Primary Dx); 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; Chronic coronary artery disease; Permanent atrial fibrillation (HCC); Primary hypertension; Hypercholesterolemia; S/P TAVR (transcatheter aortic valve replacement) 01/06/2025 Orders Only [facility] Cardiology [address] [place] [address] [place] [phone] Iker Ponce MD 01/04/2025 8:00 AM CDT Ancillary Procedure [facility] Cardiology [address] [place] [address] [place] [phone] ICD (implantable cardioverter-defibrilla tor) in place; Permanent atrial fibrillation (HCC); 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; S/P AV josué ablation; Congestive heart failure, unspecified HF chronicity, unspecified heart failure type (HCC) 01/04/2025 Telephone [facility] Cardiology [address] [place] [address] [address] [place] [phone] Jarett Yousif MD 12/30/2024 10:00 AM CDT Ancillary Procedure [facility] Cardiology [address] [place] [address] [place] [phone] Longstanding persistent atrial fibrillation (HCC); SSS (sick sinus syndrome) (HCC); Congestive heart failure, unspecified HF chronicity, unspecified heart failure type (HCC); 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; History of atrioventricular josué ablation 12/30/2024 Orders Only [facility] Cardiology [address] [place] [address] [place] [phone] Jarett Yousif MD ICD (implantable cardioverter-defibrilla tor) in place (Primary Dx); Permanent atrial fibrillation (HCC); 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; S/P AV josué ablation; Congestive heart failure, unspecified HF chronicity, unspecified heart failure type (HCC) 12/29/2024 Telephone [facility] Cardiology [address] [place] [address] [place] [phone] Jarett Yousif MD 12/04/2024 11:30 AM CDT Office Visit [facility] Cardiology [address] [place] [address] [place] [phone] Letitia Kumar NP Coronary artery disease of [place] heart with stable angina pectoris, unspecified vessel or lesion type (Primary Dx); 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; Permanent atrial fibrillation (HCC); Chronic anticoagulation 11/24/2024 8:45 AM CDT Ancillary Procedure [facility] Cardiology [address] [place] [address] [place] [phone] 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 (Primary Dx); Cardiomyopathy, unspecified type (HCC); SSS (sick sinus syndrome) (HCC); Permanent atrial fibrillation (HCC); Congestive heart failure, unspecified HF chronicity, unspecified heart failure type (HCC) 11/09/2024 8:45 AM CDT Office Visit [facility] Cardiology [address] [place] [phone] Jarett Yousif MD Biventricular ICD [...] on file Legal Sex Male 1:59 AM COILER OPERATOR Gender Identity Not on file Sexual Orientation Not on file Obstetrics History Last Filed Vital Signs Vital Sign Reading Time Taken Comments Blood Pressure 122/70 01/07/2025 12:35 PM CDT Pulse 71 01/07/2025 12:35 PM CDT Temperature 36.1 C (97 F) 10/28/2023 1:26 PM COILER OPERATOR Respiratory Rate 14 01/07/2025 12:35 PM [...] 06/28/2030 06/28/2020 Medical Devices Implanted Type Area Tug Master Device Identifier Shelf Expiration Date Model / Serial / Lot Icd ICD Heart Pacemaker Pacemaker Heart Description:PACEMAKER/ICD Stent Implanted:Qty: 2 Stent Heart Yo Vascular Defib Cardiac [id number] [place] Hf Df4 Is-4 Is-1 Cnctr [id number] - [id number] - [id number] Implanted:Qty: 1 on 10/28/2023 by Eric Ojeda MD at [facility] Vascular 08/25/2025 [id number] / [id number] / Procedures Procedure Name Priority Date/Time Associated [...] Other Narrative 01/08/2025 10:41 AM CDT Yo [place] BIV ICD. Dx; CHF, SSS. Afib, AV Node Ablation. DOI 10/28/2023-Lynette. Chronic leads 05/25/2015. Bee remote monitoring. Unscheduled remote due to patient [...] Lasix, potassium, amongst others. See scanned report. Bee remote follow-up 04/06/2025. ROV with Dr. Yousif 05/20/2025. Ning Johansen RN aJrett Yousif MD CV CARDIAC SERVICES PROC EDURES Final Result * DEVICE CHECK - IN OFFICE (12/30/2024 9:48 AM CDT) Anatomical Region Laterality Modality Other Narrative 01/08/2025 10:39 AM CDT Yo [place] BIV ICD. Dx; CHF, SSS. Afib, AV Node Ablation. DOI 10/28/2023-Santiago. Chronic leads 05/25/2015. Sav remote monitoring. LV lead is a Medtronic lead and therefor the device is Not MRI conditional d/t Turning Art products. Supervising MD: Dr Whittaker. Left pectoral [...] based on patient's response to today's adjustments. Bee remote f/u 04/06/2025. Ning Johansen RN Jarett Yousif MD CV CARDIAC SERVICES PROC EDURES Final Result * DEVICE CHECK - REMOTE (11/24/2024 10:05 AM CDT) Anatomical Region Laterality Modality Other Narrative 12/03/2024 8:25 AM CDT [email or web address] BIV ICD. Dx; CHF, SSS. Afib, AV Node Ablation. DOI 10/28/2023-Lynette. Chronic leads 05/25/2015. Sav remote monitoring. LV lead is a Movatutronic lead and therefore the device is Not MRI conditional d/t Turning Art products. Dr Jovan Beltran-original device implanter in [...] mg, Follow up: Office Pacemaker/ICD scheduled 12/30/24 Bee remote 4 months Capo Wade RN Jarett Yousif MD CV CARDIAC SERVICES PROC EDURES Final Result from Last 3 Months Insurance [facility] MEDICARE ADVANTAGE MEDICARE [facility] MEDICARE ADVANTAGE [facility] MEDICARE ADVANTAGE Care Teams Dry Wall Nailer Relationship Specialty Start Date End Date Ruddy Yang MD [address] [place], [place] [id number] PCP - General Internal Medicine 01/02/21
--- OUTSIDE RECORDS SUMMARY | 2025-01-20 15:28 | XMS_ITS | Referral Summary ---
Author Organization [place] [address] [address] [place] [phone] Care Team Providers Care Steel Shot Header Operator Name Role Phone Ruddy Yang MD Primary Care Provider [phone] Encounters Date Type Department Care Team Description 01/07/2025 1:00 PM CDT Office Visit [facility] Cardiology [address] [place] [address] [place] [phone] Kary Rayo NP 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 heart failure (HCC) (Primary Dx); 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; Chronic coronary artery disease; Permanent atrial fibrillation (HCC); Primary hypertension; Hypercholesterolemia; S/P TAVR (transcatheter aortic valve replacement) 01/06/2025 Orders Only [address] [phone] Iker Ponce MD 01/04/2025 8:00 AM CDT Ancillary Procedure [address] [place] [phone] ICD (implantable cardioverter-defibrilla tor) in place; Permanent atrial fibrillation (HCC); 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; S/P AV josué ablation; Congestive heart failure, unspecified HF chronicity, unspecified heart failure type (HCC) 01/04/2025 Telephone [place] [address] [place] [phone] Jarett Yousif MD 12/30/2024 Orders Only [facility] Cardiology [address] [place] [address] [place], [place] [address] [place] [phone] Jarett Yousif MD ICD (implantable cardioverter-defibrilla tor) in place (Primary Dx); Permanent atrial fibrillation (HCC); 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; S/P AV josué ablation; Congestive heart failure, unspecified HF chronicity, unspecified heart failure type (HCC) 12/30/2024 10:00 AM CDT Ancillary Procedure [facility] Cardiology [address] [place] [address] [place] [phone] Longstanding persistent atrial fibrillation (HCC); SSS (sick sinus syndrome) (HCC); Congestive heart failure, unspecified HF chronicity, unspecified heart failure type (HCC); 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; History of atrioventricular josué ablation 12/29/2024 Telephone [facility] Cardiology [address] [place] [address] [place] [phone] Jarett Yousif MD 12/04/2024 11:30 AM CDT Office Visit [facility] Cardiology [address] [place] [address] [place] [phone] Letitia Kumar NP Coronary artery disease of [place] heart with stable angina pectoris, unspecified vessel or lesion type (Primary Dx); 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; Permanent atrial fibrillation (HCC); Chronic anticoagulation 11/24/2024 8:45 AM CDT Ancillary Procedure [facility] Cardiology [address] [place] [address] [place] [address] [place] [phone] 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 (Primary Dx); Cardiomyopathy, unspecified type (HCC); SSS (sick sinus syndrome) (HCC); Permanent atrial fibrillation (HCC); Congestive heart failure, unspecified HF chronicity, unspecified heart failure type (HCC) 11/09/2024 8:45 AM CDT Office Visit [facility] Cardiology [address] [place] [phone] Jarett Yousif MD Biventricular ICD [...] tablet/capsul e (10 mEq total) by mouth firestop/containment worker before breakfast [address] (CYMBALTA) [...] 09/02/2022 Assessment & Plan (07/03/2023 10:35 AM TECHNOLOGY SALES CONSULTANT): Hearing test Flonase 2 sprays into each [...] 07/03/2023 Assessment & Plan (07/03/2023 10:35 AM TECHNOLOGY SALES CONSULTANT): Hearing test Flonase 2 sprays into each [...] (07/11/2022): Added automatically from request for surgery [id number] Pain associated with wound 06/28/2022 S/P TAVR (transcatheter aortic valve replacement ) 05/16/2021 Hx of CABG 02/07/2021 Permanent atrial fibrillation 02/07/2021 ICD (implantable cardioverter-defibrillator) in place 02/07/2021 History of coronary artery stent placement 02/07 Biventricular ICD (implantab le cardioverter-defibrillator) in place 01/04/2021 Overview (10/28/2023): Contactual BIV ICD. Dx; CHF, SSS. Afib, AV Node Ablation. DOI 10/28/2023- Lynette. Chronic leads 05/25/2015. GeckoGo remote monitoring. LV lead is a Medtronic lead and therefore the device is Not MRI conditional d/t Prowl products. Dr Jovan Beltran-original device implanter in [...] on file Legal Sex Male 1:59 AM TECHNOLOGY SALES CONSULTANT Gender Identity Not on file Sexual Orientation Not on file Last Filed Vital Signs Vital Sign Reading Time Taken Comments Blood Pressure 122/70 01/07/2025 12:35 PM CDT Pulse 71 01/07/2025 12:35 PM CDT Temperature 36.1 C (97 F) 10/28/2023 1:26 PM TECHNOLOGY SALES CONSULTANT Respiratory Rate 14 01/07/2025 12:35 PM CDT Oxygen Saturation 95% 01/07/2025 12:35 PM CDT Inhaled Oxygen Concentration - - Weight 76.2 kg (168 lb) 01/07/2025 12:35 PM CDT Height 172.7 cm (5' 8) 01/07/2025 12:35 PM CDT Body Mass Index 25.54 01/07/2025 12:35 PM CDT Plan of Treatment Not on file Medical Devices Implanted Type Area Nursing Assoc Device Identifier Shelf Expiration Date Model / Serial / Lot Icd ICD Heart Pacemaker Pacemaker Heart Description:PACEMAKER/ICD Stent Implanted:Qty: 2 Stent Heart Yo Vascular Defib Cardiac [id number] [place] Hf Df4 Is-4 Is-1 Cnctr [id number] - [id number] - [id number] Implanted:Qty: 1 on 10/28/2023 by Eric Ojeda MD at [facility] Yo Vascular 08/25/2025 [id number] / [id number] / Procedures Procedure Name Priority Date/Time Associated [...] Other Narrative 01/08/2025 10:41 AM CDT Yo [place] BIV ICD. Dx; CHF, SSS. Afib, AV Node Ablation. DOI 10/28/2023-Lynette. Chronic leads 05/25/2015. Thorp remote monitoring. Unscheduled remote due to patient [...] Other Narrative 01/08/2025 10:39 AM CDT Yo [place] BIV ICD. Dx; CHF, SSS. Afib, AV Node Ablation. DOI 10/28/2023-Santiagoanda. Chronic leads 05/25/2015. Sav remote monitoring. LV lead is a Medtronic lead and therefor the device is Not MRI conditional d/t Prowl products. Supervising MD: Dr Whittaker. Left pectoral [...] Modality Other Narrative 12/03/2024 8:25 AM CDT Contactual BIV ICD. Dx; CHF, SSS. Afib, AV Node Ablation. DOI 10/28/2023-Lynette. Chronic leads 05/25/2015. Thorp remote monitoring. LV lead is a [employer] lead and therefore the device is Not MRI conditional d/t Prowl products. Dr Jovan Beltran-original device implanter in [...] mg, Follow up: Office Pacemaker/ICD scheduled 12/30/24 Thorp remote 4 months Capo Wade RN Jarett Yousif MD CV CARDIAC SERVICES PROC EDURES Final Result from Last 3 Months Insurance [facility] MEDICARE ADVANTAGE MEDICARE [facility] MEDICARE ADVANTAGE UHC MEDICARE ADVANTAGE Care Teams Steel Shot Header Operator Relationship Specialty Start Date End Date Ruddy Yang MD [address] [place] [address] PCP - General Internal Medicine 01/02/21
[2025-01-20 16:06] LABS: Basophils Absolute Auto 0.03 K/mm3 (0.00-0.10); Basophils Percent Auto 0.6 % (0.0-1.0); Eosinophils Absolute Auto 0.15 K/mm3 (0.02-0.50); Eosinophils Percent Auto 2.9 % (1.0-6.0); Hematocrit 23.7 % (37.0-46.0); Hemoglobin 7.5 g/dL (12.4-15.3); Immature Granulocyte Absolute 0.01 K/mm3 (0.00-0.00); Immature Granulocyte Percent A 0.2 % (0.0-0.0); Lymphocytes Absolute Auto 0.98 K/mm3 (1.10-4.50); Lymphocytes Percent Auto 18.9 % (18.0-42.0); Mean Corpuscular HGB Conc 31.6 g/dL (32-36); Mean Corpuscular Hemoglobin 32.3 pg (27.0-31.0); Mean Corpuscular Volume 102.2 fL (78.0-102.0); Mean Platelet Volume 9.3 fl (8.7-11.0); Monocytes Absolute Auto 0.74 K/mm3 (0.10-0.90); Monocytes Percent Auto 14.3 % (2.0-11.0); Neutrophils Absolute Auto 3.27 K/mm3 (1.70-7.20); Neutrophils Percent Auto 63.1 % (50.0-70.0); Platelet Count Result 115 K/mm3 (150-420); Red Blood Count 2.32 M/mm3 (4.70-6.10); Red Cell Distribution Width 15.1 % (11.6-14.4); White Blood Count 5.2 K/mm3 (4.8-10.8)
[2025-01-20 16:17] LABS: Anion Gap 5 mmol/L (4-12); Blood Urea Nitrogen 27 mg/dL (9-20); Calcium 8.9 mg/dL (8.4-10.2); Carbon Dioxide 27 mmol/L (22-30); Chloride 107 mmol/L (98-107); Estimated CRCL calculation 33 ml/min; Estimated Glomerular Filt Rate 46; Glucose 110 mg/dL (65-110); Osmolality Calculated 294 mOsm/kg (285-295); Potassium 4.5 mmol/L (3.4-5.0); Sodium 139 mmol/L (137-145)
[2025-01-20] MEDS: PANTOPRAZOLE SODIUM IV 40 MG VIAL IV PUSH (16:18)
[2025-01-20 16:20] LABS: INR 1.1; Partial Thromboplastin Time 28.1 Sec (23.9-30.70); Prothrombin Time 12.5 Seconds (9.50-12.1)
[2025-01-20 16:30] LABS: Troponin I 0.027 ng/mL (0.000-0.034)
== END 2025-01-20 18:00 | disposition short-term general hospital (02) ==
PROVIDERS: Emergency Provider Internal Medicine Critical Care Medicine; PCP Internal Medicine
DX: D64.9 Anemia, unspecified (principal); K92.1 Melena; I25.10 Atherosclerotic heart disease of native coronary artery without angina pectoris; I25.810 Atherosclerosis of coronary artery bypass graft(s) without angina pectoris; I13.0 Hypertensive heart and chronic kidney disease with heart failure and stage 1 through stage 4 chronic kidney disease, or unspecified chronic kidney disease; I50.9 Heart failure, unspecified; N18.30 Chronic kidney disease, stage 3 unspecified; J44.9 Chronic obstructive pulmonary disease, unspecified; I25.2 Old myocardial infarction; I48.91 Unspecified atrial fibrillation; Z95.1 Presence of aortocoronary bypass graft; Z87.891 Personal history of nicotine dependence
CPT/HCPCS: 36415; 80048; 84484; 85025; 85610; 85730; 96374; 99284; J2470

== ENCOUNTER 2025-01-28 11:21 | Outpatient (CLI) | payer MEDICARE, SELFPAY ==
[2025-01-28 11:49] LABS: Basophils Absolute Auto 0.03 K/mm3 (0.00-0.10); Basophils Percent Auto 0.6 % (0.0-1.0); Eosinophils Absolute Auto 0.11 K/mm3 (0.02-0.50); Eosinophils Percent Auto 2.2 % (1.0-6.0); Hematocrit 25.2 % (37.0-46.0); Hemoglobin 7.9 g/dL (12.4-15.3); Immature Granulocyte Absolute 0.02 K/mm3 (0.00-0.00); Immature Granulocyte Percent A 0.4 % (0.0-0.0); Immature Reticulocyte Fraction 27.1 % (2.0-16.52); Lymphocytes Absolute Auto 0.86 K/mm3 (1.10-4.50); Lymphocytes Percent Auto 17.4 % (18.0-42.0); Mean Corpuscular HGB Conc 31.3 g/dL (32-36); Mean Corpuscular Hemoglobin 30.5 pg (27.0-31.0); Mean Corpuscular Volume 97.3 fL (78.0-102.0); Mean Platelet Volume 9.7 fl (8.7-11.0); Monocytes Absolute Auto 0.48 K/mm3 (0.10-0.90); Monocytes Percent Auto 9.7 % (2.0-11.0); Neutrophils Absolute Auto 3.44 K/mm3 (1.70-7.20); Neutrophils Percent Auto 69.7 % (50.0-70.0); Platelet Count Result 117 K/mm3 (150-420); Red Blood Count 2.59 M/mm3 (4.70-6.10); Red Cell Distribution Width 17.7 % (11.6-14.4); Reticulocyte Percent 3.24 % (0.50-1.50); Reticulocytes Absolute 0.08 M/mm3 (0.02-0.10); White Blood Count 4.9 K/mm3 (4.8-10.8)
[2025-01-28 12:00] LABS: Alanine Aminotransferase 37 U/L (6-50); Albumin Level 3.6 g/dL (3.5-5.1); Alkaline Phosphatase 45 U/L (38-126); Anion Gap 8 mmol/L (4-12); Aspartate Amino Transferase 39 U/L (17-59); Bilirubin,Total 1.1 mg/dL (0.2-1.3); Blood Urea Nitrogen 22 mg/dL (9-20); Calcium 8.2 mg/dL (8.4-10.2); Carbon Dioxide 24 mmol/L (22-30); Chloride 106 mmol/L (98-107); Estimated Glomerular Filt Rate 48; Glucose 127 mg/dL (65-110); Iron 29 ug/dL (49-181); Osmolality Calculated 291 mOsm/kg (285-295); Sodium 138 mmol/L (137-145); Total Protein 6.3 g/dL (6.3-8.2)
[2025-01-28 12:10] LABS: NT Pro B Type Natriuretic Pept 5720 pg/mL (19.9-100)
--- OUTSIDE RECORDS SUMMARY | 2025-01-28 12:27 | XMS_ITS | Clinical Summary ---
Author Organization [facility] Address [address], [facility] [address] [place] [address] Phone Care Team Providers Care Labor Contractor Name Role Phone Provider, Not On File [...] drink = 0.6 oz pur e alcohol) [facility] Utilities Answer Date Recorded In the past 12 months has [employer], hipix, or water [employer] threatened to shut off services in your home? Patient declined 09/24/2023 Social Connection and Isolation Panel [NHANES] A nswer Date Recorded In a typical week, how many times do you talk on the phone with family, friends, or neighbors? Patient declined 09/24/2023 How often do you get togethe r with friends or relatives? Patient declined 09/24/2023 How often do you attend worship or religion serv ices? Patient declined 09/24/2023 Do you belong to any clubs o r organizations such as worship groups, unions, fraternal or athletic groups, or [...] Answer Date Recorded PHQ-2 Score 0 04/27/2019 [facility] - Occupational Stress Questionnaire Answer Date [...] place to sleep or slept in a assisted (including now)? Patient declined 09/24/2023 Sex and Gender Information Value Date Recorded Sex Assigned at Not on file Legal Sex Male 2:21 PM FOREIGN BANKNOTE TELLER TRADER Gender Identity Not on file Sexual Orientation Not on file Last Filed Vital Signs Vital Sign Reading Time Taken Comments Blood Pressure 150/84 09/26/2023 8:00 AM FOREIGN BANKNOTE TELLER TRADER Pulse 74 09/26/2023 8:00 AM FOREIGN BANKNOTE TELLER TRADER Temperature 35.9 C (96.7 F) 09/26/2023 8:33 AM FOREIGN BANKNOTE TELLER TRADER Respiratory Rate 20 09/26/2023 8:00 AM FOREIGN BANKNOTE TELLER TRADER Oxygen Saturation 97% 09/26/2023 8:0 0 AM FOREIGN BANKNOTE TELLER TRADER Inhaled Oxygen Concentration - - Weight 77.5 kg (170 lb 12.8 oz) 09/26/2023 5:55 AM FOREIGN BANKNOTE TELLER TRADER daily weight Height 172.7 cm (5' 8) 09/24/2023 3:06 PM FOREIGN BANKNOTE TELLER TRADER Body Mass Index 25.97 09/24/2023 3:06 PM FOREIGN BANKNOTE TELLER TRADER Plan of Treatment Health Maintenance Due Date Last Done Comments Hepatitis C Virus (HCV) Screening 1940 Pneumococcal Immunization (50+ years) (1 of 2 - PCV) 1960 Zoster Immunization (1 of 2) 1991 Respiratory Syncytial Virus (RSV) Immunization (Adult) (1 - 1-dose 75+ series) 2016 SARS-COV-2 Immunization (3 - season) 2024 11/09/2020, 10/19/2020 Influenza Immunization (Season Ended) 2025 04/26/2023, 05/21/2022, 04/19/2021, Additional history exists DTaP/Tdap/Td Immunization Discontinued 06/28/2020 TdaP Immunization Completed 06/28/2020 Hepatitis B Immunization Aged Out No longer eligible based on patient's age to complete this topic Human Papillomavirus (HPV) Immunization Aged Out No longer eligible based on patient's age to complete this topic Meningococcal Immunization (ACWY) Aged Out No longer eligible based on patient's age to complete this topic Rotavirus Immunization Aged Out No lo nger eligible based on patient's age to complete this topic Insurance [facility] MEDIC[facility] C [facility] Advance Directives * Full Code (Latest Code Status on File) Date Activated Date Inactivated Comments 09/24/2023 4:08 PM 09/26/2023 3:01 PM CPR-Full Cristiane tment: FULL ARREST: Attempt Resuscitation/CPR wit intubation and mechanical ventilation. PRE-ARREST: Use entire range of life support measures to stabilize the patient. Care Teams Labor Contractor Relationship Specialty Start Date End Date Provider, Not On File [place] PCP - General 09/26/23
--- OUTSIDE RECORDS SUMMARY | 2025-01-28 12:28 | XMS_ITS | Clinical Summary ---
Author Organization [facility] Address [address] [facility] [place] [address] Phone Care Team Providers Care Park Police Name Role Phone Unavailable Primary Care Provider [...] daily. Active fluticasone propionate (FLONASE) 50 mcg/spray [place], Suspension nasal inhaler Administer 2 Sprays in each nostril daily. Active ipratropium bromide (ATROVENT) 42 mcg (0.06 %) [place], Non-Aerosol Administer 2 Sprays in each nostril [...] on file Legal Sex Male 11:34 AM FITTER UP Gender Identity Not on file Sexual Orientation Not on file Last Filed Vital Signs Vital Sign Reading Time Taken Comments Blood Pressure 140/77 10/22/2022 10:05 AM FITTER UP Pulse 70 10/22/2022 10:01 AM FITTER UP Temperature 35.7 C (96.3 F) 10/22/2022 10:01 AM FITTER UP Respiratory Rate 10 10/22/2022 10:0 1 AM FITTER UP Oxygen Saturation 98% 10/22/2022 10: 01 AM FITTER UP Inhaled Oxygen Concentration - - Weight 81.5 kg (179 lb 11.2 oz) 023 10:01 AM FITTER UP Height 172.7 cm (5' 8) 03/21/2022 11:1 [...] Sig/CT Colonography Q 5 years Discontinued Insurance [place] [id number]
--- OUTSIDE RECORDS SUMMARY | 2025-01-28 12:28 | XMS_ITS | Clinical Summary ---
Author Organization [facility] Address [address] [place] [address] Care Team Providers Care Wood And Wood Products Factory Worker Name Role Phone Ruddy Yang MD Primary Care Provider [phone] Source Comments [email or web address] [facility],non-owned Affiliates and Associated Physician Practices is amultiple site organization consisting of ambulatory clinics and hospital sitesin [place], [place], [place] and [place]. This disclosure is being madepursuant to the Care Everywhere program and may not contain all information available regarding this patient. Last updated 05/16/[email or web address] Medications * Be aware that medications may [...] on file Legal Sex Male 6:41 PM TRAVELING CLERK Gender Identity Not on file Sexual Orientation [...] age to complete this topic Insurance MEDICARE [facility] MEDICARE MEDICARE SELF PAY NO INSURANCE Member Subscriber Plan / Payer (Ef fective for All Dates) Name:Elida Davidson Naty Member ID:Not on file Relation to Subscriber:Not on file Name:ELIDA DAVIDSON Subscriber ID:Not on file (Home) Address: [id number] [place] [id number] Payer ID:Not on file Group ID:Not on file Type:Self Pay Address: [facility] MANAGED MEDICARE ADV * Guarantor: ELIDA DAVIDSON Account Type Relation to Patient Date of Phone Billing Address Personal/Family Spouse [address] [place] [id number] SELF PAY NO INSURANCE Member Subscriber Plan / Payer (Ef fective for All Dates) Name:Elida Davidson Naty Member ID:Not on file Relation to Subscriber:Not on file Name:ELIDA DAVIDSON Subscriber ID:Not on file (Home) Address: [address] [place] [id number] Payer ID:Not on file Group ID:Not on file Type:Self Pay Address: [place], [place] SELF PAY NO INSURANCE Member Subscriber Plan / Payer (Ef fective for All Dates) Name:Elida Davidson Member ID:Not on file Relation to Subscriber:Not on file Name:ELIDA DAVIDSON Subscriber ID:Not on file (Home) Address: [address] [place] [address] [place] [id number] Payer ID:Not on file Group ID:Not on file Type:Self Pay Address: [facility] [place] [address] Care Teams Wood And Wood Products Factory Worker Relationship Specialty Start Date End Date Ruddy Yang MD PCP - General 07/08/20
--- OUTSIDE RECORDS SUMMARY | 2025-01-28 12:28 | XMS_ITS | Clinical Summary ---
Author Organization [facility] [address] [facility] [address] Address [address] [place] [address] Care Team Providers Care Director Camp Name Role Phone Ruddy Yang MD Primary Care Provider [phone] Allergies Active Allergy Reactions Criticality Noted Date [...] by oral route every day 0 0 01/30/20 14 Active allopurinoL (ZYLOPRIM) 100 mg tabletIndicatio ns:prevention of acute gout attack Take 1 tablet (100 mg total) by mouth 2 (two) times a day Active atorvastatin (LIPITOR) 40 mg tabletIndicatio ns:hyperlipidem ia Take 1 tablet (40 mg total) by mouth nightly Active tamsulosin (FLOMAX) 0.4 mg extended release capsuleIndicati ons:benign prostatic hyperplasia with lower urinary tract sx Take 1 capsule (0.4 mg total) by mouth every morning Active carvediloL (COREG) 12.5 mg tabletIndicatio ns:hypertension Take 1 tablet (12.5 mg total) by mouth 2 (two) times a day with meals Active traMADoL (ULTRAM) 50 mg tabletIndicatio ns:Neuropathic Pain Take 1 tablet (50 mg total) by mouth 3 (three) times a day 06/06/20 22 Active aspirin 81 mg enteric coated tablet Take 1 tablet (81 mg total) by mouth daily Active DULoxetine DR (CYMBALTA) 60 mg capsule Take 1 capsule (60 mg total) by mouth daily 04/20/20 24 Active nortriptyline (PAMELOR) 10 mg capsule Take 1 capsule (10 mg total) by mouth 2 (two) times a day 04/30/20 24 Active furosemide (LASIX) 20 mg tabletIndicatio ns: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 heart failure (HCC) Take 1 tablet (20 mg total) by mouth daily 30 tablet 01/08/[address] (PROTONIX) 40 mg EC tabletIndicatio ns:Treatment of Non-Bleeding Gastric Disorder Take 1 tablet (40 mg total) by mouth every morning 90 tablet 01/24/20 25 025 Active famotidine (PEPCID) 20 mg tablet Take 1 tablet (20 mg total) by mouth daily 30 tablet 04/24/20 25 026 Active furosemide (LASIX) 40 mg tabletIndicatio ns:Edema,hypert ension Take 1 tablet (40 mg total) by mouth daily 025 Discontinued( erapy completed) pregabalin (LYRICA) 100 mg capsuleIndicati ons:PAIN Take 1 capsule (100 mg total) by mouth 3 (three) times a day 025 Discontinued( erapy completed) traZODone (DESYREL) 50 mg tabletIndicatio ns:insomnia associated with depression Take 1 tablet (50 mg total) by mouth nightly as needed 025 Discontinued(Ot her) cholecalciferol (VITAMIN D-3) 25 mcg (1,000 unit) tabletIndicatio ns:Vitamin D Deficiency Take 1 tablet (1,000 Units total) by mouth every morning 025 Discontinued(Ot her) finasteride (PROSCAR) 5 mg tablet Take 1 tablet (5 mg total) by mouth daily 025 Discontinued(Ot her) pantoprazole DR (PROTONIX) 40 mg EC tabletIndicatio ns:Treatment of Non-Bleeding Gastric Disorder Take 1 tablet (40 mg total) by mouth every morning 025 Discontinued Eliquis 2.5 mg tabletIndicatio ns:atrial fibrillation Take 1 tablet (2.5 mg total) by mouth 2 (two) times a day 06/25/20 22 025 Discontinued(Ot her) potassium chloride ER 10 mEq CR capsule Take 2 tablet/capsu le (20 mEq total) 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 09/26/19 24 025 Discontinued(St op Taking at Discharge) Active Problems Problem Noted Date Diagnosed Date Occult GI bleeding 01/21/2025 GIB (gastrointestinal bleeding) 01/20/2025 Severe anemia 01/20/2025 Elective replacement of impl antable cardioverter-defibrillator (ICD) battery required 10/01/2023 Sensorineural hearing loss (SNHL) of both ears 1 09/02/2022 Assessment & Plan (07/03/2023 10:35 AM BUSINESS AND FINANCIAL COUNSEL): Hearing test Flonase 2 sprays into each [...] 07/03/2023 Assessment & Plan (07/03/2023 10:35 AM BUSINESS AND FINANCIAL COUNSEL): Hearing test Flonase 2 sprays into each [...] (07/11/2022): Added automatically from request for surgery [id number] Pain associated with wound 06/28/2022 S/P TAVR (transcatheter aortic valve replacement ) 05/16/2021 Hx of CABG 02/07/2021 Permanent atrial fibrillation 02/07/2021 ICD (implantable cardioverter-defibrillator) in place 02/07/2021 History of coronary artery stent placement 02/07 Biventricular ICD (implantab le cardioverter-defibrillator) in place 01/04/2021 Overview (10/28/2023): [place] BIV ICD. Dx; CHF, SSS. Afib, AV Node Ablation. DOI 10/28/2023- Lynette. Chronic leads 05/25/2015. [employer] remote monitoring. LV lead is a iTMantronic lead and therefore the device is Not MRI conditional d/t [employer] products. Dr Elida Beltran-original device implanter in 2014. Osteoarthritis of lumbar spine 08/10/2015 Hypertension 01/29/2014 Overview (11/30/2016): High blood pressure Chronic coronary artery disease 01/29/2014 Overview (11/30/2016): Coronary artery disease Chronic obstructive pulmonary disease 01/29/2014 Overview (11/30/2016): COPD Hypercholesterolemia 01/29/2014 Overview (11/30/2016): High cholesterol Lumbago 02/04/2009 Encounters Date Type Department Care Team Description 01/22/2025 12:30 PM CDT Anesthesia Event [address] [address] Romulo Aege MD 01/22/2025 12:00 PM CDT - 01/22/2025 12:50 PM CDT Surgery [address] [address] Karey Dong MD COLON CONTROL BLEEDING 01/20/2025 7:02 PM CDT - 01/23/2025 3:47 PM CDT Hospital Encounter [facility] [address] [place] [address] Rosemary Kidd DO Petters, Ekanga Sunday, MD Nikolic, Jelena, MD Nations, Matthew Austin, DO Kim, Eileen H., MD Severe anemia [D64.9] (Primary Dx); Gastrointestinal hemorrhage, unspecified gastrointestinal hemorrhage type; Occult GI bleeding; Juxtarenal abdominal aortic aneurysm (AAA) without rupture; Severe anemia Discharge Disposition: Discharge to home or self care 01/07/2025 1:00 PM CDT Office Visit [facility] [address] [place] [address] [place] [address] [phone] Kary Rayo NP 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 heart failure (HCC) (Primary Dx); 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; Chronic coronary artery disease; Permanent atrial fibrillation (HCC); Primary hypertension; Hypercholesterolemia; S/P TAVR (transcatheter aortic valve replacement) 01/06/2025 Orders Only [facility] [address] [place] [phone] Iker Ponce MD 01/04/2025 8:00 AM CDT Ancillary Procedure [address] [place] [address] [phone] ICD (implantable cardioverter-defibrilla tor) in place; Permanent atrial fibrillation (HCC); 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; S/P AV josué ablation; Congestive heart failure, unspecified HF chronicity, unspecified heart failure type (HCC) 01/04/2025 Telephone [facility] [address] [place] [phone] Jarett Yousif MD 12/30/2024 10:00 AM CDT Ancillary Procedure [address] [phone] Longstanding persistent atrial fibrillation (HCC); SSS (sick sinus syndrome) (HCC); Congestive heart failure, unspecified HF chronicity, unspecified heart failure type (HCC); 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; History of atrioventricular josué ablation 12/30/2024 Orders Only [facility] [address] [place] [phone] Jarett Yousif MD ICD (implantable cardioverter-defibrilla tor) in place (Primary Dx); Permanent atrial fibrillation (HCC); 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; S/P AV josué ablation; Congestive heart failure, unspecified HF chronicity, unspecified heart failure type (HCC) 12/29/2024 Telephone [facility] [address] [place] [phone] Jarett Yousif MD 12/04/2024 11:30 AM CDT Office Visit [facility] [address] [place] [address] [place] [phone] Letitia Kumar NP Coronary artery disease of yocha dehe heart with stable angina pectoris, unspecified vessel or lesion type (Primary Dx); 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; Permanent atrial fibrillation (HCC); Chronic anticoagulation 11/24/2024 8:45 AM CDT Ancillary Procedure [facility] [address] [place] [phone] 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 (Primary Dx); Cardiomyopathy, unspecified type (HCC); SSS (sick sinus syndrome) (HCC); Permanent atrial fibrillation (HCC); Congestive heart failure, unspecified HF chronicity, unspecified heart failure type (HCC) 11/09/2024 8:45 AM CDT Office Visit [facility] [address] [place] [address] [place] [phone] Jarett Yousif MD Biventricular ICD (implantable [...] drink = 0.6 oz pur e alcohol) [facility] Utilities Answer Date Recorded In the past 12 months has [employer], gas, oil, or water [employer] threatened to shut off services in your home? No 01/21/2025 Social Connection and Isolat ion Panel [NHANES] Answer Date Recorded In a typical week, how many times do you talk on the phone with family, friends, or neighbors? More than three times a week 01/21/2025 How often do you get togethe r with friends or relatives? More than three times a week 01/21/2025 How often do you attend chur ch or muslim services? Never 01/21/2025 Do you belong to any clubs o r organizations such as jainism groups, unions, fraternal or athletic groups, or school groups? No 01/21/2025 How often do you attend meet ings of the clubs or organizations you belong to? Never 01/21/2025 Are you , , di vorced, , never , or living with a partner? 01/21/2025 AUDIT-C Answer Date Recorded Q1: How often do you have a drink containing alc ohol? 2-4 times a month 10/28/2023 Q2: How many drinks containi ng alcohol do you have on a typical day when you are drinking? 1 or 2 10/28/2023 Q3: How often do you have si x or more drinks on one occasion? Never 10/28/2023 Overall Financial Resource Strain (CARDIA) Answe r Date Recorded How hard is it for you to pa y for the very basics like food, housing, medical care, and heating? Not hard at all 01/21/2025 Hunger Vital Sign Answer Date Recorded Within the past 12 months, y ou worried that your food would run out before you got the money to buy more. Never true 01/22/20 25 Within the past 12 months, t he food you bought just didn't last and you didn't have money to get more. Never true 01/21/2025 PRAPARE - Transportation Answer Date Re corded In the past 12 months, has l ack of transportation kept you from medical appointments or from getting medications? No 12/25 In the past 12 months, has l ack of transportation kept you from meetings, work, or from getting things needed for daily living? No 01/21/2025 Housing Stability Vital Sign Answer Ayush e Recorded In the last 12 months, was t here a time when you were not able to pay the mortgage or rent on time? No 01/21/2025 Number of Times Moved in the Last Year Not on fi le 01/21/2025 At any time in the past 12 m [facility], were you homeless or living in a longterm (including now)? No 01/21/2025 Personal Safety Answer Date Recorded Have you ever been in or are you currently in a harmful physical or emotional relationship or is someone making you feel afraid or unsafe? Denies 01/20/2025 Sex and Gender Information Value Date Recorded Sex Assigned at Not on file Legal Sex Male 1:59 AM BUSINESS AND FINANCIAL COUNSEL Gender Identity Not on file Sexual Orientation Not on file Obstetrics History Last Filed Vital Signs Vital Sign Reading Time Taken Comments Blood Pressure 101/58 01/23/2025 10:36 AM CDT Pulse 70 01/23/2025 6:00 AM CDT Temperature 36.6 C (97.8 F) 01/23/2025 10:36 AM CDT Respiratory Rate 18 01/23/2025 10:3 6 AM CDT Oxygen Saturation 92% 01/23/2025 10: 36 AM CDT Inhaled Oxygen Concentration - - Weight 74.3 kg (163 lb 12.8 oz) 01/20/2025 7:34 PM CDT Height 172.7 cm (5' 8) 01/20/2025 7:34 PM CDT Body Mass Index 24.91 01/20/2025 7:34 PM CDT Plan of Treatment Health Maintenance Due Date Last Done Comments Depression Screening 1940 Hepatitis B Screening 1959 Pneumococcal vaccine 65+ (1 of 2 - PCV) 1960 Zoster Vaccine (1 of 2) 1991 Well Visit 65+ 2006 Influenza Vaccine (Season Ended) 2025 05/21/2022, 06/21/2020, 04/26/2020, Additional history exists Fall Risk Assessment 01/23/2026 01/23/2025 DTaP/Tdap/Td Vaccine (2 - Td or Tdap) 06/28/2030 06/28/2020 Medical Devices Implanted Type Area Die Sinker Device Identifier Shelf Expiration Date Model / Serial / Lot Icd ICD Heart Pacemaker Pacemaker Heart Description:PACEMAKER/ICD Stent Implanted:Qty: 2 Stent Heart [employer] Defib Cardiac [id number] [place] Hf Df4 Is-4 Is-1 Cnctr [id number] - [id number] - [id number] Implanted:Qty: 1 on 10/28/2023 by Eric Ojeda MD at [facility] [employer] 08/25/2025 [id number] / [id number] / Procedures Procedure Name Priority Date/Time Associated Diagnosis Comments HEMOGLOBIN AND HEMATOCRIT STAT 2024 11:28 AM CDT EGFR Routine 01/23/2025 4:04 AM CDT DIFFERENTIAL AUTO Routine 01/23/2025 4:04 AM CDT CBC WITH AUTO DIFFERENTIAL Routine 01/23 4:04 AM CDT MAGNESIUM Routine 01/23/2025 4:04 AM CDT COMPREHENSIVE METABOLIC PANEL Routine 4:04 AM CDT ESOPHAGOGASTRODUODENOSCOPY 01/22 12:15 PM CDT Gastrointestinal hemorrhage, unspecified gastrointestinal hemorrhage type COLON CONTROL BLEEDING 12:15 PM CDT Gastrointestinal hemorrhage, unspecified gastrointestinal hemorrhage type EGD 01/22/2025 11:51 AM CDT COLONOSCOPY 01/22/2025 11:49 AM CDT SURGICAL PATHOLOGY STAT 01/22/2025 9:52 AM CDT Gastrointestinal hemorrhage, unspecified gastrointestinal hemorrhage type EGFR Routine 01/22/2025 4:18 AM CDT DIFFERENTIAL AUTO Routine 01/22/2025 4:18 AM CDT CBC WITH AUTO DIFFERENTIAL Routine 01/22 4:18 AM CDT MAGNESIUM Routine 01/22/2025 4:18 AM CDT COMPREHENSIVE METABOLIC PANEL Routine 4:18 AM CDT PROTIME-INR Routine 01/21/2025 12:44 PM CDT HEMOGLOBIN AND HEMATOCRIT Timed 2024 12:44 PM CDT EGFR Routine 01/21/2025 5:39 AM CDT DIFFERENTIAL AUTO Routine 01/21/2025 5:39 AM CDT LACTATE DEHYDROGENASE Routine 01/21/2025 5:39 AM CDT IRON PROFILE W/ IBC Routine 01/21/2025 5:39 AM CDT HAPTOGLOBIN Routine 01/21/2025 5:39 AM CDT FOLATE Routine 01/21/2025 5:39 AM CDT FERRITIN Routine 01/21/2025 5:39 AM CDT VITAMIN B12 Routine 01/21/2025 5:39 AM CDT CBC WITH AUTO DIFFERENTIAL Routine 01/21 5:39 AM CDT MAGNESIUM Routine 01/21/2025 5:39 AM CDT COMPREHENSIVE METABOLIC PANEL Routine 5:39 AM CDT HEMOGLOBIN AND HEMATOCRIT Timed 2024 5:39 AM CDT URINALYSIS AND REFLEX TO MICROSCOPIC AND CULTURE Routine 01/21/2025 4:38 AM CDT TRANSFUSE RED BLOOD CELLS Timed 2024 1:30 AM CDT PREPARE RBC Timed 01/21/2025 1:23 AM CDT PREPARE RBC Routine 01/21/2025 1:16 AM CDT HEMOGLOBIN AND HEMATOCRIT Timed 2024 12:[address] CHEST ABDOMEN PELVIS WO CONTRAST ED Urgent/IP Urgent 01/20/2025 10:14 PM CDT ECG 12-LEAD STAT 01/20/2025 9:11 PM CDT B ABO / RH CONFIRMATION TESTING STAT 01/20/2025 8:20 PM CDT PRO B-TYPE NATRIURETIC PEPTIDE STAT 0 01/20/2025 8:20 PM CDT CROSSMATCH Timed 01/20/2025 7:21 PM CDT EGFR STAT 01/20/2025 7:21 PM CDT TROPONIN T HIGH-SENSITIVITY Routine 12/25 7:21 PM CDT DIFFERENTIAL AUTO STAT 01/20/2025 7:21 PM CDT ANTIBODY SCREEN Timed 01/20/2025 7:21 PM CDT ABO/RH Timed 01/20/2025 7:21 PM CDT TYPE AND SCREEN Timed 01/20/2025 7:21 PM CDT PHOSPHORUS STAT 01/20/2025 7:21 PM CDT MAGNESIUM STAT 01/20/2025 7:21 PM CDT COMPREHENSIVE METABOLIC PANEL STAT 7:21 PM CDT CBC WITH AUTO DIFFERENTIAL STAT 01/20 7:21 PM CDT BMP - BASIC METABOLIC PANEL (7) Routine 01/05/2025 9:41 AM CDT DEVICE CHECK - REMOTE Routine 01/04/2025 1:06 PM CDT ICD (implantable cardioverter-defibr illator) in place Permanent atrial fibrillation (HCC) Biventricular ICD (implantable cardioverter-defibr illator) in place S/P AV josué ablation Congestive heart failure, unspecified HF chronicity, unspecified heart failure type (HCC) DEVICE CHECK - IN OFFICE Routine 025 9:48 AM CDT Longstanding persistent atrial fibrillation (HCC) SSS (sick sinus syndrome) (HCC) Congestive heart failure, unspecified HF chronicity, unspecified heart failure type (HCC) Biventricular ICD (implantable cardioverter-defibr illator) in place History of atrioventricular josué ablation DEVICE CHECK - REMOTE Routine 11/24/2024 10:05 AM CDT Cardiomyopathy, unspecified type (HCC) SSS (sick sinus syndrome) (HCC) Permanent atrial fibrillation (HCC) from Last 3 Months Results * (ABNORMAL) Hemoglobin and hematocrit (01/23/2025 11:28 AM CDT) Hgb 7.7(L) 13.0 - 17.5 g/dL Hct 24.5(L) 38.9 - 50.3 % [facility] ([place]) Blood 01/23/2025 11:2 8 AM CDT 01/23/2025 11:31 AM CDT us Zenia Vázquez MD LAB BLOOD ORDERABLES Final Resu lt [facility] ([place]) [address] [facility] [place] [address] * (ABNORMAL) eGFR (01/23/2025 4:04 AM CDT) eGFR 52(L) >=60 mL/min/1. 73 m2 Comment: Interpretive Data Reference Interval Normal >/= 90 mL/min/1.73m2 Mildly decreased* 60 - 89 mL/min/1.73m2 Mildly to moderately decreased 45 - 59 mL/min/1.73m2 Moderately to severely decreased 30 - 44 mL/min/1.73m2 Severely decreased 15 - 29 mL/min/1.73m2 Kidney Failure < 15 mL/min/1.73m2 *Relative to young adult level Estimated glomerular filtration rate is determined by the 2020 CKD-EPI equation recommended by the National Kidney Foundation (A Unifying Approach to GFR Estimation: Recommendations of the NKF-ASK Task Force on Reassessing the Inclusion of Race in Diagnosing Kidney Disease, JASN 2020). The CKD-EPI equation should not be used for patients with unstable renal function and has not been validated in children and those over 70. Current interpretive data was last reviewed 2021. Blood 01/23/2025 4:04 AM CDT 01/23/2025 4:59 AM CDT us Celeste Velez MD LAB BLOOD ORDERABLES Fi nal Result [facility] ([place]) [address] [facility] [place] [address] * (ABNORMAL) Differential, auto (01/23/2025 4:04 AM CDT) Neutrophil abs 3.87 1.50 - 6.50 K/cumm Imm gran abs 0.02 0.00 - 0.10 K/cumm [facility] ([place]) Lymphocyte abs 0.78(L) 0.80 - 3.30 K/cumm [facility] ([place]) Monocyte abs 0.75 0.20 - 0.80 K/cumm [facility] ([place]) Eosinophil abs 0.12 0.00 - 0.50 K/cumm [facility] ([place]) Basophil abs 0.01 0.00 - 0.10 K/cumm [facility] ([place]) Neutrophil pct 69.6 % [facility] ([place]) Comment: Interpretive Data Percent cell count reference ranges are not reported, since discordance with absolute values may lead to misinterpretation of CBC data. Current Interpretive Data was last revised on 2017. Imm gran pct 0.4 % [facility] ([place]) Comment: Interpretive Data Percent cell count reference ranges are not reported, since discordance with absolute values may lead to misinterpretation of CBC data. Current Interpretive Data was last revised on 2017. Lymphocyte pct 14.1 % [facility] ([place]) Comment: Interpretive Data Percent cell count reference ranges are not reported, since discordance with absolute values may lead to misinterpretation of CBC data. Current Interpretive Data was last revised on 2017. Monocyte pct 13.5 % [facility] ([place]) Comment: Interpretive Data Percent cell count reference ranges are not reported, since discordance with absolute values may lead to misinterpretation of CBC data. Current Interpretive Data was last revised on 2017. Eosinophil pct 2.2 % [facility] ([place]) Comment: Interpretive Data Percent cell count reference ranges are not reported, since discordance with absolute values may lead to misinterpretation of CBC data. Current Interpretive Data was last revised on 2017. Basophil pct 0.2 % [facility] ([place]) Comment: Interpretive Data Percent cell count reference ranges are not reported, since discordance with absolute values may lead to misinterpretation of CBC data. Current Interpretive Data was last revised on 2017. Blood 01/23/2025 4:04 AM CDT 01/23/2025 4:59 AM CDT us Celeste Velez MD LAB BLOOD ORDERABLES nal Result [facility] ([place]) [address] [facility] [place] [address] * (ABNORMAL) CBC with auto differential (01/23/2025 4:04 AM CDT) WBC 5.55 3.80 - 9.90 K/cumm Hgb 7.2(L) 13.0 - 17.5 g/dL [facility] ([place]) Hct 22.7(L) 38.9 - 50.3 % [facility] ([place]) Plt 97(L) 150 - 400 K/cumm [facility] ([place]) MPV 10.1 9.1 - 12.3 fL [facility] ([place]) RBC 2.35(L) 4.30 - 5.80 M/cumm [facility] ([place]) MCV 96.6(H) 81.3 - 96.4 fL [facility] ([place]) MCH 30.6 27.1 - 33.3 pg [facility] ([place]) MCHC 31.7(L) 32.3 - 35.7 g/dL [facility] ([place]) RDW CV 17.5(H) 11.1 - 14.9 % [facility] ([place]) RDW SD 62.5(H) 35.7 - 48.1 fL [facility] NRBC abs 0.00 0.00 - 0.01 K/cumm [facility] Blood 01/23/2025 4:04 AM CDT 01/23/2025 4:59 AM CDT Celeste Velez MD LAB BLOOD ORDERABLES Fi nal Result Performing Organization Address City/[facility]/ZIP Co de Phone Number [facility] ([place]) [address] [facility] [place] [address] * Magnesium (01/23/2025 4:04 AM CDT) Pathologist [facility] Magnesium 1.7 1.4 - 2.5 mg/dL Blood 01/23/2025 4:04 AM CDT 01/23/2025 4:59 AM CDT Celeste Velez MD LAB BLOOD ORDERABLES Fi nal Result Performing Organization Address City/[facility]/ZIP Co de Phone Number [facility] ([place]) 1 [facility] [place] [address] * (ABNORMAL) Comprehensive metabolic panel (01/23/2025 4:04 AM CDT) Sodium 139 135 - 145 mmol/L Potassium, pl 3.4 3.3 - 4.9 mmol/L [facility] ([place]) Chloride 106 97 - 110 mmol/L [facility] ([place]) CO2 21(L) 22 - 32 mmol/L [facility] ([place]) Anion gap 12 2 - 15 mmol/L [facility] ([place]) BUN 16 6 - 25 mg/dL [facility] ([place]) Creatinine 1.36(H) 0.80 - 1.30 mg/dL [facility] ([place]) Glucose 110 70 - 199 mg/dL [facility] ([place]) Comment: Interpretive Data Fasting glucose >/= 126 mg/dl is diagnostic for diabetes. Fasting is defined as no caloric intake for at least 8 hours. Fasting glucose between 100 mg/dl to 125 mg/dl is diagnostic of prediabetes. In a patient with classic symptoms of hyperglycemia or hyperglycemic crisis, a random glucose >/= 200 mg/dl is diagnostic for diabetes. In the absence of unequivocal hyperglycemia, results should be confirmed by repeat testing. The classification and Diagnosis of Diabetes Diabetes Care 2021; 46: S19-S40. Current interpretive data was last revised 2022. Calcium 8.3(L) 8.5 - 10.3 mg/dL [facility] ([place]) Bilirubin, total 0.7 0.1 - 1.2 mg/dL [facility] ([place]) Protein, pl 5.8(L) 6.5 - 8.5 g/dL [facility] ([place]) Albumin 3.4(L) 3.5 - 5.0 g/dL [facility] ([place]) Alk phos 26(L) 40 - 130 Units/L [facility] ([place]) ALT 10 7 - 55 Units/L [facility] ([place]) AST 24 10 - 50 Units/L [facility] ([place]) Comment: Hemolysis present. Results may be affected. Slightly Hemolyzed Specimen Blood 01/23/2025 4:04 AM CDT 01/23/2025 4:59 AM CDT us Celeste Velez MD LAB BLOOD ORDERABLES Fi nal Result [facility] ([place]) [address] [facility] [place] [address] * EGD (01/22/2025 11:51 AM CDT) Anatomical Region Laterality Modality Other Narrative Procedure Note Karey Dong MD - 01/22/2025 11:51 AM CDT [facility] Patient Name: Elida Rodas Procedure Date: 01/22/2025 11:51 AM Date of : 1940 Admit Type: Inpatient Age: 84 Gender: Male Attending MD: Karey Dong M.D. Room: [facility] ENDOSCOPY ROOM 2 Note Status: Finalized Patient Profile: This is an 84 year old male hx of CAD status post CABG, aortic stenosis s/p TAVR, AAA, CHF s/p ICD,AF on Eliquis, HTN, HLD, BPH GERD anxiety depression preseneted to the hospital due to concerns of acuteon chronci anemia. Hgb was 12.3 two months ago and noted to be 7.2 on admission. occult test was positive recently and he has been noticing some black and maroon stools. Previous EGD and colonoscopy 04/2022. Colonoscopy noted an 8-9 mm sessile rectal polyp, multiple diverticula in the left colon, internalhemorrhoids. EGD noted slightly irregular Z-line, small hiatal hernia, moderate inflammation characterized by a couple of erosions and focal erythema in the entire examined stomach. Procedure: Upper GI endoscopy Indications: Iron deficiency anemia secondary to chronic blood loss, Hematochezia, Melena Referring MD: Ruddy Yang M.D. Providers: Karey Dong M.D. Impression: - LA Grade A reflux esophagitis with no bleeding. Biopsied. - Small hiatal hernia. - Normal stomach. - Normal examined duodenum. Recommendation: - Await pathology results. - Use Protonix (pantoprazole) 40 mg PO daily for 3 months then transition to famotidine 20 mg for GI prophylaxis in the setting of anticoagulation. - Proceed with colonoscopy Medicines: Monitored Anesthesia Care Complications: No immediate complications. Estimated Blood Loss: Estimated blood loss was minimal. Procedure: Pre-Anesthesia Assessment: - Prior to the procedure, a History and Physicalwas performed, and patient medications and allergieswere reviewed. The patient is competent. The risks and benefits of the procedure and the sedation optionsand risks were discussed with the patient. Allquestions were answered and informed consent was obtained. Patient identification and proposed procedure were verified by the physician, the preschool associate teacher and the biomedical electronics technician in the endoscopy suite. Mental Status Examination: normal. Prophylactic Antibiotics: The patient does not require prophylactic antibiotics. Prior Anticoagulants: The patient has taken Eliquis (apixaban). After reviewing the risks and benefits, the patient was deemed in satisfactory condition to undergo the procedure. The anesthesia plan was touse monitored anesthesia care (MAC). Immediately priorto administration of medications, the patient was re-assessed for adequacy to receive sedatives. The heart rate, respiratory rate, oxygen saturations, blood pressure, adequacy of pulmonary ventilation,and response to care were monitored throughout the procedure. The physical status of the patient was re-assessed after the procedure. The benefits, risks, and alternatives to theprocedure and sedation were discussed and informed consentwas obtained. The scope was passed under direct vision. The Endoscope GIF-H190 [id number] was introduced through the mouth, and advanced to the second partof duodenum. Findings: LA Grade A (one or more mucosal breaks less than 5 mm, not extending between tops of 2 mucosal folds) esophagitis with no bleeding wasfound at the gastroesophageal junction. Biopsies were taken with a cold forceps for histology. A small 2 cm hiatal hernia was present. The stomach was normal. The examined duodenum was normal. Karey Dong M.D. 01/22/2025 1:54:21 PM Number of Addenda: 0 Note Initiated On: 01/22/2025 11:51 AM Procedure Code(s): --- Professional --- 21486, Esophagogastroduodenoscopy, flexible, transoral; with biopsy, single or multiple --- Technical --- 41134, Esophagogastroduodenoscopy, flexible, transoral; with biopsy, single or multiple Diagnosis Code(s): --- Professional --- K21.00, Gastro-esophageal reflux disease with esophagitis, without bleeding D50.0, Iron deficiency anemia secondary to blood loss (chronic) K92.1, Melena (includes Hematochezia) --- Technical --- K21.00, Gastro-esophageal reflux disease with esophagitis, without bleeding D50.0, Iron deficiency anemia secondary to blood loss (chronic) K92.1, Melena (includes Hematochezia) CPT copyright 2020 [place] [employer]. All rights reserved. The codes documented in this report are preliminary and upon steam power plant operator reviewmay be revised to meet current compliance requirements. Recognized by the [place] [employer] for promoting quality in endoscopy Karey Dong MD ENDOSCOPY PROCEDURES Final Resul t * Colonoscopy (01/22/2025 11:49 AM CDT) Anatomical Region Laterality Modality Other Narrative Procedure Note Karey Dong MD - 01/22/2025 11:49 AM CDT [facility] Patient Name: Elida Rodas Procedure Date: 01/22/2025 11:49 AM Date of : 1940 Admit Type: Inpatient Age: 84 Gender: Male Attending MD: Karey Dong M.D. Room: [facility] ENDOSCOPY ROOM 2 Note Status: Finalized Patient Profile: This is an 84 year old male here for acute onchronic anemia, melena and hematochezia. See EGD reportfrom same day for full history. Procedure: Colonoscopy Indications: Last colonoscopy: 2021, Hematochezia, Melena, Iron deficiency anemia secondary to chronic blood loss Referring MD: Ruddy Yang M.D. Providers: Karey Dong M.D. Impression: - Preparation of the colon was inadequate for polyp surveillance - A single bleeding colonic angioectasia. Treatedwith argon plasma coagulation (APC). Clip (MRconditional) was placed. Clip load test mechanic: Noknoker. - One 8 mm polyp in the ascending colon. Resectionnot attempted due to inadequate prep and patient'sactive bleeding. - Diverticulosis in the left colon. - External and internal hemorrhoids. - No specimens collected. Recommendation: - Return patient to [facility] for ongoingcare. - GI soft diet. - Repeat colonoscopy in 6 months with 2 day prep. - Hold anticoagulation for a week. Medicines: Monitored Anesthesia Care Complications: No immediate complications. Estimated Blood Loss: Estimated blood loss was minimal. Procedure: Pre-Anesthesia Assessment: - Prior to the procedure, a History and Physicalwas performed, and patient medications and allergieswere reviewed. The patient is competent. The risks and benefits of the procedure and the sedation optionsand risks were discussed with the patient. Allquestions were answered and informed consent was obtained. Patient identification and proposed procedure were verified by the physician, the preschool associate teacher and the biomedical electronics technician in the endoscopy suite. Mental Status Examination: normal. Prophylactic Antibiotics: The patient does not require prophylactic antibiotics. Prior Anticoagulants: The patient has taken Eliquis (apixaban). After reviewing the risks and benefits, the patient was deemed in satisfactory condition to undergo the procedure. The anesthesia plan was touse monitored anesthesia care (MAC). Immediately priorto administration of medications, the patient was re-assessed for adequacy to receive sedatives. The heart rate, respiratory rate, oxygen saturations, blood pressure, adequacy of pulmonary ventilation,and response to care were monitored throughout the procedure. The physical status of the patient was re-assessed after the procedure. The benefits, risks and alternatives of theprocedure and sedation were discussed and informed consentwas obtained. All questions were answered. Please referto the signed informed consent document in the medical record. The bowel preparation used was Miralax via split dose instruction. The bowel preparation usedwas bisacodyl tablets via split dose instruction. The scope was passed under direct vision. The Pediatric Colonoscope [id number]-H190L [id number] was introducedthrough the anus and advanced to the the cecum, identifiedby appendiceal orifice and ileocecal valve. The colonoscopy was somewhat difficult due to poor endoscopic visualization. The patient tolerated the procedure well. The quality of the bowelpreparation was inadequate. Bowel prep was administered using a split dose. Findings: The perianal and digital rectal examinations were normal. A single localized angioectasia with bleeding was found in the cecum. Coagulation for hemostasis using argon plasma was successful. One hemostatic clip was successfully placed (MR conditional). Clip load test mechanic: Noknoker. There was no bleeding at the end ofthe procedure. An 8 mm polyp was found in the ascending colon. The polyp wassessile. Polypectomy was not attempted due to poor endoscopic visualization. Scattered small and large-mouthed diverticula were found in the left colon. External and internal hemorrhoids were found during retroflexion. Karey Dong M.D. 01/22/2025 2:03:39 PM Number of Addenda: 0 Note Initiated On: 01/22/2025 11:49 AM Procedure Code(s): --- Professional --- 20835, Colonoscopy, flexible; with control of bleeding, any method --- Technical --- 51454, Colonoscopy, flexible; with control of bleeding, any method Diagnosis Code(s): --- Professional --- K64.8, Other hemorrhoids K55.21, Angiodysplasia of colon with hemorrhage K92.1, Melena (includes Hematochezia) D50.0, Iron deficiency anemia secondary to blood loss (chronic) K57.30, Diverticulosis of large intestine without perforation orabscess without bleeding --- Technical --- K64.8, Other hemorrhoids K55.21, Angiodysplasia of colon with hemorrhage K92.1, Melena (includes Hematochezia) D50.0, Iron deficiency anemia secondary to blood loss (chronic) K57.30, Diverticulosis of large intestine without perforation orabscess without bleeding CPT copyright 2020 [place] [employer]. All rights reserved. The codes documented in this report are preliminary and upon steam power plant operator reviewmay be revised to meet current compliance requirements. Recognized by the [place] [employer] for promoting quality in endoscopy Karey Dong MD ENDOSCOPY PROCEDURES Final Resul t * Surgical pathology (01/22/2025 9:52 AM CDT) Tissue (EG Junction, Biopsy) 01/22/2025 12:48 PM CDT Narrative PATHOLOGY [facility] - 01/26/2025 2:52 PM CDT EPIC results best viewed via link to PDF [facility] Department of Pathology [address] [place] [address] Note to Patients: This report may contain a detailed description of human tissue sent by a health care provider to the laboratory for pathologic evaluation. The content of this report is essential for diagnosis and may provide important critical findings. This information may be unfamiliar to patients to review without a medical professional present. It is advised that the patient review this report in the presence of a health care provider who can answer questions and explain the details. Final Report Patient Name: ELIDA RODAS Address: [address] [place] [id number] Gender: M : 1940 (Age: 84) Service: Medical Location: [facility] Hospital #: [id number] Patient Type: [facility] Taken: 01/22/2025 Received: 01/25/2025 Accessioned: 01/25/2025 Reported: 01/26/2025 Physician(s):Karey Dong MD Diagnosis: A. EG junction, endoscopic biopsy- Squamoglandular mucosa with focal glandular atypia suspicious for low-grade dysplasia Negative for high-grade dysplasia and carcinoma Danette Henderson M.D. Report Electronically Reviewed and Signed Out By Danette Henderson M.D. 01/26/2025 14:52:26 Specimen(s) Received: A: EG Junction, Biopsy Microscopic Description: Sections demonstrate squamoglandular mucosa with minimal congestion and mixed inflammation. Focally, collection of glands demonstrate somewhat prominent nuclear enlargement with hyperchromasia distally and occasional prominent nucleoli. Rare mitotic figures are also noted. Goblet cell metaplasia is not seen. This area does not appear particularly inflamed and is suspicious for but not quite diagnostic of low-grade dysplasia. There is no evidence of high-grade dysplasia or malignancy material examined. Dr. Thorpe has reviewed this case and concurs with the interpretation. Clinical History: GI hemorrhage. EGD. Gross Description: The specimen is submitted in a single formalin filled container labeled ELIDA VERCOGLIO and GE junction biopsy. It is 3 fragments of pale mucosa, 2 mm. All in one cassette. Casandra Green/Arun Stewart M.D. REPORT IMAGES AND SCANNED DOCUMENTS, IF INCLUDED, ONLY VIEWABLE IN PDF VERSION OF REPORT The performance characteristics of some immunohistochemical stains, fluorescence in-situ hybridization tests and immunophenotyping by flow cytometry cited in this report (if any) were determined by the Surgical Pathology Department at [facility] as part of an ongoing quality control representative program and in compliance with federally mandated regulations drawn from the Clinical Laboratory Improvement Act of 1988 (CLIA '88). Some of these tests rely on the use of analyte specific reagents and are subject to specific labeling requirements by the US Food and Drug Administration. Such diagnostic tests may only be performed in a facility that is certified by the Department of Health and Human Services as a high complexity laboratory under CLIA '88. The FDA has determined that such clearance or approval is not necessary. This test is used for clinical purposes. It should not be regarded as investigational or for research. Nevertheless, federal rules concerning the medical use of analyte specific reagents require that the following disclaimer be attached to the report: This test was developed and its performance characteristics determined by the Surgical Pathology Department [facility]. It has not been cleared or approved by the U. S. Food and Drug Administration. Note for decalcified specimens: This assay has not been validated on decalcified tissues. Results should be interpreted with caution given the possibility of false negativity on decalcified specimens us Karey Dong MD LAB PATHOLOGY ORDERABLES Final R esult Performing Organization Address [facility]/ZIP Co de Phone Number PATHOLOGY [facility] ([place]) [address] [place] [phone] * (ABNORMAL) eGFR (01/22/2025 4:18 AM CDT) eGFR 50(L) >=60 mL/min/1. 73 m2 Comment: Interpretive Data Reference Interval Normal >/= 90 mL/min/1.73m2 Mildly decreased* 60 - 89 mL/min/1.73m2 Mildly to moderately decreased 45 - 59 mL/min/1.73m2 Moderately to severely decreased 30 - 44 mL/min/1.73m2 Severely decreased 15 - 29 mL/min/1.73m2 Kidney Failure < 15 mL/min/1.73m2 *Relative to young adult level Estimated glomerular filtration rate is determined by the 2020 CKD-EPI equation recommended by the National Kidney Foundation (A Unifying Approach to GFR Estimation: Recommendations of the NKF-ASK Task Force on Reassessing the Inclusion of Race in Diagnosing Kidney Disease, JASN 202). The CKD-EPI equation should not be used for patients with unstable renal function and has not been validated in children and those over 70. Current interpretive data was last reviewed 2021. Blood 01/22/2025 4:18 AM CDT 01/22/2025 5:29 AM CDT us Celeste Velez MD LAB BLOOD ORDERABLES Fi nal Result Performing Organization Address City/[facility]/ZIP Co de Phone Number [facility] [address] [place] [address] Department of Laboratories [place] [phone] * Differential, auto (01/22/2025 4:18 AM CDT) Neutrophil abs 3.10 1.50 - 6.50 K/cumm Imm gran abs 0.00 0.00 - 0.10 K/cumm [facility]) Lymphocyte abs 0.81 0.80 - 3.30 K/cumm [facility]) Monocyte abs 0.63 0.20 - 0.80 K/cumm [facility]) Eosinophil abs 0.15 0.00 - 0.50 K/cumm [facility]) Basophil abs 0.02 0.00 - 0.10 K/cumm [facility] Neutrophil pct 65.8 % [facility] ([place]) Comment: Interpretive Data Percent cell count reference ranges are not reported, since discordance with absolute values may lead to misinterpretation of CBC data. Current Interpretive Data was last revised on 2017. Imm gran pct 0.0 % [facility] Comment: Interpretive Data Percent cell count reference ranges are not reported, since discordance with absolute values may lead to misinterpretation of CBC data. Current Interpretive Data was last revised on 2017. Lymphocyte pct 17.2 % [facility] ([place] Comment: Interpretive Data Percent cell count reference ranges are not reported, since discordance with absolute values may lead to misinterpretation of CBC data. Current Interpretive Data was last revised on 2017. Monocyte pct 13.4 % [facility] ([place] Comment: Interpretive Data Percent cell count reference ranges are not reported, since discordance with absolute values may lead to misinterpretation of CBC data. Current Interpretive Data was last revised on 2017. Eosinophil pct 3.2 % [facility] Comment: Interpretive Data Percent cell count reference ranges are not reported, since discordance with absolute values may lead to misinterpretation of CBC data. Current Interpretive Data was last revised on 2017. Basophil pct 0.4 % [facility] Comment: Interpretive Data Percent cell count reference ranges are not reported, since discordance with absolute values may lead to misinterpretation of CBC data. Current Interpretive Data was last revised on 2017. Blood 01/22/2025 4:18 AM CDT 01/22/2025 5:30 AM CDT us Celeste Velez MD LAB BLOOD ORDERABLES Fi nal Result [facility] [address] [facility] [place] [address] * (ABNORMAL) CBC with auto differential (01/22/2025 4:18 AM CDT) WBC 4.71 3.80 - 9.90 K/cumm Hgb 7.8(L) 13.0 - 17.5 g/dL [facility] Hct 24.3(L) 38.9 - 50.3 % [facility] Plt 104(L) 150 - 400 K/cumm [facility] MPV 9.9 9.1 - 12.3 fL [facility] RBC 2.54(L) 4.30 - 5.80 M/cumm [facility] MCV 95.7 81.3 - 96.4 fL [facility] MCH 30.7 27.1 - 33.3 pg [facility] MCHC 32.1(L) 32.3 - 35.7 g/dL [facility] RDW CV 18.1(H) 11.1 - 14.9 % [facility] RDW SD 63.9(H) 35.7 - 48.1 fL [facility] NRBC abs 0.00 0.00 - 0.01 K/cumm [facility] Blood 01/22/2025 4:18 AM CDT 01/22/2025 5:30 AM CDT us Celeste Velez MD LAB BLOOD ORDERABLES Fi nal Result [facility] [address] [facility] [place] [address] * Magnesium (01/22/2025 4:18 AM CDT) Pathologist [facility] Magnesium 1.7 1.4 - 2.5 mg/dL Blood 01/22/2025 4:18 AM CDT 01/22/2025 5:29 AM CDT us Celeste Velez MD LAB BLOOD ORDERABLES [facility] Result [facility] [address] [facility] [place] [address] * (ABNORMAL) Comprehensive metabolic panel (01/22/2025 4:18 AM CDT) Pathologist [facility] Sodium 138 135 - 145 mmol/L Potassium, pl 3.3 3.3 - 4.9 mmol/L [facility] Chloride 103 97 - 110 mmol/L [facility] CO2 20(L) 22 - 32 mmol/L [facility] Anion gap 15 2 - 15 mmol/L [facility] BUN 22 6 - 25 mg/dL [facility] Creatinine 1.40(H) 0.80 - 1.30 mg/dL [facility] Glucose 111 70 - 199 mg/dL [facility] Comment: Interpretive Data Fasting glucose >/= 126 mg/dl is diagnostic for diabetes. Fasting is defined as no caloric intake for at least 8 hours. Fasting glucose between 100 mg/dl to 125 mg/dl is diagnostic of prediabetes. In a patient with classic symptoms of hyperglycemia or hyperglycemic crisis, a random glucose >/= 200 mg/dl is diagnostic for diabetes. In the absence of unequivocal hyperglycemia, results should be confirmed by repeat testing. The classification and Diagnosis of Diabetes Diabetes Care 2021; 46: S19-S40. Current interpretive data was last revised 2022. Calcium 8.8 8.5 - 10.3 mg/dL [facility] Bilirubin, total 1.0 0.1 - 1.2 mg/dL [facility] Protein, pl 6.1(L) 6.5 - 8.5 g/dL [facility] Albumin 3.6 3.5 - 5.0 g/dL [facility] Alk phos 26(L) 40 - 130 Units/L [facility] ALT 9 7 - 55 Units/L [facility] AST 17 10 - 50 Units/L [facility] Blood 01/22/2025 4:18 AM CDT 01/22/2025 5:29 AM CDT Celeste Velez MD LAB BLOOD ORDERABLES Fi nal Result Performing Organization Address City/[facility]/ZIP Co de Phone Number [facility] ([place]) [address] [place] [address] [place] [address] * (ABNORMAL) Hemoglobin and hematocrit (01/21/2025 12:44 PM CDT) Hgb 9.2(L) 13.0 - 17.5 g/dL Hct 28.3(L) 38.9 - 50.3 % [facility] ([place]) Blood 01/21/2025 12:4 4 PM CDT 01/21/2025 12:48 PM CDT Celeste Velez MD LAB BLOOD ORDERABLES Fi nal Result Performing Organization Address City/[facility]/ZIP Co de Phone Number [facility] ([place]) [address] [place] [address] [place] [address] * (ABNORMAL) Protime-INR (01/21/2025 12:44 PM CDT) PT 17.8(H) 9.7 - 13.0 sec [facility] INR 1.63(H) 0.90 - 1.20 [facility] Comment: Interpretive data Oral anticoagulant therapeutic ranges: Venous thromboembolism prophylaxis or treatment: 2.0-3.0 CARDIOLOGY Standard range: 2.0-3.0 High-intensity range: 2.5-3.5 Refer to indication-specific guidelines for appropriate target ranges for prosthetic heart valve replacement. Current interpretive data was last revised on 2019. Blood 01/21/2025 12:4 4 PM CDT 01/21/2025 12:48 PM CDT us Kailyn FAIRCHILD LAB BLOOD ORDERABLES Fin al Result Performing Organization Address City/[facility]/ZIP Co de Phone Number [facility] ([place]) [address] [facility] [place] [address] * (ABNORMAL) eGFR (01/21/2025 5:39 AM CDT) eGFR 46(L) >=60 mL/min/1. 73 m2 Comment: Interpretive Data Reference Interval Normal >/= 90 mL/min/1.73m2 Mildly decreased* 60 - 89 mL/min/1.73m2 Mildly to moderately decreased 45 - 59 mL/min/1.73m2 Moderately to severely decreased 30 - 44 mL/min/1.73m2 Severely decreased 15 - 29 mL/min/1.73m2 Kidney Failure < 15 mL/min/1.73m2 *Relative to young adult level Estimated glomerular filtration rate is determined by the 2020 CKD-EPI equation recommended by the National Kidney Foundation (A Unifying Approach to GFR Estimation: Recommendations of the NKF-ASK Task Force on Reassessing the Inclusion of Race in Diagnosing Kidney Disease, JASN 202). The CKD-EPI equation should not be used for patients with unstable renal function and has not been validated in children and those over 70. Current interpretive data was last reviewed 2021. Blood 01/21/2025 5:39 AM CDT 01/21/2025 5:52 AM CDT us Celeste Velez MD LAB BLOOD ORDERABLES Fi nal Result Performing Organization Address City/[facility]/ZIP Co de Phone Number [facility] [place] [address] [facility] [place] [address] * Differential, auto (01/21/2025 5:39 AM CDT) Neutrophil abs 2.78 1.50 - 6.50 K/cumm Imm gran abs 0.01 0.00 - 0.10 K/cumm [facility] Lymphocyte abs 1.04 0.80 - 3.30 K/cumm [facility]) Monocyte abs 0.60 0.20 - 0.80 K/cumm [facility] Eosinophil abs 0.12 0.00 - 0.50 K/cumm [facility] Basophil abs 0.01 0.00 - 0.10 K/cumm [facility] Neutrophil pct 61.0 % [facility] Comment: Interpretive Data Percent cell count reference ranges are not reported, since discordance with absolute values may lead to misinterpretation of CBC data. Current Interpretive Data was last revised on 2017. Imm gran pct 0.2 % [facility] Comment: Interpretive Data Percent cell count reference ranges are not reported, since discordance with absolute values may lead to misinterpretation of CBC data. Current Interpretive Data was last revised on 2017. Lymphocyte pct 22.8 % [facility] Comment: Interpretive Data Percent cell count reference ranges are not reported, since discordance with absolute values may lead to misinterpretation of CBC data. Current Interpretive Data was last revised on 2017. Monocyte pct 13.2 % [facility] Comment: Interpretive Data Percent cell count reference ranges are not reported, since discordance with absolute values may lead to misinterpretation of CBC data. Current Interpretive Data was last revised on 2017. Eosinophil pct 2.6 % [facility] Comment: Interpretive Data Percent cell count reference ranges are not reported, since discordance with absolute values may lead to misinterpretation of CBC data. Current Interpretive Data was last revised on 2017. Basophil pct 0.2 % [facility] Comment: Interpretive Data Percent cell count reference ranges are not reported, since discordance with absolute values may lead to misinterpretation of CBC data. Current Interpretive Data was last revised on 2017. Blood 01/21/2025 5:39 AM CDT 01/21/2025 5:52 AM CDT Celeste Velez MD LAB BLOOD ORDERABLES Fi nal Result JUNIOR AYALAN) 1 [facility] [place] [address] * Iron profile w/ IBC (01/21/2025 5:39 AM CDT) [facility] Iron 98 50 - 150 mcg/dL TIBC 285 250 - 400 mcg/dL [facility] ([place]) Transferrin saturation 34 20 - 50 % [facility] ([place]) Blood 01/21/2025 5:39 AM CDT 01/21/2025 5:52 AM CDT Celeste Velez MD LAB BLOOD ORDERABLES Fi nal Result Performing Organization Address [facility] [[email or web address]] Co de Phone Number JUNIOR MCNAMARA ([place]) 1 [facility] [place] [address] * (ABNORMAL) CBC with auto differential (01/21/2025 5:39 AM CDT) [facility] WBC 4.56 3.80 - 9.90 K/cumm Hgb 8.1(L) 13.0 - 17.5 g/dL [facility] ([place]) Hct 25.3(L) 38.9 - 50.3 % [facility] ([place]) Plt 105(L) 150 - 400 K/cumm [facility] ([place]) MPV 9.9 9.1 - 12.3 fL [facility] ([place]) RBC 2.59(L) 4.30 - 5.80 M/cumm [facility] ([place]) MCV 97.7(H) 81.3 - 96.4 fL [facility] ([place]) MCH 31.3 27.1 - 33.3 pg [facility] ([place]) MCHC 32.0(L) 32.3 - 35.7 g/dL [facility] ([place]) RDW CV 17.4(H) 11.1 - 14.9 % JUNIOR MCNAMARA ([place]) RDW SD 62.3(H) 35.7 - 48.1 fL JUNIOR MCNAMARA ([place]) NRBC abs 0.00 0.00 - 0.01 K/cumm JUNIOR MCNAMARA ([place]) Blood 01/21/2025 5:39 AM CDT 01/21/2025 5:52 AM CDT Celeste Velez MD LAB BLOOD ORDERABLES Fi nal Result JUNIOR MCNAMARA ([place]) 1 [facility] [place] [address] * (ABNORMAL) Hemoglobin and hematocrit (01/21/2025 5:39 AM CDT) Hgb 8.1(L) 13.0 - 17.5 g/dL Hct 25.1(L) 38.9 - 50.3 % JUNIOR MCNAMARA ([place]) Blood 01/21/2025 5:39 AM CDT 01/21/2025 5:52 AM CDT Celeste Velez MD LAB BLOOD ORDERABLES Fi nal Result Performing Organization Address City/[facility]/ZIP Co de Phone Number JUNIOR MCNAMARA ([place]) 1 [facility] [place] [address] * Magnesium (01/21/2025 5:39 AM CDT) Magnesium 1.8 1.4 - 2.5 mg/dL Blood 01/21/2025 5:39 AM CDT 01/21/2025 5:52 AM CDT Celeste Velez MD LAB BLOOD ORDERABLES Fi nal Result JUNIOR MCNAMARA ([place]) 1 [facility] [place] [address] * Lactate dehydrogenase (LD) (01/21/2025 5:39 AM CDT) Lactate dehydrogenase (LDH) 224 100 - 250 Units/L Blood 01/21/2025 5:39 AM CDT 01/21/2025 5:52 AM CDT Celeste Velez MD LAB BLOOD ORDERABLES Fi nal Result JUNIOR MCNAMARA ([place]) 1 [facility] [place] [address] * Haptoglobin (01/21/2025 5:39 AM CDT) Haptoglobin 68 30 - 200 mg/dL Comment:Testing performed by : [facility], [address] [place] [address], [id number] Blood 01/21/2025 5:39 AM CDT 01/21/2025 9:08 AM CDT Celeste Velez MD LAB BLOOD ORDERABLES Fi nal Result Performing Organization Address City/[facility] [[email or web address]] Co de Phone Number JUNIOR MCNAMARA ([place]) [address] [place] [address] [place] [address] * Folate (01/21/2025 5:39 AM CDT) Pathologist [facility] Folic acid >20.0 >=5.0 ng/mL Comment:Slightly Hemolyzed S pecimen. Results may be affected. Blood 01/21/2025 5:39 AM CDT 01/21/2025 5:52 AM CDT Celeste Velez MD LAB BLOOD ORDERABLES Fi nal Result JUNIOR MCNAMARA ([place]) 1 [facility] [place] [address] * Ferritin (01/21/2025 5:39 AM CDT) Ferritin 61 30 - 400 ng/mL Blood 01/21/2025 5:39 AM CDT 01/21/2025 5:52 AM CDT Celeste Velez MD LAB BLOOD ORDERABLES Fi nal Result JUNIOR MCNAMARA ([place]) 1 [place] [address] * Vitamin B12 (01/21/2025 5:39 AM CDT) Vitamin B12 688 230 - 1,250 pg/mL Blood 01/21/2025 5:39 AM CDT 01/21/2025 5:52 AM CDT Celeste Velez MD LAB BLOOD ORDERABLES Fi nal Result Performing Organization Address [facility] de Phone Number JUNIOR [facility] ([place]) 1 [facility] [place] [address] * (ABNORMAL) Comprehensive metabolic panel (01/21/2025 5:39 AM CDT) Sodium 140 135 - 145 mmol/L Potassium, pl 4.1 3.3 - 4.9 mmol/L [facility] ([place]) Chloride 104 97 - 110 mmol/L [facility] ([place]) CO2 23 22 - 32 mmol/L [facility] ([place]) Anion gap 13 2 - 15 mmol/L [facility] ([place]) BUN 25 6 - 25 mg/dL [facility] ([place]) Creatinine 1.49(H) 0.80 - 1.30 mg/dL [facility] ([place]) Comment:Icteric sample, test results may be affected. Glucose 103 70 - 199 mg/dL [facility] ([place]) Comment: Interpretive Data Fasting glucose >/= 126 mg/dl is diagnostic for diabetes. Fasting is defined as no caloric intake for at least 8 hours. Fasting glucose between 100 mg/dl to 125 mg/dl is diagnostic of prediabetes. In a patient with classic symptoms of hyperglycemia or hyperglycemic crisis, a random glucose >/= 200 mg/dl is diagnostic for diabetes. In the absence of unequivocal hyperglycemia, results should be confirmed by repeat testing. The classification and Diagnosis of Diabetes Diabetes Care 2021; 46: S19-S40. Current interpretive data was last revised 2022. Calcium 9.0 8.5 - 10.3 mg/dL [facility] ([place]) Bilirubin, total 1.2 0.1 - 1.2 mg/dL [facility] ([place]) Protein, pl 6.3(L) 6.5 - 8.5 g/dL [facility] ([place]) Albumin 3.8 3.5 - 5.0 g/dL [facility] ([place]) Alk phos 29(L) 40 - 130 Units/L [facility] ([place]) ALT 8 7 - 55 Units/L [facility] ([place]) AST 16 10 - 50 Units/L [facility] ([place]) Blood 01/21/2025 5:39 AM CDT 01/21/2025 5:52 AM CDT us Celeste Velez MD LAB BLOOD ORDERABLES nal Result [facility] ([place]) 1 [facility] [place] [address] * Urinalysis reflex to microscopic and culture Urine (01/21/2025 4:38 AM CDT) Color, ur Yellow Yellow Clarity, ur Clear Clear [facility] A ([place]) Specific gravity, ur 1.016 1.003 - 1.030 [facility] ([place]) pH, urine 5.0 [facility] ([place]) Comment: Interpretive Data U rine pH is affected by diet, medications, systemic acid-base disturbances, and renal tubular function. pH may affect urinary stone formation. For example, urine pH below 6.0 may help reduce the tendency for calcium phosphate stones and pH greater than 6.0 may reduce the tendency for uric acid stone formation. Source: [facility] [employer] Current Interpretive Data was last revised on 2017 Protein, ur ql Negative Negative [facility] ([place]) Glucose, ur ql Negative Negative [facility] ([place]) Ketones, ur Negative Negative [facility] ([place]) Bilirubin, ur Negative Negative [facility] ([place]) Blood, ur Negative Negative [facility] ([place]) Urobilinogen, ur <2.0 <2.0 mg/dL [facility] ([place]) Nitrite, ur Negative Negative [facility] ([place]) Leukocyte esterase, ur Negative Negative [facility] ([place]) UA reflex comment Reflex conditions for microscopic UA and culture not met. JUNIOR MCNAMARA ([place]) Urine 01/21/2025 4:38 AM CDT 01/21/2025 4:43 AM CDT Celeste Velez MD LAB MICROBIOLOGY - GENE RAL ORDERABLES Final Result GRADYKIERA ANDERS ([place]) 1 [facility] [place] [address] * Transfuse RBC (01/21/2025 4:29 AM CDT) Blood Celeste Velez MD BLOOD TRANSFUSION ORDER AVEL Final Result GRADYKIERA MCNAMARA ([place]) [address] [place] [address] [place] [address] * Prepare RBC: 1 Units (01/21/2025 1:23 AM CDT) Units requested 1 Units requested Ready ALVAREZ MCNAMARA ([place]) Blood 01/21/2025 1:23 AM CDT 01/21/2025 1:23 AM CDT Narrative JUNIOR MCNAMARA ([place]) - 01/21/2025 1:24 AM CDT Are special requirements needed? (All products are leukoreduced and CMV- safe)->No Celeste Velez MD BLOOD BANK PRODUCT ORDE RABLES Final Result JUNIOR MCNAMARA ([place]) 1 [facility] [place] [address] * Prepare RBC (01/21/2025 1:16 AM CDT) Unit Number [id number] Product code [id number] JUNIOR MCNAMARA ([place]) Blood Expiration Date JUNIOR MCNAMARA ([place]) Product Blood Type (for scanning) 6200 JUNIOR MCNAMARA ([place]) Product Blood Type APOS JUNIOR MCNAMARA ([place]) Dispense Status DISPENSED JUNIOR MCNAMARA ([place]) us Celeste Velez MD BLOOD BANK PRODUCT ORDE RABLES Final Result JUNIOR HAMMER) [address] [place] [address] [employer] [place] [address] * (ABNORMAL) Hemoglobin and hematocrit (01/21/2025 12:01 AM CDT) Hgb 6.8(L) 13.0 - 17.5 g/dL Hct 21.1(L) 38.9 - 50.3 % JUNIOR MCNAMARA ([place]) Blood 01/21/2025 12:0 1 AM CDT 01/21/2025 12:12 AM CDT us Celeste Velez MD LAB BLOOD ORDERABLES Fi nal Result JUNIOR Lai[place]NA) 1 [facility] [place] [place] [address] * CT Chest Abdomen Pelvis WO Contrast (01/20/2025 10:14 PM CDT) Anatomical Region Laterality Modality Body N/A Computed Tomogra phy 01/20/2025 11:4 6 PM CDT Narrative 01/21/2025 12:05 AM CDT EXAM DESCRIPTION: CT CHEST ABDOMEN PELVIS WO CONTRAST REASON FOR STUDY: Generalized weakness, severe anemia today Generalized weakness, severe anemia. Hx of CAD. Hx of aortic valve replacement, cardiac stents, bladder resection, AAA repair. TECHNIQUE: CT scan of the chest, abdomen, and pelvis performed without intravenous and without oral contrast using helical scanning technique. Reconstructed coronal and sagittal MPR images reviewed. All images stored on PACS. Automated exposure control was used as a dose optimization technique for this examination. COMPARISON: 08/29/2021 FINDINGS: The sensitivity for detection of visceral lesions is diminished without the use of intravenous contrast. CHEST LUNGS: No nodules or masses. No pneumonia. There is rounded atelectasis in the posterior left lower lobe. PLEURA: Small chronic left pleural effusion with associated pleural thickening, unchanged. MEDIASTINUM/JORDAN: No identified masses or abnormal nodes. HEART: Heart size is normal with no pericardial effusion. Postoperative changes aortic valve replacement. Median sternotomy. CORONARY ARTERY CALCIFICATION: Present VASCULATURE CHEST: No thoracic aortic aneurysm. AXILLA: No adenopathy. CHEST WALL: No masses. No subcutaneous air. HARDWARE/LINES/TUBES: None. MUSCULOSKELETAL CHEST: No significant abnormality. ABDOMEN/PELVIS LIVER: Normal size. No identified cystic or solid masses. No cysts. GALLBLADDER: Surgically absent. BILE DUCTS: No intrahepatic or extrahepatic ductal dilatation. SPLEEN: Normal size. No focal lesions. PANCREAS: No identified cystic or solid masses. No significant calcifications. No adjacent inflammation or peripancreatic fluid collections. Pancreatic duct not dilated. ADRENALS: Normal. KIDNEYS/URINARY TRACT: Bilateral renal atrophy. Multiple low-density lesions on both kidneys, likely representing cysts. Bilateral renal vascular calcification. Urinary bladder is unremarkable. GI: No dilated bowel loops. No obvious wall thickening. Normal appendix. Scattered diverticular disease without diverticulitis. PERITONEUM: No ascites or free air. RETROPERITONEUM: No mass or adenopathy. REPRODUCTIVE: No significant abnormality. VASCULATURE ABDOMEN: Atherosclerotic calcification of the abdominal aorta and iliac arteries. 6.2 cm x 5.8 cm juxtarenal abdominal aortic aneurysm has increased in size compared with 08/29/2021 when it measured 6.2 cm x 4.9 cm MUSCULOSKELETAL ABDOMEN PELVIS: Multilevel degenerative changes are present without fracture. No concerning lesions are present. OTHER: Small bilateral inguinal hernias containing only fat. IMPRESSION: Small chronic left pleural effusion with associated pleural thickening, unchanged. Rounded atelectasis posterior left lower lobe. Postoperative changes aortic valve replacement. Median sternotomy. Coronary artery calcification. Surgical absence of the gallbladder. Bilateral renal atrophy. Multiple low-density lesions on both kidneys, likely representing cysts. Diverticulosis. No evidence of diverticulitis. 6.2 cm x 5.8 cm juxtarenal abdominal aortic aneurysm has increased in size compared with 08/29/2021 when it measured 6.2 cm x 4.9 cm. >= 5.5 cm Referral to vascular surgeon per Society for Vascular Surgery Guidelines: J Vasc Surgery 2008 50: s2s49; updated Aug 2017 J Vasc Surgery 67:277 Small bilateral inguinal hernias containing only fat. THIS IS AN ELECTRONICALLY VERIFIED FINAL REPORT 01/21/2025 12:05 AM - Electronically signed by Arnold Garduno M.D. KT: REDD Report ID: [id number] Reading Location: [id number] Procedure Note Arnold Garduno MD - 01/21/2025 EXAM DESCRIPTION: CT CHEST ABDOMEN PELVIS WO CONTRAST REASON FOR STUDY: Generalized weakness, severe anemia today Generalized weakness, severe anemia. Hx of CAD. Hx of aortic valve replacement, cardiac stents, bladder resection, AAA repair. TECHNIQUE: CT scan of the chest, abdomen, and pelvis performed without intravenous and without oral contrast using helical scanning technique. Reconstructed coronal and sagittal MPR images reviewed. All images storedon PACS. Automated exposure control was used as a dose optimizationtechnique for this examination. COMPARISON: 08/29/2021 FINDINGS: The sensitivity for detection of visceral lesions is diminished withoutthe use of intravenous contrast. CHEST LUNGS: No nodules or masses. No pneumonia. There is roundedatelectasis in the posterior left lower lobe. PLEURA: Small chronic left pleural effusion with associated pleural thickening, unchanged. MEDIASTINUM/JORDAN: No identified masses or abnormal nodes. HEART: Heart size is normal with no pericardial effusion.Postoperative changes aortic valve replacement. Median sternotomy. CORONARY ARTERY CALCIFICATION: Present VASCULATURE CHEST: No thoracic aortic aneurysm. AXILLA: No adenopathy. CHEST WALL: No masses. No subcutaneous air. HARDWARE/LINES/TUBES: None. MUSCULOSKELETAL CHEST: No significant abnormality. ABDOMEN/PELVIS LIVER: Normal size. No identified cystic or solid masses. No cysts. GALLBLADDER: Surgically absent. BILE DUCTS: No intrahepatic or extrahepatic ductal dilatation. SPLEEN: Normal size. No focal lesions. PANCREAS: No identified cystic or solid masses. No significant calcifications. No adjacent inflammation or peripancreatic fluidcollections. Pancreatic duct not dilated. ADRENALS: Normal. KIDNEYS/URINARY TRACT: Bilateral renal atrophy. Multiple low-density lesions on both kidneys, likely representing cysts. Bilateral renalvascular calcification. Urinary bladder is unremarkable. GI: No dilated bowel loops. No obvious wall thickening. Normal appendix. Scattered diverticular disease without diverticulitis. PERITONEUM: No ascites or free air. RETROPERITONEUM: No mass or adenopathy. REPRODUCTIVE: No significant abnormality. VASCULATURE ABDOMEN: Atherosclerotic calcification of the abdominalaorta and iliac arteries. 6.2 cm x 5.8 cm juxtarenal abdominal aortic aneurysmhas increased in size compared with 08/29/2021 when it measured 6.2 cm x 4.9cm MUSCULOSKELETAL ABDOMEN PELVIS: Multilevel degenerative changes arepresent without fracture. No concerning lesions are present. OTHER: Small bilateral inguinal hernias containing only fat. IMPRESSION: Small chronic left pleural effusion with associated pleural thickening, unchanged. Rounded atelectasis posterior left lower lobe. Postoperative changes aortic valve replacement. Median sternotomy. Coronary artery calcification. Surgical absence of the gallbladder. Bilateral renal atrophy. Multiple low-density lesions on both kidneys,likely representing cysts. Diverticulosis. No evidence of diverticulitis. 6.2 cm x 5.8 cm juxtarenal abdominal aortic aneurysm has increased insize compared with 08/29/2021 when it measured 6.2 cm x 4.9 cm. >= 5.5 cmReferral to vascular surgeon per Society for Vascular Surgery Guidelines: J Vasc Surgery 2008 50: s2s49; updated Aug 2017 J Vasc Surgery 67:277 Small bilateral inguinal hernias containing only fat. THIS IS AN ELECTRONICALLY VERIFIED FINAL REPORT 01/21/2025 12:05 AM - Electronically signed by Arnold Garduno M.D. KT: REDD Report ID: [id number] Reading Location: [id number] Celeste Velez MD IMG CT PROCEDURES Final Result * ECG 12 lead (01/20/2025 9:11 PM CDT) 01/20/2025 9:11 PM CDT Narrative [facility] - 01/21/2025 2:35 PM CDT Vent Rate: 75 bpm RR Interval: 790 msec VT Interval: 0 msec QRS Duration: 163 msec QT Interval: 480 msec QTC Interval: 510 msec P-R-T [place]: [id number] - -86 - 89 degrees IMPRESSION: ELECTRONIC VENTRICULAR PACEMAKER WITH OCCASIONAL PVCS ABNORMAL RHYTHM ECG PVCS NEW Electronically Signed By: Corina Valentin MD Celeste Velez MD ECG ORDERABLES Final R esult Performing Organization Address City/[facility]/ZIP Co de Phone Number [facility] * ABO / Rh Confirmation Testing (01/20/2025 8:20 PM CDT) ABO/Rh Confirmation AB Positive [facility] Blood 01/20/2025 8:20 PM CDT 01/20/2025 8:23 PM CDT Celeste Velez MD LAB BLOOD ORDERABLES Fi nal Result Performing Organization Address [facility] [[email or web address]] Co de Phone Number [facility] ([place]) 1 [facility] Department of Laboratories [place] [id number] [facility] * (ABNORMAL) Pro B-type natriuretic peptide (01/20/2025 8:20 PM CDT) NT-proBNP 3,356(H) <=450 pg/mL Comment: Interpretive Comments: A. Dyspnea in Acute Care Setting All Ages: < 300 pg/ml, acute heart failure unlikely. < 50 yrs: 300 - 450 pg/ml, further investigation warranted. > 450 pg/ml, acute heart failure likely. 50 - 74 yrs: 300 - 900 pg/ml, further investigation warranted. > 900 pg/ml, acute heart failure likely . > or = 75 yrs: 450 - 1800 pg/ml, further investigation warranted. > 1800 pg/ml, acute heart failure likely. B. Non-acute Setting < 75 yrs < 125 pg/ml, rules out heart failure. > or = 125 pg/ml, further investigation warranted. > or = 75 yrs < 450 pg/ml, rules out heart failure. > or = 450 pg/ml, further investigation warranted. - Knowledge of each individual patient's NT-proBNP range may be more useful than using similar cut-points for every patient. Please note that marked elevations in NT-proBNP levels may be observed in state other than Left Ventricular Congestive Failure, including: acute coronary syndromes, right heart strain/failure (including pulmonary embolism and cor pulmonale), critical illness, renal failure, as well as advanced age. - References: 1. Ilda OCONNOR et.al. Eur Heart J. 2006:27:330-337. 2. Lisandro REED, Sita CORADO. J. AM Kathryn Cardiol: Cardiovasc Imag. 2009;2: 216- 225. Interpretive Data Last Revised Date: 2018. Blood 01/20/2025 8:20 PM CDT 01/20/2025 8:23 PM CDT Celeste Velez MD LAB BLOOD ORDERABLES Fi nal Result Performing Organization Address [facility] [[email or web address]] Co de Phone Number JUNIOR MCNAMARA [place]) [address] [place] [address] [place] [address] * (ABNORMAL) Troponin T high-sensitivity (01/20/2025 7:21 PM CDT) Trop T hs 32(H) <=22 ng/L Comment: Interpretive Data For further hscTnT resources including the diagnostic algorithm and an aid in interpretation, copy and paste this link: [email or web address].testcatalog.org/show/[email or web address] Current Interpretive Data last revised 2020. Blood 01/20/2025 7:21 PM CDT 01/20/2025 8:38 PM CDT us Celeste Velez MD LAB BLOOD ORDERABLES Fi nal Result Performing Organization Address City/[facility]/ZIP Co de Phone Number [facility] ([place]) 1 [facility] [place] [address] * (ABNORMAL) eGFR (01/20/2025 7:21 PM CDT) eGFR 49(L) >=60 mL/min/1. 73 m2 Comment: Interpretive Data Reference Interval Normal >/= 90 mL/min/1.73m2 Mildly decreased* 60 - 89 mL/min/1.73m2 Mildly to moderately decreased 45 - 59 mL/min/1.73m2 Moderately to severely decreased 30 - 44 mL/min/1.73m2 Severely decreased 15 - 29 mL/min/1.73m2 Kidney Failure < 15 mL/min/1.73m2 *Relative to young adult level Estimated glomerular filtration rate is determined by the 2020 CKD-EPI equation recommended by the National Kidney Foundation (A Unifying Approach to GFR Estimation: Recommendations of the NKF-ASK Task Force on Reassessing the Inclusion of Race in Diagnosing Kidney Disease, JASN 2020). The CKD-EPI equation should not be used for patients with unstable renal function and has not been validated in children and those over 70. Current interpretive data was last reviewed 2021. Blood 01/20/2025 7:21 PM CDT 01/20/2025 7:25 PM CDT us Celeste Velez MD LAB BLOOD ORDERABLES Fi nal Result [facility] ([place]) 1 [facility] [place] [address] * (ABNORMAL) Differential, auto (01/20/2025 7:21 PM CDT) Neutrophil abs 3.30 1.50 - 6.50 K/cumm Imm gran abs 0.02 0.00 - 0.10 K/cumm [facility] ([place]) Lymphocyte abs 0.73(L) 0.80 - 3.30 K/cumm [facility] ([place]) Monocyte abs 0.53 0.20 - 0.80 K/cumm [facility] ([place]) Eosinophil abs 0.11 0.00 - 0.50 K/cumm [facility] ([place]) Basophil abs 0.02 0.00 - 0.10 K/cumm [facility] ([place]) Neutrophil pct 70.1 % [facility] ([place]) Comment: Interpretive Data Percent cell count reference ranges are not reported, since discordance with absolute values may lead to misinterpretation of CBC data. Current Interpretive Data was last revised on 2017. Imm gran pct 0.4 % [facility] ([place]) Comment: Interpretive Data Percent cell count reference ranges are not reported, since discordance with absolute values may lead to misinterpretation of CBC data. Current Interpretive Data was last revised on 2017. Lymphocyte pct 15.5 % [facility] ([place]) Comment: Interpretive Data Percent cell count reference ranges are not reported, since discordance with absolute values may lead to misinterpretation of CBC data. Current Interpretive Data was last revised on 2017. Monocyte pct 11.3 % [facility] ([place]) Comment: Interpretive Data Percent cell count reference ranges are not reported, since discordance with absolute values may lead to misinterpretation of CBC data. Current Interpretive Data was last revised on 2017. Eosinophil pct 2.3 % [facility] ([place]) Comment: Interpretive Data Percent cell count reference ranges are not reported, since discordance with absolute values may lead to misinterpretation of CBC data. Current Interpretive Data was last revised on 2017. Basophil pct 0.4 % [facility] ([place]) Comment: Interpretive Data Percent cell count reference ranges are not reported, since discordance with absolute values may lead to misinterpretation of CBC data. Current Interpretive Data was last revised on 2017. Blood 01/20/2025 7:21 PM CDT 01/20/2025 7:25 PM CDT us Celeste Velez MD LAB BLOOD ORDERABLES nal Result JUNIOR MCNAMARA ([place]) 1 [facility] [place] [address] * (ABNORMAL) CBC with auto differential (01/20/2025 7:21 PM CDT) WBC 4.71 3.80 - 9.90 K/cumm Hgb 7.2(L) 13.0 - 17.5 g/dL JUNIOR MCNAMARA ([place]) Hct 22.6(L) 38.9 - 50.3 % [facility] ([place]) Plt 110(L) 150 - 400 K/cumm [facility] ([place]) MPV 9.6 9.1 - 12.3 fL [facility] ([place]) RBC 2.24(L) 4.30 - 5.80 M/cumm [facility] ([place]) MCV 100.9(H) 81.3 - 96.4 fL [facility] ([place]) MCH 32.1 27.1 - 33.3 pg [facility] ([place]) MCHC 31.9(L) 32.3 - 35.7 g/dL [facility] ([place]) RDW CV 15.1(H) 11.1 - 14.9 % [facility] ([place]) RDW SD 55.3(H) 35.7 - 48.1 fL [facility] ([place]) NRBC abs 0.00 0.00 - 0.01 K/cumm [facility] ([place]) Blood 01/20/2025 7:21 PM CDT 01/20/2025 7:25 PM CDT Celeste Velez MD LAB BLOOD ORDERABLES Fi nal Result Performing Organization Address City/[facility]/ZIP Co de Phone Number JUNIOR MCNAMARA ([place]) 1 [facility] [place] [address] * ABO/Rh (01/20/2025 7:21 PM CDT) ABO/Rh AB Positive Blood 01/20/2025 7:21 PM CDT 01/20/2025 7:25 PM CDT Narrative JUNIOR MCNAMARA ([place]) - 01/20/2025 8:09 PM CDT Has the patient had Daratumumab or Isatuximab in the past 6 months?->Unknown Celeste Velez MD LAB BLOOD BANK TEST ORD ERABLES Final Result [facility]UNIOR [facility] ([place]) 1 [facility] [place] [address] * Crossmatch (01/20/2025 7:21 PM CDT) Crossmatch Compatible JUNIOR [facility] ([place]) Unit number for crossmatch [id number] [facility] ([place]) Blood 01/20/2025 7:21 PM CDT 01/20/2025 7:25 PM CDT Celeste Velez MD LAB BLOOD BANK TEST ORD ERABLES Final Result [facility] ([place]) 1 [facility] [place] [address] * Antibody screen (01/20/2025 7:21 PM CDT) Pathologist [facility], indirect, Gel Interpretation Negative ABSC Blood 01/20/2025 7:21 PM CDT 01/20/2025 7:25 PM CDT Narrative [facility] ([place]) - 01/20/2025 8:09 PM CDT Has the patient had Daratumumab or Isatuximab in the past 6 months?->Unknown Celeste Velez MD LAB BLOOD BANK TEST ORD ERABLES Final Result [facility] ([place]) 1 [facility] [place] [address] * Phosphorus (01/20/2025 7:21 PM CDT) Pathologist [facility] Phosphorus, pl 3.1 2.3 - 4.5 mg/dL Blood 01/20/2025 7:21 PM CDT 01/20/2025 7:25 PM CDT Celeste Velez MD LAB BLOOD ORDERABLES Fi nal Result [facility] ([place]) 1 [facility] [place] [address] * Magnesium (01/20/2025 7:21 PM CDT) Magnesium 1.7 1.4 - 2.5 mg/dL Blood 01/20/2025 7:21 PM CDT 01/20/2025 7:25 PM CDT us Celeste Velez MD LAB BLOOD ORDERABLES Fi nal Result [facility] ([place]) 1 [facility] [place] [address] * (ABNORMAL) Comprehensive metabolic panel (01/20/2025 7:21 PM CDT) Sodium 137 135 - 145 mmol/L Potassium, pl 4.1 3.3 - 4.9 mmol/L [facility] ([place]) Chloride 101 97 - 110 mmol/L [facility] ([place]) CO2 23 22 - 32 mmol/L [facility] ([place]) Anion gap 14 2 - 15 mmol/L [facility] ([place]) BUN 26(H) 6 - 25 mg/dL [facility] Creatinine 1.43(H) 0.80 - 1.30 mg/dL [facility] ([place]) Glucose 120 70 - 199 mg/dL [facility] ([place]) Comment: Interpretive Data Fasting glucose >/= 126 mg/dl is diagnostic for diabetes. Fasting is defined as no caloric intake for at least 8 hours. Fasting glucose between 100 mg/dl to 125 mg/dl is diagnostic of prediabetes. In a patient with classic symptoms of hyperglycemia or hyperglycemic crisis, a random glucose >/= 200 mg/dl is diagnostic for diabetes. In the absence of unequivocal hyperglycemia, results should be confirmed by repeat testing. The classification and Diagnosis of Diabetes Diabetes Care 2021; 46: S19-S40. Current interpretive data was last revised 2022. Calcium 9.0 8.5 - 10.3 mg/dL [facility] ([place]) Bilirubin, total 0.5 0.1 - 1.2 mg/dL [facility] ([place]) Protein, pl 6.5 6.5 - 8.5 g/dL [facility] ([place]) Albumin 3.8 3.5 - 5.0 g/dL [facility] ([place]) Alk phos 32(L) 40 - 130 Units/L [facility] ([place]) ALT 10 7 - 55 Units/L [facility] ([place]) AST 21 10 - 50 Units/L [facility] ([place]) Comment: Hemolysis present. Results may be affected. Slightly Hemolyzed Specimen Blood 01/20/2025 7:21 PM CDT 01/20/2025 7:25 PM CDT Celeste Velez MD LAB BLOOD ORDERABLES Fi nal Result [facility]UNIOR [facility]NAM[facility] ([place]) 1 [facility] [address] * BMP - Basic Metabolic Panel (7) (01/05/2025 9:41 AM CDT) Historical Provider LAB BLOOD ORDERABLES Lucia l Result * DEVICE CHECK - REMOTE (01/04/2025 1:06 PM CDT) Anatomical Region Laterality Modality Other Narrative 01/08/2025 10:41 AM CDT Yo [place] BIV ICD. Dx; CHF, SSS. Afib, AV Node Ablation. DOI 10/28/2023-Lynette. Chronic leads 05/25/2015. [place] remote monitoring. Unscheduled remote due to patient [...] Lasix, potassium, amongst others. See scanned report. [place] remote follow-up 04/06/2025. ROV with Dr. Yousif 05/20/2025. Ning Johansen, TRI Jarett Yousif MD [facility] PROC EDURES Final Result * DEVICE CHECK - IN OFFICE (12/30/2024 9:48 AM CDT) Anatomical Region Laterality Modality Other Narrative 01/08/2025 10:39 AM CDT [employer] BIV ICD. Dx; CHF, SSS. Afib, AV Node Ablation. DOI 10/28/2023-Lynette. Chronic leads 05/25/2015. [place] remote monitoring. LV lead is a iTMantronic lead and therefor the device is Not MRI conditional d/t [employer] products. Supervising MD: Dr Whittaker. Left pectoral [...] based on patient's response to today's adjustments. [place] remote f/u 04/06/2025. Ning Johansen RN us Jarett Yousif MD CV CARDIAC SERVICES PROC EDURES Final Result * DEVICE CHECK - REMOTE (11/24/2024 10:05 AM CDT) Anatomical Region Laterality Modality Other Narrative 12/03/2024 8:25 AM CDT Yo [place] BIV ICD. Dx; CHF, SSS. Afib, AV Node Ablation. DOI 10/28/2023-Lynette. Chronic leads 05/25/2015. [place] remote monitoring. LV lead is a [employer] lead and therefore the device is Not MRI conditional d/t Foxtrot products. Dr Elida Beltran-original device implanter in 2014. Routine VVIR [...] mg, Follow up: Office Pacemaker/ICD scheduled 12/30/24 [place] remote 4 months Capo Wade RN Jarett Yousif MD [facility] CARDIAC SERVICES PROC EDURES Final Result from Last 3 Months Insurance [employer] MEDICARE ADVANTAGE MEDICARE FORMERLY [facility], [facility] MEDICARE ADVANTAGE [facility] MEDICARE ADVANTAGE Advance Directives For more information, please contact: [phone] * Full Code (Latest Code Status on File) Date Activated Date Inactivated Comments 01/22/2025 11:51 AM 01/23/2025 7:53 PM * Full Code Date Activated Date Inactivated Comments 01/22/2025 11:47 AM 01/22/2025 11:51 AM * Full Code Date Activated Date Inactivated Comments 01/20/2025 7:14 PM 01/22/2025 11:47 AM Care Teams Director [place] Relationship Specialty Start Date End Date Ruddy Yang MD [address] [place], [place] [id number] PCP - General Internal Medicine 01/02/21
--- OUTSIDE RECORDS SUMMARY | 2025-01-28 12:28 | XMS_ITS | Referral Summary ---
Author Organization [facility] [address] Address [address] [place] [address] Care Team Providers Care [employer] Wellness Director Name Role Phone Ruddy Yang MD Primary Care Provider + [phone] Encounters Date Type Department Care Team Description 01/20/2025 7:02 PM CDT - 01/23/2025 3:47 PM CDT Hospital Encounter [address] [address] Rosemary Kidd DO Petters, Ekanga Sunday, MD Nikolic, Jelena, MD Nations, Matthew Austin, DO Kim, Eileen H., MD Severe anemia [D64.9] (Primary Dx); Gastrointestinal hemorrhage, unspecified gastrointestinal hemorrhage type; Occult GI bleeding; Juxtarenal abdominal aortic aneurysm (AAA) without rupture; Severe anemia Discharge Disposition: Discharge to home or self care 01/22/2025 12:30 PM CDT Anesthesia Event [address] [address] Romulo Agee MD 01/22/2025 12:00 PM CDT - 01/22/2025 12:50 PM CDT Surgery [address] [address] Karey Dong MD COLON CONTROL BLEEDING 01/07/2025 1:00 PM CDT Office Visit [facility] Cardiology [address] [place] [phone] Kary Rayo NP 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 heart failure (HCC) (Primary Dx); 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; Chronic coronary artery disease; Permanent atrial fibrillation (HCC); Primary hypertension; Hypercholesterolemia; S/P TAVR (transcatheter aortic valve replacement) 01/06/2025 Orders Only [facility] Cardiology [address] [place] [address] [place] [phone] Iker Ponce MD 01/04/2025 8:00 AM CDT Ancillary Procedure [facility]iology [address] [place] [address] [place] [phone] ICD (implantable cardioverter-defibrilla tor) in place; Permanent atrial fibrillation (HCC); 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; S/P AV josué ablation; Congestive heart failure, unspecified HF chronicity, unspecified heart failure type (HCC) 01/04/2025 Telephone [facility] Cardiology [address] [place] [address] [place] [phone] Jarett Yousif MD 12/30/2024 Orders Only [facility]iology [address] [place] [address] [place] [phone] Jarett Yousif MD ICD (implantable cardioverter-defibrilla tor) in place (Primary Dx); Permanent atrial fibrillation (HCC); 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; S/P AV josué ablation; Congestive heart failure, unspecified HF chronicity, unspecified heart failure type (HCC) 12/30/2024 10:00 AM CDT Ancillary Procedure [facility] [address] [place] [address] [place] [phone] Longstanding persistent atrial fibrillation (HCC); SSS (sick sinus syndrome) (HCC); Congestive heart failure, unspecified HF chronicity, unspecified heart failure type (HCC); 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; History of atrioventricular josué ablation 12/29/2024 Telephone [facility]iology [address] [place] [address] [place] [phone] Jarett Yousif MD 12/04/2024 11:30 AM CDT Office Visit [facility] [address] [place] [phone] Letitia Kumar NP 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, unspecified vessel or lesion type (Primary Dx); 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; Permanent atrial fibrillation (HCC); Chronic anticoagulation 11/24/2024 8:45 AM CDT Ancillary Procedure [facility] [address] [facility] [address] [place] [phone] 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 (Primary Dx); Cardiomyopathy, unspecified type (HCC); SSS (sick sinus syndrome) (HCC); Permanent atrial fibrillation (HCC); Congestive heart failure, unspecified HF chronicity, unspecified heart failure type (HCC) 11/09/2024 8:45 AM CDT Office Visit [facility] [address] [place] [phone] Jarett Yousif MD Biventricular ICD (implantable cardioverter-defibrilla [...] mouth 3 (three) times a day 025 Discontinued(Th erapy completed) traZODone (DESYREL) 50 mg tabletIndicatio [...] tablet/capsu le (20 mEq total) by mouth knotting machine operator before breakfast 09/26/19 24 025 Discontinued(St op Taking at Discharge) Active Problems Problem Noted Date Diagnosed Date Occult GI bleeding 01/21/2025 GIB (gastrointestinal bleeding) 01/20/2025 Severe anemia 01/20/2025 Elective replacement of impl antable cardioverter-defibrillator (ICD) battery required 10/01/2023 Sensorineural hearing loss (SNHL) of both ears 1 09/02/2022 Assessment & Plan (07/03/2023 10:35 AM WOOL HAT SANDING MACHINE OPERATOR): Hearing test Flonase 2 sprays [...] 07/03/2023 Assessment & Plan (07/03/2023 10:35 AM WOOL HAT SANDING MACHINE OPERATOR): Hearing test Flonase 2 sprays [...] (07/11/2022): Added automatically from request for surgery [id number] Pain associated with wound 06/28/2022 S/P TAVR (transcatheter aortic valve replacement ) 05/16/2021 Hx of CABG 02/07/2021 Permanent atrial fibrillation 02/07/2021 ICD (implantable cardioverter-defibrillator) in place 02/07/2021 History of coronary artery stent placement 02/07 Biventricular ICD (implantab le cardioverter-defibrillator) in place 01/04/2021 Overview (10/28/2023): SideTour BIV ICD. Dx; CHF, SSS. Afib, AV Node Ablation. DOI 10/28/2023- Lynette. Chronic leads 05/25/2015. [place] remote monitoring. LV lead is a Medtronic lead and therefore the device is Not MRI conditional d/t [employer] products. Dr Elida Beltran-original device implanter in [...] drink = 0.6 oz pur e alcohol) [facility] Utilities Answer Date Recorded In the past 12 months has th e electric, gas, oil, or water [employer] threatened to shut off services in your [...] often do you attend chur ch or yazidism services? Never 01/21/2025 Do you belong to any clubs o r organizations such as advent groups, unions, fraternal or athletic groups, or [...] any time in the past 12 m [facility], were you homeless or living in a senior living (including now)? No 01/21/2025 Personal Safety Answer Date Recorded Have you ever been in or are you currently in a harmful physical or emotional relationship or is someone making you feel afraid or unsafe? Denies 01/20/2025 Sex and Gender Information Value Date Recorded Sex Assigned at Not on file Legal Sex Male 1:59 AM WOOL HAT SANDING MACHINE OPERATOR Gender Identity Not on file [...] 01/20/2025 7:34 PM CDT Plan of Treatment Not on file Medical Devices Implanted Type Area Nurse Reviewer Device Identifier Shelf Expiration Date Model / Serial / Lot Icd ICD Heart Pacemaker Pacemaker Heart Description:PACEMAKER/ICD Stent Implanted:Qty: 2 Stent Heart [employer] Defib Cardiac [id number] [place] Hf Df4 Is-4 Is-1 Cnctr [id number] - [id number] - [id number] Implanted:Qty: 1 on 10/28/2023 by Eric Ojeda MD at [facility] [employer] 08/25/2025 [id number] / [id number] / Procedures Procedure Name Priority Date/Time Associated [...] BLOOD ORDERABLES Final Resu lt [facility] ([place]) 1 [facility] Department [place] [address] * (ABNORMAL) eGFR (01/23/2025 4:04 AM CDT) [...] LAB BLOOD ORDERABLES Fi nal Result [facility] 1 [facility] Department [place] [address] * (ABNORMAL) Differential, auto (01/23/2025 4:04 AM CDT) Neutrophil abs 3.87 1.50 - 6.50 K/cumm Imm gran abs 0.02 0.00 - 0.10 K/cumm [facility] ([place]) Lymphocyte abs 0.78(L) 0.80 - 3.30 K/cumm [facility] ([place]) Monocyte abs 0.75 0.20 - 0.80 K/cumm [...] Imm gran pct 0.4 % [facility] ([place]) Comment: Interpretive Data Percent cell count reference [...] revised on 2017. Basophil pct 0.2 % [facility] ([place]) Comment: Interpretive Data Percent cell count reference ranges are not reported, since discordance with absolute values may lead to misinterpretation of CBC data. Current Interpretive Data was last revised on 2017. Blood 01/23/2025 4:04 AM CDT 01/23/2025 4:59 AM CDT us Celeste Velez MD LAB BLOOD ORDERABLES Fi nal Result [facility] ([place]) 1 [facility] Department [place] [address] * (ABNORMAL) CBC with auto differential (01/23/2025 4:04 AM CDT) WBC 5.55 3.80 - 9.90 K/cumm Hgb 7.2(L) 13.0 - 17.5 g/dL [facility]) Hct 22.7(L) 38.9 - 50.3 % [facility]) Plt 97(L) 150 - 400 K/cumm [facility]) MPV 10.1 9.1 - 12.3 fL [facility] [place] RBC 2.35(L) 4.30 - 5.80 M/cumm [facility] [place] MCV 96.6(H) 81.3 - 96.4 fL [facility] [place] MCH 30.6 27.1 - 33.3 pg [facility] [place] MCHC 31.7(L) 32.3 - 35.7 g/dL [facility] [place] RDW CV 17.5(H) 11.1 - 14.9 % [facility] [place] RDW SD 62.5(H) 35.7 - 48.1 fL [facility] ([place]) NRBC abs 0.00 0.00 - 0.01 K/cumm [facility] ([place]) Blood 01/23/2025 4:04 AM CDT 01/23/2025 4:59 AM CDT Celeste Velez MD LAB BLOOD ORDERABLES Fi nal Result Performing Organization Address City/[facility]/ZIP Co de Phone Number [facility] ([place]) 1 [facility] [place] [address] * Magnesium (01/23/2025 4:04 AM CDT) Pathologist [facility] Magnesium 1.7 1.4 - 2.5 mg/dL Blood 01/23/2025 4:04 AM CDT 01/23/2025 4:59 AM CDT Celeste Velez MD LAB BLOOD ORDERABLES Fi nal Result Performing Organization Address City/[facility]/ZIP Co de Phone Number [facility] ([place]) 1 [facility] [place] [address] * (ABNORMAL) Comprehensive metabolic panel (01/23/2025 4:04 AM CDT) Sodium 139 135 - 145 mmol/L Potassium, pl 3.4 3.3 - 4.9 mmol/L [facility] ([place]) Chloride 106 97 - 110 mmol/L [facility]) CO2 21(L) 22 - 32 mmol/L [facility] [place] Anion gap 12 2 - 15 mmol/L [facility] ([place] BUN 16 6 - 25 [...] Fi nal Result [facility] 1 [facility] Department [place] [address] * EGD (01/22/2025 11:51 AM CDT) Anatomical Region Laterality Modality Other Narrative Procedure Note Karey Dong MD - 01/22/2025 11:51 AM CDT [facility] Patient Name: Elida Rodas Procedure Date: 01/22/2025 11:51 AM Date of : 1940 Admit Type: Inpatient Age: 84 Gender: Male Attending MD: Karey Dong M.D. Room: [facility] 2 Note Status: Finalized [...] procedure were verified by the physician, the behavioral consultant and the ag equipment field service technician in the endoscopy suite. Mental Status [...] passed under direct vision. The Endoscope [id number] was introduced through the mouth, and advanced [...] 11:51 AM Procedure Code(s): --- Professional --- 85952, Esophagogastroduodenoscopy, flexible, transoral; with biopsy, single or multiple --- Technical --- 21252, Esophagogastroduodenoscopy, flexible, transoral; with biopsy, single or multiple Diagnosis Code(s): --- Professional --- K21.00, Gastro-esophageal reflux disease with esophagitis, without bleeding D50.0, Iron deficiency anemia secondary to blood loss (chronic) K92.1, Melena (includes Hematochezia) --- Technical --- K21.00, Gastro-esophageal reflux disease with esophagitis, without bleeding D50.0, Iron deficiency anemia secondary to blood loss (chronic) K92.1, Melena (includes Hematochezia) CPT copyright 2020 [employer]. All rights reserved. The codes documented in this report are preliminary and upon furniture mover driver reviewmay be revised to meet current compliance requirements. Recognized by the [employer] for promoting quality [...] Male Attending MD: Karey Dong M.D. Room: [facility] 2 Note Status: Finalized [...] coagulation (APC). Clip (MRconditional) was placed. Clip public relations senior associate: Abaxia. - One 8 mm polyp in the [...] procedure were verified by the physician, the behavioral consultant and the ag equipment field service technician in the endoscopy suite. Mental Status [...] under direct vision. The Pediatric Colonoscope [id number] was introducedthrough the anus and advanced to [...] clip was successfully placed (MR conditional). Clip public relations senior associate: Abaxia. There was no bleeding at the end [...] 11:49 AM Procedure Code(s): --- Professional --- 32697, Colonoscopy, flexible; with control of bleeding, any method --- Technical --- 85699, Colonoscopy, flexible; with control of bleeding, any [...] perforation orabscess without bleeding CPT copyright 2020 [employer]. All rights reserved. The codes documented in this report are preliminary and upon furniture mover driver reviewmay be revised to meet current compliance requirements. Recognized by the [employer] for promoting quality in endoscopy Karey Dong MD ENDOSCOPY PROCEDURES Final Resul t * Surgical pathology (01/22/2025 9:52 AM CDT) Tissue ([place], Biopsy) 01/22/2025 12:48 PM CDT Narrative [facility] - 01/26/2025 2:52 PM CDT EPIC results best viewed via link to PDF [facility] Department of Pathology [address] [place] [address] Note to Patients: This report may contain [...] Final Report Patient Name: ELIDA RODAS Address: [id number] [place] [id number] Gender: M : 1940 (Age: 84) Service: Medical Location: [facility] Hospital #: [id number] Patient Type: [facility] Taken: 01/22/2025 Received: 01/25/2025 Accessioned: 01/25/2025 Reported: [...] determined by the Surgical Pathology Department at [facility] as part of an ongoing aircraft quality control inspector program and in compliance with federally mandated [...] characteristics determined by the Surgical Pathology Department [facility]. It has not been cleared or approved by the U. S. Food and Drug Administration. Note for decalcified specimens: This assay has not been validated on decalcified tissues. Results should be interpreted with caution given the possibility of false negativity on decalcified specimens us Karey Dong MD LAB PATHOLOGY ORDERABLES Final R esult [facility] [address] [place] [address] * (ABNORMAL) eGFR (01/22/2025 4:18 AM [...] BLOOD ORDERABLES Fi nal Result [facility]) 1 [facility] Department [place] [address] * Differential, auto (01/22/2025 4:18 AM CDT) Neutrophil abs 3.10 1.50 - 6.50 K/cumm Imm gran abs 0.00 0.00 - 0.10 K/cumm [facility] ([place]) Lymphocyte abs 0.81 0.80 - 3.30 K/cumm [facility] ([place]) Monocyte abs 0.63 0.20 - 0.80 K/cumm [facility] ([place]) Eosinophil abs 0.15 0.00 - 0.50 K/cumm [facility] ([place]) Basophil abs 0.02 0.00 - 0.10 K/cumm [facility] ([place]) Neutrophil pct 65.8 % [facility] ([place] Comment: Interpretive Data Percent cell count reference ranges are not reported, since discordance with absolute values may lead to misinterpretation of CBC data. Current Interpretive Data was last revised on 2017. Imm gran pct 0.0 % [facility] ([place]) Comment: Interpretive Data Percent cell count reference ranges are not reported, since discordance with absolute values may lead to misinterpretation of CBC data. Current Interpretive Data was last revised on 2017. Lymphocyte pct 17.2 % [facility] ([place] Comment: Interpretive Data Percent cell count reference ranges are not reported, since discordance with absolute values may lead to misinterpretation of CBC data. Current Interpretive Data was last revised on 2017. Monocyte pct 13.4 % [facility] ([place]) Comment: Interpretive Data Percent cell count reference ranges are not reported, since discordance with absolute values may lead to misinterpretation of CBC data. Current Interpretive Data was last revised on 2017. Eosinophil pct 3.2 % [facility] ([place] Comment: Interpretive Data Percent cell count reference ranges are not reported, since discordance with absolute values may lead to misinterpretation of CBC data. Current Interpretive Data was last revised on 2017. Basophil pct 0.4 % [facility] ([place] Comment: Interpretive Data Percent cell count reference ranges are not reported, since discordance with absolute values may lead to misinterpretation of CBC data. Current Interpretive Data was last revised on 2017. Blood 01/22/2025 4:18 AM CDT 01/22/2025 5:30 AM CDT us Celeste Velez MD LAB BLOOD ORDERABLES Fi nal Result [facility] ([place]) 1 [facility] Department [place] [address] * (ABNORMAL) CBC with auto differential (01/22/2025 4:18 AM CDT) WBC 4.71 3.80 - 9.90 K/cumm Hgb 7.8(L) 13.0 - 17.5 g/dL [facility] ([place]) Hct 24.3(L) 38.9 - 50.3 % [facility]) Plt 104(L) 150 - 400 K/cumm [facility] ([place]) MPV 9.9 9.1 - 12.3 fL [facility] RBC 2.54(L) 4.30 - 5.80 M/cumm [facility] ([place]) MCV 95.7 81.3 - 96.4 fL [facility]) MCH 30.7 27.1 - 33.3 pg [facility] ([place]) MCHC 32.1(L) 32.3 - 35.7 g/dL [facility] ([place]) RDW CV 18.1(H) 11.1 - 14.9 % [facility] [place]) RDW SD 63.9(H) 35.7 - 48.1 fL [facility] ([place]) NRBC abs 0.00 0.00 - 0.01 K/cumm [facility] ([place]) Blood 01/22/2025 4:18 AM CDT 01/22/2025 5:30 AM CDT us Celeste Velez MD LAB BLOOD ORDERABLES Fi nal Result [facility] ([place]) 1 [facility] [place] [address] * Magnesium (01/22/2025 4:18 AM CDT) Magnesium 1.7 1.4 - 2.5 mg/dL Blood 01/22/2025 4:18 AM CDT 01/22/2025 5:29 AM CDT us Celeste Velez MD LAB BLOOD ORDERABLES Fi nal Result Performing Organization Address City/[facility] Co de Phone Number [facility] ([place]) 1 [facility] [place] [address] * (ABNORMAL) Comprehensive metabolic panel (01/22/2025 4:18 AM CDT) Sodium 138 135 - 145 mmol/L Potassium, [...] Bilirubin, total 1.0 0.1 - 1.2 mg/dL [facility] Protein, pl 6.1(L) 6.5 - 8.5 g/dL [facility] ([place]) Albumin 3.6 3.5 - 5.0 g/dL [facility] Alk phos 26(L) 40 - 130 Units/L [facility] ALT 9 7 - 55 Units/L [facility]) AST 17 10 - 50 Units/L [facility] Blood 01/22/2025 4:18 AM CDT 01/22/2025 5:29 AM CDT Celeste Velez MD LAB BLOOD ORDERABLES Fi nal Result Performing Organization Address [facility] Co de Phone Number [facility] 1 [facility] [place] [address] * (ABNORMAL) Hemoglobin and hematocrit (01/21/2025 12:44 PM CDT) Hgb 9.2(L) 13.0 - 17.5 g/dL Hct 28.3(L) 38.9 - 50.3 % [facility] ([place]) Blood 01/21/2025 12:4 4 PM CDT 01/21/2025 12:48 PM CDT Celeste Velez MD LAB BLOOD ORDERABLES Fi nal Result [facility] ([place]) 1 [facility] [place] [address] * (ABNORMAL) Protime-INR (01/21/2025 12:44 PM CDT) PT 17.8(H) 9.7 - 13.0 sec [facility] ([place]) INR 1.63(H) 0.90 - 1.20 [facility] ([place]) Comment: Interpretive data Oral anticoagulant therapeutic ranges: Venous thromboembolism prophylaxis or treatment: 2.0-3.0 CARDIOLOGY Standard range: 2.0-3.0 High-intensity range: 2.5-3.5 Refer to indication-specific guidelines for appropriate target ranges for prosthetic heart valve replacement. Current interpretive data was last revised on 2019. Blood 01/21/2025 12:4 4 PM CDT 01/21/2025 12:48 PM CDT us Kailyn FAIRCHILD LAB BLOOD ORDERABLES Fin al Result [facility] ([place] 1 [facility] [place] [address] * (ABNORMAL) eGFR (01/21/2025 5:39 AM CDT) [...] Fi nal Result [facility] ([place] 1 [facility] Department [place] [address] * Differential, auto (01/21/2025 5:39 AM CDT) Neutrophil abs 2.78 1.50 - 6.50 K/cumm Imm gran abs 0.01 0.00 - 0.10 K/cumm [facility] ([place]) Lymphocyte abs 1.04 0.80 - 3.30 K/cumm [facility] ([place]) Monocyte abs 0.60 0.20 - 0.80 K/cumm [facility] ([place]) Eosinophil abs 0.12 0.00 - 0.50 K/cumm [facility] ([place]) Basophil abs 0.01 0.00 - 0.10 K/cumm [facility] ([place]) Neutrophil pct 61.0 % [facility] ([place] Comment: Interpretive Data Percent cell count reference ranges are not reported, since discordance with absolute values may lead to misinterpretation of CBC data. Current Interpretive Data was last revised on 2017. Imm gran pct 0.2 % [facility] ([place]) Comment: Interpretive Data Percent cell count reference ranges are not reported, since discordance with absolute values may lead to misinterpretation of CBC data. Current Interpretive Data was last revised on 2017. Lymphocyte pct 22.8 % [facility] ([place]) Comment: Interpretive Data Percent cell count reference ranges are not reported, since discordance with absolute values may lead to misinterpretation of CBC data. Current Interpretive Data was last revised on 2017. Monocyte pct 13.2 % [facility] ([place]) Comment: Interpretive Data Percent cell count reference ranges are not reported, since discordance with absolute values may lead to misinterpretation of CBC data. Current Interpretive Data was last revised on 2017. Eosinophil pct 2.6 % [facility] ([place] Comment: Interpretive Data Percent cell count reference ranges are not reported, since discordance with absolute values may lead to misinterpretation of CBC data. Current Interpretive Data was last revised on 2017. Basophil pct 0.2 % [facility] ([place]) Comment: Interpretive Data Percent cell count reference ranges are not reported, since discordance with absolute values may lead to misinterpretation of CBC data. Current Interpretive Data was last revised on 2017. Blood 01/21/2025 5:39 AM CDT 01/21/2025 5:52 AM CDT Celeste Velez MD LAB BLOOD ORDERABLES Fi nal Result [facility] ([place]) 1 [facility] [place] [address] * Iron profile w/ IBC (01/21/2025 5:39 AM CDT) Iron 98 50 - 150 mcg/dL TIBC 285 250 - 400 mcg/dL [facility] ([place]) Transferrin saturation 34 20 - 50 % [facility] ([place]) Blood 01/21/2025 5:39 AM CDT 01/21/2025 5:52 AM CDT Celeste Velez MD LAB BLOOD ORDERABLES Fi nal Result Performing Organization Address City/[facility]/ZIP Co de Phone Number [facility] ([place]) 1 [facility] [place] [address] * (ABNORMAL) CBC with auto differential (01/21/2025 5:39 AM CDT) WBC 4.56 3.80 - 9.90 K/cumm Hgb 8.1(L) 13.0 - 17.5 g/dL [facility] ([place]) Hct 25.3(L) 38.9 - 50.3 % [facility] ([place]) Plt 105(L) 150 - 400 K/cumm [facility] ([place]) MPV 9.9 9.1 - 12.3 fL [facility] ([place]) RBC 2.59(L) 4.30 - 5.80 M/cumm [facility] ([place]) MCV 97.7(H) 81.3 - 96.4 fL [facility] ([place]) MCH 31.3 27.1 - 33.3 pg [facility]) MCHC 32.0(L) 32.3 - 35.7 g/dL [facility] ([place]) RDW CV 17.4(H) 11.1 - 14.9 % [facility] ([place]) RDW SD 62.3(H) 35.7 - 48.1 fL [facility] ([place]) NRBC abs 0.00 0.00 - 0.01 K/cumm [facility] ([place]) Blood 01/21/2025 5:39 AM CDT 01/21/2025 5:52 AM CDT Celeste Velez MD LAB BLOOD ORDERABLES Fi nal Result Performing Organization Address City/[facility]/ZIP Co de Phone Number [facility] ([place]) 1 [facility] [facility] [place] [address] * (ABNORMAL) Hemoglobin and hematocrit (01/21/2025 5:39 AM CDT) Hgb 8.1(L) 13.0 - 17.5 g/dL Hct 25.1(L) 38.9 - 50.3 % [facility] ([place]) Blood 01/21/2025 5:39 AM CDT 01/21/2025 5:52 AM CDT Celeste Velez MD LAB BLOOD ORDERABLES Fi nal Result Performing Organization Address City/[facility]/ZIP Co de Phone Number JUNIOR [facility] ([place]) 1 [facility] [place] [address] * Magnesium (01/21/2025 5:39 AM CDT) Magnesium 1.8 1.4 - 2.5 mg/dL Blood 01/21/2025 5:39 AM CDT 01/21/2025 5:52 AM CDT Celeste Velez MD LAB BLOOD ORDERABLES Fi nal Result Performing Organization Address City/[facility] Co de Phone Number JUNIOR MCNAMARA ([place]) 1 [facility] [employer] [place] [address] * Lactate dehydrogenase (LD) (01/21/2025 5:39 AM CDT) Lactate dehydrogenase (LDH) 224 100 - 250 Units/L Blood 01/21/2025 5:39 AM CDT 01/21/2025 5:52 AM CDT Celeste Velez MD LAB BLOOD ORDERABLES Fi nal Result [facility] ([place]) 1 [place] [address] * Haptoglobin (01/21/2025 5:39 AM CDT) Haptoglobin 68 30 - 200 mg/dL Comment:Testing performed by : [facility], [address] [place] [address], [address] Blood 01/21/2025 5:39 AM CDT 01/21/2025 9:08 AM CDT Celeste Velez MD LAB BLOOD ORDERABLES Fi nal Result Performing Organization Address City/[facility]/ZIP Co de Phone Number JUNIOR MCNAM[facility] ([place]) 1 [facility] [employer] [place] [address] * Folate (01/21/2025 5:39 AM CDT) Folic acid >20.0 >=5.0 ng/mL Comment:Slightly Hemolyzed S pecimen. Results may be affected. Blood 01/21/2025 5:39 AM CDT 01/21/2025 5:52 AM CDT Celeste Velez MD LAB BLOOD ORDERABLES Fi nal Result [facility] ([place]) 1 [facility] [place] [address] * Ferritin (01/21/2025 5:39 AM CDT) Pathologist [facility] Ferritin 61 30 - 400 ng/mL Blood 01/21/2025 5:39 AM CDT 01/21/2025 5:52 AM CDT Celeste Velez MD LAB BLOOD ORDERABLES Fi nal Result Performing Organization Address City/[facility]/ZIP Co de Phone Number [facility]) 1 [facility] [place] [address] * Vitamin B12 (01/21/2025 5:39 AM CDT) Pathologist [facility] Vitamin B12 688 230 - 1,250 pg/mL Blood 01/21/2025 5:39 AM CDT 01/21/2025 5:52 AM CDT Celeste Velez MD LAB BLOOD ORDERABLES Fi nal Result Performing Organization Address City/[facility] Co de Phone Number [facility] ([place]) 1 [place] [address] * (ABNORMAL) Comprehensive metabolic panel (01/21/2025 5:39 AM CDT) [facility] Sodium 140 135 - 145 mmol/L Potassium, pl 4.1 3.3 - 4.9 mmol/L [facility] ([place]) Chloride 104 97 - 110 mmol/L [facility] ([place]) CO2 23 22 - 32 mmol/L [facility] ([place]) Anion gap 13 2 - 15 mmol/L [facility] ([place]) BUN 25 6 - 25 mg/dL [facility] ([place]) Creatinine 1.49(H) 0.80 - 1.30 mg/dL [facility] ([place]) Comment:Icteric sample, test results may be affected. Glucose 103 70 - 199 mg/dL [facility] ([place]) Comment: Interpretive Data Fasting glucose [...] 2022. Calcium 9.0 8.5 - 10.3 mg/dL [facility] ([place]) Bilirubin, total 1.2 0.1 - [...] MD LAB BLOOD ORDERABLES Fi nal Result [facility] ([place]) 1 [facility] Department [place] [address] * Urinalysis reflex to microscopic and culture Urine (01/21/2025 4:38 AM CDT) Color, ur Yellow Yellow Clarity, ur Clear Clear [facility] ([place]) Specific gravity, ur 1.016 1.003 - 1.030 [facility] ([place]) pH, urine 5.0 [facility] ([place]) Comment: Interpretive Data U rine pH is affected by diet, medications, systemic acid-base disturbances, and renal tubular function. pH may affect urinary stone formation. For example, urine pH below 6.0 may help reduce the tendency for calcium phosphate stones and pH greater than 6.0 may reduce the tendency for uric acid stone formation. Source: [facility] [employer] Current Interpretive Data was last revised on 2017 Protein, ur ql Negative Negative [facility] ([place]) Glucose, ur ql Negative Negative [facility] ([place]) Ketones, ur Negative Negative [facility] ([place]) Bilirubin, ur Negative Negative [facility] ([place]) Blood, ur Negative Negative [facility] ([place]) Urobilinogen, ur <2.0 <2.0 mg/dL [facility] ([place]) Nitrite, ur Negative Negative [facility] ([place]) Leukocyte esterase, ur Negative Negative [facility] ([place]) UA reflex comment Reflex conditions for microscopic UA and culture not met. [facility] ([place]) Urine 01/21/2025 4:38 AM CDT 01/21/2025 4:43 AM CDT Celeste Velez MD LAB MICROBIOLOGY - GENE RAL ORDERABLES Final Result Performing Organization Address City/[facility]/ZIP Co de Phone Number [facility] ([place]) [address] [place] [address] of [employer] [place] [address] * Transfuse RBC (01/21/2025 4:29 AM CDT) Blood Celeste Velez MD BLOOD TRANSFUSION ORDER AVEL Final Result [facility] ([place]) 1 [facility] [employer] [place] [address] * Prepare RBC: 1 Units (01/21/2025 1:23 AM CDT) Units requested 1 Units requested Ready [facility] ([place]) Blood 01/21/2025 1:23 AM CDT 01/21/2025 1:23 AM CDT Narrative [facility] ([place]) - 01/21/2025 1:24 AM CDT Are special requirements needed? (All products are leukoreduced and CMV- safe)->No Celeste Velez MD BLOOD BANK PRODUCT ORDE RABLES Final Result [facility] ([place]) 1 [facility] [place] [address] * Prepare RBC (01/21/2025 1:16 AM CDT) Unit Number [id number] Product code [id number] [facility] ([place]) Blood Expiration Date [facility] ([place]) Product Blood Type (for scanning) 6200 [facility] ([place]) Product Blood Type APOS [facility] ([place]) Dispense Status DISPENSED [facility] ([place]) us Celeste Velez MD BLOOD BANK PRODUCT ORDE RABLES Final Result Performing Organization Address [facility] Co de Phone Number JUNIOR MCNAMARA ([place]) 1 [facility] [place] [address] * (ABNORMAL) Hemoglobin and hematocrit (01/21/2025 12:01 AM CDT) Hgb 6.8(L) 13.0 - 17.5 g/dL Hct 21.1(L) 38.9 - 50.3 % [facility] ([place]) Blood 01/21/2025 12:0 1 AM CDT 01/21/2025 12:12 AM CDT us Celeste Velez MD LAB BLOOD ORDERABLES Fi nal Result Performing Organization Address City/[facility]/ZIP Co de Phone Number JUNIOR MCNAMARA ([place]) 1 [facility] [employer] [place] [address] * CT Chest Abdomen Pelvis WO Contrast [...] Arnold Garduno M.D. KT: REDD Report ID: [id number] Reading Location: [place] [address] Procedure Note Arnold Garduno MD - 01/21/2025 [...] Electronically signed by Arnold Garduno M.D. KT: KT Report ID: [id number] Reading Location: [place] [address] Celeste Velez MD IMG CT PROCEDURES Final Result * ECG 12 lead (01/20/2025 9:11 PM CDT) 01/20/2025 9:11 PM CDT Narrative [facility] - 01/21/2025 2:35 PM CDT Vent Rate: 75 bpm RR Interval: 790 msec IN Interval: 0 msec QRS Duration: 163 msec QT Interval: 480 msec QTC Interval: 510 msec P-R-T [place]: [address] - -86 - 89 degrees IMPRESSION: ELECTRONIC VENTRICULAR PACEMAKER WITH OCCASIONAL PVCS ABNORMAL RHYTHM ECG PVCS NEW Electronically Signed By: Corina Valentin MD us Celeste Velez MD ECG ORDERABLES Final R esult [facility] * ABO / Rh Confirmation Testing (01/20/2025 8:20 PM CDT) ABO/Rh Confirmation AB Positive [facility] Blood 01/20/2025 8:20 PM CDT 01/20/2025 8:23 PM CDT us Celeste Velez MD LAB BLOOD ORDERABLES Fi nal Result [facility] 1 [facility] Department of Laboratories [place], [place] [id number] [facility] * (ABNORMAL) Pro B-type natriuretic peptide [...] et.al. Eur Heart J. 2006:27:330-337. 2. Lisandro RW, Sita CORADO. J. AM Kathryn Cardiol: Cardiovasc Imag. 2009;2: 216- 225. Interpretive Data Last Revised Date: 2018. Blood 01/20/2025 8:20 PM CDT 01/20/2025 8:23 PM CDT Celeste Velez MD LAB BLOOD ORDERABLES Fi nal Result Performing Organization Address [facility] Co de Phone Number [facility] ([place]) 1 [facility] [place] [address] * (ABNORMAL) Troponin T high-sensitivity (01/20/2025 7:21 PM CDT) Trop T hs 32(H) <=22 ng/L Comment: Interpretive Data For further hscTnT resources including the diagnostic algorithm and an aid in interpretation, copy and paste this link: https://nrl.testcatalog.org/show/hsTrop Current Interpretive Data last revised 2020. Blood 01/20/2025 7:21 PM CDT 01/20/2025 8:38 PM CDT Celeste Velez MD LAB BLOOD ORDERABLES Fi nal Result Performing Organization Address [facility]/ZIP Co de Phone Number [facility] ([place]) 1 [facility] [place] [address] * (ABNORMAL) eGFR (01/20/2025 7:21 PM CDT) [...] us Celeste Velez MD LAB BLOOD ORDERABLES [facility] Result [facility]) 1 [facility] Department [place] [address] * (ABNORMAL) Differential, auto (01/20/2025 7:21 PM [...] revised on 2017. Monocyte pct 11.3 % [facility] ([place]) Comment: Interpretive Data Percent cell count reference ranges are not reported, since discordance with absolute values may lead to misinterpretation of CBC data. Current Interpretive Data was last revised on 2017. Eosinophil pct 2.3 % [facility] ([place]) Comment: Interpretive Data Percent cell count reference ranges are not reported, since discordance with absolute values may lead to misinterpretation of CBC data. Current Interpretive Data was last revised on 2017. Basophil pct 0.4 % [facility] ([place]) Comment: Interpretive Data Percent cell count reference ranges are not reported, since discordance with absolute values may lead to misinterpretation of CBC data. Current Interpretive Data was last revised on 2017. Blood 01/20/2025 7:21 PM CDT 01/20/2025 7:25 PM CDT us Celeste Velez MD LAB BLOOD ORDERABLES Fi nal Result [facility] ([place]) 1 [facility] [place] [address] * (ABNORMAL) CBC with auto differential (01/20/2025 7:21 PM CDT) WBC 4.71 3.80 - 9.90 K/cumm Hgb 7.2(L) 13.0 - 17.5 g/dL [facility] ([place]) Hct 22.6(L) 38.9 - 50.3 % [...] Fi nal Result [facility] ([place]) 1 [facility] Department [place] [address] * ABO/Rh (01/20/2025 7:21 PM CDT) ABO/Rh AB Positive Blood 01/20/2025 7:21 PM CDT 01/20/2025 7:25 PM CDT Narrative [facility] ([place]) - 01/20/2025 8:09 PM CDT Has the patient had Daratumumab or Isatuximab in the past 6 months?->Unknown Celeste Velez MD LAB BLOOD BANK TEST ORD ERABLES Final Result [facility] ([place]) 1 [facility] [place] [address] * Crossmatch (01/20/2025 7:21 PM CDT) Crossmatch Compatible JUNIOR Nancy ([place]) Unit number for crossmatch [id number] [facility] ([place]) Blood 01/20/2025 7:21 PM CDT 01/20/2025 7:25 PM CDT us Celeste Velez MD LAB BLOOD BANK TEST ORD ERABLES Final Result Performing Organization Address City/[facility]/ZIP Co de Phone Number [facility] ([place]) 1 [facility] [place] [address] * Antibody screen (01/20/2025 7:21 PM CDT) Kylee, indirect, Gel Interpretation Negative ABSC Blood 01/20/2025 7:21 PM CDT 01/20/2025 7:25 PM CDT Narrative [facility] ([place] - 01/20/2025 8:09 PM CDT Has the patient had Daratumumab or Isatuximab in the past 6 months?->Unknown us Celeste Velez MD LAB BLOOD BANK TEST ORD ERABLES Final Result Performing Organization Address City/[facility]/ZIP Co de Phone Number [facility] ([place]) 1 [facility] [place] [address] * Phosphorus (01/20/2025 7:21 PM CDT) Phosphorus, pl 3.1 2.3 - 4.5 mg/dL Blood 01/20/2025 7:21 PM CDT 01/20/2025 7:25 PM CDT Celeste Velez MD LAB BLOOD ORDERABLES Fi nal Result [facility] ([place]) 1 [facility] [place] [address] * Magnesium (01/20/2025 7:21 PM CDT) Magnesium 1.7 1.4 - 2.5 mg/dL Blood 01/20/2025 7:21 PM CDT 01/20/2025 7:25 PM CDT Celeste Velez MD LAB BLOOD ORDERABLES nal Result [facility] ([place]) 1 [facility] [place] [address] * (ABNORMAL) Comprehensive metabolic panel (01/20/2025 7:21 PM CDT) Sodium 137 135 - 145 mmol/L Potassium, pl 4.1 3.3 - 4.9 mmol/L [facility] ([place]) Chloride 101 97 - 110 mmol/L [facility] ([place]) CO2 23 22 - 32 mmol/L [facility] ([place]) Anion gap 14 2 - 15 mmol/L [facility] ([place]) BUN 26(H) 6 - 25 mg/dL [facility] ([place]) Creatinine 1.43(H) 0.80 - 1.30 mg/dL [facility] ([place]) Glucose 120 70 - 199 mg/dL [facility] ([place]) [...] Fi nal Result [facility] ([place]) 1 [facility] [place] [address] * BMP - Basic Metabolic Panel (7) (01/05/2025 9:41 AM CDT) Historical Provider LAB BLOOD ORDERABLES Lucia l Result * DEVICE CHECK - REMOTE (01/04/2025 1:06 PM CDT) Anatomical Region Laterality Modality Other Narrative 01/08/2025 10:41 AM CDT Yo [place] BIV ICD. Dx; CHF, SSS. Afib, AV Node Ablation. DOI 10/28/2023-Lynette. Chronic leads 05/25/2015. [place] remote monitoring. Unscheduled remote due to patient symptoms of sleeping a lot an unsteady gait. Patient was seen in the clinic for a device check on 12/30/2024. His device was programmed VVIR, rhythm was Atrial Flutter, and he was BIV pacing 38%. I reprogrammed his device to DDDR and turned on Sync AV. Mrs. Rdoas sent in a remote transmission. Review of [...] Modality Other Narrative 01/08/2025 10:39 AM CDT Cubitoant BIV ICD. Dx; CHF, SSS. Afib, AV Node Ablation. DOI 10/28/2023-Kahchente. Chronic leads 05/25/2015. [place] remote monitoring. LV lead is a MolecularMDtronic lead and therefor the device is Not MRI conditional d/t Questetra products. Supervising MD: Dr Whittaker. Left pectoral [...] based on patient's response to today's adjustments. [place] remote f/u 04/06/2025. Ning Johansen, TRI Jarett Yousif MD [facility] PROC EDURES Final Result * DEVICE CHECK - REMOTE (11/24/2024 10:05 AM CDT) Anatomical Region Laterality Modality Other Narrative 12/03/2024 8:25 AM CDT Yo [place] BIV ICD. Dx; CHF, SSS. Afib, AV Node Ablation. DOI 10/28/2023-Kah[place]te. Chronic leads 05/25/2015. [place] remote monitoring. LV lead is a MolecularMDtronic lead and therefore the device is Not MRI conditional d/t Questetra products. Dr Elida Beltran-original device implanter in [...] Final Result from Last 3 Months Insurance MEDICARE [facility] MEDICARE ADVANTAGE [facility] MEDICARE ADVANTAGE Advance Directives For more information, please contact: [phone] * Full Code (Latest Code Status on File) Date Activated Date Inactivated Comments 01/22/2025 11:51 AM 01/23/2025 7:53 PM * Full Code Date Activated Date Inactivated Comments 01/22/2025 11:47 AM 01/22/2025 11:51 AM * Full Code Date Activated Date Inactivated Comments 01/20/2025 7:14 PM 01/22/2025 11:47 AM Care Teams [employer] Director Relationship Specialty Start Date End Date Ruddy Yang MD [address] [place] [address] PCP - General Internal Medicine 01/02/21
--- OUTSIDE RECORDS SUMMARY | 2025-01-28 12:28 | XMS_ITS | Data Portability ---
Author Organization [employer], Main Office Address [address] [place] [address] Care Team Providers Care Protective Service Specialist Name Role Phone LYNDSAY BERNARD Primary Care Provider CHUCOH MIRANDA Gold Stamper Assessment No assessment recorded. Plan of Treatment [...] By Organization Details Last Modified Time 08/06/2024 [id number] it is unknown whether not he will pass his cardiac clearance and his son is concerned about the risk were dean in any case. We will set up open reduction nasal fracture until a decision is established [facility] Not available 08/06/2024 12:42:45 Reason for Referral None Reported. Problems Name Problem SNOMED Code Status Onset Date Resolution Date Notes Provider Name and Address Organization Details Recorded Time Closed fracture of nasal bones 41758110 Active 024 Glen Mayen MD [address], [address] , [employer] 12:42:25 Problem Notes None recorded. Procedures Surgical History Date Name Laterality Status Provider Name and Address Organization Details Recorded Time 08/26/19 13 cholecystectomy completed Malorie Elizabeth RN [employer] 08/06/2024 17:58:37 Imaging Results None recorded. Procedure Notes None recorded. Medical Equipment None Reported. Allergies Allergen ID Allergen Name Allergen Category Reaction Reaction Severity Criticality Documentation Date Start Date Code Code System Note Provider Name and Address Organization Details Recorded Time 37288 Oxycontin medicatio n Not available Not available Not available 08/06/2024 74469 6 RxNorm Malorie Elizabeth RN null, [place] - [facility] 4 12:26:30 Medications Name Sig [...] Address Organization Details Last Updated DateTime 08/06/2024 16832.92 g 26.4 kg/m2 172.72 cm 98 [degF] Malorie Elizabeth RN [facility] 08/06/2024 12:24:19 Social History None recorded. Functional [...] SNOMED-CT Code Diagnosis ICD10 Code Diagnosis Note [id number] Glen Mayen MD [facility] [place] [address] [place] [address] 08/06/2024 11:56:02 08/20/2024 10:43:43 Closed fracture of nasal bones 65883093 S02.2XXA Health Concerns Section Related Observation LastModified by Organization Detai ls LastModified Time None Recorded Concern Status LastModified by Organization Details LastModified Time None Recorded Advance Directives Directive None Recorded Payers Encounter Date Sequence Insurance Name Policy Number Policy De Jesus Covered Member ID De Jesus Member ID Guarantor Name 08/06/2024 1 [facility] (MEDICARE REPLACEMENT/A DVANTAGE - HMO) [id number] Jovan Rodas [id number] Jovan Rodas Notes Date Note Type Note Provider Name and Address Organization Details Recorded Time 08/06/2024 text/html This patient fel l and fractured his nose. There is a prominent external visible displacement of his nasal bones. He does have a significant cardiac history. Glen Mayen MD [address] [place] [address], [place] [address], [place], [address], [facility] 08/06/2024 12:43:01
--- OUTSIDE RECORDS SUMMARY | 2025-01-28 12:28 | XMS_ITS | Clinical Summary ---
Author Organization [facility] Trish bateman Address [address] [place] [address] Phone Care Team Providers Care Carbon Cutter Name Role Phone Ruddy Yang MD Primary Care Provider [phone] Allergies Active Allergy Reactions Criticality Noted Date [...] Ended) 2025 04/26/20 15, 06/26/2014 Insurance MEDICARE [facility] Care Teams Carbon Cutter Relationship Specialty Start Date End Date Ruddy Yang MD [address] [place] [address] PCP - General Internal Medicine 12/19/20
--- OUTSIDE RECORDS SUMMARY | 2025-01-28 12:28 | XMS_ITS | Data Portability ---
Author Organization [facility], [address] [facility] ([place]) Address [address] [place] [address] Care Team Providers Care Image Archivist Name Role Phone LYNDSAY BERNARD Primary Care [...] nortripty line 10 mg capsule 2023 024 [email or web address] [facility] [address], [address], 04/30/2024 14:03:08 Patient TargetsNo targets recorded. 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 Please review this document and add these problems to the patient's chart manually as needed. Problem Notes None recorded. Medical Equipment None Reported. Allergies Allergen ID Allergen Name Allergen Category Reaction Reaction Severity Criticality Documentation Date Start Date Code Code System Note Provider Name and Address Organization Details Recorded Time 312690 Oxycontin medicatio n Not available Not available Not available 09/23/20232015 85997 6 RxNorm Comme nt: React ion Date: 30 Nov 2010 ; Not Available [facility] 4 22:09:33 154387 Substance with sulfonami de structure and antibacte rial mechanism of action (substanc e) medicatio n Not available Not available Not available 09/23/20232015 84901 8003 SNOMED Comme nt: React ion Date: 29 May 2011 ; Not Available [facility] 4 22:09:33 Medications Name Sig Start Date [...] Address Organization Details Last Updated DateTime 4 [address].7 4 g 24.7 kg/m2 173.99 cm 61 /min 124 mm[Hg] 68 mm[Hg] [facility] 4 13:10:51 Social History None recorded. Functional Status None recorded. Mental Status None recorded. Family History Nothing Reported. Medical History No medical history recorded. Past Encounters Encounter ID Performer Location Encounter Start Date Encounter Closed Date Diagnosis/Indication Diagnosis SNOMED-CT Code Diagnosis ICD10 Code Diagnosis Note [id number] Mayra Rowell MD [facility] [place] [place] ([place]) [address] [place] [address] 04/30/2024 13:03:23 05/03/2024 06:26:37 Idiopathic progressive polyneuropathy 70875288 G60.3 Health Concerns Section Related Observation LastModified by Organization Detai ls LastModified Time None Recorded Concern Status LastModified by Organization Details LastModified Time None Recorded Advance Directives Directive None Recorded Payers Insurance Date Sequence Insurance Name Policy Number Policy De Jesus Covered Member ID De Jesus Member ID Guarantor Name 05/03/2024 1 [facility] (MEDICARE REPLACEMENT/A DVANTAGE - PPO) [id number] Jovan Johnson Clark [id number] Jovan Alex Clark Notes Date Note Type [...] or a wheelchair.SKK Mayra Rowell MD [address], [address], [facility] 05/01/2024 19:00:20
[2025-01-28 14:20] VITALS: BP 120/65; PULSE 71; RESP 16; TEMP 35.9; O2SAT 98
--- NOTE | 2025-01-28 14:25 | PC.NURSE ---
Patient here for 1 unit of PRBC. Patient tolerated IV start well. Resting in recliner with BLE elevated, Waiting for blood to be ready. Call light provided, ice water provided.
[2025-01-28] MEDS: SODIUM CHLORIDE 0.9% IV 250 ML 10 ML IVPB (14:37)
[2025-01-28 14:53] VITALS: BMI 23.9
[2025-01-28 14:59] VITALS: BP 120/65; PULSE 71; RESP 16; TEMP 35.9; O2SAT 98
[2025-01-28 15:15] VITALS: BP 133/64; PULSE 71; RESP 16; TEMP 35.9; O2SAT 97
[2025-01-28 16:15] VITALS: BP 136/86; PULSE 70; RESP 16; TEMP 35.9; O2SAT 99
--- NOTE | 2025-01-28 16:15 | PC.NURSE ---
Patient tolerating Blood transfusion well. Voided 200ml per urinal. Resting in recliner with BLE elevated. Denies any needs.
[2025-01-28 17:13] VITALS: BP 139/73; PULSE 70; RESP 18; TEMP 35.9; O2SAT 95
--- NOTE | 2025-01-28 17:15 | PC.NURSE ---
Blood done transfusing. IV line running NS till line clear of blood. Patient continue resting in recline. VSS. Call light at side.
[2025-01-28 17:42] LABS: Hematocrit 28.3 % (37.0-46.0); Hemoglobin 8.9 g/dL (12.4-15.3)
--- NOTE | 2025-01-28 17:45 | PC.NURSE ---
Post H&H drawn. Patient notified of result. and son here to transport patient home. IV site discontinued, dressing applied to site. Patient taken down to front door via wheel chair, left via private vehicle with son and . Denies any quesitons at discharge.
== END 2025-01-28 17:45 | disposition home or self-care (01) ==
LOC: CHSLAB 11:22 → CHSTREATRM 13:53
PROVIDERS: PCP Internal Medicine; Visit Provider Internal Medicine
DX: D64.9 Anemia, unspecified (principal); R53.83 Other fatigue; I50.9 Heart failure, unspecified; N18.4 Chronic kidney disease, stage 4 (severe)
CPT/HCPCS: 36415; 36430; 80053; 82728; 83540; 83880; 85014; 85018; 85025; 85046; 86850; 86900; 86901; 86920; J7050; P9016

== ENCOUNTER 2025-02-01 12:36 | Outpatient (CLI) | payer MEDICARE, SELFPAY ==
[2025-02-01 13:07] LABS: Hematocrit 29.2 % (37.0-46.0)
--- OUTSIDE RECORDS SUMMARY | 2025-02-01 13:45 | XMS_ITS | Clinical Summary ---
Author Organization [facility] Address [address], [facility] [address] [place] [address] Phone Care Team Providers Care Cost And Sales Record Supervisor Name Role Phone Provider, Not On [...] drink = 0.6 oz pur e alcohol) [facility] Utilities Answer Date Recorded In the past 12 months has [employer], [employer], or [employer] threatened to shut off services in your home? Patient declined 09/24/2023 Social Connection and Isolation Panel Answer Date Recorded In a typical week, how many times do you talk on the phone with family, friends, or neighbors? Patient declined 09/24/2023 How often do you get togethe r with friends or relatives? Patient declined 09/24/2023 How often do you attend evangelical or congregational serv ices? Patient declined 09/24/2023 Do you belong to any clubs o r organizations such as evangelical groups, unions, fraternal or athletic groups, or [...] Answer Date Recorded PHQ-2 Score 0 04/27/2019 [facility] - Occupational Stress Questionnaire Answer Date [...] place to sleep or slept in a halfway (including now)? Patient declined 09/24/2023 Sex and Gender Information Value Date Recorded Sex Assigned at Not on file Legal Sex Male 2:21 PM OPERATIONS RESEARCH MANAGER Gender Identity Not on file Sexual Orientation Not on file Last Filed Vital Signs Vital Sign Reading Time Taken Comments Blood Pressure 150/84 09/26/2023 8:00 AM OPERATIONS RESEARCH MANAGER Pulse 74 09/26/2023 8:00 AM OPERATIONS RESEARCH MANAGER Temperature 35.9 C (96.7 F) 09/26/2023 8:33 AM OPERATIONS RESEARCH MANAGER Respiratory Rate 20 09/26/2023 8:00 AM OPERATIONS RESEARCH MANAGER Oxygen Saturation 97% 09/26/2023 8:0 0 AM OPERATIONS RESEARCH MANAGER Inhaled Oxygen Concentration - - Weight 77.5 kg (170 lb 12.8 oz) 09/26/2023 5:55 AM OPERATIONS RESEARCH MANAGER daily weight Height 172.7 cm (5' 8) 09/24/2023 3:06 PM OPERATIONS RESEARCH MANAGER Body Mass Index 25.97 09/24/2023 3:06 PM OPERATIONS RESEARCH MANAGER Plan of Treatment Health Maintenance Due [...] age to complete this topic Insurance [facility] MEDICARE [facility] MEDICARE C [facility] Advance Directives * Full Code (Latest Code Status on File) Date Activated Date Inactivated Comments 09/24/2023 4:08 PM 09/26/2023 3:01 PM CPR-Full Cristiane tment: FULL ARREST: Attempt Resuscitation/CPR wit intubation and mechanical ventilation. PRE-ARREST: Use entire range of life support measures to stabilize the patient. Care Teams Cost And Sales Record Supervisor Relationship Specialty Start Date End Date Provider, Not On File [place] PCP - General 09/26/23
--- OUTSIDE RECORDS SUMMARY | 2025-02-01 13:46 | XMS_ITS | Clinical Summary ---
Author Organization [facility] Address [address] [place] [id number] Phone Care Team Providers Care Crisis Therapist Name Role Phone Ruddy Yang MD Primary Care Provider [phone] Allergies Active Allergy Reactions Criticality Noted Date [...] Ended) 2025 04/26/20 15, 06/26/2014 Insurance MEDICARE [facility] Care Teams Crisis Therapist Relationship Specialty Start Date End Date Ruddy Yang MD [address] [place] [id number] PCP - General Internal Medicine 12/19/20
--- OUTSIDE RECORDS SUMMARY | 2025-02-01 13:46 | XMS_ITS | Clinical Summary ---
Author Organization [facility] Address [address] [facility] [place] [address] Phone Care Team Providers Care Equipment Maintenance Supervisor Name Role Phone Unavailable Primary Care Provider [...] daily. Active fluticasone propionate (FLONASE) 50 mcg/spray [place], Suspension nasal inhaler Administer 2 Sprays in each nostril daily. Active ipratropium bromide (ATROVENT) 42 mcg (0.06 %) [place], Non-Aerosol Administer 2 Sprays in each nostril [...] on file Legal Sex Male 11:34 AM DOOR SLINGER Gender Identity Not on file Sexual Orientation Not on file Last Filed Vital Signs Vital Sign Reading Time Taken Comments Blood Pressure 140/77 10/22/2022 10:05 AM DOOR SLINGER Pulse 70 10/22/2022 10:01 AM DOOR SLINGER Temperature 35.7 C (96.3 F) 10/22/2022 10:01 AM DOOR SLINGER Respiratory Rate 10 10/22/2022 10:0 1 AM DOOR SLINGER Oxygen Saturation 98% 10/22/2022 10: 01 AM DOOR SLINGER Inhaled Oxygen Concentration - - Weight 81.5 kg (179 lb 11.2 oz) 023 10:01 AM DOOR SLINGER Height 172.7 cm (5' 8) 03/21/2022 11:1 [...] Sig/CT Colonography Q 5 years Discontinued Insurance [place] [id number]
--- OUTSIDE RECORDS SUMMARY | 2025-02-01 13:46 | XMS_ITS | Referral Summary ---
Author Organization [facility] [address] [facility] [address] Address [address] [place] [address] Care Team Providers Care Channeler Runner Name Role Phone Ruddy Yang MD Primary Care Provider [phone] Encounters Date Type Department Care Team Description 01/29/2025 Telephone [facility] Gastroenterology at [address] [place] [phone] Yamel Salguero 01/29/2025 Results Follow-Up [facility] Gastroenterology at [address] [place] [phone] Karey Dong MD Surgical pathology 01/20/2025 7:02 PM CDT - 01/23/2025 3:47 PM CDT Hospital Encounter [address] [address] Rosemary Kidd DO Petters, Ekanga Sunday, MD Nikolic, Jelena, MD Nations, Matthew Austin, DO Kim, Eileen H., MD Severe anemia [D64.9] (Primary Dx); Gastrointestinal hemorrhage, unspecified gastrointestinal hemorrhage type; Occult GI bleeding; Juxtarenal abdominal aortic aneurysm (AAA) without rupture; Severe anemia Discharge Disposition: Discharge to home or self care 01/22/2025 12:30 PM CDT Anesthesia Event [facility] 1 [place] [address] Romulo Agee MD 01/22/2025 12:00 PM CDT - 01/22/2025 12:50 PM CDT Surgery [facility] 1 [place] [address] Karey Dong MD COLON CONTROL BLEEDING 01/07/2025 1:00 PM CDT Office Visit [facility] [address] [place] [address] [place] [phone] Kary Rayo NP 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 heart failure (HCC) (Primary Dx); 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; Chronic coronary artery disease; Permanent atrial fibrillation (HCC); Primary hypertension; Hypercholesterolemia; S/P TAVR (transcatheter aortic valve replacement) 01/06/2025 Orders Only [facility] [address] [place] [address] [place] [phone] Iker Ponce MD 01/04/2025 8:00 AM CDT Ancillary Procedure [address] [place] [phone] ICD (implantable cardioverter-defibrill ator) in place; Permanent atrial fibrillation (HCC); 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; S/P AV josué ablation; Congestive heart failure, unspecified HF chronicity, unspecified heart failure type (HCC) 01/04/2025 Telephone [facility] [address] [place] [address] [place] [phone] Jarett Yousif MD 12/30/2024 Orders Only [facility] [address] [place] [address] [place] [phone] Jarett Yousif MD ICD (implantable cardioverter-defibrill ator) in place (Primary Dx); Permanent atrial fibrillation (HCC); 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; S/P AV josué ablation; Congestive heart failure, unspecified HF chronicity, unspecified heart failure type (HCC) 12/30/2024 10:00 AM CDT Ancillary Procedure [facility] [address] [place] [address] [place] [phone] Longstanding persistent atrial fibrillation (HCC); SSS (sick sinus syndrome) (HCC); Congestive heart failure, unspecified HF chronicity, unspecified heart failure type (HCC); 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; History of atrioventricular josué ablation 12/29/2024 Telephone [facility] [address] [place] [phone] Jarett Yousif MD 12/04/2024 11:30 AM CDT Office Visit [facility] [address] [place] [address] [place] [phone] Letitia Kumar NP Coronary artery disease of [place] heart with stable angina pectoris, unspecified vessel or lesion type (Primary Dx); 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; Permanent atrial fibrillation (HCC); Chronic anticoagulation 11/24/2024 8:45 AM CDT Ancillary Procedure [facility] [address] [place] [address] [place] [phone] 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 (Primary Dx); Cardiomyopathy, unspecified type (HCC); SSS (sick sinus syndrome) (HCC); Permanent atrial fibrillation (HCC); Congestive heart failure, unspecified HF chronicity, unspecified heart failure type (HCC) 11/09/2024 8:45 AM CDT Office Visit [facility] [address] [place] [phone] Jarett Yousif MD 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 (Primary Dx); Hx of CABG; [...] total) by mouth daily 30 tablet 01/08/[address] (PROTONIX) 40 mg [...] tablet/capsu le (20 mEq total) by mouth sld educational aide before breakfast 09/26/19 24 025 Discontinued(St op Taking at Discharge) Active Problems Problem Noted Date Diagnosed Date Occult GI bleeding 01/21/2025 GIB (gastrointestinal bleeding) 01/20/2025 Severe anemia 01/20/2025 Elective replacement of impl antable cardioverter-defibrillator (ICD) battery required 10/01/2023 Sensorineural hearing loss (SNHL) of both ears 1 09/02/2022 Assessment & Plan (07/03/2023 10:35 AM CALL CENTER ASSISTANT): Hearing test Flonase 2 sprays into each [...] 07/03/2023 Assessment & Plan (07/03/2023 10:35 AM CALL CENTER ASSISTANT): Hearing test Flonase 2 sprays into each [...] (07/11/2022): Added automatically from request for surgery [id number] Pain associated with wound 06/28/2022 S/P TAVR (transcatheter aortic valve replacement ) 05/16/2021 Hx of CABG 02/07/2021 Permanent atrial fibrillation 02/07/2021 ICD (implantable cardioverter-defibrillator) in place 02/07/2021 History of coronary artery stent placement 02/07 Biventricular ICD (implantab le cardioverter-defibrillator) in place 01/04/2021 Overview (10/28/2023): Zentricant BIV ICD. Dx; CHF, SSS. Afib, AV Node Ablation. DOI 10/28/2023- Lynette. Chronic leads 05/25/2015. [place] remote monitoring. LV lead is a [employer]tr[employer] lead and therefore the device is Not MRI conditional d/t [employer] products. Dr Elida Beltran-original device implanter in [...] 0.6 oz pur e alcohol) [facility] [employer] Answer Date Recorded In the past 12 months has [place], gas, oil, or water [email or web address] threatened to shut off services in your [...] often do you attend chur ch or sabianism services? Never 01/21/2025 Do you belong to any clubs o r organizations such as mormon groups, unions, fraternal or athletic groups, or [...] any time in the past 12 m [facility], were you homeless or living in a mcc (including now)? No 01/21/2025 Personal Safety Answer Date Recorded Have you ever been in or are you currently in a harmful physical or emotional relationship or is someone making you feel afraid or unsafe? Denies 01/20/2025 Sex and Gender Information Value Date Recorded Sex Assigned at Not on file Legal Sex Male 1:59 AM CALL CENTER ASSISTANT Gender Identity Not on file Sexual [...] on file Medical Devices Implanted Type Area Networking Technology Instructor Device Identifier Shelf Expiration Date Model / Serial / Lot Icd ICD Heart Pacemaker Pacemaker Heart Description:PACEMAKER/ICD Stent Implanted:Qty: 2 Stent Heart Yo Vascular Defib Cardiac [id number] [place] Hf Df4 Is-4 Is-1 Cnctr [id number] - [id number] - [id number] Implanted:Qty: 1 on 10/28/2023 by Eric Ojeda MD at [facility] 08/25/2025 [id number] / [id number] / Procedures Procedure Name Priority Date/Time Associated [...] BLOOD ORDERABLES Final Resu lt [facility] ([place]) 1 [facility] Department [place] [address] * (ABNORMAL) eGFR (01/23/2025 4:04 AM CDT) [...] us Celeste Velez MD LAB BLOOD ORDERABLES [facility] Result J[facility]IOR [facility] ([place]) 1 [facility] Department [place] [address] * (ABNORMAL) Differential, auto (01/23/2025 4:04 AM [...] BLOOD ORDERABLES Fi nal Result [facility] ([place]) 1 [facility] Department [place] [address] * (ABNORMAL) CBC with auto differential (01/23/2025 [...] RDW SD 62.5(H) 35.7 - 48.1 fL [facility] ([place]) NRBC abs 0.00 0.00 - 0.01 K/cumm [facility] ([place]) Blood 01/23/2025 4:04 AM CDT 01/23/2025 4:59 AM CDT Celeste Velez MD LAB BLOOD ORDERABLES Fi nal Result Performing Organization Address City/[facility] Co de Phone Number [facility] ([place]) 1 [facility] [place] [address] * Magnesium (01/23/2025 4:04 AM CDT) Magnesium 1.7 1.4 - 2.5 mg/dL Blood 01/23/2025 4:04 AM CDT 01/23/2025 4:59 AM CDT Celeste Velez MD LAB BLOOD ORDERABLES Fi nal Result [facility] ([facility]) 1 [facility] [place] [address] * (ABNORMAL) Comprehensive metabolic panel (01/23/2025 4:04 AM CDT) Sodium 139 135 - 145 mmol/L Potassium, pl 3.4 3.3 - 4.9 mmol/L [facility] ([place]) Chloride 106 97 - 110 mmol/L [facility]) CO2 21(L) 22 - 32 mmol/L [facility] ([place]) Anion gap 12 2 - 15 mmol/L [facility] ([place]) BUN 16 6 - 25 mg/dL [facility] ([place]) Creatinine 1.36(H) 0.80 - 1.30 mg/dL [facility] ([place]) Glucose 110 70 - 199 mg/dL [facility] ([place]) Comment: Interpretive Data Fasting glucose >/= 126 [...] LAB BLOOD ORDERABLES Fi nal Result JUNIOR [facility] [place]) [address] Department [place] [address] * EGD (01/22/2025 11:51 AM CDT) Anatomical Region Laterality Modality Other Narrative Procedure Note Karey Dong MD - 01/22/2025 11:51 AM CDT [facility] Patient Name: Elida Rodas Procedure Date: 01/22/2025 11:51 AM Date of : 1940 Admit Type: Inpatient Age: 84 Gender: Male Attending MD: Karey Dong M.D. Room: [facility] ENDOSCOPY ROOM 2 Note Status: Finalized Patient [...] procedure were verified by the physician, the food science technician and the senior health physics technician in the endoscopy suite. Mental Status [...] passed under direct vision. The Endoscope [id number]-H190 [id number] was introduced through the mouth, and advanced [...] 11:51 AM Procedure Code(s): --- Professional --- 81333, Esophagogastroduodenoscopy, flexible, transoral; with biopsy, single or multiple --- Technical --- 37986, Esophagogastroduodenoscopy, flexible, transoral; with biopsy, single or multiple Diagnosis Code(s): --- Professional --- K21.00, Gastro-esophageal reflux disease with esophagitis, without bleeding D50.0, Iron deficiency anemia secondary to blood loss (chronic) K92.1, Melena (includes Hematochezia) --- Technical --- K21.00, Gastro-esophageal reflux disease with esophagitis, without bleeding D50.0, Iron deficiency anemia secondary to blood loss (chronic) K92.1, Melena (includes Hematochezia) CPT copyright 2020 [place] [employer]. All rights reserved. The codes documented in this report are preliminary and upon guyline operator reviewmay be revised to meet current compliance requirements. Recognized by the [place] [employer] for promoting quality in endoscopy us Karey Dong MD ENDOSCOPY PROCEDURES Final Resul t * Colonoscopy (01/22/2025 11:49 AM CDT) Anatomical Region Laterality Modality Other Narrative Procedure Note Karey Dong MD - 01/22/2025 11:49 AM CDT [facility] Patient Name: Elida Rodas Procedure Date: 01/22/2025 11:49 AM Date of : 1940 Admit Type: Inpatient Age: 84 Gender: Male Attending MD: Karey Dong M.D. Room: [facility] ENDOSCOPY ROOM 2 Note Status: Finalized Patient [...] coagulation (APC). Clip (MRconditional) was placed. Clip brim and crown presser: [employer]. - One 8 mm polyp in the [...] procedure were verified by the physician, the food science technician and the senior health physics technician in the endoscopy suite. Mental Status [...] under direct vision. The Pediatric Colonoscope [id number]-[id number] was introducedthrough the anus and advanced to [...] clip was successfully placed (MR conditional). Clip brim and crown presser: [employer]corda. There was no bleeding at the end [...] 11:49 AM Procedure Code(s): --- Professional --- 64954, Colonoscopy, flexible; with control of bleeding, any method --- Technical --- 76144, Colonoscopy, flexible; with control of bleeding, any [...] perforation orabscess without bleeding CPT copyright 2020 [place]. All rights reserved. The codes documented in this report are preliminary and upon guyline operator reviewmay be revised to meet current compliance requirements. Recognized by the [place] [employer] for promoting quality in endoscopy us Karey Dong MD ENDOSCOPY PROCEDURES Final Resul t * Surgical pathology (01/22/2025 9:52 AM CDT) Tissue (EG Junction, Biopsy) 01/22/2025 12:48 PM CDT Narrative PATHOLOGY [facility] ([facility]) - 01/26/2025 2:52 PM CDT EPIC results best viewed via link to PDF [facility] Department of Pathology [address] [place], [place] [id number] Note to Patients: This report may contain [...] Final Report Patient Name: ELIDA RODAS Address: [address] [place] [phone] Gender: M : 1940 (Age: 84) Service: Medical Location: [facility] Hospital #: [id number] Patient Type: [facility] Taken: 01/22/2025 Received: 01/25/2025 Accessioned: 01/25/2025 Reported: [...] a single formalin filled container labeled ELIDA RODAS and GE junction biopsy. It is 3 [...] determined by the Surgical Pathology Department at [facility] as part of an ongoing quality system manager program and in compliance with federally mandated [...] characteristics determined by the Surgical Pathology Department [facility]. It has not been cleared or approved by the U. S. Food and Drug Administration. Note for decalcified specimens: This assay has not been validated on decalcified tissues. Results should be interpreted with caution given the possibility of false negativity on decalcified specimens Karey Dong MD LAB PATHOLOGY ORDERABLES Final R esult PATHOLOGY [facility] ([place]) 1 [place] [address] * (ABNORMAL) eGFR (01/22/2025 4:18 AM [...] LAB BLOOD ORDERABLES Fi nal Result J[facility]IOR [facility] ([place]) 1 [facility] Department [place] [address] * Differential, auto (01/22/2025 4:18 AM CDT) Neutrophil abs 3.10 1.50 - 6.50 K/cumm Imm gran abs 0.00 0.00 - 0.10 K/cumm [facility] ([facility]) Lymphocyte abs 0.81 0.80 - 3.30 K/cumm [facility] ([place]) Monocyte abs 0.63 0.20 - 0.80 K/cumm [facility] ([place]) Eosinophil abs 0.15 0.00 - 0.50 K/cumm [facility] ([place]) Basophil abs 0.02 0.00 - 0.10 K/cumm [facility] ([place]) Neutrophil pct 65.8 % [facility] ([place]) Comment: Interpretive Data Percent cell count reference ranges are not reported, since discordance with absolute values may lead to misinterpretation of CBC data. Current Interpretive Data was last revised on 2017. Imm gran pct 0.0 % [facility] ([place]) Comment: Interpretive Data Percent cell count reference ranges are not reported, since discordance with absolute values may lead to misinterpretation of CBC data. Current Interpretive Data was last revised on 2017. Lymphocyte pct 17.2 % [facility] ([place]) Comment: Interpretive Data Percent cell count reference ranges are not reported, since discordance with absolute values may lead to misinterpretation of CBC data. Current Interpretive Data was last revised on 2017. Monocyte pct 13.4 % [facility] ([place]) Comment: Interpretive Data Percent cell count reference ranges are not reported, since discordance with absolute values may lead to misinterpretation of CBC data. Current Interpretive Data was last revised on 2017. Eosinophil pct 3.2 % [facility] ([place]) Comment: Interpretive [...] Fi nal Result [facility] ([place]) 1 [facility] Department [place] [address] * (ABNORMAL) CBC with auto differential (01/22/2025 [...] NRBC abs 0.00 0.00 - 0.01 K/cumm [facility] ([place]) Blood 01/22/2025 4:18 AM CDT 01/22/2025 5:30 AM CDT Celeste Velez MD LAB BLOOD ORDERABLES Fi nal Result Performing Organization Address City/[facility]/ZIP Co de Phone Number J[facility]IOR [facility] ([place]) 1 [facility] [place] [address] * Magnesium (01/22/2025 4:18 AM CDT) Pathologist [facility] Magnesium 1.7 1.4 - 2.5 mg/dL Blood 01/22/2025 4:18 AM CDT 01/22/2025 5:29 AM CDT Celeste Velez MD LAB BLOOD ORDERABLES Fi nal Result Performing Organization Address City/[facility] de Phone Number [facility] ([place]) 1 [facility] [place] [address] * (ABNORMAL) Comprehensive metabolic panel (01/22/2025 4:18 AM CDT) Sodium 138 135 - 145 mmol/L Potassium, pl 3.3 3.3 - 4.9 mmol/L [facility] ([place]) Chloride 103 97 - 110 mmol/L [facility] ([place]) CO2 20(L) 22 - 32 mmol/L [facility] ([place]) Anion gap 15 2 - 15 mmol/L [facility] ([place]) BUN 22 6 - 25 mg/dL [facility] ([place]) Creatinine 1.40(H) 0.80 - 1.30 mg/dL [facility] Glucose 111 70 - 199 mg/dL [facility] ([place]) Comment: Interpretive Data Fasting glucose [...] classification and Diagnosis of Diabetes Diabetes Care 202; 46: S19-S40. Current interpretive data was last revised 2022. Calcium 8.8 8.5 - 10.3 mg/dL [facility] ([place]) Bilirubin, total 1.0 0.1 - 1.2 mg/dL [facility] ([place]) Protein, pl 6.1(L) 6.5 - 8.5 g/dL [facility] ([place]) Albumin 3.6 3.5 - 5.0 g/dL [facility] ([place]) Alk phos 26(L) 40 - 130 Units/L [facility] ([place]) ALT 9 7 - 55 Units/L [facility] ([place]) AST 17 10 - 50 Units/L [facility] ([place]) Blood 01/22/2025 4:18 AM CDT 01/22/2025 5:29 AM CDT us Celeste Velez MD LAB BLOOD ORDERABLES Fi nal Result [facility] ([place]) 1 [facility] [place] [address] * (ABNORMAL) Hemoglobin and hematocrit (01/21/2025 12:44 PM CDT) Hgb 9.2(L) 13.0 - 17.5 g/dL Hct 28.3(L) 38.9 - 50.3 % [facility] ([place]) Blood 01/21/2025 12:4 4 PM CDT 01/21/2025 12:48 PM CDT Celeste Velez MD LAB BLOOD ORDERABLES Fi nal Result [facility] ([place]) 1 [facility] [place] [address] * (ABNORMAL) Protime-INR (01/21/2025 12:44 PM CDT) PT 17.8(H) 9.7 - 13.0 sec [facility] ([place]) INR 1.63(H) 0.90 - 1.20 [facility] ([place]) Comment: Interpretive data Oral anticoagulant therapeutic ranges: Venous thromboembolism prophylaxis or treatment: 2.0-3.0 CARDIOLOGY Standard range: 2.0-3.0 High-intensity range: 2.5-3.5 Refer to indication-specific guidelines for appropriate target ranges for prosthetic heart valve replacement. Current interpretive data was last revised on 2019. Blood 01/21/2025 12:4 4 PM CDT 01/21/2025 12:48 PM CDT Kailyn FAIRCHILD LAB BLOOD ORDERABLES Fin al Result JUNIOR [facility] ([place]) 1 [facility] Department [place] [address] * (ABNORMAL) eGFR (01/21/2025 5:39 AM CDT) [...] BLOOD ORDERABLES Fi nal Result [facility] ([place]) 1 [facility] Department [place] [address] * Differential, auto (01/21/2025 5:39 AM CDT) [...] revised on 2017. Basophil pct 0.2 % [facility] ([place]) Comment: Interpretive Data Percent cell count reference ranges are not reported, since discordance with absolute values may lead to misinterpretation of CBC data. Current Interpretive Data was last revised on 2017. Blood 01/21/2025 5:39 AM CDT 01/21/2025 5:52 AM CDT Celeste Velez MD LAB BLOOD ORDERABLES Fi nal Result Performing Organization Address City/[facility]/ZIP Co de Phone Number [facility] ([place]) 1 [facility] [employer] [place] [address] * Iron profile w/ IBC (01/21/2025 5:39 AM CDT) Iron 98 50 - 150 mcg/dL TIBC 285 250 - 400 mcg/dL [facility] ([place]) Transferrin saturation 34 20 - 50 % [facility] ([place]) Blood 01/21/2025 5:39 AM CDT 01/21/2025 5:52 AM CDT Celeste Velez MD LAB BLOOD ORDERABLES Fi nal Result Performing Organization Address City/[facility]/ZIP Co de Phone Number [facility] ([place]) 1 [facility] [place] [address] * (ABNORMAL) CBC with auto differential (01/21/2025 5:39 AM CDT) WBC 4.56 3.80 - 9.90 K/cumm Hgb 8.1(L) 13.0 - 17.5 g/dL [facility] ([place]) Hct 25.3(L) 38.9 - 50.3 % [facility] ([place]) Plt 105(L) 150 - 400 K/cumm [facility] ([place]) MPV 9.9 9.1 - 12.3 fL [facility] ([place]) RBC 2.59(L) 4.30 - 5.80 M/cumm [facility] MCV 97.7(H) 81.3 - 96.4 fL [facility] ([place]) MCH 31.3 27.1 - 33.3 pg [facility] ([place]) MCHC 32.0(L) 32.3 - 35.7 g/dL [facility] ([place]) RDW CV 17.4(H) 11.1 - 14.9 % [facility] ([place]) RDW SD 62.3(H) 35.7 - 48.1 fL [facility] ([place]) NRBC abs 0.00 0.00 - 0.01 K/cumm [facility] ([place]) Blood 01/21/2025 5:39 AM CDT 01/21/2025 5:52 AM CDT Celeste Velez MD LAB BLOOD ORDERABLES Fi nal Result [facility] ([place]) 1 [facility] [employer] [place] [address] * (ABNORMAL) Hemoglobin and hematocrit (01/21/2025 5:39 AM CDT) Hgb 8.1(L) 13.0 - 17.5 g/dL Hct 25.1(L) 38.9 - 50.3 % [facility] ([place]) Blood 01/21/2025 5:39 AM CDT 01/21/2025 5:52 AM CDT Celeste Velez MD LAB BLOOD ORDERABLES Fi nal Result [facility] ([place]) 1 [facility] [employer] [place] [address] * Magnesium (01/21/2025 5:39 AM CDT) Magnesium 1.8 1.4 - 2.5 mg/dL Blood 01/21/2025 5:39 AM CDT 01/21/2025 5:52 AM CDT Celeste Velez MD LAB BLOOD ORDERABLES Fi nal Result [facility] ([place]) 1 [facility] [place] [address] * Lactate dehydrogenase (LD) (01/21/2025 5:39 AM CDT) Lactate dehydrogenase (LDH) 224 100 - 250 Units/L Blood 01/21/2025 5:39 AM CDT 01/21/2025 5:52 AM CDT Celeste Velez MD LAB BLOOD ORDERABLES Fi nal Result Performing Organization Address [facility] Co de Phone Number [facility] ([place]) [address] [place] [address] [place] [address] * Haptoglobin (01/21/2025 5:39 AM CDT) Haptoglobin 68 30 - 200 mg/dL Comment:Testing performed by : [facility], [address] [place] [address], [id number] Blood 01/21/2025 5:39 AM CDT 01/21/2025 9:08 AM CDT Celeste Velez MD LAB BLOOD ORDERABLES Fi nal Result Performing Organization Address City/[facility]/ZIP Co de Phone Number [facility] ([place]) 1 [facility] [place] [address] * Folate (01/21/2025 5:39 AM CDT) Folic acid >20.0 >=5.0 ng/mL Comment:Slightly Hemolyzed S pecimen. Results may be affected. Blood 01/21/2025 5:39 AM CDT 01/21/2025 5:52 AM CDT Celeste Velez MD LAB BLOOD ORDERABLES Fi nal Result [facility] ([place]) 1 [place] [address] * Ferritin (01/21/2025 5:39 AM CDT) Ferritin 61 30 - 400 ng/mL Blood 01/21/2025 5:39 AM CDT 01/21/2025 5:52 AM CDT Celeste Velez MD LAB BLOOD ORDERABLES Fi nal Result Performing Organization Address City/[facility]/ZIP Co de Phone Number [facility] ([place]) 1 [facility] [place] [address] * Vitamin B12 (01/21/2025 5:39 AM CDT) Pathologist [facility] Vitamin B12 688 230 - 1,250 pg/mL Blood 01/21/2025 5:39 AM CDT 01/21/2025 5:52 AM CDT Celeste Velez MD LAB BLOOD ORDERABLES Fi nal Result Performing Organization Address City/[facility]/ZIP Co de Phone Number JUNIOR [facility]NAM[facility] (BIGHORN) [address] [place] [address] * (ABNORMAL) Comprehensive metabolic panel (01/21/2025 5:39 AM CDT) Sodium 140 135 - 145 mmol/L Potassium, pl 4.1 3.3 - 4.9 mmol/L [facility] (IRENA) Chloride 104 97 - 110 mmol/L [facility] ([place]) CO2 23 22 - 32 mmol/L [facility] ([place]) Anion gap 13 2 - 15 mmol/L [facility] ([place]) BUN 25 6 - 25 mg/dL [facility] ([place]) Creatinine 1.49(H) 0.80 - 1.30 mg/dL [facility] ([place]) Comment:Icteric sample, test results may be affected. Glucose 103 70 - 199 mg/dL [facility] ([place]) [...] MD LAB BLOOD ORDERABLES Fi nal Result [facility] ([place]) 1 [facility] Department [place] [address] * Urinalysis reflex to microscopic and culture Urine (01/21/2025 4:38 AM CDT) Color, ur Yellow Yellow Clarity, ur Clear Clear [facility] ([place]) Specific gravity, ur 1.016 1.003 - [...] for uric acid stone formation. Source: [facility] Current Interpretive Data was last revised on [...] microscopic UA and culture not met. [facility] ([place]) Urine 01/21/2025 4:38 AM CDT 01/21/2025 4:43 AM CDT Celeste Velez MD LAB MICROBIOLOGY - GENE RAL ORDERABLES Final Result Performing Organization Address City/[facility]/ZIP Co de Phone Number JUNIOR [facility] ([place]) 1 [facility] [employer] [place] [address] * Transfuse RBC (01/21/2025 4:29 AM CDT) Blood Celeste Velez MD BLOOD TRANSFUSION ORDER AVEL Final Result [facility] ([place]) 1 [facility] Department [place] [address] * Prepare RBC: 1 Units (01/21/2025 1:23 AM CDT) Units requested 1 Units requested Ready [facility] ([place]) Blood 01/21/2025 1:23 AM CDT 01/21/2025 1:23 AM CDT Narrative [facility] ([place]) - 01/21/2025 1:24 AM CDT Are special requirements needed? (All products are leukoreduced and CMV- safe)->No Celeste Vleez MD BLOOD BANK PRODUCT ORDE RABLES Final Result [facility] ([place]) 1 [facility] [place] [address] * Prepare RBC (01/21/2025 1:16 AM CDT) Unit Number [id number] Product code [id number] [facility] ([place]) Blood Expiration Date [id number] [facility] ([place]) Product Blood Type (for scanning) 6200 [facility] ([place]) Product Blood Type APOS CERKIERA [facility] ([place]) Dispense Status DISPENSED [facility] ([place]ORN) us Celeste Velez MD BLOOD BANK PRODUCT ORDE RABLES Final Result [facility] ([place]) 1 [facility] [employer] [place] [address] * (ABNORMAL) Hemoglobin and hematocrit (01/21/2025 12:01 AM CDT) Hgb 6.8(L) 13.0 - 17.5 g/dL Hct 21.1(L) 38.9 - 50.3 % GRADYKIERA [facility] ([place]) Blood 01/21/2025 12:0 1 AM CDT 01/21/2025 12:12 AM CDT Celeste Velez MD LAB BLOOD ORDERABLES Fi nal Result [facility] ([place]) 1 [facility] [place] [address] * CT Chest Abdomen Pelvis WO Contrast [...] Arnold Garduno M.D. KT: REDD Report ID: [id number] Reading Location: [place] [address] Procedure Note Arnold Garduno MD - 01/21/2025 [...] signed by Arnold Garduno M.D. KT: REDD Chen: 01/21/2025 12:05 AM Report ID: [id number] Reading Location: [place] [address] Celeste Velez MD IMG CT PROCEDURES Final Result * ECG 12 lead (01/20/2025 9:11 PM CDT) 01/20/2025 9:11 PM CDT Narrative [facility] - 01/21/2025 2:35 PM CDT Vent Rate: 75 bpm RR Interval: 790 msec OK Interval: 0 msec QRS Duration: 163 msec QT Interval: 480 msec QTC Interval: 510 msec P-R-T [place]: 30159 - -86 - 89 degrees IMPRESSION: ELECTRONIC VENTRICULAR PACEMAKER WITH OCCASIONAL PVCS ABNORMAL RHYTHM ECG PVCS NEW Electronically Signed By: Corina Valentin MD Celeste Velez MD ECG ORDERABLES Final R esult Performing Organization Address City/[facility] Co de Phone Number [facility] * ABO / Rh Confirmation Testing (01/20/2025 8:20 PM CDT) ABO/Rh Confirmation AB Positive [facility] Blood 01/20/2025 8:20 PM CDT 01/20/2025 8:23 PM CDT Celeste Velez MD LAB BLOOD ORDERABLES Fi nal Result Performing Organization Address City/[facility] Co de Phone Number [facility] ([place]) 1 [facility] Department [place] [address] [facility] * (ABNORMAL) Pro B-type natriuretic peptide [...] MD LAB BLOOD ORDERABLES Fi nal Result [facility] [place] 1 [facility] Department of Laboratories [place], [place] [address] * (ABNORMAL) Troponin T high-sensitivity (01/20/2025 7:21 [...] ORDERABLES Fi nal Result Performing Organization Address City/[facility]/ZIP Co de Phone Number JUNIOR MCNAMARA ([place]) 1 [facility] Department [place] [address] * (ABNORMAL) eGFR (01/20/2025 7:21 PM CDT) [...] BLOOD ORDERABLES Fi nal Result [facility]UNIOR MCNAM[facility] ([place]) 1 [facility] Department [place] [address] * (ABNORMAL) Differential, auto (01/20/2025 7:21 PM CDT) Neutrophil abs 3.30 1.50 - 6.50 K/cumm Imm gran abs 0.02 0.00 - 0.10 K/cumm JUNIOR MCNAM[facility] ([place]) Lymphocyte abs 0.73(L) 0.80 - 3.30 K/cumm [...] Fi nal Result [facility]UNIOR [facility] ([place]) 1 [facility] Department [place] [address] * (ABNORMAL) CBC with auto differential (01/20/2025 7:21 PM CDT) Pathologist [facility] WBC 4.71 3.80 - 9.90 K/cumm Hgb [...] Fi nal Result [facility]IOR [facility]NAMARA ([place]) 1 [facility] [place] [address] * ABO/Rh (01/20/2025 7:21 PM CDT) [facility] ABO/Rh AB Positive Blood 01/20/2025 7:21 PM CDT 01/20/2025 7:25 PM CDT Narrative J[facility]IOR [facility] ([place]) - 01/20/2025 8:09 PM CDT Has the patient had Daratumumab or Isatuximab in the past 6 months?->Unknown Celeste Velez MD LAB BLOOD BANK TEST ORD ERABLES Final Result GRADYKIERA [facility] ([place]) 1 [facility] [place] [address] * Crossmatch (01/20/2025 7:21 PM CDT) Pathologist [facility] Crossmatch Compatible JUNIOR Cruz (B[place]ORN) Unit number for crossmatch [id number] J[facility]IOR [facility] ([place]ORN) Blood 01/20/2025 7:21 PM CDT 01/20/2025 7:25 PM CDT Celeste Velez MD LAB BLOOD BANK TEST ORD ERABLES Final Result Performing Organization Address [facility] Co de Phone Number GRADYKIERA [facility] ([place]) 1 [facility] [place] [address] * Antibody screen (01/20/2025 7:21 PM CDT) Pathologist [facility] Kylee, indirect, Gel Interpretation Negative ABSC Blood 01/20/2025 7:21 PM CDT 01/20/2025 7:25 PM CDT Narrative JUNIOR [facility] ([place]) - 01/20/2025 8:09 PM CDT Has the patient had Daratumumab or Isatuximab in the past 6 months?->Unknown Celeste Velez MD LAB BLOOD BANK TEST ORD ERABLES Final Result Performing Organization Address City/[facility]/ZIP Co de Phone Number JUNIOR [facility] ([place]) 1 [place] [address] * Phosphorus (01/20/2025 7:21 PM CDT) Pathologist [facility] Phosphorus, pl 3.1 2.3 - 4.5 mg/dL Blood 01/20/2025 7:21 PM CDT 01/20/2025 7:25 PM CDT Celeste Velez MD LAB BLOOD ORDERABLES Fi nal Result Performing Organization Address City/[facility]/ZIP Co de Phone Number JUNIOR [facility]NAM[facility] ([place]) 1 [facility] [place] [address] * Magnesium (01/20/2025 7:21 PM CDT) Magnesium 1.7 1.4 - 2.5 mg/dL Blood 01/20/2025 7:21 PM CDT 01/20/2025 7:25 PM CDT Celeste Velez MD LAB BLOOD ORDERABLES Fi nal Result Performing Organization Address [facility] de Phone Number JUNIOR MCNAMARA ([place]NA) 1 [facility] [place] [address] * (ABNORMAL) Comprehensive metabolic panel (01/20/2025 7:21 [...] BLOOD ORDERABLES Fi nal Result JUNIOR MCNAMARA ([place]ORN) 1 [facility] Department [place] [address] * BMP - Basic Metabolic Panel (7) (01/05/2025 9:41 AM CDT) Historical Provider LAB BLOOD ORDERABLES Lucia l Result * DEVICE CHECK - REMOTE (01/04/2025 1:06 PM CDT) Anatomical Region Laterality Modality Other Narrative 01/08/2025 10:41 AM CDT [facility] BIV ICD. Dx; CHF, SSS. Afib, AV Node Ablation. DOI 10/28/2023-Lynette. Chronic leads 05/25/2015. [place] remote monitoring. Unscheduled remote due to patient [...] Modality Other Narrative 01/08/2025 10:39 AM CDT [facility] [place] BIV ICD. Dx; CHF, SSS. Afib, AV Node Ablation. DOI 10/28/2023-Lynette. Chronic leads 05/25/2015. [place] remote monitoring. LV lead is a AMECtronic lead and therefor the device is Not MRI conditional d/t [employer] products. Supervising MD: Dr Whittaker. Left pectoral [...] based on patient's response to today's adjustments. [place] remote f/u 04/06/2025. Ning Johansen RN Jarett Yousif MD [facility] PROC EDURES Final Result * DEVICE CHECK - REMOTE (11/24/2024 10:05 AM CDT) Anatomical Region Laterality Modality Other Narrative 12/03/2024 8:25 AM CDT [facility] BIV ICD. Dx; CHF, SSS. Afib, AV Node Ablation. DOI 10/28/2023-Lynette. Chronic leads 05/25/2015. [facility] remote monitoring. LV lead is a AMECtronic lead and therefore the device is Not MRI conditional d/t [employer] products. Dr Elida Beltran-original device implanter in [...] mg, Follow up: Office Pacemaker/ICD scheduled 12/30/24 [place] remote 4 months Capo Wade RN Jarett Yousif MD [facility] C[facility] PROC EDURES Final Result from Last 3 Months Insurance [facility] MEDICARE ADVANTAGE MEDICARE [facility] UHC MEDICARE ADVANTAGE [facility] MEDICARE ADVANTAGE Advance Directives For more information, please contact: [phone] * Full Code (Latest Code Status on File) Date Activated Date Inactivated Comments 01/22/2025 11:51 AM 01/23/2025 7:53 PM * Full Code Date Activated Date Inactivated Comments 01/22/2025 11:47 AM 01/22/2025 11:51 AM * Full Code Date Activated Date Inactivated Comments 01/20/2025 7:14 PM 01/22/2025 11:47 AM Care Teams Channeler Runner Relationship Specialty Start Date End Date Ruddy Yang MD [address] [place] [address] PCP - General Internal Medicine 01/02/21
--- OUTSIDE RECORDS SUMMARY | 2025-02-01 13:46 | XMS_ITS | Data Portability ---
Author Organization [facility], [address] [facility] ([place]) Address [address] [place] [address] Care Team Providers Care Greeter Name Role Phone LYNDSAY BERNARD Primary Care Provider [phone] Assessment Encounter Date Assessment Date Assessment LastModified [...] nortripty line 10 mg capsule 2023 024 [email or web address] [facility] [address], [address], 04/30/2024 14:03:08 Patient TargetsNo targets recorded. 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 Please review this document and add these problems to the patient's chart manually as needed. Problem Notes None recorded. Medical Equipment None Reported. Allergies Allergen ID Allergen Name Allergen Category Reaction Reaction Severity Criticality Documentation Date Start Date Code Code System Note Provider Name and Address Organization Details Recorded Time 105491 Oxycontin medicatio n Not available Not available Not available 09/23/20232015 86987 6 RxNorm Comme nt: React ion Date: 30 Nov 2010 ; Not Available [facility] 4 22:09:33 965596 Substance with sulfonami de structure and antibacte rial mechanism of action (substanc e) medicatio n Not available Not available Not available 09/23/20232015 36946 8003 SNOMED Comme nt: React ion Date: 29 May 2011 ; Not Available [facility] 4 22:09:33 Medications Name Sig Start Date [...] Address Organization Details Last Updated DateTime 4 [address].7 4 g 24.7 kg/m2 173.99 cm 61 /min 124 mm[Hg] 68 mm[Hg] [facility] 4 13:10:51 Social History None recorded. Functional Status None recorded. Mental Status None recorded. Family History Nothing Reported. Medical History No medical history recorded. Past Encounters Encounter ID Performer Location Encounter Start Date Encounter Closed Date Diagnosis/Indication Diagnosis SNOMED-CT Code Diagnosis ICD10 Code Diagnosis Note [id number] Mayra Rowell MD [facility] [place] [place] ([place]) [address] [place] [address] 04/30/2024 13:03:23 05/03/2024 06:26:37 Idiopathic progressive polyneuropathy 03468436 G60.3 Health Concerns Section Related Observation LastModified by Organization Detai ls LastModified Time None Recorded Concern Status LastModified by Organization Details LastModified Time None Recorded Advance Directives Directive None Recorded Payers Insurance Date Sequence Insurance Name Policy Number Policy De Jesus Covered Member ID De Jesus Member ID Guarantor Name 05/03/2024 1 [facility] (MEDICARE REPLACEMENT/A DVANTAGE - PPO) [id number] Jovan Johnson Clark [id number] Jovan Alex Clark Notes Date Note Type [...] or a wheelchair.SKK Mayra Rowell MD [address], [address], [facility] 05/01/2024 19:00:20
--- OUTSIDE RECORDS SUMMARY | 2025-02-01 13:46 | XMS_ITS | Clinical Summary ---
Author Organization [facility] Address [address] [place] [address] Care Team Providers Care Decorator Inspector Name Role Phone Ruddy Yang MD Primary Care Provider [phone] Source Comments [email or web address] [facility],non-owned Affiliates and Associated Physician Practices is amultiple site organization consisting of ambulatory clinics and hospital sitesin [place], [place], [place] and [place]. This disclosure is being madepursuant to the Care Everywhere program and may not contain all information available regarding this patient. 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 Gender Identity Not on file Sexual [...] to complete this topic Insurance MEDICARE [facility] MEDICARE MEDICARE SELF PAY NO INSURANCE Member Subscriber Plan / Payer (Ef fective for All Dates) Name:Elida Davidson Naty Member ID:Not on file Relation to Subscriber:Not on file Name:ELIDA DAVIDSON Subscriber ID:Not on file (Home) Address: [address] [place] [address] Payer ID:Not on file Group ID:Not on file Type:Self Pay Address: [facility] MANAGED MEDICARE ADV * Guarantor: ELIDA DAVIDSON Account Type Relation to Patient Date of Phone Billing Address Personal/Family Spouse [address] [place] [address] SELF PAY NO INSURANCE Member Subscriber Plan / Payer (Ef fective for All Dates) Name:Elida Davidson Naty Member ID:Not on file Relation to Subscriber:Not on file Name:ELIDA DAVIDSON Subscriber ID:Not on file (Home) Address: [address] [place] [address] Payer ID:Not on file Group ID:Not on file Type:Self Pay Address: [place], [place] SELF PAY NO INSURANCE Member Subscriber Plan / Payer (Ef fective for All Dates) Name:Elida Davidson Member ID:Not on file Relation to Subscriber:Not on file Name:ELIDA DAVIDSON Subscriber ID:Not on file (Home) Address: [address] [place] [address] [place] [address] Payer ID:Not on file Group ID:Not on file Type:Self Pay Address: [facility] MANAGED MEDICARE ADV Care Teams Decorator Inspector Relationship Specialty Start Date End Date Ruddy Yang MD PCP - General 07/08/20
--- OUTSIDE RECORDS SUMMARY | 2025-02-01 13:46 | XMS_ITS | Data Portability ---
Author Organization [facility], Main Office Address [address] [place] [address] Care Team Providers Care Thread Drawer Name Role Phone LYNDSAY BERNARD Primary Care Provider CHUCHO MIRANDA Energy Project Engineer [phone] Assessment No assessment recorded. Plan of Treatment [...] By Organization Details Last Modified Time 08/06/2024 [id number] it is unknown whether not he will pass his cardiac clearance and his son is concerned about the risk were dean in any case. We will set up open reduction nasal fracture until a decision is established [facility] Not available 08/06/2024 12:42:45 Reason for Referral None Reported. Problems Name Problem SNOMED Code Status Onset Date Resolution Date Notes Provider Name and Address Organization Details Recorded Time Closed fracture of nasal bones 40058859 Active 024 Glen Mayen MD [address], [address] , [facility] 12:42:25 Problem Notes None recorded. Procedures Surgical History Date Name Laterality Status Provider Name and Address Organization Details Recorded Time 08/26/19 13 cholecystectomy completed Malorie Elizabeth RN [facility] 08/06/2024 17:58:37 Imaging Results None recorded. Procedure Notes None recorded. Medical Equipment None Reported. Allergies Allergen ID Allergen Name Allergen Category Reaction Reaction Severity Criticality Documentation Date Start Date Code Code System Note Provider Name and Address Organization Details Recorded Time 30905 Oxycontin medicatio n Not available Not available Not available 08/06/2024 73985 6 RxNorm Malorie Elizabeth RN null, [place] [facility] 4 12:26:30 Medications Name Sig Start [...] Address Organization Details Last Updated DateTime 08/06/2024 33650.92 g 26.4 kg/m2 172.72 cm 98 [degF] Malorie Elizabeth RN [facility] [employer] 08/06/2024 12:24:19 Social History None recorded. Functional [...] SNOMED-CT Code Diagnosis ICD10 Code Diagnosis Note [id number] Glen Mayen MD [facility] [place] [address] [place] [address] 08/06/2024 11:56:02 08/20/2024 10:43:43 Closed fracture of nasal bones 27101465 S02.2XXA Health Concerns Section Related Observation LastModified by Organization Detai ls LastModified Time None Recorded Concern Status LastModified by Organization Details LastModified Time None Recorded Advance Directives Directive None Recorded Payers Encounter Date Sequence Insurance Name Policy Number Policy De Jesus Covered Member ID De Jesus Member ID Guarantor Name 08/06/2024 1 [facility] (MEDICARE REPLACEMENT/A DVANTAGE - HMO) [id number] Jovan Rodas [id number] Jovan Rodas Notes Date Note Type Note Provider Name and Address Organization Details Recorded Time 08/06/2024 text/html This patient fel l and fractured his nose. There is a prominent external visible displacement of his nasal bones. He does have a significant cardiac history. Glen Mayen MD [address] [place] [address], [place] [address], [place], [address], [facility] [employer] 08/06/2024 12:43:01
--- OUTSIDE RECORDS SUMMARY | 2025-02-01 13:46 | XMS_ITS | Clinical Summary ---
Author Organization [facility] [place] [place] [address] [facility] [address] Address [address] [place] [address] Care Team Providers Care Poultry Service Technician Name Role Phone Ruddy Yang MD Primary Care Provider [phone] Allergies Active Allergy Reactions Criticality Noted Date [...] tablet/capsu le (20 mEq total) by mouth lawnmower mechanic before breakfast 09/26/19 24 025 Discontinued(St op Taking at Discharge) Active Problems Problem Noted Date Diagnosed Date Occult GI bleeding 01/21/2025 GIB (gastrointestinal bleeding) 01/20/2025 Severe anemia 01/20/2025 Elective replacement of impl antable cardioverter-defibrillator (ICD) battery required 10/01/2023 Sensorineural hearing loss (SNHL) of both ears 1 09/02/2022 Assessment & Plan (07/03/2023 10:35 AM BACKBREAKER): Hearing test Flonase 2 sprays into each [...] 07/03/2023 Assessment & Plan (07/03/2023 10:35 AM BACKBREAKER): Hearing test Flonase 2 sprays into each [...] (07/11/2022): Added automatically from request for surgery [id number] Pain associated with wound 06/28/2022 S/P TAVR (transcatheter aortic valve replacement ) 05/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 Dx; CHF, SSS. Afib, AV Node Ablation. DOI 10/28/2023- Lynette. Chronic leads 05/25/2015. [employer] remote monitoring. LV lead is a Ice [employer] lead and therefore the device is Not MRI conditional d/t [employer] products. Dr Elida Beltran-original device implanter in 2014. Osteoarthritis of lumbar spine 08/10/2015 Hypertension 01/29/2014 Overview (11/30/2016): High blood pressure Chronic coronary artery disease 01/29/2014 Overview (11/30/2016): Coronary artery disease Chronic obstructive pulmonary disease 01/29/2014 Overview (11/30/2016): COPD Hypercholesterolemia 01/29/2014 Overview (11/30/2016): High cholesterol Lumbago 02/04/2009 Encounters Date Type Department Care Team Description 01/29/2025 Telephone [facility] Gastroenterology at [address] [place] [address] Yamel Salguero 01/29/2025 Results Follow-Up [facility] Gastroenterology at [address] [place] [address] Karey Dong MD Surgical pathology 01/22/2025 12:30 PM CDT Anesthesia Event [address] [address] Romulo Agee MD 01/22/2025 12:00 PM CDT - 01/22/2025 12:50 PM CDT Surgery [address] [address] Karey Dong MD COLON CONTROL BLEEDING 01/20/2025 7:02 PM CDT - 01/23/2025 3:47 PM CDT Hospital Encounter [address] [address] Rosemary Kidd, DO Velez, MD Michelle Croft Jelena, MD Nations, Matthew Austin, DO Kim, Eileen H., MD Severe anemia [D64.9] (Primary Dx); Gastrointestinal hemorrhage, unspecified gastrointestinal hemorrhage type; Occult GI bleeding; Juxtarenal abdominal aortic aneurysm (AAA) without rupture; Severe anemia Discharge Disposition: Discharge to home or self care 01/07/2025 1:00 PM CDT Office Visit [facility] [address] [place] [address] [place] [phone] Kary Rayo NP 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 heart failure (HCC) (Primary Dx); 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; Chronic coronary artery disease; Permanent atrial fibrillation (HCC); Primary hypertension; Hypercholesterolemia; S/P TAVR (transcatheter aortic valve replacement) 01/06/2025 Orders Only [facility] [address] [facility] [address] [place] [phone] Iker Ponce MD 01/04/2025 8:00 AM CDT Ancillary Procedure [facility] [address] [place] [address] [place] [phone] ICD (implantable cardioverter-defibrill ator) in place; Permanent atrial fibrillation (HCC); 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; S/P AV josué ablation; Congestive heart failure, unspecified HF chronicity, unspecified heart failure type (HCC) 01/04/2025 Telephone [facility] [address] [place] [address] [place] [phone] Jarett Yousif MD 12/30/2024 10:00 AM CDT Ancillary Procedure [facility] [address] [place] [address] [place] [phone] Longstanding persistent atrial fibrillation (HCC); SSS (sick sinus syndrome) (HCC); Congestive heart failure, unspecified HF chronicity, unspecified heart failure type (HCC); 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; History of atrioventricular josué ablation 12/30/2024 Orders Only [facility] [address] [place] [phone] Jarett Yousif MD ICD (implantable cardioverter-defibrill ator) in place (Primary Dx); Permanent atrial fibrillation (HCC); 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; S/P AV josué ablation; Congestive heart failure, unspecified HF chronicity, unspecified heart failure type (HCC) 12/29/2024 Telephone [facility] [address] [place] [phone] Jarett Yousif MD 12/04/2024 11:30 AM CDT Office Visit [facility] [address] [place] [address] [place] [phone] Letitia Kumar NP Coronary artery disease of [place] heart with stable angina pectoris, unspecified vessel or lesion type (Primary Dx); 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; Permanent atrial fibrillation (HCC); Chronic anticoagulation 11/24/2024 8:45 AM CDT Ancillary Procedure [facility] [address] [place] [phone] 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 (Primary Dx); Cardiomyopathy, unspecified type (HCC); SSS (sick sinus syndrome) (HCC); Permanent atrial fibrillation (HCC); Congestive heart failure, unspecified HF chronicity, unspecified heart failure type (HCC) 11/09/2024 8:45 AM CDT Office Visit [facility] Cardiology [address] [place] [address] Jarett Yousif MD Biventricular ICD [...] uit: 2008 Smokeless Tobacco: Former Chew Quit: 1970 Tobacco Cessation:Counseling Given: Not Answered Alcohol Use Standard Drinks/Week Comments No 0 (1 standard drink = 0.6 oz pur e alcohol) [facility] Utilities Answer Date Recorded In the past 12 months has th e electric, gas, oil, or water company threatened to shut off services in your [...] often do you attend chur ch or sikh services? Never 01/21/2025 Do you belong to any clubs o r organizations such as episcopalian groups, unions, fraternal or athletic groups, or [...] any time in the past 12 m [facility], were you homeless or living in a chcf (including now)? No 01/21/2025 Personal Safety Answer Date Recorded Have you ever been in or are you currently in a harmful physical or emotional relationship or is someone making you feel afraid or unsafe? Denies 01/20/2025 Sex and Gender Information Value Date Recorded Sex Assigned at Not on file Legal Sex Male 1:59 AM BACKBREAKER Gender Identity Not on file Sexual Orientation [...] 06/28/2030 06/28/2020 Medical Devices Implanted Type Area Contract Specialist Device Identifier Shelf Expiration Date Model / Serial / Lot Icd ICD Heart Pacemaker Pacemaker Heart Description:PACEMAKER/ICD Stent Implanted:Qty: 2 Stent Heart [employer] Defib Cardiac [id number] Upham Hf Df4 Is-4 Is-1 Cnctr [id number] - [id number] - [id number] Implanted:Qty: 1 on 10/28/2023 by Eric Ojeda MD at [facility] [employer] [facility] 08/25/2025 [id number] / [id number] / Procedures Procedure Name Priority Date/Time Associated [...] Hemoglobin and hematocrit (01/23/2025 11:28 AM CDT) Pathologist [facility] Hgb 7.7(L) 13.0 - 17.5 g/dL Hct 24.5(L) 38.9 - 50.3 % [facility] (IRENA) Blood 01/23/2025 11:2 8 AM CDT 01/23/2025 11:31 AM CDT us Zenia Vázquez MD LAB BLOOD ORDERABLES Final Resu lt [facility] (IRENA) 1 [facility] Department [place] [address] * (ABNORMAL) eGFR (01/23/2025 4:04 AM CDT) Pathologist [facility] eGFR 52(L) >=60 mL/min/1. 73 m2 Comment: [...] LAB BLOOD ORDERABLES Fi nal Result [facility] (AMERICUS) 1 [facility] Department of Laboratories [place], [place] [phone] * (ABNORMAL) Differential, auto (01/23/2025 4:04 AM [...] Neutrophil pct 69.6 % [facility] ([place]ER[place]) Comment: Interpretive Data Percent cell count reference [...] revised on 2017. Monocyte pct 13.5 % [facility] ([place]) Comment: Interpretive Data [...] on 2017. Basophil pct 0.2 % [facility] ([place]) Comment: Interpretive Data Percent cell count reference ranges are not reported, since discordance with absolute values may lead to misinterpretation of CBC data. Current Interpretive Data was last revised on 2017. Blood 01/23/2025 4:04 AM CDT 01/23/2025 4:59 AM CDT us Celeste Velez MD LAB BLOOD ORDERABLES Fi nal Result [facility] (IRENA) 1 [facility] Department of Laboratories [place], [place] [id number] * (ABNORMAL) CBC with auto differential (01/23/2025 4:04 AM CDT) WBC 5.55 3.80 - 9.90 K/cumm Hgb 7.2(L) 13.0 - 17.5 g/dL [facility] (IRENA) Hct 22.7(L) 38.9 - 50.3 % [...] RDW SD 62.5(H) 35.7 - 48.1 fL [facility] ([facility]) NRBC abs 0.00 0.00 - 0.01 K/cumm [facility] ([facility]) Blood 01/23/2025 4:04 AM CDT 01/23/2025 4:59 AM CDT Celeste Velez MD LAB BLOOD ORDERABLES Fi nal Result [facility] (AMERICUS) 1 [facility] [place] [address] * Magnesium (01/23/2025 4:04 AM CDT) Magnesium 1.7 1.4 - 2.5 mg/dL Blood 01/23/2025 4:04 AM CDT 01/23/2025 4:59 AM CDT Celeste Velez MD LAB BLOOD ORDERABLES Fi nal Result [facility] (AMERICUS) 1 [facility] [place] [address] * (ABNORMAL) Comprehensive metabolic panel (01/23/2025 4:04 [...] MD LAB BLOOD ORDERABLES Fi nal Result [facility] IRENA 1 [facility] Department [place] [address] * EGD (01/22/2025 11:51 AM CDT) Anatomical Region Laterality Modality Other Narrative Procedure Note Karey Dong MD - 01/22/2025 11:51 AM CDT [facility] Patient Name: Elida Rodas Procedure Date: 01/22/2025 11:51 AM Date of : 1940 Admit Type: Inpatient Age: 84 Gender: Male Attending MD: Karey Dong M.D. Room: [facility] ENDOSCOPY ROOM 2 Note Status: Finalized Patient [...] procedure were verified by the physician, the grain oilseed or pasture farm manager and the cathodic protection technician in the endoscopy suite. Mental Status [...] passed under direct vision. The Endoscope [id number]-H190 [id number] was introduced through the mouth, and advanced [...] 11:51 AM Procedure Code(s): --- Professional --- 23227, Esophagogastroduodenoscopy, flexible, transoral; with biopsy, single or multiple --- Technical --- 07348, Esophagogastroduodenoscopy, flexible, transoral; with biopsy, single or multiple Diagnosis Code(s): --- Professional --- K21.00, Gastro-esophageal reflux disease with esophagitis, without bleeding D50.0, Iron deficiency anemia secondary to blood loss (chronic) K92.1, Melena (includes Hematochezia) --- Technical --- K21.00, Gastro-esophageal reflux disease with esophagitis, without bleeding D50.0, Iron deficiency anemia secondary to blood loss (chronic) K92.1, Melena (includes Hematochezia) CPT copyright 2020 [employer]. All rights reserved. The codes documented in this report are preliminary and upon aoc plans intelligence officer reviewmay be revised to meet current compliance requirements. Recognized by the [employer] for promoting quality in endoscopy us Karey Dong MD ENDOSCOPY PROCEDURES Final Resul t * Colonoscopy (01/22/2025 11:49 AM CDT) Anatomical Region Laterality Modality Other Narrative Procedure Note Karey Dong MD - 01/22/2025 11:49 AM CDT [facility] Patient Name: Elida Rodas Procedure Date: 01/22/2025 11:49 AM Date of : 1940 Admit Type: Inpatient Age: 84 Gender: Male Attending MD: Karey Dnog M.D. Room: [facility] ENDOSCOPY ROOM 2 Note Status: Finalized Patient [...] coagulation (APC). Clip (MRconditional) was placed. Clip legal mediator: [id number]. - One 8 mm polyp in the [...] procedure were verified by the physician, the grain oilseed or pasture farm manager and the cathodic protection technician in the endoscopy suite. Mental Status [...] under direct vision. The Pediatric Colonoscope [id number]-[id number] was introducedthrough the anus and advanced to [...] clip was successfully placed (MR conditional). Clip legal mediator: [employer]. There was no bleeding at the end [...] 11:49 AM Procedure Code(s): --- Professional --- 32286, Colonoscopy, flexible; with control of bleeding, any method --- Technical --- 23812, Colonoscopy, flexible; with control of bleeding, any [...] perforation orabscess without bleeding CPT copyright 2020 [employer]. All rights reserved. The codes documented in this report are preliminary and upon aoc plans intelligence officer reviewmay be revised to meet current compliance requirements. Recognized by the [employer]intestinal [employer] for promoting quality in endoscopy Karey Dong MD ENDOSCOPY PROCEDURES Final Resul t * Surgical pathology (01/22/2025 9:52 AM CDT) Tissue ([place], Biopsy) 01/22/2025 12:48 PM CDT Narrative [facility] (IRENA) - 01/26/2025 2:52 PM CDT EPIC results best viewed via link to PDF [facility] Department of Pathology [address] [place] [id number] Note to Patients: This report may contain [...] Final Report Patient Name: ELIDA RODAS Address: [address] [place] [address] Gender: M : 1940 (Age: 84) Service: Medical Location: [facility] Hospital #: [id number] Patient Type: [facility] Taken: 01/22/2025 Received: 01/25/2025 Accessioned: 01/25/2025 Reported: [...] determined by the Surgical Pathology Department at [facility] as part of an ongoing quality systems engineer program and in compliance with federally mandated [...] characteristics determined by the Surgical Pathology Department [facility]. It has not been cleared or approved by the U. S. Food and Drug Administration. Note for decalcified specimens: This assay has not been validated on decalcified tissues. Results should be interpreted with caution given the possibility of false negativity on decalcified specimens Karey Dong MD LAB PATHOLOGY ORDERABLES Final R esult PATHOLOGY [facility] ([address] [address] * (ABNORMAL) eGFR (01/22/2025 4:18 AM CDT) [...] BLOOD ORDERABLES Fi nal Result [facility] (AMERICUS) 1 [facility] Department [place] [address] * Differential, auto (01/22/2025 4:18 AM CDT) [...] Neutrophil pct 65.8 % [facility] ([place]) Comment: Interpretive Data Percent cell count reference ranges are not reported, since discordance with absolute values may lead to misinterpretation of CBC data. Current Interpretive Data was last revised on 2017. Imm gran pct 0.0 % [facility] (IRENA) Comment: Interpretive Data [...] us Celeste Velez MD LAB BLOOD ORDERABLES [facility] Result [facility] ([place]) 1 [facility] Department [place] [address] * (ABNORMAL) CBC with auto differential (01/22/2025 [...] Fi nal Result [facility] (IRENA) 1 [place] [address] * Magnesium (01/22/2025 4:18 AM CDT) Magnesium 1.7 1.4 - 2.5 mg/dL Blood 01/22/2025 4:18 AM CDT 01/22/2025 5:29 AM CDT Celeste Velez MD LAB BLOOD ORDERABLES Fi nal Result Performing Organization Address [facility] de Phone Number [facility] (IRENA) 1 [place] [address] * (ABNORMAL) Comprehensive metabolic panel (01/22/2025 4:18 AM CDT) Sodium 138 135 - 145 mmol/L Potassium, pl 3.3 3.3 - 4.9 mmol/L [facility] (IRENA) Chloride 103 97 - 110 mmol/L [facility] (IRENA) CO2 20(L) 22 - 32 mmol/L [facility] (IRENA) Anion gap 15 2 - 15 mmol/L [facility] (IRENA) BUN 22 6 - 25 mg/dL [facility] (IRENA) Creatinine 1.40(H) 0.80 - 1.30 mg/dL [facility] (IRENA) Glucose 111 70 - 199 mg/dL [facility] (IRENA) Comment: Interpretive Data Fasting glucose [...] BLOOD ORDERABLES Fi nal Result [facility] (AMERICUS) [address] [place] [address] [employer] [place] [address] * (ABNORMAL) Hemoglobin and hematocrit (01/21/2025 12:44 PM CDT) Pathologist [facility] Hgb 9.2(L) 13.0 - 17.5 g/dL Hct 28.3(L) 38.9 - 50.3 % [facility] (IRENA) Blood 01/21/2025 12:4 4 PM CDT 01/21/2025 12:48 PM CDT Celeste Velez MD LAB BLOOD ORDERABLES Fi nal Result [facility] (IRENA) 1 [facility] [place] [address] * (ABNORMAL) Protime-INR (01/21/2025 12:44 PM CDT) PT 17.8(H) 9.7 - 13.0 sec [facility] (IRENA) INR 1.63(H) 0.90 - 1.20 [facility] (IRENA) Comment: Interpretive data Oral anticoagulant therapeutic ranges: Venous thromboembolism prophylaxis or treatment: 2.0-3.0 CARDIOLOGY Standard range: 2.0-3.0 High-intensity range: 2.5-3.5 Refer to indication-specific guidelines for appropriate target ranges for prosthetic heart valve replacement. Current interpretive data was last revised on 2019. Blood 01/21/2025 12:4 4 PM CDT 01/21/2025 12:48 PM CDT Kailyn FAIRCHILD LAB BLOOD ORDERABLES Fin al Result [facility] (AMERICUS) 1 [facility] Department [place] [address] * (ABNORMAL) eGFR (01/21/2025 5:39 AM CDT) [...] BLOOD ORDERABLES Fi nal Result [facility] (AMERICUS) 1 [facility] Department [place] [address] * Differential, auto (01/21/2025 5:39 AM CDT) Neutrophil abs 2.78 1.50 - 6.50 K/cumm Imm gran abs 0.01 0.00 - 0.10 K/cumm [facility] ([facility]) Lymphocyte abs 1.04 0.80 - 3.30 K/cumm [facility] ([place]) Monocyte abs 0.60 0.20 - 0.80 K/cumm [facility] ([place]) Eosinophil abs 0.12 0.00 - 0.50 K/cumm [facility] ([place]) Basophil abs 0.01 0.00 - 0.10 K/cumm [facility] ([place]) Neutrophil pct 61.0 % [facility] ([place]) Comment: Interpretive Data Percent cell count reference ranges are not reported, since discordance with absolute values may lead to misinterpretation of CBC data. Current Interpretive Data was last revised on 2017. Imm gran pct 0.2 % [facility] ([place]ER[place]) Comment: Interpretive Data Percent cell count reference ranges are not reported, since discordance with absolute values may lead to misinterpretation of CBC data. Current Interpretive Data was last revised on 2017. Lymphocyte pct 22.8 % [facility] (AMER[place]) Comment: Interpretive Data Percent cell count reference ranges are not reported, since discordance with absolute values may lead to misinterpretation of CBC data. Current Interpretive Data was last revised on 2017. Monocyte pct 13.2 % [facility] (AMERICUS) Comment: Interpretive Data Percent cell count reference ranges are not reported, since discordance with absolute values may lead to misinterpretation of CBC data. Current Interpretive Data was last revised on 2017. Eosinophil pct 2.6 % [facility] (AMERICUS) Comment: Interpretive Data Percent cell count reference ranges are not reported, since discordance with absolute values may lead to misinterpretation of CBC data. Current Interpretive Data was last revised on 2017. Basophil pct 0.2 % [facility] (IRENA) Comment: Interpretive Data Percent cell count reference ranges are not reported, since discordance with absolute values may lead to misinterpretation of CBC data. Current Interpretive Data was last revised on 2017. Blood 01/21/2025 5:39 AM CDT 01/21/2025 5:52 AM CDT Celeste Velez MD LAB BLOOD ORDERABLES Fi nal Result Performing Organization Address City/[facility]/ZIP Co de Phone Number [facility] (IRENA) 1 [facility] [place] [address] * Iron profile w/ IBC (01/21/2025 5:39 AM CDT) Iron 98 50 - 150 mcg/dL TIBC 285 250 - 400 mcg/dL [facility] ([place]) Transferrin saturation 34 20 - 50 % [facility] ([place]) Blood 01/21/2025 5:39 AM CDT 01/21/2025 5:52 AM CDT Celeste Velez MD LAB BLOOD ORDERABLES Fi nal Result Performing Organization Address City/[facility]/ZIP Co de Phone Number [facility] (IRENA) 1 [facility] [place] [address] * (ABNORMAL) CBC with auto differential (01/21/2025 5:39 AM CDT) WBC 4.56 3.80 - 9.90 K/cumm Hgb 8.1(L) 13.0 - 17.5 g/dL [facility] ([place]) Hct 25.3(L) 38.9 - 50.3 % [facility] ([place]) Plt 105(L) 150 - 400 K/cumm [facility] ([place]) MPV 9.9 9.1 - 12.3 fL [facility] ([place]) RBC 2.59(L) 4.30 - 5.80 M/cumm [facility] ([place]) MCV 97.7(H) 81.3 - 96.4 fL [facility] ([place]) MCH 31.3 27.1 - 33.3 pg [facility] ([place]) MCHC 32.0(L) 32.3 - 35.7 g/dL [facility] (IRE[place]) RDW CV 17.4(H) 11.1 - 14.9 % [facility] (IRE[place]) RDW SD 62.3(H) 35.7 - 48.1 fL [facility] (IRENA) NRBC abs 0.00 0.00 - 0.01 K/cumm [facility] (IRENA) Blood 01/21/2025 5:39 AM CDT 01/21/2025 5:52 AM CDT Celeste Velez MD LAB BLOOD ORDERABLES Fi nal Result Performing Organization Address City/[facility]/ZIP Co de Phone Number [facility] (AMERICUS) [address] [place] [address] [place] [address] * (ABNORMAL) Hemoglobin and hematocrit (01/21/2025 5:39 AM CDT) Hgb 8.1(L) 13.0 - 17.5 g/dL Hct 25.1(L) 38.9 - 50.3 % [facility] (IRENA) Blood 01/21/2025 5:39 AM CDT 01/21/2025 5:52 AM CDT Celeste Velez MD LAB BLOOD ORDERABLES Fi nal Result [facility] (AMERICUS) 1 [facility] [place] [address] * Magnesium (01/21/2025 5:39 AM CDT) Magnesium 1.8 1.4 - 2.5 mg/dL Blood 01/21/2025 5:39 AM CDT 01/21/2025 5:52 AM CDT Celeste Velez MD LAB BLOOD ORDERABLES Fi nal Result [facility]) [address] [place] [address] [place] [address] * Lactate dehydrogenase (LD) (01/21/2025 5:39 AM CDT) Lactate dehydrogenase (LDH) 224 100 - 250 Units/L Blood 01/21/2025 5:39 AM CDT 01/21/2025 5:52 AM CDT Celeste Velez MD LAB BLOOD ORDERABLES Fi nal Result Performing Organization Address [facility] Co de Phone Number [facility] (AMERICUS) [address] [place] [address] [place] [address] * Haptoglobin (01/21/2025 5:39 AM CDT) Haptoglobin 68 30 - 200 mg/dL Comment:Testing performed by : [facility], [address] [place] [address], [facility], [facility] Blood 01/21/2025 5:39 AM CDT 01/21/2025 9:08 AM CDT Celeste Velez MD LAB BLOOD ORDERABLES Fi nal Result Performing Organization Address City/[facility] Co de Phone Number [facility] (AMERICUS) [address] [place] [address] [place] [address] * Folate (01/21/2025 5:39 AM CDT) Folic acid >20.0 >=5.0 ng/mL Comment:Slightly Hemolyzed S pecimen. Results may be affected. Blood 01/21/2025 5:39 AM CDT 01/21/2025 5:52 AM CDT Celeste Velez MD LAB BLOOD ORDERABLES Fi nal Result [facility] (AMERICUS) 1 [facility] [place] [address] * Ferritin (01/21/2025 5:39 AM CDT) Pathologist [facility] Ferritin 61 30 - 400 ng/mL Blood 01/21/2025 5:39 AM CDT 01/21/2025 5:52 AM CDT Celeste Velez MD LAB BLOOD ORDERABLES Fi nal Result JUNIOR MCNAMARA (AMERICUS) 1 [facility] [place] [address] * Vitamin B12 (01/21/2025 5:39 AM CDT) [facility] Vitamin B12 688 230 - 1,250 pg/mL Blood 01/21/2025 5:39 AM CDT 01/21/2025 5:52 AM CDT Celeste Velez MD LAB BLOOD ORDERABLES Fi nal Result JUNIOR MCNAMARA (AMERICUS) 1 [facility] [place] [address] * (ABNORMAL) Comprehensive metabolic panel (01/21/2025 5:39 AM CDT) [facility] Sodium 140 135 - 145 mmol/L Potassium, pl 4.1 3.3 - 4.9 mmol/L [facility] ([place]) Chloride 104 97 - 110 mmol/L [facility] ([place]) CO2 23 22 - 32 mmol/L [facility] ([place]) Anion gap 13 2 - 15 mmol/L [facility] ([place]) BUN 25 6 - 25 mg/dL [facility] ([place]) Creatinine 1.49(H) 0.80 - 1.30 mg/dL [facility] ([place]) Comment:Icteric sample, test results may [...] AM CDT 01/21/2025 5:52 AM CDT us Ceelste Velez MD LAB BLOOD ORDERABLES Fi nal Result [facility] ([place]) 1 [facility] Department [place] [address] * Urinalysis reflex to microscopic and culture [...] tendency for uric acid stone formation. Source: [facility] [employer] Current Interpretive Data was last revised on 2017 Protein, ur ql Negative Negative [facility] ([place]) Glucose, ur ql Negative Negative CERNE R [...] MICROBIOLOGY - GENE RAL ORDERABLES Final Result JUNIOR MCNAMARA (AMERICUS) 1 [facility] [place] [address] * Transfuse RBC (01/21/2025 4:29 AM CDT) Blood Celeste Velez MD BLOOD TRANSFUSION ORDER AVEL Final Result JUNIOR MCNAMARA ([place]) 1 [facility] [place] [address] * Prepare RBC: 1 Units (01/21/2025 1:23 AM CDT) Units requested 1 Units requested Ready [facility] WILLIS [facility] ([place]) Blood 01/21/2025 1:23 AM CDT 01/21/2025 1:23 AM CDT Narrative [facility] ([place]) - 01/21/2025 1:24 AM CDT Are special requirements needed? (All products are leukoreduced and CMV- safe)->No Celeste Velez MD BLOOD BANK PRODUCT ORDE RABKENIA Final Result Performing Organization Address [facility]/ZIP Co de Phone Number JUNIOR MCNAMARA ([place]) 1 [facility] [place] [address] * Prepare RBC (01/21/2025 1:16 AM CDT) Unit Number [id number] Product code [id number] JUNIOR MCNAMARA ([place]ERIC[place]) Blood Expiration Date [id number] [facility] ([place]) Product Blood Type (for scanning) 6200 [facility] ([place]) Product Blood Type APOS JUNIOR MCNAMARA ([place]) Dispense Status DISPENSED JUNIOR MCNAMARA ([place]) Celeste Velez MD BLOOD BANK PRODUCT ORDE RABKENIA Final Result Performing Organization Address [facility] Co de Phone Number JUNIOR MCNAMARA (AMERICUS) [address] [place] [address] [place] [address] * (ABNORMAL) Hemoglobin and hematocrit (01/21/2025 12:01 AM CDT) Hgb 6.8(L) 13.0 - 17.5 g/dL Hct 21.1(L) 38.9 - 50.3 % GRADYKIERA MCNAMARA (AMERICUS) Blood 01/21/2025 12:0 1 AM CDT 01/21/2025 12:12 AM CDT Celeste Velez MD LAB BLOOD ORDERABLES Fi nal Result JUNIOR MCNAMARA (AMERICUS) 1 [facility] [place] [address] * CT Chest Abdomen Pelvis WO Contrast [...] Arnold Garduno M.D. KT: REDD Report ID: [id number] Reading Location: [id number] Procedure Note Arnold Garduno MD - 01/21/2025 [...] Arnold Garduno M.D. KT: REDD Report ID: [id number] Reading Location: [id number] Celeste Velez MD IMG CT PROCEDURES Final Result * ECG 12 lead (01/20/2025 9:11 PM CDT) 01/20/2025 9:11 PM CDT Narrative [facility] - 01/21/2025 2:35 PM CDT Vent Rate: 75 bpm RR Interval: 790 msec NE Interval: 0 msec QRS Duration: 163 msec QT Interval: 480 msec QTC Interval: 510 msec P-R-T [place]: [id number] - -86 - 89 degrees IMPRESSION: ELECTRONIC VENTRICULAR PACEMAKER WITH OCCASIONAL PVCS ABNORMAL RHYTHM ECG PVCS NEW Electronically Signed By: Corina Valentin MD Celeste Velez MD ECG ORDERABLES Final R esult [facility] * ABO / Rh Confirmation Testing (01/20/2025 8:20 PM CDT) ABO/Rh Confirmation AB Positive [facility] Blood 01/20/2025 8:20 PM CDT 01/20/2025 8:23 PM CDT Celeste Velez MD LAB BLOOD ORDERABLES Fi nal Result [facility]IOR [facility] (AMERICUS) 1 [facility] Department [place] [address] [facility] * (ABNORMAL) Pro B-type natriuretic peptide [...] ORDERABLES Fi nal Result Performing Organization Address City/State/[facility] Co de Phone Number [facility] AMERICUS) 3 [facility] Department of Laboratories [place] [id number] * (ABNORMAL) Troponin T high-sensitivity (01/20/2025 7:21 [...] ORDERABLES Fi nal Result Performing Organization Address City/[facility]/ZIP Co de Phone Number JUNIOR MCNAMARA (AMERICUS) 1 [facility] Department [place] [address] * (ABNORMAL) eGFR (01/20/2025 7:21 PM CDT) Pathologist [facility] eGFR 49(L) >=60 mL/min/1. 73 m2 Comment: [...] ORDERABLES Fi nal Result Performing Organization Address City/[facility]/ZIP Co de Phone Number JUNIOR MCNAMARA (IRE[place]) 1 [facility] [place] [address] * (ABNORMAL) Differential, auto (01/20/2025 7:21 PM CDT) Pathologist [facility] Neutrophil abs 3.30 1.50 - 6.50 K/cumm [...] Lymphocyte pct 15.5 % [facility] ([place]) Comment: Interpretive Data Percent cell count reference ranges are not reported, since discordance with absolute values may lead to misinterpretation of CBC data. Current Interpretive Data was last revised on 2017. Monocyte pct 11.3 % [facility] ([place]) Comment: Interpretive Data Percent cell count reference [...] 2017. Basophil pct 0.4 % [facility] ([place]) Comment: Interpretive Data Percent cell count reference ranges are not reported, since discordance with absolute values may lead to misinterpretation of CBC data. Current Interpretive Data was last revised on 2017. Blood 01/20/2025 7:21 PM CDT 01/20/2025 7:25 PM CDT us Celeste Velez MD LAB BLOOD ORDERABLES Fi nal Result JUNIOR ANDERS (AMERICUS) 1 [facility] Department [place] [address] * (ABNORMAL) CBC with auto differential (01/20/2025 [...] Fi nal Result [facility] ([place]) 1 [facility] [place] [address] * ABO/Rh (01/20/2025 7:21 PM CDT) Pathologist [facility] ABO/Rh AB Positive Blood 01/20/2025 7:21 PM CDT 01/20/2025 7:25 PM CDT Narrative [facility] ([place]) - 01/20/2025 8:09 PM CDT Has the patient had Daratumumab or Isatuximab in the past 6 months?->Unknown Celeste Velez MD LAB BLOOD BANK TEST ORD ERABLES Final Result JUNIOR MCNAMARA ([place]ERICUS) 1 [facility] [place] [address] * Crossmatch (01/20/2025 7:21 PM CDT) Crossmatch Compatible JUNIOR Cruz (AMERICUS) Unit number for crossmatch [id number] [facility]IOR [facility] ([place]US) Blood 01/20/2025 7:21 PM CDT 01/20/2025 7:25 PM CDT Celeste Velez MD LAB BLOOD BANK TEST ORD ERABLES Final Result Performing Organization Address [facility] Co de Phone Number JUNIOR [facility] (AMERICUS) [address] [place] [phone] * Antibody screen (01/20/2025 7:21 PM CDT) Kylee, indirect, Gel Interpretation Negative ABSC Blood 01/20/2025 7:21 PM CDT 01/20/2025 7:25 PM CDT Narrative [facility]IOR [facility] ([place]) - 01/20/2025 8:09 PM CDT Has the patient had Daratumumab or Isatuximab in the past 6 months?->Unknown Celeste Velez MD LAB BLOOD BANK TEST ORD ERABLES Final Result Performing Organization Address City/[facility]/ZIP Co de Phone Number JUNIOR [facility] ([place]ERICUS) 1 [place] [address] * Phosphorus (01/20/2025 7:21 PM CDT) Phosphorus, pl 3.1 2.3 - 4.5 mg/dL Blood 01/20/2025 7:21 PM CDT 01/20/2025 7:25 PM CDT Celeste Velez MD LAB BLOOD ORDERABLES Fi nal Result JUNIOR MCNAMARA ([place]) 1 [facility] [place] [address] * Magnesium (01/20/2025 7:21 PM CDT) Magnesium 1.7 1.4 - 2.5 mg/dL Blood 01/20/2025 7:21 PM CDT 01/20/2025 7:25 PM CDT Celeste Velez MD LAB BLOOD ORDERABLES Fi nal Result Performing Organization Address [facility] Co de Phone Number JUNIOR MCNAMARA (IRE[place]) 1 [facility] [place] [address] * (ABNORMAL) Comprehensive metabolic panel (01/20/2025 7:21 PM CDT) Sodium 137 135 - 145 mmol/L Potassium, pl 4.1 3.3 - 4.9 mmol/L [facility] ([place]) Chloride 101 97 - 110 mmol/L [facility] ([place]) CO2 23 22 - 32 mmol/L [facility] ([place]) Anion gap 14 2 - 15 mmol/L [facility] ([place]) BUN 26(H) 6 - 25 mg/dL [facility] ([place]) Creatinine 1.43(H) 0.80 - 1.30 mg/dL [facility] ([place]) Glucose 120 70 - 199 mg/dL [facility] ([place]) Comment: Interpretive Data Fasting glucose [...] Fi nal Result JUNIOR MCNAMARA ([place]) 1 [facility] [place] [address] * BMP - Basic Metabolic Panel (7) (01/05/2025 9:41 AM CDT) Historical Provider LAB BLOOD ORDERABLES Lucia l Result * DEVICE CHECK - REMOTE (01/04/2025 1:06 PM CDT) Anatomical Region Laterality Modality Other Narrative 01/08/2025 10:41 AM CDT Yo Upham BIV ICD. Dx; CHF, SSS. Afib, AV Node Ablation. DOI 10/28/2023-Lynette. Chronic leads 05/25/2015. [place] remote monitoring. Unscheduled remote due to patient [...] Lasix, potassium, amongst others. See scanned report. [place] remote follow-up 04/06/2025. ROV with Dr. Yousif 05/20/2025. Ning Johansen, RN us Jarett Yousif MD [facility] C[facility] SERVICES PROC EDURUST Final Result * DEVICE CHECK - IN OFFICE (12/30/2024 9:48 AM CDT) Anatomical Region Laterality Modality Other Narrative 01/08/2025 10:39 AM CDT VC VISION BIV ICD. Dx; CHF, SSS. Afib, AV Node Ablation. DOI 10/28/2023-Lynette. Chronic leads 05/25/2015. [employer] remote monitoring. LV lead is a [employer] lead and therefor the device is Not MRI conditional d/t [employer] products. Supervising MD: Dr Whittaker. Left pectoral [...] Modality Other Narrative 12/03/2024 8:25 AM CDT VC VISION BIV ICD. Dx; CHF, SSS. Afib, AV Node Ablation. DOI 10/28/2023-Kahanda. Chronic leads 05/25/2015. [place] remote monitoring. LV lead is a [employer] lead and therefore the device is Not MRI conditional d/t [employer] products. Dr Elida Beltran-original device implanter in [...] mg, Follow up: Office Pacemaker/ICD scheduled 12/30/24 [place] remote 4 months Capo Wade RN Jarett Yousif MD CV CARDIAC SERVICES PROC EDURES Final Result from Last 3 Months Insurance [facility] MEDICARE ADVANTAGE MEDICARE [facility] Address: [address] [place] [address] [facility] MEDICARE ADVANTAGE [facility] MEDICARE ADVANTAGE Advance Directives For more information, please contact: [phone] * Full Code (Latest Code Status on File) Date Activated Date Inactivated Comments 01/22/2025 11:51 AM 01/23/2025 7:53 PM * Full Code Date Activated Date Inactivated Comments 01/22/2025 11:47 AM 01/22/2025 11:51 AM * Full Code Date Activated Date Inactivated Comments 01/20/2025 7:14 PM 01/22/2025 11:47 AM Care Teams Poultry Service Technician Relationship Specialty Start Date End Date Ruddy Yang MD [address] [place] [address] PCP - General Internal Medicine 01/02/21
== END 2025-02-01 12:37 | disposition home or self-care (01) ==
LOC: CHSLAB 12:37
PROVIDERS: PCP Internal Medicine; Visit Provider Internal Medicine
DX: D64.9 Anemia, unspecified (principal)
CPT/HCPCS: 36415; 85014; 85018

== ENCOUNTER 2025-03-15 19:59 | Emergency (ER) | payer MEDICARE, SELFPAY ==
[2025-03-15] VITALS (9 sets, daily range): BP systolic 120–132; BP diastolic 74–81; PULSE 77–101; RESP 18–31; TEMP 36.1; O2SAT 93–97
--- NOTE | ~2025-03-15 | CT_ITS ---
EXAMINATION: CT brain wo con DATE: 03/15/2025 20:33 INDICATION: ams . TECHNIQUE: Computed tomography (CT) of the head was performed without intravenous contrast. The mA wa s adjusted according to patient size. Iterative reconstruction technique was employed. The dose-lengt h product was 605.33 mGy-cm. COMPARISON: 06/28/2021. FINDINGS: Acute subdural blood collection measuring up to 18 mm in greatest thickness overlying the left hemisp here. No hydrocephalus or mass. Effacement of the atrium of the left lateral ventricle. 8mm left to right midline shift. Mild left uncal herniation. No acute ischemic infarct. Unremarkable dural venous sinus attenuation. No acute osseous abnormality. Old right medial orbital wall fracture. The aerated spaces are clear. Moderate atrophy and mild chronic white matter change. Atherosclerotic intracranial calcification. Ri ght basal ganglia calcification. Focal encephalomalacia in the right hemisphere. IMPRESSION: Acute, large left subdural hemorrhage with 8 mm rightward subfalcine herniation and mild left uncal h erniation. Results reported telephonically to Dr. Barnett by Dr. Hoover at 8:48 PM on 03/15/2025. Reviewed, dictated and finalized at location K. IMPRESSION: Acute, large left subdural hemorrhage with 8 mm rightward subfalcine herniation and mild left uncal herniation. Results reported telephonically to Dr. Barnett by Dr. Hoover at 8:48 PM on 02/24.
--- NOTE | ~2025-03-15 | XR_ITS ---
EXAMINATION: XR chest 1V portable Exam Date/Time: 03/15/2025 20:20 CDT HISTORY: ams Comparison: 01/13/2025. RESULT: Lines, tubes, and devices: Left chest pacer with intact leads. Fractured sternotomy wires, in stable position. Cardiac valve replacement. Lungs and pleura: Mild diffuse reticular opacities. Bibasilar scar/atelectasis. Cardiomediastinal silhouette: Stable. Other: No acute osseous or upper abdominal finding. IMPRESSION: Mild interstitial edema. Reviewed, dictated and finalized at location K. IMPRESSION: Mild interstitial edema.
--- NOTE | 2025-03-15 20:03 | ECG_ITS ---
Test Date: 2025-03-15 20:12:58 Measurements Intervals [place] Rate: 76 P: 0 NC: 0 QRS: -69 QRSD: 189 T: 69 QT: 492 QTc: 555 Interpretive Statements ATRIAL FIBRILLATION VENTRICULAR PACED RHYTHM Compared to ECG 01/13/2025 12:02:37 ATRIAL FIBRILLATION NOW PRESENT Electronically Signed On 03-16-2025 15:56:57 CDT by Kendrick Dhaliwal M.D.
--- OUTSIDE RECORDS SUMMARY | 2025-03-15 20:03 | XMS_ITS | Encounter Summary ---
Author Organization [facility] Healthcare Address [address] [place] [address] Care Team Providers Care Grails Web Application Developer Name Role Phone Ruddy Yang MD Primary Care Provider + [phone] Encounter Details Date Type Department Care Team (Latest Contact Info) Description 02/11/2025 Results Follow-Up [facility] Medical [facility] Cardiology [address] [place] [address] [place] [phone] Kary Rayo NP [address] [facility] [address] [place] [address] Transthoracic Echo (TTE) Complete W Doppler/CF Social History Tobacco Use Types Packs/Day Years Used Date Smoking Tobacco: Former Cigarettes Q uit: 2008 Smokeless Tobacco: Former Chew Quit: 1971 Alcohol Use Standard Drinks/Week Comments No 0 (1 standard drink = 0.6 oz pur e alcohol) [facility] Utilities Answer Date Recorded In the past 12 months has [employer], gas, oil, or water [employer] threatened to shut off services in your [...] week 01/21/2025 How often do you attend [facility] or latter day services? Never 01/21/2025 Do you belong to [...] any time in the past 12 m [facility], were you homeless or living in a custodial (including now)? No 01/21/2025 Personal Safety Answer Date Recorded Have you ever been in or are you currently in a harmful physical or emotional relationship or is someone making you feel afraid or unsafe? 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
--- OUTSIDE RECORDS SUMMARY | 2025-03-15 20:03 | XMS_ITS | Clinical Summary ---
Author Organization [facility] [address] [facility] [address] Address [address] [place] [address] Care Team Providers Care Manufacturing Engineering Technician Name Role Phone Ruddy Yang MD Primary Care Provider + [phone] Allergies Active Allergy Reactions Criticality Noted Date [...] by oral route every day 0 0 01/29/2014 Active allopurinoL (ZYLOPRIM) 100 mg tabletIndication s:prevention of acute gout attack Take 1 tablet (100 mg total) by mouth 2 (two) times a day Active atorvastatin (LIPITOR) 40 mg tabletIndication s:hyperlipidemia Take 1 tablet (40 mg total) by mouth nightly Active tamsulosin (FLOMAX) 0.4 mg extended release capsuleIndicatio ns:benign prostatic hyperplasia with lower urinary tract sx Take 1 capsule (0.4 mg total) by mouth every morning Active carvediloL (COREG) 12.5 mg tabletIndication s:hypertension Take 1 tablet (12.5 mg total) by mouth 2 (two) times a day with meals Active traMADoL (ULTRAM) 50 mg tabletIndication s:Neuropathic Pain Take 1 tablet (50 mg total) by mouth 3 (three) times a day 06/06/2022 Active aspirin 81 mg enteric coated tablet Take 1 tablet (81 mg total) by mouth daily Active DULoxetine DR (CYMBALTA) 60 mg capsule Take 1 capsule (60 mg total) by mouth daily 04/20/2024 Active nortriptyline (PAMELOR) 10 mg capsule Take 1 capsule (10 mg total) by mouth 2 (two) times a day 04/30/2024 Active furosemide (LASIX) 20 mg tabletIndication s: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 heart failure (HCC) Take 1 tablet (20 mg total) by mouth daily 30 tablet 11 01/07/2025 01/08/[address] (PROTONIX) 40 mg EC tabletIndication s:Treatment of Non-Bleeding Gastric Disorder Take 1 tablet (40 mg total) by mouth every morning 90 tablet 01/23/2025 04/23/20 25 Active pregabalin (LYRICA) 50 mg capsule Take 1 capsule (50 mg total) by mouth 3 (three) times a day Active potassium chloride ER 10 mEq CR tablet Take 1 tablet/capsu le (10 mEq total) by mouth 2 (two) times a day Active Active Problems Problem Noted Date Diagnosed Date 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 This was discussed at length he understands the implications and accepts the alternative. No need for further monitoring, Can follow-up as needed. Occult GI bleeding 01/21/2025 GIB (gastrointestinal bleeding) 01/20/2025 Severe anemia 01/20/2025 Elective replacement of impl antable cardioverter-defibrillator (ICD) battery required 10/01/2023 Sensorineural hearing loss (SNHL) of both ears 1 09/02/2022 Assessment & Plan (07/03/2023 10:35 AM CASTING ROOM HELPER): Hearing test Flonase 2 sprays into [...] 07/03/2023 Assessment & Plan (07/03/2023 10:35 AM CASTING ROOM HELPER): Hearing test Flonase 2 sprays into [...] (07/11/2022): Added automatically from request for surgery [id number] Pain associated with wound 06/28/2022 S/P TAVR (transcatheter aortic valve replacement ) 05/16/2021 Hx of CABG 02/07/2021 Permanent atrial fibrillation 02/07/2021 ICD (implantable cardioverter-defibrillator) in place 02/07/2021 History of coronary artery stent placement 02/07 Biventricular ICD (implantab le cardioverter-defibrillator) in place 01/04/2021 Overview (10/28/2023): Yo Karlos BIV ICD. Dx; CHF, SSS. Afib, AV Node Ablation. DOI 10/28/2023- Lynette. Chronic leads 05/25/2015. [place] remote monitoring. LV lead is a [employer] lead and therefore the device is Not MRI conditional d/t [facility]. Dr Elida Beltran-original device implanter in 2014. Osteoarthritis of lumbar spine 08/10/2015 Hypertension 01/29/2014 Overview (11/30/2016): High blood pressure Chronic coronary artery disease 01/29/2014 Overview (11/30/2016): Coronary artery disease Chronic obstructive pulmonary disease 01/29/2014 Overview (11/30/2016): COPD Hypercholesterolemia 01/29/2014 Overview (11/30/2016): High cholesterol Lumbago 02/04/2009 Encounters Date Type Department Care Team Description 02/11/2025 11:00 AM CDT Office Visit [facility] [address] [place] [address] Letitia Kumar NP 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); 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); Chronic coronary artery disease; ICD (implantable cardioverter-defibrill ator) in place; S/P TAVR (transcatheter aortic valve replacement); Permanent atrial fibrillation (HCC); Severe anemia 02/11/2025 9:15 AM CDT Ancillary Procedure [facility] [address] [place] [phone] 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 heart failure (HCC) 02/11/2025 Results Follow-Up [facility] [address] [facility] [address], [place] [address] Nikhil Gar NP Transthoracic Echo (TTE) Complete W Doppler/CF 02/03/2025 9:45 AM CDT Office Visit [facility] Vascular at [address] [place] [address] Karli Ibrahim NP Primary hypertension (Primary Dx); Juxtarenal abdominal aortic aneurysm (AAA) without rupture; Hypercholesterolemia 01/29/2025 Telephone [facility] Gastroenterology at [address] [place] [address] Yamel Salguero 01/29/2025 Results Follow-Up [facility]enter[facility] at [address] [place] [address] Karey Dong MD Surgical pathology 01/22/2025 12:30 PM CDT Anesthesia Event [facility] [address] [place] [address] Romulo Agee MD 01/22/2025 12:00 PM CDT - 01/22/2025 12:50 PM CDT Surgery [address] [address] Karey Dong MD COLON CONTROL BLEEDING 01/20/2025 7:02 PM CDT - 01/23/2025 3:47 PM CDT Hospital Encounter [facility] [address] [address] Rosemary Kidd DO Petters, MD Michelle Croft Jelena, MD Nations, Matthew Austin, DO Kim, Eileen H., MD Severe anemia [D64.9] (Primary Dx); Gastrointestinal hemorrhage, unspecified gastrointestinal hemorrhage type; Occult GI bleeding; Juxtarenal abdominal aortic aneurysm (AAA) without rupture; Severe anemia Discharge Disposition: Discharge to home or self care 01/07/2025 1:00 PM CDT Office Visit [facility] [address] [place] [address] [place] [phone] Nikhil Gar NP 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 heart failure (HCC) (Primary Dx); 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; Chronic coronary artery disease; Permanent atrial fibrillation (HCC); Primary hypertension; Hypercholesterolemia; S/P TAVR (transcatheter aortic valve replacement) 01/06/2025 Orders Only [facility] [address] [facility] [address] [place] [phone] Iker Ponce MD 01/04/2025 8:00 AM CDT Ancillary Procedure [facility] [address] [place] [address] [place] [phone] ICD (implantable cardioverter-defibrill ator) in place; Permanent atrial fibrillation (HCC); 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; S/P AV josué ablation; Congestive heart failure, unspecified HF chronicity, unspecified heart failure type (HCC) 01/04/2025 Telephone [facility] [address] [place] [address] [place] [phone] Jarett Yousif MD 12/30/2024 10:00 AM CDT Ancillary Procedure [facility] [address] [place] [address] [place] [phone] Longstanding persistent atrial fibrillation (HCC); SSS (sick sinus syndrome) (HCC); Congestive heart failure, unspecified HF chronicity, unspecified heart failure type (HCC); 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; History of atrioventricular josué ablation 12/30/2024 Orders Only [facility] [address] [place] [address] [place] [phone] Jarett Yousif MD ICD (implantable cardioverter-defibrill ator) in place (Primary Dx); Permanent atrial fibrillation (HCC); 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; S/P AV josué ablation; Congestive heart failure, unspecified HF chronicity, unspecified heart failure type (HCC) 12/29/2024 Telephone [facility] [address] [place] [address] [place] [phone] Jarett Yousif MD from Last 3 Months Immunizations Immunization Administration [...] drink = 0.6 oz pur e alcohol) [employer] Utilities Answer Date Recorded In the past 12 months has [employer], gas, oil, or water [employer] threatened to shut off services in your [...] often do you attend chur ch or mu-ism services? Never 01/21/2025 Do you belong to any clubs o r organizations such as baptist groups, unions, fraternal or athletic groups, or [...] time in the past 12 m [facility], were you homeless or living in a custodial (including now)? No 01/21/2025 Personal Safety Answer Date Recorded Have you ever been in or are you currently in a harmful physical or emotional relationship or is someone making you feel afraid or unsafe? Denies 01/20/2025 Sex and Gender Information Value Date Recorded Sex Assigned at Not on file Legal Sex Male 1:59 AM CASTING ROOM HELPER Gender Identity Not on file Sexual Orientation Not on file Obstetrics History Last Filed Vital Signs Vital Sign Reading Time Taken Comments Blood Pressure 122/68 02/11/2025 10:33 AM CDT Pulse 70 02/11/2025 10:33 AM CDT Temperature 36.6 C (97.8 F) 01/23/2025 10:36 AM CDT Respiratory Rate 18 01/23/2025 10:36 AM CDT Oxygen Saturation 98% 02/11/2025 10:33 AM CDT Inhaled Oxygen Concentration - - Weight 72.6 kg (160 lb) 02/11/2025 10:33 AM CDT Height 172.7 cm (5' 8) 02/11/2025 10:33 AM CDT Body Mass Index 24.33 02/11/2025 10:33 AM CDT Plan of Treatment Health Maintenance Due Date Last Done Comments Depression Screening 1940 Hepatitis B Screening 1959 Pneumococcal vaccine 65+ (1 of 2 - PCV) 1960 Zoster Vaccine (1 of 2) 1991 Well Visit 65+ 2006 Influenza Vaccine (#1) 2025 2, 06/21/2020, 04/26/2020, Additional history exists Fall Risk Assessment 01/23/2026 01/23/2025 DTaP/Tdap/Td Vaccine (2 - Td or Tdap) 06/28/2030 06/28/2020 Medical Devices Implanted Type Area Glove Cuffer Device Identifier Shelf Expiration Date Model / Serial / Lot Icd ICD Heart Pacemaker Pacemaker Heart Description:PACEMAKER/ICD Stent Implanted:Qty: 2 Stent Heart Yo V[employer] Defib Cardiac [id number] [place] Hf Df4 Is-4 Is-1 Cnctr [id number] - [id number] - [id number] Implanted:Qty: 1 on 10/28/2023 by Eric Ojeda MD at [facility] 08/25/2025 [id number] / [id number] / Procedures Procedure Name Priority Date/Time Associated Diagnosis Comments TRANSTHORACIC ECHO (TTE) COMPLETE W DOPPLER/CF WO CONTRAST Routine 02/11/2025 10:26 AM CDT 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 heart failure (HCC) HEMOGLOBIN AND HEMATOCRIT STAT 2024 11:28 AM [...] in place History of atrioventricular josué ablation from Last 3 Months Results * TRANSTHORACIC ECHO (TTE) COMPLETE W DOPPLER/CF WO CONTRAST (02/11/2025 10:26 AM CDT) Estimated EF 25-30 % CONS SCIMAGE EF Mod BP 38 % CONS SCIMAGE Anatomical Region Laterality Modality Ultrasound 02/11/2025 9:20 AM CDT Narrative 02/11/2025 11:19 AM CDT [facility] Cardiology [address] [facility] [address], [place] [address] [address] [facility] [address], [place] [address] P:[phone] P:[phone] Echocardiographic Report Patient Name: ELIDA RODAS W : 1940 Study Date: 02/11/2025 9:20:49 AM Gender: M Tech: MARCY Location: [facility] Provider: NIKHIL GAR Height(Cm): 173 BSA: 1.88 Weight(Kg): 73.5 Heart Rate: 73 BP: 132 / 87 Quality: Good Order Provider: NIKHIL GAR PROCEDURES: Echocardiographic Report: Transthoracic echocardiogram with complete 2D, M-Mode, and color Doppler examination. With Strain Analysis. INDICATIONS: I50.23 Acute on chronic systolic (congestive) heart failure. MEASUREMENTS: 2D/MM Value Range Doppler Value Range EF Mod BP 38 % [ 52 - 72 ] GUERO Vmax 2.13 cm2 [ 2.00 - 4.00 ] Estimated EF 25-30 % AV Mean PG 4 mmHg LVIDd 2D 5.84 cm [ 4.20 - 5.80 ] AV Peak Al 1.37 m/s [ 1.00 - 1.70 ] LVIDs 2D 4.77 cm [ 2.50 - 4.00 ] AV Peak PG 8 mmHg LVPWd 2D 0.87 cm [ 0.60 - 1.00 ] AV VTI 22.92 cm IVSd 2D 0.91 cm [ 0.60 - 1.00 ] LVOT Diam 2.08 cm [ 1.70 - 2.10 ] LA Volume Index 41 cc/m2 [ 16 - 34 ] LVOT Peak Al 0.77 m/s [ 0.70 - 1.10 ] LVOT VTI 14.10 cm PV Peak Al 0.75 m/s [ 0.40 - 0.80 ] TR Peak Al 3.43 m/s [ 1.00 - 2.80 ] TR Peak PG 47 mmHg 2D/MM Value Range Doppler Value Range - FINDINGS: Interpretation Site: Exam was interpreted at [facility]. Left Ventricle: Normal left ventricular wall thickness. Mild enlargement of left ventricle cavity. Severe global left ventricular systolic dysfunction. There is restrictive diastolic dysfunction Grade III to IV. Ejection Fraction is visually estimated to be 25-30 %. Global Longitudinal Strain is -8 %. GLS is abnormal. Right Ventricle: Normal right ventricular size. Mild right ventricular hypokinesis. Linear artifact in right ventricle suggestive of catheter(s), pacemaker lead(s), or ICD lead(s). Left Atrium: There is severe enlargement of left atrium. Right Atrium: The right atrium is normal in size. Atrial Septum: Normal atrial septum. Mitral Valve: Mitral valve leaflets appear mildly thickened. Moderate to severe mitral valve regurgitation. There is no hemodynamically significant mitral stenosis by Doppler. Aortic Valve: No evidence of hemodynamically significant aortic stenosis by Doppler. Trace aortic valve regurgitation. Gradients normal for valve type and size. Normal appearing aortic valve bioprosthesis. Tricuspid Valve: Normal appearance of the tricuspid valve. Moderate pulmonary hypertension based on right ventricular systolic pressure. Estimated peak RVSP is 55-60 mmHg. Mild tricuspid regurgitation. Pulmonic Valve: Normal appearance of the pulmonic valve. No pulmonic stenosis. Moderate pulmonic regurgitation. Pericardium: Small pericardial effusion. Aorta: Sinus of Valsalva is mildly dilated. IVC: Normal size and normal respiratory collapse consistent with normal right atrial pressure (<5 mmHg). CONCLUSIONS: Normal left ventricular wall thickness. Mild enlargement of left ventricle cavity. Severe global left ventricular systolic dysfunction. There is restrictive diastolic dysfunction Grade III to IV. Ejection Fraction is visually estimated to be 25-30 %. Global Longitudinal Strain is -8 %. GLS is abnormal. Normal right ventricular size. Mild right ventricular hypokinesis. Linear artifact in right ventricle suggestive of catheter(s), pacemaker lead(s), or ICD lead(s). There is severe enlargement of left atrium. Mitral valve leaflets appear mildly thickened. Moderate to severe mitral valve regurgitation. No evidence of hemodynamically significant aortic stenosis by Doppler. Trace aortic valve regurgitation. Gradients normal for valve type and size. Normal appearing aortic valve bioprosthesis. Moderate pulmonary hypertension based on right ventricular systolic pressure. Estimated peak RVSP is 55-60 mmHg. Mild tricuspid regurgitation. Moderate pulmonic regurgitation. Small pericardial effusion. Sinus of Valsalva is mildly dilated. Ventricular paced rhythm. Electronically Signed By: Arpan Rajan MD 02/11/2025 11:19:01 AM CDT Procedure Note Arpan Rajan MD - 02/11/2025 [facility] Group Cardiology [address] [facility] [address] [address] [address] [facility] [address], [place], [place] [address] P:[phone] P:[phone] Echocardiographic Report Patient Name: ELIDA RODAS W : 1940 Study Date: 02/11/2025 9:20:49 AM Gender: M Tech: [facility] Location: [facility] Provider: NIKHIL GAR Height(Cm): 173 BSA: 1.88 Weight(Kg): 73.5 Heart Rate: 73 BP: 132 / 87 Quality: Good Order Provider: NIKHIL GAR PROCEDURES: Echocardiographic Report: Transthoracic echocardiogram with complete 2D, M-Mode, and color Dopplerexamination. With Strain Analysis. INDICATIONS: I50.23 Acute on chronic systolic (congestive) heart failure. MEASUREMENTS: 2D/MM Value Range Doppler ValueRange EF Mod BP 38 % [ 52 - 72 ] GUERO Vmax 2.13cm2 [ 2.00 - 4.00 ] Estimated EF 25-30 % AV Mean PG 4mmHg LVIDd 2D 5.84 cm [ 4.20 - 5.80 ] AV Peak Al 1.37m/s [ 1.00 - 1.70 ] LVIDs 2D 4.77 cm [ 2.50 - 4.00 ] AV Peak PG 8mmHg LVPWd 2D 0.87 cm [ 0.60 - 1.00 ] AV VTI 22.92cm IVSd 2D 0.91 cm [ 0.60 - 1.00 ] LVOT Diam 2.08 cm[ 1.70 - 2.10 ] LA Volume Index 41 cc/m2 [ 16 - 34 ] LVOT Peak Al 0.77m/s [ 0.70 - 1.10 ] LVOT VTI 14.10 cm PV Peak Al 0.75 m/s [ 0.40 - 0.80 ] TR Peak Al 3.43 m/s [ 1.00 - 2.80 ] TR Peak PG 47 mmHg 2D/MM Value Range Doppler ValueRange - FINDINGS: Interpretation Site: Exam was interpreted at [facility]. Left Ventricle: Normal left ventricular wall thickness. Mild enlargement of left ventriclecavity. Severe global left ventricular systolic dysfunction. There is restrictivediastolic dysfunction Grade III to IV. Ejection Fraction is visually estimated to be 25-30 %.Global Longitudinal Strain is -8 %. GLS is abnormal. Right Ventricle: Normal right ventricular size. Mild right ventricular hypokinesis. Linearartifact in right ventricle suggestive of catheter(s), pacemaker lead(s), or ICDlead(s). Left Atrium: There is severe enlargement of left atrium. Right Atrium: The right atrium is normal in size. Atrial Septum: Normal atrial septum. Mitral Valve: Mitral valve leaflets appear mildly thickened. Moderate to severe mitralvalve regurgitation. There is no hemodynamically significant mitral stenosis byDoppler. Aortic Valve: No evidence of hemodynamically significant aortic stenosis by Doppler.Trace aortic valve regurgitation. Gradients normal for valve type and size. Normal appearingaortic valve bioprosthesis. Tricuspid Valve: Normal appearance of the tricuspid valve. Moderate pulmonary hypertensionbased on right ventricular systolic pressure. Estimated peak RVSP is 55-60 mmHg. Mildtricuspid regurgitation. Pulmonic Valve: Normal appearance of the pulmonic valve. No pulmonic stenosis. Moderatepulmonic regurgitation. Pericardium: Small pericardial effusion. Aorta: Sinus of Valsalva is mildly dilated. IVC: Normal size and normal respiratory collapse consistent with normal rightatrial pressure (<5 mmHg). CONCLUSIONS: Normal left ventricular wall thickness. Mild enlargement of left ventriclecavity. Severe global left ventricular systolic dysfunction. There is restrictivediastolic dysfunction Grade III to IV. Ejection Fraction is visually estimated to be 25-30 %.Global Longitudinal Strain is -8 %. GLS is abnormal. Normal right ventricular size. Mild right ventricular hypokinesis. Linearartifact in right ventricle suggestive of catheter(s), pacemaker lead(s), or ICDlead(s). There is severe enlargement of left atrium. Mitral valve leaflets appear mildly thickened. Moderate to severe mitralvalve regurgitation. No evidence of hemodynamically significant aortic stenosis by Doppler.Trace aortic valve regurgitation. Gradients normal for valve type and size. Normal appearingaortic valve bioprosthesis. Moderate pulmonary hypertension based on right ventricular systolicpressure. Estimated peak RVSP is 55-60 mmHg. Mild tricuspid regurgitation. Moderate pulmonic regurgitation. Small pericardial effusion. Sinus of Valsalva is mildly dilated. Ventricular paced rhythm. Electronically Signed By: Arpan Rajan MD 02/11/2025 11:19:01 AM CDT Nikhil Gar NP CV ECHO PROCEDURES [facility] Result * (ABNORMAL) Hemoglobin and hematocrit (01/23/2025 11:28 AM CDT) Hgb 7.7(L) 13.0 - 17.5 g/dL Hct 24.5(L) 38.9 - 50.3 % [facility] ([facility]) Blood 01/23/2025 11:2 8 AM CDT 01/23/2025 11:31 AM CDT us Zenia Vázquez MD LAB BLOOD ORDERABLES Final Resu lt [facility] ([facility]) [facility] [place] [address] * (ABNORMAL) eGFR (01/23/2025 4:04 AM CDT) [...] BLOOD ORDERABLES Fi nal Result [facility] ([facility]) 1 [facility] [place] [address] * (ABNORMAL) Differential, auto (01/23/2025 4:04 AM [...] BLOOD ORDERABLES Fi nal Result [facility] ([facility]) 1 [facility] Department [place] [address] * (ABNORMAL) CBC with auto differential (01/23/2025 4:04 AM CDT) [facility] WBC 5.55 3.80 - 9.90 K/cumm Hgb [...] Fi nal Result [facility] ([facility]) 1 [facility] Department [place] [address] * Magnesium (01/23/2025 4:04 AM CDT) [facility] Magnesium 1.7 1.4 - 2.5 mg/dL Blood 01/23/2025 4:04 AM CDT 01/23/2025 4:59 AM CDT us Celeste Velez MD LAB BLOOD ORDERABLES Fi nal Result [facility] ([facility]) 1 [facility] Department [place] [address] * (ABNORMAL) Comprehensive metabolic panel (01/23/2025 4:04 [...] 24 10 - 50 Units/L [facility] ([facility]) Comment: Hemolysis present. Results may be affected. Slightly Hemolyzed Specimen Blood 01/23/2025 4:04 AM CDT 01/23/2025 4:59 AM CDT us Celeste Velez MD LAB BLOOD ORDERABLES Fi nal Result [facility] ([facility]) 1 [facility] Department [place] [address] * EGD (01/22/2025 11:51 AM CDT) Anatomical Region Laterality Modality Other Narrative Procedure Note Karey Dong MD - 01/22/2025 11:51 AM CDT [facility] Patient Name: Elida Rodas Procedure Date: 01/22/2025 11:51 AM Date of : 1940 Admit Type: Inpatient Age: 84 Gender: Male Attending MD: Karey Dong M.D. Room: [facility] ENDOSCOPY ROOM 2 Note Status: [...] procedure were verified by the physician, the staff electrical engineer and the formula technician in the endoscopy suite. Mental Status [...] passed under direct vision. The Endoscope [id number] was introduced through the mouth, and advanced [...] 11:51 AM Procedure Code(s): --- Professional --- 72464, Esophagogastroduodenoscopy, flexible, transoral; with biopsy, single or multiple --- Technical --- 43256, Esophagogastroduodenoscopy, flexible, transoral; with biopsy, single or multiple Diagnosis Code(s): --- Professional --- K21.00, Gastro-esophageal reflux disease with esophagitis, without bleeding D50.0, Iron deficiency anemia secondary to blood loss (chronic) K92.1, Melena (includes Hematochezia) --- Technical --- K21.00, Gastro-esophageal reflux disease with esophagitis, without bleeding D50.0, Iron deficiency anemia secondary to blood loss (chronic) K92.1, Melena (includes Hematochezia) CPT copyright 2020 [employer]. All rights reserved. The codes documented in this report are preliminary and upon molder pipe covering reviewmay be revised to meet current compliance requirements. Recognized by the [employer] for promoting quality in endoscopy us Karey Dong MD ENDOSCOPY PROCEDURES Final Resul t * Colonoscopy (01/22/2025 11:49 AM CDT) Anatomical Region Laterality Modality Other Narrative Procedure Note Karey Dong MD - 01/22/2025 11:49 AM CDT [facility] Patient Name: Elida Rodas Procedure Date: 01/22/2025 11:49 AM Date of : 1940 Admit Type: Inpatient Age: 84 Gender: Male Attending MD: Karey Dong M.D. Room: [facility] ENDOSCOPY ROOM 2 Note Status: [...] coagulation (APC). Clip (MRconditional) was placed. Clip gold blower: [employer]. - One 8 mm polyp in the [...] procedure were verified by the physician, the staff electrical engineer and the formula technician in the endoscopy suite. Mental Status [...] under direct vision. The Pediatric Colonoscope [id number] was introducedthrough the anus and advanced to [...] clip was successfully placed (MR conditional). Clip gold blower: [employer]. There was no bleeding at the end [...] 11:49 AM Procedure Code(s): --- Professional --- 29525, Colonoscopy, flexible; with control of bleeding, any method --- Technical --- 76232, Colonoscopy, flexible; with control of bleeding, any [...] without perforation orabscess without bleeding CPT copyright 202 [employer]. All rights reserved. The codes documented in this report are preliminary and upon molder pipe covering reviewmay be revised to meet current compliance requirements. Recognized by the [employer] for promoting quality in endoscopy us Karey Dong MD ENDOSCOPY PROCEDURES Final Resul t * Surgical pathology (01/22/2025 9:52 AM CDT) Tissue ([place], Biopsy) 01/22/2025 12:48 PM CDT Narrative PATHOLOGY [facility] ([place]) - 01/26/2025 2:52 PM CDT EPIC results best viewed via link to PDF [facility] Department of Pathology [address] [place] [address] Note to Patients: This report may contain [...] Final Report Patient Name: ELIDA RODAS Address: [address] [place] [id number] Gender: M : 1940 (Age: 84) Service: Medical Location: [facility] Hospital #: [id number] Patient Type: [facility] Taken: 01/22/2025 Received: 01/25/2025 Accessioned: 01/25/2025 Reported: [...] determined by the Surgical Pathology Department at [facility] as part of an ongoing personnel quality assurance auditor program and in compliance with federally mandated [...] characteristics determined by the Surgical Pathology Department [facility]. It has not been cleared or approved by the U. S. Food and Drug Administration. Note for decalcified specimens: This assay has not been validated on decalcified tissues. Results should be interpreted with caution given the possibility of false negativity on decalcified specimens Karey Dong MD LAB PATHOLOGY ORDERABLES Final R esult PATHOLOGY [facility] [address] [place] [address] * (ABNORMAL) eGFR (01/22/2025 4:18 AM CDT) [...] BLOOD ORDERABLES Fi nal Result J[facility]IOR MCNAMARA ([place]) 1 [facility] Department [place] [address] * Differential, auto (01/22/2025 4:18 AM CDT) [...] us Celeste Velez MD LAB BLOOD ORDERABLES [facility] Result JUNIOR ANDERS ([place]) 1 [facility] Department [place] [address] * (ABNORMAL) CBC with auto differential (01/22/2025 4:18 AM CDT) WBC 4.71 3.80 - 9.90 K/cumm Hgb 7.8(L) 13.0 - 17.5 g/dL [facility] ([place]) Hct 24.3(L) 38.9 - 50.3 % [facility] ([place]) Plt 104(L) 150 - 400 K/cumm [facility] ([place]) MPV 9.9 9.1 - 12.3 fL [facility] ([place]) RBC 2.54(L) 4.30 - 5.80 M/cumm [facility] ([place]) MCV 95.7 81.3 - 96.4 fL [facility] ([place]) MCH 30.7 27.1 - 33.3 pg [facility] ([place]) MCHC 32.1(L) 32.3 - 35.7 g/dL [facility] ([place]) RDW CV 18.1(H) 11.1 - 14.9 % [facility] ([place]) RDW SD 63.9(H) 35.7 - 48.1 fL [facility] ([place]) NRBC abs 0.00 0.00 - 0.01 K/cumm [facility] ([place] Blood 01/22/2025 4:18 AM CDT 01/22/2025 5:30 AM CDT Celeste Velez MD LAB BLOOD ORDERABLES Fi nal Result [facility] ([place] 1 [facility] [employer] [place] [address] * Magnesium (01/22/2025 4:18 AM CDT) Pathologist [facility] Magnesium 1.7 1.4 - 2.5 mg/dL Blood 01/22/2025 4:18 AM CDT 01/22/2025 5:29 AM CDT Celeste Velez MD LAB BLOOD ORDERABLES Fi nal Result Performing Organization Address City/[facility]/ZIP Co de Phone Number [facility] ([place]) [address] [place] [address] [place] [address] * (ABNORMAL) Comprehensive metabolic panel (01/22/2025 4:18 AM CDT) Sodium 138 135 - 145 mmol/L Potassium, pl 3.3 3.3 - 4.9 mmol/L [facility] ([place]) Chloride 103 97 - 110 mmol/L [facility] ([place]) CO2 20(L) 22 - 32 mmol/L [facility] ([place]) Anion gap 15 2 - 15 mmol/L [facility] ([place]) BUN 22 6 - 25 mg/dL [facility] ([place]) Creatinine 1.40(H) 0.80 - 1.30 [...] Fi nal Result [facility] ([place]) 1 [facility] Department [place] [address] * (ABNORMAL) Hemoglobin and hematocrit (01/21/2025 12:44 PM CDT) Hgb 9.2(L) 13.0 - 17.5 g/dL Hct 28.3(L) 38.9 - 50.3 % [facility] ([place]) Blood 01/21/2025 12:4 4 PM CDT 01/21/2025 12:48 PM CDT us Celeste Velez MD LAB BLOOD ORDERABLES Fi nal Result [facility] ([place]) 1 [facility] [place] [address] * (ABNORMAL) Protime-INR (01/21/2025 12:44 PM CDT) PT 17.8(H) 9.7 - 13.0 sec [facility] ([place]) INR 1.63(H) 0.90 - 1.20 [facility] ([place]) Comment: Interpretive data Oral anticoagulant therapeutic ranges: Venous thromboembolism prophylaxis or treatment: 2.0-3.0 CARDIOLOGY Standard range: 2.0-3.0 High-intensity range: 2.5-3.5 Refer to indication-specific guidelines for appropriate target ranges for prosthetic heart valve replacement. Current interpretive data was last revised on 2019. Blood 01/21/2025 12:4 4 PM CDT 01/21/2025 12:48 PM CDT us Kailyn FAIRCHILD LAB BLOOD ORDERABLES Fin al Result Performing Organization Address City/[facility] Co de Phone Number [facility] MC[facility] ([place]) 1 [facility] [place] [address] * (ABNORMAL) eGFR (01/21/2025 5:39 AM CDT) [...] MD LAB BLOOD ORDERABLES Fi nal Result [facility] ([place]) 1 [facility] Department [place] [address] * Differential, auto (01/21/2025 5:39 AM CDT) [...] ORDERABLES Fi nal Result Performing Organization Address City/[facility]/ZIP Co de Phone Number [facility] ([place]) 1 [facility] Department [place] [employer] [place] [address] * Iron profile w/ IBC (01/21/2025 5:39 AM CDT) Pathologist [facility] Iron 98 50 - 150 mcg/dL TIBC 285 250 - 400 mcg/dL [facility] ([place]) Transferrin saturation 34 20 - 50 % [facility] ([place]) Blood 01/21/2025 5:39 AM CDT 01/21/2025 5:52 AM CDT Celeste Velez MD LAB BLOOD ORDERABLES Fi nal Result [facility] ([place]) 1 [facility] [place] [employer] [place] [address] * (ABNORMAL) CBC with auto differential (01/21/2025 5:39 AM CDT) Pathologist [facility] WBC 4.56 3.80 - 9.90 [...] ([place]) MCHC 32.0(L) 32.3 - 35.7 g/dL [facility] ([place]) RDW CV 17.4(H) 11.1 - 14.9 % [facility] ([place]) RDW SD 62.3(H) 35.7 - 48.1 fL [facility] ([place]) NRBC abs 0.00 0.00 - 0.01 K/cumm [facility] ([place]) Blood 01/21/2025 5:39 AM CDT 01/21/2025 5:52 AM CDT us Celeste Velez MD LAB BLOOD ORDERABLES Fi nal Result Performing Organization Address City/[facility] Co de Phone Number JUNIOR MCNAMARA ([place]) 1 [facility] Department [place] [address] * (ABNORMAL) Hemoglobin and hematocrit (01/21/2025 5:39 AM CDT) [facility] Hgb 8.1(L) 13.0 - 17.5 g/dL Hct 25.1(L) 38.9 - 50.3 % [facility] ([place]) Blood 01/21/2025 5:39 AM CDT 01/21/2025 5:52 AM CDT Celeste Velez MD LAB BLOOD ORDERABLES Fi nal Result [facility] ([place]) 1 [place] [address] * Magnesium (01/21/2025 5:39 AM CDT) Magnesium 1.8 1.4 - 2.5 mg/dL Blood 01/21/2025 5:39 AM CDT 01/21/2025 5:52 AM CDT Celeste Velez MD LAB BLOOD ORDERABLES Fi nal Result [facility] ([place]) 1 [place] [address] * Lactate dehydrogenase (LD) (01/21/2025 5:39 AM CDT) Lactate dehydrogenase (LDH) 224 100 - 250 Units/L Blood 01/21/2025 5:39 AM CDT 01/21/2025 5:52 AM CDT Celeste Velez MD LAB BLOOD ORDERABLES Fi nal Result Performing Organization Address [facility]/ZIP Co de Phone Number J[facility]IOR MCNAMARA ([place]) 1 [facility] [place] [address] * Haptoglobin (01/21/2025 5:39 AM CDT) Haptoglobin 68 30 - 200 mg/dL Comment:Testing performed by : [facility], [address] [place] [address]., [id number] Blood 01/21/2025 5:39 AM CDT 01/21/2025 9:08 AM CDT Celeste Velez MD LAB BLOOD ORDERABLES Fi nal Result [facility] ([place]) 1 [facility] [place] [address] * Folate (01/21/2025 5:39 AM CDT) [facility] Folic acid >20.0 >=5.0 ng/mL Comment:Slightly Hemolyzed S pecimen. Results may be affected. Blood 01/21/2025 5:39 AM CDT 01/21/2025 5:52 AM CDT Celeste Velez MD LAB BLOOD ORDERABLES Fi nal Result [facility] ([place]) 1 [facility] [place] [address] * Ferritin (01/21/2025 5:39 AM CDT) [facility] Ferritin 61 30 - 400 ng/mL Blood 01/21/2025 5:39 AM CDT 01/21/2025 5:52 AM CDT Celeste Velez MD LAB BLOOD ORDERABLES Fi nal Result Performing Organization Address City/[facility]/ZIP Co de Phone Number [facility] ([place]) 1 [facility] [place] [address] * Vitamin B12 (01/21/2025 5:39 AM CDT) [facility] Vitamin B12 688 230 - 1,250 pg/mL Blood 01/21/2025 5:39 AM CDT 01/21/2025 5:52 AM CDT Celeste Velez MD LAB BLOOD ORDERABLES Fi nal Result [facility] ([place]) 1 [facility] [place] [address] * (ABNORMAL) Comprehensive metabolic panel (01/21/2025 5:39 AM CDT) [facility] Sodium 140 135 - 145 mmol/L Potassium, pl 4.1 3.3 - 4.9 mmol/L [facility] ([place]) Chloride 104 97 - 110 mmol/L [facility] ([place]) CO2 23 22 - 32 mmol/L [facility] ([place]) Anion gap 13 2 - 15 mmol/L [facility] ([place]) BUN 25 6 - 25 mg/dL [facility] ([place]) Creatinine 1.49(H) 0.80 - 1.30 mg/dL [...] MD LAB BLOOD ORDERABLES Fi nal Result [facility] 1 [facility] Department [place] [address] * Urinalysis reflex to microscopic and culture [...] tendency for uric acid stone formation. Source: [facility] Current Interpretive Data was last revised on [...] GENE RAL ORDERABLES Final Result [facility]IOR MCNAMARA ([place]) 1 [facility] [place] [address] * Transfuse RBC (01/21/2025 4:29 AM CDT) Blood Celeste Velez MD BLOOD TRANSFUSION ORDER AVEL Final Result [facility] ANDERS ([place]) 1 [facility] [place] [address] * Prepare RBC: 1 Units (01/21/2025 1:23 AM CDT) Units requested 1 Units requested Ready [facility] ([place]) Blood 01/21/2025 1:23 AM CDT 01/21/2025 1:23 AM CDT Narrative [facility] ([place]) - 01/21/2025 1:24 AM CDT Are special requirements needed? (All products are leukoreduced and CMV- safe)->No Celeste Velez MD BLOOD BANK PRODUCT ORDE RABLES Final Result [facility] ([place]) 1 [facility] [place] [address] * Prepare RBC (01/21/2025 1:16 AM CDT) Unit Number [id number] Product code [id number] [facility] ([place]) Blood Expiration Date [id number] [facility] ([place]) Product Blood Type (for scanning) 6200 [facility] ([place]) Product Blood Type APOS [facility] ([place]) Dispense Status DISPENSED [facility] ([place]) Celeste Velez MD BLOOD BANK PRODUCT ORDE RABLES Final Result [facility]ARA ([place]) 1 [facility] [place] [address] * (ABNORMAL) Hemoglobin and hematocrit (01/21/2025 12:01 AM CDT) Hgb 6.8(L) 13.0 - 17.5 g/dL Hct 21.1(L) 38.9 - 50.3 % [facility] ([place]) Blood 01/21/2025 12:0 1 AM CDT 01/21/2025 12:12 AM CDT Celeste Velez MD LAB BLOOD ORDERABLES Fi nal Result [facility] [place] 1 [facility] Department [place] [address] * CT Chest Abdomen Pelvis WO Contrast [...] Arnold Garduno M.D. KT: REDD Report ID: [id number] Reading Location: [id number] Procedure Note Arnold Garduno MD - 01/21/2025 [...] Arnold Garduno M.D. KT: KT Report ID: [id number] Reading Location: [place] [address] Celeste Velez MD IMG CT PROCEDURES Final Result * ECG 12 lead (01/20/2025 9:11 PM CDT) 01/20/2025 9:11 PM CDT Narrative [facility] - 01/21/2025 2:35 PM CDT Vent Rate: 75 bpm RR Interval: 790 msec GA Interval: 0 msec QRS Duration: 163 msec QT Interval: 480 msec QTC Interval: 510 msec P-R-T [place]: [id number] - -86 - 89 degrees IMPRESSION: ELECTRONIC VENTRICULAR PACEMAKER WITH OCCASIONAL PVCS ABNORMAL RHYTHM ECG PVCS NEW Electronically Signed By: Corina Valentin MD Celeste Velez MD ECG ORDERABLES Final R esult [facility] * ABO / Rh Confirmation Testing (01/20/2025 8:20 PM CDT) ABO/Rh Confirmation AB Positive [facility] Blood 01/20/2025 8:20 PM CDT 01/20/2025 8:23 PM CDT Celeste Velez MD LAB BLOOD ORDERABLES Fi nal Result [facility] ([place]) 1 [facility] Department [place] [address] [facility] * (ABNORMAL) Pro B-type natriuretic peptide [...] as advanced age. - References: 1. Ilda JL et.al. Eur Heart J. 2006:27:330-337. 2. Lisandro RW, Sita AM. J. AM Kathryn Cardiol: Cardiovasc Imag. 2009;2: 216- 225. Interpretive Data Last Revised Date: 2018. Blood 01/20/2025 8:20 PM CDT 01/20/2025 8:23 PM CDT us Celeste Velez MD LAB BLOOD ORDERABLES Fi nal Result [facility] ([place]) [address] [facility] [place] [address] * (ABNORMAL) Troponin T high-sensitivity (01/20/2025 7:21 [...] ORDERABLES Fi nal Result Performing Organization Address City/[facility]/ZIP Co de Phone Number [facility]IOR [facility] ([place]) 1 [facility] [place] [address] * (ABNORMAL) eGFR (01/20/2025 7:21 PM CDT) [...] ORDERABLES Fi nal Result Performing Organization Address City/[facility]/ZIP Co de Phone Number [facility] ([place]) 1 [facility] [place] [address] * (ABNORMAL) Differential, auto (01/20/2025 7:21 PM [...] Fi nal Result [facility] ([place]) 1 [facility] [employer] [place] [address] * (ABNORMAL) CBC with auto differential (01/20/2025 7:21 PM CDT) Pathologist [facility] WBC 4.71 3.80 - 9.90 K/cumm Hgb [...] Fi nal Result [facility] ([place]) 1 [facility] [place] [address] * ABO/Rh (01/20/2025 7:21 PM CDT) ABO/Rh AB Positive Blood 01/20/2025 7:21 PM CDT 01/20/2025 7:25 PM CDT Narrative [facility] ([place]) - 01/20/2025 8:09 PM CDT Has the patient had Daratumumab or Isatuximab in the past 6 months?->Unknown Celeste Velez MD LAB BLOOD BANK TEST ORD ERABLES Final Result [facility] ([place]) 1 [facility] [place] [address] * Crossmatch (01/20/2025 7:21 PM CDT) Crossmatch Compatible [facility]IOR [facility] ([place]) Unit number for crossmatch [id number] [facility] ([place]) Blood 01/20/2025 7:21 PM CDT 01/20/2025 7:25 PM CDT Celeste Velez MD LAB BLOOD BANK TEST ORD ERABLES Final Result [facility] ([place]) 1 [facility] [place] [address] * Antibody screen (01/20/2025 7:21 PM CDT) Kylee, indirect, Gel Interpretation Negative ABSC Blood 01/20/2025 7:21 PM CDT 01/20/2025 7:25 PM CDT Narrative [facility] ([place] - 01/20/2025 8:09 PM CDT Has the patient had Daratumumab or Isatuximab in the past 6 months?->Unknown Celeste Velez MD LAB BLOOD BANK TEST ORD ERABLES Final Result [facility] ([place]) 1 [facility] [place] [address] * Phosphorus (01/20/2025 7:21 PM CDT) [facility] Phosphorus, pl 3.1 2.3 - 4.5 mg/dL Blood 01/20/2025 7:21 PM CDT 01/20/2025 7:25 PM CDT Celeste Velez MD LAB BLOOD ORDERABLES Fi nal Result [facility] ([place]) 1 [facility] [place] [address] * Magnesium (01/20/2025 7:21 PM CDT) [facility] Magnesium 1.7 1.4 - 2.5 mg/dL Blood 01/20/2025 7:21 PM CDT 01/20/2025 7:25 PM CDT Celeste Velez MD LAB BLOOD ORDERABLES Fi nal Result Performing Organization Address City/[facility]/ZIP Co de Phone Number [facility] MC[facility]ARA ([place]) 1 [facility] [place] [address] * (ABNORMAL) Comprehensive metabolic panel (01/20/2025 7:21 PM CDT) [facility] Sodium 137 135 - 145 mmol/L Potassium, pl 4.1 3.3 - 4.9 mmol/L [facility] ([place]) Chloride 101 97 - 110 mmol/L [facility] ([place]) CO2 23 22 - 32 mmol/L [facility] ([place]) Anion gap 14 2 - 15 mmol/L [facility] ([place]) BUN 26(H) 6 - 25 mg/dL [facility] ([place]) Creatinine 1.43(H) 0.80 - 1.30 mg/dL [facility] ([place]) Glucose 120 70 - 199 mg/dL [facility] ([place]) Comment: Interpretive Data Fasting glucose [...] Fi nal Result [facility]IOR MCNAMARA ([place]) 1 [facility] [place] [address] * BMP - Basic Metabolic Panel (7) (01/05/2025 9:41 AM CDT) Historical Provider LAB BLOOD ORDERABLES Lucia l Result * DEVICE CHECK - REMOTE (01/04/2025 1:06 PM CDT) Anatomical Region Laterality Modality Other Narrative 01/08/2025 10:41 AM CDT Yo [place] BIV ICD. Dx; CHF, SSS. Afib, AV Node Ablation. DOI 10/28/2023-[place]. Chronic leads 05/25/2015. [place] remote monitoring. Unscheduled remote due to patient [...] Lasix, potassium, amongst others. See scanned report. [place] remote follow-up 04/06/2025. ROV with Dr. Yousif 05/20/2025. Ning Johansen RN Jarett Yousif MD CV CARDIAC SERVICES PROC EDURES Final Result * DEVICE CHECK - IN OFFICE (12/30/2024 9:48 AM CDT) Anatomical Region Laterality Modality Other Narrative 01/08/2025 10:39 AM CDT Yo [place] BIV ICD. Dx; CHF, SSS. Afib, AV Node Ablation. DOI 10/28/2023-[place]. Chronic leads 05/25/2015. Sav remote monitoring. LV lead is a [employer] lead and therefor the device is Not MRI conditional d/t [employer] products. Supervising MD: Dr Whittaker. Left pectoral [...] based on patient's response to today's adjustments. [place] remote f/u 04/06/2025. Ning Johansen RN Jarett Yousif MD CV CARDIAC SERVICES PROC EDURES Final Result from Last 3 Months Insurance UHC MEDICARE ADVANTAGE MEDICARE [facility] MEDICARE ADVANTAGE [facility] MEDICARE ADVANTAGE Advance Directives For more information, please contact: [phone] * Full Code (Latest Code Status on File) Date Activated Date Inactivated Comments 01/22/2025 11:51 AM 01/23/2025 7:53 PM * Full Code Date Activated Date Inactivated Comments 01/22/2025 11:47 AM 01/22/2025 11:51 AM * Full Code Date Activated Date Inactivated Comments 01/20/2025 7:14 PM 01/22/2025 11:47 AM Care Teams Manufacturing Engineering Technician Relationship Specialty Start Date End Date Ruddy Yang MD [address] [place] [address] PCP - General Internal Medicine 01/02/21
--- OUTSIDE RECORDS SUMMARY | 2025-03-15 20:03 | XMS_ITS | Clinical Summary ---
Author Organization [facility] Address [address] [facility] [place] [address] Phone Care Team Providers Care Street Light Wirer Name Role Phone Unavailable Primary Care Provider [...] daily. Active fluticasone propionate (FLONASE) 50 mcg/spray [place], Suspension nasal inhaler Administer 2 Sprays in each nostril daily. 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 Gender Identity Not on file Sexual Orientation Not on file Last Filed Vital Signs Vital Sign Reading Time Taken Comments Blood Pressure 140/77 10/22/2022 10:05 AM ELECTRONIC SCALE SUBASSEMBLER Pulse 70 10/22/2022 10:01 AM ELECTRONIC SCALE SUBASSEMBLER Temperature 35.7 C (96.3 F) 10/22/2022 10:01 AM ELECTRONIC SCALE SUBASSEMBLER Respiratory Rate 10 10/22/2022 10:0 1 AM ELECTRONIC SCALE SUBASSEMBLER Oxygen Saturation 98% 10/22/2022 10: 01 AM ELECTRONIC SCALE SUBASSEMBLER Inhaled Oxygen Concentration - - Weight 81.5 kg (179 lb 11.2 oz) 023 10:01 AM ELECTRONIC SCALE SUBASSEMBLER Height 172.7 cm (5' 8) 03/21/2022 11:1 [...] 1-dose 75+ series) 2016 INFLUENZA VACCINE (#1) 2025 2, 06/21/2020, 05/26/2019, Additional history exists COLORECTAL SCREENING Discontinued 07/05/2020 Colorectal Cancer Screening Discontinued FIT-DNA Q 3 years Discontinued FIT/FOBT Q 1 year Discontinued Flex Sig/CT Colonography Q 5 years Discontinued Insurance [place] [id number]
--- OUTSIDE RECORDS SUMMARY | 2025-03-15 20:03 | XMS_ITS | Data Portability ---
Author Organization [facility], Main Office Address [address] [place] [address] Care Team Providers Care Oil Tank Car Cleaner Name Role Phone BERNARD, JOHNFOZIA Primary Care Provider CHUCHO MIRANDA Hand Packer/Packager Assessment No assessment recorded. Plan of Treatment [...] By Organization Details Last Modified Time 08/06/2024 [id number] it is unknown whether not he will pass his cardiac clearance and his son is concerned about the risk were dean in any case. We will set up open reduction nasal fracture until a decision is established [employer] Not available 08/06/2024 12:42:45 Reason for Referral None Reported. Problems Name Problem SNOMED Code Status Onset Date Resolution Date Notes Provider Name and Address Organization Details Recorded Time Closed fracture of nasal bones 62157075 Active 024 Glen Mayen MD [address] [place] [address], [id number] , [facility] [employer] 12:42:25 Problem Notes None recorded. Procedures Surgical History Date Name Laterality Status Provider Name and Address Organization Details Recorded Time 08/26/19 13 cholecystectomy completed Malorie Elizabeth RN [facility] [employer] 08/06/2024 17:58:37 Imaging Results None recorded. Procedure Notes None recorded. Medical Equipment None Reported. Allergies Allergen ID Allergen Name Allergen Category Reaction Reaction Severity Criticality Documentation Date Start Date Code Code System Note Provider Name and Address Organization Details Recorded Time 11957 Oxycontin medicatio n Not available Not available Not available 08/06/2024 84145 6 RxNorm Malorie Elizabeth RN null, [place] - [facility] 12:26:30 Medications Name Sig Start Date Stop [...] Address Organization Details Last Updated DateTime 08/06/2024 59159.92 g 26.4 kg/m2 172.72 cm 98 [degF] Malorie Elizabeth RN [facility] [employer] 08/06/2024 12:24:19 Social History None recorded. Functional [...] SNOMED-CT Code Diagnosis ICD10 Code Diagnosis Note [id number] Glen Mayen MD [facility] [address] [place] [address] 08/06/2024 11:56:02 08/20/2024 10:43:43 Closed fracture of nasal bones 55591287 S02.2XXA Health Concerns Section Related Observation LastModified by Organization Detai ls LastModified Time None Recorded Concern Status LastModified by Organization Details LastModified Time None Recorded Advance Directives Directive None Recorded Payers Insurance Date Sequence Insurance Name Policy Number Policy De Jesus Covered Member ID De Jesus Member ID Guarantor Name 08/20/2024 1 [facility] (MEDICARE REPLACEMENT/A DVANTAGE - HMO) [id number] Jovan Rodas [id number] Jovan Rodas Notes Date Note Type Note Provider Name and Address Organization Details Recorded Time 08/06/2024 text/html This patient fel l and fractured his nose. There is a prominent external visible displacement of his nasal bones. He does have a significant cardiac history. Glen Mayen MD [address] [place] [address], [facility] [address], [place], [address], [facility] [employer] 08/06/2024 12:43:01
--- OUTSIDE RECORDS SUMMARY | 2025-03-15 20:03 | XMS_ITS | Patient Health Record ---
Author Organization [facility] Address [address] [place], [place] [id number] Care Team Providers Care Bead Worker Sewing Name Role Phone LALITA Llanos Unavailable [phone] Ruddy Yang Unavailable Unavailable Reason For Referral No Information Medications Medication SIG (Take, Route, Frequency, Duration) Notes Start Date End Date Status trazodone hydrochloride 150 MG Oral Tablet ORAL trazodone hydrochloride 150 MG Oral TabletOriginal Medicationtrazodone hydrochloride 150 MG Oral Tablet *Reorder from [employer] for eRx and Interaction Alerts* 04/20/2019 Active aspirin 81 MG Delayed Release Oral Tablet ORAL aspirin 81 MG Delayed Release Oral TabletOriginal Medicationaspirin 81 MG Delayed Release Oral Tablet *Reorder from [employer] for eRx and Interaction Alerts* 04/20/2019 Active Plan Of Treatment No Information Insurance Providers Payer Name Payer Address Payer Phone Subscriber Number Group Number Insured Name Patient Relationship to Insured Coverage Start Date Coverage End Date Medicare Part B [place] [address] [place] [phone] [id number] ELIDA GREGORY Self - patient is the insured [facility] ([facility]) ATTN CLAIMS [address] [place] [address] [id number] ELIDA GREGORY Self - patient is the insured [facility] [address] [place], [place] [id number] ELIDA GREGORY Self - patient is the insured
--- OUTSIDE RECORDS SUMMARY | 2025-03-15 20:03 | XMS_ITS | Clinical Summary ---
Author Organization [facility] Address [address] [place] [address] Phone Care Team Providers Care Manager Economic Name Role Phone Ruddy Yang MD Primary Care Provider [phone] Allergies Active Allergy Reactions Criticality Noted Date [...] Ablation. DOI 05/25/[address] Jovan Beltran. [facility] remote monitoring. Permanent atrial fibrillation 04/04/2017 Benign [...] / Low and Medium Risk (1 of 2 - PCV) 1991 Influenza Vaccine (#1) 2025 04/26/2015, 2013 Insurance MEDICARE [facility] Care Teams Manager Economic Relationship Specialty Start Date End Date Ruddy Yang MD [address] [place] [address] PCP - General Internal Medicine 12/19/20
--- OUTSIDE RECORDS SUMMARY | 2025-03-15 20:03 | XMS_ITS | Clinical Summary ---
Author Organization [facility] [employer] Address [address] [address] Care Team Providers Care Food Tester Name Role Phone Ruddy Yang MD Primary Care Provider [phone] Source Comments [employer] [employer],non-owned Affiliates and Associated Physician Practices is amultiple site organization consisting of ambulatory clinics and hospital sitesin [place], [place], [place] and [place]. This disclosure is being madepursuant to the Care Everywhere program and may not contain all information available regarding this patient. 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 Gender Identity Not on file Sexual [...] - 1-dose 75+ series) 2016 COVID-19 VACCINE (1 - season) 2024 DEPRESSION SCREENING 08/26/2024 MEDICARE AWV CALENDAR YEAR 2024 INFLUENZA VACCINE (#1) 2025 2, 06/21/2020, 05/26/2019, Additional history exists HEPATITIS B [...] age to complete this topic Insurance MEDICARE [facility] MEDICARE MEDICARE SELF PAY NO INSURANCE Member Subscriber Plan / Payer (Ef fective for All Dates) Name:Elida Davidson Naty Member ID:Not on file Relation to Subscriber:Not on file Name:ELIDA DAVIDSON Subscriber ID:Not on file (Home) Address: [address] [place] [address] Payer ID:Not on file Group ID:Not on file Type:Self Pay Address: [facility] MANAGED MEDICARE ADV * Guarantor: ELIDA DAVIDSON Account Type Relation to Patient Date of Phone Billing Address Personal/Family Spouse [address] [place] [address] SELF PAY NO INSURANCE Member Subscriber Plan / Payer (Ef fective for All Dates) Name:Elida Davidson Naty Member ID:Not on file Relation to Subscriber:Not on file Name:ELIDA DAVIDSON Subscriber ID:Not on file (Home) Address: [address] [place] [address] Payer ID:Not on file Group ID:Not on file Type:Self Pay Address: [place], [place] SELF PAY NO INSURANCE Member Subscriber Plan / Payer (Ef fective for All Dates) Name:Elida Davdison Member ID:Not on file Relation to Subscriber:Not on file Name:ELIDA DAVIDSON Subscriber ID:Not on file (Home) Address: [address] [place] [address] [place] [address] Payer ID:Not on file Group ID:Not on file Type:Self Pay Address: [facility] MANAGED MEDICARE ADV Care Teams Food Tester Relationship Specialty Start Date End Date Ruddy Yang MD PCP - General 07/08/20
--- OUTSIDE RECORDS SUMMARY | 2025-03-15 20:03 | XMS_ITS | Clinical Summary ---
Author Organization [facility] Address [address], [facility] [address] [place] [address] Phone Care Team Providers Care Supervisor Crack Off Name Role Phone Provider, Not On File [...] drink = 0.6 oz pur e alcohol) [facility] Utilities Answer Date Recorded In the past 12 months has [employer], [employer], or water [employer] threatened to shut off services in your home? Patient declined 09/24/2023 Social Connection and Isolation Panel Answer Date Recorded In a typical week, how many times do you talk on the phone with family, friends, or neighbors? Patient declined 09/24/2023 How often do you get togethe r with friends or relatives? Patient declined 09/24/2023 How often do you attend jain or islam serv ices? Patient declined 09/24/2023 Do you belong to any clubs o r organizations such as jain groups, unions, fraternal or athletic groups, or [...] Answer Date Recorded PHQ-2 Score 0 [facility]/2019 [facility] Occupational Stress Questionnaire Answer Date [...] place to sleep or slept in a correction (including now)? Patient declined 09/24/2023 Sex and Gender Information Value Date Recorded Sex Assigned at Not on file Legal Sex Male 2:21 PM LOSS PREVENTION REPRESENTATIVE Gender Identity Not on file Sexual Orientation Not on file Last Filed Vital Signs Vital Sign Reading Time Taken Comments Blood Pressure 150/84 09/26/2023 8:00 AM LOSS PREVENTION REPRESENTATIVE Pulse 74 09/26/2023 8:00 AM LOSS PREVENTION REPRESENTATIVE Temperature 35.9 C (96.7 F) 09/26/2023 8:33 AM LOSS PREVENTION REPRESENTATIVE Respiratory Rate 20 09/26/2023 8:00 AM LOSS PREVENTION REPRESENTATIVE Oxygen Saturation 97% 09/26/2023 8:0 0 AM LOSS PREVENTION REPRESENTATIVE Inhaled Oxygen Concentration - - Weight 77.5 kg (170 lb 12.8 oz) 09/26/2023 5:55 AM LOSS PREVENTION REPRESENTATIVE daily weight Height 172.7 cm (5' 8) 09/24/2023 3:06 PM LOSS PREVENTION REPRESENTATIVE Body Mass Index 25.97 09/24/2023 3:06 PM LOSS PREVENTION REPRESENTATIVE Plan of Treatment Health Maintenance Due Date Last Done Comments Hepatitis C Virus (HCV) Screening 1940 Pneumococcal Immunization (50+ years) (1 of 2 - PCV) 1960 Zoster Immunization (1 of 2) 1991 Respiratory Syncytial Virus (RSV) Immunization (Adult) (1 - 1-dose 75+ series) 2016 SARS-COV-2 Immunization (3 - season) 2024 11/09/2020, 10/19/2020 Influenza Immunization (#1) 2025 09/0 08/2022, 05/21/2022, 04/19/2021, Additional history exists DTaP/Tdap/Td Immunization [...] patient's age to complete this topic Insurance [facility] MEDICARE [facility] Advance Directives * Full Code (Latest Code Status on File) Date Activated Date Inactivated Comments 09/24/2023 4:08 PM 09/26/2023 3:01 PM CPR-Full Cristiane tment: FULL ARREST: Attempt Resuscitation/CPR wit intubation and mechanical ventilation. PRE-ARREST: Use entire range of life support measures to stabilize the patient. Care Teams Supervisor Crack Off Relationship Specialty Start Date End Date Provider, Not On File MD PCP - General 09/26/23
--- OUTSIDE RECORDS SUMMARY | 2025-03-15 20:03 | XMS_ITS | Referral Summary ---
Author Organization [place] [address] [place] [phone] Care Team Providers Care Assessment Coordinator Name Role Phone Ruddy Yang MD Primary Care Provider [phone] Encounters Date Type Department Care Team Description 02/11/2025 Results Follow-Up [facility] Cardiology [address] [place] [address] [place] [phone] Nikhil Gar NP Transthoracic Echo (TTE) Complete W Doppler/CF 02/11/2025 9:15 AM CDT Ancillary Procedure [facility] Cardiology [address] [place] [address] [place] [phone] 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 heart failure (HCC) 02/11/2025 11:00 AM CDT Office Visit [facility] Cardiology [address] [place] [address] [place] [phone] Letitia Kumar NP 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); 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); Chronic coronary artery disease; ICD (implantable cardioverter-defibrill ator) in place; S/P TAVR (transcatheter aortic valve replacement); Permanent atrial fibrillation (HCC); Severe anemia 02/03/2025 9:45 AM CDT Office Visit [facility] Vascular at [address] [place] [address] Karli Ibrahim NP Primary hypertension (Primary Dx); Juxtarenal abdominal aortic aneurysm (AAA) without rupture; Hypercholesterolemia 01/29/2025 Telephone [facility] Gastroenterology at [address] [place] [phone] Jose MManpreetYamel 01/29/2025 Results Follow-Up [facility] Gastroenterology at [address] [place] [phone] Karey Dong MD Surgical pathology 01/20/2025 7:02 PM CDT - 01/23/2025 3:47 PM CDT Hospital Encounter [address] [address] Rosemary Kidd DO Petters, MD Michelle Croft Jelena, MD Nations, Matthew Austin, DO Kim, Eileen H., MD Severe anemia [D64.9] (Primary Dx); Gastrointestinal hemorrhage, unspecified gastrointestinal hemorrhage type; Occult GI bleeding; Juxtarenal abdominal aortic aneurysm (AAA) without rupture; Severe anemia Discharge Disposition: Discharge to home or self care 01/22/2025 12:30 PM CDT Anesthesia Event [address] [address] Romulo Agee MD 01/22/2025 12:00 PM CDT - 01/22/2025 12:50 PM CDT Surgery [address] [address] Karey Dong MD COLON CONTROL BLEEDING 01/07/2025 1:00 PM CDT Office Visit [facility] Cardiology [address] [place] [address] [place] [phone] Nikhil Gar NP 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 heart failure (HCC) (Primary Dx); 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; Chronic coronary artery disease; Permanent atrial fibrillation (HCC); Primary hypertension; Hypercholesterolemia; S/P TAVR (transcatheter aortic valve replacement) 01/06/2025 Orders Only [facility] Cardiology [address] [facility] [address] [place] [phone] Iker Ponce MD 01/04/2025 8:00 AM CDT Ancillary Procedure [facility] Cardiology [address] [place] [phone] ICD (implantable cardioverter-defibrill ator) in place; Permanent atrial fibrillation (HCC); 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; S/P AV josué ablation; Congestive heart failure, unspecified HF chronicity, unspecified heart failure type (HCC) 01/04/[address] [phone] Jarett Yousif MD 12/30/2024 Orders Only [address] [phone] Jraett Yousif MD ICD (implantable cardioverter-defibrill ator) in place (Primary Dx); Permanent atrial fibrillation (HCC); 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; S/P AV josué ablation; Congestive heart failure, unspecified HF chronicity, unspecified heart failure type (HCC) 12/30/2024 10:00 AM CDT Ancillary Procedure [address] [phone] Longstanding persistent atrial fibrillation (HCC); SSS (sick sinus syndrome) (HCC); Congestive heart failure, unspecified HF chronicity, unspecified heart failure type (HCC); 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; History of atrioventricular josué ablation 12/29/[address] [phone] Jarett Yousif MD from Last 3 Months Allergies Active Allergy [...] 09/02/2022 Assessment & Plan (07/03/2023 10:35 AM [employer]): Hearing test Flonase 2 sprays into each [...] 07/03/2023 Assessment & Plan (07/03/2023 10:35 AM VP [employer]): Hearing test Flonase 2 sprays into each [...] (07/11/2022): Added automatically from request for surgery [id number] Pain associated with wound 06/28/2022 S/P TAVR (transcatheter aortic valve replacement ) 05/16/2021 Hx of CABG 02/07/2021 Permanent atrial fibrillation 02/07/2021 ICD (implantable cardioverter-defibrillator) in place 02/07/2021 History of coronary artery stent placement 02/07 Biventricular ICD (implantab le cardioverter-defibrillator) in place 01/04/2021 Overview (10/28/2023): Yo [place] BIV ICD. Dx; CHF, SSS. Afib, AV Node Ablation. DOI 10/28/2023- Lynette. Chronic leads 05/25/2015. [place] remote monitoring. LV lead is a Medtronic lead and therefore the device is Not MRI conditional d/t NextInput products. Dr Elida Beltran-original device implanter in [...] drink = 0.6 oz pur e alcohol) [facility] Utilities Answer Date Recorded In the past 12 months has e Car in the Cloud, gas, oil, or water [employer] threatened to shut off services in your [...] often do you attend chur ch or adventist services? Never 01/21/2025 Do you belong to any clubs o r organizations such as caodaism groups, unions, fraternal or athletic groups, or [...] in the past 12 m [facility], were you homeless or living in a snf (including now)? No 01/21/2025 Personal Safety Answer Date Recorded Have you ever been in or are you currently in a harmful physical or emotional relationship or is someone making you feel afraid or unsafe? Denies 01/20/2025 Sex and Gender Information Value Date Recorded Sex Assigned at Not on file Legal Sex Male 1:59 AM [employer] Gender Identity Not on file Sexual Orientation [...] 02/11/2025 10:33 AM CDT Plan of Treatment Not on file Medical Devices Implanted Type Area Mine Car Repairer Device Identifier Shelf Expiration Date Model / Serial / Lot Icd ICD Heart Pacemaker Pacemaker Heart Description:PACEMAKER/ICD Stent Implanted:Qty: 2 Stent Heart Yo Vascular Defib Cardiac [id number] [place] Hf Df4 Is-4 Is-1 Cnc [id number] - [id number] - [id number] Implanted:Qty: 1 on 10/28/2023 by Eric Ojeda MD at [facility] Yo Vascular 08/25/2025 [id number] / [id number] / Procedures Procedure Name Priority Date/Time Associated [...] CLINICS [facility] Cardiology [address] [facility] [address] [address] [address] [facility] [address], [place] [address] P:[phone] P:[phone] Echocardiographic Report Patient Name: ELIDA RODAS W : 1940 Study Date: 02/11/2025 9:20:49 AM Gender: M Tech: DLS [facility] Provider: NIKHIL GAR Height(Cm): 173 BSA: 1.88 [...] FINDINGS: Interpretation Site: Exam was interpreted at [facility]. Left Ventricle: Normal left ventricular [...] [facility] Card[facility] [address] [facility] [address], [place] [address] [address] [facility] [address] [place], [place] [address] P:[phone] P:[phone] Echocardiographic Report Patient Name: ELIDA RODAS W : 1940 Study Date: 02/11/2025 9:20:49 AM Gender: M Tech: [facility] Location: [facility] Provider: NIKHIL GAR Height(Cm): 173 BSA: [...] FINDINGS: Interpretation Site: Exam was interpreted at [facility]. Left Ventricle: Normal left ventricular [...] CDT Nikhil Gar NP CV ECHO PROCEDURES [facility] al Result * (ABNORMAL) Hemoglobin and hematocrit (01/23/2025 11:28 AM CDT) Hgb 7.7(L) 13.0 - 17.5 g/dL Hct 24.5(L) 38.9 - 50.3 % [facility] ([place]) Blood 01/23/2025 11:2 8 AM CDT 01/23/2025 11:31 AM CDT us Zenia Vázquez MD LAB BLOOD ORDERABLES Final Resu lt [facility] ([place]) 1 [facility] Department of [employer] [place] [address] * (ABNORMAL) eGFR (01/23/2025 4:04 AM CDT) [...] BLOOD ORDERABLES Fi nal Result [facility] ([place]) 1 [facility] of [employer] [place] [address] * (ABNORMAL) Differential, auto (01/23/2025 4:04 AM [...] AM CDT 01/23/2025 4:59 AM CDT us Ekanga Greg Petters MD LAB BLOOD ORDERABLES Fi nal Result [facility] ([place]) 1 [facility] [place] [address] * (ABNORMAL) CBC with auto differential (01/23/2025 [...] Fi nal Result [facility] ([place]) 1 [facility] Department of [employer] [place] [address] * Magnesium (01/23/2025 4:04 AM CDT) Magnesium 1.7 1.4 - 2.5 mg/dL Blood 01/23/2025 4:04 AM CDT 01/23/2025 4:59 AM CDT us Celeste Velez MD LAB BLOOD ORDERABLES nal Result [facility] ([place]) 1 [facility] Department [place] [address] * (ABNORMAL) Comprehensive metabolic panel (01/23/2025 4:04 [...] Alk phos 26(L) 40 - 130 Units/L [facility] ([place]) ALT 10 7 - 55 Units/L [facility] ([place]) AST 24 10 - 50 Units/L [facility] ([place]) Comment: Hemolysis present. Results may be affected. Slightly Hemolyzed Specimen Blood 01/23/2025 4:04 AM CDT 01/23/2025 4:59 AM CDT Celeste Velez MD LAB BLOOD ORDERABLES nal Result [facility] ([place]) 1 [facility] Department [place] [address] * EGD (01/22/2025 11:51 AM CDT) Anatomical Region Laterality Modality Other Narrative Procedure Note Karey Dong MD - 01/22/2025 11:51 AM CDT [facility] Patient Name: Elida Rodas Procedure Date: 01/22/2025 11:51 AM Date of : 1940 Admit Type: Inpatient Age: 84 Gender: Male Attending MD: Karey Dong M.D. Room: [facility] ENDOSCOPY ROOM 2 Note Status: Finalized [...] procedure were verified by the physician, the communications supervisor and the transportation planning technician in the endoscopy suite. Mental Status [...] passed under direct vision. The Endoscope [id number] was introduced through the mouth, and advanced [...] 11:51 AM Procedure Code(s): --- Professional --- 41243, Esophagogastroduodenoscopy, flexible, transoral; with biopsy, single or multiple --- Technical --- 53444, Esophagogastroduodenoscopy, flexible, transoral; with biopsy, single or multiple Diagnosis Code(s): --- Professional --- K21.00, Gastro-esophageal reflux disease with esophagitis, without bleeding D50.0, Iron deficiency anemia secondary to blood loss (chronic) K92.1, Melena (includes Hematochezia) --- Technical --- K21.00, Gastro-esophageal reflux disease with esophagitis, without bleeding D50.0, Iron deficiency anemia secondary to blood loss (chronic) K92.1, Melena (includes Hematochezia) CPT copyright 2020 [employer] [place] [employer]. All rights reserved. The codes documented in this report are preliminary and upon logistics supply officer reviewmay be revised to meet current compliance requirements. Recognized by the [place] [employer] Gastrointestinal End[employer] for promoting quality in endoscopy us Karey Dong MD ENDOSCOPY PROCEDURES Final Resul t * Colonoscopy (01/22/2025 11:49 AM CDT) Anatomical Region Laterality Modality Other Narrative Procedure Note Karey Dong MD - 01/22/2025 11:49 AM CDT [facility] Patient Name: Elida Rodas Procedure Date: 01/22/2025 11:49 AM Date of : 1940 Admit Type: Inpatient Age: 84 Gender: Male Attending MD: Karey Dong M.D. Room: [facility] END[facility]COPY [facility] 2 Note Status: Finalized [...] coagulation (APC). Clip (MRconditional) was placed. Clip java sybase developer: [employer]. - One 8 mm polyp in the [...] procedure were verified by the physician, the communications supervisor and the transportation planning technician in the endoscopy suite. Mental Status [...] under direct vision. The Pediatric Colonoscope [id number] was introducedthrough the anus and advanced to [...] clip was successfully placed (MR conditional). Clip java sybase developer: [employer]. There was no bleeding at the end [...] 11:49 AM Procedure Code(s): --- Professional --- 11624, Colonoscopy, flexible; with control of bleeding, any method --- Technical --- 11204, Colonoscopy, flexible; with control of bleeding, any [...] perforation orabscess without bleeding CPT copyright 2020 [employer] [place] [employer]. All rights reserved. The codes documented in this report are preliminary and upon logistics supply officer reviewmay be revised to meet current compliance requirements. Recognized by the [place] [employer] Gastrointestinal [employer] for promoting quality in endoscopy us Karey Dong MD ENDOSCOPY PROCEDURES Final Resul t * Surgical pathology (01/22/2025 9:52 AM CDT) Tissue ([place], Biopsy) 01/22/2025 12:[address] PATH[address]Y [facility] ([place]) - 01/26/2025 2:52 PM CDT EPIC results best viewed via link to PDF [facility] Department of Pathology [address] [place] [address] Note to Patients: This report may contain [...] Final Report Patient Name: ELIDA RODAS Address: [address] [place] [phone] Gender: M : 1940 (Age: 84) Service: Medical Location: [facility] Hospital #: [id number] Patient Type: [facility] Taken: 01/22/2025 Received: 01/25/2025 Accessioned: 01/25/2025 Reported: [...] determined by the Surgical Pathology Department at [facility] as part of an ongoing dairy quality assurance officer program and in compliance with federally mandated [...] characteristics determined by the Surgical Pathology Department [facility]. It has not been cleared or approved by the U. S. Food and Drug Administration. Note for decalcified specimens: This assay has not been validated on decalcified tissues. Results should be interpreted with caution given the possibility of false negativity on decalcified specimens Karey Dong MD LAB PATHOLOGY ORDERABLES Final R esult PATHOLOGY [facility] ([place]) 1 [place], [place] [id number] * (ABNORMAL) eGFR (01/22/2025 4:18 AM CDT) [...] MD LAB BLOOD ORDERABLES Fi nal Result [facility] ([place]) 1 [facility] Department [place] [address] * Differential, auto (01/22/2025 4:18 AM CDT) [...] AM CDT 01/22/2025 5:30 AM CDT us eCleste Velez MD LAB BLOOD ORDERABLES Fi nal Result [facility] ([place]) 1 [facility] Department [place] [address] * (ABNORMAL) CBC with auto differential (01/22/2025 [...] RDW SD 63.9(H) 35.7 - 48.1 fL [facility] NRBC abs 0.00 0.00 - 0.01 K/cumm [facility] Blood 01/22/2025 4:18 AM CDT 01/22/2025 5:30 AM CDT Celeste Velez MD LAB BLOOD ORDERABLES Fi nal Result Performing Organization Address City/[facility]/ZIP Co de Phone Number [facility] ([place]) 1 [facility] [place] [address] * Magnesium (01/22/2025 4:18 AM CDT) Pathologist [facility] Magnesium 1.7 1.4 - 2.5 mg/dL Blood 01/22/2025 4:18 AM CDT 01/22/2025 5:29 AM CDT Celeste Velez MD LAB BLOOD ORDERABLES Fi nal Result Performing Organization Address City/[facility] Co de Phone Number [facility] ([place]) 1 [facility] [place] [address] * (ABNORMAL) Comprehensive metabolic panel (01/22/2025 4:18 AM CDT) Sodium 138 135 - 145 mmol/L Potassium, pl 3.3 3.3 - 4.9 mmol/L [facility] ([place]) Chloride 103 97 - 110 mmol/L [facility] ([place]) CO2 20(L) 22 - 32 mmol/L [facility] ([place]) Anion gap 15 2 - 15 mmol/L [facility] ([place]) BUN 22 6 - 25 [...] 6.1(L) 6.5 - 8.5 g/dL [facility] ([place]) Albumin 3.6 3.5 - 5.0 g/dL [facility] ([place]) Alk phos 26(L) 40 - 130 Units/L [facility] ([place]) ALT 9 7 - 55 Units/L [facility] [place] AST 17 10 - 50 Units/L [facility] ([place]) Blood 01/22/2025 4:18 AM CDT 01/22/2025 5:29 AM CDT us Celeste Velez MD LAB BLOOD ORDERABLES Fi nal Result [facility] 1 [facility] Department of Laboratories [place], [place] [id number] * (ABNORMAL) Hemoglobin and hematocrit (01/21/2025 12:44 PM CDT) Hgb 9.2(L) 13.0 - 17.5 g/dL Hct 28.3(L) 38.9 - 50.3 % [facility] ([place]) Blood 01/21/2025 12:4 4 PM CDT 01/21/2025 12:48 PM CDT us Celeste Velez MD LAB BLOOD ORDERABLES Fi nal Result [facility] [place]) 1 [facility] [employer] [place] [address] * (ABNORMAL) Protime-INR (01/21/2025 12:44 PM CDT) PT 17.8(H) 9.7 - 13.0 sec [facility] ([place]) INR 1.63(H) 0.90 - 1.20 [facility] ([place]) Comment: Interpretive data Oral anticoagulant therapeutic ranges: Venous thromboembolism prophylaxis or treatment: 2.0-3.0 CARDIOLOGY Standard range: 2.0-3.0 High-intensity range: 2.5-3.5 Refer to indication-specific guidelines for appropriate target ranges for prosthetic heart valve replacement. Current interpretive data was last revised on 2019. Blood 01/21/2025 12:4 4 PM CDT 01/21/2025 12:48 PM CDT us Kailyn FAIRCHILD LAB BLOOD ORDERABLES Fin al Result Performing Organization Address City/[facility] Co de Phone Number [facility] ([place]) [address] [place] [address] [employer] [place] [address] * (ABNORMAL) eGFR (01/21/2025 5:39 AM CDT) [...] BLOOD ORDERABLES Fi nal Result [facility] ([place]) 1 [facility] Department [place] [address] * Differential, auto (01/21/2025 5:39 AM CDT) [...] BLOOD ORDERABLES Fi nal Result [facility] ([place]) 1 [facility] [place] [address] * Iron profile w/ IBC (01/21/2025 5:39 AM CDT) Iron 98 50 - 150 mcg/dL TIBC 285 250 - 400 mcg/dL [facility] ([place]) Transferrin saturation 34 20 - 50 % [facility] ([place]) Blood 01/21/2025 5:39 AM CDT 01/21/2025 5:52 AM CDT Celeste Velez MD LAB BLOOD ORDERABLES Fi nal Result [facility] ([place]) 1 [facility] of [employer] [place] [address] * (ABNORMAL) CBC with auto differential (01/21/2025 [...] RDW CV 17.4(H) 11.1 - 14.9 % [facility] ([place]) RDW SD 62.3(H) 35.7 - 48.1 fL [facility] ([place]) NRBC abs 0.00 0.00 - 0.01 K/cumm [facility] ([place]) Blood 01/21/2025 5:39 AM CDT 01/21/2025 5:52 AM CDT us Celeste Velez MD LAB BLOOD ORDERABLES Fi nal Result [facility] ([place]) 1 [facility] Department [place] [address] * (ABNORMAL) Hemoglobin and hematocrit (01/21/2025 5:39 AM CDT) Hgb 8.1(L) 13.0 - 17.5 g/dL Hct 25.1(L) 38.9 - 50.3 % [facility] ([place]) Blood 01/21/2025 5:39 AM CDT 01/21/2025 5:52 AM CDT Celeste Velez MD LAB BLOOD ORDERABLES Fi nal Result [facility] ([place]) 1 [facility] [employer] [place] [address] * Magnesium (01/21/2025 5:39 AM CDT) Magnesium 1.8 1.4 - 2.5 mg/dL Blood 01/21/2025 5:39 AM CDT 01/21/2025 5:52 AM CDT Celeste Velez MD LAB BLOOD ORDERABLES Fi nal Result Performing Organization Address City/[facility]/ZIP Co de Phone Number [facility] ([place]) 1 [facility] [employer] [place] [address] * Lactate dehydrogenase (LD) (01/21/2025 5:39 AM CDT) Lactate dehydrogenase (LDH) 224 100 - 250 Units/L Blood 01/21/2025 5:39 AM CDT 01/21/2025 5:52 AM CDT Celeste Velez MD LAB BLOOD ORDERABLES Fi nal Result Performing Organization Address City/[facility]/ZIP Co de Phone Number [facility] ([place]) 1 [facility] [employer] [place] [address] * Haptoglobin (01/21/2025 5:39 AM CDT) Haptoglobin 68 30 - 200 mg/dL Comment:Testing performed by : [facility], [address] [place] [address], [place]., [address] Blood 01/21/2025 5:39 AM CDT 01/21/2025 9:08 AM CDT Celeste Velez MD LAB BLOOD ORDERABLES Fi nal Result [facility] ([place]) 1 [place] [address] * Folate (01/21/2025 5:39 AM CDT) Pathologist [facility] Folic acid >20.0 >=5.0 ng/mL Comment:Slightly Hemolyzed S pecimen. Results may be affected. Blood 01/21/2025 5:39 AM CDT 01/21/2025 5:52 AM CDT Celeste Velez MD LAB BLOOD ORDERABLES Fi nal Result [facility]IOR [facility] ([place] [address] [place] [address] * Ferritin (01/21/2025 5:39 AM CDT) Pathologist [facility] Ferritin 61 30 - 400 ng/mL Blood 01/21/2025 5:39 AM CDT 01/21/2025 5:52 AM CDT Celeste Velez MD LAB BLOOD ORDERABLES Fi nal Result [facility]IOR [facility] ([place]) [address] [place] [address] [employer] [place] [address] * Vitamin B12 (01/21/2025 5:39 AM CDT) Pathologist [facility] Vitamin B12 688 230 - 1,250 pg/mL Blood 01/21/2025 5:39 AM CDT 01/21/2025 5:52 AM CDT Celeste Velez MD LAB BLOOD ORDERABLES Fi nal Result [facility] ([place]) 1 [place] [address] * (ABNORMAL) Comprehensive metabolic panel (01/21/2025 5:39 [...] MD LAB BLOOD ORDERABLES Fi nal Result [facility] ([place] [address] Department [place] [address] * Urinalysis reflex to microscopic and culture [...] tendency for uric acid stone formation. Source: [facility] Current Interpretive Data was last revised on [...] 4:38 AM CDT 01/21/2025 4:43 AM CDT us Celeste Velez MD LAB MICROBIOLOGY - GENE RAL ORDERABLES Final Result [facility] 1 [facility] [place] [address] * Transfuse RBC (01/21/2025 4:29 AM CDT) Blood Celeste Velez MD BLOOD TRANSFUSION ORDER AVEL Final Result [facility] ([place]) 1 [facility] of [employer] [place] [address] * Prepare RBC: 1 Units (01/21/2025 1:23 AM CDT) Units requested 1 Units requested Ready [facility] ([place]) Blood 01/21/2025 1:23 AM CDT 01/21/2025 1:23 AM CDT Narrative [facility] ([place]) - 01/21/2025 1:24 AM CDT Are special requirements needed? (All products are leukoreduced and CMV- safe)->No Celeste Velez MD BLOOD BANK PRODUCT ORDE RABKENIA Final Result [facility] ([place]) 1 [facility] [employer] [place] [address] * Prepare RBC (01/21/2025 1:16 AM CDT) Unit Number [id number] Product code [id number] [facility] ([place]) Blood Expiration Date [facility] ([place]) Product Blood Type (for scanning) 6200 [facility] ([place]) Product Blood Type APOS [facility] ([place]) Dispense Status DISPENSED [facility] ([place]) us Celeste Velez MD BLOOD BANK PRODUCT ORDE RABKENIA Final Result [facility] ([place]) 1 [facility] [employer] [place] [address] * (ABNORMAL) Hemoglobin and hematocrit (01/21/2025 12:01 AM CDT) Hgb 6.8(L) 13.0 - 17.5 g/dL Hct 21.1(L) 38.9 - 50.3 % [facility] ([place]) Blood 01/21/2025 12:0 1 AM CDT 01/21/2025 12:12 AM CDT us Celeste Velez MD LAB BLOOD ORDERABLES Fi nal Result [facility] [place]) 1 [facility] [place] [address] * CT Chest Abdomen Pelvis WO Contrast [...] Arnold Garduno M.D. KT: REDD Report ID: [id number] Reading Location: [id number] Procedure Note Arnold Garduno MD - 01/21/2025 [...] Arnold Garduno M.D. KT: KT Report ID: [id number] Reading Location: [place] [address] Celeste Velez MD IMG CT PROCEDURES Final Result * ECG 12 lead (01/20/2025 9:11 PM CDT) 01/20/2025 9:11 PM CDT Narrative [facility] - 01/21/2025 2:35 PM CDT Vent Rate: 75 bpm RR Interval: 790 msec MS Interval: 0 msec QRS Duration: 163 msec QT Interval: 480 msec QTC Interval: 510 msec P-R-T Melvin: [phone] - -86 - 89 degrees IMPRESSION: ELECTRONIC VENTRICULAR PACEMAKER WITH OCCASIONAL PVCS ABNORMAL RHYTHM ECG PVCS NEW Electronically Signed By: Corina Valentin MD Celeste Velez MD ECG ORDERABLES Final R esult Performing Organization Address City/[facility]/ZIP Co de Phone Number [facility] * ABO / Rh Confirmation Testing (01/20/2025 8:20 PM CDT) ABO/Rh Confirmation AB Positive [facility] Blood 01/20/2025 8:20 PM CDT 01/20/2025 8:23 PM CDT Celeste Velez MD LAB BLOOD ORDERABLES Fi nal Result [facility] ([place]) 1 [facility] [place] [address] [facility] * (ABNORMAL) Pro B-type natriuretic peptide [...] BLOOD ORDERABLES Fi nal Result [facility] [place]) 5 [facility] [place] [address] * (ABNORMAL) Troponin T high-sensitivity [...] ORDERABLES Fi nal Result Performing Organization Address City/[facility]/ZIP Co de Phone Number [facility] ([place]) 1 [facility] [place] [address] * (ABNORMAL) eGFR (01/20/2025 7:21 PM CDT) [...] Fi nal Result [facility] ([place]) 1 [facility] Department [place] [address] * (ABNORMAL) Differential, auto (01/20/2025 7:21 PM [...] Neutrophil pct 70.1 % [facility] ([place]) Comment: Interpretive Data Percent cell count reference [...] ORDERABLES Fi nal Result Performing Organization Address City/[facility]/ZIP Co de Phone Number [facility] ([place]) 1 [facility] [place] [address] * (ABNORMAL) CBC with auto differential (01/20/2025 [...] ORDERABLES Fi nal Result Performing Organization Address City/[facility]/ZIP Co de Phone Number [facility] ([place]) 1 [facility] of [employer] [place] [address] * ABO/Rh (01/20/2025 7:21 PM CDT) ABO/Rh AB Positive Blood 01/20/2025 7:21 PM CDT 01/20/2025 7:25 PM CDT [facility]ative [facility] - 01/20/2025 8:09 PM CDT Has the patient had Daratumumab or Isatuximab in the past 6 months?->Unknown Celeste Velez MD LAB BLOOD BANK TEST ORD ERABLES Final Result Performing Organization Address [facility] Co de Phone Number [facility]IOR [facility] ([place]) [address] [place] [address] [employer] [place] [address] * Crossmatch (01/20/2025 7:21 PM CDT) Crossmatch Compatible [facility] ([place]) Unit number for crossmatch [id number] [facility] ([place]) Blood 01/20/2025 7:21 PM CDT 01/20/2025 7:25 PM CDT Celeste Velez MD LAB BLOOD BANK TEST ORD ERABLES Final Result Performing Organization Address City/[facility]/ZIP Co de Phone Number [facility]IOR [facility] ([place]) [address] [place] [address] [employer] [place] [address] * Antibody screen (01/20/2025 7:21 PM CDT) Kylee, indirect, Gel Interpretation Negative ABSC Blood 01/20/2025 7:21 PM CDT 01/20/2025 7:25 PM [address] [facility] ([place]) - 01/20/2025 8:09 PM CDT Has the patient had Daratumumab or Isatuximab in the past 6 months?->Unknown Celeste Velez MD LAB BLOOD BANK TEST ORD ERABLES Final Result [facility] ([place]) 1 [place] [address] * Phosphorus (01/20/2025 7:21 PM CDT) Pathologist [facility] Phosphorus, pl 3.1 2.3 - 4.5 mg/dL Blood 01/20/2025 7:21 PM CDT 01/20/2025 7:25 PM CDT Celeste Velez MD LAB BLOOD ORDERABLES Fi nal Result Performing Organization Address City/[facility]/ZIP Co de Phone Number [facility] ([place]) 1 [facility] [employer] [place] [address] * Magnesium (01/20/2025 7:21 PM CDT) [facility] Magnesium 1.7 1.4 - 2.5 mg/dL Blood 01/20/2025 7:21 PM CDT 01/20/2025 7:25 PM CDT Celeste Velez MD LAB BLOOD ORDERABLES Fi nal Result Performing Organization Address City/[facility]/ZIP Co de Phone Number [facility] ([place]) 1 [facility] [place] [address] * (ABNORMAL) Comprehensive metabolic panel (01/20/2025 7:21 PM CDT) [facility] Sodium 137 135 - 145 mmol/L Potassium, pl 4.1 3.3 - 4.9 mmol/L [facility] ([place]) Chloride 101 97 - 110 mmol/L [facility] ([place]) CO2 23 22 - 32 mmol/L [facility] ([place]) Anion gap 14 2 - 15 mmol/L [facility] ([place]) BUN 26(H) 6 - 25 mg/dL [facility] ([place]) Creatinine 1.43(H) 0.80 - 1.30 mg/dL CERNER [...] Fi nal Result [facility] ([place]) 1 [facility] [place] [address] * BMP - Basic Metabolic Panel (7) (01/05/2025 9:41 AM CDT) Historical Provider LAB BLOOD ORDERABLES Lucia l Result * DEVICE CHECK - REMOTE (01/04/2025 1:06 PM CDT) Anatomical Region Laterality Modality Other Narrative 01/08/2025 10:41 AM CDT [place] BIV ICD. Dx; CHF, SSS. Afib, AV Node Ablation. DOI 10/28/2023-Santiagoanda. Chronic leads 05/25/2015. Sav remote monitoring. Unscheduled [...] with Dr. Yousif 05/20/2025. Ning Johansen, TRI us Jarett Yousif MD [facility] CARDIAC SERVICES PROC EDURES Final Result * DEVICE CHECK - IN OFFICE (12/30/2024 9:48 AM CDT) Anatomical Region Laterality Modality Other Narrative 01/08/2025 10:39 AM CDT Yo [place] BIV ICD. Dx; CHF, SSS. Afib, AV Node Ablation. DOI 10/28/2023-Santiagochente. Chronic leads 05/25/2015. Sav remote monitoring. LV lead is a Medtronic lead and therefor the device is Not MRI conditional d/t [employer] products. Supervising MD: Dr Whittaker. Left pectoral [...] based on patient's response to today's adjustments. [place] remote f/u 04/06/2025. Ning Johansen RN Jarett Yousif MD CV CARDIAC SERVICES PROC EDURES Final Result from Last 3 Months Insurance UHC MEDICARE ADVANTAGE MEDICARE [facility] MEDICARE ADVANTAGE [facility] MEDICARE ADVANTAGE Advance Directives For more information, please contact: [phone] * Full Code (Latest Code Status on File) Date Activated Date Inactivated Comments 01/22/2025 11:51 AM 01/23/2025 7:53 PM * Full Code Date Activated Date Inactivated Comments 01/22/2025 11:47 AM 01/22/2025 11:51 AM * Full Code Date Activated Date Inactivated Comments 01/20/2025 7:14 PM 01/22/2025 11:47 AM Care Teams Assessment Coordinator Relationship Specialty Start Date End Date Ruddy Yang MD [address] [place] [address] PCP - General Internal Medicine 01/02/21
--- OUTSIDE RECORDS SUMMARY | 2025-03-15 20:04 | XMS_ITS | Data Portability ---
Author Organization [facility], [address] [facility] ([place]) Address [address] [address] Care Team Providers Care Machine Cloth Measurer Name Role Phone LYNDSAY BERNARD Primary Care [...] nortriptyli ne 10 mg capsule 2023 024 [email or web address] [facility] [address], [address], 14:03:08 Patient TargetsNo targets recorded. Patient InstructionsNo instructions recorded. Reason for Referral None Reported. Results Created Date Observation Date Name Description Value Unit Range Abnormal Flag Note LastModifiedBy Organization Detail LastModifiedTime 12/20/1903/01/2022 imagi ng/marielos thomson tic resul t No observ ation record ed. [email or web address] Not Available 02:20:37 Result Notes None recorded. 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 Please review this document and add these problems to the patient's chart manually as needed. Problem Notes None recorded. Medical Equipment None Reported. Allergies Allergen ID Allergen Name Allergen Category Reaction Reaction Severity Criticality Documentation Date Start Date Code Code System Note Provider Name and Address Organization Details Recorded Time 782994 Oxycontin medicatio n Not available Not available Not available 09/23/20232015 12837 6 RxNorm Comme nt: React ion Date: 30 Nov 2010 ; Not Available [facility] 4 22:09:33 608573 Substance with sulfonami de structure and antibacte rial mechanism of action (substanc e) medicatio n Not available Not available Not available 09/23/20232015 33239 8003 SNOMED Comme nt: React ion Date: 29 May 2011 ; Not Available [facility] 4 22:09:33 Medications Name Sig Start Date [...] index (BMI) Body height Heart rate Systolic And Diastolic Provider Name and Address Organization Details Last Updated DateTime 04/30/2024 39164.74 g 24.7 kg/m2 173.99 cm 61 /min 124/68 mm[Hg] Tony Fournier [facility] 04/30/2024 13:10:51 Social History None recorded. Functional Status None recorded. Mental Status None recorded. Family History Nothing Reported. Medical History No medical history recorded. Past Encounters Encounter ID Performer Location Encounter Start Date Encounter Closed Date Diagnosis/Indication Diagnosis SNOMED-CT Code Diagnosis ICD10 Code Diagnosis Note [id number] Mayra Rowell MD [facility] ([place]) [address] [place] [address] 04/30/2024 13:03:23 05/03/2024 06:26:37 Idiopathic progressive polyneuropathy 85907654 G60.3 Health Concerns Section Related Observation LastModified by Organization Detai ls LastModified Time None Recorded Concern Status LastModified by Organization Details LastModified Time None Recorded Advance Directives Directive None Recorded Payers Insurance Date Sequence Insurance Name Policy Number Policy De Jesus Covered Member ID De Jesus Member ID Guarantor Name 05/03/2024 1 [facility] (MEDICARE REPLACEMENT/A DVANTAGE - PPO) [id number] Jovan Sabillonhugo [id number] Jovan Johnson Clark Notes Date Note Type Note Provider [...] or a wheelchair.ELISABETH Rowell MD [address] [place] [address], [phone], [facility] 05/01/2024 19:00:20
--- NOTE | 2025-03-15 20:07 | ED.NEUROSD ---
HPI - Neuro Symptoms/Deficit General Chief Complaint: Altered Mental Status Stated Complaint: sick sx Time Seen by Provider: 03/15/25 20:02 Related Data Home Medications ?Medication ?Instructions ?Recorded ?Confirmed ?Last Taken ?Type aspirin 81 mg tablet,delayed 81 mg PO DAILY 08/17/19 01/28/25 01/28/25 History release (Adult Low Dose Aspirin) atorvastatin 40 mg tablet 40 mg PO DAILY 08/17/19 01/28/25 01/28/25 History carvedilol 12.5 mg tablet (Coreg) 12.5 mg PO Q12H 08/17/19 01/28/25 01/28/25 History pregabalin 100 mg capsule (Lyrica) 100 mg PO TID 08/17/19 01/28/25 01/28/25 History tamsulosin 0.4 mg capsule (Flomax) 0.4 mg PO DAILY 08/17/19 01/28/25 01/28/25 History finasteride 5 mg tablet 5 mg PO DAILY 10/20/19 01/28/25 01/28/25 History furosemide 40 mg tablet 40 mg PO QAM 10/20/19 01/28/25 01/28/25 History allopurinol 100 mg tablet 100 mg PO DAILY 06/28/21 01/28/25 01/28/25 History trazodone 50 mg tablet 50 mg PO HS PRN Insomnia 09/30/21 01/28/25 Unknown History apixaban 2.5 mg tablet (Eliquis) 2.5 mg PO BID 04/09/23 01/28/25 01/28/25 History tramadol 50 mg tablet 50 mg PO TID 04/09/23 01/28/25 01/28/25 History Allergies Allergy/AdvReac Type Severity Reaction Status Date / Time oxycodone (From OxyContin) Allergy Mild Rash Verified 03/15/25 20:57 Sulfa (Sulfonamide Allergy Unknown Rash Verified 03/15/25 20:57 Antibiotics) Review of Systems Review of Systems: All systems reviewed & are unremarkable except as noted in HPI and below Constitutional: Constitutional: Reports no additional constitutional complaints Eyes: Eyes: Reports no additional eye complaints ENT: Reports system reviewed and no additional complaints, except as documented Cardiovascular: Cardiovascular: Reports no additional cardiovascular complaints Respiratory: Respiratory: Reports no additional respiratory complaints Gastrointestinal: Gastrointestinal: Reports no additional gastrointestinal complaints Genitourinary: Genitourinary: Reports no additional male genitourinary complaints Musculoskeletal: Musculoskeletal: Reports no additional musculoskeletal complaints Integumentary/Breasts: Skin/Breast: Reports system reviewed and no additional complaints, except as docu Neurologic: Reports system reviewed and no additional complaints, except as documented Psychiatric: Psychiatric: Reports no additional psychiatric complaints Endocrine: Endocrine: Reports no additional endocrine complaints Hematologic/Lymphatic: Hematologic/Lymphatic: Reports no additional hematologic/lymphatic complaints Allergic/Immunologic: Allergic/Immunologic: Reports no additional allergic/immunologic complaints [facility] Past Medical History Medical History Chronic GERD BPH (benign prostatic hyperplasia) Acute on chronic blood loss anemia High cholesterol Peripheral neuropathy Myocardial infarction x3 Cardiac defibrillator in place Pacemaker KIARRA (obstructive sleep apnea) Patient stated that he does not Use CPAP PVD (peripheral vascular disease) Hypertension Gout REESE (generalized anxiety disorder) Erectile dysfunction COPD (chronic obstructive pulmonary disease) CKD (chronic kidney disease), stage III CHF (congestive heart failure) CAD (coronary artery disease) Atrial fibrillation AAA (abdominal aortic aneurysm) Surgical History Surgical History History of AAA (abdominal aortic aneurysm) repair AICD (automatic cardioverter/defibrillator) present S/P CABG (coronary artery bypass graft) Four vessel CABG History of coronary artery stent placement 2 stents History of bladder surgery TURB procedure 2009 History of transcatheter aortic valve replacement (TAVR) Status post placement of cardiac pacemaker History of tonsillectomy and adenoidectomy History of aortic valve repair History of hernia repair incisional History of back surgery History of cholecystectomy History of heart valve replacement Family History Family History Father Family history of aortic aneurysm Acute myocardial infarction Mother Parkinsons disease Social History Social History Social History: The patient is and lives with his . The patient stated that he quit smoking many years ago. The patient has 4 children. His is his durable power cad detailer for health. He is a former smoker. He denies any alcohol marijuana or illicit drugs. 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 Code status full code Smoking packs per day: 2 Smoking cigarettes per day: 40.0 Years smoked: 45 Smoking pack-years: 90.00 Smoking status: Former smoker Second hand tobacco smoke exposure: No Alcohol intake: former Drinks per week: 3 Substance use: never Substance use type: does not use Lack of Transportation: No Lack of Food: Never True Current Housing: I Have Housing Concerned About Future Housing: No Difficulty Paying Gas/Electric Bills: No Difficulty Paying for Meds: No Currently Unemployed: No Education: Don't Know Difficulty w/ Childcare or Family Care: No Living arrangements: with family Additional living arrangements comments: . 4 Children. Occupation/Education: retired Additional occupation/education comments: Prior Occupation: [employer]. Gender identity (if verbalized by the patient): Male Spiritual care concerns: No Course Vital Signs Vital signs: Vital Signs Temperature 36.1 C L 03/15/25 20:04 Pulse Rate 88 03/15/25 20:04 Respiratory Rate 18 03/15/25 20:04 Blood Pressure 122/74 03/15/25 20:04 Pulse Oximetry 94 03/15/25 20:04 Oxygen Delivery Room Air 03/15/25 20:04 Temperature 36.1 C L 03/15/25 20:04 Pulse Rate 101 H 03/15/25 21:17 Respiratory Rate 31 H 03/15/25 21:17 Blood Pressure 120/78 03/15/25 21:16 Pulse Oximetry 93 03/15/25 21:17 Oxygen Delivery Room Air 03/15/25 20:20 MDM - Neuro Symptoms/Deficit Lab Data 03/15/25 20:34 03/15/25 20:34 Labs: Lab Results 03/15/25 03/15/25 03/15/25 Range/Units 20:03 20:27 20:34 WBC 8.2 (4.8-10.8) K/mm3 RBC 3.07 L (4.70-6.10) M/mm3 Hgb 9.0 L (12.4-15.3) g/dL Hct 28.9 L (37.0-46.0) % MCV 94.1 (78.0-102.0) fL MCH 29.3 (27.0-31.0) pg MCHC 31.1 L (32-36) g/dL RDW 19.8 H (11.6-14.4) % Plt Count 121 L (150-420) K/mm3 MPV 10.2 (8.7-11.0) fl Immature Gran % (Auto) 0.5 H (0.0-0.0) % Neut % (Auto) 77.9 H (50.0-70.0) % Lymph % (Auto) 8.4 L (18.0-42.0) % Faulk % (Auto) 12.7 H (2.0-11.0) % Eos % (Auto) 0.1 L (1.0-6.0) % Baso % (Auto) 0.4 (0.0-1.0) % Lymph # (Auto) 0.69 L (1.10-4.50) K/mm3 Faulk # (Auto) 1.04 H (0.10-0.90) K/mm3 Eos # (Auto) 0.01 L (0.02-0.50) K/mm3 Baso # (Auto) 0.03 (0.00-0.10) K/mm3 Abs Immat Gran (auto) 0.04 H (0.00-0.00) K/mm3 Absolute Neuts (auto) 6.38 (1.70-7.20) K/mm3 Absolute Nucleated RBC 0.00 (0.00-0.00) K/mm3 Nucleated RBC % 0.0 (0-0.0) % PT 13.4 H (9.50-12.1) Seconds INR 1.2 APTT 30.8 H (23.9-30.70) Sec Sodium 136 L (137-145) mmol/L Potassium 4.5 (3.4-5.0) mmol/L Chloride 101 (98-107) mmol/L Carbon Dioxide 26 (22-30) mmol/L Anion Gap 9 (4-12) mmol/L BUN 22 H (9-20) mg/dL Creatinine 1.39 H (0.7-1.3) mg/dL Estim Creat Clear Calc 35 ml/min Estimated GFR 49 L (59 - ) Glucose 107 (65-110) mg/dL POC Capillary Glucose 114 H (65-105) mg/dl Calculated Osmolality 285 (285-295) mOsm/kg Lactic Acid 2.5 H (0.4-2.0) mmol/L Calcium 8.9 (8.4-10.2) mg/dL Total Bilirubin 2.1 H (0.2-1.3) mg/dL AST 33 (17-59) U/L ALT 22 (6-50) U/L Alkaline Phosphatase 44 (38-126) U/L Troponin I 0.030 (0.000-0.034) ng/mL Total Protein 6.8 (6.3-8.2) g/dL Albumin 3.8 (3.5-5.1) g/dL Urine Color Yellow (Yellow) Urine Appearance Clear (Clear) Urine pH 6.0 (5.0-8.0) Ur Specific [place] 1.010 (1.010-1.020) Urine Protein Negative (Negative) Urine Glucose (UA) Negative (Negative) Urine Ketones Trace H (Negative) Ur Blood (Man) Negative (Negative) Urine Nitrate Negative (Negative) Urine Bilirubin Negative (Negative) Urine Urobilinogen 0.2 (0.2-1.0) mg/dL Leukocyte Esterase Rfl Negative (Negative) TESSIE/UL Discharge Plan Discharge Clinical Impression: Subdural hemorrhage, Acute CVA (cerebrovascular accident) Patient Disposition: Acute Care Hospital Condition: Critical Patient Language: Ukrainian Prescriptions: No Action ipratropium-albuterol 0.5 mg-3 mg(2.5 mg base)/3 mL solution for nebulization 3 ml inhalation Q6H PRN (Reason: shortness of breath) Qty: 180 0RF furosemide 20 mg tablet 20 mg PO DAILY Qty: 30 0RF allopurinol 100 mg tablet 100 mg PO DAILY trazodone 50 mg tablet 50 mg PO HS PRN (Reason: Insomnia) tramadol 50 mg tablet 50 mg PO TID Eliquis 2.5 mg tablet 2.5 mg PO BID furosemide [Lasix] 40 mg tablet 40 mg PO DAILY Qty: 3 0RF Rx Instructions: Additional dosage for 3 days tamsulosin [Flomax] 0.4 mg capsule 0.4 mg PO DAILY atorvastatin 40 mg tablet 40 mg PO DAILY pregabalin [Lyrica] 100 mg capsule 100 mg PO TID aspirin [Adult Low Dose Aspirin] 81 mg tablet,delayed release (DR/EC) 81 mg PO DAILY carvedilol [Coreg] 12.5 mg tablet 12.5 mg PO Q12H finasteride 5 mg tablet 5 mg PO DAILY furosemide 40 mg tablet 40 mg PO QAM pantoprazole [Protonix] 40 mg tablet,delayed release (DR/EC) 40 mg PO QAM 56 Days Qty: 56 0RF potassium chloride 20 mEq tablet extended release 40 meq PO DAILY Qty: 180 0RF Follow-up/Referrals: UNKNOWN,DOCTOR [Non-Staff] - Time of Disposition: 21:08
--- OUTSIDE RECORDS SUMMARY | 2025-03-15 20:12 | XMS_ITS | Encounter Summary ---
Author Organization [facility] Address [address] [place] [address] Care Team Providers Care Pizzamaker Name Role Phone Jovan Beltran MD Unavailable UnavailPrashanth Weston MD Unavailable [phone] Myrna Robles NP Unavailable Unavailable Vero Victor OPHTHALMOLOGIST RETINA SPECIALIST Unavailable [phone] Ruddy Yang MD Primary Care Provider [phone] Hany Geller DPM Unavailable [phone] Jovan Weathers DPM Unavailable [phone] Sydney Lazaro MD Unavailable [phone] Encounter Details Date Type Department Care Team (Late st Contact Info) Description 05/22/2022 Hospital Follow-up Call [facility] Cardiovascular Care Unit [address] [place] [address] Zainab Mckinney, RN Social History [...] documented as of this encounter Care Teams Pizzamaker Relationship Specialty Start Date End Date Ruddy Yang MD [address] [place] [address] PCP - General INTERNAL MEDICINE 03/01/20 Jovan Beltran MD [facility] CLINICAL CARDIAC ELECTROPHYSIOLOGY 04/04/17 Prashanth Koch MD [facility] CARDIOVASCULAR DISEASE 08/23/17 Myrna Robles PUBLIC HEALTH NUTRITIONIST Referring Physician CARDIOVASCULAR DISEASE 05/01/18 Vero Victor, OPHTHALMOLOGIST RETINA SPECIALIST FAMILY PRACTICE 09/30/18 Hany Geller DPM [address] [place] [id number] Consulting Physician PODIATRY/SURGERY 12/06/22 12/07/23 Jovan Weathers DPM [address] [place] [phone] Consulting Physician PODIATRY 02/28/23 02/29/24 Sydney Lazaro MD [address] [place] [phone] Internal Medicine - Infectious Disease 02/28/23 02/29/24 documented as of this encounter
--- OUTSIDE RECORDS SUMMARY | 2025-03-15 20:12 | XMS_ITS | Encounter Summary ---
Author Organization [facility] System Address [facility] [place] [address] Care Team Providers Care Powertrain Design Engineer Name Role Phone Jovan Beltran MD Unavailable UnavailPrashanth Weston MD Unavailable [phone] Mumtaz Ortega MD,PHD Unavailable Parviz Mcbride MD Unavailable Unavailable Deondre Nicolas MD Unavailable [phone] Shaan Whitt MD Unavailable [phone] Myrna Robles CYBER SECURITY SYSTEMS ENGINEER Unavailable Unavailable Vero Victor SHERIFF DETECTIVE Unavailable [phone] Phillip Hammer DO Primary Care Provider [phone] Ruddy Yang MD Primary Care Provider [phone] Hany Geller DPM Unavailable [phone] Jovan Weathers DPM Unavailable [phone] Sydney Lazaro MD Unavailable [phone] Encounter Details Date Type Department Care Team (Late st Contact Info) Description 07/26/2018 Abstract [facility] [address] [place] [phone] Deondre Nicolas MD [address] [place] [address] [phone] Social History Tobacco Use Types Packs/Day Years [...] documented as of this encounter Care Teams Powertrain Design Engineer Relationship Specialty Start Date End Date Phillip Hammer DO [address] [place] [address] PCP - General FAMILY PRACTICE 01/22/20 02/29/20 Ruddy Yang MD [address] [place] [address] PCP - General INTERNAL MEDICINE 03/01/20 Jovan Beltran MD [place] Clinical Aide CLINICAL CARDIAC ELECTROPHYSIOLOGY 04/04/17 Prashanth Koch MD [place] Clinical Aide CARDIOVASCULAR DISEASE 08/23/17 Mumtaz Ortega MD,PHD [place] Clinical Aide CARDIOTHORACIC SURGERY 09/13/17 01/21/20 Parviz Artis MD CRITICAL CARE MEDICINE 10/18/17 01/21/20 Deondre Nicolas MD [address] [place] [address] NEUROLOGY 11/12/17 03/29/20 Shaan Whitt MD [address] [place] [address] UROLOGY 02/07/18 01/21/20 Myrna Robles CYBER SECURITY SYSTEMS ENGINEER [address] [place] [address] Referring Physician CARDIOVASCULAR DISEASE 05/01/18 Vero Victor, SHERIFF DETECTIVE [address] [place] [address] FAMILY PRACTICE 09/30/18 Hany Geller DPM [address] [place] [address] Consulting Physician PODIATRY/SURGERY 12/06/22 12/07/23 Jovan Weathers DPM [address] [place] [address] Consulting Physician PODIATRY 02/28/23 02/29/24 Sydney Lazaro MD [address] [place] [phone] Internal Medicine - Infectious Disease 02/28/23 02/29/24 documented as of this encounter
--- OUTSIDE RECORDS SUMMARY | 2025-03-15 20:12 | XMS_ITS | Encounter Summary ---
Author Organization [facility] Address [facility] [place] [address] Care Team Providers Care Ciso Name Role Phone Jovan Beltran MD Unavailable UnavailPrashanth Weston MD Unavailable [phone] Mumtaz Ortega MD,PHD Unavailable Parviz Mcbride MD Unavailable Unavailable Deondre Nicolas MD Unavailable [phone] Shaan Whitt MD Unavailable [phone] Myrna Robles INTEGRATED MARKETING SPECIALIST Unavailable Unavailable Vero Victor MONEY MANAGER Unavailable [phone] Phillip Hammer DO Primary Care Provider [phone] Ruddy Yang MD Primary Care Provider [phone] Hany Geller DPM Unavailable [phone] Jovan Weathers DPM Unavailable [phone] Sydney Lazaro MD Unavailable [phone] Encounter Details Date Type Department Care Team (Late st Contact Info) Description 08/05/2018 Abstract [facility] [address] [place] [phone] Denodre Nicolas MD [address] [place] [address] [phone] Social History Tobacco Use Types Packs/Day Years [...] documented as of this encounter Care Teams Ciso Relationship Specialty Start Date End Date Phillip Hammer DO [address] [place] [address] PCP - General FAMILY PRACTICE 01/22/20 02/29/20 Ruddy Yang MD [address] [place] [address] PCP - General INTERNAL MEDICINE 03/01/20 Jovan Beltran MD [place] Electrophonic Engineer CLINICAL CARDIAC ELECTROPHYSIOLOGY 04/04/17 Prashanth Koch MD [place] Electrophonic Engineer CARDIOVASCULAR DISEASE 08/23/17 Mumtaz Ortega MD,PHD [place] Electrophonic Engineer CARDIOTHORACIC SURGERY 09/13/17 01/21/20 Parviz Artis MD CRITICAL CARE MEDICINE 10/18/17 01/21/20 Deondre Nicolas MD [address] [place] [address] NEUROLOGY 11/12/17 03/29/20 Shaan Whitt MD [address] [place] [address] UROLOGY 02/07/18 01/21/20 Myrna Robles INTEGRATED MARKETING SPECIALIST [address] [place] [address] Referring Physician CARDIOVASCULAR DISEASE 05/01/18 Vero Victor, MONEY MANAGER [address] [place] [address] FAMILY PRACTICE 09/30/18 Hany Geller DPM [address] [place] [address] Consulting Physician PODIATRY/SURGERY 12/06/22 12/07/23 Jovan Weathers DPM [address] [place] [address] Consulting Physician PODIATRY 02/28/23 02/29/24 Sydney Lazaro MD [address] [place] [phone] Internal Medicine - Infectious Disease 02/28/23 02/29/24 documented as of this encounter
--- OUTSIDE RECORDS SUMMARY | 2025-03-15 20:12 | XMS_ITS | Encounter Summary ---
Author Organization [facility] Address [facility] [place] [address] Care Team Providers Care Claim Service Representative Name Role Phone Jovan Beltran MD Unavailable UnavailPrashanth Weston MD Unavailable [phone] Myrna Robles NP Unavailable Unavailable Vero Victor CLINICAL FELLOW Unavailable [phone] Ruddy Yang MD Primary Care Provider [phone] Encounter Details Date Type Department Care Team (Late st Contact Info) Description 11/19/2024 Hospital Orders Only [facility] [address] [place] [address] Raisa Shearer, CLINICAL FELLOW [address] [place] [address] Social History Tobacco Use Types Packs/Day Years [...] Assessment Author Status No 05/16/2022 11:00 AM Mariam Johnson RN Active * Do you have difficulty dressing or bathing? Answer Date of Assessment Author Status No 05/16/2022 11:00 AM Mariam Johnson RN Active * Because of a physical, mental, or emotional condition, do you have difficulty doing errands alone such as visiting a doctor's office or shopping? Answer Date of Assessment Author Status No 05/16/2022 11:00 AM Mariam Johnson RN Active * Calculated C-SSRS Risk Score (Lifetime/Recent) Answer Date of Assessment Author Status No Risk Indicated 11/19/2024 10:18 AM Bharati Booth RN Active * [place] Suicide Severity Rating Scale (Screener/Recent Self-Report) Question Answer Date of Assessment Author Status 1. Wish to be (Past 1 Month) No 11/19/2024 10:18 AM Malorie Booth RN Act kim 2. Non-Specific Active Suicidal [...] Date Author Status No 05/16/2022 11:00 AM Mariam Johnson RN Active documented in this encounter Plan [...] documented as of this encounter Care Teams Claim Service Representative Relationship Specialty Start Date End Date Ruddy Yang MD [address] [place] [address] PCP - General INTERNAL MEDICINE 03/01/20 Jovan Beltran MD [place] Inshore Undersea Warfare Officer CLINICAL CARDIAC ELECTROPHYSIOLOGY 04/04/17 Prashanth Koch MD [place] Inshore Undersea Warfare Officer CARDIOVASCULAR DISEASE 08/23/17 Myrna Robles NP Referring Physician CARDIOVASCULAR DISEASE 05/01/18 Vero Victor, CLINICAL FELLOW FAMILY PRACTICE 09/30/18 documented as of this encounter
--- OUTSIDE RECORDS SUMMARY | 2025-03-15 20:12 | XMS_ITS | Encounter Summary ---
Author Organization [facility] Address [address] [place] [address] Care Team Providers Care Corner Cutter Machine Operator Name Role Phone Jovan Beltran MD Unavailable UnavailPrashanth Weston MD Unavailable [phone] Mumtaz Ortega MD,PHD Unavailable Parviz Mcbride MD Unavailable Unavailable Deondre Nicolas MD Unavailable [phone] Shaan Whitt MD Unavailable [phone] Myrna Robles ACADEMIC COUNSELOR Unavailable Unavailable Vero Victor INTERNET DATABASE SPECIALIST Unavailable [phone] Phillip Hammer DO Primary Care Provider [phone] Ruddy Yang MD Primary Care Provider [phone] Hany Geller DPM Unavailable [phone] Jovan Weathers DPM Unavailable [phone] Sydney Lazaro MD Unavailable [phone] Encounter Details Date Type Department Care Team (Late st Contact Info) Description 11/09/2017 Abstract [facility] [address] [place] [address] , Generic Conversion, Social History Tobacco Use [...] documented as of this encounter Care Teams Corner Cutter Machine Operator Relationship Specialty Start Date End Date Phillip Hammer DO [address] [place] [address] PCP - General FAMILY PRACTICE 01/22/20 02/29/20 Ruddy Yang MD [address] [place] [phone] PCP - General INTERNAL MEDICINE 03/01/20 Jovan Beltran MD [place] Linotypist CLINICAL CARDIAC ELECTROPHYSIOLOGY 04/04/17 Prashanth Koch MD [place] Linotypist CARDIOVASCULAR DISEASE 08/23/17 Mumtaz Ortega MD,PHD [place] Linotypist CARDIOTHORACIC SURGERY 09/13/17 01/21/20 Parviz Artis MD CRITICAL CARE MEDICINE 10/18/17 01/21/20 Deondre Nicolas MD [address] [place] [address] NEUROLOGY 11/12/17 03/29/20 Shaan Whitt MD [address] [place] [address] UROLOGY 02/07/18 01/21/20 Myrna Robles, ACADEMIC COUNSELOR [address] [place] [address] Referring Physician CARDIOVASCULAR DISEASE 05/01/18 Vero Victor FNP [address] [place] [address] FAMILY PRACTICE 09/30/18 Hany Geller DPM [facility] [place] [address] Consulting Physician PODIATRY/SURGERY 12/06/22 12/07/23 Jovan Weathers DPM [address] [place] [address] Consulting Physician PODIATRY 02/28/23 02/29/24 Sydney Lazaro MD [address] [place] [address] Internal Medicine - Infectious Disease 02/28/23 02/29/24 documented as of this encounter
--- OUTSIDE RECORDS SUMMARY | 2025-03-15 20:12 | XMS_ITS | Encounter Summary ---
Author Organization [facility] System Address [address] [place] [address] Care Team Providers Care Car Repairer Apprentice Name Role Phone Jovan Beltran MD Unavailable UnavailPrashanth Weston MD Unavailable [phone] Mumtaz Ortega MD,PHD Unavailable Parviz Mcbride MD Unavailable Unavailable Deondre Nicolas MD Unavailable [phone] Shaan Whitt MD Unavailable [phone] Myrna Robles SUPERVISOR TOWER Unavailable Unavailable Vero Victor BIOINFORMATICIAN Unavailable [phone] Phillip Hammer DO Primary Care Provider [phone] Ruddy Yang MD Primary Care Provider [phone] Hany Geller DPM Unavailable [phone] Jovan Weathers DPM Unavailable [phone] Sydney Lazaro MD Unavailable [phone] Encounter Details Date Type Department Care Team (Late st Contact Info) Description 02/02/2016 Abstract [facility] [address] [place] [address] Jovan Beltran MD Social History [...] documented as of this encounter Care Teams Car Repairer Apprentice Relationship Specialty Start Date End Date Phillip Hammer DO [address] [place], [place] [phone] PCP - General FAMILY PRACTICE 01/22/20 02/29/20 Ruddy Yang MD [address] [place] [phone] PCP - General INTERNAL MEDICINE 03/01/20 Jovan Beltran MD [place] Gunite Mixer CLINICAL CARDIAC ELECTROPHYSIOLOGY 04/04/17 Prashanth Koch MD [place] Gunite Mixer CARDIOVASCULAR DISEASE 08/23/17 Mumtaz Ortega MD,PHD [place] Gunite Mixer CARDIOTHORACIC SURGERY 09/13/17 01/21/20 Parviz Artis MD CRITICAL CARE MEDICINE 10/18/17 01/21/20 Deondre Nicolas MD [address] [place] [address] NEUROLOGY 11/12/17 03/29/20 Shaan Whitt MD [address] [place] [address] UROLOGY 02/07/18 01/21/20 Myrna Robles, SUPERVISOR TOWER [address] [place] [address] Referring Physician CARDIOVASCULAR DISEASE 05/01/18 Vero Victor FNP [address] [place] [address] FAMILY PRACTICE 09/30/18 Hany Geller DPM [facility] [place] [address] Consulting Physician PODIATRY/SURGERY 12/06/22 12/07/23 Jovan Weathers DPM [address] [place] [address] Consulting Physician PODIATRY 02/28/23 02/29/24 Sydney Lazaro MD [address] [place] [phone] Internal Medicine - Infectious Disease 02/28/23 02/29/24 documented as of this encounter
--- OUTSIDE RECORDS SUMMARY | 2025-03-15 20:12 | XMS_ITS | Encounter Summary ---
Author Organization [facility] Address [facility] [place] [address] Care Team Providers Care Power Plant Mechanic Name Role Phone Jovan Beltran MD Unavailable UnavailPrashanth Weston MD Unavailable [phone] Mumtaz Ortega MD,PHD Unavailable Parviz Mcbride MD Unavailable Unavailable Deondre Nicolas MD Unavailable [phone] Shaan Whitt MD Unavailable [phone] Myrna Robles PRECISION FILER HAND Unavailable Unavailable Vero Victor BULK PALLET BUILDER Unavailable [phone] Phillip Hammer DO Primary Care Provider [phone] Ruddy Yang MD Primary Care Provider [phone] Hany Geller DPM Unavailable [phone] Jovan Weathers DPM Unavailable [phone] Sydney Lazaro MD Unavailable [phone] Encounter Details Date Type Department Care Team (Late st Contact Info) Description 01/31/2019 Abstract [facility] [address] [place] [address] , Generic Conversion, Social History [...] documented as of this encounter Care Teams Power Plant Mechanic Relationship Specialty Start Date End Date Phillip Hammer DO [address] [place] [address] PCP - General FAMILY PRACTICE 01/22/20 02/29/20 Ruddy Yang MD [address] [place] [phone] PCP - General INTERNAL MEDICINE 03/01/20 Jovan Beltran MD [place] Palliative Medicine Physician CLINICAL CARDIAC ELECTROPHYSIOLOGY 04/04/17 Prashanth Koch MD [place] Palliative Medicine Physician CARDIOVASCULAR DISEASE 08/23/17 Mumtaz Ortega MD,PHD [place] Palliative Medicine Physician CARDIOTHORACIC SURGERY 09/13/17 01/21/20 Parviz Artis MD CRITICAL CARE MEDICINE 10/18/17 01/21/20 Deondre Nicolas MD [address] [place] [address] 374612 NEUROLOGY 11/12/17 03/29/20 Shaan Whitt MD [address] [place] [address] UROLOGY 02/07/18 01/21/20 Myrna Robles, PRECISION FILER HAND [address] [place] [address] Referring Physician CARDIOVASCULAR DISEASE 05/01/18 Vero Victor FNP [address] [place] [address] FAMILY PRACTICE 09/30/18 Hany Geller DPM [facility] [place] [address] Consulting Physician PODIATRY/SURGERY 12/06/22 12/07/23 Jovan Weathers DPM [address] [place] [address] Consulting Physician PODIATRY 02/28/23 02/29/24 Sydney Lazaro MD [address] [place] [phone] Internal Medicine - Infectious Disease 02/28/23 02/29/24 documented as of this encounter
--- OUTSIDE RECORDS SUMMARY | 2025-03-15 20:13 | XMS_ITS | Clinical Summary ---
Author Organization [facility] Address [address] [place] [address] Care Team Providers Care Remote Control Assembler Name Role Phone Jovan Beltran MD Unavailable UnavailPrashanth eWston MD Unavailable [phone] Myrna Robles NP Unavailable Unavailable Vero Victor INTERPRETIVE PROGRAM COORDINATOR Unavailable [phone] Ruddy Yang MD Primary Care Provider [phone] Allergies Active Allergy Reactions Criticality Noted Date [...] other site, stage 4 03/05/2023 Acute osteomyelitis ([facility]) 03/05/2023 PICC (peripherally inserted central catheter) in place 2023 GI bleed 05/15/2022 Chronic systolic heart failure ([facility]) 05/11/2020 Hypokalemia 01/22/2020 Foot-drop 11/07/2017 Neuropathy, 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 Stroke ([facility]) 11/01/2017 Acute on chronic diastolic heart failure ([facility] 10/08/2017 Stage 3 chronic kidney disease 10/08/2017 Acute right MCA stroke ([facility]) 018 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 Nonrheumatic aortic valve stenosis 07/11/2017 Abdominal aortic aneurysm (AAA) without rupture 07/11/2017 Persistent atrial fibrillation ([facility]) 04/04/2017 Pacemaker 04/04/2017 Osteoarthritis of lumbar spine 08/10/2015 Chronic obstructive pulmonary disease ([facility]) 01/29/2014 Overview (12/31/2018): Overview: COPD S/P AAA (abdominal aortic aneurysm) repair PVD (peripheral vascular disease) Hypertension Hyperlipidemia Carotid stenosis CAD (coronary artery disease) Orthostatic hypotension Overview (08/23/2017): Near syncope CKD (chronic kidney disease) stage 3, GFR 30-59 ml/min Hypokalemia Paroxysmal atrial fibrillation ([facility]) Atrial fibrillation, persistent ([facility] ) Chronic anticoagulation Pressure ulcer of other site, stage 2 Resolved Problems Problem Noted Date Diagnosed Date Resolved Date ICD (implantable cardioverte r-defibrillator) in place 04/04/2017 04/04/2017 Paroxysmal atrial fibrillati on ([facility]) 02/10/2018 Paroxysmal atrial fibrillati on ([facility]) 05/29/2018 Atrial fibrillation, persist ent ([facility]) 05/29/2018 Encounters Date Type Department Care Team Description 12/31/2024 12:52 PM CDT - 12/31/2024 11:59 PM CDT Hospital Encounter [facility] [address] [place] [address] Raisa Shearer, CAROLYN Discharge Disposition: Home or Self Care (Routine Discharge) 12/31/2024 Travel 12/24/2024 Travel 12/17/2024 10:58 AM CDT - 12/17/2024 11:59 PM CDT Hospital Encounter [facility] [address] [place] [address] Raisa Shearer, CAROLYN Discharge Disposition: Home or Self Care (Routine Discharge) 12/17/2024 Travel from Last 3 Months Immunizations Immunization [...] 10:25 AM CDT Height 172.7 cm (5' 8) 11/19/2024 10:25 AM CDT Body Mass Index 25.09 11/19/2024 10:25 AM CDT Plan of Treatment Health Maintenance Due Date Last Done Comments Pneumococcal Vaccine: 50+ Years (1 of 2 - PCV) 1960 Zoster Vaccines (1 of 2) 1991 Annual Medicare Wellness Visit 2006 RSV Immunization or 60+ Years (1 - 1-dose 75+ series) 2016 ASCVD LDL 10/18/2018 10/18/2017, 10/03/2017, 04/04/2015 COVID-19 Vaccine (3 - 2023-2 5 season) 2024 11/09/2020, 10/19/2020 PHQ-2 (Physician [place]) 08/26/2024 DTaP, Tdap and Td Vaccines ( [...] home upon discharge Lifestyle No Beryl Freeman, securities supervisor Procedure Name Priority Date/Time Associated Diagnosis Comments LIPID PANEL TIMED 10/18/2017 2:35 AM EMERGENCY DEPARTMENT COORDINATOR from Last 3 Months or Most Recently Relevant to Health Maintenance Results * (ABNORMAL) LIPID PANEL (10/18/2017 2:35 AM EMERGENCY DEPARTMENT COORDINATOR) [facility] CHOLESTEROL 128 0 - 200 MG/DL 10/18/2017 4:25 AM EMERGENCY DEPARTMENT COORDINATOR [facility] Comment:DESIRABLE: <200 TRIGLYCERIDES 190(H) 0 - 149 MG/DL 10/18/2017 4:25 AM EMERGENCY DEPARTMENT COORDINATOR [facility] Comment:150-199 BORDERLINE H IGH HDL 24(L) >39 MG/DL 10/18/2017 4:25 AM EMERGENCY DEPARTMENT COORDINATOR [facility] Comment:LOW: <40 DIRECT LDL 65 0 - 129 MG/DL 10/18/2017 4:25 AM EMERGENCY DEPARTMENT COORDINATOR [facility] Comment:<100 OPTIMAL 10/18/2017 2:35 AM EMERGENCY DEPARTMENT COORDINATOR 10/18/2017 3:47 AM EMERGENCY DEPARTMENT COORDINATOR us Generic Conversion Md [facility] Final R esult [facility] [address] [place] [address], [id number] from Last 3 Months or Most Recently Relevant to Health Maintenance Additional Health Concerns Infection Onset Date 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 Insurance Advance Directives Documents on File Type Date Recorded Patient Pump Oiler Expl anation Advance Directives and Living Will 05/17/2022 11:46 AM 03/09/1996 POA FOR HEALTH CARE Advance Directives and Living Will 11/09/2017 ADVANCE DIRECTIVE Advance Directives and Living Will 11/09/2017 ADVANCE DIRECTIVE Advance Directives and Living Will 10/29/2017 ADVANCE DIRECTIVE Advance Directives and Living Will 10/29/2017 SHORT FORM POWER OF ELECTRONIC TRANSACTION IMPLEMENTER Advance Directives and Living Will 10/17/2017 ADVANCE DIRECTIVE Advance Directives and Living Will 10/17/2017 SHORT FORM POWER OF ELECTRONIC TRANSACTION IMPLEMENTER Advance Directives and Living Will 10/17/2017 ADVANCE DIRECTIVE Advance Directives and Living Will 10/17/2017 SHORT FORM POWER OF ELECTRONIC TRANSACTION IMPLEMENTER Advance Directives and Living Will 10/10/2017 ADVANCE DIRECTIVE Advance Directives and Living Will 10/10/2017 SHORT FORM POWER OF ELECTRONIC TRANSACTION IMPLEMENTER Advance Directives and Living Will 10/09/2017 ADVANCE DIRECTIVE Advance Directives and Living Will 10/02/2017 ADVANCE DIRECTIVE Advance Directives and Living Will 10/01/2017 SHORT FORM POWER OF ELECTRONIC TRANSACTION IMPLEMENTER Advance Directives and Living Will 10/01/2017 ADVANCE [...] 10:14 PM 05/21/2022 6:14 PM Care Teams Remote Control Assembler Relationship Specialty Start Date End Date Ruddy Yang MD [address] [place] [address] PCP - General INTERNAL MEDICINE 03/01/20 Jovan Beltran MD [place] Color Mixer CLINICAL CARDIAC ELECTROPHYSIOLOGY 04/04/17 Prashanth Koch MD [place] Color Mixer CARDIOVASCULAR DISEASE 08/23/17 Myrna Robles NP Referring Physician CARDIOVASCULAR DISEASE 05/01/18 Vero Victor FNP [facility] 09/30/18
--- NOTE | 2025-03-15 20:33 | PC.NURSE ---
pt spouse at bedside at this time. ic designer gate arrays at bedside for lab draw.
[2025-03-15 20:39] LABS: Hematocrit 28.9 % (37.0-46.0); Hemoglobin 9.0 g/dL (12.4-15.3); Immature Granulocyte Percent A 0.5 % (0.0-0.0); Lymphocytes Absolute Auto 0.69 K/mm3 (1.10-4.50); Mean Corpuscular HGB Conc 31.1 g/dL (32-36); Mean Corpuscular Hemoglobin 29.3 pg (27.0-31.0); Mean Corpuscular Volume 94.1 fL (78.0-102.0); Nucleated Red Blood Cells Absolute Auto 0.00 K/mm3 (0.00-0.00); Nucleated Red Blood Cells Perc 0.0 % (0-0.0); Platelet Count Result 121 K/mm3 (150-420); Red Blood Count 3.07 M/mm3 (4.70-6.10); White Blood Count 8.2 K/mm3 (4.8-10.8)
[2025-03-15 20:52] LABS: Alanine Aminotransferase 22 U/L (6-50); Albumin Level 3.8 g/dL (3.5-5.1); Alkaline Phosphatase 44 U/L (38-126); Anion Gap 9 mmol/L (4-12); Aspartate Amino Transferase 33 U/L (17-59); Bilirubin,Total 2.1 mg/dL (0.2-1.3); Blood Urea Nitrogen 22 mg/dL (9-20); Calcium 8.9 mg/dL (8.4-10.2); Carbon Dioxide 26 mmol/L (22-30); Chloride 101 mmol/L (98-107); Estimated CRCL calculation 35 ml/min; Estimated Glomerular Filt Rate 49; Glucose 107 mg/dL (65-110); Osmolality Calculated 285 mOsm/kg (285-295); Potassium 4.5 mmol/L (3.4-5.0); Sodium 136 mmol/L (137-145); Total Protein 6.8 g/dL (6.3-8.2)
[2025-03-15 20:53] LABS: INR 1.2; Partial Thromboplastin Time 30.8 Sec (23.9-30.70); Prothrombin Time 13.4 Seconds (9.50-12.1)
--- NOTE | 2025-03-15 20:59 | PC.NURSE ---
spoke with , she stated patients symptoms started at noon today. ERP at bedside during assessment.
[2025-03-15 21:02] LABS: Troponin I 0.030 ng/mL (0.000-0.034)
[2025-03-15 21:07] LABS: Add Urine Microscopic? NO; Appearance Urine Clear (Clear); Glucose Urine UA Negative (Negative); Leukocyte Esterase Ur Negative LEU/UL (Negative); Nitrate Urine Negative (Negative); Specific Grav Ur 1.010 (1.010-1.020)
--- NOTE | 2025-03-18 12:37 | PC.NURSE ---
PRELIMINARY BLOOD CULTURE REPORT; NO GROWTH DETECTED AT THIS TIME.
--- NOTE | 2025-03-19 12:25 | PC.NURSE ---
blood culture , preliminary, no growth
--- NOTE | 2025-03-20 13:02 | PC.NURSE ---
preliminary blood cultures x2 reviewed. no growth to date
--- NOTE | 2025-03-23 13:12 | PC.NURSE ---
FINAL BLOOD CULTURE REPORT; NO GROWTH IN 5 DAYS.
== END 2025-03-15 21:52 | disposition short-term general hospital (02) ==
PROVIDERS: Emergency Provider Emergency Medicine; PCP Internal Medicine
DX: I62.00 Nontraumatic subdural hemorrhage, unspecified (principal); I63.9 Cerebral infarction, unspecified; I25.2 Old myocardial infarction; I25.10 Atherosclerotic heart disease of native coronary artery without angina pectoris; I12.9 Hypertensive chronic kidney disease with stage 1 through stage 4 chronic kidney disease, or unspecified chronic kidney disease; N18.30 Chronic kidney disease, stage 3 unspecified; I13.0 Hypertensive heart and chronic kidney disease with heart failure and stage 1 through stage 4 chronic kidney disease, or unspecified chronic kidney disease; I50.9 Heart failure, unspecified; I48.91 Unspecified atrial fibrillation; F17.210 Nicotine dependence, cigarettes, uncomplicated
CPT/HCPCS: 36415; 70450; 71045; 80053; 81003; 82948; 83605; 84484; 85025; 85610; 85730; 93005; 96360; 99285